=== PATIENT | female | born 1940 | race Caucasian/White ===

== ENCOUNTER 2017-08-19 17:36 | Emergency (ER) | payer MEDICARE, MEDICAID, SELFPAY ==
[2017-08-19 17:54] VITALS: BP 145/79; PULSE 89; RESP 18; TEMP 36.8; O2SAT 98; BMI 22.0
--- NOTE | 2017-08-19 18:08 | HMH.EDGENADL ---
ED Disposition Clinical Impression: RLL pneumonia, UTI (urinary tract infection) Disposition: Home, Self-Care Condition on Discharge: Fair Additional Instructions: 1- start abx 2- albuterol mdi q 4-6 hours. 3- continue mucinex 4- chest percussion. 5- follow up with Dr Dickinson in AM. 6- observe for fever and return for any new sx. Prescriptions: Albuterol Sulfate [Albuterol HFA Inhaler] 1 - 2 puffs IH Q4-6H PRN #1 inh PRN Reason: Shortness Of Breath Or Wheezing Azithromycin [Zithromax 250mg tab] 250 mg PO DIRECTED #6 tab cefUROXime axetil [Ceftin 250mg Tablet] 250 mg PO BID #20 tab Referrals: Triston Campos MD [Primary Care Provider] - - Critical Care Critical Care Time: No Attestation: On , the high probability of a clinically significant, sudden or life threatening deterioration of the following system(s) required my full and direct attention, intervention and personal management. The time I documented below is in addition to time spent performing reported procedures but includes the following listed in this critical care notation. Medical Decision Making Vital Signs: 08/19/17 17:54 Temperature 98.3 F Temperature Source Oral Pulse Rate [Right Brachial] 89 Respiratory Rate 18 Blood Pressure [Right Arm] 145/79 Blood Pressure Mean [Right Arm] 101 Blood Pressure Source [Right Arm] Automatic Cuff Blood Pressure Position [Right Arm] Sitting 02 Sat by Pulse Oximetry 98 Oxygen Delivery Method Room Air - Lab Data Lab results reviewed: Yes: I reviewed the patient's lab results. Lab Results 08/19/17 18:01: Urine Color Yellow, Urine Appearance Sl cloudy, Urine pH 6.0, Ur Specific [place] 1.025, Urine Protein Negative, Urine Glucose (UA) Negative, Urine Ketones Negative, Urine Blood 1+, Urine Nitrate Negative, Urine Bilirubin Negative, Urine Urobilinogen 0.2, Ur Leukocyte Esterase 1+ A, Urine RBC Occasional, Urine WBC 5-10, Ur Squamous Epith Cells 10-20, Urine Bacteria 1+ 08/19/17 18:05: WBC 9.5, RBC 4.30, Hgb 13.6, Hct 40.6, MCV 94.5, MCH 31.6 H, MCHC 33.5, RDW 12.1, Plt Count 180, MPV 8.7, Neut % (Auto) 76.1, Lymph % (Auto) 17.7, [place] % (Auto) 5.1, Eos % (Auto) 0.8, Baso % (Auto) 0.2, Neut # (Auto) 7.2, Lymph # (Auto) 1.7, [place] # (Auto) 0.5, Eos # (Auto) 0.1, Baso # (Auto) 0.0 08/19/17 18:05: Sodium 141, Potassium 4.3, Chloride 105, Carbon Dioxide 30, Anion Gap 10.3, BUN 20 H, Creatinine 0.95, Estimated Creat Clear 48, Estimated GFR 57 L, Est GFR ( Amer) 69, Glucose 98, Calcium 9.3, Total Bilirubin 0.4, AST 9 L, ALT 24, Alkaline Phosphatase 69, Total Protein 7.2, Albumin 3.1 L, Globulin 4.1 H, Albumin/Globulin Ratio 0.8 L Result diagrams: 08/19/17 18:05 08/19/17 18:05 Orders (Tests/Meds): ED MEDICATIONS Discontinued Medications Generic Name Dose Route Start Last Admin Trade Name Freq PRN Reason Stop Dose Admin Albuterol/Ipratropium 3 ml 08/19/17 18:13 Duoneb 3ml Neb IH 08/19/17 18:14 ONCE ONE Sodium Chloride 1,000 mls @ 999 mls/hr 08/19/17 18:15 Sod Chlor 0.9% 1000ml Bag IV 08/19/17 19:15 .Q1H1M JACQUI Ceftriaxone Sodium 1 gm/ 50 mls @ 100 mls/hr 08/19/17 18:11 Sodium Chloride IV 08/19/17 18:40 ONCE ONE ORDERS Category Date Time Status XR chest 2V Stat Exams 08/19/17 18:11 Taken Lactic Acid Stat Lab 08/19/17 16:45 Received Blood Culture Stat Micro 08/19/17 16:45 Received Sputum Culture & Gram Stain Stat Micro 08/19/17 18:11 Ordered Urine Culture Stat Micro 08/19/17 18:01 Received - Radiology Data #1 Image(s): Chest Image Reviewed: Yes I reviewed the patient's radiology image Preliminary Findings: Abnormal Right lower lobe infiltrate - Jacob Inquiry Pt receiving controlled substance: No Jacob was queried for this patient: No Medical Decision Making Narrative: I discussed with the patient and her family the need for admission to receive breathing treatments chest percussion and star
--- NOTE | 2017-08-19 18:11 | XR_ITS ---
XR chest 2V HISTORY: ITS.REASON: cough ORDERING PHYSICIAN: Wellington Price MD PATIENT AGE: 76 years COMPARISON: None available FINDINGS: There is borderline cardiomegaly without failure. Patchy density is present in the right lower lobe suspicious for developing pneumonia. The remaining lungs are clear. No obvious effusion. Wedge compression changes involve L1 vertebral body unchanged from older lumbar spine film of 10/16/2010. Kyphosis is present at the region with lordosis in the lower thoracic spine. IMPRESSION: Patchy pneumonia in the right lower lobe Chronic wedge compression changes of L1
[2017-08-19 18:22] LABS: Microscopic, Urine URINE MICROSCOPIC (MICROSCOPIC)
[2017-08-19 18:24] LABS: Basophils % 0.2 % (0.1-2.0); Eosinophils # 0.1 K/mm3 (0.0-0.4); Eosinophils % 0.8 % (0.1-12.0); Hematocrit 40.6 % (37.0-47.0); Hemoglobin 13.6 g/dL (12.2-16.2); Lymphocytes # 1.7 K/mm3 (0.7-4.5); Lymphocytes % 17.7 K/mm3 (10-50); Mean Corpuscular HGB Conc 33.5 g/dL (31.8-35.4); Mean Corpuscular Hemoglobin 31.6 pg (27.0-31.2); Mean Corpuscular Volume 94.5 fl (81-99); Mean Platelet Volume 8.7 fl (7.4-10.4); Monocytes # 0.5 K/mm3 (0.1-1.0); Monocytes % 5.1 % (1.7-9.3); Neutrophils # 7.2 K/mm3 (1.8-7.8); Neutrophils % 76.1 % (37.0-80.0); Platelet Count 180 K/mm3 (142-424); Red Cell Distribution Width 12.1 % (11.5-17.5); White Blood Count 9.5 K/mm3 (4.8-10.8)
[2017-08-19 18:30] LABS: Appearance,Urine SL CLOUDY (Clear); Bilirubin,Urine Negative (Negative); Blood, Urine 1+ (Negative); Color,Urine YELLOW (Yellow); Glucose,Urine (UA) Negative (Negative); Ketones,Urine Negative (Negative); Leukocyte Esterase,Urine 1+ (Negative); Nitrate,Urine Negative (Negative); Protein,Urine Negative (Negative); Specific Gravity, Urine 1.025 (1.005-1.030); Urobilinogen,Urine 0.2 EU/dl (0.2)
[2017-08-19 18:33] LABS: Alanine Aminotransferase 24 U/L (12-78); Albumin Level 3.1 gm/dL (3.4-5.0); Albumin/Globulin Ratio 0.8 (1.1-1.8); Alkaline Phosphatase 69 U/L (46-116); Anion Gap 10.3 mEq/L (5-15); Aspartate Amino Transferase 9 U/L (15-37); Bilirubin,Total 0.4 mg/dL (0.2-1.0); Blood Urea Nitrogen 20 mg/dL (7-18); Calcium 9.3 mg/dL (8.5-10.1); Carbon Dioxide 30 mmol/L (21.0-32.0); Chloride 105 mmol/L (98-107); Creatinine Clearance Estimated 48 mL/min (0-300); Creatinine,Serum 0.95 mg/dL (0.55-1.02); Estimated Glomerular Filt Rate 57 ml/min (>60); GFR (African American) 69 ML/MIN (>60); Globulin 4.1 gm/dl (1.3-3.2); Glucose 98 mg/dL (74-106); Potassium 4.3 mmoL/L (3.5-5.1); Sodium 141 mmol/L (136-145); Total Protein,Serum 7.2 gm/dL (6.4-8.2)
[2017-08-19 18:45] LABS: Bacteria,Urine 1+ /lpf; RBC,Urine Occasional #/hpf (0-3)
[2017-08-19 19:38] VITALS: PULSE 83; PULSE 85
[2017-08-19 19:51] LABS: Lactic Acid 1.1 mmol/L (0.4-2.0)
[2017-08-19 20:33] VITALS: BP 139/77; PULSE 85; RESP 18; TEMP 37.2; O2SAT 98
== END 2017-08-19 20:37 | disposition home or self-care (01) ==
PROVIDERS: Emergency Provider Emergency Medicine; Family Provider Family Medicine; PCP Family Medicine
DX: J18.1 Lobar pneumonia, unspecified organism (principal); N39.0 Urinary tract infection, site not specified
CPT/HCPCS: 71046; 80053; 81001; 83605; 85025; 87040; 87086; 87088; 87186; 96365; 96367; 99283

== ENCOUNTER → 2017-09-20 18:42 | Outpatient (CLI) | payer MEDICARE, MEDICAID, SELFPAY ==
--- NOTE | 2017-09-20 | XR_ITS ---
XR chest 2V HISTORY: ITS.REASON: PNEUMONIA DUE TO INFECTIOUS ORGANISM ORDERING PHYSICIAN: Triston Campos MD PATIENT AGE: 76 years COMPARISON: 08/19/2017 FINDINGS: The cardiomediastinal silhouette and pulmonary vascularity are within normal limits. There is chronic coarsening of the bronchovascular markings with no change in the patchy density in the right lung base which could be related to atelectasis infiltrate or chronic change. Patchy density also noted in the left lung base consistent with atelectasis or infiltrate. Reversal of the thoracic kyphosis once again noted. IMPRESSION: Chronic coarsening of the bronchovascular markings with patchy density in both lower lobes which could be related to combination of atelectasis and/or infiltrate with chronic change
== END ==
PROVIDERS: PCP Family Medicine; Visit Provider Family Medicine
DX: J18.9 Pneumonia, unspecified organism (principal)
CPT/HCPCS: 71046

== ENCOUNTER → 2018-01-13 12:05 | Outpatient (CLI) | payer MEDICARE, MEDICAID, SELFPAY ==
--- NOTE | 2018-01-13 12:14 | XR_ITS ---
XR ribs LT 2V HISTORY: Posttraumatic pain ITS.REASON: CHEST WALL PAIN ORDERING PHYSICIAN: Triston Campos MD PATIENT AGE: 77 years Comparison: None FINDINGS: Multiple views of the Left ribs were obtained. No fracture or dislocation. No lytic or blastic change. IMPRESSION: Negative RIBS. If pain persists, consider follow-up exam in 7-[address] with 3-D reformats.
--- NOTE | 2018-01-13 12:14 | XR_ITS ---
XR chest 2V HISTORY: ITS.REASON: CHEST WALL PAIN ORDERING PHYSICIAN: Triston Campos MD PATIENT AGE: 77 years COMPARISON: 09/20/2017 FINDINGS: The cardiomediastinal silhouette and pulmonary vascularity are within normal limits. Chronic changes are present in the lung bases. No lobar consolidation or collapse. Old wedge compression changes involve the L1 vertebral body change. No acute bony anomalies evident. IMPRESSION: No change with no acute finding.
== END ==
PROVIDERS: PCP Family Medicine; Visit Provider Family Medicine
DX: R07.89 Other chest pain (principal)
CPT/HCPCS: 71046; 71100

== ENCOUNTER → 2019-03-02 14:56 | Outpatient (CLI) | payer MEDICARE, MEDICAID, SELFPAY ==
--- NOTE | 2019-03-02 15:05 | CA_ITS ---
APPROVED REPORT Health Care / Medical Job Titles: SESAR Laterality: Bilateral Study Quality: Good Indications: RT BRUIT Risk Factors Smoking Doppler Spectral Velocity Analysis ECA (R) 130.00/11.30 cm/s ECA (L) 110.00/9.79 cm/s dICA (R) 113.00/23.70 cm/s dICA (L) 66.10/19.40 cm/s [place] (R) 106.00/24.70 cm/s [place] (L) 61.50/18.20 cm/s pICA (R) 92.80/18.80 cm/s pICA (L) 65.00/14.80 cm/s dCCA (R) 83.30/18.90 cm/s dCCA (L) 55.00/10.50 cm/s pCCA (R) 91.70/20.80 cm/s pCCA (L) 75.40/13.60 cm/s Vert (R) 85.90/ cm/s Vert (L) 58.10/13.70 cm/s ICA/CCA 1.35 ICA/CCA 1.18 Findings Duplex evaluation demonstrates stenosis of the right proximal internal carotid artery in the range of 20-49% with PSV <140 cm/sec, EDV <100 cm/sec, and IC/CC Ratio <4.0.Duplex evaluation demonstrates stenosis of the left proximal internal carotid artery in the range of 20-49% with PSV <140 cm/sec, EDV <100 cm/sec, and IC/CC Ratio <4.0. Retrograde flow seen right vertebral artery and antegrade flow seen left verterbral artery. Bilateral solid thyroid nodules seen. Conclusion Duplex evaluation demonstrates stenosis of the right proximal internal carotid artery in the range of 20-49% Stenosis of the left proximal internal carotid artery in the range of 20-49% Retrograde flow seen right vertebral artery which may be seen with subclavian stenosis and may be better evaluated with CTA. Antegrade flow seen left verterbral artery. Bilateral solid thyroid nodules seen. Consider dedicated thyroid ultrasound Electronically signed by : Timothy Oliver MD 03/03/2019 14:55:50
== END ==
PROVIDERS: PCP Family Medicine; Referring Provider Family Medicine; Visit Provider Family Medicine
DX: R09.89 Other specified symptoms and signs involving the circulatory and respiratory systems (principal)
CPT/HCPCS: 93880

== ENCOUNTER → 2019-03-09 18:42 | Outpatient (CLI) | payer MEDICARE, MEDICAID, SELFPAY ==
--- NOTE | 2019-03-09 18:51 | XR_ITS ---
PROCEDURE: XR LUMBAR SPINE MIN 4V CLINICAL INDICATION: RIGHT HIP PAIN COMPARISON: No exams were available for comparison FINDINGS: There is reversal of normal lordotic curvature with apex of the reversal of curvature at the L1 level. There is an old compression fracture of L1 with approximately 40 percent loss of height anteriorly and prominent anterior osteophytic spurring at the L1-2 level. There also is multilevel anterior and lateral osteophytic spurring at all levels of the lumbar spine along with multilevel disc space narrowing as well. There is no definite pars defect seen. There are mild hypertrophic facet changes at the L4-5 and L5-S1 levels. The SI joints are normal. IMPRESSION: Prominent multilevel degenerate changes as described with non recent compression fracture of L1 Dictated by: Dr. Dawson Mir MD 03/10/2019 08:[address] Dawson Mir MD in [place] 03/10/2019 08:45
--- NOTE | 2019-03-09 18:51 | XR_ITS ---
PROCEDURE: XR HIP RT 2-3V W/PELVIS CLINICAL INDICATION: RIGHT HIP PAIN COMPARISON: [id number] HIP LT 2-3V W/PELVIS IF PERFOR from 10/12/2016 FINDINGS: No fracture or dislocation is evident. There is moderate asymmetrical joint space narrowing of the right hip. There is mild asymmetrical joint space narrowing left hip. The SI joints and symphysis pubis appear normal. The soft tissues about both hips are normal. Prominent degenerate changes are seen lower lumbar spine described previously. IMPRESSION: Moderate osteoarthritic change right hip Dictated by: Dr. Dawson Mir MD 03/10/2019 08:[address] Dawson Mir MD in [place] 03/10/2019 08:58
== END ==
PROVIDERS: PCP Family Medicine; Visit Provider Family Medicine
DX: M25.551 Pain in right hip (principal); M54.5 Low back pain
CPT/HCPCS: 72110; 73502

== ENCOUNTER → 2020-05-31 12:53 | Outpatient (CLI) | payer MEDICARE, MEDICAID, SELFPAY ==
--- NOTE | 2020-05-31 13:00 | XR_ITS ---
PROCEDURE: XR CERVICAL SPINE 5V CLINICAL INDICATION: LT SHOULDER PAIN COMPARISON: No exams were available for comparison FINDINGS: C1 through C7 appear normal alignment. There is mild sclerotic appearance C3 possibly due to old mild compression fracture. There is osteophytic spurring anteriorly at the C3-4 and C4-5 and C5-6 levels. There is mild posterior osteophytic spurring mid cervical spine as well. There is disc space narrowing at the C3-4, C5-6 and C6-7 levels. Oblique films show prominent neural foraminal narrowing on the left side is see 5 6 and C6-7 and on the right side at the C4-5, C5-6 and C6-7 levels all likely due to a combination of posterior osteophytic spurring and spurring of the uncinate joints. The prevertebral soft tissues are normal and the odontoid is normal. IMPRESSION: Multilevel degenerate changes with bilateral neural foraminal narrowing as described Dictated by: Dr. Dawson Mir MD 05/31/2020 14:21 Dr. Dawson Mir MD in [place] 05/31/2020 14:21
--- NOTE | 2020-05-31 13:00 | XR_ITS ---
PROCEDURE: XR SHOULDER LT MIN 2V CLINICAL INDICATION: LT SHOULDER PAIN COMPARISON: No exams were available for comparison FINDINGS: The clavicle is intact, the AC joint is grossly normal though there is some spurring distal clavicle inferiorly. There is no subacromial stenosis. The humeral head and glenoid intact. There focal ossification or calcification just superior to the humeral head likely within the supraspinatus tendon. 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 Dawson Mir MD 05/31/2020 14:23 Dr. Dawson Mir MD in [place] 05/31/2020 14:23
== END ==
PROVIDERS: PCP Family Medicine; Visit Provider Family Medicine
DX: M25.512 Pain in left shoulder (principal)
CPT/HCPCS: 72050; 73030

== ENCOUNTER 2020-12-12 14:00 | Outpatient (RCR) | payer MEDICARE, MEDICAID, SELFPAY ==
--- NOTE | 2020-11-12 16:21 | HMH.PTOPEV ---
PT Outpatient Evaluation Rehab PT Outpatient Evaluation Start: 11/12/20 15:15 Freq: Status: Active Protocol: Document 11/12/20 16:04 WILLIAM (Rec: 11/12/20 16:21 [email or web address] [id number]) Electronically Signed By Tunde Olmos PT 11/12/20 16:04 Outpatient Therapy Subjective History Subjective History This is the initial Physical Therapy evaluation for Maura Carrero. Pt is an 80 y/o female referred to PT for c/o decreased balance and weakness . Pt reports issues began ~ 10+ years ago. Pt reports she was really bad ~ 5 years ago and had cervical surgery for severe spinal stenosis. Pt reports this improved her balance for a bit but has recently began to decline again. Pt now reports to PT for improvement in balance and strength. 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 Yes Prior Functional Limitations Prior Functional [place] Level I/Mod I w/ ADL's Hx of Falls Hx Falls Yes Number in last 6 months 1 Gait/Posture Asssessment General Gait Observation Wide Based Gait,Ataxic Gait, Shuffling Step Assistive Devices Straight Cane Level of Transfer Assist Assistance x1 Nystagmus Nystagmus Presence None Timed Up and Go Test 1. Is the Timed Up and Go test result > yes or = to 12 seconds? [place] Feet Together/Eyes open/Stable Surface fail Feet Together/Eyes Closed/Stable Surface fail Feet Together/Eyes open/Unstable Surface fail Feet Together/Eyes Closed/Unstable fail Surface Outpatient Therapy Assessment Impairments Problems/Impairmments Impaired Gait Pattern,Impaired Walking,Impaired Standing, Impaired Shower/Bathing, Impaired Household Care,
== END 2020-12-12 14:05 | disposition home or self-care (01) ==
LOC: PT 14:00
PROVIDERS: PCP Family Medicine; Visit Provider Family Medicine
DX: R27.0 Ataxia, unspecified (principal)
CPT/HCPCS: 97110; 97112; 97163; 97530

== ENCOUNTER 2021-01-02 16:49 | Inpatient (IN) | payer MEDICARE, MEDICAID, SELFPAY ==
[2021-01-02] VITALS (9 sets, daily range): BP systolic 135–222; BP diastolic 63–110; PULSE 89–121; RESP 16–20; TEMP 36.4–36.9; O2SAT 15–100; BMI 27.4; BMI 26.4
--- NOTE | 2021-01-02 17:14 | XR_ITS ---
PROCEDURE INFORMATION: Exam: XR Chest Exam date and time: 01/02/2021 5:14 PM Age: 80 years old Clinical indication: Other: AMS TECHNIQUE: Imaging protocol: XR of the chest. Views: 1 view. COMPARISON: CR CXR2V XR chest 2V 01/13/2018 12:19 PM FINDINGS: Lungs: No definite focal pulmonary infiltrate. Pleural spaces: No right pleural effusion is apparent. The left costophrenic sulcus is obscured and there may be a left pleural effusion. Heart/Mediastinum: See Vasculature finding. Vasculature: Mild cardiomegaly with tortuosity of thoracic aorta. Atherosclerosis. Diaphragm: Eventration of the right hemidiaphragm is again noted. Bones/joints: Skeletal degeneration. IMPRESSION: No consolidation is seen in the upper lobes. The left lower lobe is obscured and there could be subsegmental atelectasis, pneumonia and/or effusion among other etiologies.
--- NOTE | 2021-01-02 17:14 | CT_ITS ---
PROCEDURE INFORMATION: Exam: CT Head Without Contrast Exam date and time: 01/02/2021 5:14 PM Age: 80 years old Clinical indication: Injury or trauma; Blunt trauma (contusions or hematomas); Altered mental status/memory loss; Patient HX: Falling frequently, confused; Additional info: Head trauma mod-severe TECHNIQUE: Imaging protocol: Computed tomography of the head without contrast. 3D rendering (Not supervised by radiologist): MIP and/or 3D reconstructed images were created by the technologist. Radiation optimization: All CT scans at this facility use at least one of these dose optimization techniques: automated exposure control; mA and/or kV adjustment per patient size (includes targeted exams where dose is matched to clinical indication); or iterative reconstruction. COMPARISON: BRW/O MRI-BRAIN W/O 07/15/2015 9:45 AM FINDINGS: Limitations: Patient motion which obscures detail. At least 3 attempts were made at scanning the patient. Brain: No definite acute intracranial hemorrhage. The brain cannot be evaluated for possible acute infarction due to motion. Cerebral ventricles: The ventricles appear mildly enlarged, but not out of proportion to the degree of parenchymal volume loss. Paranasal sinuses: No definite sinusitis. Mastoid air cells: Mastoid air cells and middle ear cavities appear clear. Bones/joints: Facial bone fracture cannot be excluded. There does not appear to be a calvarial fracture. Soft tissues: Unremarkable. IMPRESSION: Limited examination although at least 3 attempts were made to scan the patient. No obvious acute intracranial hemorrhage.
[2021-01-02 17:29] LABS: Basophils # 0.1 K/mm3 (0-0.2); Basophils % 0.5 % (0.1-2.0); Eosinophils # 0.1 K/mm3 (0.0-0.4); Eosinophils % 0.5 % (0.1-12.0); Hematocrit 44.9 % (37.0-47.0); Hemoglobin 15.5 g/dL (12.2-16.2); Lymphocytes # 1.2 K/mm3 (0.7-4.5); Lymphocytes % 11.1 % (10-50); Mean Corpuscular HGB Conc 34.6 g/dL (31.8-35.4); Mean Corpuscular Hemoglobin 32.3 pg (27.0-31.2); Mean Corpuscular Volume 93.3 fl (81-99); Mean Platelet Volume 8.7 fl (7.4-10.4); Monocytes # 0.5 K/mm3 (0.1-1.0); Monocytes % 4.5 % (1.7-9.3); Neutrophils # 8.6 K/mm3 (1.8-7.8); Neutrophils % 83.4 % (37.0-80.0); Platelet Count 238 K/mm3 (142-424); Red Blood Count 4.81 M/mm3 (4.20-5.40); White Blood Count 10.3 K/mm3 (4.8-10.8)
[2021-01-02 17:37] LABS: Alanine Aminotransferase 36 U/L (12-78); Albumin Level 4.6 g/dl (3.5-5.0); Albumin/Globulin Ratio 1.4 (1.1-1.8); Alkaline Phosphatase 96 U/L (38-126); Anion Gap 14.8 mEq/L (5-15); Aspartate Amino Transferase 37 U/L (14-36); Bilirubin,Total 0.8 mg/dl (0.2-1.3); Blood Urea Nitrogen 11 mg/dl (7-17); Calcium 9.4 mg/dl (8.4-10.2); Carbon Dioxide 27 mmol/L (22.0-30.0); Chloride 105 mmol/L (98-107); Creatinine Clearance Estimated 51 mL/min (50-200); Estimated Glomerular Filt Rate 60 ml/min (>60); GFR (African American) 73 ML/MIN (>60); Globulin 3.4 g/dL (1.3-3.2); Glucose 118 mg/dl (74-100); Potassium 3.8 mmoL/L (3.5-5.1); Sodium 143 mmol/L (136-145)
[2021-01-02 17:48] LABS: Troponin I 0.09 ng/ml (0.00-0.034)
[2021-01-02 18:18] LABS: Microscopic, Urine URINE MICROSCOPIC (MICROSCOPIC)
[2021-01-02 18:21] LABS: Appearance,Urine CLEAR (Clear); Bilirubin,Urine Negative (Negative); Blood, Urine TRACE-I (Negative); Color,Urine YELLOW (Yellow); Glucose,Urine (UA) Negative (Negative); Ketones,Urine 1+ (Negative); Leukocyte Esterase,Urine Negative (Negative); Nitrate,Urine Negative (Negative); PH,Urine 8.5 (5.0-8.5); Protein,Urine TRACE (Negative); Urobilinogen,Urine 0.2 EU/dl (0.2)
[2021-01-02 18:33] LABS: Bacteria,Urine Trace /lpf; RBC,Urine Occasional #/hpf (0-3); Squamous Epithelial Cell,Urine Occasional #/hpf (0-5); WBC,Urine Occasional #/hpf (0-3)
[2021-01-02 18:55] LABS: Coronavirus 19, PCR Not Detected (NotDetected); Influenza A, PCR Not Detected (NotDetected); Influenza B, PCR Not Detected (NotDetected)
--- NOTE | 2021-01-02 19:14 | HMH.EDGENADL ---
ED Disposition Clinical Impression: Delirium due to another medical condition Urinary tract infection Qualifiers: Urinary tract infection type: acute cystitis Hematuria presence: with hematuria Qualified Code(s): N30.01 - Acute cystitis with hematuria Disposition: Still a Patient Condition on Discharge: Fair Referrals: Triston Campos MD [Primary Care Provider] - - Critical Care Critical Care Time: No Attestation: On 01/02/21, the high probability of a clinically significant, sudden or life threatening deterioration of the following system(s) required my full and direct attention, intervention and personal management. The time I documented below is in addition to time spent performing reported procedures but includes the following listed in this critical care notation. Medical Decision Making - Medical Records Medical records reviewed: Yes: I reviewed the patient's medical records. - Jacob Inquiry Pt receiving controlled substance: No Vital Signs: 01/02/21 16:51 Temperature 97.6 F Temperature Source Oral Pulse Rate [Radial] 108 H Respiratory Rate 16 Blood Pressure [Right Arm] 164/78 H Blood Pressure Mean [Right Arm] 106 02 Sat by Pulse Oximetry 95 Oxygen Delivery Method Room Air - Lab Data Lab Results 01/02/21 17:13: WBC 10.3, RBC 4.81, Hgb 15.5, Hct 44.9, MCV 93.3, MCH 32.3 H, MCHC 34.6, RDW 13.0, Plt Count 238, MPV 8.7, Neut % (Auto) 83.4 H, Lymph % (Auto) 11.1, [place] % (Auto) 4.5, Eos % (Auto) 0.5, Baso % (Auto) 0.5, Neut # (Auto) 8.6 H, Lymph # (Auto) 1.2, [place] # (Auto) 0.5, Eos # (Auto) 0.1, Baso # (Auto) 0.1 01/02/21 17:13: Sodium 143, Potassium 3.8, Chloride 105, Carbon Dioxide 27, Anion Gap 14.8, BUN 11, Creatinine 0.90, Estimated Creat Clear 51, Estimated GFR 60, Est GFR ( Amer) 73, Glucose 118 H, Calcium 9.4, Total Bilirubin 0.8, AST 37 H, ALT 36, Alkaline Phosphatase 96, Troponin I 0.09 H, Total Protein 8.0, Albumin 4.6, Globulin 3.4 H, Albumin/Globulin Ratio 1.4 01/02/21 18:15: Urine Color Yellow, Urine Appearance Clear, Urine pH 8.5, Ur Specific [place] 1.020, Urine Protein Trace, Urine Glucose (UA) Negative, Urine Ketones 1+, Urine Blood Trace-i, Urine Nitrate Negative, Urine Bilirubin Negative, Urine Urobilinogen 0.2, Ur Leukocyte Esterase Negative, Urine RBC Occasional, Urine WBC Occasional, Ur Squamous Epith Cells Occasional, Urine Bacteria Trace 01/02/21 18:55: SARS-CoV-2 (PCR) Not detected, Influenza A Untype (PCR) Not detected, Influenza Type B (PCR) Not detected Result diagrams: 01/02/21 17:13 01/02/21 17:13 Orders (Tests/Meds): ORDERS Category Date Time Status Troponin I Q3H Lab 01/02/21 20:15 Ordered Troponin I Q3H Lab 01/02/21 23:15 Ordered UDS [Drug Screen,Urine] Stat Lab 01/02/21 19:10 Ordered Medical Decision Narrative: 80-year-old female who had a fall today and appears to be suffering from acute delirium. Differential will include intracranial injury, pneumonia, urinary tract infection, and others. Chest x-ray demonstrates subsegmental atelectasis with no clear consolidation. Patient also has a cath specimen which is positive for bacteria and will be covered with ceftriaxone. Patient's troponin is 0.09 which is intermediate and will require a delta troponin. CT of the head demonstrates no acute abnormalities and is somewhat limited due to motion. Patient was discussed with Dr. Luo admitting for [place]. General Adult HPI - General Chief complaint: Fall Stated complaint: AO [id number]@1300 fell Time Seen by Provider: 01/02/21 17:15 Mode of Arrival: Wheelchair Limitations: No Limitations Description of Symptoms (Recalled from ER Triage Doc. by RN): Daughter found pt lying in floor at 1300, states she has had increased confusion, worries it is possibly r/t taking ativan daily. - History of Present Illness HPI narrative: 80 year-old female with a history of multiple recent falls who is normally functional able to walk around and not overly confu
--- NOTE | 2021-01-02 19:28 | ECG_ITS ---
APPROVED REPORT Exam: Resting ECG HR:96 bpm ECG Measurements Heart Rate 96 AXES [place] 182 P 58 QRSd 84 QRS -2 QT 378 T 94 QTc 477 Conclusion Normal sinus rhythm Abnormal QRS-T angle, consider primary T wave abnormality Prolonged QT Abnormal ECG Electronically signed by : Chan Márquez, 01/04/2021 07:31:23
[2021-01-02 20:00] LABS: Barbiturates Screen,Urine Negative ng/ml (<200)
[2021-01-02 20:01] LABS: Amphetamine/Metha Screen,Urine Negative ng/ml (<1000); Benzodiazepines Screen,Urine Negative ng/ml (<200)
[2021-01-02 20:02] LABS: Cocaine Screen,Urine Negative ng/ml (<300)
[2021-01-02 20:03] LABS: Cannabinoid Screen,Urine Negative ng/ml (<50); Methadone Screen,Urine Negative ng/ml (<300)
[2021-01-02 20:04] LABS: Opiate Screen,Urine Negative ng/ml (<300); Phencyclidine Screen,Urine Negative ng/ml (<25)
--- NOTE | 2021-01-02 20:48 | PC.NURSE ---
patient up to floor via stretcher.
[2021-01-02 21:13] LABS: Troponin I 0.23 ng/ml (0.00-0.034)
--- NOTE | 2021-01-02 22:35 | CT_ITS ---
PROCEDURE INFORMATION: Exam: CT Head Without Contrast Exam date and time: 01/02/2021 10:35 PM Age: 80 years old Clinical indication: Speech disturbance; Patient HX: Seizures; Additional info: Seizure TECHNIQUE: Imaging protocol: Computed tomography of the head without contrast. 3D rendering (Not supervised by radiologist): MIP and/or 3D reconstructed images were created by the technologist. Radiation optimization: All CT scans at this facility use at least one of these dose optimization techniques: automated exposure control; mA and/or kV adjustment per patient size (includes targeted exams where dose is matched to clinical indication); or iterative reconstruction. COMPARISON: CT HEAD/BRAIN WO CON 01/02/2021 5:29 PM FINDINGS: Brain: No acute intracranial hemorrhage, mass effect or midline shift. No large acute cortical infarct. Periventricular and subcortical white matter hypodensities are nonspecific but likely related to chronic small vessel ischemic changes. Cerebral ventricles: No ventriculomegaly. Paranasal sinuses: Visualized sinuses are unremarkable. No fluid levels. Mastoid air cells: Visualized mastoid air cells are well aerated. Orbital cavity: Postoperative changes of the globes noted. Bones/joints: Unremarkable. No acute fracture. Soft tissues: Unremarkable. IMPRESSION: No acute intracranial findings.
[2021-01-02 22:57] LABS: POC Glucose,Bedside 110 (70-110)
[2021-01-02 23:00] LABS: Basophils # 0.1 K/mm3 (0-0.2); Basophils % 0.5 % (0.1-2.0); Eosinophils # 0.1 K/mm3 (0.0-0.4); Eosinophils % 0.8 % (0.1-12.0); Hematocrit 45.8 % (37.0-47.0); Hemoglobin 15.5 g/dL (12.2-16.2); Lymphocytes # 1.8 K/mm3 (0.7-4.5); Lymphocytes % 18.2 % (10-50); Mean Corpuscular HGB Conc 33.8 g/dL (31.8-35.4); Mean Corpuscular Hemoglobin 32.5 pg (27.0-31.2); Mean Corpuscular Volume 96.1 fl (81-99); Mean Platelet Volume 8.9 fl (7.4-10.4); Monocytes # 0.5 K/mm3 (0.1-1.0); Monocytes % 5.6 % (1.7-9.3); Neutrophils # 7.3 K/mm3 (1.8-7.8); Neutrophils % 74.9 % (37.0-80.0); Platelet Count 242 K/mm3 (142-424); Red Blood Count 4.77 M/mm3 (4.20-5.40); Red Cell Distribution Width 12.7 % (11.5-17.5); White Blood Count 9.7 K/mm3 (4.8-10.8)
[2021-01-02 23:02] LABS: Chloride 105 mmol/L (98-107); Sodium 143 mmol/L (136-145)
[2021-01-02 23:03] LABS: Potassium 3.6 mmoL/L (3.5-5.1)
[2021-01-02 23:05] LABS: Blood Urea Nitrogen 9 mg/dl (7-17); Creatine Kinase 199 U/L (30-135); Creatinine Clearance Estimated 49 mL/min (50-200); Estimated Glomerular Filt Rate 60 ml/min (>60); GFR (African American) 73 ML/MIN (>60)
[2021-01-02 23:06] LABS: Anion Gap 22.6 mEq/L (5-15); Calcium 9.1 mg/dl (8.4-10.2); Carbon Dioxide 19 mmol/L (22.0-30.0); Glucose 187 mg/dl (74-100)
[2021-01-03] VITALS (9 sets, daily range): BP systolic 134–167; BP diastolic 67–96; PULSE 80–92; RESP 17–19; TEMP 36.4–37.1; O2SAT 93–99; BMI 26.4
[2021-01-03 00:08] LABS: Troponin I 0.25 ng/ml (0.00-0.034)
[2021-01-03 00:40] LABS: Lactic Acid 2.3 mmol/L (0.7-2.1)
--- NOTE | 2021-01-03 01:40 | HMH.RR ---
Acute Rapid Response Note - Subjective Date Responded: 01/02/21 Time Responded: 22:10 Provider Note: I was called to rapid response for a patient with altered mental status. Patient not speaking on my arrival. Nursing staff concerned for seizure-like activity. She was laying in bed, eyes roving side to side. Protecting her airway. Pursed breathing. No purposeful movements. 80 year old female admitted to the hospital for generalized altered mental status, falls, confusion. Emergency department work-up was concerning for urinary tract infection and pneumonia. Patient receiving antibiotics. She has a seizure history. Takes Keppra. Also has been taking lorazepam 1 mg twice daily. Daughter is unsure if she is taking all medications exactly as prescribed. Has become more and more confused over the last few weeks. More frequent falls. - Objective Findings: Vital Signs - Last 4 Hours Temperature 98.3 F 01/03/21 00:00 Temperature Source Oral 01/03/21 00:00 Pulse Rate 92 H 01/03/21 00:00 Respiratory Rate 18 01/03/21 00:00 Blood Pressure 134/67 01/03/21 00:00 Blood Pressure Mean 89 01/03/21 00:00 Blood Pressure Source Automatic Cuff 01/03/21 00:00 Blood Pressure Position Supine 01/03/21 00:00 02 Sat by Pulse Oximetry 99 01/03/21 00:00 Oxygen Delivery Method 01/03/21 00:00 Oxygen Flow Rate (LPM) 15 01/03/21 00:00 Lab Results for Past 12 Hours 01/02/21 23:40: Lactate 2.3 H 01/02/21 22:50: Sodium 143, Potassium 3.6, Chloride 105, Carbon Dioxide 19 L D, Anion Gap 22.6 H, BUN 9, Creatinine 0.90, Estimated Creat Clear 49, Estimated GFR 60, Est GFR ( Amer) 73, Glucose 187 H D, Calcium 9.1, Total Creatine Kinase 199 H 01/02/21 22:50: WBC 9.7, RBC 4.77, Hgb 15.5, Hct 45.8, MCV 96.1, MCH 32.5 H, MCHC 33.8, RDW 12.7, Plt Count 242, MPV 8.9, Neut % (Auto) 74.9, Lymph % (Auto) 18.2, [place] % (Auto) 5.6, Eos % (Auto) 0.8, Baso % (Auto) 0.5, Neut # (Auto) 7.3, Lymph # (Auto) 1.8, [place] # (Auto) 0.5, Eos # (Auto) 0.1, Baso # (Auto) 0.1 01/02/21 22:50: Troponin I 0.25 H 01/02/21 22:06: POC Glucose 110 01/02/21 20:30: Troponin I 0.23 H 01/02/21 18:55: SARS-CoV-2 (PCR) Not detected, Influenza A Untype (PCR) Not detected, Influenza Type B (PCR) Not detected 01/02/21 18:15: Urine Opiates Screen Negative, Urine Methadone Screen Negative, Ur Barbituates Screen Negative, Ur Phencyclidine Scrn Negative, Ur Amphetamines Screen Negative, U Benzodiazepines Scrn Negative, Urine Cocaine Screen Negative, U Marijuana (THC) Screen Negative 01/02/21 18:15: Urine Color Yellow, Urine Appearance Clear, Urine pH 8.5, Ur Specific [place] 1.020, Urine Protein Trace, Urine Glucose (UA) Negative, Urine Ketones 1+, Urine Blood Trace-i, Urine Nitrate Negative, Urine Bilirubin Negative, Urine Urobilinogen 0.2, Ur Leukocyte Esterase Negative, Urine RBC Occasional, Urine WBC Occasional, Ur Squamous Epith Cells Occasional, Urine Bacteria Trace 01/02/21 17:13: Sodium 143, Potassium 3.8, Chloride 105, Carbon Dioxide 27, Anion Gap 14.8, BUN 11, Creatinine 0.90, Estimated Creat Clear 51, Estimated GFR 60, Est GFR ( Amer) 73, Glucose 118 H, Calcium 9.4, Total Bilirubin 0.8, AST 37 H, ALT 36, Alkaline Phosphatase 96, Troponin I 0.09 H, Total Protein 8.0, Albumin 4.6, Globulin 3.4 H, Albumin/Globulin Ratio 1.4 01/02/21 17:13: WBC 10.3, RBC 4.81, Hgb 15.5, Hct 44.9, MCV 93.3, MCH 32.3 H, MCHC 34.6, RDW 13.0, Plt Count 238, MPV 8.7, Neut % (Auto) 83.4 H, Lymph % (Auto) 11.1, [place] % (Auto) 4.5, Eos % (Auto) 0.5, Baso % (Auto) 0.5, Neut # (Auto) 8.6 H, Lymph # (Auto) 1.2, [place] # (Auto) 0.5, Eos # (Auto) 0.1, Baso # (Auto) 0.1 My Orders Category Date Time Status CT head/brain wo con Stat Cat Scan 01/02/21 22:35 Completed BMP [Basic Metabolic Panel] Stat Lab 01/02/21 22:50 Completed CBC w/Auto Diff [Complete Blood Count Auto Diff] Stat Lab 01/02/21 22:50 Completed CK [Creatine Kinase] Stat Lab 01/02/21 22:50 Completed Lactic Acid Stat Lab 01/02/21 23:4
--- NOTE | 2021-01-03 02:54 | CT_ITS ---
PROCEDURE INFORMATION: Exam: CT Angiography Head With Contrast, Arteriography Exam date and time: 01/03/2021 2:54 AM Age: 80 years old Clinical indication: Speech disturbance and weakness; Patient HX: Weakness, speech slurring; Additional info: Speech difficulty TECHNIQUE: Imaging protocol: Computed tomography angiography of the head with contrast. Exam focused on the arteries. 3D rendering (Not supervised by radiologist): MIP and/or 3D reconstructed images were created by the technologist. Radiation optimization: All CT scans at this facility use at least one of these dose optimization techniques: automated exposure control; mA and/or kV adjustment per patient size (includes targeted exams where dose is matched to clinical indication); or iterative reconstruction. Contrast material: ISOVUE 370; Contrast volume: 100 ml; Contrast route: INTRAVENOUS (IV); COMPARISON: CT HEAD/BRAIN WO CON 01/02/2021 11:18 PM FINDINGS: ANTERIOR CIRCULATION: Right internal carotid artery: There are mural calcifications and plaque along the course of the intracranial internal carotid artery. There is no resulting stenosis of the intracranial segments. Right middle cerebral artery: Unremarkable. No occlusion or significant stenosis. No aneurysm. Right anterior cerebral artery: Unremarkable. No occlusion or significant stenosis. No aneurysm. Left internal carotid artery: There are mural calcifications and plaque along the course of the intracranial internal carotid artery. There is no resulting stenosis of the intracranial segments. Left middle cerebral artery: Unremarkable. No occlusion or significant stenosis. No aneurysm. Left anterior cerebral artery: Unremarkable. No occlusion or significant stenosis. No aneurysm. POSTERIOR CIRCULATION: Right vertebral artery: Unremarkable. No occlusion or significant stenosis. No aneurysm. Left vertebral artery: Unremarkable. No occlusion or significant stenosis. No aneurysm. Basilar artery: Unremarkable. No occlusion or significant stenosis. No aneurysm. Right posterior cerebral artery: There is an hypoplastic P1 segment. The P2 segment is supplied by a patent P-comm. No occlusion or significant stenosis. No aneurysm. Left posterior cerebral artery: There is an hypoplastic P1 segment. The P2 segment is supplied by a patent P-comm. No occlusion or significant stenosis. No aneurysm. Brain: No definite mass, mass effect, or midline shift. Cerebral ventricles: No ventriculomegaly. Bones/joints: Unremarkable. No acute fracture. Soft tissues: Unremarkable. IMPRESSION: There are atherosclerotic changes of the bilateral intracranial internal carotid arteries but no resulting significant stenosis. No evidence of intracranial large vessel stenosis or occlusion of the remaining intracranial arterial vasculature. No evidence of aneurysm or AVM.
--- NOTE | 2021-01-03 02:54 | CT_ITS ---
PROCEDURE INFORMATION: Exam: CT Angiography Neck With Contrast Exam date and time: 01/03/2021 2:54 AM Age: 80 years old Clinical indication: Weakness; Additional info: Speech difficulty TECHNIQUE: Imaging protocol: Computed tomography angiography of the neck with contrast. 3D rendering (Not supervised by radiologist): MIP and/or 3D reconstructed images were created by the technologist. Radiation optimization: All CT scans at this facility use at least one of these dose optimization techniques: automated exposure control; mA and/or kV adjustment per patient size (includes targeted exams where dose is matched to clinical indication); or iterative reconstruction. Contrast material: ISOVUE 370; Contrast volume: 100 ml; Contrast route: INTRAVENOUS (IV); COMPARISON: US CA CAROTID DUPLEX BI 03/02/2019 3:28 PM FINDINGS: Right common carotid artery: Unremarkable. No significant stenosis. No dissection or occlusion. Right internal carotid artery: There is calcified mural plaque at the carotid bifurcation, but no significant stenosis. The remaining extracranial segment is patent with no significant stenosis. No dissection or occlusion. Right external carotid artery: No occlusion or stenosis of the origin. Left common carotid artery: Unremarkable. No significant stenosis. No dissection or occlusion. Left internal carotid artery: There is calcified mural plaque at the carotid bifurcation, but no significant stenosis. The remaining extracranial segment is patent with no significant stenosis. No dissection or occlusion. Left external carotid artery: No occlusion or stenosis of the origin. Right vertebral artery: No stenosis. No dissection or occlusion. Left vertebral artery: No stenosis. No dissection or occlusion. Thyroid: As seen the prior MR cervical spine 07/15/2015 9:45 a.m. , there is a 2.5 cm nodule or cyst in the right thyroid lobe with thin rim calcification. Soft tissues: Normal. No significant soft tissue swelling. Bones/joints: No acute fracture. IMPRESSION: [id number] calcific atherosclerotic changes at the bilateral carotid bifurcations, but no significant stenosis or occlusion. Otherwise no additional evidence of cervical great vessel stenosis or occlusion. COMMENTS: Consistent with the [employer]'s Incidental Findings Committee white paper (J Am Calvin Radiol 2015): In patients aged 35 years and older with an incidental thyroid nodule equal to or greater than 1.[address], MRI or extrathyroidal US, further evaluation with dedicated thyroid US is recommended for patients with normal life expectancy and without comorbidities. For smaller nodules without suspicious features, no further evaluation or follow up is recommended. REFERENCES: NASCET CRITERIA. The degree of internal carotid artery stenosis is based on NASCET criteria. Normal is no stenosis. Mild is less than 50% stenosis. Moderate is 50-69% stenosis. Severe is 70% to 99% stenosis. Total occlusion is no detectable patent lumen.
[2021-01-03 03:47] LABS: Reflex Lactic Add Lactic Reflex
[2021-01-03 04:52] LABS: Lactic Acid Follow Up (RFLX 1) 0.9 mmol/L (0.7-2.1)
[2021-01-03 06:09] LABS: POC Glucose,Bedside 112 (70-110)
[2021-01-03 06:32] LABS: Basophils # 0.1 K/mm3 (0-0.2); Basophils % 0.5 % (0.1-2.0); Eosinophils # 0.1 K/mm3 (0.0-0.4); Eosinophils % 0.9 % (0.1-12.0); Hematocrit 40.9 % (37.0-47.0); Lymphocytes % 20.2 % (10-50); Mean Corpuscular Hemoglobin 32.2 pg (27.0-31.2); Mean Corpuscular Volume 94.8 fl (81-99); Mean Platelet Volume 8.5 fl (7.4-10.4); Monocytes # 0.7 K/mm3 (0.1-1.0); Monocytes % 6.7 % (1.7-9.3); Neutrophils # 7.2 K/mm3 (1.8-7.8); Neutrophils % 71.7 % (37.0-80.0); Platelet Count 248 K/mm3 (142-424); Red Blood Count 4.32 M/mm3 (4.20-5.40); Red Cell Distribution Width 12.8 % (11.5-17.5); White Blood Count 10.1 K/mm3 (4.8-10.8)
[2021-01-03 07:01] LABS: Anion Gap 11.7 mEq/L (5-15); Blood Urea Nitrogen 13 mg/dl (7-17); Calcium 8.5 mg/dl (8.4-10.2); Carbon Dioxide 25 mmol/L (22.0-30.0); Chloride 106 mmol/L (98-107); Creatinine Clearance Estimated 49 mL/min (50-200); Estimated Glomerular Filt Rate 60 ml/min (>60); GFR (African American) 73 ML/MIN (>60); Glucose 110 mg/dl (74-100); Potassium 3.7 mmoL/L (3.5-5.1); Sodium 139 mmol/L (136-145)
[2021-01-03 07:13] LABS: Hemoglobin 13.9 g/dL (12.2-16.2)
--- NOTE | 2021-01-03 07:26 | HMH.PHAVTE ---
[facility] VTE Monitoring - Patient Demographics Admission date: 01/02/21 Report Date: 01/03/21 Time: 07:26 Allergies/Adverse Reactions: Patient Allergies CODEINE Allergy (Intermediate, Uncoded 06/22/17 15:17) I-ITCHING Height: 1.65 m Weight: 71.923 kg Patient Problems: Current Active Problems UTI (urinary tract infection) (Acute) Delirium due to another medical condition (Acute) Seizure (Acute) - VTE Risk Labs: VTE Related Lab Results Hgb 13.9 g/dL (12.2-16.2) D 01/03/21 06:09 Hct 40.9 % (37.0-47.0) 01/03/21 06:09 Plt Count 248 K/mm3 (142-424) 01/03/21 06:09 BUN 13 mg/dl (7-17) D 01/03/21 06:09 Creatinine 0.90 mg/dl (0.52-1.04) 01/03/21 06:09 Estimated Creat Clear 49 mL/min (50-200) 01/03/21 06:09 Clinical Trial Participant: No - Prophylaxis VTE Prophylaxis Ordered?: Yes Types of VTE Prophylaxis: IPCS Knee High
--- NOTE | 2021-01-03 07:35 | HMH.PHAINT ---
home medication list verified using list from [facility]
--- NOTE | 2021-01-03 08:45 | HMH.HP ---
*Admission Date: 01/02/21 <Leena Bhagat 01/03/21 08:58> *Chief complaint: AMS <Leena Bhagat 01/03/21 08:58> *History of present illness: Ms. Carrero is an 80-year-old female with a history of hypertension, chronic back pain, seizure disorder, anxiety depression, and GERD who has had multiple falls in the last few weeks. She was seen in the office of [facility] on 12/30/2020 and had a urinalysis with urine culture. It was felt she may have a urinary tract infection. Her daughter states she began having a lot of confusion and when they went to her home they found her in the floor having fallen yesterday. They're unsure how long she laid in the floor. She was very confused and didn't even recognize her daughter. She was transported to the emergency room for evaluation. Her CBC was unremarkable. Her troponins were elevated and are trending upward. Her lactic acid was elevated. Her urine showed a possible UTI. She was admitted and started on IV antibiotics. Her daughter states when she got to the floor last night, she had a seizure around 8 PM. She has not had a seizure since 2012. She was given Ativan 1 mg and continued to have seizure-like activity, therefore she was given an additional 2 mg. She was also given 1 g of Keppra IV. Her daughter states since this time she has been asleep and does not respond at all. <Leena Bhagat 01/03/21 08:58> [facility] History I have reviewed the patient's past medical history: Yes <Leena Bhagat 01/03/21 08:58> Medical History: Reports:: Anxiety, Gastroesophageal Reflux Disease(GERD), Hypertension, Seizures Denies:: Diabetes Mellitus Type 1, Diabetes Mellitus Type 2 <Leena Bhagat 01/03/21 08:58> *Have you ever received a pneumonia vaccine?: Yes <Leena Bhagat 01/03/21 08:58> *Have you received a flu vaccine this season?: Yes <Leena Bhagat 01/03/21 08:58> Other Medical History: Reports: Other (Chronic back pain) <Leena Bhagat 01/03/21 08:58> Laterality Cases: Bilateral: Cataract <Leena Bhagat 01/03/21 08:58> Other Surgeries: Yes: Other (Back surgery due to spinal stenosis) <Leena Bhagat 01/03/21 08:58> - *Social History Last grade of school completed: 7th or 8th <Leena Bhagat 01/03/21 08:58> Smoking Status: Former smoker <Leena Bhagat 01/03/21 08:58> Tobacco Type: cigarettes <Leena Bhagat 01/03/21 08:58> Alcohol Intake: never <Leena Bhagat 01/03/21 08:58> *Occupational Status:: retired <Leena Bhagat 01/03/21 08:58> Housing: apartment <Leena Bhagat 01/03/21 08:58> Household Members: children <Leena Bhagat 01/03/21 08:58> *Travel in the last 8 weeks: None <Leena Bhagat 01/03/21 08:58> - Psychiatric History Pschychiatric History:: Reports:: Anxiety <Leena Bhagat 01/03/21 08:58> Family Hx:: Cancer, Heart Attack <Leena Bhagat 01/03/21 08:58> Review of Systems - Review of Systems Review of systems:: unable to obtain <Leena Bhagat 01/03/21 08:58> Meds Home Medications Medication Instructions Recorded Confirmed Type Aspirin [Aspirin 81mg chewable 81 mg PO DAILY 01/02/21 01/02/21 History tab] Celecoxib 100 mg PO DAILY 01/02/21 01/02/21 History Duloxetine HCl 60 mg PO DAILY 01/02/21 01/02/21 History Esomeprazole Magnesium 40 mg PO DAILY 01/02/21 01/02/21 History Gabapentin [Gabapentin 100mg Cap] 600 mg PO BID 01/02/21 01/02/21 History LORazepam [Lorazepam 1mg Tablet] 1 mg PO BIDP PRN 01/02/21 01/03/21 History Linaclotide [Linzess] 145 mcg PO DAILY 01/02/21 01/02/21 History Loratadine [Allergy] 10 mg PO DAILY 01/02/21 01/02/21 History Meclizine HCl 25 mg PO BIDP PRN 01/02/21 01/03/21 History Mirabegron [Myrbetriq] 50 mg PO DAILY 01/02/21 01/02/21 History Montelukast Sodium 10 mg PO DAILY 01/02/21 01/02/21 History levETIRAcetam [Levetiracetam] 500 mg PO DIRECTED 01/02/21 01/03/21 History Alendronate Sodium [Fosamax 70mg 70 mg PO WEEKLY 01/03/21 01/03/21 History Tablet] Docusate Sodium 250 mg PO BIDP PRN
[2021-01-03 09:17] LABS: Troponin I 0.37 ng/ml (0.00-0.034)
--- NOTE | 2021-01-03 16:25 | PC.NURSE ---
Pt has been pleasantly confused this shift. Olivia cath remains patent and is draining clear, dark yellow urine per gravity. Lung sounds CTA. Daughters have taken turns and have remained at bedside. Seizure pads remain in place, no signs of any seizure-like activity thus far this shift. No other acute changes or concerns. Will continue to monitor.
[2021-01-03 17:03] LABS: POC Glucose,Bedside 101 (70-110)
[2021-01-04] VITALS: BP 110/67; PULSE 65; PULSE 80; RESP 18; TEMP 36.6; O2SAT 96
[2021-01-04 04:00] VITALS: BP 150/77; PULSE 70; PULSE 71; RESP 18; TEMP 36.6; O2SAT 96
[2021-01-04 05:00] VITALS: BMI 27.5
[2021-01-04 05:52] LABS: POC Glucose,Bedside 118 (70-110)
[2021-01-04 06:00] VITALS: BP 150/77; PULSE 71; RESP 18; TEMP 36.7; O2SAT 96
[2021-01-04 07:37] LABS: Basophils # 0.1 K/mm3 (0-0.2); Basophils % 1.3 % (0.1-2.0); Eosinophils # 0.4 K/mm3 (0.0-0.4); Eosinophils % 5.2 % (0.1-12.0); Hematocrit 40.1 % (37.0-47.0); Hemoglobin 13.2 g/dL (12.2-16.2); Lymphocytes # 2.5 K/mm3 (0.7-4.5); Lymphocytes % 33.4 % (10-50); Mean Corpuscular Volume 97.1 fl (81-99); Mean Platelet Volume 8.8 fl (7.4-10.4); Monocytes # 0.6 K/mm3 (0.1-1.0); Monocytes % 8.6 % (1.7-9.3); Neutrophils # 3.8 K/mm3 (1.8-7.8); Neutrophils % 51.4 % (37.0-80.0); Platelet Count 199 K/mm3 (142-424); Red Blood Count 4.13 M/mm3 (4.20-5.40); Red Cell Distribution Width 13.1 % (11.5-17.5); White Blood Count 7.4 K/mm3 (4.8-10.8)
[2021-01-04 07:44] VITALS: BP 155/79; PULSE 72; RESP 20; TEMP 36.7; O2SAT 95
[2021-01-04 07:53] LABS: Alanine Aminotransferase 25 U/L (12-78); Albumin Level 3.7 g/dl (3.5-5.0); Albumin/Globulin Ratio 1.3 (1.1-1.8); Alkaline Phosphatase 70 U/L (38-126); Anion Gap 10.3 mEq/L (5-15); Aspartate Amino Transferase 35 U/L (14-36); Bilirubin,Total 0.7 mg/dl (0.2-1.3); Blood Urea Nitrogen 17 mg/dl (7-17); Calcium 8.9 mg/dl (8.4-10.2); Carbon Dioxide 26 mmol/L (22.0-30.0); Chloride 109 mmol/L (98-107); Creatine Kinase 377 U/L (30-135); Creatinine Clearance Estimated 51 mL/min (50-200); Estimated Glomerular Filt Rate 60 ml/min (>60); GFR (African American) 73 ML/MIN (>60); Globulin 2.9 g/dL (1.3-3.2); Glucose 114 mg/dl (74-100); Potassium 4.3 mmoL/L (3.5-5.1); Sodium 141 mmol/L (136-145); Total Protein,Serum 6.6 g/dl (6.3-8.2)
[2021-01-04 08:00] VITALS: PULSE 70; O2SAT 95
[2021-01-04 08:05] LABS: CKMB Relative Index 0.9 U/L (0-4.0); Creatine Kinase MB 3.5 ng/ml (0.0-2.03); Troponin I 0.09 ng/ml (0.00-0.034)
[2021-01-04 08:24] LABS: Thyroid Stimulating Hormone 4.82 uIU/mL (0.465-4.68)
--- NOTE | 2021-01-04 09:02 | HMH.ACPN2 ---
Internal Medicine - PN: Subj *Date: 01/04/21 *Time: 09:02 Interval history: She looks very good this morning. She is quite alert. Her daughter is satisfied with her progress. We discussed her past history of seizures. We discussed the evidence of urinary tract infection. I checked her TSH this morning. There is no history of thyroid disease but her TSH is slightly elevated. I will treat with levothyroxine. The family would like for her to be discharged today. Exam Vital signs and Labs for Last 24 Hours: Temp Pulse Resp BP Pulse Ox 98.0 F 72 20 155/79 H 95 01/04/21 07:44 01/04/21 07:44 01/04/21 07:44 01/04/21 07:44 01/04/21 07:44 Laboratory Results - last 24 hr 01/03/21 06:09: Troponin I 0.37 H 01/03/21 16:55: POC Glucose 101 01/04/21 05:37: POC Glucose 118 H 01/04/21 07:27: WBC 7.4 D, RBC 4.13 L, Hgb 13.2, Hct 40.1, MCV 97.1, MCH 32.0 H, MCHC 33.0, RDW 13.1, Plt Count 199, MPV 8.8, Neut % (Auto) 51.4, Lymph % (Auto) 33.4, [place] % (Auto) 8.6, Eos % (Auto) 5.2, Baso % (Auto) 1.3, Neut # (Auto) 3.8, Lymph # (Auto) 2.5, [place] # (Auto) 0.6, Eos # (Auto) 0.4, Baso # (Auto) 0.1 01/04/21 07:27: Sodium 141, Potassium 4.3, Chloride 109 H, Carbon Dioxide 26, Anion Gap 10.3, BUN 17 D, Creatinine 0.90, Estimated Creat Clear 51, Estimated GFR 60, Est GFR ( Amer) 73, Glucose 114 H, Calcium 8.9, Total Bilirubin 0.7, AST 35, ALT 25 D, Alkaline Phosphatase 70, Total Creatine Kinase 377 H D, CK-MB (CK-2) 3.5 H, CK-MB (CK-2) Rel Index 0.9, Troponin I 0.09 H, Total Protein 6.6, Albumin 3.7, Globulin 2.9, Albumin/Globulin Ratio 1.3, TSH 4.82 H I & O for Last 24 hours: Intake & Output 01/01/21 01/02/21 01/03/21 01/04/21 11:59 11:59 11:59 11:59 Intake Total 50 / 50 1200 / 1200 Output Total 375 / 375 650 / 650 Balance -325 / -325 550 / 550 Weight 158 lb 11.725 oz 165 lb - Constitutional no acute distress - *Routine HEENT Exam Head: Present: normocephalic Eye: Present: PERRL ENT: Present: mucous membranes moist - *Routine Respiratory Exam Present: rales (A few bibasilar fibrotic rales are present. Otherwise good air movement.) - *Routine Cardiovascular Exam Present: RRR, S4 - *Routine Abdominal Exam Present: soft, obese. Absent: tenderness - *Routine Extremities Exam Absent: edema - *Routine Neurological Exam Present: alert Assessment and Plan (1) Seizure Status: Acute Category: Medical Code(s): R56.9 - Unspecified convulsions (2) Altered mental status Status: Acute Category: Medical Code(s): R41.82 - Altered mental status, unspecified (3) Elevated troponin Status: Acute Category: Medical Code(s): R77.8 - Other specified abnormalities of plasma proteins (4) UTI (urinary tract infection) Status: Acute Qualifiers: Urinary tract infection type: acute cystitis Hematuria presence: with hematuria Qualified Code(s): N30.01 - Acute cystitis with hematuria Category: Medical Code(s): N39.0 - Urinary tract infection, site not specified (5) Hypertension Status: Chronic Category: Medical Code(s): I10 - Essential (primary) hypertension (6) Hypothyroidism (acquired) Status: Acute Category: Medical Code(s): E03.9 - Hypothyroidism, unspecified - Assessment and plan all Dx Assessment and Plan for all problems:: Will start levothyroxine 25 mcg daily. I will follow her up this afternoon and possibly discharge her today.
[2021-01-04 12:00] VITALS: PULSE 80
--- NOTE | 2021-01-08 16:18 | HMH.DCSUM ---
General - General Admission date:: 01/02/21 Discharge date: 01/04/21 HPI HPI: Ms. Carrero is an 80-year-old female with a history of hypertension, chronic back pain, seizure disorder, anxiety depression, and GERD who has had multiple falls in the last few weeks. She was seen in the office of [facility] on 12/30/2020 and had a urinalysis with urine culture. It was felt she may have a urinary tract infection. Her daughter states she began having a lot of confusion and when they went to her home they found her in the floor having fallen yesterday. They're unsure how long she laid in the floor. She was very confused and didn't even recognize her daughter. She was transported to the emergency room for evaluation. Her CBC was unremarkable. Her troponins were elevated and are trending upward. Her lactic acid was elevated. Her urine showed a possible UTI. She was admitted and started on IV antibiotics. Her daughter states when she got to the floor last night, she had a seizure around 8 PM. She has not had a seizure since 2012. She was given Ativan 1 mg and continued to have seizure-like activity, therefore she was given an additional 2 mg. She was also given 1 g of Keppra IV. Her daughter states since this time she has been asleep and does not respond at all. Hospital Course Hospital Course: The patient's troponin was trending up, therefore this was rechecked as was her Keppra level. Her troponin did decrease. She was continued on IV antibiotics and her urine culture was pending. By 05/07/2021, she was much more awake and alert. Her TSH was slightly elevated, therefore she was started on levothyroxine. Her family wanted her to be discharged home. She was stable to be discharged on antibiotics for her UTI. She will follow up with Dr. Campos in the office. Of note, her urine showed no growth at 48 hours. Objective Vital signs: Temp Pulse Resp BP Pulse Ox 98.0 F 80 20 155/79 H 95 01/04/21 07:44 01/04/21 12:00 01/04/21 07:44 01/04/21 07:44 01/04/21 08:00 Narrative: - Constitutional Comments: Not responding this morning, snoring loudly - *Routine HEENT Exam Head: Present: normocephalic Eye: Present: EOMI, PERRL ENT: Present: mucous membranes dry - *Routine Neck Exam Present: supple. Absent: lymphadenopathy - *Routine Respiratory Exam Present: CTA bilaterally - *Routine Cardiovascular Exam Present: RRR - *Routine Abdominal Exam Present: soft, normoactive bowel sounds. Absent: tenderness - *Routine Rectal Exam Rectal:: deferred - *Routine Genitalia Exam Genitalia:: deferred - *Routine Extremities Exam Present: edema. Absent: cyanosis, clubbing - *Routine Skin Exam Present: warm. Absent: rash - *Routine Neurological Exam Present: altered mental status DS: Diagnosis - Discharge Diagnosis (1) Seizure Status: Acute (2) Altered mental status Status: Acute (3) Elevated troponin Status: Acute (4) UTI (urinary tract infection) Status: Acute (5) Hypertension Status: Chronic (6) Hypothyroidism (acquired) Status: Acute Discharge Plan - Patient Discharge Instructions ACTIVITY: Limited activity DIET: advance to your usual diet Patient Instructions: Urinary Tract Infection, Delirium, DI for Seizure (Not Epilepsy/Seizure Disorder) - Follow up Plan Follow up with: Triston Campos MD [Primary Care Provider] - (Call office for appt this week.) Disposition: Home, Self-Care Condition at discharge:: Improved Home Medications: Home Medications Medication Instructions Recorded Confirmed Type Aspirin [Aspirin 81mg chewable 81 mg PO DAILY 01/02/21 01/02/21 History tab] Celecoxib 100 mg PO DAILY 01/02/21 01/02/21 History Duloxetine HCl 60 mg PO DAILY 01/02/21 01/02/21 History Esomeprazole Magnesium 40 mg PO DAILY 01/02/21 01/02/21 History Gabapentin [Gabapentin 100mg Cap] 600 mg PO BID 01/02/21 07
[2021-01-09 10:25] LABS: Levetiracetam (Keppra) 54.8 ug/mL (10.0-40.0)
== END 2021-01-04 04:10 | disposition home or self-care (01) | DRG 690 ==
LOC: ER 19:23 → 2ND 20:39
PROVIDERS: Emergency Medicine; Family Medicine; Physician Assistant; Admitting Provider Family Medicine; Emergency Provider Student in an Organized Health Care Education/Training Program; PCP Family Medicine; Visit Provider Family Medicine
DX: N30.01 Acute cystitis with hematuria (principal); G40.909 Epilepsy, unspecified, not intractable, without status epilepticus; I10 Essential (primary) hypertension; M54.9 Dorsalgia, unspecified; F41.9 Anxiety disorder, unspecified; F32.9 Major depressive disorder, single episode, unspecified; K21.9 Gastro-esophageal reflux disease without esophagitis; W19.XXXA Unspecified fall, initial encounter; R77.8 Other specified abnormalities of plasma proteins; Z88.5 Allergy status to narcotic agent
CPT/HCPCS: 36415; 70450; 70496; 70498; 71045; 80048; 80053; 80177; 80305; 81001; 82550; 82553; 82962; 83605; 84443; 84484; 85025; 87086; 93005; 96365; 99284; 99291; J1953; Q9967; U0003

== ENCOUNTER → 2021-01-16 11:44 | Outpatient (CLI) | payer MEDICARE, MEDICAID, SELFPAY ==
[2021-01-16 12:36] LABS: Alanine Aminotransferase 21 U/L (12-78); Albumin Level 4.2 g/dl (3.5-5.0); Albumin/Globulin Ratio 1.4 (1.1-1.8); Alkaline Phosphatase 121 U/L (38-126); Anion Gap 11.8 mEq/L (5-15); Aspartate Amino Transferase 25 U/L (14-36); Bilirubin,Total 0.4 mg/dl (0.2-1.3); Blood Urea Nitrogen 19 mg/dl (7-17); Calcium 9.7 mg/dl (8.4-10.2); Carbon Dioxide 31 mmol/L (22.0-30.0); Chloride 105 mmol/L (98-107); Estimated Glomerular Filt Rate 53 ml/min (>60); GFR (African American) 64 ML/MIN (>60); Globulin 2.9 g/dL (1.3-3.2); Glucose 89 mg/dl (74-100); Potassium 4.8 mmoL/L (3.5-5.1); Sodium 143 mmol/L (136-145); Total Protein,Serum 7.1 g/dl (6.3-8.2)
[2021-01-16 13:34] LABS: Vitamin B12 843 pg/mL (239-931)
== END ==
PROVIDERS: Visit Provider Specialist
DX: E53.8 Deficiency of other specified B group vitamins (principal); R29.2 Abnormal reflex; R56.9 Unspecified convulsions; R79.89 Other specified abnormal findings of blood chemistry
CPT/HCPCS: 36415; 80053; 80177; 82607

== ENCOUNTER → 2021-01-20 09:48 | Outpatient (CLI) | payer MEDICARE, MEDICAID, SELFPAY | PROVIDERS: PCP Family Medicine; Visit Provider Specialist | DX: R56.9 Unspecified convulsions (principal); G93.40 Encephalopathy, unspecified; Z72.820 Sleep deprivation | CPT/HCPCS: 95816; 95819 ==

== ENCOUNTER → 2021-01-21 09:47 | Outpatient (CLI) | payer MEDICARE, MEDICAID, SELFPAY ==
--- NOTE | 2021-01-21 09:47 | MR_ITS ---
PROCEDURE: MR HEAD/BRAIN WO CON CLINICAL INDICATION: seizure COMPARISON: No exams were available for comparison TECHNIQUE: Multiplanar, multisequence MRI brain performed without contrast. FINDINGS: No restricted diffusion is present to suggest an acute infarct. Focal diffusion hyperintensity is noted in the left parietal white matter, without corresponding restricted diffusion on the ADC map. This most likely represents T2 shine through. Old infarct should be considered. There is no space-occupying or enhancing mass lesion and no abnormal fluid collection.There is no evidence of intra or extra-axial hemorrhage. Ventricles: The Ventricles are within noraml limits for size, configuration, and symmetry. Volume: Brain parenchymal volume is appropriate for age. Few scattered periventricular and subcortical white matter T2 and FLAIR hyperintensities are noted, may represent minor microvascular changes. The flow related signal loss in the major intracranial vessels are preserved. Coronal FLAIR and inversion recovery images demonstrate no evidence of abnormal signal intensity in the medial temporal bones. No is asymmetric volume loss is noted. Osseous: Osseous structures are unremarkable. Mild hyperostosis frontalis interna Sinuses: Paranasal sinuses are unremarkable. Bilateral lens replacements are noted Mastoids: Unremarkable. IMPRESSION: 1. No evidence of acute intracranial process. 2. Minor chronic microvascular ischemic disease. 3. Unremarkable medial temporal lobes. Dictated by: Philomena Recinos 01/21/2021 11:56 Philomena Recinos in OV 01/21/2021 11:56
== END ==
PROVIDERS: PCP Family Medicine; Visit Provider Specialist
DX: G93.40 Encephalopathy, unspecified (principal); R56.9 Unspecified convulsions
CPT/HCPCS: 70551

== ENCOUNTER → 2021-02-03 11:01 | Outpatient (CLI) | payer MEDICARE, MEDICAID, SELFPAY ==
--- NOTE | 2021-02-03 11:02 | MR_ITS ---
PROCEDURE: MR CERVICAL SPINE WO CON CLINICAL INDICATION: Gait disturbances, ataxia, frequent falls Prior hx neck surgery x6yrs ago. Falling frequently. Intermittent lt arm tingling. Prior x-ray 05/31/20. Prior MR 07/15/15. COMPARISON: MR PEDIATRIC PATHOLOGIST/O MRI-C-SPINE W/O from 07/15/2015 CR XR CERVICAL SPINE 5V from 05/31/[address] ANGIO NECK from 01/03/2021 TECHNIQUE: Standard multiplanar multiecho sequences are performed without contrast. 3-D MIP and myelographic images are also rendered and reviewed FINDINGS: There is normal alignment. The craniocervical junction has an unremarkable appearance. There is straightening of the cervical lordosis.. There is mild diffuse prominence of the posterior longitudinal ligament in the upper cervical spine. C2-C3: There is degenerative disc disease with facet and uncovertebral hypertrophy with canal stenosis and bilateral lateral recess and foraminal narrowing which is greater on the left. Minimal endplate ridging noted. Findings are overall not significantly changed. C3-C4: Degenerative disc disease with prominent posterior longitudinal ligament with facet and uncovertebral hypertrophy along with endplate hypertrophic change with severe bilateral foraminal narrowing which is not significantly changed. There has been prior laminectomies at C3-C4 and C5 within prove mint in the canal stenosis at these levels. C4-C5: Degenerative disc disease with prominent posterior longitudinal ligament and posterior ridging of the vertebra with severe bilateral foraminal narrowing left greater than right with disc osteophyte complexes at the uncovertebral region the.. Interval laminectomy at this site with improvement in the canal stenosis. C5-C6: Degenerative disc disease with bulging disc and endplate hypertrophic change along with facet and uncovertebral hypertrophy with severe bilateral foraminal narrowing and bilateral lateral recess narrowing left greater than right. Resolution of canal stenosis secondary to interval laminectomy. C6-C7: Degenerative disc disease with bulging disc and endplate ridging and uncovertebral hypertrophy with severe bilateral foraminal narrowing right greater than left. The canal measures 8 mm at this level. C7-T1: Degenerative disc disease. Small left paracentral disc protrusion has developed since the previous exam causing left lateral recess and foraminal narrowing. Increased T2 signal involves the spinal cord at the C4 and C5 level centrally and may be due to underlying gliotic changes from the prior severe canal stenosis which has since then been resolved secondary to posterior laminectomies. IMPRESSION: Abnormal MRI of the cervical spine with multilevel degenerative disc disease with bulging disc and posterior endplate osteophytes/ridging as well as prominence of the posterior longitudinal ligament. There is also facet and uncovertebral hypertrophy with resultant severe lateral recess and foraminal narrowing. Canal stenosis has improved at the C3-C4 and C5 region secondary to the interval laminectomies. There is persistent canal stenosis at C6-C7. Small left paracentral disc protrusion at C7-T1. Increased T2 signal within the central aspect of the cord at C4 and C5 which may be related underlying gliotic changes. Please see above for detailed description at each level. Dictated by: Timothy Oliver MD 02/04/2021 09:54 Timothy Oliver MD in [place] 02/04/2021 09:54
== END ==
PROVIDERS: PCP Family Medicine; Visit Provider Specialist
DX: M54.2 Cervicalgia; R27.0 Ataxia, unspecified
CPT/HCPCS: 72141; 76376

== ENCOUNTER → 2021-03-05 13:38 | Outpatient (CLI) | payer MEDICARE, MEDICAID, SELFPAY ==
--- NOTE | 2021-03-05 13:42 | MR_ITS ---
PROCEDURE: MR LUMBAR SPINE WO CON CLINICAL INDICATION: LUMBAGO WITH SCIATICA COMPARISON: CR XR LUMBAR SPINE MIN 4V from 03/09/2019 MR MR CERVICAL SPINE WO CON from 02/03/2021 TECHNIQUE: Standard multiplanar multiecho sequences are performed without contrast. 3-D MIP and myelographic images are also rendered and reviewed FINDINGS: The spinal cord ends at the L2 level. Endplate osteophytes are present from L1-S1 anteriorly and laterally. There is multilevel degenerative disc disease with bulging disc and canal stenosis as outlined below. T10-T11: Facet and ligamentum hypertrophy with bilateral lateral recess narrowing and canal stenosis T11-T12: Degenerative disc disease with mild bulging disc with facet and ligamentum hypertrophy and canal stenosis T12-L1: Degenerative disc disease with bulging disc along with facet and ligamentum hypertrophy with canal stenosis. There is wedging of the anterior aspect of L1 with loss of height anteriorly of approximately 45 percent which appears chronic. L1-L2: Degenerative disc disease with bulging disc with facet and ligamentum hypertrophy and canal stenosis with mild impingement upon the anterior aspect of the cord L2-L3: Degenerative disc disease with bulging disc along facet and ligamentum hypertrophy with canal stenosis bilateral lateral recess narrowing and bilateral foraminal narrowing. The bulging disc is slightly eccentric toward the right with greater foraminal narrowing on the right compared to the left. L3-L4: Degenerative disc disease with bulging disc with endplate osteophytes and facet and ligamentum hypertrophy with severe right-sided foraminal narrowing and mild left foraminal narrowing. L4-5: Degenerative disc disease with facet and ligamentum hypertrophy with bilateral lateral recess narrowing greater on the left and with bilateral foraminal narrowing which is severe. Posterior endplate osteophyte is present which somewhat hooks inferiorly L5-S1: Degenerative disc disease with bulging disc with endplate osteophytes and facet and ligamentum hypertrophy with severe bilateral foraminal narrowing right greater than left No extruded herniated disc. No acute fracture. IMPRESSION: Multilevel lumbar spondylosis with bulging discs and endplate osteophytes along with facet and ligamentum hypertrophy resulting in canal stenosis as well as lateral recess and foraminal narrowing. Please see above for detailed description at each level. No extruded herniated disc or acute fracture. There is an old compression fracture of L1 Dictated by: Timothy Oliver MD 03/06/2021 09:29 Timothy Oliver MD in [place] 03/06/2021 09:29
== END ==
PROVIDERS: PCP Family Medicine; Visit Provider Family Medicine
DX: M54.42 Lumbago with sciatica, left side (principal); M54.41 Lumbago with sciatica, right side; M48.061 Spinal stenosis, lumbar region without neurogenic claudication
CPT/HCPCS: 72148; 76376

== ENCOUNTER → 2021-03-21 12:09 | Outpatient (POV) | payer MEDICARE, MEDICAID, SELFPAY ==
[2021-03-21 12:17] VITALS: BP 175/80; PULSE 100; RESP 20; TEMP 36.4; O2SAT 94; BMI 28.3
--- NOTE | 2021-03-21 12:58 | HMH.PMCON ---
Assessment and Plan (1) Degenerative joint disease (DJD) of lumbar spine Status: Chronic Category: Medical Code(s): M47.816 - Spondylosis without myelopathy or radiculopathy, lumbar region (2) Lumbosacral radiculopathy due to degenerative joint disease of spine Status: Chronic Category: Medical Code(s): M47.27 - Other spondylosis with radiculopathy, lumbosacral region (3) Spinal stenosis, lumbar region with neurogenic claudication Status: Chronic Category: Medical Code(s): M48.062 - Spinal stenosis, lumbar region with neurogenic claudication - Assessment and plan all Dx Assessment and Plan for all problems:: We will seek approval and plan on lumbar epidural steroid injection under fluoroscopy. We will also do an epidurogram to assess levels of stenosis and candidacy for mill invasive lumbar decompression. HPI - Data of Consult Patient: new to practice Consult date: 03/21/21 Requesting Physician: Franklyn Gonzalez MD Primary Care Provider: Triston Campos MD - Consult Narrative Reason for consult: Low back pain and leg pain History of present illness: Ms. Carrero is a 80 year old female who presents to us with increasing low back pain and leg pain. She has worse pain while standing and walking. MRI does show degenerative disc disease with bulging disc at L2-L3, L3-4 and L4-L5 she also has significant ligamentum flavum hypertrophy at L3-L4 and L4-L5 and L5-S1. She is currently on oxycodone 10 mg twice a day given to her by Dr. Campos. I do believe she would benefit from a lumbar epidural steroid injection. We will seek approval and plan on lumbar epidural steroid injection with epidurogram to see if this gives her relief and also assess levels of stenosis and candidacy for minimally invasive lumbar decompression. CC: Franklyn Gonzalez MD [facility] History I have reviewed the patient's past medical history: Yes Medical History: Reports:: Anxiety, Gastroesophageal Reflux Disease(GERD), Hypertension, Osteoporosis, Seizures Denies:: Cancer, Diabetes Mellitus Type 1, Diabetes Mellitus Type 2, MRSA *Have you ever received a pneumonia vaccine?: Yes *Have you received a flu vaccine this season?: Yes Other Medical History: Reports: Arthritis, Cataracts, Hypothyroidism, Osteoporosis, Thyroid Disease, Other Laterality Cases: Bilateral: Cataract Other Surgeries: Yes: Other (cervical spine) Amputation: No Fractures: No - *Social History Smoking Status: Former smoker Tobacco Type: cigarettes Alcohol Intake: never Substance Use Type: denies use *Occupational Status:: retired Housing: house Household Members: other *Travel in the last 8 weeks: None - Psychiatric History Pschychiatric History:: Reports:: Anxiety Family Hx:: Cancer, Heart Attack Review of Systems - Review of Systems Review of systems:: pertinent systems reviewed and negative unless documented below - *Musculoskeletal Reports back pain, Reports limited joint movement, Reports muscle weakness, Reports radiating pain into limb, Reports stiffness Meds Home Medications Medication Instructions Recorded Confirmed Type Celecoxib 100 mg PO DAILY 01/02/21 03/21/21 History Duloxetine HCl 60 mg PO DAILY 01/02/21 03/21/21 History Esomeprazole Magnesium 40 mg PO DAILY 01/02/21 03/21/21 History Linaclotide [Linzess] 145 mcg PO DAILY 01/02/21 03/21/21 History Meclizine HCl 25 mg PO BIDP PRN 01/02/21 03/21/21 History Mirabegron [Myrbetriq] 50 mg PO DAILY 01/02/21 03/21/21 History Montelukast Sodium 10 mg PO DAILY 01/02/21 03/21/21 History Alendronate Sodium [Fosamax 70mg 70 mg PO WEEKLY 01/03/21 03/21/21 History Tablet] Cholecalciferol (Vitamin D3) 5,000 unit PO DAILY 01/03/21 03/21/21 History [Vitamin D3] Cyanocobalamin (Vitamin B-12) 500 mcg SL DAILY 01/03/21 02/11/21 History [B-12] Docusate Sodium 250 mg PO BIDP PRN 01/03/21 03/21/21 History Fluticasone Propionate 1 spray NS DAILY 01/03/21 03/21/21 History Furosemide [Furosemide 20mg Tab*] 20 mg PO
== END ==
PROVIDERS: PCP Family Medicine; Visit Provider Anesthesiology
DX: M47.816 Spondylosis without myelopathy or radiculopathy, lumbar region (principal); M48.062 Spinal stenosis, lumbar region with neurogenic claudication; M47.27 Other spondylosis with radiculopathy, lumbosacral region
CPT/HCPCS: 99202; G0463

== ENCOUNTER 2021-03-28 10:42 | Day surgery (SDC) | payer MEDICARE, MEDICAID, SELFPAY ==
[2021-03-28 10:47] VITALS: BP 196/88; PULSE 104; RESP 18; TEMP 37.3; O2SAT 95; BMI 28.3
--- NOTE | 2021-03-28 11:04 | HMH.PMPROC ---
- Procedure Date: 03/28/21 Time: 11:04 Anesthesiologist:: Franklyn Gonzalez MD Complications:: None Pre-procedure Diagnosis:: Degenerative disc disease of lumbar spine with lumbar spinal stenosis and neurogenic claudication symptoms Post-procedure Diagnosis:: Same Indications for Procedure:: Patient is a pleasant 80-year-old white female who we are treating for low back pain with lumbar spinal stenosis and neurogenic claudication symptoms. We will do a lumbar epidural steroid injection with epidurogram today to assess levels of stenosis and candidacy for minimally invasive lumbar decompression. Procedure Details:: Informed consent was obtained and the risk and benefits of the procedure was explained to the patient. The patient was taken to the procedure room. The patient was placed prone on the procedure table. The patient was prepped and draped in sterile fashion. C-arm fluoroscopy was used to view the lumbar spine. Skin and subcutaneous tissues were anesthetized using lidocaine. I placed an 18-gauge epidural needle and advanced into the L4-L5 interspace using fluoroscopic guidance and [id number] to air. After confirmation of needle placement in the epidural space with dye I injected 2 mL of lidocaine 1.5% with Depo-Medrol 80 mg. Patient tolerated the procedure well with no complications. Plan and Disposition:: Based on epidurogram she does have stenosis at L3-L4 and L4-L5. She does have significant scoliosis. Based on her pain patterns she may be a better candidate for intrathecal therapy. We will discuss this with her at her next follow-up.
[2021-03-28 11:09] VITALS: BP 200/95; PULSE 106; RESP 18; O2SAT 97
[2021-03-28 11:12] VITALS: PULSE 101; RESP 18; O2SAT 97
[2021-03-28 11:24] VITALS: BP 191/90; PULSE 104; RESP 20; O2SAT 94
== END 2021-03-28 11:25 | disposition home or self-care (01) ==
LOC: SC.PAINP 10:45
PROVIDERS: PCP Family Medicine; Visit Provider Anesthesiology
DX: M48.062 Spinal stenosis, lumbar region with neurogenic claudication (principal); M51.36 Other intervertebral disc degeneration, lumbar region; I10 Essential (primary) hypertension; K21.9 Gastro-esophageal reflux disease without esophagitis; M19.90 Unspecified osteoarthritis, unspecified site; M81.0 Age-related osteoporosis without current pathological fracture; F41.9 Anxiety disorder, unspecified; E03.9 Hypothyroidism, unspecified; R56.9 Unspecified convulsions; Z87.891 Personal history of nicotine dependence; Z86.69 Personal history of other diseases of the nervous system and sense organs; Z88.6 Allergy status to analgesic agent
CPT/HCPCS: 62323; J1040; Q9966

== ENCOUNTER → 2021-04-17 11:14 | Outpatient (POV) | payer MEDICARE, MEDICAID, SELFPAY ==
[2021-04-17 11:33] VITALS: BP 178/75; PULSE 94; RESP 18; O2SAT 95; BMI 28.3
--- NOTE | 2021-04-17 11:35 | HMH.PAINSOAP ---
[facility] Pain Management SOAP Note Subjective:: Patient is an 80-year-old white female who presents today for follow-up after #1 lumbar epidural steroid injection L4-L5 with epidurogram. Patient reports that she got excellent relief with the injection to her lower extremity pain. She says she is continuing to have low back pain, however. This is her first injection. She does rate her pain an 8 out of 10 today. The pain has began to return in her low back. She is continuing with significant relief to her bilateral lower extremities, however. Per epidurogram, Dr. Gonzalez did feel the patient would be a better candidate for intrathecal therapy. She does have stenosis at L3-L4 L4-L5 area, but also has significant scoliosis The patient feels that she would like to proceed with a repeat injection before proceeding with implanted devices. She did get excellent relief up to 80% with her initial injection. She is using a cane for ambulation today. She is accompanied by her daughter today. Review of Systems General: No recent weight changes, no fever, no sleep disturbances Respiratory: No cough, no shortness of air, no recurring pulmonary infections Cardiovascular/peripheral vascular: No chest pain, no palpitations, no edema, no shortness of breath Gastrointestinal: No new onset incontinence, normal bowel movements reported Genitourinary: No new onset incontinence Musculoskeletal: Low back pain with intermittent pain into bilateral lower extremities and feet Psychiatric: [Normal mood/affect] Neurological: Intermittent weakness in lower extremities uses cane for ambulation Objective:: Physical exam General: Alert and oriented x3, no acute distress, pleasant and cooperative Lungs: Respirations even and unlabored, symmetrical chest expansion Eyes: PERRL Musculoskeletal: Flexion and extension of lumbar [spine] somewhat guarded secondary to pain, [antalgic gait noted] Neurological: Speech clear, no gross sensory deficit Assessment:: Degenerative disc disease lumbar spine with lumbar radiculopathy symptoms, spinal stenosis Plan:: Dr. Gonzalez does feel the patient would be an appropriate intrathecal therapy candidate. Patient has had 1 epidural steroid injection and would like to proceed with a repeat injection before deciding upon intrathecal therapy. She was given educational information today and briefly discussed the device. We will schedule the patient for lumbar epidural steroid injection at L4-L5, #2 injection. She is not on any anticoagulation therapy. She got up to 80% relief with her initial injection to her bilateral lower extremities. We'll follow-up with her after the injection for reevaluation symptoms. Possible side effects of corticosteroids have been discussed with the patient. Risks and benefits of the procedure have been explained to the patient. Patient would like to proceed with the procedure. Patient has been instructed to contact the clinic with any concerns before the next appointment. Dr. Gonzalez has reviewed this note and agrees with this plan of care. This note was dictated using voice recognition software and make contain errors or omissions. [facility] History I have reviewed the patient's past medical history: Yes Medical History: Reports:: Anxiety, Gastroesophageal Reflux Disease(GERD), Hypertension, Osteoporosis, Seizures Denies:: Cancer, Diabetes Mellitus Type 1, Diabetes Mellitus Type 2, MRSA *Have you ever received a pneumonia vaccine?: Yes *Have you received a flu vaccine this season?: Yes Other Medical History: Reports: Arthritis, Cataracts, Hypothyroidism, Osteoporosis, Thyroid Disease, Other. Denies: Blood Transfusion Reaction Other Surgeries: Yes: Other (cervical spine) Amputation: No Fractures: No - *Social History Smoking Status: Former smoker Tobacco Type: cigarettes Alcohol Intake: never Substance Use Type: denies use *Occupational Status:: unemployed Housing: house Household Members: other *
== END ==
PROVIDERS: Visit Provider Clinical Nurse Specialist Family Health
DX: M51.16 Intervertebral disc disorders with radiculopathy, lumbar region (principal); M48.00 Spinal stenosis, site unspecified
CPT/HCPCS: 99212; G0463

== ENCOUNTER 2021-04-25 13:02 | Day surgery (SDC) | payer MEDICARE, MEDICAID, SELFPAY ==
[2021-04-25 13:39] VITALS: PULSE 99; RESP 18; TEMP 36.3; O2SAT 97; BMI 28.3
--- NOTE | 2021-04-25 14:36 | P.PCN_ITS ---
- Procedure Date: 04/25/21 Time: 14:36 Anesthesiologist:: Franklyn Gonzalez MD Complications:: None Pre-procedure Diagnosis:: Degenerative disc disease of lumbar spine with lumbar radiculopathy symptoms Post-procedure Diagnosis:: Same Indications for Procedure:: This patient is a pleasant 80-year-old white female who we are treating for low back pain with lumbar radiculopathy symptoms. She did very well after last lumbar epidural steroid injection. She still has some low back pain. Will do repeat lumbar epidural steroid injection under fluoroscopy today to see if this helps with her pain symptoms. Procedure Details:: Informed consent was obtained and the risk and benefits of the procedure was explained to the patient. The patient was taken to the procedure room. The patient was placed prone on the procedure table. The patient was prepped and draped in sterile fashion. C-arm fluoroscopy was used to view the lumbar spine. Skin and subcutaneous tissues were anesthetized using lidocaine. I placed an 18-gauge epidural needle and advanced into the L4-L5 interspace using fluoroscopic guidance and [id number] to air. After confirmation of n eedle placement in the epidural space with dye I injected 2 mL of lidocaine 1.5% with Depo-Medrol 80 mg. Patient tolerated the procedure well with no complications. Plan and Disposition:: We will follow-up with her in 2 weeks. Will reevaluate her symptoms at that time.
[2021-04-25 14:42] VITALS: BP 145/80; PULSE 76; RESP 20; O2SAT 94
[2021-04-25 14:45] VITALS: BP 145/89; PULSE 85; RESP 20; O2SAT 94
[2021-04-25 15:58] VITALS: BP 179/85; PULSE 101; RESP 18; TEMP 36.3; O2SAT 98
== END 2021-04-25 15:00 | disposition home or self-care (01) ==
LOC: SC.PAINP 13:03
PROVIDERS: PCP Family Medicine; Visit Provider Anesthesiology
DX: M51.16 Intervertebral disc disorders with radiculopathy, lumbar region (principal); I10 Essential (primary) hypertension; E03.9 Hypothyroidism, unspecified; Z88.6 Allergy status to analgesic agent
CPT/HCPCS: 62323; J1040; Q9966

== ENCOUNTER → 2021-05-15 11:20 | Outpatient (POV) | payer MEDICARE, MEDICAID, SELFPAY ==
[2021-05-15 11:35] VITALS: BP 219/80; PULSE 90; RESP 18; O2SAT 95; BMI 28.3
--- NOTE | 2021-05-15 11:37 | HMH.PAINSOAP ---
[facility] Pain Management SOAP Note Subjective:: Patient is an 80-year-old white female who presents today for follow-up after lumbar epidural steroid injection at L4-L5 area. The patient says that she got significant relief of her low back pain and bilateral lower extremity pain following the injection. She got up to 70 to 80% relief. Patient is having pain at this time to her low right low back area, right buttock, and right hip. Patient does report a history of bursitis and sacroiliitis and has had right bursa and right SI injections in the past and reports to have gotten between 80 to 90% relief with these injections. Patient's pain is worse when lying on her right side as well as with ambulation. She does use a cane for ambulation on the right side. She rates her pain a 6 out of 10 today to the area. She does continue with home stretching. She also uses anti-inflammatory cream as needed to the area as well. Review of Systems General: No recent weight changes, no fever, no sleep disturbances Respiratory: No cough, no shortness of air, no recurring pulmonary infections Cardiovascular/peripheral vascular: No chest pain, no palpitations, no edema, no shortness of breath Gastrointestinal: No new onset incontinence, normal bowel movements reported Genitourinary: No new onset incontinence Musculoskeletal: Right low back pain, right buttock pain, right groin pain Psychiatric: [Normal mood/affect] Neurological: [Denies weakness in extremities], [denies balance issues] Objective:: Physical exam General: Alert and oriented x3, no acute distress, pleasant and cooperative Lungs: Respirations even and unlabored, symmetrical chest expansion Eyes: PERRL Musculoskeletal: Flexion and extension of lumbar [spine] somewhat guarded secondary to pain, [antalgic gait noted], right compression test, right Candelaria's test, right distraction test, right Ryder's test tenderness to palpation to right trochanteric bursa Neurological: Speech clear, no gross sensory deficit Assessment:: Sacroiliitis right, trochanteric bursitis right Plan:: Patient got significant relief with her lumbar epidural steroid injection to her bilateral lower extremities and low back. She is having tenderness to her right SI joint as well as her right hip. The patient says that she has had right bursa and right SI injections in the past and has gotten significant relief with the injections. We will schedule her for right SI joint injection right trochanteric bursa injection. Patient will continue with her anti-inflammatory cream to apply topically to the area in between injective therapy. We will plan to see the patient back in the clinic after her injection for reevaluation of symptoms. The patient is not diabetic. Possible side effects of corticosteroids have been discussed with the patient. Risks and benefits of the procedure have been explained to the patient. Patient would like to proceed with the procedure. Patient has been instructed to contact the clinic with any concerns before the next appointment. Dr. Gonzalez has reviewed this note and agrees with this plan of care. This note was dictated using voice recognition software and make contain errors or omissions. [facility] History I have reviewed the patient's past medical history: Yes Medical History: Reports:: Anxiety, Coronary Artery Disease, Gastroesophageal Reflux Disease(GERD), Hyperlipidemia, Hypertension, Osteoporosis, Seizures Denies:: Cancer, Diabetes Mellitus Type 1, Diabetes Mellitus Type 2, MRSA *Have you ever received a pneumonia vaccine?: Yes *Have you received a flu vaccine this season?: Yes Other Medical History: Reports: Arthritis, Cataracts, Hypothyroidism, Osteoporosis, Thyroid Disease, Other. Denies: Blood Transfusion Reaction Other Surgeries: Yes: Other (cervical spine) Amputation: No Fractures: No - *Social History Smoking Status: Former smoker Tobacco Type: cigarettes Alcohol Intake: nev
== END ==
PROVIDERS: Visit Provider Clinical Nurse Specialist Family Health
DX: M46.1 Sacroiliitis, not elsewhere classified (principal); M51.16 Intervertebral disc disorders with radiculopathy, lumbar region; M70.61 Trochanteric bursitis, right hip
CPT/HCPCS: 99212; G0463

== ENCOUNTER 2021-06-13 15:31 | Day surgery (SDC) | payer MEDICARE, MEDICAID, SELFPAY ==
[2021-06-13 15:42] VITALS: BP 200/83; PULSE 81; RESP 20; TEMP 36.3; O2SAT 94; BMI 28.3
[2021-06-13 15:54] VITALS: BP 189/72; PULSE 84; RESP 18; O2SAT 96
[2021-06-13 15:55] VITALS: PULSE 84; RESP 18; O2SAT 95
--- NOTE | 2021-06-13 15:57 | P.PCN_ITS ---
- Procedure Date: 06/13/21 Time: 15:57 Anesthesiologist:: Franklyn Gonzalez MD Complications:: None Pre-procedure Diagnosis:: Sacroiliitis Post-procedure Diagnosis:: Same Indications for Procedure:: Patient is a pleasant 80-year-old white female who we are treating for right- sided hip pain. She is done well with previous lumbar epidural steroid injection with 70 to 80% relief in her pain symptoms. She is also done well with right SI joint injections in the past. She has increasing pain over the right hip. She is tender over the right SI joint. She is positive Ryder's test on the right side. She is positive Melina test on the right side. She has positive SI joint compression test on the right side. We will plan a right SI joint injection under fluoroscopy today to help with her pain symptoms. Procedure Details:: Right SI joint injection under fluoroscopy Informed consent was obtained and the risks and benefits of the procedure was going to the patient. Patient was taken to the procedure room. Patient was placed prone on the procedure table. The right hip was prepped using ChloraPrep. The skin and subcutaneous tissues were anesthetized using lidocaine. I placed a 22-gauge spinal needle into the inferior aspect of the right SI joint. Needle placement was confirmed with dye. After this we injected 5 mL bupivacaine 0.25% and Depo-Medrol 40 mg into the right SI joint. The patient tolerated the procedure well with no complication. Plan and Disposition:: We will follow-up with her in 2 weeks. Will reevaluate symptoms at that time.
[2021-06-16 16:10] VITALS: BP 205/72; PULSE 90; RESP 20; O2SAT 95
== END 2021-06-16 16:10 | disposition home or self-care (01) ==
LOC: SC.PAINP 15:32
PROVIDERS: PCP Family Medicine; Visit Provider Anesthesiology
DX: M46.1 Sacroiliitis, not elsewhere classified (principal); E07.9 Disorder of thyroid, unspecified; I25.10 Atherosclerotic heart disease of native coronary artery without angina pectoris; I10 Essential (primary) hypertension; K21.9 Gastro-esophageal reflux disease without esophagitis; F41.9 Anxiety disorder, unspecified; R56.9 Unspecified convulsions; Z86.69 Personal history of other diseases of the nervous system and sense organs; Z87.19 Personal history of other diseases of the digestive system; E78.5 Hyperlipidemia, unspecified
CPT/HCPCS: 27096; G0260; J1040; Q9966

== ENCOUNTER → 2021-06-30 14:59 | Outpatient (CLI) | payer MEDICARE, MEDICAID, SELFPAY ==
--- NOTE | 2021-06-30 14:59 | CT_ITS ---
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 All CT scans at the facility use one or more dose reduction, viz: automated exposure control, ma/kV adjustment per patient size (including targeted exams where dose is matched to indication, i.e. head), or iterative reconstruction technique. FINDINGS: No midline shift, mass effect, intracranial hemorrhage, hydrocephalus, or extra-axial fluid collection is evident. There is generalized atrophy with hypoattenuation of the periventricular white matter consistent with microangiopathic changes. The calvarium has an unremarkable appearance. No mastoid effusion. No sinus air-fluid level. IMPRESSION: No acute intracranial finding Dictated by: Timothy Oliver MD 06/30/2021 16:17 Timothy Oliver MD in [facility] 06/30/2021 16:17
[2021-06-30 15:24] LABS: Microscopic, Urine URINE MICROSCOPIC (MICROSCOPIC)
[2021-06-30 15:58] LABS: Basophils # 0.1 K/mm3 (0-0.2); Basophils % 1.2 % (0.1-2.0); Eosinophils # 0.4 K/mm3 (0.0-0.4); Eosinophils % 4.8 % (0.1-12.0); Hematocrit 46.1 % (37.0-47.0); Hemoglobin 14.6 g/dL (12.2-16.2); Lymphocytes # 1.8 K/mm3 (0.7-4.5); Lymphocytes % 21.3 % (10-50); Mean Corpuscular HGB Conc 31.6 g/dL (31.8-35.4); Mean Corpuscular Hemoglobin 33.4 pg (27.0-31.2); Mean Corpuscular Volume 105.7 fl (81-99); Mean Platelet Volume 9.1 fl (7.4-10.4); Monocytes # 0.5 K/mm3 (0.1-1.0); Monocytes % 5.3 % (1.7-9.3); Neutrophils # 5.7 K/mm3 (1.8-7.8); Neutrophils % 67.4 % (37.0-80.0); Platelet Count 237 K/mm3 (142-424); Red Blood Count 4.36 M/mm3 (4.20-5.40); Red Cell Distribution Width 12.7 % (11.5-17.5); White Blood Count 8.5 K/mm3 (4.8-10.8)
[2021-06-30 16:05] LABS: Appearance,Urine CLEAR (Clear); Bilirubin,Urine Negative (Negative); Blood, Urine Negative (Negative); Color,Urine YELLOW (Yellow); Glucose,Urine (UA) Negative (Negative); Ketones,Urine Negative (Negative); Leukocyte Esterase,Urine Negative (Negative); Nitrate,Urine Negative (Negative); PH,Urine 5.5 (5.0-8.5); Protein,Urine Negative (Negative); Specific Gravity, Urine >= 1.030 (1.005-1.030); Urobilinogen,Urine 0.2 EU/dl (0.2)
[2021-06-30 16:41] LABS: Alanine Aminotransferase 14 U/L (12-78); Albumin/Globulin Ratio 1.4 (1.1-1.8); Alkaline Phosphatase 90 U/L (38-126); Anion Gap 11.4 mEq/L (5-15); Aspartate Amino Transferase 17 U/L (14-36); Bilirubin,Total 0.4 mg/dl (0.2-1.3); Blood Urea Nitrogen 23 mg/dl (7-17); Calcium 9.7 mg/dl (8.4-10.2); Carbon Dioxide 29 mmol/L (22.0-30.0); Chloride 104 mmol/L (98-107); Estimated Glomerular Filt Rate 69 ml/min (>60); GFR (African American) 83 ML/MIN (>60); Globulin 2.8 g/dL (1.3-3.2); Glucose 94 mg/dl (74-100); Potassium 4.4 mmoL/L (3.5-5.1); Sodium 140 mmol/L (136-145); Total Protein,Serum 6.8 g/dl (6.3-8.2)
[2021-06-30 17:16] LABS: Thyroid Stimulating Hormone 1.38 uIU/mL (0.465-4.68)
[2021-06-30 17:38] LABS: Vitamin B12 > 1000 pg/mL (239-931)
[2021-06-30 18:20] LABS: Folate 9.57 ng/mL
[2021-08-22 10:45] LABS: Levetiracetam (Keppra) 38.1
== END ==
PROVIDERS: PCP Family Medicine; Visit Provider Nurse Practitioner Family
DX: G93.40 Encephalopathy, unspecified (principal); R41.3 Other amnesia; R56.9 Unspecified convulsions
CPT/HCPCS: 70450

== ENCOUNTER → 2021-06-30 15:23 | Outpatient (CLI) | payer MEDICARE, MEDICAID, SELFPAY | PROVIDERS: Visit Provider Nurse Practitioner Family | DX: R41.3 Other amnesia (principal); G93.40 Encephalopathy, unspecified; R56.9 Unspecified convulsions; Z51.81 Encounter for therapeutic drug level monitoring | CPT/HCPCS: 36415; 70450; 80053; 80177; 81001; 82607; 82746; 84443; 85025; 87086 ==

== ENCOUNTER → 2021-07-03 13:37 | Outpatient (POV) | payer MEDICARE, MEDICAID, SELFPAY ==
[2021-07-03 13:58] VITALS: BP 137/79; PULSE 85; RESP 18; O2SAT 96; BMI 28.3
--- NOTE | 2021-07-08 08:33 | HMH.PAINSOAP ---
[facility] Pain Management SOAP Note Subjective:: Patient is an 80-year-old white female who presents today for follow-up. She is following up from a right SI joint injection. She does report that she got significant relief following the injection but does say her pain has returned to bilateral SI joints. She is having pain in her low low back area bilaterally with radiation into bilateral buttock and hips. Today, she rates her pain a 6 out of 10. She would like to proceed with repeat injections to bilateral SI joints. She is in a wheelchair today. She is having difficulty with ambulation and mobility due to pain in her low back and bilateral buttock. She has tried and failed conservative therapies of home stretching and anti-inflammatories. Review of Systems General: No recent weight changes, no fever, no sleep disturbances Respiratory: No cough, no shortness of air, no recurring pulmonary infections Cardiovascular/peripheral vascular: No chest pain, no palpitations, no edema, no shortness of breath Gastrointestinal: No new onset incontinence, normal bowel movements reported Genitourinary: No new onset incontinence Musculoskeletal: Bilateral low back pain with radiation into bilateral buttock and hips Psychiatric: [Normal mood/affect] Neurological: [Denies weakness in extremities], [denies balance issues] Objective:: Physical exam General: Alert and oriented x3, no acute distress, pleasant and cooperative Lungs: Respirations even and unlabored, symmetrical chest expansion Eyes: PERRL Musculoskeletal: Flexion and extension of lumbar [spine] somewhat guarded secondary to pain, [antalgic gait noted] positive Candelaria's test, positive distraction test, positive compression test, positive Ryder's test Neurological: Speech clear, no gross sensory deficit Assessment:: Sacroiliitis bilateral, low back pain Plan:: We will schedule the patient for bilateral SI joint injections. She does have a positive Ryder's, compression, distraction test today. We will follow-up with her after the injections for further evaluation. She did get significant relief?up to 80% relief with her right SI joint injection. The pain has returned. It is now on the left side as well. Possible side effects of corticosteroids have been discussed with the patient. Risks and benefits of the procedure have been explained to the patient. Patient would like to proceed with the procedure. Patient has been instructed to contact the clinic with any concerns before the next appointment. Dr. Gonzalez has reviewed this note and agrees with this plan of care. This note was dictated using voice recognition software and make contain errors or omissions. [facility] History I have reviewed the patient's past medical history: Yes Medical History: Reports:: Anxiety, Coronary Artery Disease, Gastroesophageal Reflux Disease(GERD), Hyperlipidemia, Hypertension, Osteoporosis, Seizures Denies:: Cancer, Diabetes Mellitus Type 1, Diabetes Mellitus Type 2, MRSA *Have you ever received a pneumonia vaccine?: Yes *Have you received a flu vaccine this season?: Yes Other Medical History: Reports: Arthritis, Cataracts, Hypothyroidism, Osteoporosis, Thyroid Disease, Other. Denies: Blood Transfusion Reaction Other Surgeries: Yes: Other Amputation: No Fractures: No - *Social History Smoking Status: Former smoker Tobacco Type: cigarettes Alcohol Intake: never Substance Use Type: denies use *Occupational Status:: retired Housing: house Household Members: family *Travel in the last 8 weeks: None - Psychiatric History Pschychiatric History:: Reports:: Anxiety Family Hx:: Cancer, Heart Attack
== END ==
PROVIDERS: Visit Provider Clinical Nurse Specialist Family Health
DX: M46.1 Sacroiliitis, not elsewhere classified (principal); M54.50 Low back pain, unspecified
CPT/HCPCS: 99212; G0463

== ENCOUNTER 2021-07-18 10:03 | Day surgery (SDC) | payer MEDICARE, MEDICAID, SELFPAY ==
[2021-07-18 10:12] VITALS: BP 150/77; PULSE 92; RESP 18; TEMP 36.3; O2SAT 94; BMI 28.3
[2021-07-18 11:31] VITALS: BP 172/80; PULSE 88; RESP 18; O2SAT 95
[2021-07-18 11:33] VITALS: BP 149/90; PULSE 83; RESP 18; O2SAT 99
--- NOTE | 2021-07-18 11:47 | HMH.PMPROC ---
- Procedure Date: 07/18/21 Time: 11:47 Anesthesiologist:: Kimmy Nowak MD Complications:: None Pre-procedure Diagnosis:: Bilateral sacroiliitis, chronic low back pain, bilateral hip pain Post-procedure Diagnosis:: Same Indications for Procedure:: This patient is a very pleasant 80-year-old white female who presents today with chronic low back pain and hip pain related to the above diagnosis. She has tried and failed conservative treatment including oral pain medications and home stretching program for greater than 6 weeks. Plan for today is for the patient to undergo bilateral SI joint injections under fluoroscopy. Procedure Details:: B/L SI joint injection under fluoroscopy Informed consent was obtained and the risks and benefits of the procedure was explained to the patient. The patient was taken to the procedure room and placed prone on the procedure table. The patient was prepped using ChloraPrep. The skin and subcutaneous tissues overlying the SI joints were anesthetized using lidocaine. I placed a 22-gauge needle first in the left SI joint and second in the right SI joint. Needle placement was confirmed with dye. After this we injected 5 mL bupivacaine 0.25% and Depo-Medrol 40 mg into each SI joint. Patient tolerated the procedure well with no complication. Plan and Disposition:: We will follow-up with this patient in 2 weeks. Will reevaluate pain symptoms at that time.
[2021-07-18 11:49] VITALS: BP 149/80; PULSE 86; RESP 20; O2SAT 94
== END 2021-07-18 11:50 | disposition home or self-care (01) ==
LOC: SC.PAINP 10:05
PROVIDERS: PCP Family Medicine; Visit Provider Anesthesiology Pain Medicine
DX: M46.1 Sacroiliitis, not elsewhere classified (principal); M54.50 Low back pain, unspecified; G89.29 Other chronic pain; R13.10 Dysphagia, unspecified; I25.10 Atherosclerotic heart disease of native coronary artery without angina pectoris; E78.5 Hyperlipidemia, unspecified; I10 Essential (primary) hypertension; K21.9 Gastro-esophageal reflux disease without esophagitis; E03.9 Hypothyroidism, unspecified; Z87.891 Personal history of nicotine dependence; Z88.6 Allergy status to analgesic agent
CPT/HCPCS: 27096; G0260; J1040; Q9966

== ENCOUNTER → 2021-08-12 11:20 | Outpatient (POV) | payer MEDICARE, MEDICAID, SELFPAY ==
[2021-08-12 11:54] VITALS: BP 173/90; PULSE 98; RESP 18; O2SAT 95; BMI 28.3
--- NOTE | 2021-08-12 12:00 | HMH.PAINSOAP ---
[facility] Pain Management SOAP Note Subjective:: Patient is an 80-year-old white female who presents today for follow-up. She recently had bilateral SI joint injections on 07/18/2021. She reports that she got significant relief up to 70 to 80% for a few weeks. The patient's pain has returned. She would like to proceed with repeat injections. The pain is made worse with standing and walking and does radiate into the right hip. Review of Systems General: No recent weight changes, no fever, no sleep disturbances Respiratory: No cough, no shortness of air, no recurring pulmonary infections Cardiovascular/peripheral vascular: No chest pain, no palpitations, no edema, no shortness of breath Gastrointestinal: No new onset incontinence, normal bowel movements reported Genitourinary: No new onset incontinence Musculoskeletal: Low back pain with radiation into hips and groin Psychiatric: [Normal mood/affect] Neurological: [Denies weakness in extremities], [denies balance issues] Objective:: Physical exam General: Alert and oriented x3, no acute distress, pleasant and cooperative Lungs: Respirations even and unlabored, symmetrical chest expansion Eyes: PERRL Musculoskeletal: Flexion and extension of lumbar [spine] somewhat guarded secondary to pain, [antalgic gait noted], positive Candelaria's test, positive distraction test, positive compression test, positive Rdyer's test Neurological: Speech clear, no gross sensory deficit Assessment:: Sacroiliitis bilateral Plan:: We will schedule the patient for bilateral SI joint injections. She got up to 70 to 80% relief with previous injections. She says she got a few weeks of relief. We will plan for the injections and see her back in the clinic after her injection therapy for further evaluation. She may be a candidate for an oral lock procedure if she gets relief in pain returns after the injections. I did not have any educational information to provide the patient today in the clinic. She may benefit from educational information at next visit. Possible side effects of corticosteroids have been discussed with the patient. Risks and benefits of the procedure have been explained to the patient. Patient would like to proceed with the procedure. Patient has been instructed to contact the clinic with any concerns before the next appointment. Dr. Gonzalez has reviewed this note and agrees with this plan of care. This note was dictated using voice recognition software and make contain errors or omissions. [facility] History I have reviewed the patient's past medical history: Yes Medical History: Reports:: Anxiety, Coronary Artery Disease, Gastroesophageal Reflux Disease(GERD), Heart Murmur, Hyperlipidemia, Hypertension, Osteoporosis, Seizures Denies:: Cancer, Diabetes Mellitus Type 1, Diabetes Mellitus Type 2, MRSA *Have you ever received a pneumonia vaccine?: Yes *Have you received a flu vaccine this season?: Yes Other Medical History: Reports: Arthritis, Cataracts, Hypothyroidism, Osteoporosis, Thyroid Disease, Other. Denies: Blood Transfusion Reaction Other Surgeries: Yes: Other Amputation: No Fractures: No - *Social History Smoking Status: Former smoker Tobacco Type: cigarettes Alcohol Intake: never Substance Use Type: denies use *Occupational Status:: unemployed Housing: house Household Members: family *Travel in the last 8 weeks: None - Psychiatric History Pschychiatric History:: Reports:: Anxiety Family Hx:: Other
== END ==
PROVIDERS: Visit Provider Clinical Nurse Specialist Family Health
DX: M46.1 Sacroiliitis, not elsewhere classified (principal)
CPT/HCPCS: 99212; G0463

== ENCOUNTER 2021-09-12 11:30 | Day surgery (SDC) | payer MEDICARE, MEDICAID, SELFPAY ==
[2021-09-12 11:48] VITALS: BP 147/90; BP 164/82; BP 170/85; PULSE 86; PULSE 90; PULSE 91; RESP 18; RESP 20; TEMP 36.4; O2SAT 96; O2SAT 97; O2SAT 98; BMI 28.3
[2021-09-12 12:15] VITALS: BP 189/79; PULSE 89; RESP 20; O2SAT 96
--- NOTE | 2021-09-12 12:31 | HMH.PMPROC ---
- Procedure Date: 09/12/21 Time: 12:31 Anesthesiologist:: Franklyn Gonzalez MD Complications:: None Pre-procedure Diagnosis:: Sacroiliitis Post-procedure Diagnosis:: Same Indications for Procedure:: Patient is a pleasant 80-year-old white female who we are treating for bilateral hip pain. She is tender over both SI joints. She has a positive Ryder's test bilaterally. She is positive Melina test bilaterally. She is positive SI joint compression test bilaterally. She has a positive distraction test bilaterally. We will plan on bilateral SI joint injections under fluoroscopy today to see if this helps with her pain symptoms. Procedure Details:: B/L SI joint injection under fluoroscopy Informed consent was obtained and the risks and benefits of the procedure was explained to the patient. The patient was taken to the procedure room and placed prone on the procedure table. The patient was prepped using ChloraPrep. The skin and subcutaneous tissues overlying the SI joints were anesthetized using lidocaine. I placed a 22-gauge needle first in the left SI joint and second in the right SI joint. Needle placement was confirmed with dye. After this we injected 5 mL bupivacaine 0.25% and Depo-Medrol 40 mg into each SI joint. Patient tolerated the procedure well with no complication. Plan and Disposition:: We will follow-up with her in 2 weeks. Will reevaluate symptoms at that time.
== END 2021-09-12 12:15 | disposition home or self-care (01) ==
LOC: SC.PAINP 11:31
PROVIDERS: PCP Family Medicine; Visit Provider Anesthesiology
DX: M46.1 Sacroiliitis, not elsewhere classified (principal); E78.5 Hyperlipidemia, unspecified; I10 Essential (primary) hypertension; K21.9 Gastro-esophageal reflux disease without esophagitis; E03.9 Hypothyroidism, unspecified; R56.9 Unspecified convulsions; Z86.69 Personal history of other diseases of the nervous system and sense organs; Z88.6 Allergy status to analgesic agent; Z79.899 Other long term (current) drug therapy
CPT/HCPCS: 27096; G0260; J1030; Q9966

== ENCOUNTER → 2021-10-27 10:28 | Outpatient (CLI) | payer MEDICARE, MEDICAID, SELFPAY | PROVIDERS: PCP Family Medicine; Visit Provider Family Medicine | DX: R82.81 Pyuria (principal); B96.20 Unspecified Escherichia coli [E. coli] as the cause of diseases classified elsewhere | CPT/HCPCS: 87086; 87088; 87186 ==

== ENCOUNTER → 2021-10-30 13:50 | Outpatient (POV) | payer MEDICARE, MEDICAID, SELFPAY ==
[2021-10-30 14:10] VITALS: BP 189/82; PULSE 90; RESP 19; TEMP 36.8; O2SAT 94; BMI 28.3
--- NOTE | 2021-10-30 16:32 | P.CONS_ITS ---
[facility] Pain Management SOAP Note Subjective:: Patient is a pleasant 81-year-old female who presents today for follow-up after a bilateral SI injection on September 12, 2021. Patient is currently being treated for sacroiliitis. After the procedure, patient had significant relief of about 80 to 90% that lasted for 3 to 4 weeks. Patient says that she was able to increase her activity in those 3 to 4 weeks. She says that her pain started coming back around a week ago. No recent falls or traumas. Rates pain today as 7 out of 10. Patient wants to know if we can do a repeat SI injection. Review of Systems: General: No recent weight changes, no fever, no sleep disturbances Respiratory: No cough, no shortness of air, no recurring pulmonary infections Cardiovascular/peripheral vascular: No chest pain, no palpitations, no edema, no shortness of breath Gastrointestinal: No new onset incontinence, normal bowel movements reported Genitourinary: No new onset incontinence Musculoskeletal: Bilateral hip pain Psychiatric: [Normal mood/affect] Neurological: [Denies weakness in extremities], [denies balance issues] Objective:: Physical Exam: General: Alert and oriented x3, no acute distress, pleasant and cooperative, [on room air] Lungs: Respirations even and unlabored, symmetrical chest expansion Eyes: PERRL Musculoskeletal: Bilateral SIR positive for DORA, Candelaria's, Cadiz's, Gaenslen's, compression, and distraction. Patient is tender to palpation on both greater trochanteric bursa. Neurological: Speech clear, no gross sensory deficit Assessment:: Sacroiliitis, greater trochanteric bursitis Plan:: Patient is significant relief after her bilateral SI injection. This lasted for about 3 to 4 weeks. Today, she feels like her pain is starting to come back. She cannot tolerate any full activity such as sitting, standing, and walking. She is having some pain and numbness around her bilateral lateral hips.Bilateral SIR positive for DORA, Candelaria's, Cadiz's, Gaenslen's, compression, and distraction. Patient is tender to palpation on both greater trochanteric bursa. We will schedule the patient for a bilateral greater trochanteric bursae injection. Risks and benefits of the procedure have been explained to the patient. Patient would like to proceed with the procedure. After the bursa injections, we will consider doing a repeat bilateral SI injections. Patient has been instructed to contact the clinic with any concerns before the next appointment. Dr. Gonzalez has reviewed this note and agrees with this plan of care. This note was dictated using voice recognition software and make contain errors or omissions. [facility] History Medical History: Reports:: Anxiety, Coronary Artery Disease, Gastroesophageal Reflux Disease(GERD), Heart Murmur, Hyperlipidemia, Hypertension, Osteoporosis, Seizures Denies:: Cancer, Diabetes Mellitus Type 1, Diabetes Mellitus Type 2, MRSA *Have you ever received a pneumonia vaccine?: Yes *Have you received a flu vaccine this season?: Yes Other Medical History: Reports: Arthritis, Cataracts, Hypothyroidism, Osteoporosis, Thyroid Disease, Other. Denies: Blood Transfusion Reaction Other Surgeries: Yes: Other Amputation: No Fractures: No - *Social History Smoking Status: Never smoker Tobacco Type: cigarettes Alcohol Intake: never Substance Use Type: denies use *Occupational Status:: retired Housing: house Household Members: family *Travel in the last 8 weeks: None - Psychiatric History Pschychiatric History:: Reports:: Anxiety Family Hx:: No significant family history
== END ==
PROVIDERS: Visit Provider Student in an Organized Health Care Education/Training Program
DX: M46.1 Sacroiliitis, not elsewhere classified (principal); M70.60 Trochanteric bursitis, unspecified hip
CPT/HCPCS: 99212; G0463

== ENCOUNTER 2021-11-14 11:05 | Day surgery (SDC) | payer MEDICARE, MEDICAID, SELFPAY ==
[2021-11-14 11:22] VITALS: BP 132/81; PULSE 67; RESP 18; TEMP 36.4; O2SAT 95; BMI 28.3
--- NOTE | 2021-11-14 11:33 | HMH.PMPROC ---
- Procedure Date: 11/14/21 Time: 11:33 Anesthesiologist:: Jim Ventura CRNA Complications:: None Pre-procedure Diagnosis:: Bilateral trochanteric bursitis Post-procedure Diagnosis:: Same Indications for Procedure:: Very pleasant 81-year-old female that presents to our clinic today for bilateral trochanteric bursa injections. She has been here recently and had successful bilateral SI joint injections with relief. She is continue to have lateral hip pain laterally. Procedure Details:: Mild bilateral trochanteric bursa injection Plan and Disposition:: Patient was discharged without incident.
[2021-11-14 11:38] VITALS: BP 145/71; PULSE 92; RESP 18; O2SAT 94
[2021-11-14 11:39] VITALS: BP 145/71; PULSE 92; RESP 18; O2SAT 94
[2021-11-14 11:49] VITALS: BP 143/83; PULSE 85; RESP 18; O2SAT 94
== END 2021-11-14 11:50 | disposition home or self-care (01) ==
LOC: SC.PAINP 11:06
PROVIDERS: PCP Family Medicine; Visit Provider Nurse Anesthetist, Certified Registered
DX: M70.61 Trochanteric bursitis, right hip (principal); M70.62 Trochanteric bursitis, left hip; M46.1 Sacroiliitis, not elsewhere classified; F41.9 Anxiety disorder, unspecified; I25.10 Atherosclerotic heart disease of native coronary artery without angina pectoris; I10 Essential (primary) hypertension; K21.9 Gastro-esophageal reflux disease without esophagitis; E78.5 Hyperlipidemia, unspecified; M81.0 Age-related osteoporosis without current pathological fracture; M19.90 Unspecified osteoarthritis, unspecified site; Z88.6 Allergy status to analgesic agent
CPT/HCPCS: 20610; J1040

== ENCOUNTER → 2021-12-12 12:45 | Outpatient (POV) | payer MEDICARE, MEDICAID, SELFPAY ==
--- NOTE | 2021-12-12 13:32 | HMH.PAINSOAP ---
[facility] Pain Management SOAP Note Subjective:: This patient is a very pleasant 81-year-old female that returns our clinic today after receiving bilateral trochanteric bursa injections. Patient states relief from the bilateral trochanteric bursa injections. However, she said it is starting to flareup again to some degree. However, she is much better than she was prior to the injections. Her main complaint today is bilateral posterior knee pain. Patient's been told in the past she has osteoarthritis in the knees. She has never had a intra-articular cortisone shot in either knee. I talked at length with the patient and her daughter regarding intra-articular knee injections. They wish to proceed. Patient describes her knee pain is constant, dull, aching. Walking for any length of time is difficult. She rates her bilateral knee pain 7/10. Her daughter states she does not complain much about her hips at this time. Objective:: Patient is awake alert oriented x3. In no acute distress. She does have some dementia issues. Motor strength upper and lower extremities normal. There is no gross sensory deficit. Gait is antalgic requiring a wheelchair for any distance. However patient states she is up and walking around in her own home. Assessment:: Degenerative disc disease lumbar spine. Bilateral knee osteoarthritis. Bilateral trochanteric bursitis. Lumbar radiculopathy symptoms. Plan:: We will move forward with bilateral intra-articular knee injections. Also, discussed briefly regarding the need for potential lumbar epidural steroid injection in the near future. She has had this injection before in the past with significant improvements terms of bilateral leg radiculopathy symptoms. [facility] History Medical History: Reports:: Anxiety, Coronary Artery Disease, Gastroesophageal Reflux Disease(GERD), Heart Murmur, Hyperlipidemia, Hypertension, Osteoporosis, Seizures Denies:: Cancer, Diabetes Mellitus Type 1, Diabetes Mellitus Type 2, MRSA *Have you ever received a pneumonia vaccine?: Yes *Have you received a flu vaccine this season?: Yes Other Medical History: Reports: Arthritis, Cataracts, Hypothyroidism, Osteoporosis, Thyroid Disease, Other. Denies: Blood Transfusion Reaction Other Surgeries: Yes: Other Amputation: No Fractures: No - *Social History Smoking Status: Never smoker Tobacco Type: cigarettes Alcohol Intake: never Substance Use Type: denies use *Occupational Status:: retired Housing: house Household Members: family *Travel in the last 8 weeks: Inside the [facility] - Psychiatric History Pschychiatric History:: Reports:: Anxiety Family Hx:: No significant family history
[2021-12-12 14:06] VITALS: BP 171/79; PULSE 79; RESP 18; TEMP 36.6; O2SAT 92; BMI 28.3
== END ==
PROVIDERS: PCP Family Medicine; Visit Provider Nurse Anesthetist, Certified Registered
DX: M25.562 Pain in left knee (principal); M25.561 Pain in right knee; M70.62 Trochanteric bursitis, left hip; M70.61 Trochanteric bursitis, right hip; M17.0 Bilateral primary osteoarthritis of knee
CPT/HCPCS: 99212; G0463

== ENCOUNTER 2021-12-19 09:56 | Day surgery (SDC) | payer MEDICARE, MEDICAID, SELFPAY ==
[2021-12-19 10:06] VITALS: BP 157/70; PULSE 81; RESP 20; TEMP 36.5; O2SAT 90; BMI 28.3
[2021-12-19 10:31] VITALS: BP 164/71; PULSE 46; RESP 17; O2SAT 97
[2021-12-19 10:33] VITALS: BP 146/89; PULSE 89; RESP 20
--- NOTE | 2021-12-19 10:41 | HMH.PMPROC ---
- Procedure Date: 12/19/21 Time: 10:42 Anesthesiologist:: Jim Ventura CRNA Complications:: None Pre-procedure Diagnosis:: Degenerative osteoarthritis bilateral knees. Post-procedure Diagnosis:: Same Indications for Procedure:: Very pleasant 81-year-old female that returns our clinic today for bilateral intra-articular knee injections. . However, she does have chronic osteoarthritis symptoms bilateral knees. She reports pain in the knees is significant when walking any distance. She describes the pain as sharp stabbing both medial and laterally. Procedure Details:: Procedure Details: Bilateral intra-articular knee injection Informed consent was obtained risk and benefits of the procedure were explained to the patient. Patient was taken the procedure room both knees were prepped using ChloraPrep. A 25-gauge needle was used to inject 10 mL bupivacaine 0.25% and Depo-Medrol 40 mg into each knee. We did a total of 80 mg Depo-Medrol for both knees. The patient tolerated the procedure well with no complications. Plan and Disposition:: We will follow-up with her in 2 weeks. Will reevaluate symptoms at that time. Plan and Disposition:: Patient was discharged without incident.
== END 2021-12-19 10:32 | disposition home or self-care (01) ==
LOC: SC.PAINP 09:57
PROVIDERS: PCP Family Medicine; Visit Provider Nurse Anesthetist, Certified Registered
DX: M17.0 Bilateral primary osteoarthritis of knee (principal); M81.0 Age-related osteoporosis without current pathological fracture
CPT/HCPCS: 20610; J1040

== ENCOUNTER → 2022-01-13 14:02 | Outpatient (POV) | payer MEDICARE, MEDICAID, SELFPAY ==
[2022-01-13 14:20] VITALS: BP 150/69; PULSE 85; RESP 18; TEMP 36.4; O2SAT 95; BMI 28.3
--- NOTE | 2022-01-13 14:31 | P.CONS_ITS ---
[facility] Pain Management SOAP Note Subjective:: Patient is a very pleasant 81-year-old female that returns to clinic today for follow-up from bilateral intra-articular knee injections. We are currently treating the patient for degenerative disc disease of lumbar spine with lumbar radiculopathy symptoms, bilateral knee osteoarthritis, bilateral trochanteric bursitis. She states that she has had significant relief from her knee injections. She states upwards of 80% relief. Patient says she has been able to increase her ADLs following the injection. Today she rates her pain an 8 out of 10. She states her pain is in her right hip. She describes this as an aching sensation that is worse with activity. She denies any trauma or injury to the area. Patient states she has tried oral medications, heating pad and topicals to this area with minimal relief. She would like to schedule injections possibly for this area. She does take gabapentin 300 mg 4 times a day and oxycodone 10 mg twice a day, both of these medications are prescribed by her primary care doctor. She states these medications do help manage her pain. Her Jacob is [phone] with a morphine equivalent of 30. It has been reviewed and is appropriate. Objective:: Patient is awake alert and oriented x3. She is in no acute distress. She does have some dementia issues. Motor strength upper and lower extremities normal. There is no gross sensory deficit. Gait is antalgic requiring a wheelchair for any distance. Patient states she is up and walking around in her own home. She has point tenderness on her right hip and right piriformis area. Assessment:: Degenerative disc disease of lumbar spine with lumbar radiculopathy symptoms, bilateral knee osteoarthritis, bilateral trochanteric bursitis Plan:: Patient has had 80% relief from bilateral intra-articular knee injections. At this time these do not need to be repeated. Patient is complaining of right hip pain. She was positive for point tenderness along her right hip as well as her piriformis area. I have discussed both of these possible injections to the patient. Risk and benefits were explained. Patient would like to proceed forward with the piriformis injection on her right side at this time. Patient is not currently taking any blood thinners. We will schedule her today for the right piriformis injection. Patient has been advised to contact the office with any questions or concerns before her next appointment. Dr. Gonzalez has reviewed and agrees with this plan of care. [facility] History I have reviewed the patient's past medical history: Yes Medical History: Reports:: Anxiety, Coronary Artery Disease, Gastroesophageal Reflux Disease(GERD), Heart Murmur, Hyperlipidemia, Hypertension, Osteoporosis, Seizures Denies:: Cancer, Diabetes Mellitus Type 1, Diabetes Mellitus Type 2, MRSA *Have you ever received a pneumonia vaccine?: Yes *Have you received a flu vaccine this season?: Yes Other Medical History: Reports: Arthritis, Cataracts, Hypothyroidism, Osteoporosis, Thyroid Disease, Other. Denies: Blood Transfusion Reaction Other Surgeries: Yes: Other Amputation: No Fractures: No - *Social History Smoking Status: Never smoker Tobacco Type: cigarettes Alcohol Intake: never Substance Use Type: denies use *Occupational Status:: other Housing: house Household Members: family *Travel in the last 8 weeks: Inside the [place] - Psychiatric History Pschychiatric History:: Reports:: Anxiety Family Hx:: No significant family history
== END ==
PROVIDERS: PCP Family Medicine; Visit Provider Nurse Anesthetist, Certified Registered
DX: M51.16 Intervertebral disc disorders with radiculopathy, lumbar region (principal); M70.61 Trochanteric bursitis, right hip; M70.62 Trochanteric bursitis, left hip; M17.0 Bilateral primary osteoarthritis of knee
CPT/HCPCS: 99212; G0463

== ENCOUNTER 2022-01-23 13:25 | Day surgery (SDC) | payer MEDICARE, MEDICAID, SELFPAY ==
[2022-01-23 13:36] VITALS: BP 156/90; PULSE 85; RESP 18; TEMP 36.6; O2SAT 96; BMI 28.3
--- NOTE | 2022-01-23 13:43 | HMH.PMPROC ---
- Procedure Date: 01/23/22 Time: 13:43 Anesthesiologist:: Jim Ventura CRNA Complications:: None Pre-procedure Diagnosis:: Right piriformis inflammation. Post-procedure Diagnosis:: Same Indications for Procedure:: This patient is a pleasant 81-year-old female that comes to our clinic today for right piriformis injection. Patient complains of right buttock pain. Rates the pain 8/10. Procedure Details:: Details of the procedure were explained to the patient. The patient taken the procedure room placed in the prone position. The area over the right buttock was cleaned using chlorhexidine as a cleansing solution. Under fluoroscopy guidance a 3-1/2 inch 22-gauge spinal needle was used to access the right piriformis muscle. This was located without difficulty just caudad to the distal tip of the right SI joint. A solution containing 3 cc of 1% lidocaine +3 cc of 0.25% Marcaine and 40 mg of Depo-Medrol was injected. This was after negative aspiration. Patient tolerated the procedure without difficulty. There are no complications. Plan and Disposition:: Patient was discharged without incident
[2022-01-23 13:46] VITALS: BP 189/77; PULSE 96; RESP 20
[2022-01-23 13:53] VITALS: BP 147/69; PULSE 86; RESP 18; O2SAT 94
== END 2022-01-23 13:54 | disposition home or self-care (01) ==
LOC: SC.PAINP 13:26
PROVIDERS: PCP Family Medicine; Visit Provider Nurse Anesthetist, Certified Registered
DX: G57.01 Lesion of sciatic nerve, right lower limb (principal); M19.90 Unspecified osteoarthritis, unspecified site; M81.0 Age-related osteoporosis without current pathological fracture
CPT/HCPCS: 20552; 77002; J1040

== ENCOUNTER → 2022-02-17 10:11 | Outpatient (POV) | payer MEDICARE, MEDICAID, SELFPAY ==
[2022-02-17 10:19] VITALS: BP 121/62; PULSE 82; RESP 20; O2SAT 94; BMI 28.3
--- NOTE | 2022-02-17 12:37 | HMH.PAINSOAP ---
[facility] Pain Management SOAP Note Subjective:: Patient is a pleasant 81-year-old female who returns to clinic for follow-up of a right piriformis injection on 01/23/2022. We are currently treating the patient for degenerative disc disease of lumbar spine with lumbar radiculopathy symptoms, bilateral knee osteoarthritis, bilateral trochanteric bursitis. Patient states that she has had significant improvement since having the right piriformis injection. She states that she has had about 50 to 60% improvement and states she feels that it is still continuing to help. Today she rates her pain a 5 out of 10. She states her pain is all in her low back on the right side that radiates into her right hip and groin and goes down her right leg. She states this is a aching throbbing sensation that is worse with increased activity. We have done injective therapy in the past that provided significant relief. Patient has tried oral medications, heating pad and topicals to this area with minimal relief. She is managed with gabapentin 300 mg 4 times a day and oxycodone 10 mg twice a day both of these are written by Dr. Campos. Patient denies any side effects from these medications. Patient states these are adequately managing her pain. Her Jacob is [id number]. Is been reviewed and appropriate. Review of Systems: General: No recent weight changes, no fever, no sleep disturbances Respiratory: No cough, no shortness of air, no recurring pulmonary infections Cardiovascular/peripheral vascular: No chest pain, no palpitations, no edema, no shortness of breath Gastrointestinal: No new onset incontinence, normal bowel movements reported Genitourinary: No new onset incontinence Musculoskeletal: Low back pain, right hip pain, right groin pain, right leg pain Psychiatric: [Normal mood/affect] Neurological: [Denies weakness in extremities], [denies balance issues] Objective:: Physical Exam: General: Alert and oriented x3, no acute distress, pleasant and cooperative Lungs: Respirations even and unlabored, symmetrical chest expansion Eyes: PERRL Musculoskeletal: Flexion and extension of lumbar [spine] somewhat guarded secondary to pain, [antalgic gait noted]. Extreme point tenderness along right SI and right hip. Positive right Candelaria's, Ryder, Gaenslen's, compression and distraction exam Neurological: Speech clear, no gross sensory deficit Assessment:: Degenerative disc disease of lumbar spine with lumbar radiculopathy symptoms, bilateral knee osteoarthritis, bilateral trochanteric bursitis, right sacroiliitis Plan:: Patient is still having significant pain along her right lumbar spine and radiates to her right hip and into her right groin. Patient had extreme point tenderness along her right SI and right hip and a positive right Ryder's, Candelaria's, Gaenslen's, compression and distraction test on today's exam. I have discussed with the patient regarding having a repeat right greater trochanteric bursa injection and right SI injection. Risk and benefits were discussed with the patient. She would like to proceed forward with this injection. I have also discussed with the patient regarding a compounding cream. I will order this at today's visit. We will schedule the patient for a right greater trochanteric bursa injection and right SI injection at today's visit. Patient has been instructed to contact the clinic with any concerns before the next appointment. Dr. Gonzalez has reviewed this note and agrees with this plan of care. This note was dictated using voice recognition software and make contain errors or omissions. [facility] History I have reviewed the patient's past medical history: Yes Medical History: Reports:: Anxiety, Coronary Artery Disease, Gastroesophageal Reflux Disease(GERD), Heart Murmur, Hyperlipidemia, Hypertension, Osteoporosis, Seizures Denies:: Cancer, Diabetes Mellitus Type 1, Diabetes Mellitus Type 2, MRSA *Have you ever received a pneumonia vaccine?: Yes *Bey
== END ==
PROVIDERS: PCP Family Medicine; Visit Provider Nurse Practitioner Family
DX: M51.16 Intervertebral disc disorders with radiculopathy, lumbar region (principal); M70.61 Trochanteric bursitis, right hip; M70.62 Trochanteric bursitis, left hip; M46.1 Sacroiliitis, not elsewhere classified
CPT/HCPCS: 99212; G0463

== ENCOUNTER 2022-02-24 11:58 | Day surgery (SDC) | payer MEDICARE, MEDICAID, SELFPAY ==
[2022-02-24 12:06] VITALS: BP 153/62; PULSE 80; RESP 18; TEMP 36.4; O2SAT 96; BMI 28.3
[2022-02-24 12:30] VITALS: BP 152/78; PULSE 76; RESP 18; O2SAT 97
--- NOTE | 2022-02-24 12:34 | P.PCN_ITS ---
- Procedure Date: 02/24/22 Time: 12:34 Anesthesiologist:: Franklyn Gonzalez MD Complications:: None Pre-procedure Diagnosis:: Sacroiliitis and trochanteric bursitis Post-procedure Diagnosis:: Same Indications for Procedure:: This patient is a pleasant 81-year-old white female who we are treating for right-sided hip pain. She is tender over the right SI joint. She does have a positive Ryder's test on the right side. She has positive [place]'s test on the right side. She is positive SI joint compression test on the right side. We will plan on a right SI joint injection under fluoroscopy today. She is also tender over the right trochanteric bursa. Plan on a right trochanteric bursa injection under fluoroscopy today. Procedure Details:: Right SI joint injection under fluoroscopy Informed consent was obtained and the risks and benefits of the procedure was going to the patient. Patient was taken to the procedure room. Patient was placed prone on the procedure table. The right hip was prepped using ChloraPrep. The skin and subcutaneous tissues were anesthetized using lidocaine. I placed a 22-gauge spinal needle into the inferior aspect of the r ight SI joint. Needle placement was confirmed with dye. After this we injected 5 mL bupivacaine 0.25% and Depo-Medrol 40 mg into the right SI joint. The patient tolerated the procedure well with no complication. Trochanteric bursa injection under fluoroscopy informed consent was obtained and the risk and benefits of the procedure was explained to the patient. The patient was taken to the procedure room. The right hip was prepped using ChloraPrep. The skin and subcutaneous tissues were anesthetized using lidocaine. I placed a 22-gauge spinal needle and advanced under fluoroscopic guidance until it contacted the right greater trochanter. Needle placement was confirmed with dye. After this I injected bupivacaine 0.25% 5 mL and Depo-Medrol 40 mg into the right trochanteric bursa. Patient tolerated the procedure well with no complications. Plan and Disposition:: We will follow-up with her in 2 weeks. Will reevaluate symptoms at that time.
== END 2022-02-24 12:32 | disposition home or self-care (01) ==
LOC: SC.PAINP 11:59
PROVIDERS: PCP Family Medicine; Visit Provider Anesthesiology
DX: M46.1 Sacroiliitis, not elsewhere classified (principal); M70.61 Trochanteric bursitis, right hip
CPT/HCPCS: 20610; 27096; 77002; G0260; J1040

== ENCOUNTER → 2022-03-16 11:31 | Outpatient (POV) | payer MEDICARE, MEDICAID, SELFPAY ==
[2022-03-16 11:48] VITALS: BP 181/85; PULSE 81; RESP 18; TEMP 36.1; O2SAT 94; BMI 28.6
--- NOTE | 2022-03-16 11:50 | EXP.PAIN.SOA ---
[facility] Pain Management SOAP Note Subjective:: Patient is a pleasant 81-year-old female who presents today for follow-up from right SI and right trochanteric bursa injection on 02/24/2022. We are currently treating the patient for degenerative disc disease of lumbar spine with lumbar radiculopathy symptoms, bilateral knee osteoarthritis, bilateral trochanteric bursitis, bilateral sacroiliitis. Today the patient states that she had significant improvement along her right SI and right hip following this injection. She still feels like it is helping her symptoms. Patient has had at least 50% improvement in her symptoms. Today the patient rates her pain a 5 out of 10 and states it is primarily in her low back on the right side and upper right thigh. Patient denies any new trauma or injury to the site. She describes this as a steady ache that is worse with increased activity. Patient has used a heating pad to provide some relief as well as rubbing her thigh provide significant improvement. Patient has been previously prescribed compounding cream however the patient did not proceed forward with this order at our last visit. Today the daughter states they will call and fill this medication. Patient is currently managed with oxycodone 10 mg twice a day and gabapentin 300 mg 4 times a day by Dr. Campos. Patient denies any side effects from this medication. She states this medication is adequately managing her pain. Her Jacob is [id number]. Its been reviewed and appropriate. Review of Systems: General: No recent weight changes, no fever, no sleep disturbances Respiratory: No cough, no shortness of air, no recurring pulmonary infections Cardiovascular/peripheral vascular: No chest pain, no palpitations, no edema, no shortness of breath Gastrointestinal: No new onset incontinence, normal bowel movements reported Genitourinary: No new onset incontinence Musculoskeletal: Low back pain, right anterior thigh pain Psychiatric: [Normal mood/affect] Neurological: [Denies weakness in extremities], [denies balance issues] Objective:: Physical Exam: General: Alert and oriented x3, no acute distress, pleasant and cooperative Lungs: Respirations even and unlabored, symmetrical chest expansion Eyes: PERRL Musculoskeletal: Flexion and extension of lumbar [spine] somewhat guarded secondary to pain, [antalgic gait noted] Neurological: Speech clear, no gross sensory deficit Assessment:: Degenerative disc disease of lumbar spine with lumbar radiculopathy symptoms, bilateral knee are osteoarthritis, bilateral trochanteric bursitis, bilateral sacroiliitis Plan:: Patient is experiencing worsening pain along her low back on the right side along with anterior right thigh pain. I have discussed with the patient regarding a transforaminal epidural steroid injection. Risk and benefits were discussed with the patient. She would like to proceed forward with this injection. Patient is not currently on any blood thinners. Patient is planning on filling her compounding cream in order. We will schedule the patient for a right transforaminal epidural steroid injection of L4-L5 and L5-S1 at today's visit. Patient has been instructed to contact the clinic with any concerns before the next appointment. Dr. Gonzalez has reviewed this note and agrees with this plan of care. This note was dictated using voice recognition software and make contain errors or omissions. PFSH PFS Social History Smoking Status: Never smoker alcohol intake: never substance use type: denies use current occupational status: disabled Travel in the last 8 weeks: None household members: family housing: house current occupational exposures/hazards: No caffeine: Yes
== END ==
PROVIDERS: Visit Provider Nurse Practitioner Family
DX: M51.16 Intervertebral disc disorders with radiculopathy, lumbar region (principal); M46.1 Sacroiliitis, not elsewhere classified; M70.61 Trochanteric bursitis, right hip; M70.62 Trochanteric bursitis, left hip; M17.0 Bilateral primary osteoarthritis of knee
CPT/HCPCS: 99212; G0463

== ENCOUNTER → 2022-03-27 10:56 | Day surgery (SDC) | payer MEDICARE, MEDICAID, SELFPAY ==
[2022-03-27 11:07] VITALS: BP 175/75; PULSE 89; RESP 20; TEMP 36.4; O2SAT 96; BMI 28.3
[2022-03-27 11:17] VITALS: BP 180/97; RESP 90; O2SAT 98
[2022-03-27 11:21] VITALS: BP 170/90; PULSE 90; RESP 18; O2SAT 98
--- NOTE | 2022-03-27 11:39 | P.PCN_ITS ---
Procedure Date: 03/27/22 Time: 11:39 Anesthesiologist:: Franklyn Gonzalez MD Complications:: None Pre-procedure Diagnosis:: Degenerative disc disease of the lumbar spine with lumbar radiculopathy symptoms down the right leg Post-procedure Diagnosis:: Same Indications for Procedure:: This patient is a pleasant 81-year-old white female who we are treating for low back pain and right leg radicular symptoms. She has increasing pain down her right leg. She also has right-sided sacroiliitis. She did very well from a right SI joint injection. Most of her pain is radicular in nature down the right leg. We will do a right L4-L5 and L5-S1 transforaminal epidural steroid injections to see if this will help with her right leg radicular symptoms. Procedure Details:: Informed consent was obtained the risk and benefits of the procedure were explai eulogio to the patient. The patient was taken to the procedure room. Back was prepped using ChloraPrep. The skin and subtenons tissues were anesthetized using lidocaine. I placed 22-gauge spinal needles into the intervertebral foramen of L4-5 and L5-S1. Needle placement was confirmed in AP and lateral views. We then injected 3 mL bupivacaine 0.25% and Depo-Medrol 20 mg into each transforaminal epidural space of L4-5 and L5-S1. The patient tolerated procedure well with no complications. Plan and Disposition:: We will follow-up with this patient in 2 weeks. Will reevaluate her symptoms at that time. If she does not get significant relief from these injections she may be a candidate for a interlaminar epidural steroid injection.
[2022-03-27 11:44] VITALS: BP 180/80; PULSE 88; RESP 20; O2SAT 98
== END | disposition home or self-care (01) ==
PROVIDERS: PCP Family Medicine; Visit Provider Anesthesiology
DX: M51.16 Intervertebral disc disorders with radiculopathy, lumbar region (principal); M46.1 Sacroiliitis, not elsewhere classified
CPT/HCPCS: 64483; 64484; J1040; Q9966

== ENCOUNTER → 2022-04-20 13:29 | Outpatient (POV) | payer MEDICARE, MEDICAID, SELFPAY ==
[2022-04-20 13:50] VITALS: BP 128/76; PULSE 77; RESP 18; TEMP 36.9; O2SAT 98; BMI 28.6
--- NOTE | 2022-04-20 14:00 | EXP.PAIN.SOA ---
[facility] Pain Management SOAP Note Subjective:: Patient is a pleasant 81-year-old female who presents today for follow-up of transforaminal epidural steroid injection of L4-L5 and L5-S1 on 03/27/2022. We are currently treating the patient for degenerative disc disease of lumbar spine with lumbar radiculopathy symptoms, greater trochanteric bursitis, sacroiliitis, osteoarthritis bilateral knees. Patient states that she has had at least 60 to 70% improvement following this injection and feels like it is still helping. Today she rates her pain a 5 out of 10. She states the pain is primarily in her low back on the right side that radiates into her right hip and down her upper right thigh to the knee. Patient denies any new trauma or injury. She denies any change to location or type of pain she experiences. We have done injective therapy in the past that is provided significant improvement of her symptoms. Patient is currently managed with gabapentin 300 mg 4 times a day, oxycodone 10 mg twice a day and Briviact 75 mg twice a day by Dr. Triston Campos. Patient denies any side effects from these medications. She states these medications do adequately help manage her pain. Patient is also prescribed a compounding cream that she states provides significant improvement on her right leg/thigh pain. Her Jacob is [id number]. It has been reviewed and appropriate. Review of Systems: General: No recent weight changes, no fever, no sleep disturbances Respiratory: No cough, no shortness of air, no recurring pulmonary infections Cardiovascular/peripheral vascular: No chest pain, no palpitations, no edema, no shortness of breath Gastrointestinal: No new onset incontinence, normal bowel movements reported Genitourinary: No new onset incontinence Musculoskeletal: Low back pain, right hip pain, right leg pain Psychiatric: [Normal mood/affect] Neurological: [Denies weakness in extremities], [denies balance issues] Objective:: Physical Exam: General: Alert and oriented x3, no acute distress, pleasant and cooperative Lungs: Respirations even and unlabored, symmetrical chest expansion Eyes: PERRL Musculoskeletal: Flexion and extension of lumbar [spine] somewhat guarded secondary to pain, [antalgic gait noted]. Extreme point tenderness along right SI and positive right Ryder's, Candelaria's, Gaenslen's, compression and distraction exam Neurological: Speech clear, no gross sensory deficit Assessment:: Degenerative disc disease of lumbar spine with lumbar radiculopathy symptoms, greater trochanteric bursitis, sacroiliitis, osteoarthritis bilateral knees Plan:: Patient continues to have significant pain on her right side that radiates into her right hip and down her right leg to her knee. Patient did have limited range of motion of her lumbar spine during today's visit and positive right Ryder's, Candelaria's, Gaenslen's, compression and distraction exam. Patient also had extreme point tenderness along her right SI. I have discussed with the patient regarding having a repeat right SI injection. Risk and benefits were discussed with the patient. She would like to proceed forward with this plan of care. We will schedule the patient for right SI injection at today's visit. Patient has been instructed to contact the clinic with any concerns before the next appointment. Dr. Gonzalez has reviewed this note and agrees with this plan of care. This note was dictated using voice recognition software and make contain errors or omissions. [facility] Medical History History of seizure Family History Other No significant family history Social History Smoking Status: Never smoker alcohol intake: never substance use type: denies use current occupational status: retired Travel in the last 8 weeks: None household members: family housing: hous
== END ==
PROVIDERS: PCP Family Medicine; Visit Provider Nurse Practitioner Family
DX: M51.16 Intervertebral disc disorders with radiculopathy, lumbar region (principal); M46.1 Sacroiliitis, not elsewhere classified; M70.60 Trochanteric bursitis, unspecified hip; M17.0 Bilateral primary osteoarthritis of knee
CPT/HCPCS: 99212; G0463

== ENCOUNTER → 2022-04-27 16:45 | Outpatient (CLI) | payer MEDICARE, MEDICAID, SELFPAY ==
--- NOTE | 2022-04-27 | XR_ITS ---
PROCEDURE INFORMATION: Exam: XR Chest Exam date and time: 04/27/2022 5:10 PM Age: 81 years old Clinical indication: Cough; Additional info: Covid screening, cough, hoarse TECHNIQUE: Imaging protocol: Radiologic exam of the chest. Views: 1 view. AP portable upright exam 5:11 p.m. COMPARISON: CR XR CHEST PORTABLE 01/02/2021 5:38 PM FINDINGS: Lungs: Lung volumes appear within upper limits normal. Chronic lower pulmonary interstitial prominence compared with 01/02/2021. No focal consolidation or air bronchograms. There is haziness at both costophrenic angles which could be due to a prominent pericardial fat pad and pleural reflection rather than airspace disease in the right middle lobe or left lingula. Note that ground-glass disease of COVID-19 pneumonia can be radiographically occult, and is more accurately evaluated with CT if clinically indicated. Pulmonary vessels do not appear congested. Pleural spaces: Unremarkable. No significant pleural effusion. No pneumothorax. Heart/Mediastinum: Chronic enlarged cardiac silhouette. Vasculature: Calcified plaques in the aortic arch. Bones/joints: Costal cartilage calcifications. Bones appear mildly demineralized. Chronic arthritic changes at the left shoulder. Spinal degenerative changes. Other findings: Overlying clothing artifacts. IMPRESSION: 1. Haziness of lower right and left heart borders is probably due to a prominent pericardial fat pad and pleural reflection, though airspace disease in the medial right middle lobe and in the left lingula would be additional considerations. There is better aeration of the both lungs today when compared with the prior chest x-ray. 2. No focal consolidation. 3. Cardiomegaly. No pulmonary vascular congestion. 4. Additional nonemergency and chronic findings as above.
[2022-04-27 18:08] LABS: Microscopic, Urine URINE MICROSCOPIC (MICROSCOPIC)
[2022-04-27 18:15] LABS: Appearance,Urine SL CLOUDY (Clear); Bilirubin,Urine Negative (Negative); Blood, Urine Negative (Negative); Color,Urine RED (Yellow); Glucose,Urine (UA) TRACE (Negative); Ketones,Urine TRACE (Negative); Leukocyte Esterase,Urine 2+ (Negative); Nitrate,Urine POSITIVE (Negative); Protein,Urine 2+ (Negative); Specific Gravity, Urine 1.025 (1.005-1.030)
[2022-04-27 18:17] LABS: Basophils # 0.1 K/mm3 (0-0.2); Basophils % 0.4 % (0.1-2.0); Eosinophils # 0.2 K/mm3 (0.0-0.4); Eosinophils % 1.4 % (0.1-12.0); Hemoglobin 13.2 g/dL (12.2-16.2); Lymphocytes % 9.2 % (10-50); Mean Corpuscular HGB Conc 32.2 g/dL (31.8-35.4); Mean Corpuscular Volume 102.3 fl (81-99); Mean Platelet Volume 8.9 fl (7.4-10.4); Monocytes # 0.7 K/mm3 (0.1-1.0); Monocytes % 6.6 % (1.7-9.3); Neutrophils # 9.1 K/mm3 (1.8-7.8); Neutrophils % 82.5 % (37.0-80.0); Platelet Count 223 K/mm3 (142-424); Red Cell Distribution Width 13.8 % (11.5-17.5)
[2022-04-27 19:04] LABS: Bacteria,Urine 1+ /lpf; Calcium Oxalate Crystals,Urine 1+ /lpf
== END ==
PROVIDERS: PCP Family Medicine; Visit Provider Family Medicine
DX: Z20.822 Contact with and (suspected) exposure to COVID-19 (principal); R30.0 Dysuria; B96.5 Pseudomonas (aeruginosa) (mallei) (pseudomallei) as the cause of diseases classified elsewhere; B96.29 Other Escherichia coli [E. coli] as the cause of diseases classified elsewhere
CPT/HCPCS: 36415; 71045; 81001; 85025; 87086; 87088; 87186; C9803; U0003; U0005

== ENCOUNTER 2022-04-30 12:45 | Outpatient (CLI) | payer MEDICARE, MEDICAID, SELFPAY ==
[2022-04-30 12:54] VITALS: BMI 28.3
[2022-04-30 13:00] VITALS: BP 155/68; PULSE 88; RESP 19; O2SAT 94
[2022-04-30 13:09] LABS: Basophils # 0.1 K/mm3 (0-0.2); Basophils % 0.9 % (0.1-2.0); Eosinophils # 0.4 K/mm3 (0.0-0.4); Eosinophils % 4.9 % (0.1-12.0); Hemoglobin 13.6 g/dL (12.2-16.2); Lymphocytes # 1.3 K/mm3 (0.7-4.5); Lymphocytes % 16.3 % (10-50); Mean Corpuscular HGB Conc 32.4 g/dL (31.8-35.4); Mean Corpuscular Hemoglobin 33.3 pg (27.0-31.2); Mean Corpuscular Volume 102.7 fl (81-99); Mean Platelet Volume 8.2 fl (7.4-10.4); Monocytes # 0.5 K/mm3 (0.1-1.0); Monocytes % 6.7 % (1.7-9.3); Neutrophils # 5.5 K/mm3 (1.8-7.8); Neutrophils % 71.2 % (37.0-80.0); Platelet Count 304 K/mm3 (142-424); Red Blood Count 4.09 M/mm3 (4.20-5.40); Red Cell Distribution Width 13.6 % (11.5-17.5); White Blood Count 7.7 K/mm3 (4.8-10.8)
[2022-04-30 13:16] LABS: Chloride 105 mmol/L (98-107); Potassium 3.7 mmoL/L (3.5-5.1); Sodium 141 mmol/L (136-145)
[2022-04-30 13:19] LABS: Alanine Aminotransferase 19 U/L (12-78); Albumin Level 3.5 g/dl (3.5-5.0); Albumin/Globulin Ratio 1.1 (1.1-1.8); Alkaline Phosphatase 93 U/L (38-126); Anion Gap 9.7 mEq/L (5-15); Aspartate Amino Transferase 23 U/L (14-36); Bilirubin,Total 0.4 mg/dl (0.2-1.3); Blood Urea Nitrogen 18 mg/dl (7-17); Carbon Dioxide 30 mmol/L (22.0-30.0); Creatinine Clearance Estimated 52 mL/min (50-200); Estimated Glomerular Filt Rate 60 ml/min (>60); GFR (African American) 72 ML/MIN (>60); Globulin 3.2 g/dL (1.3-3.2); Total Protein,Serum 6.7 g/dl (6.3-8.2)
[2022-04-30 13:20] LABS: Calcium 8.9 mg/dl (8.4-10.2); Glucose 114 mg/dl (74-100)
[2022-04-30 14:22] VITALS: BP 158/76; PULSE 87; RESP 18
== END 2022-04-30 14:22 | disposition home or self-care (01) ==
LOC: INF 12:46
PROVIDERS: PCP Family Medicine; Visit Provider Family Medicine
DX: N39.0 Urinary tract infection, site not specified (principal); R53.1 Weakness; E86.0 Dehydration
CPT/HCPCS: 80053; 85025; 96360; 96367; J1956

== ENCOUNTER 2022-05-12 13:05 | Day surgery (SDC) | payer MEDICARE, MEDICAID, SELFPAY ==
[2022-05-12 13:25] VITALS: BP 153/70; PULSE 93; RESP 18; TEMP 36.6; O2SAT 93; BMI 28.3
[2022-05-12 13:31] VITALS: BP 151/89; PULSE 87; RESP 18; O2SAT 97
[2022-05-12 13:33] VITALS: BP 151/89; PULSE 87; RESP 18; O2SAT 97
[2022-05-12 13:40] VITALS: BP 154/77; PULSE 89; RESP 18; O2SAT 93
--- NOTE | 2022-05-12 13:47 | P.PCN_ITS ---
Procedure Date: 05/12/22 Time: 14:00 Anesthesiologist:: Jim Ventura CRNA Complications:: None Pre-procedure Diagnosis:: Left sacroiliitis. Post-procedure Diagnosis:: Same. Indications for Procedure:: This patient is a pleasant 81-year-old female that comes to our clinic today for left sacroiliac joint injection. Patient suffered a fall recently and has been having increased pain over the left posterior hip. She has extreme point tenderness over the left SI joint. Patient was originally scheduled for right sacroiliac joint injection. However, today patient reports no pain on the right. All of her pain is on the left lumbar spine as well as left posterior hip area. She rates her pain /10 Procedure Details:: Procedure: Left sacroiliac injection under fluoroscopy Informed consent was obtained and the risk and benefits of the procedure were explained to the patient.~ The patient was taken to the procedure room and noninvasive monitors were placed including noninvasive blood pressure cuff and pulse oximeter.~ The patient was placed prone on the procedure table.~ The~ left hip was cleansed using Betadine as a cleansing solution.~ C-arm fluorosocpy was used to view the left SI joint.~ The skin and subcutaneous tissues were anesthetized using Lidocaine 1.5% and a 25-gauge needle.~ After this, a 22-gauge spinal needle was inserted under fluoroscopic guidance into the inferior aspect of the left SI joint.~ Omnipaque dye was injected and a good spread was seen throughout the joint.~ After this, approximately 5 mL of bupivacaine 0.25% and Depo-Medrol 40 mg was incrementally injected into the sacroiliac joint.~ The pat ient tolerated the procedure well with no complications.~ The patient was observed in the Pain Clinic for a period of 30-45 minutes, then discharged home neurologically intact.~ Plan and Disposition:: Patient was discharged without incident
== END 2022-05-12 13:40 | disposition home or self-care (01) ==
LOC: SC.PAINP 13:05
PROVIDERS: PCP Family Medicine; Visit Provider Nurse Anesthetist, Certified Registered
DX: M46.1 Sacroiliitis, not elsewhere classified (principal)
CPT/HCPCS: 27096; G0260; J1030

== ENCOUNTER → 2022-06-03 15:36 | Outpatient (POV) | payer MEDICARE, MEDICAID, SELFPAY ==
[2022-06-03 15:51] VITALS: BP 140/87; PULSE 88; RESP 18; O2SAT 96; BMI 28.3
--- NOTE | 2022-06-03 16:02 | EXP.PAIN.SOA ---
[facility] Pain Management SOAP Note Subjective:: Patient is a pleasant 81-year-old female who presents today for follow-up of left SI injection on 05/12/2022. We are currently treating the patient for degenerative disc disease of lumbar spine with lumbar radiculopathy symptoms, right greater trochanteric bursitis, sacroiliitis, osteoarthritis bilateral knees. Today she states that she has had at least 60% improvement in her symptoms along her left SI and feels like it has continued to help. she rates her pain a 8 out of 10 and states it is in her low back and radiating down both her lower extremities that radiates all the way down to her ankles. Patient states she frequently has tingling and numbness that she does use her compounding cream on to provide significant improvement however short-term. Patient denies any new trauma or injury. Patient denies any change location or type of pain she experiences. Patient has had multiple injections that have provided significant improvement including epidurals. Patient is currently managed with gabapentin 300 mg 4 times a day and Percocet 10 mg twice a day from Dr. Campos's office. Patient denies any side effects from this medication. She states this medication does help manage some of her pain symptoms. Her Jacob is [id number]. It has been reviewed and appropriate. Review of Systems: General: No recent weight changes, no fever, no sleep disturbances Respiratory: No cough, no shortness of air, no recurring pulmonary infections Cardiovascular/peripheral vascular: No chest pain, no palpitations, no edema, no shortness of breath Gastrointestinal: No new onset incontinence, normal bowel movements reported Genitourinary: No new onset incontinence Musculoskeletal: Low back pain, leg pain Psychiatric: [Normal mood/affect] Neurological: [Denies weakness in extremities], [denies balance issues] Objective:: Physical Exam: General: Alert and oriented x3, no acute distress, pleasant and cooperative Lungs: Respirations even and unlabored, symmetrical chest expansion Eyes: PERRL Musculoskeletal: Flexion and extension of lumbar [spine] somewhat guarded secondary to pain, [antalgic gait noted] Neurological: Speech clear, no gross sensory deficit Assessment:: Degenerative disc disease of lumbar spine with lumbar radiculopathy symptoms, right greater trochanteric bursitis, sacroiliitis, osteoarthritis bilateral knees Plan:: She didPatient is experiencing significant pain in her low back that radiates down her bilateral lower extremities to her ankles. Have limited range of motion of her lumbar spine during today's visit. I have discussed with the patient that she may benefit from a lumbar epidural steroid injection. Risk and benefits were discussed with the patient. She would like to proceed forward with this plan of care. She is not currently on any blood thinners. I will prescribe the patient a muscle relaxer, tizanidine 4 mg 3 times daily as needed and provide a 30-day supply of this medication. Following this next injection we may look into getting updated lumbar imaging as her last MRI was done in 2020. We will schedule the patient for a lumbar epidural steroid injection L5-S1. Patient has been instructed to contact the clinic with any concerns before the next appointment. Dr. Gonzalez has reviewed this note and agrees with this plan of care. This note was dictated using voice recognition software and make contain errors or omissions. [facility] Disclaimer: The information contained in this section may have been updated after the patient was seen, as this information can be updated by other users. Medical History History of seizure Family History Other No significant family history Social History Smoking Status: Never smoker alcohol intake:
== END | disposition home or self-care (01) ==
PROVIDERS: PCP Family Medicine; Visit Provider Nurse Practitioner Family
DX: M51.16 Intervertebral disc disorders with radiculopathy, lumbar region (principal); M46.1 Sacroiliitis, not elsewhere classified; M70.61 Trochanteric bursitis, right hip; M17.0 Bilateral primary osteoarthritis of knee
CPT/HCPCS: 99212; G0463

== ENCOUNTER 2022-06-09 13:36 | Day surgery (SDC) | payer MEDICARE, MEDICAID, SELFPAY ==
[2022-06-09 13:42] VITALS: BP 159/79; PULSE 83; RESP 18; TEMP 36.6; O2SAT 94; BMI 27.4
[2022-06-09 13:50] VITALS: BP 190/69; PULSE 85; RESP 18; O2SAT 98
[2022-06-09 13:53] VITALS: BP 159/79; PULSE 83; RESP 18; O2SAT 95
--- NOTE | 2022-06-09 14:04 | EXP.PAIN.PRO ---
Procedure Date: 06/09/22 Time: 13:30 Anesthesiologist:: Jim Ventura CRNA Complications:: None Pre-procedure Diagnosis:: Degenerative disc disease lumbar spine multilevels. Lumbar radiculopathy. Multilevel lumbar disc bulge Post-procedure Diagnosis:: Same. Indications for Procedure:: Patient is a very pleasant 81-year-old female that comes our clinic today for lumbar epidural steroid injection L5-S1 level. Patient reports low back pain as well as bilateral hip and leg radicular symptoms. She rates her low back pain 7/10. Procedure Details:: Procedure: Lumbar epidural steroid injection under fluoroscopy Informed consent was obtained and the risks and benefits of the procedure were explained to the patient. The patient was taken to the procedure room and noninvasive monitors placed, including noninvasive blood pressure cuff and pulse oximeter. The back was viewed using C-arm Fluoroscopy and prepped using Chloraprep as a cleansing solution and the L4-L5 interspace was palpated. Skin and subcutaneous tissues were anesthetized using lidocaine 1.5% and a 25-gauge needle. After this, an 18-gauge Touhy epidural needle was placed into the L4-L5 interspace and advanced using fluoroscopic guidance and loss of resistance to air until the epidural space was encountered. After confirmation of needle placement in the epidural space, with dye, a solution containing normal saline, 3 mL and Depo-Medrol 80 mg were incrementally injected into the lumbar epidural space. The patient tolerated the procedure well with no complications. The patient was observed in the Pain Clinic and then discharged home neurologically intact. Plan and Disposition:: Patient was discharged without incident.
== END 2022-06-09 13:53 | disposition home or self-care (01) ==
LOC: SC.PAINP 13:37
PROVIDERS: PCP Family Medicine; Visit Provider Nurse Anesthetist, Certified Registered
DX: M51.16 Intervertebral disc disorders with radiculopathy, lumbar region (principal)
CPT/HCPCS: 62323; J1040

== ENCOUNTER → 2022-06-30 13:47 | Outpatient (POV) | payer MEDICARE, MEDICAID, SELFPAY ==
[2022-06-30 14:49] VITALS: BP 199/86; PULSE 86; RESP 18; O2SAT 97; BMI 28.3
--- NOTE | 2022-06-30 15:25 | EXP.PAIN.SOA ---
[facility] Pain Management SOAP Note Subjective:: Patient is a pleasant 81-year-old female who presents today for follow-up of lumbar epidural steroid injection at L4-L5 on 06/09/2022. We are currently treating the patient for degenerative disc disease of lumbar spine with lumbar radiculopathy symptoms, right greater trochanteric bursitis, sacroiliitis, osteoarthritis bilateral knees. Today she states she had approximately 50 to 60% improvement following this injection lasting around 3 weeks. Today she rates her pain a 8 out of 10. Patient denies any new trauma or injury. Patient denies any change location or type of pain she experiences. Patient does state that she continues to have pain in her back up around the bottom of her bra strap that radiates down to her buttocks as well as right SI pain that goes into her right leg. Patient is currently managed with oxycodone 10 mg twice a day, lorazepam 1 mg twice a day and gabapentin 300 mg 4 times a day from an outside provider. Patient denies any side effects from these medications. She states these medications do help with her pain symptoms. She is also being given compounding cream that provides additional improvement. Her Jacob is [id number]. Its been reviewed and appropriate. Review of Systems: General: No recent weight changes, no fever, no sleep disturbances Respiratory: No cough, no shortness of air, no recurring pulmonary infections Cardiovascular/peripheral vascular: No chest pain, no palpitations, no edema, no shortness of breath Gastrointestinal: No new onset incontinence, normal bowel movements reported Genitourinary: No new onset incontinence Musculoskeletal: Low back pain, right leg pain Psychiatric: [Normal mood/affect] Neurological: [Denies weakness in extremities], [denies balance issues] Objective:: Physical Exam: General: Alert and oriented x3, no acute distress, pleasant and cooperative Lungs: Respirations even and unlabored, symmetrical chest expansion Eyes: PERRL Musculoskeletal: Flexion and extension of lumbar [spine] somewhat guarded secondary to pain, [antalgic gait noted] Neurological: Speech clear, no gross sensory deficit [address] [facility] [address] [place] [address] Magnetic Resonance Report Signed Patient: Maura Carrero MR#: [id number] : 1940 Acct:[id number] Age/Sex: 80 / F ADM Date: 03/05/21 Loc: RAD Attending Dr: Triston Campos MD Ordering Physician: Triston Campos MD Date of Service: 03/05/21 Procedure(s): MR lumbar spine wo con Accession Number(s): [id number] cc: Timothy Oliver MD; Triston Campos MD~ PROCEDURE:? MR LUMBAR SPINE WO CON CLINICAL INDICATION:? LUMBAGO WITH SCIATICA COMPARISON:? CR XR LUMBAR SPINE MIN 4V from 03/09/2019 MR MR CERVICAL SPINE WO CON from 02/03/2021 TECHNIQUE:? Standard multiplanar multiecho sequences are performed without contrast. 3-D MIP and myelographic images are also rendered and reviewed FINDINGS: The spinal cord ends at the L2 level. Endplate osteophytes are present from L1-S1 anteriorly and laterally. There is multilevel degenerative disc disease with bulging disc and canal stenosis as outlined below. T10-T11: Facet and ligamentum hypertrophy with bilateral lateral recess narrowing and canal stenosis T11-T12: Degenerative disc disease with mild bulging disc with facet and ligamentum hypertrophy and canal stenosis T12-L1: Degenerative disc disease with bulging disc along with facet and ligamentum hypertrophy with canal stenosis. There is wedging of the anterior aspect of L1 with loss of height anteriorly of approximately 45 percent which appears chronic. L1-L2: Degenerative disc disease with bulging disc with facet and ligamentum hypertrophy and canal stenosis with mild impingement upon the anterior aspect of the cord L2-L3: Degenerative disc disease with bulging disc along facet and li
== END ==
PROVIDERS: PCP Family Medicine; Visit Provider Nurse Practitioner Family
DX: M51.16 Intervertebral disc disorders with radiculopathy, lumbar region (principal); M70.61 Trochanteric bursitis, right hip; M46.1 Sacroiliitis, not elsewhere classified; M17.0 Bilateral primary osteoarthritis of knee
CPT/HCPCS: 99212; G0463

== ENCOUNTER 2022-07-03 12:18 | Day surgery (SDC) | payer MEDICARE, MEDICAID, SELFPAY ==
[2022-07-03 12:19] VITALS: BP 191/86; PULSE 88; RESP 18; TEMP 36.6; O2SAT 95; BMI 28.3
--- NOTE | 2022-07-03 12:36 | EXP.PAIN.PRO ---
Procedure Date: 07/03/22 Time: 13:00 Anesthesiologist:: Jim Ventura CRNA Complications:: None Pre-procedure Diagnosis:: Degenerative disc disease lumbar spine multilevel severe lumbar radiculopathy. Right sacroiliitis Post-procedure Diagnosis:: Same. Indications for Procedure:: Pleasant 81-year-old female comes our clinic today who is unable to access the fluoroscopy table. Epidural was given with the patient in the sitting position. L1-2. She did very well. She complains of right lumbar back pain right posterior hip pain. Right leg radicular symptoms. Patient will return in a couple of weeks for right sacroiliac joint injection if needed. She had discussed this at her last office visit with the nurse practitioner. Procedure Details:: Procedure: Lumbar epidural steroid injection under fluoroscopy Informed consent was obtained and the risks and benefits of the procedure were explained to the patient. The patient was taken to the procedure room and noninvasive monitors placed, including noninvasive blood pressure cuff and pulse oximeter. The back was viewed using C-arm Fluoroscopy and prepped using Chloraprep as a cleansing solution and the L1-2 interspace was palpated. Skin and subcutaneous tissues were anesthetized using lidocaine 1.5% and a 25-gauge needle. After this, an 18-gauge Touhy epidural needle was placed into the L1-2 interspace and advanced using fluoroscopic guidance and loss of resistance to air until the epidural space was encountered. After confirmation of needle placement in the epidural space, with dye, a solution containing normal saline, 3 mL and Depo-Medrol 80 mg were incrementally injected into the lumbar epidural space. The patient tolerated the procedure well with no complications. The patient was observed in the Pain Clinic and then discharged home neurologically intact. Plan and Disposition:: Patient was discharged without incident
[2022-07-03 12:40] VITALS: BP 191/77; PULSE 84; RESP 18; O2SAT 95
== END 2022-07-03 12:40 | disposition home or self-care (01) ==
PROVIDERS: PCP Family Medicine; Visit Provider Nurse Anesthetist, Certified Registered
DX: M51.16 Intervertebral disc disorders with radiculopathy, lumbar region (principal); M46.1 Sacroiliitis, not elsewhere classified
CPT/HCPCS: 62323; J1040

== ENCOUNTER 2022-07-14 12:16 | Day surgery (SDC) | payer MEDICARE, MEDICAID, SELFPAY ==
[2022-07-14 12:30] VITALS: BP 147/99; PULSE 88; RESP 18; TEMP 36.1; O2SAT 93; BMI 28.3
--- NOTE | 2022-07-14 12:36 | EXP.PAIN.PRO ---
Procedure Date: 07/14/22 Time: 12:30 Anesthesiologist:: Jim Ventura CRNA Complications:: None Pre-procedure Diagnosis:: Right sacroiliitis. Post-procedure Diagnosis:: Same. Indications for Procedure:: Very pleasant 81-year-old female that comes our clinic today for right sacroiliac joint injection. Patient ambulates to some degree at home only. She presents our clinic today in a wheelchair. She rates her pain 7/10. She is status post lumbar epidural steroid injection and reports significant improvement terms of her bilateral radicular symptoms. Procedure Details:: Procedure: Right sacroliliac joint injection under fluoroscopy Informed consent was obtained and the risk and benefits of the procedure were explained to the patient.~ The patient was taken to the procedure room and noninvasive monitors were placed including noninvasive blood pressure cuff and pulse oximeter.~ The patient was placed prone on the procedure table.~ The~ right hip was cleansed using Betadine as a cleansing solution.~ C-arm fluorosocpy was used to view the right SI joint.~ The skin and subcutaneous tissues were anesthetized using Lidocaine 1.5% and a 25-gauge needle.~ After this, a 22-gauge spinal needle was inserted under fluoroscopic guidance into the inferior aspect of the right SI joint.~ Omnipaque dye was injected and a good spread was seen throughout the joint.~ After this, approximately 5 mL of bupivacaine 0.25% and Depo-Medrol 40 mg was incrementally injected into the sacroiliac joint.~ The patient tolerated the procedure well with no complications.~ The patient was observed in the Pain Clinic, then discharged home neurologically intact.~ Plan and Disposition:: Patient was discharged without incident
[2022-07-14 12:40] VITALS: BP 177/81; PULSE 83; RESP 18; O2SAT 93
== END 2022-07-14 12:40 | disposition home or self-care (01) ==
PROVIDERS: PCP Family Medicine; Visit Provider Nurse Anesthetist, Certified Registered
DX: M46.1 Sacroiliitis, not elsewhere classified (principal)
CPT/HCPCS: 27096; G0260; J1040

== ENCOUNTER → 2022-07-27 12:59 | Outpatient (POV) | payer MEDICARE, MEDICAID, SELFPAY ==
[2022-07-27 13:35] VITALS: BP 171/82; PULSE 85; RESP 18; O2SAT 98; BMI 28.3
--- NOTE | 2022-07-27 13:48 | EXP.PAIN.SOA ---
[facility] Pain Management SOAP Note Subjective:: Patient is a pleasant 81-year-old female who presents today for follow-up of right SI injection on 07/14/2022. We are currently treating the patient for degenerative disc disease of lumbar spine with lumbar radiculopathy symptoms, sacroiliitis, greater trochanteric bursitis, osteoarthritis bilateral knees. Today the patient states she has had at least 80% improvement along her right SI. Patient does rate her pain an 8 out of 10 and states this pain is more so in her mid back. Patient describes it as a aching, throbbing sensation that is worse with increased activity. Patient states it does seem more prominent when she is getting up from a sitting position. Patient denies any new trauma or injury. Patient denies any change to location or type of pain she experiences. Patient is currently managed with lorazepam 1 mg twice a day, oxycodone 10 mg twice a day and gabapentin 300 mg 4 times a day from her primary care doctor. Patient denies any side effects from this medication. She states this medication does help manage some of her pain symptoms. Her Jacob is [id number]. Its been reviewed and appropriate. Review of Systems: General: No recent weight changes, no fever, no sleep disturbances Respiratory: No cough, no shortness of air, no recurring pulmonary infections Cardiovascular/peripheral vascular: No chest pain, no palpitations, no edema, no shortness of breath Gastrointestinal: No new onset incontinence, normal bowel movements reported Genitourinary: No new onset incontinence Musculoskeletal: Mid back pain Psychiatric: [Normal mood/affect] Neurological: [Denies weakness in extremities], [denies balance issues] Objective:: Physical Exam: General: Alert and oriented x3, no acute distress, pleasant and cooperative Lungs: Respirations even and unlabored, symmetrical chest expansion Eyes: PERRL Musculoskeletal: Flexion and extension of thoracic, lumbar [spine] somewhat guarded secondary to pain, [antalgic gait noted] Neurological: Speech clear, no gross sensory deficit T12-L1: Degenerative disc disease with bulging disc along with facet and ligamentum hypertrophy with canal stenosis. There is wedging of the anterior aspect of L1 with loss of height anteriorly of approximately 45 percent which appears chronic. Assessment:: Degenerative disc disease of lumbar spine with lumbar radiculopathy symptoms, greater trochanteric bursitis, sacroiliitis, osteoarthritis bilateral knees, hip pain Plan:: Patient is experiencing significant pain in her mid back. Patient did have limited range of motion of her thoracic and lumbar spine during today's visit. Her previous imaging did show that she had a wedging of her anterior L1 with a loss of height of approximately 45%. This did appear to be a chronic finding. I have discussed with the patient that she may benefit from a diagnostic thoracic epidural at T12-L1. Risk and benefits were discussed with the patient. She would like to proceed forward with this plan of care. We will schedule her for a diagnostic T THELMA T12-L1. Patient has been instructed to contact the clinic with any concerns before the next appointment. Dr. Gonzalez has reviewed this note and agrees with this plan of care. This note was dictated using voice recognition software and make contain errors or omissions. [facility] Disclaimer: The information contained in this section may have been updated after the patient was seen, as this information can be updated by other users. Medical History History of seizure Family History Other No significant family history Social History Smoking Status: Never smoker alcohol intake: never substance use type: denies use current occupational status: retired Travel in the last 8 weeks:
== END ==
PROVIDERS: PCP Family Medicine; Visit Provider Nurse Practitioner Family
DX: M51.16 Intervertebral disc disorders with radiculopathy, lumbar region (principal); M46.1 Sacroiliitis, not elsewhere classified; M70.60 Trochanteric bursitis, unspecified hip; M25.559 Pain in unspecified hip; M17.10 Unilateral primary osteoarthritis, unspecified knee
CPT/HCPCS: 99212; G0463

== ENCOUNTER 2022-08-04 12:04 | Day surgery (SDC) | payer MEDICARE, MEDICAID, SELFPAY ==
[2022-08-04 12:20] VITALS: BP 154/75; PULSE 92; RESP 18; TEMP 36.3; O2SAT 95; BMI 25.7
[2022-08-04 12:30] VITALS: BP 145/84; PULSE 92; RESP 18; O2SAT 95
--- NOTE | 2022-08-04 12:45 | P.PCN_ITS ---
Procedure Date: 08/04/22 Time: 12:30 Anesthesiologist:: Jim Ventura CRNA Complications:: None Pre-procedure Diagnosis:: Degenerative disc disease thoracic spine. Thoracic radiculopathy Post-procedure Diagnosis:: Same. Indications for Procedure:: Patient is a pleasant 81-year-old female that comes our clinic today for a T12- L1 thoracic epidural steroid injection. Patient unable to position herself on the fluoroscopy table. The injection will be done without fluoroscopy guidance. Patient complains of thoracic back pain with bilateral thoracic radicular symptoms at times. Procedure Details:: Procedure:Thoracic epidural steroid injection under fluoroscopy Informed consent was obtained and the risks and benefits of the procedure were explained to the patient. The patient was taken to the procedure room and noninvasive monitors placed, including noninvasive blood pressure cuff and pulse oximeter. The back was viewed using C-Arm fluoroscopy and prepped using Betadine as a cleansing solution and the T12-L1 interspace was palpated. Skin and subcutaneous tissues were anesthetized using lidocaine 1.5% and a 25-gauge needle. After this, an 18-gauge Touhy epidural needle was placed into the T12-L1 interspace and advanced using fluoroscopic guidance and loss of resistance to air until the epidural space was encountered. After confirmation of needle placement in the epidural space, with dye, a solution containing lidocaine 1.5%, 4 mL and Depo-Medrol 80 mg were incrementally injected into the thoracic epidural space. The patient tolerated the procedure well with no complications. The patient was observed in the Pain Clinic and then discharged home neurologically intact. Plan and Disposition:: Patient was discharged without incident.
== END 2022-08-04 12:30 | disposition home or self-care (01) ==
LOC: SC.PAINP 12:04
PROVIDERS: PCP Family Medicine; Visit Provider Nurse Anesthetist, Certified Registered
DX: M51.14 Intervertebral disc disorders with radiculopathy, thoracic region (principal)
CPT/HCPCS: 62321; J1040

== ENCOUNTER 2022-08-20 02:44 | Observation (INO) | payer MEDICARE, MEDICAID, SELFPAY ==
[2022-08-20] VITALS (13 sets, daily range): BP systolic 140–189; BP diastolic 65–97; PULSE 77–98; RESP 16–20; TEMP 36.6–37.3; O2SAT 90–95; BMI 36.6; BMI 34.2
--- NOTE | 2022-08-20 02:45 | CT_ITS ---
PROCEDURE INFORMATION: Exam: CT Head Without Contrast Exam date and time: 08/20/2022 3:09 AM Age: 81 years old Clinical indication: Other: Seizure activity TECHNIQUE: Imaging protocol: Computed tomography of the head without contrast. Radiation optimization: All CT scans at this facility use at least one of these dose optimization techniques: automated exposure control; mA and/or kV adjustment per patient size (includes targeted exams where dose is matched to clinical indication); or iterative reconstruction. Other protocol: This patient has received 0 known CTs and 0 known cardiac nuclear medicine studies in the 12 months prior to the current study. COMPARISON: CT HEAD/BRAIN WO CON 06/30/2021 3:11 PM FINDINGS: Brain: No acute infarct, hemorrhage, or obvious mass lesion. Age appropriate diffuse cerebral volume loss. Mild chronic white matter changes, likely to be chronic small vessel ischemic changes. Cerebral ventricles: No ventriculomegaly. Paranasal sinuses: Visualized sinuses are unremarkable. No fluid levels. Mastoid air cells: Visualized mastoid air cells are well aerated. Bones/joints: Unremarkable. No acute fracture. Soft tissues: Unremarkable. IMPRESSION: No acute intracranial abnormality.
--- NOTE | 2022-08-20 02:45 | XR_ITS ---
PROCEDURE INFORMATION: Exam: XR Chest Exam date and time: 08/20/2022 3:11 AM Age: 81 years old Clinical indication: Shortness of breath; Additional info: R/O pna TECHNIQUE: Imaging protocol: Radiologic exam of the chest. Views: 1 view. COMPARISON: CR XR CHEST PORTABLE 04/27/2022 5:10 PM FINDINGS: Limitations: Evaluation limited by patient body habitus. Lungs: Low lung volumes with mild diffuse interstitial prominence, nonspecific. No consolidation or overt pulmonary edema. Pleural spaces: Unremarkable. No pleural effusion. No pneumothorax. Heart/Mediastinum: Stable cardiomegaly. Bones/joints: No acute osseous abnormality. IMPRESSION: Low lung volumes with mild diffuse interstitial prominence, nonspecific.
[2022-08-20 02:53] LABS: Basophils # 0.1 K/mm3 (0-0.2); Basophils % 0.7 % (0.1-2.0); Eosinophils # 0.2 K/mm3 (0.0-0.4); Eosinophils % 1.9 % (0.1-12.0); Hematocrit 41.2 % (37.0-47.0); Hemoglobin 13.7 g/dL (12.2-16.2); Lymphocytes # 1.8 K/mm3 (0.7-4.5); Lymphocytes % 18.3 % (10-50); Mean Corpuscular HGB Conc 33.1 g/dL (31.8-35.4); Mean Corpuscular Hemoglobin 32.9 pg (27.0-31.2); Mean Corpuscular Volume 99.3 fl (81-99); Monocytes # 0.5 K/mm3 (0.1-1.0); Monocytes % 4.7 % (1.7-9.3); Neutrophils # 7.2 K/mm3 (1.8-7.8); Neutrophils % 74.4 % (37.0-80.0); Platelet Count 223 K/mm3 (142-424); Red Blood Count 4.15 M/mm3 (4.20-5.40); White Blood Count 9.7 K/mm3 (4.8-10.8)
[2022-08-20 03:00] LABS: Coronavirus 19, PCR Not Detected (NotDetected); Influenza A, PCR Not Detected (NotDetected); Influenza B, PCR Not Detected (NotDetected)
[2022-08-20 03:04] LABS: Alanine Aminotransferase 17 U/L (12-78); Albumin Level 3.9 g/dl (3.5-5.0); Albumin/Globulin Ratio 1.3 (1.1-1.8); Alkaline Phosphatase 76 U/L (38-126); Aspartate Amino Transferase 24 U/L (14-36); Bilirubin,Total 0.7 mg/dl (0.2-1.3); Blood Urea Nitrogen 15 mg/dl (7-17); Calcium 8.9 mg/dl (8.4-10.2); Carbon Dioxide 31 mmol/L (22.0-30.0); Chloride 102 mmol/L (98-107); Creatinine Clearance Estimated 61 mL/min (50-200); Estimated Glomerular Filt Rate 60 ml/min (>60); GFR (African American) 72 ML/MIN (>60); Glucose 155 mg/dl (74-100); Sodium 138 mmol/L (136-145); Total Protein,Serum 6.9 g/dl (6.3-8.2)
--- NOTE | 2022-08-20 03:04 | PC.NURSE ---
pt going to CT
[2022-08-20 03:14] LABS: Lactic Acid 2.1 mmol/L (0.7-2.1)
--- NOTE | 2022-08-20 03:15 | PC.NURSE ---
Pt back from CT
--- NOTE | 2022-08-20 03:18 | HMH.EDSEIZ ---
Discharge Plan Disposition Patient Disposition: Admitted as Observation Chief Complaint: Seizure Prescriptions Prescriptions: No Action lorazepam 0.5 mg tablet 0.5 mg PO TID Label Comments: TAKE ONE TABLET BY MOUTH THREE TIMES DAILY NEEDED MAY CAUSE DROWSINESS irbesartan 150 mg tablet 150 mg PO DAILY gabapentin 300 mg capsule 600 mg PO BID Label Comments: TAKE TWO CAPSULES BY MOUTH TWICE DAILY MAY CAUSE DROWSINESS levothyroxine 25 mcg tablet 25 mcg PO DAILY loratadine 10 mg tablet 10 mg PO DAILY Label Comments: TAKE ONE TABLET BY MOUTH EVERY DAY mirabegron 50 MG tablet extended release 24 hr 50 mg PO DAILY celecoxib 100 MG capsule 100 mg PO DAILY meclizine 25 MG tablet 25 mg PO BIDP PRN (Reason: Vertigo) esomeprazole magnesium 40 MG capsule,delayed release(DR/EC) 40 mg PO DAILY montelukast 10 MG tablet 10 mg PO DAILY duloxetine 60 MG capsule,delayed release(DR/EC) 60 mg PO DAILY linaclotide 145 MCG capsule 145 mcg PO DAILY alendronate 70 MG tablet 70 mg PO WEEKLY docusate sodium 250 MG capsule 250 mg PO BIDP PRN (Reason: Constipation) fluticasone propionate 16 GM spray,suspension 1 spray NS DAILY Rx Instructions: 1 spray each nostril oxycodone 10 MG tablet 10 mg PO BID MDD chronic pain cholecalciferol (vitamin D3) 125 MCG capsule 5,000 unit PO DAILY cyanocobalamin (vitamin B-12) 500 MCG tablet,disintegrating 500 mcg SL DAILY furosemide 20 mg tablet 20 mg PO DAILY PRN (Reason: diuretic) tizanidine 4 mg tablet 4 mg PO Q8H PRN (Reason: muscle spasticity) Qty: 90 0RF brivaracetam 50 mg tablet 75 mg PO DAILY Discharge ED Provider: Su (ED)Nick Seizures HPI General Chief Complaint: Seizure Stated Complaint: Seizure Time Seen by Provider: 08/20/22 03:19 Mode of Arrival: EMS Source of Information: EMS Limitations: Altered Mental Status Description of Symptoms (Recalled from ER Triage Doc. by RN): Pt brought in via EMS for seizure like activity. EMS says family reports up to 10 mins long. When EMS arrived, pt was no longer seizing but they do report she was postictal. Pt did have episode of incontinence. Pt was able to answer questions appropriatly by arrival. History of Present Illness HPI Narrative: pt with long hx of sz with last sz about 1 yr ago with sz tonight and also in the ed - has been compliant with meds MD complaint: seizure Onset (ago): hour(s) Description of Episode: tonic-clonic movement, bladder incontinence and post-event confusion Witnessed: yes - by bystander Trauma: No Seizure History: known seizure disorder Place: home Possible Precipitating Event: none Associated symptoms: denies other symptoms Treatments prior to arrival: none Related Data Home Medications Medication Instructions Recorded Confirmed celecoxib 100 mg capsule 100 mg PO DAILY Arthritis 01/02/21 08/20/22 duloxetine 60 mg capsule,delayed 60 mg PO DAILY Depression 01/02/21 08/20/22 release esomeprazole magnesium 40 mg 40 mg PO DAILY acid reflux 01/02/21 08/20/22 capsule,delayed release linaclotide 145 mcg capsule 145 mcg PO DAILY irritable bowel 01/02/21 08/20/22 syndrome meclizine 25 mg tablet 25 mg PO BIDP PRN Vertigo 01/02/21 08/20/22 mirabegron 50 mg tablet,extended 50 mg PO DAILY overactive bladder 01/02/21 08/20/22 release 24 hr alendronate 70 mg tablet 70 mg PO WEEKLY Osteoporosis 01/03/21 08/20/22 cholecalciferol (vitamin D3) 125 5,000 unit PO DAILY Supplement 01/03/21 08/20/22 mcg (5,000 unit) capsule cyanocobalamin (vitamin B-12) 500 500 mcg SL DAILY Supplement 01/03/21 08/20/22 mcg disintegrating tablet,sublingual docusate sodium 250 mg capsule 250 mg PO BIDP PRN Constipation 01/03/21 08/20/22 oxycodone 10 mg tablet 10 mg PO BID Pain 01/03/21 08/20/22 gabapentin 300 mg capsule 600 mg PO BID nerve pain 01/16/21 08/20/22 l
--- NOTE | 2022-08-20 03:23 | PC.NURSE ---
Pt's daughter adds that pt has been recently treated for a UTI and that the past few days the pt has been talking out of her head . updated on this information at this time.
[2022-08-20 03:30] LABS: Microscopic, Urine URINE MICROSCOPIC (MICROSCOPIC)
[2022-08-20 03:35] LABS: Appearance,Urine CLEAR (Clear); Bilirubin,Urine Negative (Negative); Blood, Urine Negative (Negative); Color,Urine YELLOW (Yellow); Glucose,Urine (UA) Negative (Negative); Ketones,Urine Negative (Negative); Leukocyte Esterase,Urine Negative (Negative); Nitrate,Urine Negative (Negative); PH,Urine 7.5 (5.0-8.5); Protein,Urine Negative (Negative); Specific Gravity, Urine 1.015 (1.005-1.030); Urobilinogen,Urine 0.2 EU/dl (0.2)
[2022-08-20 03:39] LABS: Bacteria,Urine Trace /lpf; RBC,Urine Occasional #/hpf (0-3)
--- NOTE | 2022-08-20 04:50 | PC.NURSE ---
Dr. Lyles paged at this time
--- NOTE | 2022-08-20 04:58 | PC.NURSE ---
WILLY WALLACE speaking with Dr. Lyles at this time
[2022-08-20 07:01] LABS: Reflex Lactic Add Lactic Reflex
[2022-08-20 07:37] LABS: Lactic Acid Follow Up (RFLX 1) 1.9 mmol/L (0.7-2.1)
--- NOTE | 2022-08-20 07:57 | HMH.PHAINT1 ---
Pharmacy Intervention Comments: Medication reconciliation completed utilizing external fill history and patient interview
--- NOTE | 2022-08-20 08:36 | PC.NURSE ---
0836 Dr. Campos at bedside.
--- NOTE | 2022-08-20 08:37 | EXP.HP ---
History of Present Illness *Admission Date: 08/20/22 *Reason for visit:: seizure *History of present illness: Ms. Carrero is an 81-year-old female with a history of seizure disorder. Her family states over the past few weeks she has been fighting a urinary tract infection and has been on 2 different antibiotics. They state she has been talking out of her head and shuffling around the house very confused. Her daughter states she felt bad this whole week and just complained of fatigue. She had decreased urination and her legs have been swelling. She states last night she had an accident with her bowels and her daughter had just gotten her cleaned up when she appeared to become very clammy and sweaty. She laid down and stated she was tired and her daughter saw her on the monitor began to seize. The seizure lasted 4 to 5 minutes and she became postictal. Her daughter states EMS arrived and transported her to the hospital. She seemed to return to normal function while in the ER. Her daughter states the ER physician was getting ready to send her home when she had another seizure and had to receive Ativan. She was admitted at that point due to recurrent seizure. Prior to this, it has been almost a year since she has had one. Her daughter states that she has slept most of the night. The patient denies any pain this morning. [facility] Disclaimer: The information contained in this section may have been updated after the patient was seen, as this information can be updated by other users. Medical History (Updated 08/20/22 @ 09:12 by Triston Campos MD) Anxiety Chronic low back pain Former smoker Frequent UTI Heart murmur HTN (hypertension) Hypothyroid Seizures Spinal stenosis Spinal stenosis in cervical region Surgical History (Updated 08/20/22 @ 08:42 by SUSIE Abel) No pertinent past surgical history Family History Family history of cancer Family history of heart attack Social History Smoking Status: Former smoker alcohol intake: never substance use type: denies use current occupational status: retired Travel in the last 8 weeks: None caregiver/support person: Yes (daughter) household members: family housing: house lives independently: No marital status: education level: middle school current occupational exposures/hazards: No caffeine: Yes special lion needs: No agree to transfusion: No Review of Systems Constitutional Constitutional: Reports fatigue, Denies headache(s) and Denies weakness Eyes Eyes: Denies blurry vision and Denies diplopia ENT Ears, Nose, Mouth, and Throat: Denies headache(s), Denies nasal congestion, Denies sore throat and Denies vertigo *Cardiovascular Cardiovascular: Denies chest pain, Denies dyspnea and Denies leg edema *Respiratory Respiratory: Denies cough and Denies dyspnea *Gastrointestinal Gastrointestinal: Denies abdominal pain, Denies loose stools, Denies nausea and Denies vomiting *Genitourinary Genitourinary: Denies dysuria *Musculoskeletal Musculoskeletal: Denies arthralgias and Denies myalgias *Neurologic Neurologic: Denies headache(s), Denies vertigo and Denies weakness Endocrine Endocrine: Reports fatigue Meds Home Medications and Allergies Home Medications Medication Instructions Recorded Confirmed Type celecoxib 100 mg capsule 100 mg PO DAILY Arthritis 01/02/21 08/20/22 History duloxetine 60 mg capsule,delayed 60 mg PO DAILY Depression 01/02/21 08/20/22 History release esomeprazole magnesium 40 mg 40 mg PO DAILY acid reflux 01/02/21 08/20/22 History capsule,delayed release meclizine 25 mg tablet 25 mg PO BIDP PRN Motion Sickness 01/02/21 08/20/22 History mirabegron 50 mg tablet,extended 50 mg PO DAILY overactive bladder 01/02/21 08/20/22 History release 24 hr alendronate 70 mg tablet 70 mg PO WEEKLY Osteoporosis
--- NOTE | 2022-08-20 09:08 | XR_ITS ---
FINAL REPORT CLINICAL HISTORY: delirium COMPARISON: 08/20/2022 FINDINGS: A single PA view of the chest was obtained. The cardiac and mediastinal silhouettes are within normal limits. There is been interval improvement in the lung volumes. Interstitial opacities have improved. There is bibasilar airspace disease, may represent atelectasis versus pneumonia. Small effusion is not excluded. There is no effusion or pneumothorax. No acute osseous abnormality is identified. IMPRESSION: Bibasilar atelectasis versus pneumonia. Small effusion not excluded. Reviewed, Interpreted and Dictated by Natalie Dia MD Transcribed by Priscila Saenz Authenticated and [facility]
[2022-08-21 04:00] VITALS: BP 170/114; PULSE 74; RESP 19; TEMP 36.9; O2SAT 94; BMI 34.6
--- NOTE | 2022-08-21 04:53 | PC.NURSE ---
NO C/O PAIN OR DISCOMFORT. SIDE RAILS PADDED. NO SEIZURE ACTIVITY THIS SHIFT. DAUGHTER AT BEDSIDE. VOIDING WITHOUT DIFFICULTY. BSC WITH ASSIST X 2.
[2022-08-21 04:58] VITALS: BP 160/88
[2022-08-21 06:32] LABS: Chloride 111 mmol/L (98-107); Sodium 144 mmol/L (136-145)
[2022-08-21 06:33] LABS: Potassium 3.4 mmoL/L (3.5-5.1)
[2022-08-21 06:35] LABS: Anion Gap 8.4 mEq/L (5-15); Blood Urea Nitrogen 7 mg/dl (7-17); Carbon Dioxide 28 mmol/L (22.0-30.0); Creatinine Clearance Estimated 57 mL/min (50-200); Estimated Glomerular Filt Rate 69 ml/min (>60); GFR (African American) 83 ML/MIN (>60)
[2022-08-21 06:36] LABS: Calcium 8.4 mg/dl (8.4-10.2); Glucose 114 mg/dl (74-100)
[2022-08-21 06:45] LABS: Basophils # 0.1 K/mm3 (0-0.2); Basophils % 0.8 % (0.1-2.0); Eosinophils # 0.2 K/mm3 (0.0-0.4); Eosinophils % 2.5 % (0.1-12.0); Hematocrit 43.7 % (37.0-47.0); Hemoglobin 13.8 g/dL (12.2-16.2); Lymphocytes # 2.5 K/mm3 (0.7-4.5); Lymphocytes % 29.7 % (10-50); Mean Corpuscular HGB Conc 31.6 g/dL (31.8-35.4); Mean Corpuscular Hemoglobin 32.3 pg (27.0-31.2); Mean Corpuscular Volume 102.3 fl (81-99); Mean Platelet Volume 8.7 fl (7.4-10.4); Monocytes # 0.6 K/mm3 (0.1-1.0); Platelet Count 267 K/mm3 (142-424); Red Blood Count 4.27 M/mm3 (4.20-5.40); Red Cell Distribution Width 13.2 % (11.5-17.5); White Blood Count 8.3 K/mm3 (4.8-10.8)
[2022-08-21 08:00] VITALS: BP 158/92; PULSE 77; RESP 20; TEMP 37.6; O2SAT 94
--- NOTE | 2022-08-21 08:04 | EXP.ACUTE.PN ---
Subjective *Date: 08/21/22 *Time: 08:39 Interval history: Patient is feeling a little better this morning. She is much more awake and alert. Her daughter states she was awake all night after sleeping all day yesterday. She denies any pain. She didn't eat much this am. Her daughter states she didn't want the pudding. Medical Exam Vital signs and Labs for Last 24 Hours: Vital Signs Temp Pulse Resp BP Pulse Ox 08/21/22 04:58 160/88 H 08/20/22 16:55 160/88 H 08/21/22 04:00 98.4 F 74 19 170/114 H 94 L 08/20/22 20:00 93 L 08/20/22 20:00 150/92 H 08/20/22 16:55 98.4 F 77 19 93 L 08/20/22 15:06 98.8 F 84 18 140/80 92 L Intake and Output 08/20/22 08/21/22 08/21/22 19:59 03:59 11:59 Intake Total 1163 / 2162 999 / 2162 Output Total 825 / 1925 1100 / 1925 Balance 338 / 237 -1100 / 237 999 / 237 Intake: Intake, Oral Amount 240 / 240 Intake, Total IV Amount 923 / 1922 999 / 1922 0.9 % Sodium Chloride 1,000 ml 923 / 1622 699 / 1622 @ 100 mls/hr IV .Q10H JACQUI Rx#: [id number] Azithromycin 500 mg In 0.9 % 250 / 250 Sodium Chloride 250 ml @ 250 mls/hr IV Q24H JACQUI Rx#:[id number] Ceftriaxone 1 gm 1 gm In 0.9 % 50 / 50 Sodium Chloride 50 ml @ 100 mls /hr IV Q24H JACQUI Rx#:[id number] Output: Output, Urine Amount 825 / 1925 1100 / 1925 Other: Number of Unmeasured Voids 1 1 1 Number of Bowel Movements 1 2 Weight 188 lb Patient Weight 08/21/22 11:59 Weight 188 lb Laboratory Results - last 24 hr 08/21/22 06:06: WBC 8.3, RBC 4.27, Hgb 13.8, Hct 43.7, MCV 102.3 H, MCH 32.3 H, MCHC 31.6 L, RDW 13.2, Plt Count 267, MPV 8.7, Neut % (Auto) 60.0, Lymph % (Auto) 29.7, Bee % (Auto) 7.0, Eos % (Auto) 2.5, Baso % (Auto) 0.8, Neut # (Auto) 5.0, Lymph # (Auto) 2.5, Bee # (Auto) 0.6, Eos # (Auto) 0.2, Baso # (Auto) 0.1 08/21/22 06:06: Sodium 144, Potassium 3.4 L, Chloride 111 H, Carbon Dioxide 28, Anion Gap 8.4, BUN 7 D, Creatinine 0.80, Estimated Creat Clear 57, Estimated GFR 69, Est GFR ( Amer) 83, Glucose 114 H, Calcium 8.4 I & O for Labs for Last 24 Hours: Intake & Output 08/18/22 08/19/22 08/20/22 08/21/22 11:59 11:59 11:59 11:59 Intake Total 0 / 0 2162 / 2162 Output Total 800 / 800 1925 / 1925 Balance -800 / -800 237 / 237 Weight 186 lb 4 oz 188 lb Constitutional: Present no acute distress Respiratory: Present decreased breath sounds Cardiac: Present Reg Rate and Rhythm GI: Present soft; Absent distention, tenderness or guarding Extremities: Present edema (1+ bilateral LE) Neuro: Present alert and awake Assessment and Plan *Assessment and plan (1) Seizure: Status: Acute Category: Medical Code(s): R56.9 - Unspecified convulsions (2) Community acquired pneumonia: Status: Acute Category: Medical Code(s): J18.9 - Pneumonia, unspecified organism (3) Hypokalemia: Status: Acute Category: Medical Code(s): E87.6 - Hypokalemia (4) Hypertension: Status: Chronic Category: Medical Code(s): I10 - Essential (primary) hypertension (5) Degenerative joint disease (DJD) of lumbar spine: Status: Chronic Category: Medical Code(s): M47.816 - Spondylosis without myelopathy or radiculopathy, lumbar region (6) Hypothyroidism (acquired): Status: Chronic Category: Medical Code(s): E03.9 - Hypothyroidism, unspecified (7) Anxiety: Status: Chronic Category: Medical Code(s): F41.9 - Anxiety disorder, unspecified (8) Delirium due to another medical condition: Status: Acute Category: Medical Code(s): F05 - Delirium due to known physiological condition Plan Patient has not had any further seizures. Her potassium is low. Will start on supplementation today. CXR showed pneumonia so she was started on antibiotics yesterday. Will discuss further care with
[2022-08-21 11:21] VITALS: PULSE 77; RESP 18
[2022-08-21 13:42] VITALS: BMI 34.4
--- NOTE | 2022-08-21 15:03 | HMH.PHAINT1 ---
Pharmacy Intervention Comments: DISCHARGE MEDICATION COUNSELING PROVIDED. DISCUSSED STARTING THE FOLLOWING: -AZITHROMYCIN (ANTIBIOTIC, DAILY, TAKE WITH FOOD, N/V/D POSSIBLE) -CEFDINIR (ANTIBIOTIC, TWICE DAILY, TAKE WITH FOOD, N/V/D POSSIBLE) -CHANGE ON BRIVIACT FROM DAILY TO TWICE DAILY. PATIENT VERBALIZED NO QUESTIONS AT THIS TIME.
--- NOTE | 2022-08-23 22:15 | EXP.DC.SUM ---
General Admission date:: 08/20/22 Discharge date: 08/21/22 HPI HPI HPI: Ms. Carrero is an 81-year-old female with a history of seizure disorder. Her family states over the past few weeks she has been fighting a urinary tract infection and has been on 2 different antibiotics. They state she has been talking out of her head and shuffling around the house very confused. Her daughter states she felt bad this whole week and just complained of fatigue. She had decreased urination and her legs have been swelling. She states last night she had an accident with her bowels and her daughter had just gotten her cleaned up when she appeared to become very clammy and sweaty. She laid down and stated she was tired and her daughter saw her on the monitor began to seize. The seizure lasted 4 to 5 minutes and she became postictal. Her daughter states EMS arrived and transported her to the hospital. She seemed to return to normal function while in the ER. Her daughter states the ER physician was getting ready to send her home when she had another seizure and had to receive Ativan. She was admitted at that point due to recurrent seizure. Prior to this, it has been almost a year since she has had one. Her daughter states that she has slept most of the night. The patient denies any pain this morning. Hospital Course Hospital Course Hospital Course: The patient's initial chest x-ray showed mild diffuse interstitial prominence. Her head CT showed nothing acute. She had no further seizures after arriving to the floor and had been mainly sleeping after the Ativan. Her labs were fairly unremarkable. Her UTI appeared to have resolved. A Briviact level was ordered. She had a repeat chest x-ray which showed a basilar consolidation. She was started on antibiotics for community-acquired pneumonia. By 08/21/2022, she was feeling better and was much more awake and alert. Her potassium was low and she was started on supplementation. She was saline locked and her diet was advanced. Some of her home medications were resumed. By the afternoon of 08/21/2022, she was feeling better and was anxious to go home. She will be continued on oral antibiotics and follow-up in the office in 1 week. Exam Data for Last 24 hours Vital signs and Labs for Last 24 Hours: Temp Pulse Resp BP Pulse Ox 99.6 F 77 18 158/92 H 94 L 08/21/22 08:00 08/21/22 11:21 08/21/22 11:21 08/21/22 08:00 08/21/22 08:00 I & O for Last 24 hours: Intake & Output 08/21/22 08/22/22 08/23/22 08/24/22 11:59 11:59 11:59 11:59 Intake Total 2402 / 2402 240 / 240 Output Total 1925 / 1925 200 / 200 Balance 477 / 477 40 / 40 Weight 188 lb 187 lb 6.287 oz Narrative: Constitutional Constitutional: no acute distress *Routine HEENT Exam Head: Present normocephalic and atraumatic Eye: Present EOMI and PERRL ENT: Present mucous membranes moist *Routine Neck Exam Neck: Present supple and full ROM *Routine Respiratory Exam Respiratory: Present CTA bilaterally *Routine Cardiovascular Exam Cardiovascular: Present RRR *Routine Abdominal Exam Abdominal: Present soft and normoactive bowel sounds; Absent tenderness *Routine Rectal Exam Rectal:: deferred *Routine Genitalia Exam Genitalia:: deferred *Routine Extremities Exam Extremities: Absent cyanosis, clubbing or edema *Routine Skin Exam Skin: Present intact; Absent erythema *Routine Neurological Exam Neurological: Present alert and oriented X3 Results Data Completed and Pending Labs on day of discharge: Preliminary micro results at discharge 08/20/22 03:25 Blood Culture - Preliminary Blood NO GROWTH AFTER 48 HOURS 08/20/22 03:25 Blood Culture - Preliminary Blood NO GROWTH AFTER 48 HOURS DS: Diagnosis Discharge Diagnosis (1) Seizure: Status: Acute (2) Community acquired pneumonia: Status: Acute (3) Hypokalemia: Status: Acute (4) Hypertension: Status: Chronic (5) Degene
--- NOTE | 2022-08-24 14:50 | CARE MANAGER ---
Contacted patient's daughter related to hospital discharge. She states mother is feeling much better. They were able to get her antibiotics and are aware of follow up appointment. Deny any questions or concerns. SABRA Raphael
== END 2022-08-21 15:17 | disposition home or self-care (01) ==
LOC: ER 03:32 → 2ND 05:29
PROVIDERS: Admitting Provider Internal Medicine Adolescent Medicine; Emergency Provider Emergency Medicine; PCP Family Medicine; Visit Provider Family Medicine
DX: G40.909 Epilepsy, unspecified, not intractable, without status epilepticus (principal); J18.9 Pneumonia, unspecified organism; I10 Essential (primary) hypertension; M47.816 Spondylosis without myelopathy or radiculopathy, lumbar region; E03.9 Hypothyroidism, unspecified; F41.9 Anxiety disorder, unspecified; E87.6 Hypokalemia; Z79.899 Other long term (current) drug therapy
CPT/HCPCS: G0378; 36415; 51702; 70450; 71045; 80048; 80053; 81001; 83605; 85025; 87040; 99285; C9803; J0456; J0696; U0003; U0005

== ENCOUNTER → 2022-09-01 11:28 | Outpatient (POV) | payer MEDICARE, MEDICAID, SELFPAY ==
--- NOTE | 2022-09-01 12:26 | EXP.PAIN.SOA ---
[facility] Pain Management SOAP Note Subjective:: Patient is a pleasant 81-year-old female who presents today for follow-up of thoracic epidural at T12-L1 on 08/04/2022. We are currently treating the patient for degenerative disc disease of the lumbar spine with lumbar radiculopathy symptoms, greater trochanteric bursitis, sacroiliitis, osteoarthritis bilateral knees. Today she states that she has had at least 60 to 70% improvement following her thoracic epidural and feels like it worked for approximately 3 weeks. Patient does rate her pain a 8 out of 10. She states that she is experiencing worsening pain along her right hip that does radiate into her groin and down her right leg to her knee. She does state that last week she was hospitalized for seizures and that she did lay around quite a bit which aggravated her pain symptoms. Patient states that she does have a history of epilepsy and did not have any new findings at last week's visit. Patient denies any change to location or type of pain she experiences. Patient does describe this as an aching, throbbing sensation with some tingling in her thigh. Patient states it is worse with increased activity or movement. Patient cannot tolerate prolonged sitting, standing, walking due to the pain. She does state it makes activities of daily living such as even moving from the bed to her wheelchair difficult. She is currently managed with oxycodone 10 mg twice a day and lorazepam 1 mg twice a day from her primary care doctor. Patient denies any side effects from these medications. She states they do help manage some of her pain symptoms. Her Jacob is [id number]. Its been reviewed and appropriate. Review of Systems: General: No recent weight changes, no fever, no sleep disturbances Respiratory: No cough, no shortness of air, no recurring pulmonary infections Cardiovascular/peripheral vascular: No chest pain, no palpitations, no edema, no shortness of breath Gastrointestinal: No new onset incontinence, normal bowel movements reported Genitourinary: No new onset incontinence Musculoskeletal: Low back pain, right hip pain, right leg pain Psychiatric: [Normal mood/affect] Neurological: [Denies weakness in extremities], [denies balance issues] Objective:: Physical Exam: General: Alert and oriented x3, no acute distress, pleasant and cooperative Lungs: Respirations even and unlabored, symmetrical chest expansion Eyes: PERRL Musculoskeletal: Flexion and extension of lumbar [spine] somewhat guarded secondary to pain, [antalgic gait noted] extreme point tenderness along right SI and right greater trochanteric bursa Neurological: Speech clear, no gross sensory deficit Assessment:: Degenerative disc disease of lumbar spine with lumbar radiculopathy symptoms, greater trochanteric bursitis, sacroiliitis, osteoarthritis bilateral knees Plan:: Patient is experiencing significant pain in her low back along the right side with radiating symptoms into her right hip, groin and right thigh. Patient did have limited range of motion of her lumbar spine and extreme point tenderness along her right SI and right greater trochanteric bursa with positive right Ryder's, Candelaria's, Gaenslen's, compression and distraction exam. I have discussed with the patient that she may benefit from a right SI and right bursa injection. Risk and benefits were discussed with the patient and she would like to proceed forward with this plan of care. Patient has had SI and bursa injections in the past that provided significant relief up upwards of 80% or more. We will schedule the patient for right SI and right bursa injection. Patient has been instructed to contact the clinic with any concerns before the next appointment. Dr. Gonzalez has reviewed this note and agrees with this plan of care. This note was dictated using voice recognition software and make contain errors or omissions. [facility] Disclaimer: The information contained in this section may have been u
[2022-09-01 12:53] VITALS: BP 148/76; PULSE 86; RESP 18; O2SAT 98; BMI 28.6
== END ==
PROVIDERS: PCP Family Medicine; Visit Provider Nurse Practitioner Family
DX: M51.16 Intervertebral disc disorders with radiculopathy, lumbar region (principal); M46.1 Sacroiliitis, not elsewhere classified; M70.60 Trochanteric bursitis, unspecified hip; M17.0 Bilateral primary osteoarthritis of knee
CPT/HCPCS: 99212; G0463

== ENCOUNTER 2022-09-08 13:55 | Day surgery (SDC) | payer MEDICARE, MEDICAID, SELFPAY ==
[2022-09-08 14:14] VITALS: BP 142/73; PULSE 93; RESP 18; TEMP 36.6; O2SAT 93; BMI 29.9
--- NOTE | 2022-09-08 14:35 | P.PCN_ITS ---
Procedure Date: 09/08/22 Time: 14:36 Anesthesiologist:: Jim Ventura CRNA Complications:: None Pre-procedure Diagnosis:: Right sacroiliitis. Right trochanteric bursitis. Post-procedure Diagnosis:: Same. Indications for Procedure:: Patient is a very pleasant 81-year-old female that presents to our clinic today for right sacroiliac joint injection as well as right trochanteric bursa injection. Patient has extreme point tenderness over each area. She rates her pain 8/10 Procedure Details:: Procedure: Right sacroliliac joint injection under fluoroscopy Informed consent was obtained and the risk and benefits of the procedure were explained to the patient.~ The patient was taken to the procedure room and noninvasive monitors were placed including noninvasive blood pressure cuff and pulse oximeter.~ The patient was placed prone on the procedure table.~ The~ right hip was cleansed using Betadine as a cleansing solution.~ C-arm fluorosocpy was used to view the right SI joint.~ The skin and subcutaneous tissues were anesthetized using Lidocaine 1.5% and a 25-gauge needle.~ After this, a 22-gauge spinal needle was inserted under fluoroscopic guidance into the inferior aspect of the right SI joint.~ Omnipaque dye was injected and a good spread was seen throughout the joint.~ After this, approximately 5 mL of bupivacaine 0.25% and Depo-Medrol 40 mg was incrementally injected into the sacroiliac joint.~ The patient tolerated the procedure well with no complications.~ The patient was observed in the Pain Clinic, then discharged home neurologically intact.~ Procedure: Right trochanteric bursa injection under fluoroscopy We then moved to the right trochanteric bursa.~ C-arm fluoroscopy was used to view the left greater trochanter.~ The skin and subcutaneous tissues overlying the right greater trochanter were anesthetized using lidocaine, 1.5% and a 25- gauge needle.~ After this, a 22-gauge spinal needle was inserted and advanced until it contacted the right greater trochanter.~ Dye was injected and good spread was seen throughout the right trochanteric bursa. After this, approximately 5 mL of bupivacaine, 0.25% and Depo-Medrol, 40 mg was incrementally injected into the right right trochanteric bursa.~ The patient tolerated the procedure well with no complications. Plan and Disposition:: Patient was discharged without incident.
[2022-09-08 14:37] VITALS: BP 153/78; PULSE 91; RESP 18; O2SAT 93
== END 2022-09-08 14:37 | disposition home or self-care (01) ==
PROVIDERS: PCP Family Medicine; Visit Provider Nurse Anesthetist, Certified Registered
DX: M46.1 Sacroiliitis, not elsewhere classified (principal); M70.61 Trochanteric bursitis, right hip
CPT/HCPCS: 20610; 27096; 77002; G0260; J1040

== ENCOUNTER → 2022-09-18 12:29 | Outpatient (CLI) | payer MEDICARE, MEDICAID, SELFPAY ==
--- NOTE | 2022-09-18 12:38 | XR_ITS ---
FINAL REPORT CLINICAL HISTORY: H/O RECENT PNEUMONIA COMPARISON: 08/20/2022 FINDINGS: Two views of the chest were obtained. The heart size and pulmonary vascularity are within normal limits. The mediastinum is normal. There has been interval improvement in aeration of the left lung base. There is persistent right lung base atelectasis or pneumonia. There is no pneumothorax. The bony thorax is intact. IMPRESSION: Interval improvement aeration left lung base. Persistent right lung base atelectasis or pneumonia. Reviewed, Interpreted and Dictated by Juwan Lorenzo III, MD Transcribed by Ilana Yo Authenticated and [facility]
== END ==
PROVIDERS: PCP Family Medicine; Visit Provider Family Medicine
DX: Z87.01 Personal history of pneumonia (recurrent) (principal)
CPT/HCPCS: 71046

== ENCOUNTER → 2022-09-30 12:45 | Outpatient (POV) | payer MEDICARE, MEDICAID, SELFPAY ==
[2022-09-30 13:20] VITALS: BP 149/68; PULSE 92; RESP 18; O2SAT 98; BMI 34.7
--- NOTE | 2022-09-30 13:27 | EXP.PAIN.SOA ---
[facility] Pain Management SOAP Note Subjective:: Patient is a pleasant 81-year-old female who presents today for follow-up of right SI and right bursa injection on 09/08/2022. We are currently treating the patient for degenerative disc disease of the lumbar spine with lumbar radiculopathy symptoms, greater trochanteric bursitis, sacroiliitis, osteoarthritis bilateral knees. Today she rates her pain a 7 out of 10. Patient denies any new trauma or injury. Patient denies any change location or type of pain she experiences. Patient states that she did have at least 50% improvement following this injections. She states her hip is much better. Today she is complaining more about her mid back pain. Patient states this is an aching, throbbing sensation that is worse with increased activity. Previously we have done thoracic epidural steroid injections at T12-L1 where there appears to be a chronic wedging. Patient has had at least 70% improvement from these injections lasting approximately 1 month. She is interested in repeating this injection today. Patient does state that her pain interferes with her ability to perform activities of daily living such as getting ready in the mornings or simple ambulation. She does present today in a wheelchair for additional help with ambulation. She is currently managed with oxycodone 10 mg twice a day and lorazepam 1 mg twice a day from her primary care doctor. Patient denies any side effects from this medication. Her Jacob is [phone]. Its been reviewed and appropriate. Review of Systems: General: No recent weight changes, no fever, no sleep disturbances Respiratory: No cough, no shortness of air, no recurring pulmonary infections Cardiovascular/peripheral vascular: No chest pain, no palpitations, no edema, no shortness of breath Gastrointestinal: No new onset incontinence, normal bowel movements reported Genitourinary: No new onset incontinence Musculoskeletal: Mid back/low back pain Psychiatric: [Normal mood/affect] Neurological: [Denies weakness in extremities], [denies balance issues] Objective:: Physical Exam: General: Alert and oriented x3, no acute distress, pleasant and cooperative Lungs: Respirations even and unlabored, symmetrical chest expansion Eyes: PERRL Musculoskeletal: Flexion and extension of thoracic/lumbar [spine] somewhat guarded secondary to pain, [antalgic gait noted] Neurological: Speech clear, no gross sensory deficit T12-L1: Degenerative disc disease with bulging disc along with facet and ligamentum hypertrophy with canal stenosis. There is wedging of the anterior aspect of L1 with loss of height anteriorly of approximately 45 percent which appears chronic. Assessment:: Degenerative disc disease of lumbar spine with lumbar radiculopathy symptoms, greater trochanteric bursitis, sacroiliitis, osteoarthritis bilateral knees Plan:: Patient is experiencing significant pain at her mid to lower back. She did have limited range of motion of her thoracic and lumbar spine during today's visit. I have discussed with the patient that she may benefit from repeat thoracic epidural steroid injection at T12-L1. Patient's previous MRI did show multilevel degenerative disc disease with bulging disc, facet hypertrophy, ligamentum hypertrophy and canal stenosis as well as wedging of the anterior aspects of L1 with a height loss of approximately 45% at this location. Risk and benefits were discussed with the patient and she would like to proceed forward with this plan of care. Patient is not on any blood thinners. We will schedule her for a T THELMA T12-L1. Patient has been instructed to contact the clinic with any concerns before the next appointment. Dr. Gonzalez has reviewed this note and agrees with this plan of care. This note was dictated using voice recognition software and make contain errors or omissions. [facility] Disclaimer: The information contained in this section may have been updated after the patient was s
== END ==
PROVIDERS: PCP Family Medicine; Visit Provider Nurse Practitioner Family
DX: M51.16 Intervertebral disc disorders with radiculopathy, lumbar region (principal); M17.0 Bilateral primary osteoarthritis of knee; M46.1 Sacroiliitis, not elsewhere classified; M70.60 Trochanteric bursitis, unspecified hip
CPT/HCPCS: 99212; G0463

== ENCOUNTER 2022-10-06 12:42 | Day surgery (SDC) | payer MEDICARE, MEDICAID, SELFPAY ==
[2022-10-06 13:03] VITALS: BP 156/65; PULSE 88; RESP 18; TEMP 36.8; O2SAT 93; BMI 29.1
--- NOTE | 2022-10-06 13:21 | P.PCN_ITS ---
Procedure Date: 10/06/22 Time: 13:15 Anesthesiologist:: Jim Ventura CRNA Complications:: None Pre-procedure Diagnosis:: Thoracolumbar degenerative disc disease. Thoracolumbar radiculopathy. Post-procedure Diagnosis:: Same Indications for Procedure:: Patient is a pleasant 81-year-old female comes our clinic today for T12-L1 epidural steroid injection. Patient had the same injection several months ago with moderate to significant improvement terms of her overall thoracolumbar pain and thoracic radiculopathy. She rates her pain today 7/10. Procedure Details:: Procedure:Thoracic epidural steroid injection under fluoroscopy Informed consent was obtained and the risks and benefits of the procedure were explained to the patient. The patient was taken to the procedure room and noninvasive monitors placed, including noninvasive blood pressure cuff and pulse oximeter. The back was viewed using C-Arm fluoroscopy and prepped using Betadine as a cleansing solution and the T12-L1 interspace was palpated. Skin and subcutaneous tissues were anesthetized using lidocaine 1.5% and a 25-gauge needle. After this, an 18-gauge Touhy epidural needle was placed into the T12-L1 interspace and advanced using fluoroscopic guidance and loss of resistance to air until the epidural space was encountered. After confirmation of needle placement in the epidural space, with dye, a solution containing lidocaine 1.5%, 4 mL and Depo-Medrol 80 mg were incrementally injected into the thoracic epidural space. The patient tolerated the procedure well with no complications. The patient was observed in the Pain Clinic and then discharged home neurologi mendel intact. Plan and Disposition:: Patient was discharged without incident.
[2022-10-06 13:22] VITALS: BP 141/76; PULSE 87; RESP 18; TEMP 36.8; O2SAT 98
== END 2022-10-06 13:22 | disposition home or self-care (01) ==
PROVIDERS: PCP Family Medicine; Visit Provider Nurse Anesthetist, Certified Registered
DX: M51.15 Intervertebral disc disorders with radiculopathy, thoracolumbar region (principal)
CPT/HCPCS: 62321; J1040

== ENCOUNTER → 2022-10-23 12:57 | Outpatient (POV) | payer MEDICARE, MEDICAID, SELFPAY ==
--- NOTE | 2022-10-23 13:24 | EXP.PAIN.SOA ---
[facility] Pain Management SOAP Note Subjective:: This patient is a very pleasant 82-year-old female that comes to our clinic today for follow-up visit after receiving a T12-L1 epidural steroid injection. Patient reports significant improvement terms of her overall thoracolumbar back pain. Patient's main complaint today is her right posterior hip pain she describes as constant, sharp, stabbing. Patient is sitting on her left buttock at the time of her evaluation due to the pain on the right. Upon examination she has extreme point tenderness over the right sacroiliac joint. Patient has positive Gaenslen's test. Positive Ryder's test. Positive right sacroiliac joint compression test. I discussed right sacroiliac joint injection with her and her daughter extensively. They wish to proceed. Patient rates her pain 7/10 today. Objective:: Patient is awake alert.. In no acute distress. Flexion-extension lumbar spine guarded secondary to pain. Deep tendon reflexes upper and lower extremities normal. Motor strength upper and lower extremities normal. There is no gross sensory deficit. Gait is not evaluated today due to patient being in a wheelchair. Assessment:: Degenerative disc disease lumbar spine multilevels. Lumbar radiculopathy. Right sacroiliitis. Plan:: We will plan right sacroiliac joint injection. I discussed in detail with the patient and her daughter regarding the injection. Answered her questions. They wish to proceed. [facility] Disclaimer: The information contained in this section may have been updated after the patient was seen, as this information can be updated by other users. Medical History Anxiety Chronic low back pain Former smoker Frequent UTI Heart murmur HTN (hypertension) Hypothyroid Seizures Spinal stenosis Spinal stenosis in cervical region Surgical History No pertinent past surgical history Family History Family history of cancer Family history of heart attack Social History Smoking Status: Former smoker alcohol intake: never substance use type: denies use current occupational status: retired Travel in the last 8 weeks: None caregiver/support person: Yes (daughter) household members: family housing: house lives independently: No marital status: education level: middle school current occupational exposures/hazards: No caffeine: Yes special lion needs: No agree to transfusion: No
[2022-10-23 13:52] VITALS: BP 154/85; PULSE 92; RESP 18; O2SAT 97; BMI 28.0
== END ==
PROVIDERS: PCP Family Medicine; Visit Provider Nurse Anesthetist, Certified Registered
DX: M51.16 Intervertebral disc disorders with radiculopathy, lumbar region (principal); M46.1 Sacroiliitis, not elsewhere classified
CPT/HCPCS: 99212; G0463

== ENCOUNTER 2022-10-27 13:02 | Day surgery (SDC) | payer MEDICARE, MEDICAID, SELFPAY ==
[2022-10-27 13:19] VITALS: BP 120/70; PULSE 78; RESP 18; TEMP 36.2; O2SAT 90; BMI 28.3
[2022-10-27 13:38] VITALS: BP 131/75; PULSE 80; RESP 18; O2SAT 93
--- NOTE | 2022-10-27 14:42 | P.PCN_ITS ---
Procedure Date: 10/27/22 Time: 14:00 Anesthesiologist:: Jim Ventura CRNA Complications:: None Pre-procedure Diagnosis:: Right sacroiliitis Post-procedure Diagnosis:: Same Indications for Procedure:: Very pleasant 82-year-old female comes our clinic today for right sacroiliac joint injection. She has extreme point tenderness over the right sacroiliac joint. She rates her pain 9/10. Patient has difficulty sitting on the right side. She has difficulty ambulating due to pain in the right posterior hip area. Procedure Details:: Procedure: Right sacroliliac joint injection under fluoroscopy Informed consent was obtained and the risk and benefits of the procedure were explained to the patient.~ The patient was taken to the procedure room and noninvasive monitors were placed including noninvasive blood pressure cuff and pulse oximeter.~ The patient was placed prone on the procedure table.~ The~ right hip was cleansed using Betadine as a cleansing solution.~ C-arm fluorosocpy was used to view the right SI joint.~ The skin and subcutaneous tissues were anesthetized using Lidocaine 1.5% and a 25-gauge needle.~ After this, a 22-gauge spinal needle was inserted under fluoroscopic guidance into the inferior aspect of the right SI joint.~ Omnipaque dye was injected and a good spread was seen throughout the joint.~ After this, approximately 5 mL of bupivacaine 0.25% and Depo-Medrol 40 mg was incrementally injected into the sacr oiliac joint.~ The patient tolerated the procedure well with no complications.~ The patient was observed in the Pain Clinic, then discharged home neurologically intact.~ Plan and Disposition:: Patient was discharged without incident.
== END 2022-10-27 13:38 | disposition home or self-care (01) ==
LOC: SC.PAINP 13:02
PROVIDERS: PCP Family Medicine; Visit Provider Nurse Anesthetist, Certified Registered
DX: M46.1 Sacroiliitis, not elsewhere classified (principal)
CPT/HCPCS: 27096; G0260

== ENCOUNTER → 2022-11-19 13:03 | Outpatient (POV) | payer MEDICARE, MEDICAID, SELFPAY ==
--- NOTE | 2022-11-19 13:34 | EXP.PAIN.SOA ---
[facility] Pain Management SOAP Note Subjective:: Is a pleasant 82-year-old female who presents today for follow-up. We are currently treating the patient for degenerative disc disease of thoracic and lumbar spine with thoracic and lumbar radiculopathy symptoms, sacroiliitis, hip pain, greater trochanteric bursitis and osteoarthritis bilateral knees. Today she rates her pain a 7 out of 10. Patient states her pain is all more in her low back with radiating symptoms into her lower extremities. Patient denies any new trauma or injury. Patient denies any change location or type of pain she experiences. Patient has had multiple injections that did provide significant relief. Patient had her last lumbar epidural steroid injection done in June and it did provide at least 60% improvement lasting approximately a month or more. Patient is interested in repeating this injection. She does state that her back pain is an aching, throbbing sensation that is worse with increased activity. It does interfere with her ability to perform activities of daily living including cooking and cleaning and ambulation. Patient has tried [id number] medications such as Tylenol and ibuprofen along with heat and ice and topicals with no improvement. Patient has had physical therapy and continues to do exercise and stretching daily as tolerated by her aggravated pain symptoms. Patient is currently prescribed oxycodone 10 mg twice a day and lorazepam 1 mg twice a day from her primary care doctor. Patient denies any side effects from these medications. Her Jacob is [phone]. Its been reviewed and appropriate. Review of Systems: General: No recent weight changes, no fever, no sleep disturbances Respiratory: No cough, no shortness of air, no recurring pulmonary infections Cardiovascular/peripheral vascular: No chest pain, no palpitations, no edema, no shortness of breath Gastrointestinal: No new onset incontinence, normal bowel movements reported Genitourinary: No new onset incontinence Musculoskeletal: Low back pain, bilateral leg pain Psychiatric: [Normal mood/affect] Neurological: [Denies weakness in extremities], [denies balance issues] Objective:: Physical Exam: General: Alert and oriented x3, no acute distress, pleasant and cooperative Lungs: Respirations even and unlabored, symmetrical chest expansion Eyes: PERRL Musculoskeletal: Flexion and extension of lumbar [spine] somewhat guarded secondary to pain, [antalgic gait noted] Neurological: Speech clear, no gross sensory deficit Assessment:: Degenerative disc disease of thoracic and lumbar spine with thoracic and lumbar radiculopathy symptoms, sacroiliitis, hip pain, greater trochanteric bursitis, osteoarthritis bilateral knees Plan:: Patient is experiencing significant pain in her low back with radiating symptoms into her lower extremities. Patient did have limited range of motion of her lumbar spine during today's visit. I have discussed with her regarding repeating her lumbar epidural steroid injection. Risk and benefits were discussed with the patient and she would like to proceed forward with this plan of care. Patient previously had a lumbar epidural steroid injection in June that provided 60% improvement. Patient has tried and failed conservative therapy such as oral medications, heat and ice, topicals, at home exercising and stretching daily along with physical therapy. We will schedule her for an LESI L4-L5. Patient has been instructed to contact the clinic with any concerns before the next appointment. Dr. Gonzalez has reviewed this note and agrees with this plan of care. This note was dictated using voice recognition software and make contain errors or omissions. [facility] Disclaimer: The information contained in this section may have been updated after the patient was seen, as this information can be updated by other users. Medical History Anxiety C
[2022-11-19 14:03] VITALS: BP 193/85; PULSE 94; RESP 18; O2SAT 98; BMI 27.4
== END ==
PROVIDERS: PCP Family Medicine; Visit Provider Nurse Practitioner Family
DX: M51.16 Intervertebral disc disorders with radiculopathy, lumbar region (principal); M51.14 Intervertebral disc disorders with radiculopathy, thoracic region; M46.1 Sacroiliitis, not elsewhere classified; M70.60 Trochanteric bursitis, unspecified hip; M25.559 Pain in unspecified hip; M17.0 Bilateral primary osteoarthritis of knee
CPT/HCPCS: 99212; G0463

== ENCOUNTER 2022-12-01 13:02 | Day surgery (SDC) | payer MEDICARE, MEDICAID, SELFPAY ==
[2022-12-01 13:12] VITALS: BP 132/74; PULSE 89; RESP 18; TEMP 36.5; O2SAT 92; BMI 29.1
--- NOTE | 2022-12-01 13:36 | P.PCN_ITS ---
Procedure Date: 12/01/22 Time: 13:30 Anesthesiologist:: Jim Ventura CRNA Complications:: None Pre-procedure Diagnosis:: Degenerative disc disease lumbar spine multilevels. Lumbar radiculopathy. Post-procedure Diagnosis:: Same. Indications for Procedure:: Patient is a pleasant 82-year-old female comes our clinic today for lumbar epidural steroid injection at the L4-5 level. Patient has had this injection in the past with significant improvement terms of her overall low back pain as well as bilateral hip and leg radicular symptoms. She rates her pain today 7/10. Procedure Details:: Procedure: Lumbar epidural steroid injection under fluoroscopy Informed consent was obtained and the risks and benefits of the procedure were explained to the patient. The patient was taken to the procedure room and noninvasive monitors placed, including noninvasive blood pressure cuff and pulse oximeter. The back was viewed using C-arm Fluoroscopy and prepped using Chloraprep as a cleansing solution and the L4-L5 interspace was palpated. Skin a nd subcutaneous tissues were anesthetized using lidocaine 1.5% and a 25-gauge needle. After this, an 18-gauge Touhy epidural needle was placed into the L4-L5 interspace and advanced using fluoroscopic guidance and loss of resistance to air until the epidural space was encountered. After confirmation of needle placement in the epidural space, with dye, a solution containing normal saline, 3 mL and Depo-Medrol 80 mg were incrementally injected into the lumbar epidural space. The patient tolerated the procedure well with no complications. The patient was observed in the Pain Clinic and then discharged home neurologically intact. Plan and Disposition:: Patient was discharged without incident.
[2022-12-01 13:45] VITALS: BP 131/57; PULSE 87; RESP 18; O2SAT 92
== END 2022-12-01 13:45 | disposition home or self-care (01) ==
PROVIDERS: PCP Family Medicine; Visit Provider Nurse Anesthetist, Certified Registered
DX: M51.16 Intervertebral disc disorders with radiculopathy, lumbar region (principal)
CPT/HCPCS: 62323; J1040

== ENCOUNTER → 2022-12-16 13:30 | Outpatient (POV) | payer MEDICARE, MEDICAID, SELFPAY ==
--- NOTE | 2022-12-16 14:06 | EXP.PAIN.SOA ---
[facility] Pain Management SOAP Note Subjective:: Patient is a pleasant 82-year-old female who presents today for follow-up of lumbar epidural steroid injection L4-L5 on 12/01/2022. We are currently treating the patient for degenerative disc disease of thoracic and lumbar spine with thoracic and lumbar radiculopathy symptoms, sacroiliitis, hip pain, greater trochanteric bursitis and osteoarthritis bilateral knees.? Today she states she had significant improvement following the injection of at least 50% however she rates her pain a 9 out of 10.? She states that yesterday when she was in the bathroom getting up from the commode she got a little lightheaded and grabbed her walker however she continued to fall between the toilet and the tub. Patient states she does have allover tenderness and soreness related to that injury. Patient states she did not have anything broken however had some bruising to her left arm. She does use a wheelchair for ambulation and lives with her daughter. Her daughter does state that she has been helping her get up and down out of the wheelchair since the fall. Patient did have low blood pressure during today's visit. Her daughter states that she is on 2 fluid pills daily along with her blood pressure medication and that it typically does run higher. Patient has tried hyek-eoj-bkbahah medications such as Tylenol and ibuprofen along with heat and ice and topicals with no improvement.? She is currently prescribed oxycodone 10 mg twice a day and lorazepam 1 mg twice a day from her primary care doctor.? Patient denies any side effects from these medications.? Her Jacob is [id number].? Its been reviewed and appropriate. Review of Systems: General: No recent weight changes, no fever, no sleep disturbances Respiratory: No cough, no shortness of air, no recurring pulmonary infections Cardiovascular/peripheral vascular: No chest pain, no palpitations,? no edema, no shortness of breath Gastrointestinal: No new onset incontinence, normal bowel movements reported Genitourinary: No new onset incontinence Musculoskeletal: Generalized pain, low back pain, left arm pain, right thigh/knee pain Psychiatric: [Normal mood/affect] Neurological: [Denies weakness in extremities], [denies balance issues] Objective:: Physical Exam: General: Alert and oriented x3, no acute distress, pleasant and cooperative Lungs: Respirations even and unlabored, symmetrical chest expansion Eyes: PERRL Musculoskeletal: Flexion and extension of lumbar [spine] somewhat guarded secondary to pain, [antalgic gait noted] Neurological: Speech clear, no gross sensory deficit Assessment:: Degenerative disc disease of thoracic and lumbar spine with thoracic and lumbar radiculopathy symptoms, sacroiliitis, hip pain, greater trochanteric bursitis, osteoarthritis bilateral knees Plan:: Patient is experiencing significant pain throughout her joints and low back related to a fall that occurred yesterday. Patient's blood pressure during our visit was 84/49. I have counseled the patient and her daughter to monitor this at home and take at least 3 sets of vitals daily and journal dose to see if her blood pressure consistently stays low. I have counseled the patient and her daughter that with the combination of fluid pills and blood pressure medication that she is at more risk for orthostatic hypotension and that if she ends up consistently staying lower with her blood pressure that she may have to alter some of her medications. I have also counseled her daughter that if her symptoms worsen that she is to go to the ER for evaluation. Patient will return to clinic in 2 weeks for reevaluation of symptoms and plan of care. Patient has been instructed to contact the clinic with any concerns before the next appointment. Dr. Gonzalez has reviewed this note and agrees with this plan of care. This note was dictated using voice recognition software and make contain errors or omissions. [facility] Disclaimer: The
[2022-12-16 15:26] VITALS: BP 84/49; PULSE 84; RESP 18; TEMP 36.9; O2SAT 94; BMI 27.4
== END ==
PROVIDERS: PCP Family Medicine; Visit Provider Nurse Practitioner Family
DX: M51.16 Intervertebral disc disorders with radiculopathy, lumbar region (principal); M51.14 Intervertebral disc disorders with radiculopathy, thoracic region; M46.1 Sacroiliitis, not elsewhere classified; M17.0 Bilateral primary osteoarthritis of knee; M70.60 Trochanteric bursitis, unspecified hip; M25.559 Pain in unspecified hip
CPT/HCPCS: 99212; G0463

== ENCOUNTER → 2022-12-30 13:27 | Outpatient (POV) | payer MEDICARE, MEDICAID, SELFPAY ==
--- NOTE | 2022-12-30 14:25 | EXP.PAIN.SOA ---
[facility] Pain Management SOAP Note Subjective:: Patient is a pleasant 82-year-old female who presents today for follow-up. We are currently treating the patient for degenerative disc disease of thoracic and lumbar spine with thoracic and lumbar radiculopathy symptoms, sacroiliitis, right hip pain, greater trochanteric bursitis, osteoarthritis bilateral knees. Today she rates her pain an 8 out of 10. Patient states her pain is all in her right hip with radiating symptoms into her groin with occasional numbness. Patient denies any new trauma or injury. At her last visit she was under the weather and was experiencing low blood pressure. Her daughter does state today that the blood pressure has gotten better and she is back at her baseline. Patient does states she is feeling much better today. Patient previously had fallen in the bathroom and was sore all over. Patient is currently prescribed oxycodone 10 mg twice a day and lorazepam 1 mg twice a day from her primary care doctor. Her Jacob is [phone]. Its been reviewed and appropriate. Review of Systems: General: No recent weight changes, no fever, no sleep disturbances Respiratory: No cough, no shortness of air, no recurring pulmonary infections Cardiovascular/peripheral vascular: No chest pain, no palpitations, no edema, no shortness of breath Gastrointestinal: No new onset incontinence, normal bowel movements reported Genitourinary: No new onset incontinence Musculoskeletal: Right hip pain Psychiatric: [Normal mood/affect] Neurological: [Denies weakness in extremities], [denies balance issues] Objective:: Physical Exam: General: Alert and oriented x3, no acute distress, pleasant and cooperative Lungs: Respirations even and unlabored, symmetrical chest expansion Eyes: PERRL Musculoskeletal: Flexion and extension of right hip somewhat guarded secondary to pain, [antalgic gait noted] Neurological: Speech clear, no gross sensory deficit Assessment:: Degenerative disc disease of thoracic and lumbar spine with thoracic and lumbar radiculopathy symptoms, sacroiliitis, right hip pain, greater trochanteric bursitis, osteoarthritis bilateral knees Plan:: Patient is experiencing significant pain in her right hip with limited range of motion. I have discussed with the patient that she may benefit from a right intra-articular hip injection. Patient has previously had these injections and had significant improvement. Risk and benefits were discussed with the patient and she would like to proceed forward with this plan of care. In the future we will also look at possibly if she would benefit from right transforaminal epidural steroid injection. Patient will be scheduled for a right hip intra-articular injection Patient has been instructed to contact the clinic with any concerns before the next appointment. Dr. Gonzalez has reviewed this note and agrees with this plan of care. This note was dictated using voice recognition software and make contain errors or omissions. [facility] Disclaimer: The information contained in this section may have been updated after the patient was seen, as this information can be updated by other users. Medical History Anxiety Chronic low back pain Former smoker Frequent UTI Heart murmur HTN (hypertension) Hypothyroid Seizures Spinal stenosis Spinal stenosis in cervical region Surgical History No pertinent past surgical history Family History Family history of cancer Family history of heart attack Social History Smoking Status: Former smoker alcohol intake: never substance use type: denies use current occupational status: retired Travel in the last 8 weeks: None caregiver/support person: Yes (daughter) household members: family hous
[2022-12-30 15:49] VITALS: BP 171/74; PULSE 91; RESP 19; O2SAT 98; BMI 27.1
== END ==
PROVIDERS: PCP Family Medicine; Visit Provider Nurse Practitioner Family
DX: M51.14 Intervertebral disc disorders with radiculopathy, thoracic region (principal); M51.16 Intervertebral disc disorders with radiculopathy, lumbar region; M46.1 Sacroiliitis, not elsewhere classified; M25.551 Pain in right hip; M70.60 Trochanteric bursitis, unspecified hip; M17.0 Bilateral primary osteoarthritis of knee
CPT/HCPCS: 99212; G0463

== ENCOUNTER 2023-01-19 12:53 | Day surgery (SDC) | payer MEDICARE, MEDICAID, SELFPAY ==
[2023-01-19 13:25] VITALS: BP 141/59; PULSE 83; RESP 18; TEMP 36.2; O2SAT 94; BMI 28.3
[2023-01-19 13:38] VITALS: BP 151/61; PULSE 83; RESP 18; O2SAT 94
--- NOTE | 2023-01-19 13:39 | P.PCN_ITS ---
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 Post-procedure Diagnosis:: Same. Indications for Procedure:: Patient is a pleasant 82-year-old female comes our clinic today for right intra- articular hip injection. Patient reports right hip pain with ambulation and/or standing for any length of time. She rates her pain 9/10. Procedure Details:: Details of the procedure were explained to the patient. The patient was taken to procedure room placed in the supine position. The area over the right hip was cleaned using chlorhexidine as a cleansing solution. Using fluoroscopy guidance a 3 and half inch 22-gauge spinal needle was used to access the right hip joint without difficulty. After negative aspiration 3 cc of 1% lidocaine +3 cc of 0.25% Marcaine and 40 mg of Depo-Medrol was injected. Needle was withdrawn. Band-Aid applied. Patient tolerated procedure without difficulty. There are no complications. Plan and Disposition:: Patient was discharged without incident.
== END 2023-01-19 13:38 | disposition home or self-care (01) ==
PROVIDERS: PCP Family Medicine; Visit Provider Nurse Anesthetist, Certified Registered
DX: M16.11 Unilateral primary osteoarthritis, right hip (principal); M25.551 Pain in right hip; G89.29 Other chronic pain
CPT/HCPCS: 20610; 77002

== ENCOUNTER → 2023-01-21 12:59 | Outpatient (CLI) | payer MEDICARE, MEDICAID, SELFPAY ==
--- NOTE | 2023-01-21 13:07 | XR_ITS ---
FINAL REPORT CLINICAL HISTORY: Lt ankle pain post fall FINDINGS: AP, oblique, and lateral views of the left ankle were obtained. There is no prior exam for comparison. There is no fracture or dislocation. The ankle mortise is intact. There is mild diffuse soft tissue edema. Osteopenia is seen. IMPRESSION: Soft tissue edema without fracture. Reviewed, Interpreted and Dictated by Natalie Dia MD Transcribed by Jose Maria Rogers Authenticated and [facility]
--- NOTE | 2023-01-21 13:07 | XR_ITS ---
FINAL REPORT CLINICAL HISTORY: SOA FINDINGS: PA and lateral views of the chest are obtained. A prior from 09/18/2022 was used for comparison. The cardiac and mediastinal silhouettes are within normal limits. The lungs are clear. There is no pleural effusion or pneumothorax. There is a compression fracture at the thoracolumbar junction which has possibly worsened since the prior exam. IMPRESSION: No acute cardiac or pulmonary disease. Possible increase in loss of height of a compression fracture at the thoracolumbar junction. An MRI is recommended. Reviewed, Interpreted and Dictated by Natalie Dia MD Transcribed by Jose Maria Rogers Authenticated and . [facility]
== END ==
PROVIDERS: PCP Family Medicine; Visit Provider Family Medicine
DX: R06.02 Shortness of breath (principal); M25.572 Pain in left ankle and joints of left foot
CPT/HCPCS: 71046; 73610

== ENCOUNTER → 2023-02-01 14:31 | Outpatient (POV) | payer MEDICARE, MEDICAID, SELFPAY ==
[2023-02-01 15:22] VITALS: BP 141/72; PULSE 90; RESP 18; O2SAT 97; BMI 27.1
--- NOTE | 2023-02-01 15:35 | EXP.PAIN.SOA ---
[facility] Pain Management SOAP Note Subjective:: Patient is a pleasant 82-year-old female who presents today for follow-up. 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 Today she rates her pain a 8 out of 10. Patient states she is having increasing pain in her mid back and describes it as a aching, throbbing sensation that is worse with increased activity. Patient had previously fallen back around December in the bathroom and stated that she did not think that she had any residual fractures or issues however she has recently had a chest x-ray that did show a compression fracture possible in the thoracic spine. Patient does state the pain interferes with her ability to do activities of daily living or even simple ambulation. She does state that the pain is constant and she does present today in office with a back brace on and in wheelchair to help with ambulation. She does state the back brace does help somewhat however it is very restrictive and causes additional pain. She is currently managed with lorazepam 1 mg twice a day, oxycodone 10 mg twice a day and Briviact 75 mg twice a day from her primary care doctor. Patient denies any side effects from this medication. Patient is managed with tizanidine 4 mg 3 times daily from our office as needed. Her daughter does state that they do not need any refills on this medication at this time. She does state that she has a history of osteoporosis and does take alendronate 70 mg weekly. Patient denies any recent DEXA scan. Her Jacob is [id number]. Its been reviewed and appropriate. Review of Systems: General: No recent weight changes, no fever, no sleep disturbances Respiratory: No cough, no shortness of air, no recurring pulmonary infections Cardiovascular/peripheral vascular: No chest pain, no palpitations, no edema, no shortness of breath Gastrointestinal: No new onset incontinence, normal bowel movements reported Genitourinary: No new onset incontinence Musculoskeletal: Mid back pain Psychiatric: [Normal mood/affect] Neurological: [Denies weakness in extremities], [denies balance issues] Objective:: Physical Exam: General: Alert and oriented x3, no acute distress, pleasant and cooperative Lungs: Respirations even and unlabored, symmetrical chest expansion Eyes: PERRL Musculoskeletal: Flexion and extension of thoracic [spine] somewhat guarded secondary to pain, [antalgic gait noted] Neurological: Speech clear, no gross sensory deficit Assessment:: Degenerative disc disease of thoracic and lumbar spine with thoracic and lumbar radiculopathy symptoms, low back pain, mid back pain, sacroiliitis, right hip pain, greater trochanteric bursitis, osteoarthritis bilateral knees, thoracic compression fracture Plan:: Patient is experiencing worsening pain in her mid back with limited range of motion. I will order MRI imaging to determine if the compression fracture is acute or chronic as well as order a DEXA scan to determine progressing osteoporosis. I will send in a 5-day dose of prednisone 20 mg twice daily. I have also discussed with the patient due to the prolonged positioning of MRI that I will send in a one-time dose of diazepam 4 mg to be taken 1 hour prior to imaging. I have counseled the patient regarding the procedure of kyphoplasty however we will discuss it further after her imaging. Patient will return to clinic following her MRI imaging of her thoracic spine without contrast for plan of care. Patient has been instructed to contact the clinic with any concerns before the next appointment. Dr. Gonzalez has reviewed this note and agrees with this plan of care. This note was dictated using voice recognition software and make contain errors or omissions. [facility] Disclaimer: The information cont
== END | disposition home or self-care (01) ==
PROVIDERS: Visit Provider Nurse Practitioner Family
DX: M51.14 Intervertebral disc disorders with radiculopathy, thoracic region (principal); M51.16 Intervertebral disc disorders with radiculopathy, lumbar region; M46.1 Sacroiliitis, not elsewhere classified; M25.551 Pain in right hip; M70.60 Trochanteric bursitis, unspecified hip; M17.0 Bilateral primary osteoarthritis of knee; S22.000S Wedge compression fracture of unspecified thoracic vertebra, sequela
CPT/HCPCS: 99212; G0463

== ENCOUNTER → 2023-02-11 09:19 | Outpatient (CLI) | payer MEDICARE, MEDICAID, SELFPAY ==
--- NOTE | 2023-02-11 09:23 | XR_ITS ---
FINAL REPORT TECHNIQUE: Bone mineral density was calculated of the lumbar spine and hip. CLINICAL HISTORY: COMP FX FINDINGS: Using L1-4, the bone mineral density of the spine is 1.30 g/cm2, corresponding to T-score of 2.3. Using the left hip, the bone mineral density of the femoral neck is 0.67 g/cm2, corresponding to a T-score of -2.2. Using the right hip, the bone mineral density of the femoral neck is 0.67 g/cm2, corresponding to a T-score of -2.2. NOTE: T-score: Standard deviation compared with peak bone mass of young adult mean. *Following the recommendations of the International Society of Bone densitometry, classification of hip BMD is based on the lower of two T-scores; total hip or femoral neck. IMPRESSION: Diminished bone mineral density of the right and left hip consistent with osteopenia. Although bone mineral density of the lumbar spine is normal, this is likely falsely elevated secondary to hypertrophic changes. Reviewed, Interpreted and Dictated by Juwan Lorenzo III, MD Transcribed by Lilly Hewitt Authenticated and [facility]
--- NOTE | 2023-02-11 09:49 | MR_ITS ---
FINAL REPORT CLINICAL HISTORY: COMPRESSION fx, abnormal chest x-ray. no injury or trauma. COMPARISON: None FINDINGS: Multiplanar MR imaging of the thoracic spine was performed without contrast. On the sagittal T2-weighted images, disc degeneration is seen at multiple levels. There is a moderate L1 compression fracture noted without acute marrow edema. There are multilevel mild degenerative endplate changes present as well as multilevel disc bulges and osteophytes. The vertebral alignment is normal. The thoracic spinal cord has an unremarkable appearance without evidence of mass, edema or syrinx. On the axial images, mild disc bulges and small osteophytes are seen at multiple levels. No focal soft disc protrusion is identified. There is mild canal narrowing at the T12-L1 and L1-2 levels, with AP canal diameters measuring 8 mm. No paraspinous soft tissue abnormality is identified. IMPRESSION: Multilevel mild degenerative disc disease and spondylosis. Mild canal stenosis is present at the T12-L1 and L1-2 levels. Reviewed, Interpreted and Dictated by Juwan Lorenzo III, MD Transcribed by Hoda Pillai Authenticated and [facility]
== END ==
PROVIDERS: PCP Family Medicine; Visit Provider Nurse Practitioner Family
DX: M48.55XA Collapsed vertebra, not elsewhere classified, thoracolumbar region, initial encounter for fracture; Z78.0 Asymptomatic menopausal state; M85.89 Other specified disorders of bone density and structure, multiple sites
CPT/HCPCS: 72146; 77080

== ENCOUNTER → 2023-02-22 13:38 | Outpatient (POV) | payer MEDICARE, MEDICAID, SELFPAY ==
--- NOTE | 2023-02-22 14:20 | EXP.PAIN.SOA ---
[facility] Pain Management SOAP Note Subjective:: Patient is a pleasant 82-year-old female who presents today for follow-up of imaging of her thoracic spine along with a DEXA scan. We are currently treating the patient for degenerative disc disease of thoracic and lumbar spine with thoracic and lumbar radiculopathy symptoms, low back pain, mid back pain, sacroiliitis, right hip pain, greater trochanteric bursitis, osteoarthritis bilateral knees, acute compression fracture of L1. Today she rates her pain a 7 out of 10. Patient states she still has a lot of pain around her mid to low back that is made worse with increased activity or bending/twisting. Patient states that she has not been able to even stand up due to the worsening pain symptoms. She does present today with back brace on. Patient does state the pain interferes with her ability perform activities of daily living such as cooking or cleaning. She is currently managed with lorazepam 1 mg twice a day, oxycodone 10 mg twice a day and Briviact 75 mg twice a day from her primary care doctor. She denies any side effects from this medication. She is prescribed tizanidine 4 mg 3 times a day from our office. Patient does states she needs a refill of this today. Patient does have osteoporosis and takes Alendronate 70 mg weekly. Her Jacob has been reviewed and is appropriate. Review of Systems: General: No recent weight changes, no fever, no sleep disturbances Respiratory: No cough, no shortness of air, no recurring pulmonary infections Cardiovascular/peripheral vascular: No chest pain, no palpitations, no edema, no shortness of breath Gastrointestinal: No new onset incontinence, normal bowel movements reported Genitourinary: No new onset incontinence Musculoskeletal: Mid/low back pain Psychiatric: [Normal mood/affect] Neurological: [Denies weakness in extremities], [denies balance issues] Objective:: Physical Exam: General: Alert and oriented x3, no acute distress, pleasant and cooperative Lungs: Respirations even and unlabored, symmetrical chest expansion Eyes: PERRL Musculoskeletal: Flexion and extension of thoracic, lumbar [spine] somewhat guarded secondary to pain, [antalgic gait noted] Neurological: Speech clear, no gross sensory deficit FINAL REPORT CLINICAL HISTORY: COMPRESSION fx, abnormal chest x-ray. no injury or trauma. COMPARISON: None FINDINGS: Multiplanar MR imaging of the thoracic spine was performed without contrast. On the sagittal T2-weighted images, disc degeneration is seen at multiple levels. There is a moderate L1 compression fracture noted without acute marrow edema. There are multilevel mild degenerative endplate changes present as well as multilevel disc bulges and osteophytes. The vertebral alignment is normal. The thoracic spinal cord has an unremarkable appearance without evidence of mass, edema or syrinx. On the axial images, mild disc bulges and small osteophytes are seen at multiple levels. No focal soft disc protrusion is identified. There is mild canal narrowing at the T12-L1 and L1-2 levels, with AP canal diameters measuring 8 mm. No paraspinous soft tissue abnormality is identified. IMPRESSION: Multilevel mild degenerative disc disease and spondylosis. Mild canal stenosis is present at the T12-L1 and L1-2 levels. Reviewed, Interpreted and Dictated by Juwan Lorenzo III, MD Transcribed by Hoda Pillai Authenticated and . [facility] FINDINGS: Using L1-4, the bone mineral density of the spine is 1.30 g/cm2, corresponding to T-score of 2.3. Using the left hip, the bone mineral density of the femoral neck is 0.67 g/cm2, corresponding to a T-score of -2.2. Using the right hip, the bone mineral density of the femoral neck is 0.67 g/cm2, corresponding to a T-score of -2.2. NOTE: T-score: Standard deviation compared with peak bone mass of young adult mean.
[2023-02-22 15:17] VITALS: BP 183/72; PULSE 88; RESP 18; O2SAT 93; BMI 27.1
== END | disposition home or self-care (01) ==
PROVIDERS: PCP Family Medicine; Visit Provider Nurse Practitioner Family
DX: M51.14 Intervertebral disc disorders with radiculopathy, thoracic region (principal); M51.16 Intervertebral disc disorders with radiculopathy, lumbar region; M46.1 Sacroiliitis, not elsewhere classified; M25.551 Pain in right hip; M70.60 Trochanteric bursitis, unspecified hip; M17.0 Bilateral primary osteoarthritis of knee; S32.010A Wedge compression fracture of first lumbar vertebra, initial encounter for closed fracture
CPT/HCPCS: 99212; G0463

== ENCOUNTER → 2023-03-02 17:00 | Day surgery (SDC) | payer MEDICARE, MEDICAID, SELFPAY ==
[2023-03-02 13:30] VITALS: BP 148/84; PULSE 91; RESP 20; TEMP 36.8; O2SAT 99; BMI 28.3
--- NOTE | 2023-03-03 07:56 | PC.NURSE ---
0720-procedure was cancelled per provider order
--- NOTE | 2023-03-09 13:49 | EXP.PAIN.SOA ---
[facility] Pain Management SOAP Note Subjective:: Patient is a pleasant 82-year-old female that comes to our clinic for thoracolumbar epidural steroid injection T12-L1. Patient has acute on chronic L1 vertebral fracture. I discussed in detail with the patient regarding the vertebral fracture and potential for kyphoplasty. I do not recommend injection today. I will talk with Dr. Gonzalez by phone today regarding the vertebral fracture at the L1 level. Patient is having pain she describes as constant, dull, aching. This pain began in the last couple of weeks. She had a fall in the bathroom. Objective:: Patient is awake alert Millis x3. In no acute distress. Flexion-extension lumbar spine very guarded secondary to pain. Deep tendon reflexes upper and lower extremities normal. Motor strength upper and lower extremities normal. There is no gross sensory deficit. Gait is antalgic and not assessed today secondary to patient being in wheelchair. Patient is ambulatory, however she is having too much pain to walk from the parking lot to the clinic. Assessment:: Degenerative disc lumbar spine multilevels. Lumbar radiculopathy. Acute on chronic L1 vertebral fracture. Plan:: I spoke with Dr. Gonzalez regarding the patient. He will see her this 03/05/2023 for evaluation. [facility] Disclaimer: The information contained in this section may have been updated after the patient was seen, as this information can be updated by other users. Medical History Anxiety Chronic low back pain Former smoker Frequent UTI Heart murmur HTN (hypertension) Hypothyroid Seizures Spinal stenosis Spinal stenosis in cervical region Surgical History No pertinent past surgical history Family History Family history of cancer Family history of heart attack Social History (Updated 03/03/23 @ 07:53 by Essie Todd RN) Smoking Status: Former smoker alcohol intake: never substance use type: denies use current occupational status: other Travel in the last 8 weeks: None caregiver/support person: Yes (daughter) household members: family housing: house lives independently: No marital status: education level: middle school current occupational exposures/hazards: No caffeine: Yes special lion needs: No agree to transfusion: No
== END | disposition home or self-care (01) ==
LOC: SC.PAINP 17:01
PROVIDERS: PCP Family Medicine; Visit Provider Nurse Anesthetist, Certified Registered
DX: M51.16 Intervertebral disc disorders with radiculopathy, lumbar region (principal); S32.019A Unspecified fracture of first lumbar vertebra, initial encounter for closed fracture
CPT/HCPCS: 99212; G0463

== ENCOUNTER → 2023-03-05 10:37 | Outpatient (POV) | payer MEDICARE, MEDICAID, SELFPAY ==
[2023-03-05 10:30] VITALS: BP 158/79; PULSE 82; RESP 20; TEMP 36.7; O2SAT 96; BMI 26.6
--- NOTE | 2023-03-05 10:58 | A.OFFVIS_ITS ---
[facility] Pain Management SOAP Note Subjective:: The patient is a pleasant 82-year-old white female who has had a recent fall last month and a compression fracture of the L1 vertebral body. After looking at her imaging she does have a chronic L1 compression fracture and possibly an acute on chronic change however there is no marrow edema. I do not believe this is amenable to a kyphoplasty. She does have severe degenerative changes and increasing low back pain. I have talked to the patient about other options including intrathecal therapy. Given the history of compression fractures with degenerative changes and severe low back pain I do believe she would be a good candidate for intrathecal therapy. She is on oxycodone 10 mg twice a day as needed. She only takes that when she is in acute pain. This does help. She has failed all previous conservative treatments including injections, oral medications, physical therapy and she is not a candidate for surgery. We will seek approval for intrathecal pump trial. Objective:: Alert and oriented x3 no acute distress. Patient is sitting in a wheelchair. Motor strength of lower extremities is 4 out of 5. There is no gross sensory deficit. Patient is tender over lower lumbar spine. Assessment:: Degenerative disc disease of lumbar spine with L1 compression fracture acute on chronic. Compression fracture is not amenable to kyphoplasty. Plan:: I do believe the patient is a good candidate for intrathecal therapy. We will order psychological evaluation and plan on intrathecal pump trial. She will need to be off of her oxycodone for 48 hours prior to the pump trial. Currently she only takes her oxycodone as needed. [facility] Disclaimer: The information contained in this section may have been updated after the patient was seen, as this information can be updated by other users. Medical History Anxiety Chronic low back pain Former smoker Frequent UTI Heart murmur HTN (hypertension) Hypothyroid Seizures Spinal stenosis Spinal stenosis in cervical region Surgical History No pertinent past surgical history Family History Family history of cancer Family history of heart attack Social History (Updated 03/03/23 @ 07:53 by Essie Todd RN) Smoking Status: Former smoker alcohol intake: never substance use type: denies use current occupational status: retired Travel in the last 8 weeks: None caregiver/support person: Yes (daughter) household members: family housing: house lives independently: No marital status: education level: middle school current occupational exposures/hazards: No caffeine: Yes special lion needs: No agree to transfusion: No
== END ==
PROVIDERS: PCP Family Medicine; Visit Provider Anesthesiology
DX: M51.36 Other intervertebral disc degeneration, lumbar region (principal); M48.56XS Collapsed vertebra, not elsewhere classified, lumbar region, sequela of fracture
CPT/HCPCS: 99212; G0463

== ENCOUNTER → 2023-03-18 23:44 | Outpatient (CLI) | payer MEDICARE, MEDICAID, SELFPAY | PROVIDERS: PCP Family Medicine; Visit Provider Student in an Organized Health Care Education/Training Program | DX: N39.0 Urinary tract infection, site not specified (principal); B96.29 Other Escherichia coli [E. coli] as the cause of diseases classified elsewhere | CPT/HCPCS: 87086; 87088; 87186 ==

== ENCOUNTER 2023-03-31 07:03 | Emergency (ER) | payer MEDICARE, MEDICAID, SELFPAY ==
[2023-03-31] VITALS (14 sets, daily range): BP systolic 174–228; BP diastolic 75–102; PULSE 71–97; RESP 20–23; TEMP 36.8; O2SAT 91–98; BMI 35.5
--- NOTE | 2023-03-31 07:09 | ECG_ITS ---
APPROVED REPORT Exam: Resting ECG HR:94 bpm ECG Measurements Heart Rate 94 AXES MI 208 P 76 QRSd 97 QRS 1 QT 337 T 94 QTc 389 Conclusion SINUS RHYTHM SEPTAL MYOCARDIAL INFARCTION , PROBABLY OLD [40+ ms Q WAVE IN V1/V2] ABNORMAL ECG UNCONFIRMED REPORT Electronically signed by : Chan Márquez MD 04/01/2023 17:20:30
--- NOTE | 2023-03-31 07:12 | PC.NURSE ---
Dr. Loya at BS for pt eval
--- NOTE | 2023-03-31 07:17 | PC.NURSE ---
Pt daughter at BS
--- NOTE | 2023-03-31 07:21 | CT_ITS ---
FINAL REPORT TECHNIQUE: Thin section axial images were obtained through the cervical spine without contrast. Multiplanar reconstruction images were obtained from the axial data. Exam was performed using dose reduction techniques. CLINICAL HISTORY: fall, head trauma COMPARISON: None FINDINGS: There is no acute fracture or acute malalignment of the cervical spine. There is no evidence of unilateral or bilateral facet lock. Vertebral body height is preserved. No acute paraspinal abnormality is identified. There has been resection of the posterior elements at the C3-C5 levels. Multilevel degenerative disc disease is present. IMPRESSION: No acute osseous abnormality of the cervical spine. Reviewed, Interpreted and Dictated by Natalie Dia MD Transcribed by Hoda Pillai Authenticated and [facility]
--- NOTE | 2023-03-31 07:21 | CT_ITS ---
FINAL REPORT TECHNIQUE: Thin section axial images were obtained from skull base to vertex without contrast. Coronal reconstruction images were obtained from the axial data. Exam was performed using dose reduction technique. CLINICAL HISTORY: fall, head trauma COMPARISON: 08/20/2022 FINDINGS: There is age-appropriate atrophy. There is no mass effect or midline shift. There is no intracranial hemorrhage. There is no hydrocephalus. Periventricular low density is likely related to changes of chronic small vessel ischemia. The basilar cisterns are preserved. The posterior fossa is without acute abnormality. The soft tissues are without acute abnormality. No acute osseous abnormality is identified. IMPRESSION: No acute intracranial abnormality. Atrophy and changes suggesting chronic small vessel ischemia. Reviewed, Interpreted and Dictated by Natalie Dia MD Transcribed by Hoda Pillai Authenticated and [facility]
--- NOTE | 2023-03-31 07:23 | XR_ITS ---
FINAL REPORT CLINICAL HISTORY: ams, seizure COMPARISON: 01/21/2023 FINDINGS: A portable view of the chest was obtained. Cardiomegaly is again identified. The lung volumes are small, and there are bibasilar opacities and bilateral effusions, worrisome for pneumonia.. No pneumothorax is present. IMPRESSION: Cardiomegaly and bibasilar opacities and small effusions, worrisome for pneumonia. Reviewed, Interpreted and Dictated by Natalie Dia MD Transcribed by Hoda Pillai Authenticated and [facility]
--- NOTE | 2023-03-31 07:27 | HMH.EDGENADL ---
Discharge Plan Disposition Patient Disposition: Home, Self-Care Prescriptions Prescriptions: New cefdinir 300 mg capsule 300 mg PO BID 7 Days Qty: 14 0RF No Action irbesartan 150 mg tablet 150 mg PO DAILY gabapentin 300 mg capsule 600 mg PO BID Patient Comments: TAKE TWO CAPSULES BY MOUTH TWICE DAILY MAY CAUSE DROWSINESS levothyroxine 25 mcg tablet 25 mcg PO DAILY mirabegron 50 MG tablet extended release 24 hr 50 mg PO DAILY celecoxib 100 MG capsule 100 mg PO DAILY meclizine 25 MG tablet 25 mg PO BIDP PRN (Reason: Motion Sickness) esomeprazole magnesium 40 MG capsule,delayed release(DR/EC) 40 mg PO DAILY duloxetine 60 MG capsule,delayed release(DR/EC) 60 mg PO DAILY alendronate 70 MG tablet 70 mg PO WEEKLY docusate sodium 250 MG capsule 250 mg PO BIDP PRN (Reason: Constipation) oxycodone 10 MG tablet 10 mg PO BID cholecalciferol (vitamin D3) 125 MCG capsule 5,000 unit PO DAILY cyanocobalamin (vitamin B-12) 500 MCG tablet,disintegrating 500 mcg sublingual DAILY furosemide 20 mg tablet 20 mg PO DAILY donepezil 5 mg tablet 5 mg PO HS Patient Comments: TAKE ONE TABLET BY MOUTH EVERY DAY AT BEDTIME lorazepam 1 mg tablet 1 mg PO BID Patient Comments: TAKE ONE TABLET BY MOUTH TWICE DAILY MAY CAUSE DROWSINESS memantine 5 mg tablet 5 mg PO BID Patient Comments: TAKE ONE TABLET BY MOUTH TWICE DAILY Linzess 290 mcg capsule 290 mcg PO DAILY Patient Comments: TAKE ONE CAPSULE BY MOUTH EVERY DAY brivaracetam 75 mg Tablet 75 mg PO BID Qty: 60 0RF diazepam 2 mg tablet 4 mg PO ONCE Qty: 2 0RF Rx Instructions: Take 1hr prior to MRI imaging for pain/anxiety tizanidine 4 mg tablet 4 mg PO Q8H PRN (Reason: muscle spasticity) Qty: 90 0RF polyethylene glycol 3350 [Miralax] 17 gram Powder In Packet 17 g PO DAILY loratadine 10 mg Tablet 10 mg PO DAILY PRN (Reason: Allergy Symptoms) multivit with min-folic acid [One-A-Day Women's 50 Plus] 0.4 mg Tablet 1 tab PO DAILY Benefiber Plus Calcium 3 gram-300 mg/8.8 gram Powder 3 g PO DAILY Referrals Follow up/Referrals: Stapleton,Triston, MD [Primary Care Provider] - See instructions Activity Restrictions/Add. Instructions Additional Instructions/Restrictions: Call your family doctor to establish care for this visit to the emergency department and schedule follow-up within 48 hours to ensure improvement. If you have any worsening of your condition or any other concerning signs or symptoms, return to the emergency department or your primary care doctor for further evaluation. Take antibiotic for 7 days as prescribed. Follow-up with your neurologist in order to discuss Keppra versus staying on current medication regimen. Clinical Impressions Clinical Impression: Breakthrough seizure Instructions Patient Instructions: DI for Seizure Disorder -- Adult, DI for Seizure (Not Epilepsy/Seizure Disorder), DI for Seizure Disorder -- Child Discharge ED Provider: Dylon Loya General Adult HPI General Chief complaint: Seizure Stated complaint: Seizure Time Seen by Provider: 03/31/23 07:06 Mode of Arrival: EMS Source of Information: Patient, Relative and EMS Limitations: Altered Mental Status History of Present Illness HPI narrative: 82-year-old female with history of seizure disorder, dementia, hypertension, hyperlipidemia presenting with seizure and fall. Per family, patient made labs found woke them up. They worked on monitor and patient appeared to have seizure-like activity at bedside. Patient then rolled off the bed and continued to be confused, so EMS was called. Per family, patient recently taken off of Keppra and put on Briviact for seizures, this is a second seizure like activity since that happened. On arrival, patient oriented only to person, and has no complaints of pain in
[2023-03-31 07:31] LABS: Basophils % 0.4 % (0.1-2.0); Eosinophils # 0.2 K/mm3 (0.0-0.4); Eosinophils % 2.7 % (0.1-12.0); Hematocrit 46.3 % (37.0-47.0); Hemoglobin 14.3 g/dL (12.2-16.2); Lymphocytes # 1.8 K/mm3 (0.7-4.5); Lymphocytes % 24.1 % (10-50); Mean Corpuscular HGB Conc 30.8 g/dL (31.8-35.4); Mean Corpuscular Hemoglobin 31.7 pg (27.0-31.2); Mean Platelet Volume 8.3 fl (7.4-10.4); Monocytes # 0.3 K/mm3 (0.1-1.0); Neutrophils # 5.2 K/mm3 (1.8-7.8); Neutrophils % 68.7 % (37.0-80.0); Platelet Count 214 K/mm3 (142-424); Red Cell Distribution Width 12.9 % (11.5-17.5); White Blood Count 7.6 K/mm3 (4.8-10.8)
[2023-03-31 07:37] LABS: Alanine Aminotransferase 35 U/L (12-78); Albumin Level 4.1 g/dl (3.5-5.0); Albumin/Globulin Ratio 1.1 (1.1-1.8); Alkaline Phosphatase 95 U/L (38-126); Anion Gap 14.7 mEq/L (5-15); Aspartate Amino Transferase 41 U/L (14-36); Bilirubin,Total 0.4 mg/dl (0.2-1.3); Blood Urea Nitrogen 16 mg/dl (7-17); Calcium 9.2 mg/dl (8.4-10.2); Carbon Dioxide 27 mmol/L (22.0-30.0); Chloride 105 mmol/L (98-107); Creatine Kinase 166 U/L (30-135); Creatinine Clearance Estimated 62 mL/min (50-200); Estimated Glomerular Filt Rate 60 ml/min (>60); GFR (African American) 72 ML/MIN (>60); Globulin 3.7 g/dL (1.3-3.2); Glucose 177 mg/dl (74-100); Potassium 3.7 mmoL/L (3.5-5.1); Sodium 143 mmol/L (136-145); Total Protein,Serum 7.8 g/dl (6.3-8.2)
[2023-03-31 07:42] LABS: Activated Partial Thrombo Time 26.7 seconds (22.8-30.6)
--- NOTE | 2023-03-31 07:43 | PC.NURSE ---
Pt gone to RAD via stretcher
[2023-03-31 07:55] LABS: T4 (Thyroxine) 12.2 ug/dl (5.53-11.0)
--- NOTE | 2023-03-31 07:59 | PC.NURSE ---
Pt returned from RAD
[2023-03-31 08:02] LABS: Troponin I 0.01 ng/ml (0.00-0.034)
[2023-03-31 08:08] LABS: Thyroid Stimulating Hormone 6.35 uIU/mL (0.465-4.68)
--- NOTE | 2023-03-31 08:29 | PC.NURSE ---
Pt assisted to bedside toilet with 2 person assist
[2023-03-31 08:35] LABS: Microscopic, Urine URINE MICROSCOPIC (MICROSCOPIC)
[2023-03-31 08:39] LABS: Appearance,Urine CLEAR (Clear); Bilirubin,Urine Negative (Negative); Blood, Urine Negative (Negative); Color,Urine YELLOW (Yellow); Glucose,Urine (UA) Negative (Negative); Ketones,Urine Negative (Negative); Leukocyte Esterase,Urine 1+ (Negative); Nitrate,Urine POSITIVE (Negative); Protein,Urine Negative (Negative); Urobilinogen,Urine 0.2 EU/dl (0.2)
[2023-03-31 08:42] LABS: Ammonia < 9 umol/L (9-30)
[2023-03-31 08:46] LABS: Lactic Acid 2.3 mmol/L (0.7-2.1)
[2023-03-31 08:57] LABS: NT Pro Brain Natriuretic Pep. 546 pg/mL (0-450)
[2023-03-31 09:03] LABS: Bacteria,Urine 3+ /lpf
--- NOTE | 2023-03-31 09:24 | PC.NURSE ---
rounded on pt received ice water, no other needs at this time,call light at bs
--- NOTE | 2023-03-31 10:08 | PC.NURSE ---
Madhuri and myself helped pt up to bedside commode, call light placed beside pt to call out when finished
--- NOTE | 2023-03-31 10:38 | PC.NURSE ---
pt now in bed resting no needs at this time,daughter at bs
[2023-03-31 11:09] LABS: Troponin I 0.02 ng/ml (0.00-0.034)
--- NOTE | 2023-03-31 11:37 | PC.NURSE ---
checked on pt still using bed side commode daughter at bs will call out when finished
[2023-03-31 12:32] LABS: Reflex Lactic Add Lactic Reflex
--- NOTE | 2023-04-06 13:36 | PC.NURSE ---
Reviewed pt positive urine culture with current MD on shift Dr. Loya. MD reported the pt is currently on the correct antibiotic and no further action is needed at this time.
== END 2023-03-31 13:06 | disposition home or self-care (01) ==
PROVIDERS: Emergency Provider Emergency Medicine; PCP Family Medicine
DX: G40.919 Epilepsy, unspecified, intractable, without status epilepticus (principal); F03.90 Unspecified dementia, unspecified severity, without behavioral disturbance, psychotic disturbance, mood disturbance, and anxiety; I10 Essential (primary) hypertension; E78.5 Hyperlipidemia, unspecified; F41.9 Anxiety disorder, unspecified; R01.1 Cardiac murmur, unspecified; E03.9 Hypothyroidism, unspecified; Z87.891 Personal history of nicotine dependence
CPT/HCPCS: 36415; 70450; 71045; 72125; 80053; 81001; 82140; 82550; 83605; 83880; 84436; 84443; 84484; 85025; 85730; 87086; 87088; 87186; 93005; 96361; 96365; 96375; 99285; J0696; J1953

== ENCOUNTER 2023-09-27 15:06 | Outpatient (CLI) | payer MEDICARE, MEDICAID, SELFPAY ==
--- NOTE | 2023-09-27 15:14 | XR_ITS ---
FINAL REPORT CLINICAL HISTORY: RT SIDED CHEST WALL PAIN COMPARISON: 03/31/2023 FINDINGS: 2 views of the chest were obtained . There is mild, stable cardiomegaly. Worsening bibasilar opacities may represent atelectasis versus pneumonia. There is no significant pleural effusion. There is no pneumothorax. IMPRESSION: Worsening bibasilar opacities which may represent atelectasis or pneumonia. Reviewed, Interpreted and Dictated by Natalie Dia MD Transcribed by Lilly Hewitt Authenticated and [facility]
--- NOTE | 2023-09-27 15:14 | XR_ITS ---
FINAL REPORT CLINICAL HISTORY: RT SIDED CHEST WALL PAIN FINDINGS: RIGHT RIBS 4 views of the right ribs were obtained. There is an age-indeterminate posterior right ninth rib fracture. There is also an acute appearing left lateral seventh rib fracture. There is no pneumothorax. No other bony abnormality is identified. IMPRESSION: Age-indeterminate right posterior ninth rib fracture and acute appearing left lateral seventh rib fracture. No pneumothorax. Reviewed, Interpreted and Dictated by Natalie Dia MD Transcribed by Lilly Hewitt Authenticated and [facility]
== END 2023-09-27 23:59 ==
PROVIDERS: PCP Family Medicine; Visit Provider Family Medicine
DX: R07.89 Other chest pain (principal)
CPT/HCPCS: 71046; 71100

== ENCOUNTER 2023-11-10 13:03 | Outpatient (POV) | payer MEDICARE, MEDICAID, SELFPAY ==
[2023-11-10 13:15] VITALS: BP 190/84; PULSE 77; RESP 16; O2SAT 94; BMI 28.3
--- NOTE | 2023-11-10 13:24 | A.OFFVIS_ITS ---
[facility] Pain Management SOAP Note Subjective:: Patient is a pleasant 83-year-old female who presents today for follow-up. Today she rates her pain an 8 out of 10. Patient states she has been experiencing worsening pain in her low back and legs. Patient describes it as an aching, throbbing sensation that is worse with increased activity or ambulation. Patient states the pain does interfere with her ability to perform activities of daily living such as cooking or cleaning. Patient states that she does have to stop and sit down due to the worsening pain. She states she cannot stand for long periods of time. Patient has had previous lumbar epidurals that did provide significant improvement. She is interested in repeating this in jection. She is prescribed lorazepam and oxycodone from her primary care provider. Her Jacob has been reviewed and is appropriate. Review of Systems: General: No recent weight changes, no fever, no sleep disturbances Respiratory: No cough, no shortness of air, no recurring pulmonary infections Cardiovascular/peripheral vascular: No chest pain, no palpitations, no edema, no shortness of breath Gastrointestinal: No new onset incontinence, normal bowel movements reported Genitourinary: No new onset incontinence Musculoskeletal: Low back pain, bilateral leg pain Psychiatric: [Normal mood/affect] Neurological: [Denies weakness in extremities], [denies balance issues] Objective:: Physical Exam: General: Alert and oriented x3, no acute distress, pleasant and cooperative Lungs: Respirations even and unlabored, symmetrical chest expansion Eyes: PERRL Musculoskeletal: Flexion and extension of lumbar [spine] somewhat guarded secondary to pain, [antalgic gait noted] Neurological: Speech clear, no gross sensory deficit Assessment:: 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 Patient has previously had her last lumbar epidural back in November 2022 that did provide 50% improvement or more lasting several months. I have discussed with patient that she may benefit from repeat lumbar epidural steroid injection. Risk and benefits were discussed with the patient and she would like to proceed forward with this plan of care. Patient has tried and failed conservative therapy. Patient will be scheduled for an L THELMA L4-L5 under fluoroscopy. Patient has been instructed to contact the clinic with any concerns before the next appointment. Dr. Gonzalez has reviewed this note and agrees with this plan of care. This note was dictated using voice recognition software and make contain errors or omissions. [facility] Disclaimer: The information contained in this section may have been updated after the patient was seen, as this information can be updated by other users. Medical History Anxiety Chronic low back pain Former smoker Frequent UTI Heart murmur HTN (hypertension) Hypothyroid Seizures Spinal stenosis Spinal stenosis in cervical region Surgical History No pertinent past surgical history Family History (Reviewed 03/18/23 @ :00 by Haily Benítez MA) Other Family history of cancer Family history of heart attack Social History Smoking Status: Former smoker tobacco type: cigarettes alcohol intake: never substance use type: denies use current occupational status: other Travel in the last 8 weeks: None caregiver/support person: Yes (daughter) household members: family housing: house lives independently: No marital status: education level: middle school current occupational exposures/hazards: No caffeine: Yes special lion needs: No agree to transfusion: No
== END 2023-11-10 23:59 | disposition home or self-care (01) ==
LOC: SC.PAIN 13:04
PROVIDERS: PCP Family Medicine; Visit Provider Nurse Practitioner Family
DX: M51.14 Intervertebral disc disorders with radiculopathy, thoracic region (principal); M51.16 Intervertebral disc disorders with radiculopathy, lumbar region; M46.1 Sacroiliitis, not elsewhere classified; M25.551 Pain in right hip; M70.60 Trochanteric bursitis, unspecified hip; M17.0 Bilateral primary osteoarthritis of knee; M84.48XS Pathological fracture, other site, sequela
CPT/HCPCS: 99212; G0463

== ENCOUNTER 2023-11-30 13:26 | Day surgery (SDC) | payer MEDICARE, MEDICAID, SELFPAY ==
[2023-11-30 13:48] VITALS: BP 162/77; PULSE 71; RESP 18; TEMP 36.6; O2SAT 98; BMI 27.4
[2023-11-30 13:55] VITALS: BP 175/89; PULSE 75; RESP 18; TEMP 36.6; O2SAT 98
--- NOTE | 2023-11-30 13:57 | EXP.PAIN.PRO ---
Procedure Date: 11/30/23 Time: 14:00 Anesthesiologist:: Jim Ventura CRNA Complications:: None Pre-procedure Diagnosis:: Degenerative disc lumbar spine multilevels. Lumbar radiculopathy. Post-procedure Diagnosis:: Same. Indications for Procedure:: Patient is a very pleasant 83-year-old female comes our clinic today for lumbar epidural steroid injection at the L4-5 level. Patient describes low back pain as constant, dull, aching. Patient also reports bilateral hip and leg radicular symptoms. She rates her pain 7/10. Procedure Details:: Procedure: Lumbar epidural steroid injection under fluoroscopy Informed consent was obtained and the risks and benefits of the procedure were explained to the patient. The patient was taken to the procedure room and noninvasive monitors placed, including noninvasive blood pressure cuff and pulse oximeter. The back was viewed using C-arm Fluoroscopy and prepped using Chloraprep as a cleansing solution and the L4-L5 interspace was palpated. Skin and subcutaneous tissues were anesthetized using lidocaine 1.5% and a 25-gauge needle. After this, an 18-gauge Touhy epidural needle was placed into the L4-L5 interspace and advanced using fluoroscopic guidance and loss of resistance to air until the epidural space was encountered. After confirmation of needle placement in the epidural space, with dye, a solution containing normal saline, 3 mL and Depo-Medrol 80 mg were incrementally injected into the lumbar epidural space. The patient tolerated the procedure well with no complications. The patient was observed in the Pain Clinic and then discharged home neurologically intact. Plan and Disposition:: Patient was discharged without incident.
[2023-11-30] MEDS: methylPREDNISolone ACETATE 80MG/ML VIAL 80 MG (14:04)
== END 2023-11-30 13:58 | disposition home or self-care (01) ==
PROVIDERS: PCP Family Medicine; Visit Provider Nurse Anesthetist, Certified Registered
DX: M51.16 Intervertebral disc disorders with radiculopathy, lumbar region (principal)
CPT/HCPCS: 62323; J1010

== ENCOUNTER 2023-12-01 16:20 | Outpatient (CLI) | payer MEDICARE, MEDICAID, SELFPAY ==
--- NOTE | 2023-12-01 16:27 | XR_ITS ---
PROCEDURE INFORMATION: Exam: XR Right Shoulder Exam date and time: 12/01/2023 4:53 PM Age: 83 years old Clinical indication: Pain; Shoulder; Right; Additional info: Acute pain right shoulder TECHNIQUE: Imaging protocol: Radiologic exam of the right shoulder. Views: 2 or more views. COMPARISON: CR XR CHEST 2V 09/27/2023 3:20 PM FINDINGS: Bones/joints: There is an atypical alignment of the acromion and clavicle suggesting some element of underlying acromioclavicular pathology, consider CT or MRI for further evaluation as warranted. There is some calcium deposition over the rotator cuff insertions which is suspicious for calcific tendinopathy . Lungs: Limited visualization of the hemithorax demonstrates no acute pathology. Soft tissues: Normal. IMPRESSION: 1. There is an atypical alignment of the acromion and clavicle suggesting some element of underlying acromioclavicular pathology, consider CT or MRI for further evaluation as warranted. 2. 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
== END 2023-12-01 23:59 | disposition home or self-care (01) ==
LOC: RAD 16:22
PROVIDERS: PCP Family Medicine; Visit Provider Family Medicine
DX: M25.511 Pain in right shoulder (principal)
CPT/HCPCS: 73030

== ENCOUNTER 2023-12-20 13:13 | Outpatient (POV) | payer MEDICARE, MEDICAID, SELFPAY ==
[2023-12-20 13:29] VITALS: BP 140/69; PULSE 74; RESP 18; O2SAT 100; BMI 282457.7
--- NOTE | 2023-12-20 13:36 | A.OFFVIS_ITS ---
[facility] Pain Management SOAP Note Subjective:: Patient is a pleasant 83-year-old female who presents today for follow-up lumbar epidural steroid injection L4-L5 on 11/30/2023. Patient does state that she had at least 50% improvement following this injection. She states that all of her right-sided leg symptoms have resolved. Patient does state that she has been experiencing more pain in and around her low back along the left hip. Patient states that she did even have a knot there the last couple of days that is very tender to touch. Patient states the pain goes into her hip and buttocks area and describes it as a constant aching, throbbing sensation. Patient states that it does cause significant disability and does limit her ability to perform ADLs such as cooking and cleaning. Patient is interested if we can do any form of injection to help provide additional relief for this pain. Patient states that she did even put on lidocaine patch on the area due to the worsening pain. Patient has tried and failed conservative treatment such as oral medication, heat and ice, topicals, at home stretching exercise between injections. Her Jacob has been reviewed and is appropriate. Review of Systems: General: No recent weight changes, no fever, no sleep disturbances Respiratory: No cough, no shortness of air, no recurring pulmonary infections Cardiovascular/peripheral vascular: No chest pain, no palpitations, no edema, no shortness of breath Gastrointestinal: No new onset incontinence, normal bowel movements reported Genitourinary: No new onset incontinence Musculoskeletal: Low back pain, left hip pain Psychiatric: [Normal mood/affect] Neurological: [Denies weakness in extremities], [denies balance issues] Objective:: Physical Exam: General: Alert and oriented x3, no acute distress, pleasant and cooperative Lungs: Respirations even and unlabored, symmetrical chest expansion Eyes: PERRL Musculoskeletal: Flexion and extension of lumbar [spine] somewhat guarded secondary to pain, [antalgic gait noted] point tenderness along left SI with positive left Ryder's, Candelaria's, Gaenslen's, compression and distraction exam Neurological: Speech clear, no gross sensory deficit Assessment:: Degenerative disc disease of the thoracic and lumbar spine with thoracic and lumbar radiculopathy symptoms, low back pain, mid back pain, sacroiliitis, right hip pain, greater trochanteric bursitis, osteoarthritis bilateral knees, t horacic compression fracture Plan:: Patient is experiencing worsening pain throughout her low back along the left side and into her left hip. Patient did have extreme point tenderness along her left SI with a positive left Ryder's, Candelaria's, Gaenslen's, compression and distraction exam. I have discussed with the patient that she may benefit from a left SI injection. Risk and benefits were discussed with the patient and she would like to proceed forward with this plan of care. Patient has tried and failed conservative therapy including continued at home exercising and stretching between injections. Patient will be submitted for a left SI injection under fluoroscopy. Patient has had previous SI injections that did provide significant relief of more than 80% lasting approximately 3 months. Her last SI injection was in October. Patient has been instructed to contact the clinic with any concerns before the next appointment. Dr. Gonzalez has reviewed this note and agrees with this plan of care. This note was dictated using voice recognition software and make contain errors or omissions. [facility] Disclaimer: The information contained in this section may have been updated after the patient was seen, as this information can be updated by other users. Medical History Anxiety Chronic low back pain Former smoker Frequent UTI Heart murmur HTN (hypertension) Hypothyroid Seizures Spinal stenosis Spinal stenosis in cervical region Surgical History No pertinent past surgical history Family History Other Family history of cancer Family history of heart attack Social History Smoking Status: Former smoker tobacco type: cigarettes alcohol intake: never substance use type: denies use current occupational status: other Travel in the last 8 weeks: None caregiver/support person: Yes (daughter) household members: family housing: house lives independently: No marital status: education level: middle school current occupational exposures/hazards: No caffeine: Yes special lion needs: No agree to transfusion: No
== END 2023-12-20 23:59 | disposition home or self-care (01) ==
LOC: SC.PAIN 13:13
PROVIDERS: PCP Family Medicine; Visit Provider Nurse Practitioner Family
DX: M46.1 Sacroiliitis, not elsewhere classified (principal); M51.14 Intervertebral disc disorders with radiculopathy, thoracic region; M51.16 Intervertebral disc disorders with radiculopathy, lumbar region; M25.551 Pain in right hip; M70.60 Trochanteric bursitis, unspecified hip; M17.0 Bilateral primary osteoarthritis of knee
CPT/HCPCS: 99212; G0463

== ENCOUNTER 2024-01-04 12:53 | Day surgery (SDC) | payer MEDICARE, MEDICAID, SELFPAY ==
[2024-01-04 13:01] VITALS: BP 147/75; PULSE 77; RESP 18; TEMP 36.5; O2SAT 95; BMI 28.3
[2024-01-04] MEDS: methylPREDNISolone ACETATE 80MG/ML VIAL 80 MG (13:25)
[2024-01-04] MEDS: BUPIVACAINE 0.25% 10ML INJ 25 MG IJ (13:25)
[2024-01-04] MEDS: LIDOCAINE 1% 5ML PF VIAL 5 ML (13:25)
--- NOTE | 2024-01-04 13:27 | EXP.PAIN.PRO ---
Procedure Date: 01/04/24 Time: 13:10 Anesthesiologist:: Jim Ventura CRNA Complications:: None Pre-procedure Diagnosis:: Left sacroiliitis Post-procedure Diagnosis:: Same Indications for Procedure:: Patient is a very pleasant 83-year-old female comes to clinic today for left sacroiliac joint injection of cortisone. Patient describes left low lumbar back pain as well as left posterior hip pain is constant, dull, aching. She rates her pain 7/10. Patient reports difficulty transitioning from sitting to standing. She rates her pain 9/10. Procedure Details:: Procedure: Left sacroiliac injection under fluoroscopy Informed consent was obtained and the risk and benefits of the procedure were explained to the patient.~ The patient was taken to the procedure room and noninvasive monitors were placed including noninvasive blood pressure cuff and pulse oximeter.~ The patient was placed prone on the procedure table.~ The~ left hip was cleansed using Betadine as a cleansing solution.~ C-arm fluorosocpy was used to view the left SI joint.~ The skin and subcutaneous tissues were anesthetized using Lidocaine 1.5% and a 25-gauge needle.~ After this, a 22-gauge spinal needle was inserted under fluoroscopic guidance into the inferior aspect of the left SI joint.~ Omnipaque dye was injected and a good spread was seen throughout the joint.~ After this, approximately 5 mL of bupivacaine 0.25% and Depo-Medrol 40 mg was incrementally injected into the sacroiliac joint.~ The patient tolerated the procedure well with no complications.~ The patient was observed in the Pain Clinic for a period of 30-45 minutes, then discharged home neurologically intact.~ Plan and Disposition:: Patient was discharged without incident.
[2024-01-04 13:36] VITALS: BP 196/74; PULSE 76; RESP 18; O2SAT 96
== END 2024-01-04 13:38 | disposition home or self-care (01) ==
PROVIDERS: PCP Family Medicine; Visit Provider Nurse Anesthetist, Certified Registered
DX: M46.1 Sacroiliitis, not elsewhere classified (principal)
CPT/HCPCS: 27096; G0260; J1010

== ENCOUNTER 2024-01-11 11:27 | Inpatient (IN) | payer MEDICARE, MEDICAID, SELFPAY ==
[2024-01-11] VITALS (10 sets, daily range): BP systolic 69–182; BP diastolic 40–129; PULSE 46–77; RESP 16–18; TEMP 36.7–36.8; O2SAT 88–97; BMI 28.3; BMI 29.2
--- NOTE | 2024-01-11 11:37 | ECG_ITS ---
APPROVED REPORT Exam: Resting ECG HR:75 bpm ECG Measurements Heart Rate 75 AXES QRSd 93 QRS -23 QT 404 T 102 QTc 433 Conclusion Sinus rhythm Left axis deviation Incomplete right bundle branch block T wave inversions lateral leads without reciprocal change Electronically signed by : DELLA KIDD, 01/11/2024 16:03:40
--- NOTE | 2024-01-11 11:42 | XR_ITS ---
FINAL REPORT CLINICAL HISTORY: shortness of air weakness COMPARISON: 09/27/2023 FINDINGS: SINGLE-VIEW CHEST There is cardiomegaly with pulmonary vascular congestion. The mediastinum is normal. There are bibasilar opacities, may represent atelectasis or pneumonia. There is no pneumothorax. IMPRESSION: Bibasilar atelectasis or pneumonia. Reviewed, Interpreted and Dictated by Juwan Lorenzo III, MD Transcribed by Priscila Saenz Authenticated and [facility]
--- NOTE | 2024-01-11 11:44 | PC.NURSE ---
Dr. Loya at bedside
--- NOTE | 2024-01-11 11:45 | PC.NURSE ---
Notified respiratory of VBG order and that the blood is in the lab.
[2024-01-11 11:50] LABS: Basophils # 0.1 K/mm3 (0-0.2); Basophils % 0.6 % (0.1-2.0); Eosinophils # 0.3 K/mm3 (0.0-0.4); Eosinophils % 3.2 % (0.1-12.0); Hematocrit 37.7 % (37.0-47.0); Lymphocytes # 2.3 K/mm3 (0.7-4.5); Lymphocytes % 21.9 % (10-50); Mean Corpuscular HGB Conc 34.6 g/dL (31.8-35.4); Mean Corpuscular Hemoglobin 34.8 pg (27.0-31.2); Mean Corpuscular Volume 100.5 fl (81-99); Mean Platelet Volume 9.4 fl (7.4-10.4); Monocytes # 0.6 K/mm3 (0.1-1.0); Monocytes % 5.7 % (1.7-9.3); Neutrophils # 7.2 K/mm3 (1.8-7.8); Neutrophils % 68.6 % (37.0-80.0); Platelet Count 218 K/mm3 (142-424); Red Blood Count 3.75 M/mm3 (4.20-5.40); Red Cell Distribution Width 13.5 % (11.5-17.5); White Blood Count 10.5 K/mm3 (4.8-10.8)
--- NOTE | 2024-01-11 11:52 | CT_ITS ---
FINAL REPORT TECHNIQUE: Thin section axial CT with IV contrast supplemented with multiplanar reconstruction under CT angiogram protocol. This study was performed with techniques to keep radiation doses as low as reasonably achievable (ALARA). Individualized dose reduction techniques using automated exposure control or adjustment of mA and/or kV according to the patient''s size were employed. NASCET criteria was utilized during interpretation. CLINICAL HISTORY: new left sided weakness and drift COMPARISON: 01/03/2021 FINDINGS: Aortic arch: Arch shows no significant narrowing. Great vessel origins are widely patent. Right carotid: There is calcified plaque at the right carotid bulb with mild stenosis of the proximal right internal carotid artery. Left carotid: There is calcified plaque at the left carotid bulb without significant stenosis. Vertebral: Left vertebral artery is dominant. No significant stenosis is present. There is a 13 mm peripherally calcified right thyroid nodule which is nonspecific. Consider follow-up ultrasound in 6 months. Diffuse degenerative changes are noted in the cervical spine. IMPRESSION: No evidence of occlusion or significant stenosis. Reviewed, Interpreted and Dictated by Juwan Lorenzo III, MD Transcribed by Ilana Yo Authenticated and [facility]
--- NOTE | 2024-01-11 11:52 | CT_ITS ---
FINAL REPORT TECHNIQUE: Thin section axial CT with IV contrast supplemented with multiplanar reconstruction under CT angiogram protocol. 3-D reconstructions were performed. This study was performed with techniques to keep radiation doses as low as reasonably achievable (ALARA). Individualized dose reduction techniques using automated exposure control or adjustment of mA and/or kV according to the patient''s size were employed. CLINICAL HISTORY: new left sided weakness and drift COMPARISON: 01/03/2021 FINDINGS: No aneurysm is seen. Major intracranial vessels are patent without significant stenosis. IMPRESSION: No evidence of occlusion or significant stenosis. Reviewed, Interpreted and Dictated by Juwan Lorenzo III, MD Transcribed by Ilana Yo Authenticated and [facility]
--- NOTE | 2024-01-11 11:52 | CT_ITS ---
FINAL REPORT CLINICAL HISTORY: new left sided weakness and drift COMPARISON: 03/31/2023 FINDINGS: Axial images of the head were obtained without contrast. Coronal reformatted images were also obtained. This study was performed with techniques to keep radiation doses as low as reasonably achievable (ALARA). Individualized dose reduction techniques using automated exposure control or adjustment of mA and/or kV according to the patient''s size were employed. There is generalized age-appropriate atrophy. Periventricular low-attenuation areas are seen consistent with mild chronic ischemic changes. There is no evidence of intracranial hemorrhage or mass. There is no evidence of acute infarct. There is no evidence of shift of the midline structures. No skull abnormality is seen on the bone window images. IMPRESSION: Atrophy and mild periventricular chronic ischemic changes. No acute intracranial abnormality identified. Reviewed, Interpreted and Dictated by Juwan Lorenzo III, MD Transcribed by Ilana Yo Authenticated and [facility]
[2024-01-11 11:53] LABS: Lactate Venous 1.6 mmol/L (0.4-2.0); VBG Base Excess -7.3 mmol/L (-2.4-2.3); VBG HCO3 19.5 mmol/L (23-30); VBG Oxygen Saturation 85.8 % (50-70); VBG PCO2 42.8 mmol/L (35-51); VBG PH 7.28 mmol/L (7.31-7.41); VBG PO2 54.4 mmol/L (28-40); VBG Total CO2 20.8 mmol/L (23-27)
[2024-01-11] MEDS: LACTATED RINGERS 1000ML 1,000 ML 999 ML IV (12:00)
--- NOTE | 2024-01-11 12:01 | HMH.EDGENADL ---
Discharge Plan Disposition Patient Disposition: Admitted Prescriptions Prescriptions: No Action irbesartan 150 mg tablet 150 mg PO DAILY gabapentin 300 mg capsule 600 mg PO BID Patient Comments: TAKE TWO CAPSULES BY MOUTH TWICE DAILY MAY CAUSE DROWSINESS levothyroxine 25 mcg tablet 25 mcg PO DAILY mirabegron 50 MG tablet extended release 24 hr 50 mg PO DAILY celecoxib 100 MG capsule 100 mg PO DAILY meclizine 25 MG tablet 25 mg PO BIDP PRN (Reason: Motion Sickness) esomeprazole magnesium 40 MG capsule,delayed release(DR/EC) 40 mg PO DAILY duloxetine 60 MG capsule,delayed release(DR/EC) 60 mg PO DAILY alendronate 70 MG tablet 70 mg PO WEEKLY docusate sodium 250 MG capsule 250 mg PO BIDP PRN (Reason: Constipation) oxycodone 10 MG tablet 10 mg PO BID cholecalciferol (vitamin D3) 125 MCG capsule 5,000 unit PO DAILY cyanocobalamin (vitamin B-12) 500 MCG tablet,disintegrating 500 mcg sublingual DAILY furosemide 20 mg tablet 20 mg PO DAILY donepezil 5 mg tablet 5 mg PO HS Patient Comments: TAKE ONE TABLET BY MOUTH EVERY DAY AT BEDTIME lorazepam 1 mg tablet 1 mg PO BID Patient Comments: TAKE ONE TABLET BY MOUTH TWICE DAILY MAY CAUSE DROWSINESS memantine 5 mg tablet 5 mg PO BID Patient Comments: TAKE ONE TABLET BY MOUTH TWICE DAILY Linzess 290 mcg capsule 290 mcg PO DAILY Patient Comments: TAKE ONE CAPSULE BY MOUTH EVERY DAY brivaracetam 75 mg Tablet 75 mg PO BID Qty: 60 0RF diazepam 2 mg tablet 4 mg PO ONCE Qty: 2 0RF Rx Instructions: Take 1hr prior to MRI imaging for pain/anxiety tizanidine 4 mg tablet 4 mg PO Q8H PRN (Reason: muscle spasticity) Qty: 90 0RF polyethylene glycol 3350 [Miralax] 17 gram Powder In Packet 17 g PO DAILY loratadine 10 mg Tablet 10 mg PO DAILY PRN (Reason: Allergy Symptoms) multivit with min-folic acid [One-A-Day Women's 50 Plus] 0.4 mg Tablet 1 tab PO DAILY Benefiber Plus Calcium 3 gram-300 mg/8.8 gram Powder 3 g PO DAILY cefdinir 300 mg capsule 300 mg PO BID 7 Days Qty: 14 0RF Referrals Follow up/Referrals: Triston Campos MD [Primary Care Provider] - See instructions Clinical Impressions Clinical Impression: Acute renal failure, Weakness Discharge ED Provider: Dylon Loya General Adult [facility] General Chief complaint: Weakness Stated complaint: weakness, difficulty walking Time Seen by Provider: 01/11/24 11:29 Mode of Arrival: Wheelchair Source of Information: Relative Limitations: No Limitations Description of Symptoms (Recalled from ER Triage Doc. by RN): Patients daughter reports pt is more weak than normal, typically able to get around the house with a walker but not able to since yesterday morning, more drowsy than normal and complaining of pain in her legs. Patient does take pain medication for chronic back pain and has hx of dementia. History of Present Illness HPI narrative: Please note that above description of symptoms, in this electronic medical record under categorization of recalled from ER triage doctor by RN are reflective of an initial nursing assessment, however, is not reflective of my full history and physical exam that was personally taken and clarified. Consequentially, this preceding description of symptoms, which may include the patient's categorized chief complaint in the EMR, do not reflect my personal clinical impression, and the ultimate description of history of present illness and patient stated complaints should be deferred to this section of the note. Unless stated otherwise or congruent with this section of the note, additional signs, symptoms, or incongruence should be interpreted as inaccurate with my clinical impression. Related Data Home Medications Medication Instructions Recorded Confirmed celecoxib 100 mg capsule 100 mg PO DAILY Arthritis 01/02/21 01/04/24 duloxetine 60 mg capsule,delayed 60 mg PO DAILY Depression 01/02/21 01/04/24 release esomeprazole magnesium 40 mg 40 mg PO DAILY acid reflux 01/02/21 01/04/24 capsule,delayed release meclizine 25 mg tablet 25 mg PO BIDP PRN Motion Sickness 01/02/21 01/04/24 mirabegron 50 mg tablet,extended 50 mg PO DAILY overactive bladder 01/02/21 01/04/24 release 24 hr alendronate 70 mg tablet 70 mg PO WEEKLY Osteoporosis 01/03/21 01/04/24 cholecalciferol (vitamin D3) 125 5,000 unit PO DAILY Supplement 01/03/21 01/04/24 mcg (5,000 unit) capsule cyanocobalamin (vitamin B-12) 500 500 mcg sublingual DAILY Supplement 01/03/21 01/04/24 mcg disintegrating tablet,sublingual docusate sodium 250 mg capsule 250 mg PO BIDP PRN Constipation 01/03/21 01/04/24 oxycodone 10 mg tablet 10 mg PO BID chronic pain 01/03/21 01/04/24 gabapentin 300 mg capsule 600 mg PO BID nerve pain 01/16/21 01/04/24 levothyroxine 25 mcg tablet 25 mcg PO DAILY thyroid 01/16/21 01/04/24 furosemide 20 mg tablet 20 mg PO DAILY Fluid 06/17/21 01/04/24 irbesartan 150 mg tablet 150 mg PO DAILY High blood pressure 07/07/21 01/04/24 donepezil 5 mg tablet 5 mg PO HS memory 08/20/22 01/04/24 linaclotide 290 mcg capsule 290 mcg PO 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 lorazepam 1 mg tablet 1 mg PO BID Anxiety 08/20/22 01/04/24 memantine 5 mg tablet 5 mg PO BID memory 08/20/22 01/04/24 loratadine 10 mg tablet 10 mg PO DAILY PRN Allergy Symptoms 03/31/23 01/04/24 multivitamin with minerals-folic 1 tab PO DAILY Supplement 03/31/23 01/04/24 acid 0.4 mg tablet (One-A-Day Women's 50 Plus) polyethylene glycol 3350 17 gram 17 g PO DAILY Constipation 03/31/23 01/04/24 oral powder packet (Miralax) wheat dextrin 3 gram-calcium 3 g PO DAILY Supplement 03/31/23 01/04/24 gluc,lactate 300 mg/8.8 gram oral powder Previous Rx's Medication Instructions Recorded brivaracetam 75 mg tablet 75 mg PO BID seizure #60 tabs 08/21/22 diazepam 2 mg tablet 4 mg (2 x 2 mg) PO ONCE prior to 02/01/23 mri for pain/anxiety #2 tabs tizanidine 4 mg tablet 4 mg PO Q8H PRN muscle spasticity 02/22/23 #90 tabs cefdinir 300 mg capsule 300 mg PO BID 7 days #14 caps 03/31/23 Allergies Allergy/AdvReac Type Severity Reaction Status Date / Time codeine Allergy Intermediate Rash Verified 01/04/24 13:02 [facility] Disclaimer: The information contained in this section may have been updated after the patient was seen, as this information can be updated by other users. Medical History Anxiety Chronic low back pain Former smoker Frequent UTI Heart murmur HTN (hypertension) Hypothyroid Seizures Spinal stenosis Spinal stenosis in cervical region Surgical History No pertinent past surgical history Family History Other Family history of cancer Family history of heart attack Social History Smoking Status: Never smoker alcohol intake: never substance use type: denies use current occupational status: retired Travel in the last 8 weeks: None caregiver/support person: Yes (daughter) household members: family housing: house lives independently: No marital status: education level: middle school current occupational exposures/hazards: No caffeine: Yes special lion needs: No agree to transfusion: No ROS Obtained: Yes All systems reviewed & no additional complaints except as documented Physical Exam General General appearance: in no apparent distress and other (Sleepy, arousable to voice.) Head Head exam: atraumatic and normocephalic Eye Eye exam: Present normal appearance, PERRL and EOMI ENT ENT exam: Present mucous membranes dry Neck Neck exam: Present normal inspection, full ROM and trachea midline Respiratory Respiratory exam: Present normal lung sounds bilaterally; Absent respiratory distress, wheezes, stridor, accessory muscle use or prolonged expiratory phase Cardiovascular Cardiovascular exam: Present regular rate, normal rhythm and other (Pulses equal symmetric in upper and lower extremities) Abdominal Exam Abdominal exam: Present soft; Absent distention, tenderness or pulsatile mass Extremities Exam Extremities exam: Absent edema Neurological Exam Neurological exam: Present oriented X3 (Oriented to person) and motor sensory deficit (Weakness left upper extremity with associated drift.); Absent CN II-XII intact (Nasolabial fold flattening on the left) or normal gait (Deferred given weakness) Skin Skin exam: Present warm and dry; Absent diaphoresis or erythema Medical Decision Making Medical Records Medical records reviewed: Yes I reviewed the patient's medical records. Jacob Inquiry Pt receiving controlled substance: No Jacob was queried for this patient: No Vital Signs: 01/11/24 11:36 01/11/24 12:00 01/11/24 12:30 Temperature 98.0 F Temperature Source Oral Pulse Rate 77 57 L Pulse Rate [Right Brachial] 69 Respiratory Rate 18 16 16 Blood Pressure 97/48 L 69/40 L Blood Pressure [Right Arm] 105/45 L Blood Pressure Mean 76 49 Blood Pressure Mean [Right Arm] 65 02 Sat by Pulse Oximetry 88 L 90 L 97 Oxygen Delivery Method Room Air 01/11/24 14:01 Temperature Temperature Source Pulse Rate 75 Pulse Rate [Right Brachial] Respiratory Rate 16 Blood Pressure 182/129 H Blood Pressure [Right Arm] Blood Pressure Mean 146 Blood Pressure Mean [Right Arm] 02 Sat by Pulse Oximetry 97 Oxygen Delivery Method Lab Data Lab Results 01/11/24 11:40: WBC 10.5, RBC 3.75 L, Hgb 13.0, Hct 37.7, MCV 100.5 H, MCH 34.8 H, MCHC 34.6, RDW 13.5, Plt Count 218, MPV 9.4, Neut % (Auto) 68.6, Lymph % (Auto) 21.9, [place] % (Auto) 5.7, Eos % (Auto) 3.2, Baso % (Auto) 0.6, Neut # (Auto) 7.2, Lymph # (Auto) 2.3, [place] # (Auto) 0.6, Eos # (Auto) 0.3, Baso # (Auto) 0.1, PT 11.3, INR 1.01, APTT 28.3, Sodium 136, Potassium 3.7, Chloride 103, Carbon Dioxide 23, Anion Gap 13.7, BUN 73 H, Creatinine 4.40 H, Estimated Creat Clear 11, Estimated GFR 10 L*, Est GFR ( Amer) 12 L*, Glucose 103 H, Calcium 8.9, Total Bilirubin 0.8, AST 62 H, ALT 26, Alkaline Phosphatase 77, Troponin I 0.05 H, NT-Pro-B Natriuret Pep 1410 H, Total Protein 6.9, Albumin 3.7, Globulin 3.2, Albumin/Globulin Ratio 1.2 01/11/24 11:42: VBG pH 7.28 L, VBG pCO2 42.8, VBG pO2 54.4 H, VBG HCO3 19.5 L, VBG Total CO2 20.8 L, VBG O2 Saturation 85.8 H, VBG Base Excess -7.3 L, VBG Lactic Acid 1.6 01/11/24 13:40: Urine Color Yellow, Urine Appearance Clear, Urine pH 5.5, Ur Specific Oriental >= 1.030, Urine Protein Negative, Urine Glucose (UA) Negative, Urine Ketones Negative, Urine Blood Negative, Urine Nitrate Negative, Urine Bilirubin Negative, Urine Urobilinogen 0.2, Ur Leukocyte Esterase Trace, Urine RBC None, Urine WBC 3-5, Ur Squamous Epith Cells 3-5, Calcium Oxalate Crystal Trace, Urine Bacteria Trace, Hyaline Casts Occasional 01/11/24 11:40 01/11/24 11:40 Orders (Tests/Meds): ED MEDICATIONS Discontinued Medications Generic Name Dose Route Start Last Admin Trade Name Freq PRN Reason Stop Dose Admin Lactated Ringer's 1,000 mls @ 999 mls/hr 01/11/24 11:52 01/11/24 12:00 Lactated Ringer's 1000 Ml Bag IV 01/11/24 12:52 999 mls/hr .Q1H1M ONE Administration Iopamidol 100 ml 01/11/24 13:15 01/11/24 13:19 Iopamidol-370 (76%);100ml Bottle IV 01/11/24 13:16 100 ml ONCE ONE Administration Sodium Chloride 10 ml 01/11/24 13:15 01/11/24 13:19 Sodium Chloride 0.9% 10ml Syr (Rad Only) IV 01/11/24 13:16 10 ml ONCE ONE Administration Sodium Chloride 50 ml 01/11/24 13:15 01/11/24 13:18 0.9 % Sodium Chloride 50 Ml Vial IV 01/11/24 13:16 50 ml ONCE ONE Administration ORDERS Category Date Time Status CT angio head Stat Cat Scan 01/11/24 11:[address] angio neck Stat Cat Scan 01/11/24 11:[address] head/brain wo con Stat Cat Scan 01/11/24 11:52 Taken XR chest portable Stat Exams 01/11/24 11:42 Completed CBC w/Auto Diff [Complete Blood Count Auto Diff] Stat Lab 01/11/24 11:40 Completed Comprehensive Metabolic Panel Stat Lab 01/11/24 11:40 Completed INR [Prothrombin Time INR] Stat Lab 01/11/24 11:40 Completed NT Pro Brain Natriuretic Pep. Stat Lab 01/11/24 11:40 Completed PTT [Activated Partial Thrombo Time] Stat Lab 01/11/24 11:40 Completed Troponin I Q3H Lab 01/11/24 14:15 Received Troponin I Q3H Lab 01/11/24 17:45 Ordered Troponin I Stat Lab 01/11/24 11:40 Completed Urinalysis and Microscopic Stat Lab 01/11/24 13:40 Completed Venous Blood Gas Stat RT 01/11/24 11:42 Completed HEART Score History (anamnesis): Slightly suspicious ECG: Non-specific disturbance Age: >65 years Risk factors: 1-2 risk factors Troponin: </= normal limit HEART Score: 4 Medical Decision Narrative: 83-year-old female history of dementia, hypertension, hyperlipidemia, frequent UTI presenting with weakness. Family providing history. Patient daughter states that patient has been generally weak, unable to ambulate even to bedside commode to use the bathroom. This has been going on since yesterday, 01/09. Patient typically falling toward the left. No more confusion than usual, but she is generally weak and more tired. Patient's daughter states that patient's blood pressure has been all over the place and inconsistent. Patient has any complaints at this time. Patient's daughter adamantly denies falls, as does patient. History was obtained via conversation with patient and daughter. On arrival, patient hemodynamically stable, alert, oriented to person, appropriate, GCS 14, moving all extremities spontaneously, pupils equal and reactive to light. Full physical exam performed and significant for tired appearing woman in no acute distress. GCS 14. Cardiopulmonary exam within normal notes. Abdomen soft, nontender, nondistended. Patient's neurologic exam concerning for left upper extremity drift, bilateral lower extremity weakness, right greater than left. She also has difficulty with understanding finger-nose left upper extremity concerning for potential neglect. Differential includes sepsis, urinary tract infection, pneumonia, metabolic, Cardiologic, ACS, PA, among others. Independent interpretation of EKG shows sinus rhythm 75 beats a minute and intervals within normal limits. [place] normal. QRS narrow at 93, QTc 433. T wave inversions in 1 and aVL, unknown if these are new. Patient was given 1 L fluids for symptomatic management and correction of underlying abnormalities. Workup independently interpreted and significant for acute renal failure with RUFINA creatinine 4.4 and BUN 73. LFTs nonactionable, BNP elevated at 1400, troponin 0.05. Chest x-ray without acute cardiopulmonary airspace disease. CT head without acute intracranial hemorrhage, CTA head and neck without acute CVA. See radiology read for full review of final results. Heart score 4. Patient's PCP was contacted and case was discussed at length, patient be admitted for acute renal failure. Fluids given. Because patient high risk for clinical decompensation, deemed appropriate for inpatient admission. Results were relayed to patient daughter who voiced understanding and patient was agreeable to inpatient admission and management. Patient was admitted to the hospital for further definitive management. Field Producer disclaimer Much of this encounter note is an electronic campus security director spoken language to printed text. Electronic campus security director of the spoken language may permit errors. Although I have reviewed the note, some errors may still exist. Critical Care Critical Care Time Critical Care Time: Yes (renal) Attestation: On 01/11/24, the high probability of a clinically significant, sudden or life threatening deterioration of the following system(s) required my full and direct attention, intervention and personal management. The time I documented below is in addition to time spent performing reported procedures but includes the following listed in this critical care notation. Total Time Total Critical Care Time: 35
[2024-01-11 12:06] LABS: Activated Partial Thrombo Time 28.3 seconds (22.8-30.6)
[2024-01-11 12:09] LABS: Chloride 103 mmol/L (98-107); Potassium 3.7 mmoL/L (3.5-5.1); Sodium 136 mmol/L (136-145)
[2024-01-11 12:11] LABS: Alanine Aminotransferase 26 U/L (12-78); Aspartate Amino Transferase 62 U/L (14-36); Blood Urea Nitrogen 73 mg/dl (7-17); Creatinine Clearance Estimated 11 mL/min (50-200); Estimated Glomerular Filt Rate 10 ml/min (>60); GFR (African American) 12 ML/MIN (>60)
[2024-01-11 12:12] LABS: Albumin Level 3.7 g/dl (3.5-5.0); Albumin/Globulin Ratio 1.2 (1.1-1.8); Alkaline Phosphatase 77 U/L (38-126); Anion Gap 13.7 mEq/L (5-15); Bilirubin,Total 0.8 mg/dl (0.2-1.3); Calcium 8.9 mg/dl (8.4-10.2); Carbon Dioxide 23 mmol/L (22.0-30.0); Globulin 3.2 g/dL (1.3-3.2); Glucose 103 mg/dl (74-100); Total Protein,Serum 6.9 g/dl (6.3-8.2)
[2024-01-11 12:16] LABS: INR 1.01 (0.9-1.1); Prothrombin Time 11.3 seconds (10.1-12.5)
[2024-01-11 12:23] LABS: NT Pro Brain Natriuretic Pep. 1410 pg/mL (0-450)
[2024-01-11 12:26] LABS: Troponin I 0.05 ng/ml (0.00-0.034)
[2024-01-11] MEDS: 0.9 % SODIUM CHLORIDE 50 ML VIAL IV (13:18)
[2024-01-11] MEDS: IOPAMIDOL-370 (76%);100ML BOTTLE 100 ML IV (13:19)
[2024-01-11] MEDS: SODIUM CHLORIDE 0.9% 10ML SYR (RAD ONLY) 10 ML IV (13:19)
[2024-01-11 13:48] LABS: Microscopic, Urine URINE MICROSCOPIC (MICROSCOPIC)
[2024-01-11 13:58] LABS: Appearance,Urine CLEAR (Clear); Bilirubin,Urine Negative (Negative); Blood, Urine Negative (Negative); Color,Urine YELLOW (Yellow); Glucose,Urine (UA) Negative (Negative); Ketones,Urine Negative (Negative); Leukocyte Esterase,Urine TRACE (Negative); Nitrate,Urine Negative (Negative); PH,Urine 5.5 (5.0-8.5); Protein,Urine Negative (Negative); Specific Gravity, Urine >= 1.030 (1.005-1.030); Urobilinogen,Urine 0.2 EU/dl (0.2)
[2024-01-11 14:13] LABS: Bacteria,Urine Trace /lpf; Calcium Oxalate Crystals,Urine Trace /lpf; Hyaline Casts,Urine Occasional #/lpf (0)
--- NOTE | 2024-01-11 14:14 | PC.NURSE ---
House notified for admission by Dr. Casanova for Dr. Campos
[2024-01-11 14:41] LABS: Troponin I 0.05 ng/ml (0.00-0.034)
[2024-01-11] MEDS: FUROSEMIDE 40MG/4ML VIAL 40 MG IV (14:53)
--- NOTE | 2024-01-11 14:54 | EXP.HP ---
History of Present Illness *Admission Date: 01/11/24 *Reason for visit:: renal failure; HTN *History of present illness: Medical Decision Narrative: 83-year-old female history of dementia, hypertension, hyperlipidemia, frequent UTI presenting with weakness. Family providing history. Patient daughter states that patient has been generally weak, unable to ambulate even to bedside commode to use the bathroom. This has been going on since yesterday, 01/09. Patient typically falling toward the left. No more confusion than usual, but she is generally weak and more tired. Patient's daughter states that patient's blood pressure has been all over the place and inconsistent. Patient has any complaints at this time. Patient's daughter adamantly denies falls, as does patient. History was obtained via conversation with patient and daughter. On arrival, patient hemodynamically stable, alert, oriented to person, appropriate, GCS 14, moving all extremities spontaneously, pupils equal and reactive to light. Full physical exam performed and significant for tired appearing woman in no acute distress. GCS 14. Cardiopulmonary exam within normal notes. Abdomen soft, nontender, nondistended. Patient's neurologic exam concerning for left upper extremity drift, bilateral lower extremity weakness, right greater than left. She also has difficulty with understanding finger-nose left upper extremity concerning for potential neglect. Differential includes sepsis, urinary tract infection, pneumonia, metabolic, Cardiologic, ACS, [place], among others. Independent interpretation of EKG shows sinus rhythm 75 beats a minute and intervals within normal limits. [place] normal. QRS narrow at 93, QTc 433. T wave inversions in 1 and aVL, unknown if these are new. Patient was given 1 L fluids for symptomatic management and correction of underlying abnormalities. Workup independently interpreted and significant for acute renal failure with RUFINA creatinine 4.4 and BUN 73. LFTs nonactionable, BNP elevated at 1400, troponin 0.05. Chest x-ray without acute cardiopulmonary airspace disease. CT head without acute intracranial hemorrhage, CTA head and neck without acute CVA. See radiology read for full review of final results. Heart score 4. Patient's PCP was contacted and case was discussed at length, patient be admitted for acute renal failure. Fluids given. Because patient high risk for clinical decompensation, deemed appropriate for inpatient admission. Results were relayed to patient daughter who voiced understanding and patient was agreeable to inpatient admission and management. Patient was admitted to the hospital for further definitive management. The above as per ER documentation CT of the head revealed atrophy and mild periventricular chronic ischemic changes and nothing acute. CT a of the head revealed no evidence of occlusion or significant stenosis. CTA of the neck showed no evidence of occlusion or significant stenosis. Chest x-ray revealed bibasilar atelectasis or pneumonia; CBC reveals a white blood cell count of 10,500 with a normal differential and with a hemoglobin of 13 and hematocrit of 37.7.. Blood chemistries reveal BUN of troponin I 0.05 and 0.05 73 and creatinine of 4.4. Troponin I is 0.05 and 0 0.05; BNP is elevated at 1410 Blood pressure in the emergency room varied from a low of 69/40 up to 182/129 after receiving a liter of IV fluids. She also received 40 Lasix IV. Additional history after patient admission. Daughter says she has not been doing well for the last 3 to 4 days. She has not been eating or drinking very well. Yesterday she was able to walk and has been unable to walk today. She has had a decrease in her urinary output as well. There have been no upper respiratory symptoms and no fever. [facility] Disclaimer: The information contained in this section may have been updated after the patient was seen, as this information can be updated by other users. Medical History Anxiety Chronic low back pain Former smoker Frequent UTI Heart murmur HTN (hypertension) Hypothyroid Seizures Spinal stenosis Spinal stenosis in cervical region Surgical History No pertinent past surgical history Family History Other Family history of cancer Family history of heart attack Social History Smoking Status: Never smoker alcohol intake: never substance use type: denies use current occupational status: retired Travel in the last 8 weeks: None caregiver/support person: Yes (daughter) household members: family housing: house lives independently: No marital status: education level: middle school current occupational exposures/hazards: No caffeine: Yes special lion needs: No agree to transfusion: No Review of Systems Constitutional Constitutional: Denies frequent falls, Denies headache(s), Reports poor appetite, Reports lethargy and Reports weakness Eyes Eyes: Denies change in vision ENT Ears, Nose, Mouth, and Throat: Denies dizziness, Denies otalgia, Denies headache(s), Denies nasal congestion, Reports post nasal drip and Denies sore throat *Cardiovascular Cardiovascular: Denies chest pain, Denies dyspnea and Denies leg edema *Respiratory Respiratory: Denies chest congestion, Denies cough and Denies dyspnea *Gastrointestinal Gastrointestinal: Denies abdominal pain, Denies change in stool character, Denies diarrhea, Denies dyspepsia, Denies heartburn, Denies nausea and Denies vomiting *Genitourinary Genitourinary: Denies difficulty voiding *Musculoskeletal Musculoskeletal: Reports abnormal gait, Reports arthralgias (Back and neck), Reports back pain (Chronic) and Reports muscle weakness (Unable to walk today) *Neurologic Neurologic: Reports abnormal gait, Denies abnormal speech, Denies behavioral changes, Denies dizziness, Denies frequent falls, Denies headache(s), Denies seizure-like activity and Reports weakness Psychiatric Psychiatric: Denies behavioral changes Meds Home Medications and Allergies Home Medications Medication Instructions Recorded Confirmed Type celecoxib 100 mg capsule 100 mg PO DAILY Arthritis 01/02/21 01/11/24 History duloxetine 60 mg capsule,delayed 60 mg PO DAILY Depression 01/02/21 01/11/24 History release esomeprazole magnesium 40 mg 40 mg PO DAILY 01/02/21 01/11/24 History capsule,delayed release meclizine 25 mg tablet 25 mg PO BIDP PRN Motion Sickness 01/02/21 01/11/24 History mirabegron 50 mg tablet,extended 50 mg PO DAILY overactive bladder 01/02/21 01/11/24 History release 24 hr alendronate 70 mg tablet 70 mg PO WEEKLY Osteoporosis 01/03/21 01/11/24 History cholecalciferol (vitamin D3) 125 5,000 unit PO DAILY Supplement 01/03/21 01/11/24 History mcg (5,000 unit) capsule cyanocobalamin (vitamin B-12) 500 500 mcg sublingual DAILY Supplement 01/03/21 01/11/24 History mcg disintegrating tablet,sublingual docusate sodium 250 mg capsule 250 mg PO BIDP PRN Constipation 01/03/21 01/11/24 History oxycodone 10 mg tablet 10 mg PO BID 01/03/21 01/11/24 History gabapentin 300 mg capsule 600 mg PO BID 01/16/21 01/11/24 History levothyroxine 25 mcg tablet 25 mcg PO DAILY 01/16/21 01/11/24 History donepezil 5 mg tablet 5 mg PO HS 08/20/22 01/11/24 History lorazepam 1 mg tablet 1 mg PO BID Anxiety 08/20/22 01/11/24 History memantine 5 mg tablet 5 mg PO BID 08/20/22 01/11/24 History brivaracetam 75 mg tablet 75 mg PO BID seizure #60 tabs 08/21/22 01/11/24 Rx tizanidine 4 mg tablet 4 mg PO Q8H PRN muscle spasticity 02/22/23 01/11/24 Rx #90 tabs loratadine 10 mg tablet 10 mg PO DAILY PRN Allergy Symptoms 03/31/23 01/11/24 History multivitamin with minerals-folic 1 tab PO DAILY Supplement 03/31/23 01/11/24 History acid 0.4 mg tablet (One-A-Day Women's 50 Plus) wheat dextrin 3 gram-calcium 3 g PO DAILY Supplement 03/31/23 01/11/24 History gluc,lactate 300 mg/8.8 gram oral powder irbesartan 300 1 tab PO DAILY 01/11/24 01/11/24 History mg-hydrochlorothiazide 12.5 mg tablet plecanatide 3 mg tablet (Trulance) 3 mg PO DAILY 01/11/24 01/11/24 History New Prescriptions to Start Prescriptions: Allergies Allergy/AdvReac Type Severity Reaction Status Date / Time codeine Allergy Intermediate Rash Verified 01/04/24 13:02 Exam Data for Last 24 hours Vital signs and Labs for Last 24 Hours: Temp Pulse Resp BP Pulse Ox O2 Del Method 98.0 F 75 16 182/129 H 97 Room Air 01/11/24 11:36 01/11/24 14:01 01/11/24 14:01 01/11/24 14:01 01/11/24 14:01 01/11/24 11:36 Laboratory Results - last 24 hr 01/11/24 11:40: WBC 10.5, RBC 3.75 L, Hgb 13.0, Hct 37.7, MCV 100.5 H, MCH 34.8 H, MCHC 34.6, RDW 13.5, Plt Count 218, MPV 9.4, Neut % (Auto) 68.6, Lymph % (Auto) 21.9, [place] % (Auto) 5.7, Eos % (Auto) 3.2, Baso % (Auto) 0.6, Neut # (Auto) 7.2, Lymph # (Auto) 2.3, [place] # (Auto) 0.6, Eos # (Auto) 0.3, Baso # (Auto) 0.1, PT 11.3, INR 1.01, APTT 28.3, Sodium 136, Potassium 3.7, Chloride 103, Carbon Dioxide 23, Anion Gap 13.7, BUN 73 H, Creatinine 4.40 H, Estimated Creat Clear 11, Estimated GFR 10 L*, Est GFR ( Amer) 12 L*, Glucose 103 H, Calcium 8.9, Total Bilirubin 0.8, AST 62 H, ALT 26, Alkaline Phosphatase 77, Troponin I 0.05 H, NT-Pro-B Natriuret Pep 1410 H, Total Protein 6.9, Albumin 3.7, Globulin 3.2, Albumin/Globulin Ratio 1.2 01/11/24 11:42: VBG pH 7.28 L, VBG pCO2 42.8, VBG pO2 54.4 H, VBG HCO3 19.5 L, VBG Total CO2 20.8 L, VBG O2 Saturation 85.8 H, VBG Base Excess -7.3 L, VBG Lactic Acid 1.6 01/11/24 13:40: Urine Color Yellow, Urine Appearance Clear, Urine pH 5.5, Ur Specific [place] >= 1.030, Urine Protein Negative, Urine Glucose (UA) Negative, Urine Ketones Negative, Urine Blood Negative, Urine Nitrate Negative, Urine Bilirubin Negative, Urine Urobilinogen 0.2, Ur Leukocyte Esterase Trace, Urine RBC None, Urine WBC 3-5, Ur Squamous Epith Cells 3-5, Calcium Oxalate Crystal Trace, Urine Bacteria Trace, Hyaline Casts Occasional 01/11/24 14:15: Troponin I 0.05 H I & O for Last 24 hours: Intake & Output 01/09/24 01/10/24 01/11/24 01/12/24 11:59 11:59 11:59 11:59 Weight 170 lb Constitutional Constitutional: no acute distress *Routine HEENT Exam Head: Present normocephalic and atraumatic Eye: Present EOMI and PERRL; Absent conjunctival icterus, scleral injection or conjunctivae pink ENT: Present mucous membranes moist and oropharynx clear *Routine Neck Exam Neck: Present full ROM; Absent carotid bruit, lymphadenopathy or thyromegaly *Routine Respiratory Exam Respiratory: Present CTA bilaterally (With good bilateral breath sounds) *Routine Cardiovascular Exam Cardiovascular: Present RRR; Absent ectopic *Routine Abdominal Exam Abdominal: Present soft, normoactive bowel sounds and obese; Absent tenderness *Routine Rectal Exam Rectal:: deferred *Routine Genitalia Exam Genitalia:: deferred *Routine Extremities Exam Extremities: Present edema (Trace bilateral leg edema) *Routine Neurological Exam Neurological: Present alert, oriented X3, moving all extremities and normal speech; Absent nystagmus or facial asymmetry Comments: Hard of hearing Assessment and Plan *Assessment and plan (1) Weakness: Status: Acute Category: Medical Code(s): R53.1 - Weakness (2) Acute renal failure: Status: Acute Category: Medical Code(s): N17.9 - Acute kidney failure, unspecified (3) Degenerative joint disease (DJD) of lumbar spine: Status: Chronic Category: Medical Code(s): M47.816 - Spondylosis without myelopathy or radiculopathy, lumbar region (4) Lumbosacral radiculopathy due to degenerative joint disease of spine: Status: Chronic Category: Medical Code(s): M47.27 - Other spondylosis with radiculopathy, lumbosacral region (5) Spinal stenosis, lumbar region with neurogenic claudication: Status: Chronic Category: Medical Code(s): M48.062 - Spinal stenosis, lumbar region with neurogenic claudication (6) Anxiety: Status: Chronic Category: Medical Code(s): F41.9 - Anxiety disorder, unspecified (7) Hypertension: Status: Chronic Category: Medical Code(s): I10 - Essential (primary) hypertension (8) Hypothyroidism (acquired): Status: Chronic Category: Medical Code(s): E03.9 - Hypothyroidism, unspecified Plan Blood pressure monitoring: PT consult for tomorrow. Monitor of labs. Will also do a COVID test.
--- NOTE | 2024-01-11 14:58 | PC.NURSE ---
2nd floor staff at bedside to collect pt.
[2024-01-11 16:43] LABS: Thyroid Stimulating Hormone 0.91 uIU/mL (0.465-4.68)
--- NOTE | 2024-01-11 18:05 | PC.NURSE ---
A&O TO NAME AND BIRTHDAY. PT IS ON 3LNC AT THIS TIME, TOLERATING WELL. FAMILY REMAINS AT BEDSIDE AND STATES ONE OF THEM WILL BE STAYING WITH HER. BED ALARM ON AND FAMILY EDUCATED TO LET US KNOW IF THEY LEAVE. PT HAS A GOOD APPETITE. HAS HAD NO NEEDS OR C/O NOTED SINCE ARRIVAL TO FLOOR. VSS.
[2024-01-11 18:21] LABS: Troponin I 0.04 ng/ml (0.00-0.034)
--- NOTE | 2024-01-11 18:44 | PC.NURSE ---
PT ON RA AT THIS TIME, 91% O2 SAT.
[2024-01-11] MEDS: GABAPENTIN 300MG CAPSULE 300 MG PO (20:41)
[2024-01-11] MEDS: MEMANTINE 10MG TABLET 10 MG PO (20:41)
[2024-01-11] MEDS: DONEPEZIL 5MG TAB 10 MG PO (20:45)
[2024-01-11] MEDS: OXYCODONE 5MG IMMEDIATE RELEASE TABLET 5 MG PO (23:23)
[2024-01-12] VITALS (8 sets, daily range): BP systolic 93–135; BP diastolic 53–68; PULSE 67–80; RESP 14–18; TEMP 36.6–37.1; O2SAT 92–97; BMI 29.7
--- NOTE | 2024-01-12 05:44 | PC.NURSE ---
pt confused, alert to name and aware she is in hospital, nsr on monitor, adequate uop
[2024-01-12 06:13] LABS: MANUAL DIFFERENTIAL MANUAL DIFFERENTIAL (MANUAL DIFF)
[2024-01-12 06:24] LABS: Basophils # 0.1 K/mm3 (0-0.2); Basophils % 0.6 % (0.1-2.0); Eosinophils # 0.3 K/mm3 (0.0-0.4); Eosinophils % 3.7 % (0.1-12.0); Hematocrit 30.6 % (37.0-47.0); Hemoglobin 12.1 g/dL (12.2-16.2); Lymphocytes # 1.9 K/mm3 (0.7-4.5); Lymphocytes % 22.7 % (10-50); Mean Corpuscular HGB Conc 39.5 g/dL (31.8-35.4); Mean Corpuscular Hemoglobin 39.6 pg (27.0-31.2); Mean Corpuscular Volume 100.2 fl (81-99); Mean Platelet Volume 9.5 fl (7.4-10.4); Monocytes # 0.6 K/mm3 (0.1-1.0); Monocytes % 7.6 % (1.7-9.3); Neutrophils # 5.5 K/mm3 (1.8-7.8); Neutrophils % 65.4 % (37.0-80.0); Platelet Count 159 K/mm3 (142-424); Red Blood Count 3.06 M/mm3 (4.20-5.40); Red Cell Distribution Width 13.6 % (11.5-17.5); White Blood Count 8.4 K/mm3 (4.8-10.8)
[2024-01-12] MEDS: LEVOTHYROXINE 25MCG (0.025MG) TAB 25 MCG PO (06:34)
[2024-01-12 06:47] LABS: Anion Gap 11.6 mEq/L (5-15); Blood Urea Nitrogen 65 mg/dl (7-17); Calcium 8.8 mg/dl (8.4-10.2); Carbon Dioxide 26 mmol/L (22.0-30.0); Chloride 103 mmol/L (98-107); Creatinine Clearance Estimated 17 mL/min (50-200); Estimated Glomerular Filt Rate 14 ml/min (>60); GFR (African American) 17 ML/MIN (>60); Glucose 119 mg/dl (74-100); Potassium 3.6 mmoL/L (3.5-5.1); Sodium 137 mmol/L (136-145)
[2024-01-12 07:34] LABS: Eosinophils % 5 % (0-3); Lymphocytes % 21 % (10-50); Monocytes % 6 % (2-9); Neutrophils % 68 % (42-76); Total Cells Counted 100
[2024-01-12 07:35] LABS: Macrocytosis 1+; Platelet Estimate Normal
--- NOTE | 2024-01-12 07:44 | HMH.PTEV ---
Physical Therapy Evaluation Rehab PT IP Evaluation Start: 01/11/24 15:45 Freq: ONCE Status: Active Protocol: Document 01/12/24 07:38 ABELINO (Rec: 01/12/24 07:44 ABELINO [email or web address]) Subjective/History History History Per H&P: 83-year-old female history of dementia, hypertension, hyperlipidemia, frequent UTI presenting with weakness. Family providing history. Patient daughter states that patient has been generally weak, unable to ambulate even to bedside commode to use the bathroom. This has been going on since yesterday, 01/09. Patient typically falling toward the left. No more confusion than usual, but she is generally weak and more tired. Patient's daughter states that patient's blood pressure has been all over the place and inconsistent. Patient has any complaints at this time. Patient's daughter adamantly denies falls, as does patient. History was obtained via conversation with patient and daughter. On arrival, patient hemodynamically stable, alert, oriented to person, appropriate, GCS 14, moving all extremities spontaneously, pupils equal and reactive to light. Full physical exam performed and significant for tired appearing woman in no acute distress. GCS 14. Cardiopulmonary exam within normal notes. Abdomen soft, nontender, nondistended. Patient's neurologic exam concerning for left upper extremity drift, bilateral lower extremity weakness, right greater than left. She also has difficulty with understanding finger-nose left upper extremity concerning for potential neglect. Differential includes sepsis, urinary tract infection, pneumonia, metabolic, Cardiologic, ACS, CT, among others. Subjective Subjective PLOF per pt's daughter's report: Lives with her daughter and son-in-law in single-story home with no SUE. Used a rollator for ambulation. Required Min A for some functional mobility and bed mobility. Has been having worsening weakness and difficulty walking. New diagnosis of cancer in past 12 No months? Rehab PT IP Eval Objective Appearance Patient Behavior Appropriate,Cooperative Patient Orientation Person Difficulty following instructions none Speech Pattern Clear Ambulation Patient Able to Ambulate No Balance Ability to Arise Able, uses arms to help Sitting Balance Steady, safe Standing Balance Unsteady Transfers Bed Transfer Ability Minimal x 2 (25% assist) Sit to Stand Bed Transfer Ability Moderate x 2 (50% assist) Rehab PT IP prob,goals,plan Problems Date of Evaluation: 01/12/24 PT IP Problems Bed Mobility,Transfers,Gait, Balance,Self care,Safety Rehab Potential Rehab Potential Good Equipment Needs Assistive Devices Rolling / Wheeled Walker Plan PT Intervention Plan Bed Mobility,Transfers,Gait, Balance,Safety,Therapeutic Exercise Other Intervention Plan 1-2 times PT Plan Frequency Daily Duration LOS Discharge Goals Bed Transfer Ability Minimal x 1 (25% assist) Sit to Stand Chair Transfer Ability Moderate x 1 (50% assist) Ambulation Assistive Device Rolling Walker Ambulation Distance (feet) 5 Discharge Plan PT Discharge Plan Initial physical therapy evaluation performed. Patient presents below baseline at this time in functional mobility, transfers, and strength. Pt not safe to return home at this time d/t current level of functional mobility. PT recommending short-term rehabilitation stay upon d/c from [facility]. Pt may be able to return home with assistance provided by family if functional mobility improves while at [facility]. Pt would benefit from skilled PT while at [facility] to prevent further functional decline and maximize safety with mobility . Eval Complexity Eval Charge Codes 44012 - Moderate Complexity PHYSICIAN CERTIFICATION: I certify the specified therapy services for Maura Carrero are required, authorized, and reviewed every 30 days.
--- NOTE | 2024-01-12 08:14 | EXP.ACUTE.PN ---
Subjective *Date: 01/12/24 *Time: 08:47 Interval history: Patient is feeling much better this am. She denies any pain. She is up and eating [employer]. She states she did not sleep well. Medical Exam Vital signs and Labs for Last 24 Hours: Vital Signs Temp Pulse Pulse Resp BP BP Pulse Ox 01/12/24 06:56 01/12/24 05:00 01/12/24 04:00 70 01/12/24 03:00 01/12/24 01:00 01/12/24 00:00 80 01/12/24 00:00 98.1 F 76 16 114/53 L 92 L 01/11/24 23:00 01/11/24 21:00 01/11/24 20:00 70 01/11/24 20:00 01/11/24 18:43 01/11/24 17:00 01/11/24 15:39 98.3 F 69 18 100/52 L 91 L 01/11/24 15:15 01/11/24 15:02 59 L 18 100/52 L 92 L 01/11/24 14:58 98.0 F 69 18 101/52 L 01/11/24 14:45 46 L 18 101/52 L 92 L 01/11/24 14:31 70 18 81/48 L 90 L 01/11/24 14:01 75 16 182/129 H 97 01/11/24 12:30 57 L 16 69/40 L 97 01/11/24 12:00 77 16 97/48 L 90 L 01/11/24 11:36 98.0 F 69 18 105/45 L 88 L O2 Del Method O2 Flow Rate 01/12/24 06:56 Room Air 01/12/24 05:00 Room Air 01/12/24 04:00 01/12/24 03:00 Room Air 01/12/24 01:00 Room Air 01/12/24 00:00 01/12/24 00:00 Room Air 01/11/24 23:00 Room Air 01/11/24 21:00 Room Air 01/11/24 20:00 01/11/24 20:00 Room Air 01/11/24 18:43 Room Air 01/11/24 17:00 Nasal Cannula 3 01/11/24 15:39 Nasal Cannula 3 01/11/24 15:15 Nasal Cannula 3 01/11/24 15:02 01/11/24 14:58 Nasal Cannula 2 01/11/24 14:45 01/11/24 14:31 01/11/24 14:01 01/11/24 12:30 01/11/24 12:00 01/11/24 11:36 Room Air Intake and Output 01/11/24 01/12/24 01/12/24 19:59 03:59 11:59 Intake Total 480 / 480 Output Total 650 / 2750 2100 / 2750 Balance -170 / -2270 -2100 / -2270 Intake: Intake, Oral Amount 480 / 480 Output: Output, Urine Amount 650 / 2750 2100 / 2750 Other: Number of Unmeasured Voids 0 Weight 176 lb 2 oz 178 lb 4 oz Patient Weight 01/12/24 11:59 Weight 178 lb 4 oz Laboratory Results - last 24 hr 01/11/24 11:40: WBC 10.5, RBC 3.75 L, Hgb 13.0, Hct 37.7, MCV 100.5 H, MCH 34.8 H, MCHC 34.6, RDW 13.5, Plt Count 218, MPV 9.4, Neut % (Auto) 68.6, Lymph % (Auto) 21.9, [place] % (Auto) 5.7, Eos % (Auto) 3.2, Baso % (Auto) 0.6, Neut # (Auto) 7.2, Lymph # (Auto) 2.3, [place] # (Auto) 0.6, Eos # (Auto) 0.3, Baso # (Auto) 0.1, PT 11.3, INR 1.01, APTT 28.3, Sodium 136, Potassium 3.7, Chloride 103, Carbon Dioxide 23, Anion Gap 13.7, BUN 73 H, Creatinine 4.40 H, Estimated Creat Clear 11, Estimated GFR 10 L*, Est GFR ( Amer) 12 L*, Glucose 103 H, Calcium 8.9, Total Bilirubin 0.8, AST 62 H, ALT 26, Alkaline Phosphatase 77, Troponin I 0.05 H, NT-Pro-B Natriuret Pep 1410 H, Total Protein 6.9, Albumin 3.7, Globulin 3.2, Albumin/Globulin Ratio 1.2 01/11/24 11:42: VBG pH 7.28 L, VBG pCO2 42.8, VBG pO2 54.4 H, VBG HCO3 19.5 L, VBG Total CO2 20.8 L, VBG O2 Saturation 85.8 H, VBG Base Excess -7.3 L, VBG Lactic Acid 1.6 01/11/24 13:40: Urine Color Yellow, Urine Appearance Clear, Urine pH 5.5, Ur Specific [place] >= 1.030, Urine Protein Negative, Urine Glucose (UA) Negative, Urine Ketones Negative, Urine Blood Negative, Urine Nitrate Negative, Urine Bilirubin Negative, Urine Urobilinogen 0.2, Ur Leukocyte Esterase Trace, Urine RBC None, Urine WBC 3-5, Ur Squamous Epith Cells 3-5, Calcium Oxalate Crystal Trace, Urine Bacteria Trace, Hyaline Casts Occasional 01/11/24 14:15: Troponin I 0.05 H, TSH 0.91 01/11/24 17:45: Troponin I 0.04 H 01/12/24 05:44: WBC 8.4, RBC 3.06 L, Hgb 12.1 L, Hct 30.6 L, MCV 100.2 H, MCH 39.6 H, MCHC 39.5 H, RDW 13.6, Plt Count 159 D, MPV 9.5, Neut % (Auto) 65.4, Lymph % (Auto) 22.7, [place] % (Auto) 7.6, Eos % (Auto) 3.7, Baso % (Auto) 0.6, Neut # (Auto) 5.5, Lymph # (Auto) 1.9, [place] # (Auto) 0.6, Eos # (Auto) 0.3, Baso # (Auto) 0.1, Total Counted 100, Neutrophils % (Manual) 68, Lymphocytes % (Manual) 21, Monocytes % (Manual) 6, Eosinophils % (Manual) 5 H, Platelet Estimate Normal, Macrocytosis 1+, Sodium 137, Potassium 3.6, Chloride 103, Carbon Dioxide 26, Anion Gap 11.6, BUN 65 H, Creatinine 3.10 H D, Estimated Creat Clear 17, Estimated GFR 14 L*, Est GFR ( Amer) 17 L* D, Glucose 119 H, Calcium 8.8 I & O for Labs for Last 24 Hours: Intake & Output 01/09/24 01/10/24 01/11/24 01/12/24 11:59 11:59 11:59 11:59 Intake Total 480 / 480 Output Total 2750 / 2750 Balance -2270 / -2270 Weight 170 lb 178 lb 4 oz Constitutional: Present no acute distress Respiratory: Present CTA bilaterally Cardiac: Present Reg Rate and Rhythm GI: Present soft; Absent distention or tenderness Extremities: Absent edema Skin: Present intact Neuro: Present alert, awake and oriented x 3 Assessment and Plan *Assessment and plan (1) Acute renal failure: Status: Acute Category: Medical Code(s): N17.9 - Acute kidney failure, unspecified (2) Weakness: Status: Acute Category: Medical Code(s): R53.1 - Weakness (3) Degenerative joint disease (DJD) of lumbar spine: Status: Chronic Category: Medical Code(s): M47.816 - Spondylosis without myelopathy or radiculopathy, lumbar region (4) Lumbosacral radiculopathy due to degenerative joint disease of spine: Status: Chronic Category: Medical Code(s): M47.27 - Other spondylosis with radiculopathy, lumbosacral region (5) Spinal stenosis, lumbar region with neurogenic claudication: Status: Chronic Category: Medical Code(s): M48.062 - Spinal stenosis, lumbar region with neurogenic claudication (6) Anxiety: Status: Chronic Category: Medical Code(s): F41.9 - Anxiety disorder, unspecified (7) Hypertension: Status: Chronic Category: Medical Code(s): I10 - Essential (primary) hypertension (8) Hypothyroidism (acquired): Status: Chronic Category: Medical Code(s): E03.9 - Hypothyroidism, unspecified Plan Awaiting covid results. Patient is improving. Renal function has improved slightly. Will likely need fluids. Troponin trended down likely due to renal failure. Will discuss further care with Dr. Campos. Dr. Campos entry - Saw patient, agree with above note.
--- NOTE | 2024-01-12 09:34 | HMH.PHAINT1 ---
Pharmacy Intervention Comments: MEDICATION RECONCILIATION COMPLETED ON PATIENT USING EXTERNAL FILL HISTORY FROM PHARMACY. -CONNIE BARRIOS, SAIMAD
[2024-01-12] MEDS: IRBESARTAN 300MG TABLET 300 MG PO (09:44)
[2024-01-12] MEDS: MEMANTINE 10MG TABLET 10 MG PO ×2 (09:44→21:34)
[2024-01-12] MEDS: GABAPENTIN 300MG CAPSULE 300 MG PO ×3 (09:45→21:34)
[2024-01-12] MEDS: 0.9% NaCl w/20mEq KCL 1,000 ML 100 ML IV ×2 (09:56→18:36)
[2024-01-12] MEDS: BISACODYL 5MG TABLET 10 MG PO (16:37)
--- NOTE | 2024-01-12 18:59 | PC.NURSE ---
pt is alert to self, VSS. family has been at bedside during my shift. Pt has not had a bowel movement, MD contacted and new orders received for bowel elimination aid. Heel boot placed on right foot to relieve area of redness. call light in reach
[2024-01-12] MEDS: BRIVIACT 75 MG 1 EACH PO (21:34)
[2024-01-12] MEDS: DONEPEZIL 10MG TAB 10 MG PO (21:34)
[2024-01-13] VITALS: PULSE 74
[2024-01-13 04:00] VITALS: BP 136/70; PULSE 69; PULSE 73; RESP 18; TEMP 36.6; O2SAT 93; BMI 30.1
--- NOTE | 2024-01-13 05:03 | PC.NURSE ---
Patient alert and oriented to name and upon assessment. Tolerating room air well. Daughter has remained at bedside throughout the night. No bowel movement tonight. Patient has not expressed any needs or concerns. Call light within reach.
[2024-01-13 06:23] LABS: Basophils # 0.1 K/mm3 (0-0.2); Basophils % 0.6 % (0.1-2.0); Eosinophils # 0.4 K/mm3 (0.0-0.4); Eosinophils % 5.1 % (0.1-12.0); Hematocrit 35.3 % (37.0-47.0); Hemoglobin 11.8 g/dL (12.2-16.2); Lymphocytes # 1.9 K/mm3 (0.7-4.5); Lymphocytes % 27.4 % (10-50); Mean Corpuscular HGB Conc 33.3 g/dL (31.8-35.4); Mean Corpuscular Hemoglobin 34.3 pg (27.0-31.2); Mean Platelet Volume 9.5 fl (7.4-10.4); Monocytes # 0.6 K/mm3 (0.1-1.0); Monocytes % 7.7 % (1.7-9.3); Neutrophils # 4.2 K/mm3 (1.8-7.8); Neutrophils % 59.2 % (37.0-80.0); Platelet Count 168 K/mm3 (142-424); Red Blood Count 3.43 M/mm3 (4.20-5.40); Red Cell Distribution Width 13.5 % (11.5-17.5); White Blood Count 7.1 K/mm3 (4.8-10.8)
[2024-01-13] MEDS: LEVOTHYROXINE 25MCG (0.025MG) TAB 25 MCG PO (06:23)
[2024-01-13 06:34] LABS: Anion Gap 5.8 mEq/L (5-15); Blood Urea Nitrogen 46 mg/dl (7-17); Calcium 8.8 mg/dl (8.4-10.2); Carbon Dioxide 27 mmol/L (22.0-30.0); Chloride 112 mmol/L (98-107); Creatinine Clearance Estimated 33 mL/min (50-200); Estimated Glomerular Filt Rate 31 ml/min (>60); GFR (African American) 37 ML/MIN (>60); Glucose 146 mg/dl (74-100); Potassium 3.8 mmoL/L (3.5-5.1); Sodium 141 mmol/L (136-145)
[2024-01-13 08:00] VITALS: BP 149/76; PULSE 70; PULSE 72; RESP 15; TEMP 36.5; O2SAT 95
--- NOTE | 2024-01-13 08:28 | EXP.ACUTE.PN ---
Subjective *Date: 01/13/24 *Time: 08:57 Interval history: Patient is not feeling well this am. She states she slept well last night and was fine until she had to move into the chair and now she is very nauseated. She denies any pain. Medical Exam Vital signs and Labs for Last 24 Hours: Vital Signs Temp Pulse Pulse Resp BP Pulse Ox O2 Del Method 01/13/24 06:49 Room Air 01/13/24 05:00 Room Air 01/13/24 04:00 73 01/13/24 04:00 98 F 69 18 136/70 93 L Room Air 01/13/24 03:00 Room Air 01/13/24 01:00 Room Air 01/13/24 00:00 74 01/12/24 23:57 98.5 F 68 18 121/66 97 Room Air 01/12/24 23:00 Room Air 01/12/24 21:00 Room Air 01/12/24 20:00 70 01/12/24 20:00 97 Room Air 01/12/24 20:00 98.7 F 68 18 93/63 L 97 Room Air 01/12/24 18:40 Room Air 01/12/24 17:00 Room Air 01/12/24 16:00 70 01/12/24 15:54 98.2 F 67 14 106/64 L 97 Nasal Cannula 01/12/24 15:00 Room Air 01/12/24 13:00 Room Air 01/12/24 12:00 70 01/12/24 12:00 98.6 F 71 18 135/68 93 L Nasal Cannula 01/12/24 11:00 Room Air 01/12/24 09:00 Room Air O2 Flow Rate 01/13/24 06:49 01/13/24 05:00 01/13/24 04:00 01/13/24 04:00 01/13/24 03:00 01/13/24 01:00 01/13/24 00:00 01/12/24 23:57 01/12/24 23:00 01/12/24 21:00 01/12/24 20:00 01/12/24 20:00 01/12/24 20:00 01/12/24 18:40 01/12/24 17:00 01/12/24 16:00 01/12/24 15:54 1 01/12/24 15:00 01/12/24 13:00 01/12/24 12:00 01/12/24 12:00 1 01/12/24 11:00 01/12/24 09:00 Intake and Output 01/12/24 01/13/24 01/13/24 19:59 03:59 11:59 Intake Total 480 / 2074 1594 / 2074 Output Total 750 / 1400 650 / 1400 Balance -270 / 674 -650 / 674 1594 / 674 Intake: Intake, Oral Amount 480 / 480 Intake, Total IV Amount 1594 / 1594 0.9% NaCl w/20mEq KCL 1,000 ml 1594 / 1594 @ 100 mls/hr IV .Q10H [facility] Rx#: [id number] Output: Output, Urine Amount 750 / 1400 650 / 1400 Other: Weight 178 lb 3.9 oz 180 lb 12.8 oz Patient Weight 01/13/24 11:59 Weight 180 lb 12.8 oz Laboratory Results - last 24 hr 01/13/24 05:40: WBC 7.1, RBC 3.43 L, Hgb 11.8 L, Hct 35.3 L, MCV 103.0 H, MCH 34.3 H, MCHC 33.3, RDW 13.5, Plt Count 168, MPV 9.5, Neut % (Auto) 59.2, Lymph % (Auto) 27.4, [place] % (Auto) 7.7, Eos % (Auto) 5.1, Baso % (Auto) 0.6, Neut # (Auto) 4.2, Lymph # (Auto) 1.9, [place] # (Auto) 0.6, Eos # (Auto) 0.4, Baso # (Auto) 0.1, Sodium 141, Potassium 3.8, Chloride 112 H, Carbon Dioxide 27, Anion Gap 5.8, BUN 46 H D, Creatinine 1.60 H D, Estimated Creat Clear 33, Estimated GFR 31 L, Est GFR ( Amer) 37 L D, Glucose 146 H D, Calcium 8.8 I & O for Labs for Last 24 Hours: Intake & Output 01/10/24 01/11/24 01/12/24 01/13/24 11:59 11:59 11:59 11:59 Intake Total 690 / 690 20734 Output Total 2750 / 3500 1400 / 1400 Balance -2060 / -2810 674 / 674 Weight 170 lb 178 lb 4 oz 180 lb 12.8 oz Microbiology Reports for the Last 24 Hours: Microbiology 01/11/24 15:50 Nasopharyngeal Coronavirus COVID-19 PCR - Final Constitutional: Present no acute distress Respiratory: Present CTA bilaterally Cardiac: Present Reg Rate and Rhythm GI: Present soft; Absent distention or tenderness Extremities: Absent edema Skin: Present intact Neuro: Present alert, awake and oriented x 3 Assessment and Plan *Assessment and plan (1) Acute renal failure: Status: Acute Category: Medical Code(s): N17.9 - Acute kidney failure, unspecified (2) Weakness: Status: Acute Category: Medical Code(s): R53.1 - Weakness (3) Degenerative joint disease (DJD) of lumbar spine: Status: Chronic Category: Medical Code(s): M47.816 - Spondylosis without myelopathy or radiculopathy, lumbar region (4) Lumbosacral radiculopathy due to degenerative joint disease of spine: Status: Chronic Category: Medical Code(s): M47.27 - Other spondylosis with radiculopathy, lumbosacral region (5) Spinal stenosis, lumbar region with neurogenic claudication: Status: Chronic Category: Medical Code(s): M48.062 - Spinal stenosis, lumbar region with neurogenic claudication (6) Anxiety: Status: Chronic Category: Medical Code(s): F41.9 - Anxiety disorder, unspecified (7) Hypertension: Status: Chronic Category: Medical Code(s): I10 - Essential (primary) hypertension (8) Hypothyroidism (acquired): Status: Chronic Category: Medical Code(s): E03.9 - Hypothyroidism, unspecified (9) Nausea: Status: Acute Category: Medical Code(s): R11.0 - Nausea Plan Awaiting covid results. Renal function is better today but she is nauseated. Will give a dose of zofran and discuss further care with Dr. Campos. Dr. Campos entry - Saw patient, agree with above note. Covid nasal PCR is negative. Renal function has improved, will give another liter of 1/2 NS with potassium today. Care management to discuss home health use after discharge.
[2024-01-13] MEDS: ONDANSETRON 4MG/2ML VIAL 4 MG IV (08:33)
[2024-01-13] MEDS: MEMANTINE 10MG TABLET 10 MG PO ×2 (09:40→20:02)
[2024-01-13] MEDS: GABAPENTIN 300MG CAPSULE 300 MG PO ×3 (09:40→20:03)
[2024-01-13] MEDS: BRIVIACT 75 MG 1 EACH PO ×2 (09:40→20:03)
[2024-01-13] MEDS: IRBESARTAN 300MG TABLET 300 MG PO (09:40)
[2024-01-13] MEDS: 0.45% NaCl w/20mEq KCL 1,000 ML 75 ML IV (10:31)
[2024-01-13] MEDS: PROMETHAZINE HCL 12.5MG TABLET 12.5 MG PO (10:32)
--- NOTE | 2024-01-13 10:52 | SW/DCPLANNER ---
Addendum entered by Latoya Hanks RN 01/14/24 09:29: Patient discharging home today. Referral faxed to [facility] . Original Note: I spoke w/ patient and her daughter regarding plans once medically stable for discharge. PT evaluated patient and recommended SNF level of care. Patient/daughter prefer returning home w/ home health services. Patient/daughter do not have a preference for home health agency. Once patient is medically stable for discharge I will set up home health services. Discharge date is unknown at this time.
[2024-01-13 12:00] VITALS: BP 109/50; PULSE 68; PULSE 70; RESP 12; TEMP 36.8; O2SAT 92
--- NOTE | 2024-01-13 14:50 | PC.NURSE ---
Patient was nauseous this morning. Patient got relief from nausea after taking phenergan. patient confused but redirectable, daughter states this is patient's baseline mental status. Patient's daughter trying to encourage patient to increase food consumption. Patient has had 50% of meal intake. RN educated family that while it is good for patient to eat more we do not want to push her to the point of nausea.
[2024-01-13 16:00] VITALS: BP 167/86; PULSE 70; PULSE 77; RESP 12; TEMP 36.6; O2SAT 93
[2024-01-13 20:00] VITALS: BP 155/72; PULSE 83; PULSE 85; RESP 16; TEMP 37.3; O2SAT 92
[2024-01-13] MEDS: DONEPEZIL 10MG TAB 10 MG PO (20:03)
[2024-01-14] VITALS: BP 132/59; PULSE 81; RESP 16; TEMP 37.6; O2SAT 91
[2024-01-14 00:23] VITALS: PULSE 80
[2024-01-14] MEDS: ACETAMINOPHEN 325MG TAB 650 MG PO (03:49)
[2024-01-14 04:00] VITALS: BP 118/67; PULSE 71; PULSE 76; RESP 18; TEMP 36.8; O2SAT 91; BMI 30.1
--- NOTE | 2024-01-14 05:28 | PC.NURSE ---
Patient alert and oriented to name and upon assessment. She does know she is in the hospital, but unable to answer what hospital. Tolerating room air well. Family has remained at bedside throughout the night. No bowel movement tonight. Patient has ran a low grade fever of 99.2 and 99.6 this shift. Around approximately 0300 patient started complaining of left shoulder pain and stated she was more comfortable sitting in the chair than the bed. Patient moved to chair and obtained orders for Tylenol, administered per SEP. Patient has been awake most of the night watching TV. VSS Call light within reach.
[2024-01-14] MEDS: LEVOTHYROXINE 25MCG (0.025MG) TAB 25 MCG PO (05:59)
[2024-01-14 06:28] LABS: Anion Gap 8.3 mEq/L (5-15); Blood Urea Nitrogen 31 mg/dl (7-17); Carbon Dioxide 28 mmol/L (22.0-30.0); Chloride 109 mmol/L (98-107); Creatinine Clearance Estimated 38 mL/min (50-200); Estimated Glomerular Filt Rate 36 ml/min (>60); GFR (African American) 43 ML/MIN (>60); Glucose 134 mg/dl (74-100); Potassium 4.3 mmoL/L (3.5-5.1); Sodium 141 mmol/L (136-145)
[2024-01-14] MEDS: ONDANSETRON 4MG/2ML VIAL 4 MG IV (07:30)
[2024-01-14 08:00] VITALS: BP 133/85; PULSE 60; PULSE 65; RESP 18; TEMP 36.9; O2SAT 93
--- NOTE | 2024-01-14 08:03 | EXP.ACUTE.PN ---
Subjective *Date: 01/14/24 *Time: 08:56 Interval history: Patient states she was doing fine and slept well until she got up this am and moved to the chair. It made her sick and she vomited. She is feeling a little better now and is going to try to eat once her daughter gets here. Medical Exam Vital signs and Labs for Last 24 Hours: Vital Signs Temp Pulse Pulse Resp BP Pulse Ox O2 Del Method 01/14/24 07:40 Room Air 01/14/24 06:49 Room Air 01/14/24 04:45 Room Air 01/14/24 04:00 76 01/14/24 04:00 98.3 F 71 18 118/67 91 L Room Air 01/14/24 03:30 Room Air 01/14/24 01:00 Room Air 01/14/24 00:23 80 01/14/24 00:00 99.6 F 81 16 132/59 L 91 L Room Air 01/13/24 23:00 Room Air 01/13/24 21:00 Room Air 01/13/24 20:00 83 01/13/24 20:00 92 L Room Air 01/13/24 20:00 99.2 F 85 16 155/72 H 92 L Room Air 01/13/24 16:00 97.9 F 77 12 167/86 H 93 L Room Air 01/13/24 16:00 70 01/13/24 12:00 70 01/13/24 12:00 98.2 F 68 12 109/50 L 92 L Room Air 01/13/24 09:00 Room Air Intake and Output 01/13/24 01/14/24 01/14/24 19:59 03:59 11:59 Intake Total 405 / 1405 1000 / 1405 Output Total 500 / 500 Balance 405 / 905 1000 / 905 -500 / 905 Intake: Intake, Oral Amount 405 / 405 Intake, Total IV Amount 1000 / 1000 0.45% NaCl w/20mEq KCL 1,000 ml 1000 / 1000 @ 75 mls/hr IV .[id number] [facility] Rx #:[id number] Output: Output, Urine Amount 500 / 500 Other: Number of Unmeasured Voids 0 Weight 180 lb 12.817 oz Patient Weight 01/14/24 11:59 Weight 180 lb 12.817 oz Laboratory Results - last 24 hr 01/14/24 05:39: Sodium 141, Potassium 4.3, Chloride 109 H, Carbon Dioxide 28, Anion Gap 8.3, BUN 31 H D, Creatinine 1.40 H, Estimated Creat Clear 38, Estimated GFR 36 L, Est GFR ( Amer) 43 L, Glucose 134 H, Calcium 10.0 I & O for Labs for Last 24 Hours: Intake & Output 01/11/24 01/12/24 01/13/24 01/14/24 11:59 11:59 11:59 11:59 Intake Total 690 / 690 2174 / 2174 1405 / 1405 Output Total 2750 / 3500 1850 / 1850 500 / 500 Balance -2060 / -2810 324 / 324 905 / 905 Weight 170 lb 178 lb 4 oz 180 lb 12.8 oz 180 lb 12.817 oz Constitutional: Present no acute distress Respiratory: Present CTA bilaterally Cardiac: Present Reg Rate and Rhythm GI: Present soft; Absent distention or tenderness Extremities: Absent edema Skin: Present intact Neuro: Present alert, awake and oriented x 3 Assessment and Plan *Assessment and plan (1) Acute renal failure: Status: Acute Category: Medical Code(s): N17.9 - Acute kidney failure, unspecified (2) Weakness: Status: Acute Category: Medical Code(s): R53.1 - Weakness (3) Degenerative joint disease (DJD) of lumbar spine: Status: Chronic Category: Medical Code(s): M47.816 - Spondylosis without myelopathy or radiculopathy, lumbar region (4) Lumbosacral radiculopathy due to degenerative joint disease of spine: Status: Chronic Category: Medical Code(s): M47.27 - Other spondylosis with radiculopathy, lumbosacral region (5) Spinal stenosis, lumbar region with neurogenic claudication: Status: Chronic Category: Medical Code(s): M48.062 - Spinal stenosis, lumbar region with neurogenic claudication (6) Anxiety: Status: Chronic Category: Medical Code(s): F41.9 - Anxiety disorder, unspecified (7) Hypertension: Status: Chronic Category: Medical Code(s): I10 - Essential (primary) hypertension (8) Hypothyroidism (acquired): Status: Chronic Category: Medical Code(s): E03.9 - Hypothyroidism, unspecified (9) Nausea: Status: Acute Category: Medical Code(s): R11.0 - Nausea Plan Renal function continues to improve. Patient is still getting nauseated with movement. Will discuss further care with Dr. Campos. Patient was agreeable to have home health upon discharge. Dr. Campos entry - Saw patient, agree with above note. OK for discharge home today with home health care, f/u in office next week.
[2024-01-14] MEDS: IRBESARTAN 300MG TABLET 300 MG PO (09:52)
[2024-01-14] MEDS: GABAPENTIN 300MG CAPSULE 300 MG PO (09:52)
[2024-01-14] MEDS: MEMANTINE 10MG TABLET 10 MG PO (09:52)
[2024-01-14] MEDS: BRIVIACT 75 MG 1 EACH PO (09:54)
--- NOTE | 2024-01-14 16:34 | P.DS_ITS ---
General Admission date:: 01/11/24 Discharge date: 01/14/24 HPI HPI HPI: Medical Decision Narrative: 83-year-old female history of dementia, hypertension, hyperlipidemia, frequent UTI presenting with weakness. Family providing history. Patient daughter states that patient has been generally weak, unable to ambulate even to bedside commode to use the bathroom. This has been going on since yesterday, 01/09. Pa tient typically falling toward the left. No more confusion than usual, but she is generally weak and more tired. Patient's daughter states that patient's blood pressure has been all over the place and inconsistent. Patient has any complaints at this time. Patient's daughter adamantly denies falls, as does patient. History was obtained via conversation with patient and daughter. On arrival, patient hemodynamically stable, alert, oriented to person, appropriate, GCS 14, moving all extremities spontaneously, pupils equal and reactive to light. Full physical exam performed and significant for tired appearing woman in no acute distress. GCS 14. Cardiopulmonary exam within normal notes. Abdomen soft, nontender, nondistended. Patient's neurologic exam concerning for left upper extremity drift, bilateral lower extremity weakness, right greater than left. She also has difficulty with understanding finger-nose left upper extremity concerning for potential neglect. Differential includes sepsis, urinary tract infection, pneumonia, metabolic, Cardiologic, ACS, NH, among others. Independent interpretation of EKG shows sinus rhythm 75 beats a minute and intervals within normal limits. [place] normal. QRS narrow at 93, QTc 433. T wave inversions in 1 and aVL, unknown if these are new. Patient was given 1 L fluids for symptomatic management and correction of underlying abnormalities. Workup independently interpreted and significant for acute renal failure with RUFINA creatinine 4.4 and BUN 73. LFTs nonactionable, BNP elevated at 1400, troponin 0.05. Chest x-ray without acute cardiopulmonary airspace disease. CT head without acute intracranial hemorrhage, CTA head and neck without acute CVA. See radiology read for full review of final results. Heart score 4. Patient's PCP was contacted and case was discussed at length, patient be admitted for acute renal failure. Fluids given. Because patient high risk for clinical decompensation, deemed appropriate for inpatient admission. Results were relayed to patient daughter who voiced understanding and patient was agreeable to inpatient admission and management. Patient was admitted to the hospital for further definitive management. The above as per ER documentation CT of the head revealed atrophy and mild periventricular chronic ischemic changes and nothing acute. CT a of the head revealed no evidence of occlusion or significant stenosis. CTA of the neck showed no evidence of occlusion or significant stenosis. Chest x-ray revealed bibasilar atelectasis or pneumonia; CBC reveals a white blood cell count of 10,500 with a normal differential and with a hemoglobin of 13 and hematocrit of 37.7.. Blood chemistries reveal BUN of troponin I 0.05 and 0.05 73 and creatinine of 4.4. Troponin I is 0.05 and 0 0.05; BNP is elevated at 1410 Blood pressure in the emergency room varied from a low of 69/40 up to 182/129 after receiving a liter of IV fluids. She also received 40 Lasix IV. Additional history after patient admission. Daughter says she has not been doing well for the last 3 to 4 days. She has not been eating or drinking very well. Yesterday she was able to walk and has been unable to walk today. She has had a decrease in her urinary output as well. There have been no upper respiratory symptoms and no fever. Hospital Course Hospital Course Hospital Course: The patient's blood pressure was monitored and PT was consulted. A COVID test was also ordered and was negative. She did begin feeling much better and was able to eat [employer] as well as [employer]. She was started on IV fluids and her renal function began improving. Her troponin trended down and was likely due to renal failure. By 01/13/2024, she had been evaluated by PT and had been moved to the chair. This made her very nauseated and she had to be started on antiemetics. She was given more fluids along with potassium. By 01/14/2024, she was fine until she was moved to the chair and this made her nauseated and caused her to vomit. She did feel better after this happened and was able to eat. She did not want placement but was agreeable to home health upon discharge. She was stable to be discharged home and will follow-up with Dr. Campos. Exam Data for Last 24 hours Vital signs and Labs for Last 24 Hours: Temp Pulse Resp BP Pulse Ox O2 Del Method O2 Flow Rate 98.4 F 65 18 133/85 93 L Room Air 1 01/14/24 08:00 01/14/24 08:00 01/14/24 08:00 01/14/24 08:00 01/14/24 08:00 01/14/24 09:15 01/12/24 15:54 Laboratory Results - last 24 hr 01/14/24 05:39: Sodium 141, Potassium 4.3, Chloride 109 H, Carbon Dioxide 28, Anion Gap 8.3, BUN 31 H D, Creatinine 1.40 H, Estimated Creat Clear 38, Estimated GFR 36 L, Est GFR ( Amer) 43 L, Glucose 134 H, Calcium 10.0 I & O for Last 24 hours: Intake & Output 01/12/24 01/13/24 01/14/24 01/15/24 11:59 11:59 11:59 11:59 Intake Total 690 / 690 2174 / 2174 1605 / 1605 Output Total 2750 / 3500 1850 / 1850 500 / 500 Balance -2060 / -2810 324 / 324 1105 / 1105 Weight 178 lb 4 oz 180 lb 12.8 oz 180 lb 12.817 oz Narrative: Constitutional Constitutional: no acute distress *Routine HEENT Exam Head: Present normocephalic and atraumatic Eye: Present EOMI and PERRL; Absent conjunctival icterus, scleral injection or conjunctivae pink ENT: Present mucous membranes moist and oropharynx clear *Routine Neck Exam Neck: Present full ROM; Absent carotid bruit, lymphadenopathy or thyromegaly *Routine Respiratory Exam Respiratory: Present CTA bilaterally (With good bilateral breath sounds) *Routine Cardiovascular Exam Cardiovascular: Present RRR; Absent ectopic *Routine Abdominal Exam Abdominal: Present soft, normoactive bowel sounds and obese; Absent tenderness *Routine Rectal Exam Rectal:: deferred *Routine Genitalia Exam Genitalia:: deferred *Routine Extremities Exam Extremities: Present edema (Trace bilateral leg edema) *Routine Neurological Exam Neurological: Present alert, oriented X3, moving all extremities and normal speech; Absent nystagmus or facial asymmetry Comments: Hard of hearing Results Data Completed and Pending Labs on day of discharge: Labs from last 24 hours 01/14/24 05:39 Sodium 141 Potassium 4.3 Chloride 109 H Carbon Dioxide 28 Anion Gap 8.3 BUN 31 H D Creatinine 1.40 H Estimated Creat Clear 38 Estimated GFR 36 L Est GFR ( Amer) 43 L Glucose 134 H Calcium 10.0 DS: Diagnosis Discharge Diagnosis (1) Acute renal failure: Status: Acute Code(s): N17.9 - Acute kidney failure, unspecified (2) Weakness: Status: Acute Code(s): R53.1 - Weakness (3) Degenerative joint disease (DJD) of lumbar spine: Status: Chronic Code(s): M47.816 - Spondylosis without myelopathy or radiculopathy, lumbar region (4) Lumbosacral radiculopathy due to degenerative joint disease of spine: Status: Chronic Code(s): M47.27 - Other spondylosis with radiculopathy, lumbosacral region (5) Spinal stenosis, lumbar region with neurogenic claudication: Status: Chronic Code(s): M48.062 - Spinal stenosis, lumbar region with neurogenic claudication (6) Anxiety: Status: Chronic Code(s): F41.9 - Anxiety disorder, unspecified (7) Hypertension: Status: Chronic Code(s): I10 - Essential (primary) hypertension (8) Hypothyroidism (acquired): Status: Chronic Code(s): E03.9 - Hypothyroidism, unspecified (9) Nausea: Status: Acute Code(s): R11.0 - Nausea Meds Home Medications and Allergies Home Medications Medication Instructions Recorded Confirmed Type celecoxib 100 mg capsule 100 mg PO DAILY 01/02/21 01/11/24 History duloxetine 60 mg capsule,delayed 60 mg PO DAILY 01/02/21 01/11/24 History release esomeprazole magnesium 40 mg 40 mg PO DAILY 01/02/21 01/11/24 History capsule,delayed release meclizine 25 mg tablet 25 mg PO BIDP PRN Motion Sickness 01/02/21 01/11/24 Histo ry mirabegron 50 mg tablet,extended 50 mg PO DAILY 01/02/21 01/11/24 History release 24 hr alendronate 70 mg tablet 70 mg PO MO 01/03/21 01/12/24 History cholecalciferol (vitamin D3) 125 125 mcg PO DAILY 01/03/21 01/12/24 History mcg (5,000 unit) capsule cyanocobalamin (vitamin B-12) 500 500 mcg sublingual DAILY 01/03/21 01/11/24 History mcg disintegrating tablet,sublingual docusate sodium 250 mg capsule 250 mg PO BIDP PRN Constipation 01/03/21 01/11/24 History oxycodone 10 mg tablet 10 mg PO BID 01/03/21 01/11/24 History gabapentin 300 mg capsule 600 mg PO BID 01/16/21 01/11/24 History levothyroxine 25 mcg tablet 25 mcg PO DAILY 01/16/21 01/11/24 History donepezil 5 mg tablet 5 mg PO HS 08/20/22 01/11/24 History lorazepam 1 mg tablet 1 mg PO BID Anxiety 08/20/22 01/11/24 History memantine 5 mg tablet 5 mg PO BID 08/20/22 01/11/24 History brivaracetam 75 mg tablet 75 mg PO BID seizure #60 tabs 08/21/22 01/11/24 Rx loratadine 10 mg tablet 10 mg PO DAILYP PRN Allergy 03/31/23 01/12/24 History Symptoms multivitamin with minerals-folic 1 tab PO DAILY Supplement 03/31/23 01/11/24 History acid 0.4 mg tablet (One-A-Day Women's 50 Plus) irbesartan 300 1 tab PO DAILY 01/11/24 01/11/24 History mg-hydrochlorothiazide 12.5 mg tablet plecanatide 3 mg tablet (Trulance) 3 mg PO DAILY 01/11/24 01/12/24 History ondansetron 4 mg disintegrating 4 mg PO Q8H PRN nausea and 01/14/24 Rx tablet vomiting #20 tabs New Prescriptions to Start Prescriptions: ondansetron Triston Campos Allergies Allergy/AdvReac Type Severity Reaction Status Date / Time codeine Allergy Intermediate Rash Verified 01/04/24 13:02 Discharge Plan Disposition Patient Disposition: Home Health Service Condition: Fair Discharge Order Discharge Orders: Discharge Order (Routine); Ordered 01/14/24 Ordered By: Triston Campos Follow up Plan Follow up with: Triston Campos MD [Primary Care Provider] - 01/21/24 11:30 am Prescriptions/Medication Reconciliation: New ondansetron 4 mg tablet,disintegrating 4 mg PO Q8H PRN (Reason: nausea and vomiting) Qty: 20 0RF Continued gabapentin 300 mg capsule 600 mg PO BID Patient Comments: TAKE TWO CAPSULES BY MOUTH TWICE DAILY MAY CAUSE DROWSINESS levothyroxine 25 mcg tablet 25 mcg PO DAILY mirabegron 50 MG tablet extended release 24 hr 50 mg PO DAILY celecoxib 100 MG capsule 100 mg PO DAILY meclizine 25 MG tablet 25 mg PO BIDP PRN (Reason: Motion Sickness) esomeprazole magnesium 40 MG capsule,delayed release(DR/EC) 40 mg PO DAILY duloxetine 60 MG capsule,delayed release(DR/EC) 60 mg PO DAILY alendronate 70 MG tablet 70 mg PO MO docusate sodium 250 MG capsule 250 mg PO BIDP PRN (Reason: Constipation) oxycodone 10 MG tablet 10 mg PO BID cholecalciferol (vitamin D3) 125 MCG capsule 125 mcg PO DAILY cyanocobalamin (vitamin B-12) 500 MCG tablet,disintegrating 500 mcg sublingual DAILY donepezil 5 mg tablet 5 mg PO HS Patient Comments: TAKE ONE TABLET BY MOUTH EVERY DAY AT BEDTIME lorazepam 1 mg tablet 1 mg PO BID Patient Comments: TAKE ONE TABLET BY MOUTH TWICE DAILY MAY CAUSE DROWSINESS memantine 5 mg tablet 5 mg PO BID Patient Comments: TAKE ONE TABLET BY MOUTH TWICE DAILY brivaracetam 75 mg Tablet 75 mg PO BID Qty: 60 0RF irbesartan-hydrochlorothiazide 300-12.5 mg tablet 1 tab PO DAILY Patient Comments: TAKE ONE TABLET BY MOUTH EVERY DAY Trulance 3 mg tablet 3 mg PO DAILY Patient Comments: TAKE ONE TABLET BY MOUTH EVERY DAY loratadine 10 mg Tablet 10 mg PO DAILYP PRN (Reason: Allergy Symptoms) multivit with min-folic acid [One-A-Day Women's 50 Plus] 0.4 mg Tablet 1 tab PO DAILY Problem Reconciliation Problems Reviewed?: Yes Patient Discharge Instructions ACTIVITY: Continue current activity DIET: continue same diet Patient Instructions: DI for Muscle Weakness, DI for Altered Mental Status, DI for Acute Kidney Injury Providers Primary Care Provider: Triston Campos Admit Provider: Triston Campos Attending Provider: Triston Campos
--- NOTE | 2024-01-17 14:56 | CARE MANAGER ---
Contacted patient's daughter related to hospital discharge. She states her mom went home with her sister, but they had to take her to the hospital around [facility]. a day after discharge as patient was not acting right and not responding appropriately. She has been admitted there since then. She does have a UTI. They deny questions currently.
== END 2024-01-14 10:55 | disposition home health service (06) | DRG 684 ==
LOC: ER 14:22 → 2ND 14:27
PROVIDERS: Nurse Practitioner Family; Admitting Provider Family Medicine; Emergency Provider Emergency Medicine; PCP Family Medicine; Visit Provider Family Medicine
DX: N17.9 Acute kidney failure, unspecified (principal); F41.9 Anxiety disorder, unspecified; Z87.891 Personal history of nicotine dependence; E03.9 Hypothyroidism, unspecified; I10 Essential (primary) hypertension; F03.90 Unspecified dementia, unspecified severity, without behavioral disturbance, psychotic disturbance, mood disturbance, and anxiety; M48.062 Spinal stenosis, lumbar region with neurogenic claudication
CPT/HCPCS: 36415; 70450; 70496; 70498; 71045; 80048; 80053; 81001; 82803; 83880; 84443; 84484; 85007; 85014; 85018; 85025; 85048; 85049; 85610; 85730; 87635; 93005; 97162; 97530; 99291; J1940; J2405; J7120; Q9967

== ENCOUNTER 2024-01-26 13:17 | Outpatient (POV) | payer MEDICARE, MEDICAID, SELFPAY ==
--- NOTE | 2024-01-26 13:44 | EXP.PAIN.SOA ---
[facility] Disclaimer: The information contained in this section may have been updated after the patient was seen, as this information can be updated by other users. Medical History Anxiety Chronic low back pain Former smoker Frequent UTI Heart murmur HTN (hypertension) Hypothyroid Seizures Spinal stenosis Spinal stenosis in cervical region Surgical History No pertinent past surgical history Family History Other Family history of cancer Family history of heart attack Social History Smoking Status: Never smoker alcohol intake: never substance use type: denies use current occupational status: retired Travel in the last 8 weeks: None caregiver/support person: Yes (daughter) household members: family housing: house lives independently: No marital status: education level: middle school current occupational exposures/hazards: No caffeine: Yes special lion needs: No agree to transfusion: No PM Subjective & Objective Subjective Subjective:: Patient is a pleasant 83-year-old female who presents today for follow-up of left SI injection on 01/04/2024. Patient states that she feels like she had at least 75 to 80% relief following this injection however she has started to have more pain and tenderness up a little bit here on her left side. Patient denies any new falls or injuries. She does state that she was recently hospitalized for altered kidney function and that she is feeling much better from this hospitalization. Patient does feel like some of her pain forms almost a knot in her back along the left side and feels like it is in the muscle and hard to get to. She is interested in any help we may be able to provide as this pain is causing interference with her performing activities of daily living such as cooking and cleaning. She states the pain is constant and describes it as an aching, throbbing sensation that is worse with increased activity or ambulation. Patient is prescribed tizanidine 4 mg 3 times a day from our office and states that she does need refills. Her Jacob has been reviewed and is appropriate. Review of Systems: General: No recent weight changes, no fever, no sleep disturbances Respiratory: No cough, no shortness of air, no recurring pulmonary infections Cardiovascular/peripheral vascular: No chest pain, no palpitations, no edema, no shortness of breath Gastrointestinal: No new onset incontinence, normal bowel movements reported Genitourinary: No new onset incontinence Musculoskeletal: Low back pain left-sided Psychiatric: [Normal mood/affect] Neurological: [Denies weakness in extremities], [denies balance issues] Pain at rest (0-10 scale): 8 Objective Objective:: Physical Exam: General: Alert and oriented x3, no acute distress, pleasant and cooperative Lungs: Respirations even and unlabored, symmetrical chest expansion Eyes: PERRL Musculoskeletal: Flexion and extension of lumbar [spine] somewhat guarded secondary to pain, [antalgic gait noted] point tenderness along left lumbar paraspinous muscles Neurological: Speech clear, no gross sensory deficit Has patient had previous pain injection?: Yes Percent improvement in pain since last injection: 80% Conservative treatment options previously tried: Home exercise plan Length of treatment: Longer than 6 weeks and Prescription medications Length of treatment: Longer than 6 weeks Meds Home Medications and Allergies Home Medications ?Medication ?Instructions ?Recorded ?Confirmed ?Type celecoxib 100 mg capsule 100 mg PO DAILY 01/02/21 01/11/24 History duloxetine 60 mg capsule,delayed 60 mg PO DAILY 01/02/21 01/11/24 History release esomeprazole magnesium 40 mg 40 mg PO DAILY 01/02/21 01/11/24 History capsule,delayed release meclizine 25 mg tablet 25 mg PO BIDP PRN Motion Sickness 01/02/21 01/11/24 History mirabegron 50 mg tablet,extended 50 mg PO DAILY 01/02/21 01/11/24 History release 24 hr alendronate 70 mg tablet 70 mg PO MO 01/03/21 01/12/24 History cholecalciferol (vitamin D3) 125 125 mcg PO DAILY 01/03/21 01/12/24 History mcg (5,000 unit) capsule cyanocobalamin (vitamin B-12) 500 500 mcg sublingual DAILY 01/03/21 01/11/24 History mcg disintegrating tablet,sublingual docusate sodium 250 mg capsule 250 mg PO BIDP PRN Constipation 01/03/21 01/11/24 History oxycodone 10 mg tablet 10 mg PO BID 01/03/21 01/11/24 History gabapentin 300 mg capsule 600 mg PO BID 01/16/21 01/11/24 History levothyroxine 25 mcg tablet 25 mcg PO DAILY 01/16/21 01/11/24 History donepezil 5 mg tablet 5 mg PO HS 08/20/22 01/11/24 History lorazepam 1 mg tablet 1 mg PO BID Anxiety 08/20/22 01/11/24 History memantine 5 mg tablet 5 mg PO BID 08/20/22 01/11/24 History brivaracetam 75 mg tablet 75 mg PO BID seizure #60 tabs 08/21/22 01/11/24 Rx loratadine 10 mg tablet 10 mg PO DAILYP PRN Allergy 03/31/23 01/12/24 History Symptoms multivitamin with minerals-folic 1 tab PO DAILY Supplement 03/31/23 01/11/24 History acid 0.4 mg tablet (One-A-Day Women's 50 Plus) irbesartan 300 1 tab PO DAILY 01/11/24 01/11/24 History mg-hydrochlorothiazide 12.5 mg tablet plecanatide 3 mg tablet (Trulance) 3 mg PO DAILY 01/11/24 01/12/24 History ondansetron 4 mg disintegrating 4 mg PO Q8H PRN nausea and 01/14/24 Rx tablet vomiting #20 tabs New Prescriptions to Start Prescriptions: Allergies Allergy/AdvReac Type Severity Reaction Status Date / Time codeine Allergy Intermediate Rash Verified 01/04/24 13:02 Assessment and Plan *Assessment and plan (1) Myofascial pain on left side: Status: Acute Category: Medical Code(s): M79.18 - Myalgia, other site Plan Patient is experiencing worsening pain in her low back along her left lumbar paraspinous muscles. Patient did have point tenderness during today's visit. I did discuss with the patient that she may benefit from trigger point injections at this location. Risk and benefits were discussed with the patient and she would like to proceed forward with this plan of care. Patient has tried and failed conservative therapy including continued at home stretching exercise for longer than 6 weeks and in between injections. I will refill the patient's tizanidine and provide a 1 month supply of this medication. Patient will return to clinic for trigger point injections of her left lumbar paraspinous muscles. Patient has been instructed to contact the clinic with any concerns before the next appointment. Dr. Gonzalez has reviewed this note and agrees with this plan of care. This note was dictated using voice recognition software and make contain errors or omissions. All injections are used with Lidocaine or Bupivacaine and Depo Medrol.
[2024-01-26 14:49] VITALS: BP 154/66; PULSE 75; RESP 18; O2SAT 97; BMI 26.0
== END 2024-01-26 23:59 | disposition home or self-care (01) ==
PROVIDERS: Visit Provider Nurse Practitioner Family
DX: M79.18 Myalgia, other site (principal)
CPT/HCPCS: 99212; G0463

== ENCOUNTER 2024-02-08 13:50 | Day surgery (SDC) | payer MEDICARE, MEDICAID, SELFPAY ==
[2024-02-08 14:01] VITALS: BP 149/96; PULSE 90; RESP 16; TEMP 36.4; O2SAT 96; BMI 28.3
[2024-02-08] MEDS: LIDOCAINE 1% 5ML PF VIAL 5 ML (14:08)
[2024-02-08] MEDS: BUPIVACAINE 0.25% 10ML INJ 25 MG IJ (14:08)
--- NOTE | 2024-02-08 14:12 | P.PCN_ITS ---
Procedure Date: 02/08/24 Time: 14:15 Anesthesiologist:: Jim Ventura CRNA Complications:: None Pre-procedure Diagnosis:: Myofascial pain left lower lumbar paraspinous muscle. Post-procedure Diagnosis:: Same. Indications for Procedure:: Patient is a pleasant 83-year-old female who comes our clinic today for left low lumbar paraspinous muscle trigger point injection. Patient describes the pain in the left low lumbar back is constant, dull, aching. Patient having difficulty with extension and flexion due to the pain in the left low lumbar back paraspinous muscle. Procedure Details:: Details of the procedure explained to the patient. The patient taken procedure and placed in the seated position. The air over the left lumbar paraspinous muscle was cleaned using chlorhexidine as a cleansing solution. Using a 25- gauge inch and half needle of the left lumbar paraspinous muscle was injected into 3 separate areas with 4 cc in each area. The solution is combination of 0.25% Marcaine with 1% lidocaine and 40 mg of Depo-Medrol. Patient tolerated procedure without difficulty. There are no complications. Plan and Disposition:: Patient was discharged without incident.
[2024-02-08 14:16] VITALS: BP 179/83; PULSE 89; RESP 18; O2SAT 96
== END 2024-02-08 14:17 | disposition home or self-care (01) ==
PROVIDERS: PCP Family Medicine; Visit Provider Nurse Anesthetist, Certified Registered
DX: M79.18 Myalgia, other site (principal)
CPT/HCPCS: 20552; J1010

== ENCOUNTER 2024-02-17 22:37 | Emergency (ER) | payer MEDICARE, MEDICAID, SELFPAY ==
[2024-02-17 22:39] VITALS: BP 91/57; PULSE 70; RESP 18; TEMP 36.7; O2SAT 93; BMI 28.3
--- NOTE | 2024-02-17 22:55 | CT_ITS ---
PROCEDURE INFORMATION: Exam: CT Abdomen And Pelvis Without Contrast Exam date and time: 02/17/2024 11:23 PM Age: 83 years old Clinical indication: Other: UTI; Additional info: AMS, recent admit UTI, recurrence TECHNIQUE: Imaging protocol: Computed tomography of the abdomen and pelvis without contrast. Radiation optimization: All CT scans at this facility use at least one of these dose optimization techniques: automated exposure control; mA and/or kV adjustment per patient size (includes targeted exams where dose is matched to clinical indication); or iterative reconstruction. COMPARISON: CR XR HIP RT 2-3V W/PELVIS 03/09/2019 6:58 PM FINDINGS: Lungs: Dependent change noted at each lung base. Pleural spaces: No pleural fluid or pneumothorax. Heart: Heart size is upper limit of normal. Liver: Normal configuration. Homogeneous parenchyma. Gallbladder and biliary ducts: There is a large lamellated gallstone in the thin walled gallbladder. No biliary tree dilation. Pancreas: Mild fatty atrophy of the pancreas. No visible pancreatic edema or mass. Spleen: Normal. No splenomegaly. Adrenal glands: Normal configuration. Kidneys and ureters: Intrarenal stones on the left. There is a left distal ureteral stone measuring 3 x 4 mm just proximal to the ureterovesical junction. No significant obstructive change in the left kidney. No ureteral stones on the right. Kidneys are moderately atrophic with lobulated contours. Stomach and bowel: Unremarkable. No obstruction. No mural thickening. Appendix: No findings of acute appendicitis. Intraperitoneal space: No free air. No significant fluid collection. Vasculature: Infrarenal aortic ectasia measures 2.5 cm AP dimension. Lymph nodes: No enlarged lymph nodes. Urinary bladder: Unremarkable as visualized. Reproductive: Atrophic uterus as expected. No adnexal masses. Bones/joints: There is severe diffuse degenerative disc disease in the lumbar spine with mild spinal stenosis at L3-L4 and L4-L5. Mild bilateral sacroiliac osteoarthritis. Bilateral hip osteoarthritis. No fracture or destructive lesion in the scan range. Subjective bony demineralization. Soft tissues: Unremarkable. IMPRESSION: 1. There is a nonobstructing 3 x 4 mm calculus in the left distal ureter. Residual left intrarenal stones are noted. No stones on the right. Both kidneys are moderately atrophic. 2. Subjective bony demineralization could be quantified with DEXA.
--- NOTE | 2024-02-17 22:55 | CT_ITS ---
PROCEDURE INFORMATION: Exam: CT Head Without Contrast Exam date and time: 02/17/2024 11:18 PM Age: 83 years old Clinical indication: Altered mental status/memory loss; Additional info: AMS TECHNIQUE: Imaging protocol: Computed tomography of the head without contrast. Radiation optimization: All CT scans at this facility use at least one of these dose optimization techniques: automated exposure control; mA and/or kV adjustment per patient size (includes targeted exams where dose is matched to clinical indication); or iterative reconstruction. COMPARISON: 1. CT HEAD/BRAIN WO CON 01/11/2024 1:[address] ANGIO HEAD 01/11/2024 1:10 PM FINDINGS: Limitations: Motion artifact. Brain: No acute intracranial hemorrhage, midline shift or mass effect. Diffuse brain parenchymal volume loss. Mild hypodensities within the cerebral white matter most consistent with chronic small-vessel ischemic changes. Cerebral ventricles: No ventriculomegaly. Paranasal sinuses: Minimal scattered left ethmoid air cell mucosal thickening. No fluid levels. Mastoid air cells: Visualized mastoid air cells are well aerated. Bones: Unremarkable. No acute fracture. Soft tissues: Unremarkable. IMPRESSION: Motion limited exam. No acute intracranial findings.
--- NOTE | 2024-02-17 23:00 | CT_ITS ---
PROCEDURE INFORMATION: Exam: CT Chest Without Contrast; Diagnostic Exam date and time: 02/17/2024 11:20 PM Age: 83 years old Clinical indication: Other: AMS TECHNIQUE: Imaging protocol: Diagnostic computed tomography of the chest without contrast. Radiation optimization: All CT scans at this facility use at least one of these dose optimization techniques: automated exposure control; mA and/or kV adjustment per patient size (includes targeted exams where dose is matched to clinical indication); or iterative reconstruction. COMPARISON: CT CHEST WO CON 02/17/2024 11:20 PM FINDINGS: Thyroid: Peripherally calcified 1.3 cm nodule noted in the right thyroid lobe. Lungs: There is dependent change at each lung base. No airspace disease. Pleural spaces: No pneumothorax. No pleural effusion. Heart: Mild cardiomegaly. Coronary arteries: Extensive coronary artery hyperdensity could be calcification and/or stent material. Lymph nodes: Anterior mediastinal soft tissue nodule may be a lymph node measuring 0.9 cm short axis diameter. Vasculature: Enlarged main pulmonary artery trunk measures 4.0 cm in diameter. Bones/joints: No acute fracture or destructive lesion. Soft tissues: Unremarkable. IMPRESSION: 1. No convincing acute airspace disease. There is dependent change at each lung base. 2. Mild cardiomegaly without evidence of heart failure. 3. Peripherally calcified nodule noted in the right thyroid lobe could be further evaluated with nonemergent ultrasound. COMMENTS: Consistent with the [employer]'s Incidental Findings Committee white paper (J Am Calvin Radiol 2015): In patients aged 35 years and older with an incidental thyroid nodule equal to or greater than 1.[address], MRI or extrathyroidal US, further evaluation with dedicated thyroid US is recommended for patients with normal life expectancy and without comorbidities. For smaller nodules without suspicious features, no further evaluation or follow up is recommended.
--- NOTE | 2024-02-17 23:01 | ED_ITS ---
Discharge Plan Disposition Patient Disposition: Xfer Other Prescriptions Prescriptions: No Action gabapentin 300 mg capsule 600 mg PO BID Patient Comments: TAKE TWO CAPSULES BY MOUTH TWICE DAILY MAY CAUSE DROWSINESS levothyroxine 25 mcg tablet 25 mcg PO DAILY mirabegron 50 MG tablet extended release 24 hr 50 mg PO DAILY celecoxib 100 MG capsule 100 mg PO DAILY meclizine 25 MG tablet 25 mg PO BIDP PRN (Reason: Motion Sickness) esomeprazole magnesium 40 MG capsule,delayed release(DR/EC) 40 mg PO DAILY duloxetine 60 MG capsule,delayed release(DR/EC) 60 mg PO DAILY alendronate 70 MG tablet 70 mg PO MO docusate sodium 250 MG capsule 250 mg PO BIDP PRN (Reason: Constipation) oxycodone 10 MG tablet 10 mg PO BID PRN (Reason: Pain) cholecalciferol (vitamin D3) 125 MCG capsule 125 mcg PO DAILY cyanocobalamin (vitamin B-12) 500 MCG tablet,disintegrating 500 mcg sublingual DAILY donepezil 5 mg tablet 5 mg PO HS Patient Comments: TAKE ONE TABLET BY MOUTH EVERY DAY AT BEDTIME lorazepam 1 mg tablet 1 mg PO BID Patient Comments: TAKE ONE TABLET BY MOUTH TWICE DAILY MAY CAUSE DROWSINESS memantine 5 mg tablet 5 mg PO BID Patient Comments: TAKE ONE TABLET BY MOUTH TWICE DAILY brivaracetam 75 mg Tablet 75 mg PO BID Qty: 60 0RF tizanidine [Zanaflex] 4 mg tablet 4 mg PO TID Qty: 90 0RF irbesartan-hydrochlorothiazide 300-12.5 mg tablet 1 tab PO DAILY Patient Comments: TAKE ONE TABLET BY MOUTH EVERY DAY Trulance 3 mg tablet 3 mg PO DAILY Patient Comments: TAKE ONE TABLET BY MOUTH EVERY DAY ondansetron 4 mg tablet,disintegrating 4 mg PO Q8H PRN (Reason: nausea and vomiting) Qty: 20 0RF loratadine 10 mg Tablet 10 mg PO DAILYP PRN (Reason: Allergy Symptoms) multivit with min-folic acid [One-A-Day Women's 50 Plus] 0.4 mg Tablet 1 tab PO DAILY Referrals Follow up/Referrals: Triston Campos MD [Primary Care Provider] - See instructions Clinical Impressions Clinical Impression: Septic shock, Obstruction of left ureteropelvic junction (UPJ) due to stone, Acute renal failure, AMS (altered mental status), Acute uremia, Metabolic acidosis Stand Alone Forms Stand Alone Forms: Transfer Record - ED Instructions Patient Instructions: DI for Urinary Tract Infection (UTI), DI for Urinary Tract Infection in Children Print Language Print Language: Albanian Discharge ED Provider: Ranjan Camp General Adult HPI <Gela Kelby EvangelistaDO - Last Filed: 02/17/24 23:07> General Chief complaint: Urogenital-Female Stated complaint: Frequency,burning with urination Time Seen by Provider: 02/17/24 22:50 History of Present Illness HPI narrative: This patient is an 83-year-old female with a history of dementia, hypertension, hypothyroidism, spinal stenosis with chronic pain presenting to the emergency department for evaluation with concern for possible infection and altered mental status. According to the family, the patient had a UTI about a month ago for which she was admitted to the hospital. They state that she has been doing okay since going home, up until about 3 days ago when she had a rapid decline again. They state that Dr. Campos checked labs in his office and her white blood cell count was very high, so he was concerned for infection. She is not able to provide a urine specimen there. They do state that this is very similar to when she had a recent UTI. They state that she is been very lethargic, had no appetite, and has been very confused, more so than normal. They state that she slept all day long. No other specific concerns or complaints noted at this time. Patient is altered and does not contribute much to history but she denies any concerns or complaints. Related Data Home Medications ?Medication ?Instructions ?Recorded ?Confirmed celecoxib 100 mg capsule 100 mg PO DAILY 01/02/21 02/17/24 duloxetine 60 mg capsule,delayed 60 mg PO DAILY 01/02/21 02/17/24 release esomeprazole magnesium 40 mg 40 mg PO DAILY 01/02/21 02/17/24 capsule,delayed release meclizine 25 mg tablet 25 mg PO BIDP PRN Motion Sickness 01/02/21 02/17/24 mirabegron 50 mg tablet,extended 50 mg PO DAILY 01/02/21 02/08/24 release 24 hr alendronate 70 mg tablet 70 mg PO MO 01/03/21 02/17/24 cholecalciferol (vitamin D3) 125 125 mcg PO DAILY 01/03/21 02/17/24 mcg (5,000 unit) capsule cyanocobalamin (vitamin B-12) 500 500 mcg sublingual DAILY 01/03/21 02/17/24 mcg disintegrating tablet,sublingual docusate sodium 250 mg capsule 250 mg PO BIDP PRN Constipation 01/03/21 02/17/24 oxycodone 10 mg tablet 10 mg PO BID PRN Pain 01/03/21 02/08/24 gabapentin 300 mg capsule 600 mg PO BID 01/16/21 02/17/24 levothyroxine 25 mcg tablet 25 mcg PO DAILY 01/16/21 02/17/24 donepezil 5 mg tablet 5 mg PO HS 08/20/22 02/17/24 lorazepam 1 mg tablet 1 mg PO BID Anxiety 08/20/22 02/17/24 memantine 5 mg tablet 5 mg PO BID 08/20/22 02/17/24 loratadine 10 mg tablet 10 mg PO DAILYP PRN Allergy 03/31/23 02/17/24 Symptoms multivitamin with minerals-folic 1 tab PO DAILY Supplement 03/31/23 02/17/24 acid 0.4 mg tablet (One-A-Day Women's 50 Plus) irbesartan 300 1 tab PO DAILY 01/11/24 02/17/24 mg-hydrochlorothiazide 12.5 mg tablet plecanatide 3 mg tablet (Trulance) 3 mg PO DAILY 01/11/24 02/17/24 Previous Rx's ?Medication ?Instructions ?Recorded brivaracetam 75 mg tablet 75 mg PO BID seizure #60 tabs 08/21/22 ondansetron 4 mg disintegrating 4 mg PO Q8H PRN nausea and 01/14/24 tablet vomiting #20 tabs tizanidine 4 mg tablet (Zanaflex) 4 mg PO TID #90 tabs 01/26/24 Allergies Allergy/AdvReac Type Severity Reaction Status Date / Time codeine Allergy Intermediate Rash Verified 01/04/24 13:02 PENDING SALE TO [facility] <Gela Evangelista DO - Last Filed: 02/17/24 23:07> PENDING SALE TO [facility] Disclaimer: The information contained in this section may have been updated after the patient was seen, as this information can be updated by other users. Medical History Breakthrough seizure Adjustment disorder Community acquired pneumonia Spinal stenosis, lumbar region with neurogenic claudication Lumbosacral radiculopathy due to degenerative joint disease of spine Degenerative joint disease (DJD) of lumbar spine Hypothyroidism (acquired) Hypertension Seizure Chronic low back pain Frequent UTI Heart murmur Anxiety Spinal stenosis Spinal stenosis in cervical region Former smoker Hypothyroid HTN (hypertension) Seizures Surgical History No pertinent past surgical history Family History Other Family history of cancer Family history of heart attack Social History Smoking Status: Former smoker tobacco type: cigarettes alcohol intake: never substance use type: denies use current occupational status: retired Travel in the last 8 weeks: None caregiver/support person: Yes (daughter) household members: family housing: house lives independently: No marital status: education level: middle school current occupational exposures/hazards: No caffeine: Yes special lion needs: No agree to transfusion: No <Gela Evangelista DO - Last Filed: 02/17/24 23:07> ROS Obtained: Yes All systems reviewed & no additional complaints except as documented Physical Exam <Gela Evangelista DO - Last Filed: 02/17/24 23:07> General General appearance: lethargic and obese Head Head exam: atraumatic and normocephalic Eye Eye exam: Present normal appearance, PERRL and EOMI ENT ENT exam: Present normal exam, normal oropharynx, mucous membranes moist and normal external ear exam Neck Neck exam: Present normal inspection, full ROM and trachea midline; Absent tenderness Chest Chest inspection: Present normal inspection and symmetric chest wall rise; Absent tenderness Respiratory Respiratory exam: Present normal lung sounds bilaterally; Absent respiratory distress, wheezes, stridor or accessory muscle use Cardiovascular Cardiovascular exam: Present regular rate and normal rhythm Abdominal Exam Abdominal exam: Present soft; Absent distention, tenderness or guarding Extremities Exam Extremities exam: Present normal inspection, full ROM and normal capillary refill; Absent tenderness or edema Back Exam Back exam: Present normal inspection and full ROM; Absent tenderness Neurological Exam Neurological exam: Present CN II-XII intact; Absent oriented X3 or motor sensory deficit (Generally weak without focal deficits) Psychiatric Psychiatric exam: Present normal affect and normal mood Skin Skin exam: Present warm, dry and pallor Medical Decision Making <Gela Evangelista, DO - Last Filed: 02/17/24 23:07> Medical Records Medical records reviewed: Yes I reviewed the patient's medical records. Jacob Inquiry Pt receiving controlled substance: No Vital Signs: 02/17/24 22:39 02/17/24 23:13 Temperature 98.0 F Temperature Source Oral Pulse Rate 78 Pulse Rate [Right] 70 Respiratory Rate 18 13 Blood Pressure 87/49 L Blood Pressure [Right Arm] 91/57 L Blood Pressure Mean [Right Arm] 68 02 Sat by Pulse Oximetry 93 L 95 Oxygen Delivery Method Nasal Cannula Nasal Cannula Oxygen Flow Rate (LPM) 3 3 Lab Data Lab results reviewed: Yes I reviewed the patient's lab results. Lab Results 02/17/24 22:55: VBG pH 7.22 L, VBG pCO2 47.8, VBG pO2 36.6, VBG HCO3 19.2 L, VBG Total CO2 20.6 L, VBG O2 Saturation 65.7, VBG Base Excess -8.5 L, VBG Lactic Acid 2.7 H 02/17/24 23:10: WBC 19.7 H, RBC 3.91 L, Hgb 13.3, Hct 42.1, MCV 107.7 H, MCH 34.0 H, MCHC 31.5 L, RDW 13.9, Plt Count 235, MPV 10.0, Neut % (Auto) 84.1 H, L ymph % (Auto) 8.7 L, Roosevelt % (Auto) 6.5, Eos % (Auto) 0.2, Baso % (Auto) 0.5, N eut # (Auto) 16.6 H, Lymph # (Auto) 1.7, Roosevelt # (Auto) 1.3 H, Eos # (Auto) 0.0, Baso # (Auto) 0.1, Total Counted 100, Neutrophils % (Manual) 88 H, Lymphocytes % (Manual) 11, Monocytes % (Manual) 1 L, RBC Morphology Normal, PT 11.6, INR 1.04, APTT 31.3 H, Sodium 131 L, Potassium 5.4 H, Chloride 99, Carbon Dioxide 17 L, A nion Gap 20.4 H, BUN 97 H, Creatinine 6.50 H, Estimated Creat Clear 8, Estimated GFR 6 L*, Est GFR ( Amer) 7 L*, Glucose 102 H, Calcium 8.5, Total Bilirubin 0.7, AST 22, ALT 15, Alkaline Phosphatase 78, Troponin I 0.13 H, N T-Pro-B Natriuret Pep 99129 H, Total Protein 7.2, Albumin 3.9, Globulin 3.3 H, Albumin/Globulin Ratio 1.2, Lipase 20 L, TSH 2.43, Thyroxine (T4) 7.9 02/17/24 23:31: Ammonia < 9 L 02/17/24 23:45: Urine Color Yellow, Urine Appearance Clear, Urine pH 5.5, Ur Specific [place] >= 1.030, Urine Protein 2+, Urine Glucose (UA) Negative, Urine Ketones Negative, Urine Blood 2+, Urine Nitrate Negative, Urine Bilirubin Negative, Urine Urobilinogen 0.2, Ur Leukocyte Esterase 2+ A, Urine RBC 5-10, Urine WBC Tntc, Urine Bacteria 2+, SARS-CoV-2 (PCR) Not detected, Influenza A Untype (PCR) Not detected, Influenza Type B (PCR) Not detected 02/17/24 23:10 02/17/24 23:10 Orders (Tests/Meds): ED MEDICATIONS Generic Name Dose Route Start Last Admin Trade Name Freq PRN Reason Stop Dose Admin Piperacillin Sod/Tazobactam 100 mls @ 200 mls/hr 02/18/24 00:12 02/18/24 00:19 Sod 4.5 gm/ Sodium Chloride IV 02/18/24 00:41 200 mls/hr ONCE ONE Administration Norepinephrine/Dextrose 8 mg in 250 mls @ 3.75 mls/hr 02/18/24 00:48 02/18/24 00:59 Norepinephrine 8mg/250ml-D5w Premix IV 03/19/24 00:47 2 mcg/min .Q24H JACQUI 3.75 mls/hr Administration Protocol 2 MCG/MIN Discontinued Medications Generic Name Dose Route Start Last Admin Trade Name Freq PRN Reason Stop Dose Admin Lactated Ringer's 1,710 mls @ 855 mls/hr 02/17/24 23:13 02/17/24 23:27 Lactated Ringer's 1000 Ml Bag 30 ml/kg infuse over 2 hr (1710 ml) 02/18/24 01:12 855 mls/hr IV Administration .Q2H ONE Piperacillin Sod/Tazobactam 100 mls @ 200 mls/hr 02/17/24 23:54 Sod 4.5 gm/ Sodium Chloride IV 02/18/24 00:23 ONCE ONE ORDERS Category Date Time Status CT abdomen pelvis wo con Stat Cat Scan 02/17/24 22:[address] chest wo con Stat Cat Scan 02/17/24 23:[address] head/brain wo con Stat Cat Scan 02/17/24 22:55 Completed Ammonia Stat Lab 02/17/24 23:31 Completed BNP [NT Pro Brain Natriuretic Pep.] Stat Lab 02/17/24 23:10 Completed Complete Blood Count Auto Diff Stat Lab 02/17/24 23:10 Completed Comprehensive Metabolic Panel Stat Lab 02/17/24 23:10 Completed Lipase Stat Lab 02/17/24 23:10 Completed PT INR [Prothrombin Time INR] Stat Lab 02/17/24 23:10 Completed PTT [Activated Partial Thrombo Time] Stat Lab 02/17/24 23:10 Completed Rapid PCR Covid and Flu A/B Stat Lab 02/17/24 23:45 Completed T4 (Thyroxine) Stat Lab 02/17/24 23:10 Completed TSH [Thyroid Stimulating Hormone] Stat Lab 02/17/24 23:10 Completed Trop I [Troponin I] Stat Lab 02/17/24 23:10 Completed Troponin I Q3H Lab 02/18/24 02:00 Ordered Troponin I Q3H Lab 02/18/24 05:00 Ordered UA [Urinalysis and Microscopic] Stat Lab 02/17/24 23:45 Completed Blood Culture Stat Micro 02/17/24 23:10 Received Urine Culture Stat Micro 02/17/24 23:45 Received VBG [Venous Blood Gas] Stat RT 02/17/24 22:55 Completed ECG Data Tracing #1: I reviewed this ECG and interpreted as documented below: Normal sinus rhythm with a ventricular rate of [address] changes concerning for ischemia. Left axis deviation. Normal intervals. ECG initial impression date: 02/17/24 ECG initial impression time: 23:06 Medical Decision Narrative: In summary, this patient is a 83-year-old female presenting to the Emergency Department for evaluation of altered mental status, lethargy, and reportedly high white blood cell count at her primary care provider's office. Differential diagnoses considered include but are not limited to sepsis, urinary tract infection, pneumonia, CVA, intracranial hemorrhage, hypothyroidism, other cause of altered mental status. Ruling out the most morbid conditions drove assessment. It should be noted patient's history includes hypertension, hypothyroidism, dementia which are likely not at goal therapy. This complicates all aspects of care by increasing patient's risk for morbidity. I reviewed patient's past medical records and noted recent admission about a month ago for UTI/RUFINA and similar presentation. On exam, the patient is very lethargic, pale, hypotensive. Difficult to be given O2 saturation. She arouses to voice and denies any specific concerns or complaints, though she is not oriented. She does have history of dementia. Workup included lab workup to evaluate for infectious, metabolic, cardiac causes of altered mental status as well as CT head, CT chest/abdomen/pelvis without contrast in the setting of chronic renal insufficiency. She was given a sepsis bolus of IV fluids. EKG was obtained is reassuring without acutely concerning abnormalities. Patient care signed out to the oncoming provider, Dr. Camp, pending workup and likely admission for AMS. <Ranjan Camp MD - Last Filed: 02/18/24 01:23> Vital Signs: 02/17/24 22:39 02/17/24 23:13 Temperature 98.0 F Temperature Source Oral Pulse Rate 78 Pulse Rate [Right] 70 Respiratory Rate 18 13 Blood Pressure 87/49 L Blood Pressure [Right Arm] 91/57 L Blood Pressure Mean [Right Arm] 68 02 Sat by Pulse Oximetry 93 L 95 Oxygen Delivery Method Nasal Cannula Nasal Cannula Oxygen Flow Rate (LPM) 3 3 Lab Data Lab Results 02/17/24 22:55: VBG pH 7.22 L, VBG pCO2 47.8, VBG pO2 36.6, VBG HCO3 19.2 L, VBG Total CO2 20.6 L, VBG O2 Saturation 65.7, VBG Base Excess -8.5 L, VBG Lactic Acid 2.7 H 02/17/24 23:10: WBC 19.7 H, RBC 3.91 L, Hgb 13.3, Hct 42.1, MCV 107.7 H, MCH 34.0 H, MCHC 31.5 L, RDW 13.9, Plt Count 235, MPV 10.0, Neut % (Auto) 84.1 H, L ymph % (Auto) 8.7 L, [place] % (Auto) 6.5, Eos % (Auto) 0.2, Baso % (Auto) 0.5, N eut # (Auto) 16.6 H, Lymph # (Auto) 1.7, [place] # (Auto) 1.3 H, Eos # (Auto) 0.0, Baso # (Auto) 0.1, Total Counted 100, Neutrophils % (Manual) 88 H, Lymphocytes % (Manual) 11, Monocytes % (Manual) 1 L, RBC Morphology Normal, PT 11.6, INR 1.04, APTT 31.3 H, Sodium 131 L, Potassium 5.4 H, Chloride 99, Carbon Dioxide 17 L, A nion Gap 20.4 H, BUN 97 H, Creatinine 6.50 H, Estimated Creat Clear 8, Estimated GFR 6 L*, Est GFR ( Amer) 7 L*, Glucose 102 H, Calcium 8.5, Total Bilirubin 0.7, AST 22, ALT 15, Alkaline Phosphatase 78, Troponin I 0.13 H, N T-Pro-B Natriuret Pep 50111 H, Total Protein 7.2, Albumin 3.9, Globulin 3.3 H, Albumin/Globulin Ratio 1.2, Lipase 20 L, TSH 2.43, Thyroxine (T4) 7.9 02/17/24 23:31: Ammonia < 9 L 02/17/24 23:45: Urine Color Yellow, Urine Appearance Clear, Urine pH 5.5, Ur Specific [place] >= 1.030, Urine Protein 2+, Urine Glucose (UA) Negative, Urine Ketones Negative, Urine Blood 2+, Urine Nitrate Negative, Urine Bilirubin Negative, Urine Urobilinogen 0.2, Ur Leukocyte Esterase 2+ A, Urine RBC 5-10, Urine WBC Tntc, Urine Bacteria 2+, SARS-CoV-2 (PCR) Not detected, Influenza A Untype (PCR) Not detected, Influenza Type B (PCR) Not detected Orders (Tests/Meds): ED MEDICATIONS Generic Name Dose Route Start Last Admin Trade Name Freq PRN Reason Stop Dose Admin Piperacillin Sod/Tazobactam 100 mls @ 200 mls/hr 02/18/24 00:12 02/18/24 00:19 Sod 4.5 gm/ Sodium Chloride IV 02/18/24 00:41 200 mls/hr ONCE ONE Administration Norepinephrine/Dextrose 8 mg in 250 mls @ 3.75 mls/hr 02/18/24 00:48 02/18/24 00:59 Norepinephrine 8mg/250ml-D5w Premix IV 03/19/24 00:47 2 mcg/min .Q24H JACQUI 3.75 mls/hr Administration Protocol 2 MCG/MIN Discontinued Medications Generic Name Dose Route Start Last Admin Trade Name Edilson PRN Reason Stop Dose Admin Lactated Ringer's 1,710 mls @ 855 mls/hr 02/17/24 23:13 02/17/24 23:27 Lactated Ringer's 1000 Ml Bag 30 ml/kg infuse over 2 hr (1710 ml) 02/18/24 01:12 855 mls/hr IV Administration .Q2H ONE Piperacillin Sod/Tazobactam 100 mls @ 200 mls/hr 02/17/24 23:54 Sod 4.5 gm/ Sodium Chloride IV 02/18/24 00:23 ONCE ONE ORDERS Category Date Time Status CT abdomen pelvis wo con Stat Cat Scan 02/17/24 22:[address] chest wo con Stat Cat Scan 02/17/24 23:[address] head/brain wo con Stat Cat Scan 02/17/24 22:55 Completed Ammonia Stat Lab 02/17/24 23:31 Completed BNP [NT Pro Brain Natriuretic Pep.] Stat Lab 02/17/24 23:10 Completed Complete Blood Count Auto Diff Stat Lab 02/17/24 23:10 Completed Comprehensive Metabolic Panel Stat Lab 02/17/24 23:10 Completed Lipase Stat Lab 02/17/24 23:10 Completed PT INR [Prothrombin Time INR] Stat Lab 02/17/24 23:10 Completed PTT [Activated Partial Thrombo Time] Stat Lab 02/17/24 23:10 Completed Rapid PCR Covid and Flu A/B Stat Lab 02/17/24 23:45 Completed T4 (Thyroxine) Stat Lab 02/17/24 23:10 Completed TSH [Thyroid Stimulating Hormone] Stat Lab 02/17/24 23:10 Completed Trop I [Troponin I] Stat Lab 02/17/24 23:10 Completed Troponin I Q3H Lab 02/18/24 02:00 Ordered Troponin I Q3H Lab 02/18/24 05:00 Ordered UA [Urinalysis and Microscopic] Stat Lab 02/17/24 23:45 Completed Blood Culture Stat Micro 02/17/24 23:10 Received Urine Culture Stat Micro 02/17/24 23:45 Received VBG [Venous Blood Gas] Stat RT 02/17/24 22:55 Completed Medical Decision Narrative: In summary, this patient is a 83-year-old female presenting to the Emergency Department for evaluation of altered mental status, lethargy, and reportedly high white blood cell count at her primary care provider's office. Differential diagnoses considered include but are not limited to sepsis, urinary tract infection, pneumonia, CVA, intracranial hemorrhage, hypothyroidism, other cause of altered mental status. Ruling out the most morbid conditions drove assessment. It should be noted patient's history includes hypertension, hypothyroidism, dementia which are likely not at goal therapy. This complicates all aspects of care by increasing patient's risk for morbidity. I reviewed patient's past medical records and noted recent admission about a month ago for UTI/RUFINA and similar presentation. On exam, the patient is very lethargic, pale, hypotensive. Difficult to be given O2 saturation. She arouses to voice and denies any specific concerns or complaints, though she is not oriented. She does have history of dementia. Workup included lab workup to evaluate for infectious, metabolic, cardiac causes of altered mental status as well as CT head, CT chest/abdomen/pelvis without contrast in the setting of chronic renal insufficiency. She was given a sepsis bolus of IV fluids. EKG was obtained is reassuring without acutely concerning abnormalities. Patient care signed out to the oncoming provider, Dr. Camp, pending workup and likely admission for AMS. Conrado WALLACE: I assumed care of the patient at the time of handoff from the prior provider. On reassessment patient roxann hypotensive despite 1 L IV fluid bolus. Second IV fluid bolus on pressure bag with appropriate response. Blood pressure now 107/78 after second liter. Patient was initiated on 4.5 g of IV Zosyn. Her prior urine results have all been pansensitive. Laboratory results independently interpreted by me and significant for acute renal failure with creatinine 6.5, up from baseline around 1.4 with BUN 97. Patient also has metabolic acidosis with pH 7.22. White count elevated at 20. Potassium 5.4, no hyperkalemic changes on EKG CT imaging independently interpreted by me and significant for no intracranial bleeding. No large consolidation on CT chest. CT abdomen pelvis shows a obstructing left UPJ stone approximately 5 x 6 x 3 mm with mild hydroureter and hydronephrosis. Also shows a dilated gallbladder with a gallstone but no gallbladder wall thickening or pericholecystic fluid. Patient again became hypotensive, Levophed was initiated at 0.05 mcg/kg/min. Taken together, patient presentation is most consistent with septic shock and acute renal failure secondary to obstructing septic stone. Interact discussion was had with the [facility] and Dr. Gtz. Patient will be admitted to the ICU for further management. Critical Care <Gela Evangelista DO - Last Filed: 02/17/24 23:07> Critical Care Time Critical Care Time: No <Ranjan Camp MD - Last Filed: 02/18/24 01:23> Critical Care Time Critical Care Time: Yes Attestation: On 02/17/24, the high probability of a clinically significant, sudden or life threatening deterioration of the following system(s) cardiac, renal required my full and direct attention, intervention and personal management. The time I documented below is in addition to time spent performing reported procedures but includes the following listed in this critical care notation. Total Time Total Critical Care Time: 65
--- NOTE | 2024-02-17 23:05 | ECG_ITS ---
APPROVED REPORT Exam: Resting ECG HR:80 bpm ECG Measurements Heart Rate 80 AXES TX 205 P 48 QRSd 88 QRS -40 QT 374 T 71 QTc 410 Conclusion SINUS RHYTHM LEFT AXIS DEVIATION [QRS AXIS < -30] NONSPECIFIC T-WAVE ABNORMALITY ABNORMAL ECG Electronically signed by : ALLIE MURRAY, 02/19/2024 15:41:33
[2024-02-17 23:13] VITALS: BP 87/49; PULSE 78; RESP 13; O2SAT 95
--- NOTE | 2024-02-17 23:16 | PC.NURSE ---
pt transported to CT at this time.
[2024-02-17] MEDS: LACTATED RINGERS 1000ML 1,710 ML 855 ML IV (23:27)
[2024-02-17 23:32] LABS: VBG Base Excess -8.5 mmol/L (-2.4-2.3); VBG HCO3 19.2 mmol/L (23-30); VBG Oxygen Saturation 65.7 % (50-70); VBG PCO2 47.8 mmol/L (35-51); VBG PH 7.22 mmol/L (7.31-7.41); VBG PO2 36.6 mmol/L (28-40); VBG Total CO2 20.6 mmol/L (23-27)
[2024-02-17 23:33] LABS: Lactate Venous 2.7 mmol/L (0.4-2.0)
[2024-02-17 23:35] LABS: Albumin Level 3.9 g/dl (3.5-5.0); Chloride 99 mmol/L (98-107); Potassium 5.4 mmoL/L (3.5-5.1); Sodium 131 mmol/L (136-145)
[2024-02-17 23:38] LABS: Alanine Aminotransferase 15 U/L (12-78); Albumin/Globulin Ratio 1.2 (1.1-1.8); Alkaline Phosphatase 78 U/L (38-126); Anion Gap 20.4 mEq/L (5-15); Aspartate Amino Transferase 22 U/L (14-36); Bilirubin,Total 0.7 mg/dl (0.2-1.3); Carbon Dioxide 17 mmol/L (22.0-30.0); Creatinine Clearance Estimated 8 mL/min (50-200); Estimated Glomerular Filt Rate 6 ml/min (>60); GFR (African American) 7 ML/MIN (>60); Globulin 3.3 g/dL (1.3-3.2); Lipase 20 U/L (23-300); Total Protein,Serum 7.2 g/dl (6.3-8.2)
[2024-02-17 23:39] LABS: Calcium 8.5 mg/dl (8.4-10.2); Glucose 102 mg/dl (74-100)
[2024-02-17 23:41] LABS: Activated Partial Thrombo Time 31.3 seconds (22.8-30.6); INR 1.04 (0.9-1.1); Prothrombin Time 11.6 seconds (10.1-12.5)
[2024-02-17 23:42] LABS: Blood Urea Nitrogen 97 mg/dl (7-17)
[2024-02-17 23:47] LABS: Microscopic, Urine URINE MICROSCOPIC (MICROSCOPIC)
[2024-02-17 23:48] LABS: Appearance,Urine CLEAR (Clear); Blood, Urine 2+ (Negative); Color,Urine YELLOW (Yellow); Glucose,Urine (UA) Negative (Negative); Ketones,Urine Negative (Negative); Leukocyte Esterase,Urine 2+ (Negative); Nitrate,Urine Negative (Negative); PH,Urine 5.5 (5.0-8.5); Protein,Urine 2+ (Negative); Specific Gravity, Urine >= 1.030 (1.005-1.030); Urobilinogen,Urine 0.2 EU/dl (0.2)
[2024-02-17 23:49] LABS: NT Pro Brain Natriuretic Pep. 10500 pg/mL (0-450)
[2024-02-17 23:50] LABS: Basophils # 0.1 K/mm3 (0-0.2); Basophils % 0.5 % (0.1-2.0); Eosinophils % 0.2 % (0.1-12.0); Hematocrit 42.1 % (37.0-47.0); Hemoglobin 13.3 g/dL (12.2-16.2); Lymphocytes # 1.7 K/mm3 (0.7-4.5); Lymphocytes % 8.7 % (10-50); Mean Corpuscular HGB Conc 31.5 g/dL (31.8-35.4); Mean Corpuscular Volume 107.7 fl (81-99); Monocytes # 1.3 K/mm3 (0.1-1.0); Monocytes % 6.5 % (1.7-9.3); Neutrophils # 16.6 K/mm3 (1.8-7.8); Neutrophils % 84.1 % (37.0-80.0); Platelet Count 235 K/mm3 (142-424); Red Blood Count 3.91 M/mm3 (4.20-5.40); Red Cell Distribution Width 13.9 % (11.5-17.5); White Blood Count 19.7 K/mm3 (4.8-10.8)
[2024-02-17 23:51] LABS: Troponin I 0.13 ng/ml (0.00-0.034)
--- NOTE | 2024-02-17 23:52 | PC.NURSE ---
nasal swab collected and sent to lab
[2024-02-17 23:55] LABS: Coronavirus 19, PCR Not Detected (NotDetected); Influenza A, PCR Not Detected (NotDetected); Influenza B, PCR Not Detected (NotDetected)
[2024-02-17 23:56] LABS: T4 (Thyroxine) 7.9 ug/dl (5.53-11.0)
[2024-02-17 23:58] LABS: Ammonia < 9 umol/L (9-30)
[2024-02-18 00:02] LABS: Bacteria,Urine 2+ /lpf; Bilirubin,Urine Negative (Negative); WBC,Urine TNTC #/hpf (0-3)
[2024-02-18 00:09] LABS: MANUAL DIFFERENTIAL MANUAL DIFFERENTIAL (MANUAL DIFF); Thyroid Stimulating Hormone 2.43 uIU/mL (0.465-4.68)
[2024-02-18] MEDS: PIPERACILLIN/TAZO 4.5 GM in 0.9 % SODIUM CHLORIDE 100 ML IV (00:19)
--- NOTE | 2024-02-18 00:35 | PC.NURSE ---
pc to MD's re transfer ED doctor on phone with Dr. Gtz
--- NOTE | 2024-02-18 00:36 | PC.NURSE ---
ultrasound IV access started by Dr. Camp
[2024-02-18 00:40] LABS: Lymphocytes % 11 % (10-50); Monocytes % 1 % (2-9); Neutrophils % 88 % (42-76); Total Cells Counted 100
[2024-02-18 00:42] LABS: RBC Morphology Normal
[2024-02-18] MEDS: NOREPINEPHRINE BITARTRATE/D5W 8 MG/250 ML PLAST..BAG 3.75 MG IV (00:59)
--- NOTE | 2024-02-18 01:24 | PC.NURSE ---
EMS notified of need to transport to [facility]
[2024-02-18 01:58] VITALS: BP 103/83; PULSE 89; RESP 11; TEMP 36.7; O2SAT 95
--- NOTE | 2024-02-19 10:49 | PC.NURSE ---
prelim urine culture discussed with , pt recieved zosyn in ER before transfer to [facility], waiting on final.
== END 2024-02-18 02:00 | disposition other institution (70) ==
PROVIDERS: Emergency Medicine; Emergency Provider Emergency Medicine; PCP Family Medicine
DX: A41.89 Other specified sepsis (principal); R65.21 Severe sepsis with septic shock; E87.21 Acute metabolic acidosis; E87.5 Hyperkalemia; N13.0 Hydronephrosis with ureteropelvic junction obstruction; N39.0 Urinary tract infection, site not specified; B96.29 Other Escherichia coli [E. coli] as the cause of diseases classified elsewhere; N17.9 Acute kidney failure, unspecified; R41.82 Altered mental status, unspecified; E03.9 Hypothyroidism, unspecified; I10 Essential (primary) hypertension; F03.90 Unspecified dementia, unspecified severity, without behavioral disturbance, psychotic disturbance, mood disturbance, and anxiety; I95.9 Hypotension, unspecified; N13.4 Hydroureter
CPT/HCPCS: 70450; 71250; 74176; 80053; 81001; 82140; 82803; 83690; 83880; 84436; 84443; 84484; 85007; 85025; 85027; 85610; 85730; 87040; 87086; 87088; 87186; 87636; 93005; 96361; 96365; 96366; 99291; J2543; J7120

== ENCOUNTER 2024-03-01 13:28 | Outpatient (POV) | payer MEDICARE, MEDICAID, SELFPAY ==
[2024-03-01 13:45] VITALS: BP 99/57; PULSE 82; RESP 16; BMI 27.4
--- NOTE | 2024-03-01 14:30 | EXP.PAIN.SOA ---
[facility] Disclaimer: The information contained in this section may have been updated after the patient was seen, as this information can be updated by other users. Medical History Breakthrough seizure Adjustment disorder Community acquired pneumonia Spinal stenosis, lumbar region with neurogenic claudication Lumbosacral radiculopathy due to degenerative joint disease of spine Degenerative joint disease (DJD) of lumbar spine Hypothyroidism (acquired) Hypertension Seizure Chronic low back pain Frequent UTI Heart murmur Anxiety Spinal stenosis Spinal stenosis in cervical region Former smoker Hypothyroid HTN (hypertension) Seizures Surgical History No pertinent past surgical history Family History Other Family history of cancer Family history of heart attack Social History Smoking Status: Former smoker tobacco type: cigarettes alcohol intake: never substance use type: denies use current occupational status: retired Travel in the last 8 weeks: None caregiver/support person: Yes (daughter) household members: family housing: house lives independently: No marital status: education level: middle school current occupational exposures/hazards: No caffeine: Yes special lion needs: No agree to transfusion: No PM Subjective & Objective Subjective Subjective:: Patient is a pleasant 83-year-old female who presents today for follow-up of left lumbar paraspinous trigger point injections on 02/08/2024. Patient states she had at least 70% improvement following these injections and felt like they are still working well however she is experiencing worsening pain on her right low back area. Patient does state from her last visit that she did end up having to be hospitalized due to gallbladder stones that were blocking and causing lowered kidney function. Patient states she is feeling a little bit better now following that and that she does have a stent in place and is scheduled to go back on the third to have this removed. Patient has tried and failed conservative therapy including continued at home exercising and stretching. Patient has officially started her physical therapy this week and is hoping this also helps with her overall low back and leg symptoms and weakness. Her Jacob has been reviewed and is appropriate. Review of Systems: General: No recent weight changes, no fever, no sleep disturbances Respiratory: No cough, no shortness of air, no recurring pulmonary infections Cardiovascular/peripheral vascular: No chest pain, no palpitations, no edema, no shortness of breath Gastrointestinal: No new onset incontinence, normal bowel movements reported Genitourinary: No new onset incontinence Musculoskeletal: Low back pain, right-sided Psychiatric: [Normal mood/affect] Neurological: [Denies weakness in extremities], [denies balance issues] Pain at rest (0-10 scale): 8 Objective Objective:: Physical Exam: General: Alert and oriented x3, no acute distress, pleasant and cooperative Lungs: Respirations even and unlabored, symmetrical chest expansion Eyes: PERRL Musculoskeletal: Flexion and extension of lumbar [spine] somewhat guarded secondary to pain, [antalgic gait noted] point tenderness along right lumbar paraspinous muscles Neurological: Speech clear, no gross sensory deficit Has patient had previous pain injection?: Yes Percent improvement in pain since last injection: 70% Conservative treatment options previously tried: Home exercise plan Length of treatment: Longer than 6 weeks Meds Home Medications and Allergies Home Medications ?Medication ?Instructions ?Recorded ?Confirmed ?Type celecoxib 100 mg capsule 100 mg PO DAILY 01/02/21 03/01/24 History duloxetine 60 mg capsule,delayed 60 mg PO DAILY 01/02/21 03/01/24 History release esomeprazole magnesium 40 mg 40 mg PO DAILY 01/02/21 03/01/24 History capsule,delayed release meclizine 25 mg tablet 25 mg PO BIDP PRN Motion Sickness 01/02/21 03/01/24 History mirabegron 50 mg tablet,extended 50 mg PO DAILY 01/02/21 03/01/24 History release 24 hr alendronate 70 mg tablet 70 mg PO MO 01/03/21 03/01/24 History cholecalciferol (vitamin D3) 125 125 mcg PO DAILY 01/03/21 03/01/24 History mcg (5,000 unit) capsule cyanocobalamin (vitamin B-12) 500 500 mcg sublingual DAILY 01/03/21 03/01/24 History mcg disintegrating tablet,sublingual docusate sodium 250 mg capsule 250 mg PO BIDP PRN Constipation 01/03/21 03/01/24 History oxycodone 10 mg tablet 10 mg PO BID PRN Pain 01/03/21 03/01/24 History gabapentin 300 mg capsule 600 mg PO BID 01/16/21 03/01/24 History levothyroxine 25 mcg tablet 25 mcg PO DAILY 01/16/21 03/01/24 History donepezil 5 mg tablet 5 mg PO HS 08/20/22 03/01/24 History lorazepam 1 mg tablet 1 mg PO BID Anxiety 08/20/22 03/01/24 History memantine 5 mg tablet 5 mg PO BID 08/20/22 03/01/24 History brivaracetam 75 mg tablet 75 mg PO BID seizure #60 tabs 08/21/22 03/01/24 Rx loratadine 10 mg tablet 10 mg PO DAILYP PRN Allergy 03/31/23 03/01/24 History Symptoms multivitamin with minerals-folic 1 tab PO DAILY Supplement 03/31/23 03/01/24 History acid 0.4 mg tablet (One-A-Day Women's 50 Plus) irbesartan 300 1 tab PO DAILY 01/11/24 03/01/24 History mg-hydrochlorothiazide 12.5 mg tablet plecanatide 3 mg tablet (Trulance) 3 mg PO DAILY 01/11/24 03/01/24 History ondansetron 4 mg disintegrating 4 mg PO Q8H PRN nausea and 01/14/24 03/01/24 Rx tablet vomiting #20 tabs tizanidine 4 mg tablet (Zanaflex) 4 mg PO TID #90 tabs 01/26/24 03/01/24 Rx New Prescriptions to Start Prescriptions: Allergies Allergy/AdvReac Type Severity Reaction Status Date / Time codeine Allergy Intermediate Rash Verified 01/04/24 13:02 Assessment and Plan *Assessment and plan (1) Myofascial pain on right side: Status: Acute Category: Medical Code(s): M79.18 - Myalgia, other site Plan Patient is experiencing worsening pain on her low back along the right side. Patient had limited range of motion of her lumbar spine along with point tenderness at her right lumbar paraspinous muscles. I did review over risk and benefits with the patient of the repeat trigger point injections and she would like to proceed forward with this plan of care. Patient did have 70% relief along the left side and is still helping. Patient has tried and failed conservative therapy including continued at home stretching exercise as well as ongoing physical therapy currently. We will schedule the patient for trigger point injections of her right lumbar paraspinous muscles. Patient has been instructed to contact the clinic with any concerns before the next appointment. Dr. Gonzalez has reviewed this note and agrees with this plan of care. This note was dictated using voice recognition software and make contain errors or omissions. All injections are used with Lidocaine or Bupivacaine and Depo Medrol.
== END 2024-03-01 23:59 | disposition home or self-care (01) ==
LOC: SC.PAIN 13:29
PROVIDERS: PCP Family Medicine; Visit Provider Nurse Practitioner Family
DX: M79.18 Myalgia, other site (principal); F17.210 Nicotine dependence, cigarettes, uncomplicated; Z79.899 Other long term (current) drug therapy
CPT/HCPCS: 99212; G0463

== ENCOUNTER 2024-03-28 12:34 | Outpatient (CLI) | payer MEDICARE, MEDICAID, SELFPAY ==
[2024-04-04 11:08] LABS: Miscellaneous Test SCANNED IMAGE
== END 2024-03-28 23:59 | disposition home or self-care (01) ==
LOC: LAB 12:35
PROVIDERS: PCP Family Medicine; Visit Provider Family Medicine
DX: Z02.9 Encounter for administrative examinations, unspecified (principal)

== ENCOUNTER 2024-04-03 13:21 | Outpatient (POV) | payer MEDICARE, MEDICAID, SELFPAY ==
--- NOTE | 2024-04-03 13:40 | A.OFFVIS_ITS ---
[facility] Disclaimer: The information contained in this section may have been updated after the patient was seen, as this information can be updated by other users. Medical History Breakthrough seizure Adjustment disorder Community acquired pneumonia Spinal stenosis, lumbar region with neurogenic claudication Lumbosacral radiculopathy due to degenerative joint disease of spine Degenerative joint disease (DJD) of lumbar spine Hypothyroidism (acquired) Hypertension Seizure Chronic low back pain Frequent UTI Heart murmur Anxiety Spinal stenosis Spinal stenosis in cervical region Former smoker Hypothyroid HTN (hypertension) Seizures Surgical History No pertinent past surgical history Family History Other Family history of cancer Family history of heart attack Social History Smoking Status: Former smoker tobacco type: cigarettes alcohol intake: never substance use type: denies use current occupational status: retired Travel in the last 8 weeks: None caregiver/support person: Yes (daughter) household members: family housing: house lives independently: No marital status: education level: middle school current occupational exposures/hazards: No caffeine: Yes special lion needs: No agree to transfusion: No PM Subjective & Objective Subjective Subjective:: Patient is a pleasant 83-year-old female who presents today for follow-up of left lumbar paraspinous trigger point injection on 03/14/2024. Today she rates her pain a 10 out of 10. Patient does state that she got about 50% improvement following these injections however she is now experiencing more pain in the center of her back. She describes it as a constant aching, throbbing sensation with numbness and tingling that does interfere with her ability perform activities of daily living such as cooking and cleaning. Patient does state that she frequently has to stop what she is doing and sit and take breaks due to the pain in her mid back that does radiate with numbness and tingling bilaterally and going towards her ribs and abdomen. Patient has tried and failed conservative therapy including continued at home stretching exercises for longer than 12 weeks. Her Jacob has been reviewed and is appropriate. Review of Systems: General: No recent weight changes, no fever, no sleep disturbances Respiratory: No cough, no shortness of air, no recurring pulmonary infections Cardiovascular/peripheral vascular: No chest pain, no palpitations, no edema, no shortness of breath Gastrointestinal: No new onset incontinence, normal bowel movements reported Genitourinary: No new onset incontinence Musculoskeletal: Mid back pain, bilateral muscle pain, rib pain, low back pain Psychiatric: [Normal mood/affect] Neurological: [Denies weakness in extremities], [denies balance issues] Pain at rest (0-10 scale): 10 Objective Objective:: Physical Exam: General: Alert and oriented x3, no acute distress, pleasant and cooperative Lungs: Respirations even and unlabored, symmetrical chest expansion Eyes: PERRL Musculoskeletal: Flexion and extension of thoracic [spine] somewhat guarded secondary to pain, [antalgic gait noted] Neurological: Speech clear, no gross sensory deficit FINDINGS: Multiplanar MR imaging of the thoracic spine was performed without contrast. On the sagittal T2-weighted images, disc degeneration is seen at multiple levels. There is a moderate L1 compression fracture noted without acute marrow edema. There are multilevel mild degenerative endplate changes present as well as multilevel disc bulges and osteophytes. The vertebral alignment is normal. The thoracic spinal cord has an unremarkable appearance without evidence of mass, edema or syrinx. On the axial images, mild disc bulges and small osteophytes are seen at multiple levels. No focal soft disc protrusion is identified. There is mild canal narrowing at the T12-L1 and L1-2 levels, with AP canal diameters measuring 8 mm. No paraspinous soft tissue abnormality is identified. IMPRESSION: Multilevel mild degenerative disc disease and spondylosis. Mild canal stenosis is present at the T12-L1 and L1-2 levels. Reviewed, Interpreted and Dictated by Juwan Lorenzo III, MD Transcribed by Hoda Pillai Authenticated and ERN Has patient had previous pain injection?: Yes Percent improvement in pain since last injection: More than 50% Conservative treatment options previously tried: Home exercise plan Length of treatment: Longer than 12 weeks Meds Home Medications and Allergies Home Medications ?Medication ?Instructions ?Recorded ?Confirmed ?Type celecoxib 100 mg capsule 100 mg PO DAILY 01/02/21 03/14/24 History duloxetine 60 mg capsule,delayed 60 mg PO DAILY 01/02/21 03/14/24 History release esomeprazole magnesium 40 mg 40 mg PO DAILY 01/02/21 03/14/24 History capsule,delayed release meclizine 25 mg tablet 25 mg PO BIDP PRN Motion Sickness 01/02/21 03/14/24 History mirabegron 50 mg tablet,extended 50 mg PO DAILY 01/02/21 03/14/24 History release 24 hr alendronate 70 mg tablet 70 mg PO MO 01/03/21 03/14/24 History cholecalciferol (vitamin D3) 125 125 mcg PO DAILY 01/03/21 03/14/24 History mcg (5,000 unit) capsule cyanocobalamin (vitamin B-12) 500 500 mcg sublingual DAILY 01/03/21 03/14/24 History mcg disintegrating tablet,sublingual docusate sodium 250 mg capsule 250 mg PO BIDP PRN Constipation 01/03/21 03/14/24 History oxycodone 10 mg tablet 10 mg PO BID PRN Pain 01/03/21 03/14/24 History gabapentin 300 mg capsule 600 mg PO BID 01/16/21 03/14/24 History levothyroxine 25 mcg tablet 25 mcg PO DAILY 01/16/21 03/14/24 History donepezil 5 mg tablet 5 mg PO HS 08/20/22 03/14/24 History lorazepam 1 mg tablet 1 mg PO BID Anxiety 08/20/22 03/14/24 History memantine 5 mg tablet 5 mg PO BID 08/20/22 03/14/24 History brivaracetam 75 mg tablet 75 mg PO BID seizure #60 tabs 08/21/22 03/14/24 Rx loratadine 10 mg tablet 10 mg PO DAILYP PRN Allergy 03/31/23 03/14/24 History Symptoms multivitamin with minerals-folic 1 tab PO DAILY Supplement 03/31/23 03/14/24 History acid 0.4 mg tablet (One-A-Day Women's 50 Plus) irbesartan 300 1 tab PO DAILY 01/11/24 03/14/24 History mg-hydrochlorothiazide 12.5 mg tablet plecanatide 3 mg tablet (Trulance) 3 mg PO DAILY 01/11/24 03/14/24 History ondansetron 4 mg disintegrating 4 mg PO Q8H PRN nausea and 01/14/24 03/14/24 Rx tablet vomiting #20 tabs tizanidine 4 mg tablet (Zanaflex) 4 mg PO TID #90 tabs 01/26/24 03/14/24 Rx New Prescriptions to Start Prescriptions: Allergies Allergy/AdvReac Type Severity Reaction Status Date / Time codeine Allergy Intermediate Rash Verified 03/14/24 10:37 Assessment and Plan *Assessment and plan (1) Degenerative disc disease, thoracic: Status: Acute Category: Medical Code(s): M51.34 - Other intervertebral disc degeneration, thoracic region (2) Thoracic radiculopathy: Status: Acute Category: Medical Code(s): M54.14 - Radiculopathy, thoracic region Plan Patient is experiencing worsening pain throughout her mid back with radiating numbness and tingling into and around her ribs towards her abdomen. Patient does have a chronic compression fracture of L1. I did discuss with the patient that she may benefit from a thoracic epidural steroid injection at the T12-L1 level. Risk and benefits were discussed with the patient and she would like to proceed forward with this plan of care. Patient is not on any blood thinners. Patient has tried and failed conservative therapy including continued at home stretching exercise for longer than 12 weeks. Patient will be scheduled for a T THELMA T12-L1 under fluoroscopy. Patient has been instructed to contact the clinic with any concerns before the next appointment. Dr. Gonzalez has reviewed this note and agrees with this plan of care. This note was dictated using voice recognition software and make contain errors or omissions. All injections are used with Lidocaine or Bupivacaine and Depo Medrol.
[2024-04-03 14:16] VITALS: BP 121/67; PULSE 80; RESP 16; O2SAT 95; BMI 28.3
== END 2024-04-03 23:59 | disposition home or self-care (01) ==
LOC: SC.PAIN 13:22
PROVIDERS: PCP Family Medicine; Visit Provider Nurse Practitioner Family
DX: M51.14 Intervertebral disc disorders with radiculopathy, thoracic region (principal); Z87.891 Personal history of nicotine dependence; Z73.89 Other problems related to life management difficulty; Z79.899 Other long term (current) drug therapy
CPT/HCPCS: 99212; G0463

== ENCOUNTER 2024-04-25 13:06 | Day surgery (SDC) | payer MEDICARE, MEDICAID, SELFPAY ==
[2024-04-25 13:30] VITALS: BP 114/61; PULSE 78; RESP 16; O2SAT 94; BMI 28.3
[2024-04-25] MEDS: methylPREDNISolone ACETATE 80MG/ML VIAL 80 MG (13:37)
--- NOTE | 2024-04-25 13:41 | EXP.PAIN.PRO ---
Procedure Date: 04/25/24 Time: 13:30 Anesthesiologist:: Jim Ventura CRNA Complications:: None Pre-procedure Diagnosis:: Degenerative disc thoracic spine. Degenerative disc lumbar spine. Thoracic radiculopathy. Lumbar radiculopathy. Lumbar spondylosis. Multilevel lumbar facet arthropathy. Post-procedure Diagnosis:: Same. Indications for Procedure:: Patient is a very pleasant 83-year-old female comes our clinic today for T12-L1 epidural steroid injection. Patient describes thoracolumbar pain is constant, dull, aching. She reports radicular symptoms around bilateral sides. She rates pain 7/10. Procedure Details:: Procedure:Thoracic epidural steroid injection under fluoroscopy Informed consent was obtained and the risks and benefits of the procedure were explained to the patient. The patient was taken to the procedure room and noninvasive monitors placed, including noninvasive blood pressure cuff and pulse oximeter. The back was viewed using C-Arm fluoroscopy and prepped using Betadine as a cleansing solution and the T12-L1 interspace was palpated. Skin and subcutaneous tissues were anesthetized using lidocaine 1.5% and a 25-gauge needle. After this, an 18-gauge Touhy epidural needle was placed into the T12-L1 interspace and advanced using fluoroscopic guidance and loss of resistance to air until the epidural space was encountered. After confirmation of needle placement in the epidural space, with dye, a solution containing lidocaine 1.5%, 4 mL and Depo-Medrol 80 mg were incrementally injected into the thoracic epidural space. The patient tolerated the procedure well with no complications. The patient was observed in the Pain Clinic and then discharged home neurologically intact. Plan and Disposition:: Patient was discharged without incident.
[2024-04-25 13:56] VITALS: BP 122/61; PULSE 77; RESP 16; O2SAT 94
== END 2024-04-25 13:56 | disposition home or self-care (01) ==
PROVIDERS: PCP Family Medicine; Visit Provider Nurse Anesthetist, Certified Registered
DX: M51.14 Intervertebral disc disorders with radiculopathy, thoracic region (principal); M51.16 Intervertebral disc disorders with radiculopathy, lumbar region; M47.26 Other spondylosis with radiculopathy, lumbar region
CPT/HCPCS: 62321; J1010

== ENCOUNTER 2024-05-11 10:24 | Outpatient (POV) | payer MEDICARE, MEDICAID, SELFPAY ==
[2024-05-11 10:41] VITALS: BP 148/70; PULSE 74; RESP 14; O2SAT 95; BMI 28.3
--- NOTE | 2024-05-11 10:45 | EXP.PAIN.SOA ---
[facility] Disclaimer: The information contained in this section may have been updated after the patient was seen, as this information can be updated by other users. Medical History Breakthrough seizure Adjustment disorder Community acquired pneumonia Spinal stenosis, lumbar region with neurogenic claudication Lumbosacral radiculopathy due to degenerative joint disease of spine Degenerative joint disease (DJD) of lumbar spine Hypothyroidism (acquired) Hypertension Seizure Chronic low back pain Frequent UTI Heart murmur Anxiety Spinal stenosis Spinal stenosis in cervical region Former smoker Hypothyroid HTN (hypertension) Seizures Surgical History No pertinent past surgical history Family History Other Family history of cancer Family history of heart attack Social History Smoking Status: Former smoker tobacco type: cigarettes alcohol intake: never substance use type: denies use current occupational status: other Travel in the last 8 weeks: None caregiver/support person: Yes (daughter) household members: family housing: house lives independently: No marital status: education level: middle school current occupational exposures/hazards: No caffeine: Yes special lion needs: No agree to transfusion: No PM Subjective & Objective Subjective Subjective:: Patient is a 83-year-old female who presents today for follow-up of her thoracic epidural steroid injection T12-L1 on 04/25/2024. Today she rates her pain an 8 out of 10 however states that pain is related to her right shoulder. She does state that this injection helped about 60 to 70%. Patient states that she feels like it is still helping and her back does feel much better. Patient does state the right shoulder is an aching, throbbing sensation that has been going on for years and progressively worsening. Patient has had updated imaging that does show significant arthritis and bone spurs. Patient denies any prior surgery on this joint. She denies any issues with her left shoulder. Her Jacob has been reviewed and is appropriate. Review of Systems: General: No recent weight changes, no fever, no sleep disturbances Respiratory: No cough, no shortness of air, no recurring pulmonary infections Cardiovascular/peripheral vascular: No chest pain, no palpitations, no edema, no shortness of breath Gastrointestinal: No new onset incontinence, normal bowel movements reported Genitourinary: No new onset incontinence Musculoskeletal: Right shoulder pain/arthritis Psychiatric: [Normal mood/affect] Neurological: [Denies weakness in extremities], [denies balance issues] Pain at rest (0-10 scale): 8 Objective Objective:: Physical Exam: General: Alert and oriented x3, no acute distress, pleasant and cooperative Lungs: Respirations even and unlabored, symmetrical chest expansion Eyes: PERRL Musculoskeletal: Flexion and extension of right shoulder somewhat guarded secondary to pain, [antalgic gait noted] Neurological: Speech clear, no gross sensory deficit FINDINGS: Bones/joints: There is an atypical alignment of the acromion and clavicle suggesting some element of underlying acromioclavicular pathology, consider CT or MRI for further evaluation as warranted. There is some calcium deposition over the rotator cuff insertions which is suspicious for calcific tendinopathy . Lungs: Limited visualization of the hemithorax demonstrates no acute pathology. Soft tissues: Normal. IMPRESSION: 1. There is an atypical alignment of the acromion and clavicle suggesting some element of underlying acromioclavicular pathology, consider CT or MRI for further evaluation as warranted. 2. 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 Has patient had previous pain injection?: Yes Percent improvement in pain since last injection: 60 to 70% Conservative treatment options previously tried: Home exercise plan Length of treatment: Longer than 12 weeks Meds Home Medications and Allergies Home Medications ?Medication ?Instructions ?Recorded ?Confirmed ?Type celecoxib 100 mg capsule 100 mg PO DAILY 01/02/21 05/11/24 History duloxetine 60 mg capsule,delayed 60 mg PO DAILY 01/02/21 05/11/24 History release esomeprazole magnesium 40 mg 40 mg PO DAILY 01/02/21 05/11/24 History capsule,delayed release meclizine 25 mg tablet 25 mg PO BIDP PRN Motion Sickness 01/02/21 05/11/24 History mirabegron 50 mg tablet,extended 50 mg PO DAILY 01/02/21 05/11/24 History release 24 hr alendronate 70 mg tablet 70 mg PO MO 01/03/21 05/11/24 History cholecalciferol (vitamin D3) 125 125 mcg PO DAILY 01/03/21 05/11/24 History mcg (5,000 unit) capsule cyanocobalamin (vitamin B-12) 500 500 mcg sublingual DAILY 01/03/21 05/11/24 History mcg disintegrating tablet,sublingual docusate sodium 250 mg capsule 250 mg PO BIDP PRN Constipation 01/03/21 05/11/24 History oxycodone 10 mg tablet 10 mg PO BID PRN Pain 01/03/21 05/11/24 History gabapentin 300 mg capsule 600 mg PO BID 01/16/21 05/11/24 History levothyroxine 25 mcg tablet 25 mcg PO DAILY 01/16/21 05/11/24 History donepezil 5 mg tablet 5 mg PO HS 08/20/22 05/11/24 History lorazepam 1 mg tablet 1 mg PO BID Anxiety 08/20/22 05/11/24 History memantine 5 mg tablet 5 mg PO BID 08/20/22 05/11/24 History brivaracetam 75 mg tablet 75 mg PO BID seizure #60 tabs 08/21/22 05/11/24 Rx loratadine 10 mg tablet 10 mg PO DAILYP PRN Allergy 03/31/23 05/11/24 History Symptoms multivitamin with minerals-folic 1 tab PO DAILY Supplement 03/31/23 05/11/24 History acid 0.4 mg tablet (One-A-Day Women's 50 Plus) irbesartan 300 1 tab PO DAILY 01/11/24 05/11/24 History mg-hydrochlorothiazide 12.5 mg tablet plecanatide 3 mg tablet (Trulance) 3 mg PO DAILY 01/11/24 05/11/24 History ondansetron 4 mg disintegrating 4 mg PO Q8H PRN nausea and 01/14/24 05/11/24 Rx tablet vomiting #20 tabs tizanidine 4 mg tablet (Zanaflex) 4 mg PO TID #90 tabs 01/26/24 05/11/24 Rx New Prescriptions to Start Prescriptions: Allergies Allergy/AdvReac Type Severity Reaction Status Date / Time codeine Allergy Intermediate Rash Verified 03/14/24 10:37 Assessment and Plan *Assessment and plan (1) Right shoulder pain: Status: Acute Category: Medical Code(s): M25.511 - Pain in right shoulder Plan Patient is experiencing significant pain in her right shoulder with limited range of motion and pain. I did discuss with the patient that I do believe she would benefit from a right shoulder intra-articular injection. Risk and benefits were discussed with the patient and she would like to proceed forward with this plan of care. Patient has tried and failed conservative therapy including continued at home stretching exercise for longer than 12 weeks. Patient will be scheduled for right shoulder intra-articular injection. This will be done without fluoroscopy or ultrasound guidance. Patient has been instructed to contact the clinic with any concerns before the next appointment. Dr. Gonzalez has reviewed this note and agrees with this plan of care. This note was dictated using voice recognition software and make contain errors or omissions. All injections are used with Lidocaine or Bupivacaine and Depo Medrol.
== END 2024-05-11 23:59 | disposition home or self-care (01) ==
LOC: SC.PAIN 10:25
PROVIDERS: PCP Family Medicine; Visit Provider Nurse Practitioner Family
DX: M25.511 Pain in right shoulder (principal); Z87.891 Personal history of nicotine dependence
CPT/HCPCS: 99212; G0463

== ENCOUNTER 2024-06-13 13:02 | Day surgery (SDC) | payer MEDICARE, MEDICAID, SELFPAY ==
[2024-06-13 13:10] VITALS: BP 141/49; PULSE 96; RESP 16; TEMP 36.6; O2SAT 93; BMI 28.4
[2024-06-13] MEDS: LIDOCAINE 1% 5ML PF VIAL 5 ML (13:19)
[2024-06-13] MEDS: methylPREDNISolone ACETATE 80MG/ML VIAL 80 MG (13:19)
[2024-06-13] MEDS: BUPIVACAINE 0.25% 10ML INJ 25 MG IJ (13:19)
[2024-06-13 13:27] VITALS: BP 152/68; PULSE 87; RESP 16; TEMP 36.4; O2SAT 93
--- NOTE | 2024-06-13 13:31 | EXP.PAIN.PRO ---
Procedure Date: 06/13/24 Time: 13:20 Anesthesiologist:: Jim Ventura CRNA Complications:: None Pre-procedure Diagnosis:: DJD right shoulder. Chronic right shoulder pain. Post-procedure Diagnosis:: Same. Indications for Procedure:: Patient is a very pleasant 83-year-old female who comes our clinic today for right intra-articular shoulder injection of cortisone and local anesthetic. She describes right shoulder pain as constant, dull, aching. She has 5/5 strength in the right arm. However, she has limited range of motion secondary to right shoulder pain. She rates her pain 7/10. Procedure Details:: Procedure Details: Right shoulder intra-articular injection Informed consent was obtained risk and benefits of the procedure were explained to the patient. Patient was taken to the procedure room. The right shoulder was prepped using ChloraPrep. A 25-gauge needle was used posteriorly to inject 10 mL bupivacaine 0.25% and Depo-Medrol 40 mg. Patient tolerated procedure well with no complications. Plan and Disposition:: Patient was discharged without incident.
== END 2024-06-13 13:27 | disposition home or self-care (01) ==
LOC: SC.PAINP 13:03
PROVIDERS: PCP Family Medicine; Visit Provider Nurse Anesthetist, Certified Registered
DX: M19.011 Primary osteoarthritis, right shoulder (principal); M25.511 Pain in right shoulder; G89.29 Other chronic pain
CPT/HCPCS: 20610; J1010

== ENCOUNTER 2024-06-26 09:49 | Emergency (ER) | payer MEDICARE, MEDICAID, SELFPAY ==
[2024-06-26] VITALS (18 sets, daily range): BP systolic 78–240; BP diastolic 43–128; PULSE 77–117; RESP 14–22; TEMP 36.8; O2SAT 93–100; BMI 24.3
--- NOTE | 2024-06-26 09:54 | ECG_ITS ---
APPROVED REPORT Exam: Resting ECG HR:91 bpm ECG Measurements Heart Rate 91 AXES QRSd 93 QRS -13 QT 337 T 117 QTc 385 Conclusion Sinus rhythm MINIMAL ST DEPRESSION [0.025+ mV ST DEPRESSION] ABNORMAL QRS-T ANGLE [QRS-T AXIS DIFFERENCE > 60] ABNORMAL ECG No STEMI Electronically signed by : MENDY LEE, 06/26/2024 16:04:33
--- NOTE | 2024-06-26 10:07 | ED_ITS ---
Discharge Plan Disposition Patient Disposition: Home, Self-Care Condition: Good Prescriptions Prescriptions: New diazepam 5 mg/spray (0.1 mL) spray,non-aerosol 5 mg intranasal ONCE PRN (Reason: seizure) Qty: 2 0RF No Action gabapentin 300 mg capsule 600 mg PO BID Patient Comments: TAKE TWO CAPSULES BY MOUTH TWICE DAILY MAY CAUSE DROWSINESS levothyroxine 25 mcg tablet 25 mcg PO DAILY mirabegron 50 MG tablet extended release 24 hr 50 mg PO DAILY celecoxib 100 MG capsule 100 mg PO DAILY meclizine 25 MG tablet 25 mg PO BIDP PRN (Reason: Motion Sickness) esomeprazole magnesium 40 MG capsule,delayed release(DR/EC) 40 mg PO DAILY duloxetine 60 MG capsule,delayed release(DR/EC) 60 mg PO DAILY alendronate 70 MG tablet 70 mg PO MO docusate sodium 250 MG capsule 250 mg PO BIDP PRN (Reason: Constipation) oxycodone 10 MG tablet 10 mg PO BID PRN (Reason: Pain) cholecalciferol (vitamin D3) 125 MCG capsule 125 mcg PO DAILY cyanocobalamin (vitamin B-12) 500 MCG tablet,disintegrating 500 mcg sublingual DAILY donepezil 5 mg tablet 5 mg PO HS Patient Comments: TAKE ONE TABLET BY MOUTH EVERY DAY AT BEDTIME lorazepam 1 mg tablet 1 mg PO BID Patient Comments: TAKE ONE TABLET BY MOUTH TWICE DAILY MAY CAUSE DROWSINESS memantine 5 mg tablet 5 mg PO BID Patient Comments: TAKE ONE TABLET BY MOUTH TWICE DAILY brivaracetam 75 mg Tablet 75 mg PO BID Qty: 60 0RF tizanidine [Zanaflex] 4 mg tablet 4 mg PO TID Qty: 90 0RF irbesartan-hydrochlorothiazide 300-12.5 mg tablet 1 tab PO DAILY Patient Comments: TAKE ONE TABLET BY MOUTH EVERY DAY Trulance 3 mg tablet 3 mg PO DAILY Patient Comments: TAKE ONE TABLET BY MOUTH EVERY DAY ondansetron 4 mg tablet,disintegrating 4 mg PO Q8H PRN (Reason: nausea and vomiting) Qty: 20 0RF loratadine 10 mg Tablet 10 mg PO DAILYP PRN (Reason: Allergy Symptoms) multivit with min-folic acid [One-A-Day Women's 50 Plus] 0.4 mg Tablet 1 tab PO DAILY Referrals Follow up/Referrals: Provider,Referral, MD [Referring] - See instructions Activity Restrictions/Add. Instructions Additional Instructions/Restrictions: Maura was evaluated in the ER and is appropriate for discharge at this time. Give the Brivaracetam (briviact) twice daily. If she has a seizure, give the newly prescribed diazepam nasally. Then call EMS. Call Dr. Campos's office today and make an appointment for her to be seen in the next few days. Return to the ER with new, worsening, or otherwise concerning symptoms. Clinical Impressions Clinical Impression: Breakthrough seizure Instructions Patient Instructions: DI for Seizure Disorder -- Adult Print Language Print Language: Wolof Discharge ED Provider: Clementine Josue General Adult HPI General Chief complaint: Seizure Stated complaint: seizures Time Seen by Provider: 06/26/24 10:05 History of Present Illness HPI narrative: 83-year-old female presents to the ER for concerns of seizure-like activity. Patient does have a history of epilepsy reportedly and is on Keppra according to EMS who obtained history from family. Reportedly patient had gotten up and started to get ready for the day, she went back to bed briefly and daughter watched her have what appeared to be a focal or absence seizure where she stared off and was tense. She relaxed and had a postictal period of at least 10 minutes before she returned to baseline. Related Data Home Medications ?Medication ?Instructions ?Recorded ?Confirmed celecoxib 100 mg capsule 100 mg PO DAILY 01/02/21 06/13/24 duloxetine 60 mg capsule,delayed 60 mg PO DAILY 01/02/21 06/13/24 release esomeprazole magnesium 40 mg 40 mg PO DAILY 01/02/21 06/13/24 capsule,delayed release meclizine 25 mg tablet 25 mg PO BIDP PRN Motion Sickness 01/02/21 06/13/24 mirabegron 50 mg tablet,extended 50 mg PO DAILY 01/02/21 06/13/24 release 24 hr alendronate 70 mg tablet 70 mg PO MO 01/03/21 06/13/24 cholecalciferol (vitamin D3) 125 125 mcg PO DAILY 01/03/21 06/13/24 mcg (5,000 unit) capsule cyanocobalamin (vitamin B-12) 500 500 mcg sublingual DAILY 01/03/21 06/13/24 mcg disintegrating tablet,sublingual docusate sodium 250 mg capsule 250 mg PO BIDP PRN Constipation 01/03/21 06/13/24 oxycodone 10 mg tablet 10 mg PO BID PRN Pain 01/03/21 06/13/24 gabapentin 300 mg capsule 600 mg PO BID 01/16/21 06/13/24 levothyroxine 25 mcg tablet 25 mcg PO DAILY 01/16/21 06/13/24 donepezil 5 mg tablet 5 mg PO HS 08/20/22 06/13/24 lorazepam 1 mg tablet 1 mg PO BID Anxiety 08/20/22 06/13/24 memantine 5 mg tablet 5 mg PO BID 08/20/22 06/13/24 loratadine 10 mg tablet 10 mg PO DAILYP PRN Allergy 03/31/23 06/13/24 Symptoms multivitamin with minerals-folic 1 tab PO DAILY Supplement 03/31/23 06/13/24 acid 0.4 mg tablet (One-A-Day Women's 50 Plus) irbesartan 300 1 tab PO DAILY 01/11/24 06/13/24 mg-hydrochlorothiazide 12.5 mg tablet plecanatide 3 mg tablet (Trulance) 3 mg PO DAILY 01/11/24 06/13/24 Previous Rx's ?Medication ?Instructions ?Recorded brivaracetam 75 mg tablet 75 mg PO BID seizure #60 tabs 08/21/22 ondansetron 4 mg disintegrating 4 mg PO Q8H PRN nausea and 01/14/24 tablet vomiting #20 tabs tizanidine 4 mg tablet (Zanaflex) 4 mg PO TID #90 tabs 01/26/24 diazepam 5 mg/spray (0.1 mL) nasal 5 mg (0.1 mL) intranasal ONCE PRN 06/26/24 spray seizure #2 sprays Allergies Allergy/AdvReac Type Severity Reaction Status Date / Time codeine Allergy Intermediate Rash Verified 03/14/24 10:37 [facility] Disclaimer: The information contained in this section may have been updated after the patient was seen, as this information can be updated by other users. Medical History Breakthrough seizure Adjustment disorder Community acquired pneumonia Spinal stenosis, lumbar region with neurogenic claudication Lumbosacral radiculopathy due to degenerative joint disease of spine Degenerative joint disease (DJD) of lumbar spine Hypothyroidism (acquired) Hypertension Seizure Chronic low back pain Frequent UTI Heart murmur Anxiety Spinal stenosis Spinal stenosis in cervical region Former smoker Hypothyroid HTN (hypertension) Seizures Surgical History No pertinent past surgical history Family History Other Family history of cancer Family history of heart attack Social History Smoking Status: Never smoker alcohol intake: never substance use type: denies use current occupational status: other Travel in the last 8 weeks: None caregiver/support person: Yes (daughter) household members: family housing: house lives independently: No marital status: education level: middle school current occupational exposures/hazards: No caffeine: Yes special lion needs: No agree to transfusion: No Have you lived/traveled outside [place] in past 30 days?: No Contact w/someone who lives/traveled outside US past 30 days?: No Exposure to someone with infectious disease in past 14 days?: No Do you have a fever (greater than 100.4 F or 38 C)?: No Have you tested positive for COVID-19: No Exposed to someone with COVID-19 in past 14 days?: No Do you have a sore throat?: No Do you have a cough?: No Do you have any weakness?: No Do you have any diarrhea?: No Are you experiencing any unusual bleeding?: No Do you have any muscle aches/pain?: No Do you have any abdominal pain?: No Are you experiencing loss of taste or smell?: No Other Medical History Have you received the Flu Vaccine for this season: No Have you received the Pneumonia Vaccine: No ROS Obtained: Yes Systems reviewed as appropriate & no additional complaints except as documented Per HPI Physical Exam General General appearance: alert and in no apparent distress Head Head exam: atraumatic and normocephalic Eye Eye exam: Present PERRL and EOMI ENT ENT exam: Present mucous membranes moist Neck Neck exam: Present normal inspection and full ROM Chest Chest inspection: Present symmetric chest wall rise Respiratory Respiratory exam: Absent respiratory distress or stridor Cardiovascular Cardiovascular exam: Present regular rate and normal rhythm Abdominal Exam Abdominal exam: Present soft; Absent distention or tenderness Extremities Exam Extremities exam: Present full ROM Neurological Exam Neurological exam: Present alert and oriented X3; Absent motor sensory deficit Psychiatric Psychiatric exam: Present normal affect and normal mood Skin Skin exam: Present warm and dry Medical Decision Making Medical Records Medical records reviewed: Yes I reviewed the patient's medical records. Screening: Per USPSTF and CDC recommendations, given the prevalence of disease in our region, it is our hospital?s policy to screen for HIV and viral Hepatitis for all patients aged 18 and over and those with ongoing risk factors. MR Comment: Patient was admitted in January with UTI. She had down trending troponin during that admission. She was discharged with close follow-up with Dr. Beth James Inquiry Pt receiving controlled substance: No Vital Signs: 06/26/24 09:49 06/26/24 09:50 06/26/24 10:01 Temperature 98.3 F Temperature Source Oral Pulse Rate 94 H 87 Pulse Rate [Left Radial] 87 Respiratory Rate 16 15 Blood Pressure 100/80 L 142/71 H Blood Pressure [Right Arm] 100/80 L Blood Pressure Mean Blood Pressure Mean [Right Arm] 86 Blood Pressure Source [Right Arm] Automatic Cuff Blood Pressure Position [Right Arm] Sitting 02 Sat by Pulse Oximetry 94 L 94 L 94 L Oxygen Delivery Method Room Air Room Air Room Air 06/26/24 10:31 06/26/24 11:00 06/26/24 11:30 Temperature Temperature Source Pulse Rate 86 86 83 Pulse Rate [Left Radial] Respiratory Rate 16 16 15 Blood Pressure 118/75 164/80 H 142/79 H Blood Pressure [Right Arm] Blood Pressure Mean Blood Pressure Mean [Right Arm] Blood Pressure Source [Right Arm] Blood Pressure Position [Right Arm] 02 Sat by Pulse Oximetry 93 L 94 L 97 Oxygen Delivery Method Room Air Room Air Room Air 06/26/24 12:00 06/26/24 12:36 06/26/24 12:37 Temperature Temperature Source Pulse Rate 87 117 H 113 H Pulse Rate [Left Radial] Respiratory Rate 14 22 Blood Pressure 159/69 H 240/128 H 210/116 H Blood Pressure [Right Arm] Blood Pressure Mean Blood Pressure Mean [Right Arm] Blood Pressure Source [Right Arm] Blood Pressure Position [Right Arm] 02 Sat by Pulse Oximetry 97 98 100 Oxygen Delivery Method Room Air Room Air Room Air 06/26/24 13:01 06/26/24 13:31 06/26/24 13:53 Temperature Temperature Source Pulse Rate 96 H 84 89 Pulse Rate [Left Radial] Respiratory Rate 21 20 22 Blood Pressure 133/69 84/50 L 104/66 L Blood Pressure [Right Arm] Blood Pressure Mean Blood Pressure Mean [Right Arm] Blood Pressure Source [Right Arm] Blood Pressure Position [Right Arm] 02 Sat by Pulse Oximetry 98 97 98 Oxygen Delivery Method Room Air Room Air Room Air 06/26/24 14:00 06/26/24 14:15 06/26/24 14:30 Temperature Temperature Source Pulse Rate 83 79 79 Pulse Rate [Left Radial] Respiratory Rate 21 19 20 Blood Pressure 78/48 L 91/43 L 81/44 L Blood Pressure [Right Arm] Blood Pressure Mean Blood Pressure Mean [Right Arm] Blood Pressure Source [Right Arm] Blood Pressure Position [Right Arm] 02 Sat by Pulse Oximetry 97 97 97 Oxygen Delivery Method Room Air Room Air Room Air 06/26/24 15:01 06/26/24 15:31 Temperature Temperature Source Pulse Rate 84 77 Pulse Rate [Left Radial] Respiratory Rate 18 19 Blood Pressure 105/51 L 122/74 Blood Pressure [Right Arm] Blood Pressure Mean 60 Blood Pressure Mean [Right Arm] Blood Pressure Source [Right Arm] Blood Pressure Position [Right Arm] 02 Sat by Pulse Oximetry 99 98 Oxygen Delivery Method Room Air Lab Data Lab Results 06/26/24 09:57: WBC 7.6, RBC 3.93 L, Hgb 13.1, Hct 40.2, MCV 102.3 H, MCH 33.3 H , MCHC 32.6, RDW 11.9, Plt Count 194, MPV 12.1 H, Neut % (Auto) 56.0, Lymph % (Auto) 32.2, [place] % (Auto) 7.1, Eos % (Auto) 3.3, Baso % (Auto) 0.5, Neut # (Auto) 4.3, Lymph # (Auto) 2.5, [place] # (Auto) 0.5, Eos # (Auto) 0.3, Baso # (Auto) 0.0, Sodium 138, Potassium 4.5, Chloride 106, Carbon Dioxide 23, Anion Gap 13.5, BUN 26 H, Creatinine 1.40 H, Estimated GFR 36 L, Est GFR ( Amer) 43 L, Glucose 166 H, Calcium 9.4, Total Bilirubin 0.5, AST 34, ALT 29, Alkaline Phosphatase 99, Total Protein 7.1, Albumin 4.0, Globulin 3.1, Albumin/Globulin Ratio 1.3, Plasma/Serum Alcohol < 10 06/26/24 11:50: Urine Color Yellow, Urine Appearance Clear, Urine pH 7.0, Ur Specific [place] 1.015, Urine Protein Negative, Urine Glucose (UA) Negative, Urine Ketones Negative, Urine Blood Negative, Urine Nitrate Negative, Urine Bilirubin Negative, Urine Urobilinogen 0.2, Ur Leukocyte Esterase 1+ A, Urine RBC None, Urine WBC Occasional, Ur Squamous Epith Cells Occasional, Urine Bacteria Trace 06/26/24 09:57 06/26/24 09:57 Orders (Tests/Meds): ED MEDICATIONS Generic Name Dose Route Start Last Admin Trade Name Freq PRN Reason Stop Dose Admin Sodium Chloride 10 ml 06/26/24 14:03 Sodium Chloride 0.9% 10ml Vial IV 07/26/24 14:02 NEEDED PRN to Dilute Lorazepam inj Discontinued Medications Generic Name Dose Route Start Last Admin Trade Name Freq PRN Reason Stop Dose Admin Levetiracetam 1,000 mg/ Sodium 110 mls @ 220 mls/hr 06/26/24 10:05 06/26/24 10:18 Chloride IV 06/26/24 10:06 220 mls/hr ONCE ONE Administration Lorazepam 2 mg 06/26/24 12:40 06/26/24 12:45 Lorazepam 2mg/Ml Vial IV 06/26/24 12:41 2 mg ONCE ONE Administration ORDERS Category Date Time Status CBC w/Auto Diff [Complete Blood Count Auto Diff] Stat Lab 06/26/24 09:57 Completed CMP [Comprehensive Metabolic Panel] Stat Lab 06/26/24 09:57 Completed Ethanol [Ethyl Alcohol] Stat Lab 06/26/24 09:57 Completed Urinalysis and Microscopic Stat Lab 06/26/24 11:50 Completed Urine Culture Stat Micro 06/26/24 11:50 Received Medical Decision Narrative: In summary, this 83-year-old female presents to the emergency department today with seizure. On initial evaluation patient is hemodynamically stable, afebrile, GCS 15 on arrival, she appears to have recovered from her postictal state that was described by EMS, no neurologic deficits, resting comfortably. Differential diagnosis includes but is not limited to breakthrough seizure, electrolyte abnormality, kidney dysfunction, urinary tract infection, considered intoxication my very low suspicion for this. Based on these concerns, I ordered serum labs, urine studies. ECG personally interpreted demonstrates normal sinus rhythm, rate 91, normal axis, normal CA and QTc, no STEMI. Patient received 1 g Keppra initially for treatment. Labs personally reviewed demonstrate no leukocytosis or anemia, normal platelets, CMP with kidney dysfunction dramatically improved from her labs in February, UA negative for findings of infection, occasional squamous cells with leukocyte esterase but no nitrites and only trace bacteria. Will not treat for UTI at this time. EtOH. No imaging was indicated. Patient's labs had resulted and her workup was reassuring. She had maintained her baseline mental status. I believe she is likely appropriate for discharge. I called and discussed with Dr. Campos patient's symptoms, workup, and most recent medication changes. He reviewed his records and recommended increasing her seizure medication back to 75mg BID. As I was on the phone with Dr. Campos, patient had a seizure. She had generalized tonic-clonic activity. Family was at bedside and reported this is exactly what her seizure this morning looked like. She received 2 mg IV Ativan which aborted the seizure. She is currently on nasal cannula and postictal but recovering. Total length of seizure was less than 2 minutes. With his active seizure activity, Dr. Campos recommended observation in the ER to recover from the Ativan with which I agree, he recommended prescription for rescue medication and increasing her antiepileptic to twice daily. Patient was placed into ED observation at 1245 for monitoring of mental status and metabolization of the benzodiazepines which she received for seizure . Patient was frequently reassessed and had improving neurologic status. She returned to her baseline. She continued to be monitored in the ER for 3 hours after her seizure activity. She completely recovered back to baseline. I again called Dr. Campos and he still agrees with the plan for increased outpatient antiepileptic medication and rescue medication. I prescribed nasal diazepam. I instructed family on use of this. I also gave them instructions on home medication administration, follow-up instructions, and strict return precautions for the ER. They indicated understanding and the patient was discharged in stable condition Total time in ED observation: 3 hours Critical Care Critical Care Time Critical Care Time: No
[2024-06-26] MEDS: levETIRAcetam 1,000 MG in 0.9 % SODIUM CHLORIDE 100 ML 220 MG IV (10:18)
[2024-06-26 10:27] LABS: Hematocrit 40.2 % (37.0-47.0); Hemoglobin 13.1 g/dL (12.2-16.2); Mean Corpuscular HGB Conc 32.6 g/dL (31.8-35.4); Mean Corpuscular Hemoglobin 33.3 pg (27.0-31.2); Mean Corpuscular Volume 102.3 fl (81-99); Mean Platelet Volume 12.1 fl (7.4-10.4); Platelet Count 194 K/mm3 (142-424); Red Blood Count 3.93 M/mm3 (4.20-5.40); Red Cell Distribution Width 11.9 % (11.5-17.5); White Blood Count 7.6 K/mm3 (4.8-10.8)
[2024-06-26 10:28] LABS: Basophils % 0.5 % (0.1-2.0); Eosinophils # 0.3 K/mm3 (0.0-0.4); Eosinophils % 3.3 % (0.1-12.0); Lymphocytes # 2.5 K/mm3 (0.7-4.5); Lymphocytes % 32.2 % (10-50); Monocytes # 0.5 K/mm3 (0.1-1.0); Monocytes % 7.1 % (1.7-9.3); Neutrophils # 4.3 K/mm3 (1.8-7.8)
[2024-06-26 11:01] LABS: Chloride 106 mmol/L (98-107)
[2024-06-26 11:02] LABS: Potassium 4.5 mmoL/L (3.5-5.1); Sodium 138 mmol/L (136-145)
[2024-06-26 11:05] LABS: Alanine Aminotransferase 29 U/L (12-78); Albumin/Globulin Ratio 1.3 (1.1-1.8); Alkaline Phosphatase 99 U/L (38-126); Anion Gap 13.5 mEq/L (5-15); Aspartate Amino Transferase 34 U/L (14-36); Bilirubin,Total 0.5 mg/dl (0.2-1.3); Blood Urea Nitrogen 26 mg/dl (7-17); Calcium 9.4 mg/dl (8.4-10.2); Carbon Dioxide 23 mmol/L (22.0-30.0); Estimated Glomerular Filt Rate 36 ml/min (>60); GFR (African American) 43 ML/MIN (>60); Globulin 3.1 g/dL (1.3-3.2); Glucose 166 mg/dl (74-100); Total Protein,Serum 7.1 g/dl (6.3-8.2)
[2024-06-26 11:34] LABS: Ethyl Alcohol < 10 mg/dl (0-10)
[2024-06-26 11:55] LABS: Microscopic, Urine URINE MICROSCOPIC (MICROSCOPIC)
[2024-06-26 11:56] LABS: Appearance,Urine CLEAR (Clear); Bilirubin,Urine Negative (Negative); Blood, Urine Negative (Negative); Color,Urine YELLOW (Yellow); Glucose,Urine (UA) Negative (Negative); Ketones,Urine Negative (Negative); Leukocyte Esterase,Urine 1+ (Negative); Nitrate,Urine Negative (Negative); Protein,Urine Negative (Negative); Specific Gravity, Urine 1.015 (1.005-1.030); Urobilinogen,Urine 0.2 EU/dl (0.2)
[2024-06-26 12:02] LABS: Bacteria,Urine Trace /lpf; Squamous Epithelial Cell,Urine Occasional #/hpf (0-5); WBC,Urine Occasional #/hpf (0-3)
[2024-06-26] MEDS: LORazepam 2MG/ML VIAL 2 MG IV (12:45)
== END 2024-06-26 16:02 | disposition home or self-care (01) ==
PROVIDERS: Emergency Provider Emergency Medicine; PCP Family Medicine
DX: G40.919 Epilepsy, unspecified, intractable, without status epilepticus (principal)
CPT/HCPCS: 80053; 80320; 81001; 85025; 87086; 93005; 96374; 96375; 99284; G0480; J1953; J2060

== ENCOUNTER 2024-07-19 15:05 | Outpatient (POV) | payer MEDICARE, MEDICAID, SELFPAY ==
--- NOTE | 2024-07-19 15:32 | A.OFFVIS_ITS ---
[facility] Disclaimer: The information contained in this section may have been updated after the patient was seen, as this information can be updated by other users. Medical History Breakthrough seizure Adjustment disorder Community acquired pneumonia Spinal stenosis, lumbar region with neurogenic claudication Lumbosacral radiculopathy due to degenerative joint disease of spine Degenerative joint disease (DJD) of lumbar spine Hypothyroidism (acquired) Hypertension Seizure Chronic low back pain Frequent UTI Heart murmur Anxiety Spinal stenosis Spinal stenosis in cervical region Former smoker Hypothyroid HTN (hypertension) Seizures Surgical History No pertinent past surgical history Family History Other Family history of cancer Family history of heart attack Social History Smoking Status: Never smoker alcohol intake: never substance use type: denies use current occupational status: other Travel in the last 8 weeks: None caregiver/support person: Yes (daughter) household members: family housing: house lives independently: No marital status: education level: middle school current occupational exposures/hazards: No caffeine: Yes special lion needs: No agree to transfusion: No PM Subjective & Objective Subjective Subjective:: Patient is a pleasant 83-year-old female who presents today for follow-up and worsening pain. She does rate her pain today a 3 out of 10 along her right shoulder and a 5 out of 10 along her low back along the left side of. Patient does state from her last visit she did end up having going to the ER for breakthrough seizures. Patient states that she is on medication on a regular basis and that Dr. Campos does prescribe medication however he did change the dosage due to some altered kidney function and then she did experience a seizure at home and when she came into the ER. Patient states that it was not anything major and that she is doing just fine from this. She denies any other changes. She does state that her right intra-articular shoulder injection that was done on 06/13/2024 did provide at least 60% improvement and was working extremely well up until the last couple of weeks. She states that right now it is still not as severe as what it was and it is more intermittent and comes and goes. She denies any other changes in this joint. She does state that most of her pain is all along her low back and the muscles on the left side. Patient did previously have injections in this area in the past and states that she would like to see about getting scheduled for these again because they did provide such significant improvements with decreased pain. She describes it as a constant aching, throbbing sensation that does interfere with her ability perform activities of daily living such as cooking and cleaning. Her Jacob has been reviewed and is appropriate.\ Review of Systems: General: No recent weight changes, no fever, no sleep disturbances Respiratory: No cough, no shortness of air, no recurring pulmonary infections Cardiovascular/peripheral vascular: No chest pain, no palpitations, no edema, no shortness of breath Gastrointestinal: No new onset incontinence, normal bowel movements reported Genitourinary: No new onset incontinence Musculoskeletal: Left-sided low back pain Psychiatric: [Normal mood/affect] Neurological: [Denies weakness in extremities], [denies balance issues] Pain at rest (0-10 scale): 5 Objective Objective:: Physical Exam: General: Alert and oriented x3, no acute distress, pleasant and cooperative Lungs: Respirations even and unlabored, symmetrical chest expansion Eyes: PERRL Musculoskeletal: Flexion and extension of lumbar [spine] somewhat guarded secondary to pain, [antalgic gait noted] point tenderness on left lumbar paraspinous muscles Neurological: Speech clear, no gross sensory deficit Has patient had previous pain injection?: Yes Percent improvement in pain since last injection: 60% Conservative treatment options previously tried: Home exercise plan Length of treatment: Longer than 12 weeks Meds Home Medications and Allergies Home Medications ?Medication ?Instructions ?Recorded ?Confirmed ?Type celecoxib 100 mg capsule 100 mg PO DAILY 01/02/21 06/13/24 History duloxetine 60 mg capsule,delayed 60 mg PO DAILY 01/02/21 06/13/24 History release esomeprazole magnesium 40 mg 40 mg PO DAILY 01/02/21 06/13/24 History capsule,delayed release meclizine 25 mg tablet 25 mg PO BIDP PRN Motion Sickness 01/02/21 06/13/24 History mirabegron 50 mg tablet,extended 50 mg PO DAILY 01/02/21 06/13/24 History release 24 hr alendronate 70 mg tablet 70 mg PO MO 01/03/21 06/13/24 History cholecalciferol (vitamin D3) 125 125 mcg PO DAILY 01/03/21 06/13/24 History mcg (5,000 unit) capsule cyanocobalamin (vitamin B-12) 500 500 mcg sublingual DAILY 01/03/21 06/13/24 History mcg disintegrating tablet,sublingual docusate sodium 250 mg capsule 250 mg PO BIDP PRN Constipation 01/03/21 06/13/24 History oxycodone 10 mg tablet 10 mg PO BID PRN Pain 01/03/21 06/13/24 History gabapentin 300 mg capsule 600 mg PO BID 01/16/21 06/13/24 History levothyroxine 25 mcg tablet 25 mcg PO DAILY 01/16/21 06/13/24 History donepezil 5 mg tablet 5 mg PO HS 08/20/22 06/13/24 History lorazepam 1 mg tablet 1 mg PO BID Anxiety 08/20/22 06/13/24 History memantine 5 mg tablet 5 mg PO BID 08/20/22 06/13/24 History brivaracetam 75 mg tablet 75 mg PO BID seizure #60 tabs 08/21/22 06/13/24 Rx loratadine 10 mg tablet 10 mg PO DAILYP PRN Allergy 03/31/23 06/13/24 History Symptoms multivitamin with minerals-folic 1 tab PO DAILY Supplement 03/31/23 06/13/24 History acid 0.4 mg tablet (One-A-Day Women's 50 Plus) irbesartan 300 1 tab PO DAILY 01/11/24 06/13/24 History mg-hydrochlorothiazide 12.5 mg tablet plecanatide 3 mg tablet (Trulance) 3 mg PO DAILY 01/11/24 06/13/24 History ondansetron 4 mg disintegrating 4 mg PO Q8H PRN nausea and 01/14/24 06/13/24 Rx tablet vomiting #20 tabs tizanidine 4 mg tablet (Zanaflex) 4 mg PO TID #90 tabs 01/26/24 06/13/24 Rx diazepam 5 mg/spray (0.1 mL) nasal 5 mg (0.1 mL) intranasal ONCE PRN 06/26/24 Rx spray seizure #2 sprays New Prescriptions to Start Prescriptions: Allergies Allergy/AdvReac Type Severity Reaction Status Date / Time codeine Allergy Intermediate Rash Verified 03/14/24 10:37 Assessment and Plan *Assessment and plan (1) Myofascial pain on left side: Status: Acute Category: Medical Code(s): M79.18 - Myalgia, other site Plan Patient is experiencing worsening pain in her low back along the left side with limited range of motion of her lumbar spine. Patient did have point tenderness along her left lumbar paraspinous muscles. I did discuss with the patient that she may benefit from trigger point injections at this location. Patient has a longstanding history of myofascial pain with previous trigger point injections that did provide more than 50% improvement. Her last trigger point injections were in February and March 2024. Patient has continued conservative treatment with no additional changes. Patient will be scheduled for trigger point injections of her left lumbar paraspinous muscles. These will be done without fluoroscopic or ultrasound guidance. Patient has been instructed to contact the clinic with any concerns before the next appointment. Dr. Gonzalez has reviewed this note and agrees with this plan of care. This note was dictated using voice recognition software and make contain errors or omissions. All injections are used with Lidocaine, Bupivacaine and Depo Medrol. Occasionally urine drug screen is needed to verify patient's compliance with our office pain contract. This is ordered based off specific treatments related to chronic pain with the potential to abuse certain medications.
[2024-07-19 15:41] VITALS: BP 129/98; PULSE 87; RESP 16; O2SAT 95; BMI 28.3
== END 2024-07-19 23:59 | disposition home or self-care (01) ==
LOC: SC.PAIN 15:06
PROVIDERS: PCP Family Medicine; Visit Provider Nurse Practitioner Family
DX: M79.18 Myalgia, other site (principal); Z73.89 Other problems related to life management difficulty; Z79.899 Other long term (current) drug therapy
CPT/HCPCS: 99212; G0463

== ENCOUNTER 2024-07-28 14:54 | Day surgery (SDC) | payer MEDICARE, MEDICAID, SELFPAY ==
[2024-07-28 15:09] VITALS: BP 145/97; PULSE 87; RESP 16; TEMP 36.6; O2SAT 94; BMI 28.3
[2024-07-28] MEDS: methylPREDNISolone ACETATE 80MG/ML VIAL 80 MG (15:45)
[2024-07-28] MEDS: LIDOCAINE 1% 5ML PF VIAL 5 ML (15:45)
[2024-07-28] MEDS: BUPIVACAINE 0.25% 10ML INJ 25 MG IJ (15:45)
[2024-07-28 15:57] VITALS: BP 148/99; PULSE 87; RESP 16; O2SAT 96
--- NOTE | 2024-07-28 15:58 | EXP.PAIN.PRO ---
Procedure Date: 07/28/24 Time: 15:45 Anesthesiologist:: Gela Murray APRN Complications:: None Pre-procedure Diagnosis:: Degenerative disc disease of lumbar spine with lumbar radiculopathy symptoms, myofascial pain Post-procedure Diagnosis:: Same Indications for Procedure:: Patient is a pleasant 83-year-old female who presents today for trigger point injections of her left lumbar paraspinous muscles. She rates her pain today a 9 out of 10. She denies any new injury or trauma. She does state that she is having quite a bit of pain in and around that left side. Her Jacob has been reviewed and is appropriate. Physical Exam: General: Alert and oriented x3, no acute distress, pleasant and cooperative Lungs: Respirations even and unlabored, symmetrical chest expansion Eyes: PERRL Musculoskeletal: Flexion and extension of lumbar [spine] somewhat guarded secondary to pain, [antalgic gait noted] point tenderness left lumbar paraspinous muscles Neurological: Speech clear, no gross sensory deficit Procedure Details:: Patient did have noninvasive blood pressure cuff applied and pulse oximeter. Patient was placed in a sitting position and palpated along her left lumbar paraspinous muscles. The area over the skin was cleansed with isopropyl alcohol and areas of point tenderness were marked. Using a sterile 25-gauge needle approximately 10 mL of 0.25% bupivacaine, 1% lidocaine and 80 mg Depo-Medrol were incrementally injected into her left lumbar paraspinous muscles. Needle was removed and sterile bandages applied. Patient tolerated the procedure well with no complications and was discharged neurologically intact. Plan and Disposition:: Patient tolerated the procedure well with no complications and was discharged neurologically intact. Patient will return to clinic in 2 weeks for reevaluation of symptoms and plan of care. Patient has been instructed to contact the clinic with any concerns before the next appointment. Dr. Gonzalez has reviewed this note and agrees with this plan of care. This note was dictated using voice recognition software and make contain errors or omissions. All injections are used with Lidocaine, Bupivacaine and Depo Medrol. Occasionally urine drug screen is needed to verify patient's compliance with our office pain contract. This is ordered based off specific treatments related to chronic pain with the potential to abuse certain medications.
== END 2024-07-28 15:57 | disposition home or self-care (01) ==
LOC: SC.PAINP 14:57
PROVIDERS: PCP Family Medicine; Visit Provider Nurse Practitioner Family
DX: M79.18 Myalgia, other site (principal); M51.16 Intervertebral disc disorders with radiculopathy, lumbar region
CPT/HCPCS: 20553; J1010

== ENCOUNTER 2024-08-11 14:57 | Outpatient (POV) | payer MEDICARE, MEDICAID, SELFPAY ==
[2024-08-11 15:11] VITALS: BP 151/71; PULSE 70; RESP 16; O2SAT 95; BMI 28.3
--- NOTE | 2024-08-11 15:38 | EXP.PAIN.SOA ---
[facility] Disclaimer: The information contained in this section may have been updated after the patient was seen, as this information can be updated by other users. Medical History Breakthrough seizure Adjustment disorder Community acquired pneumonia Spinal stenosis, lumbar region with neurogenic claudication Lumbosacral radiculopathy due to degenerative joint disease of spine Degenerative joint disease (DJD) of lumbar spine Hypothyroidism (acquired) Hypertension Seizure Chronic low back pain Frequent UTI Heart murmur Anxiety Spinal stenosis Spinal stenosis in cervical region Former smoker Hypothyroid HTN (hypertension) Seizures Surgical History No pertinent past surgical history Family History Other Family history of cancer Family history of heart attack Social History Smoking Status: Never smoker alcohol intake: never substance use type: denies use current occupational status: other Travel in the last 8 weeks: None caregiver/support person: Yes (daughter) household members: family housing: house lives independently: No marital status: education level: middle school current occupational exposures/hazards: No caffeine: Yes special lion needs: No agree to transfusion: No PM Subjective & Objective Subjective Subjective:: Patient does present today for follow-up of her trigger point injections of her left lumbar paraspinous muscles on 07/28/2024. She does state that that did help 75% and is still helping. Today she is stating though her pain is a 7 out of 10 and it does feel lower and more into her low back and hip area. She denies any new trauma or injury or recent falls. Patient states the pain is interfering with her ability perform activities of daily living such as cooking and cleaning. Patient does state the pain is more around her low back, hips, buttocks, groin and occasionally upper thighs. Patient does state that it does feel like a aching sensation with tingling and burning. Patient has continued conservative treatment with no additional improvement. Her Jacob has been reviewed and is appropriate. Review of Systems: General: No recent weight changes, no fever, no sleep disturbances Respiratory: No cough, no shortness of air, no recurring pulmonary infections Cardiovascular/peripheral vascular: No chest pain, no palpitations, no edema, no shortness of breath Gastrointestinal: No new onset incontinence, normal bowel movements reported Genitourinary: No new onset incontinence Musculoskeletal: Low back pain, bilateral hip pain, buttocks pain Psychiatric: [Normal mood/affect] Neurological: [Denies weakness in extremities], [denies balance issues] Pain at rest (0-10 scale): 7 Objective Objective:: Physical Exam: General: Alert and oriented x3, no acute distress, pleasant and cooperative Lungs: Respirations even and unlabored, symmetrical chest expansion Eyes: PERRL Musculoskeletal: Flexion and extension of lumbar [spine] somewhat guarded secondary to pain, [antalgic gait noted] point tenderness along bilateral SIs with positive bilateral Ryder's, Candelaria's, Gaenslen's, compression and distraction exam Neurological: Speech clear, no gross sensory deficit Has patient had previous pain injection?: Yes Percent improvement in pain since last injection: 75% Conservative treatment options previously tried: Home exercise plan Length of treatment: Longer than 12-week Meds Home Medications and Allergies Home Medications ?Medication ?Instructions ?Recorded ?Confirmed ?Type celecoxib 100 mg capsule 100 mg PO DAILY 01/02/21 08/11/24 History duloxetine 60 mg capsule,delayed 60 mg PO DAILY 01/02/21 08/11/24 History release esomeprazole magnesium 40 mg 40 mg PO DAILY 01/02/21 08/11/24 History capsule,delayed release meclizine 25 mg tablet 25 mg PO BIDP PRN Motion Sickness 01/02/21 08/11/24 History mirabegron 50 mg tablet,extended 50 mg PO DAILY 01/02/21 08/11/24 History release 24 hr alendronate 70 mg tablet 70 mg PO MO 01/03/21 08/11/24 History cholecalciferol (vitamin D3) 125 125 mcg PO DAILY 01/03/21 08/11/24 History mcg (5,000 unit) capsule cyanocobalamin (vitamin B-12) 500 500 mcg sublingual DAILY 01/03/21 08/11/24 History mcg disintegrating tablet,sublingual docusate sodium 250 mg capsule 250 mg PO BIDP PRN Constipation 01/03/21 08/11/24 History oxycodone 10 mg tablet 10 mg PO BID PRN Pain 01/03/21 08/11/24 History gabapentin 300 mg capsule 600 mg PO BID 01/16/21 08/11/24 History levothyroxine 25 mcg tablet 25 mcg PO DAILY 01/16/21 08/11/24 History donepezil 5 mg tablet 5 mg PO HS 08/20/22 08/11/24 History lorazepam 1 mg tablet 1 mg PO BID Anxiety 08/20/22 08/11/24 History memantine 5 mg tablet 5 mg PO BID 08/20/22 08/11/24 History brivaracetam 75 mg tablet 75 mg PO BID seizure #60 tabs 08/21/22 08/11/24 Rx loratadine 10 mg tablet 10 mg PO DAILYP PRN Allergy 03/31/23 08/11/24 History Symptoms multivitamin with minerals-folic 1 tab PO DAILY Supplement 03/31/23 08/11/24 History acid 0.4 mg tablet (One-A-Day Women's 50 Plus) irbesartan 300 1 tab PO DAILY 01/11/24 08/11/24 History mg-hydrochlorothiazide 12.5 mg tablet plecanatide 3 mg tablet (Trulance) 3 mg PO DAILY 01/11/24 08/11/24 History ondansetron 4 mg disintegrating 4 mg PO Q8H PRN nausea and 01/14/24 08/11/24 Rx tablet vomiting #20 tabs tizanidine 4 mg tablet (Zanaflex) 4 mg PO TID #90 tabs 01/26/24 08/11/24 Rx diazepam 5 mg/spray (0.1 mL) nasal 5 mg (0.1 mL) intranasal ONCE PRN 06/26/24 08/11/24 Rx spray seizure #2 sprays New Prescriptions to Start Prescriptions: Allergies Allergy/AdvReac Type Severity Reaction Status Date / Time codeine Allergy Intermediate Rash Verified 08/11/24 15:12 Assessment and Plan *Assessment and plan (1) Bilateral sacroiliitis: Status: Acute Category: Medical Code(s): M46.1 - Sacroiliitis, not elsewhere classified Plan Patient is experiencing worsening pain along the low back and bilateral hips. They did have limited range of motion of the lumbar spine along with point tenderness along bilateral SI joints and a positive bilateral Ryder's, Candelaria's, Gaenslen's, compression and distraction exam. I did discuss with the patient that I do believe they would benefit from bilateral SI injections. Risk and benefits were discussed with the patient and they would like to proceed forward with this option. Patient has tried and failed conservative therapy including continued at home stretching exercise for longer than 12 weeks. Patient has had a longstanding history of chronic sacroiliitis for longer than 6 months. Patient's last SI injections were in January that did provide 80% relief and did decrease the severity for at least 3 months. Patient has had improvement up until the last few weeks. Patient will be scheduled for bilateral SI injections under fluoroscopy. Patient has been instructed to contact the clinic with any concerns before the next appointment. Dr. Gonzalez has reviewed this note and agrees with this plan of care. This note was dictated using voice recognition software and make contain errors or omissions. All injections are used with Lidocaine or Bupivacaine and Depo Medrol.
== END 2024-08-11 23:59 | disposition home or self-care (01) ==
LOC: SC.PAIN 14:59
PROVIDERS: PCP Family Medicine; Visit Provider Nurse Practitioner Family
DX: M46.1 Sacroiliitis, not elsewhere classified (principal); Z73.89 Other problems related to life management difficulty; Z79.899 Other long term (current) drug therapy
CPT/HCPCS: 99212; G0463

== ENCOUNTER 2024-09-12 13:13 | Day surgery (SDC) | payer MEDICARE, MEDICAID, SELFPAY ==
[2024-09-12 13:26] VITALS: BP 131/52; PULSE 80; RESP 16; TEMP 36.5; O2SAT 93; BMI 28.3
--- NOTE | 2024-09-12 13:32 | P.PCN_ITS ---
Procedure Date: 09/12/24 Time: 13:30 Anesthesiologist:: Jim Ventura CRNA Complications:: None Pre-procedure Diagnosis:: Bilateral sacroiliitis Post-procedure Diagnosis:: Same Indications for Procedure:: Patient is a very pleasant 83-year-old female comes our clinic today for bilateral sacroiliac joint injection cortisone and local anesthetic. Patient describes low lumbar back pain off the midline bilaterally. Bilateral posterior hip pain. Difficulty transitioning from sitting to standing. She rates her pain 6/10. Procedure Details:: Procedure: Bilateral sacroiliac joint injections under fluoroscopy Informed consent was obtained and the risks and benefits of the procedure were explained to the patient.~ The patient was taken to the procedure room and noninvasive monitors were placed including a noninvasive blood pressure cuff and pulse oximeter.~ The patient was placed prone on the procedure table. Both hips were cleansed using Betadine as a cleansing solution. C-arm fluoroscopy was used to view the right sacroiliac joint.~ The skin and subcutaneous tissues were anesthetized using lidocaine 1.5% and a 25-gauge needle.~ After this, a 22-gauge spinal needle was inserted under fluoroscopic guidance into the inferior aspect of the right sacroiliac joint.~ Omnipaque dye was injected and good spread was seen throughout the joint.~ After this, approximately 5 mL of bupivacaine, 0.25% and Depo-Medrol, 40 mg was incrementally injected into the right sacroiliac joint. We then moved to the left sacroiliac joint.~ The skin and subcutaneous tissues were anesthetized using lidocaine 1.5% and a 25-gauge needle.~ After this, a 22- gauge spinal needle was inserted under fluoroscopic guidance into the inferior aspect of the left sacroiliac joint.~ Omnipaque dye was injected and good spread was seen throughout the joint. After this, approximately 5 mL of bupivacaine, 0.25% and Depo-Medrol, 40 mg was incrementally injected into the left sacroiliac joint.~ The patient tolerated the procedure well with no complications. The patient was observed in the Pain Clinic and then was discharged home neurologically intact. Plan and Disposition:: Patient was discharged without incident.
[2024-09-12 13:48] VITALS: BP 133/76; PULSE 77; RESP 16; O2SAT 93
[2024-09-12] MEDS: LIDOCAINE 1% 5ML PF VIAL 5 ML (15:16)
[2024-09-12] MEDS: BUPIVACAINE 0.25% 10ML INJ 25 MG IJ (15:16)
[2024-09-12] MEDS: methylPREDNISolone ACETATE 80MG/ML VIAL 80 MG (15:16)
[2024-09-12 15:17] VITALS: BP 131/52; PULSE 80; RESP 18; O2SAT 93
[2024-09-12 15:20] VITALS: BP 131/52; PULSE 80; RESP 18; O2SAT 93
== END 2024-09-12 13:48 | disposition home or self-care (01) ==
PROVIDERS: PCP Family Medicine; Visit Provider Nurse Anesthetist, Certified Registered
DX: M46.1 Sacroiliitis, not elsewhere classified (principal)
CPT/HCPCS: 27096; G0260; J1010

== ENCOUNTER 2024-09-27 15:12 | Outpatient (POV) | payer MEDICARE, MEDICAID, SELFPAY ==
[2024-09-27 15:24] VITALS: BP 170/80; PULSE 84; RESP 18; O2SAT 95; BMI 28.3
--- NOTE | 2024-09-27 15:41 | A.OFFVIS_ITS ---
[facility] Disclaimer: The information contained in this section may have been updated after the patient was seen, as this information can be updated by other users. Medical History Breakthrough seizure Adjustment disorder Community acquired pneumonia Spinal stenosis, lumbar region with neurogenic claudication Lumbosacral radiculopathy due to degenerative joint disease of spine Degenerative joint disease (DJD) of lumbar spine Hypothyroidism (acquired) Hypertension Seizure Chronic low back pain Frequent UTI Heart murmur Anxiety Spinal stenosis Spinal stenosis in cervical region Former smoker Hypothyroid HTN (hypertension) Seizures Surgical History No pertinent past surgical history Family History Other Family history of cancer Family history of heart attack Social History Smoking Status: Never smoker alcohol intake: never substance use type: denies use current occupational status: other Travel in the last 8 weeks: None caregiver/support person: Yes (daughter) household members: family housing: house lives independently: No marital status: education level: middle school current occupational exposures/hazards: No caffeine: Yes special lion needs: No agree to transfusion: No Have you lived/traveled outside US in past 30 days?: No Contact w/someone who lives/traveled outside US past 30 days?: No Exposure to someone with infectious disease in past 14 days?: No Do you have a fever (greater than 100.4 F or 38 C)?: No Have you tested positive for COVID-19: No Exposed to someone with COVID-19 in past 14 days?: No Do you have a sore throat?: No Do you have a cough?: No Do you have any weakness?: No Do you have any diarrhea?: No Are you experiencing any unusual bleeding?: No Do you have any muscle aches/pain?: No Do you have any abdominal pain?: No Are you experiencing loss of taste or smell?: No PM Subjective & Objective Subjective Subjective:: Patient is a pleasant 83-year-old female who presents today for follow-up of bilateral SI injections on 09/12/2024. She rates her pain today a 3 out of 10. Patient states that these injections have helped tremendously. She does state that it did help a little bit the initial day that she had these done however it really took the next day before she noticed a huge improvement. Patient states that she does feel like it is still working well and she is able to move around easier. Patient does use a walker to ambulate with. Patient does have a little elevated blood pressure during today's visit. Her Jacob has been reviewed and is appropriate. Review of Systems: General: No recent weight changes, no fever, no sleep disturbances Respiratory: No cough, no shortness of air, no recurring pulmonary infections Cardiovascular/peripheral vascular: No chest pain, no palpitations, no edema, no shortness of breath Gastrointestinal: No new onset incontinence, normal bowel movements reported Genitourinary: No new onset incontinence Musculoskeletal: Low back pain Psychiatric: [Normal mood/affect] Neurological: [Denies weakness in extremities], [denies balance issues] Pain at rest (0-10 scale): 3 Objective Objective:: Physical Exam: General: Alert and oriented x3, no acute distress, pleasant and cooperative Lungs: Respirations even and unlabored, symmetrical chest expansion Eyes: PERRL Musculoskeletal: Flexion and extension of lumbar [spine] somewhat guarded secondary to pain, [antalgic gait noted] Neurological: Speech clear, no gross sensory deficit Has patient had previous pain injection?: Yes Percent improvement in pain since last injection: 80% Conservative treatment options previously tried: Home exercise plan Length of treatment: Longer than 12 weeks Meds Home Medications and Allergies Home Medications ?Medication ?Instructions ?Recorded ?Confirmed ?Type celecoxib 100 mg capsule 100 mg PO DAILY 01/02/21 09/27/24 History duloxetine 60 mg capsule,delayed 60 mg PO DAILY 01/02/21 09/27/24 History release esomeprazole magnesium 40 mg 40 mg PO DAILY 01/02/21 09/27/24 History capsule,delayed release meclizine 25 mg tablet 25 mg PO BIDP PRN Motion Sickness 01/02/21 09/27/24 History mirabegron 50 mg tablet,extended 50 mg PO DAILY 01/02/21 09/27/24 History release 24 hr alendronate 70 mg tablet 70 mg PO MO 01/03/21 09/27/24 History cholecalciferol (vitamin D3) 125 125 mcg PO DAILY 01/03/21 09/27/24 History mcg (5,000 unit) capsule cyanocobalamin (vitamin B-12) 500 500 mcg sublingual DAILY 01/03/21 09/27/24 History mcg disintegrating tablet,sublingual docusate sodium 250 mg capsule 250 mg PO BIDP PRN Constipation 01/03/21 09/27/24 History oxycodone 10 mg tablet 10 mg PO BID PRN Pain 01/03/21 09/27/24 History gabapentin 300 mg capsule 600 mg PO BID 01/16/21 09/27/24 History levothyroxine 25 mcg tablet 25 mcg PO DAILY 01/16/21 09/27/24 History donepezil 5 mg tablet 5 mg PO HS 08/20/22 09/27/24 History lorazepam 1 mg tablet 1 mg PO BID Anxiety 08/20/22 09/27/24 History memantine 5 mg tablet 5 mg PO BID 08/20/22 09/27/24 History brivaracetam 75 mg tablet 75 mg PO BID seizure #60 tabs 08/21/22 09/27/24 Rx loratadine 10 mg tablet 10 mg PO DAILYP PRN Allergy 03/31/23 09/27/24 History Symptoms multivitamin with minerals-folic 1 tab PO DAILY Supplement 03/31/23 09/27/24 History acid 0.4 mg tablet (One-A-Day Women's 50 Plus) irbesartan 300 1 tab PO DAILY 01/11/24 09/27/24 History mg-hydrochlorothiazide 12.5 mg tablet plecanatide 3 mg tablet (Trulance) 3 mg PO DAILY 01/11/24 09/27/24 History ondansetron 4 mg disintegrating 4 mg PO Q8H PRN nausea and 01/14/24 09/27/24 Rx tablet vomiting #20 tabs tizanidine 4 mg tablet (Zanaflex) 4 mg PO TID #90 tabs 01/26/24 09/27/24 Rx diazepam 5 mg/spray (0.1 mL) nasal 5 mg (0.1 mL) intranasal ONCE PRN 06/26/24 09/27/24 Rx spray seizure #2 sprays New Prescriptions to Start Prescriptions: Allergies Allergy/AdvReac Type Severity Reaction Status Date / Time codeine Allergy Intermediate Rash Verified 08/11/24 15:12 Assessment and Plan *Assessment and plan (1) Bilateral sacroiliitis: Status: Acute Category: Medical Code(s): M46.1 - Sacroiliitis, not elsewhere classified Plan Patient has had significant improvement following her bilateral SI injections and does not require any additional injection therapy at this time. Patient will return to clinic in 3 weeks for reevaluation of symptoms and plan of care. Patient has been instructed to contact the clinic with any concerns before the next appointment. Dr. Gonzalez has reviewed this note and agrees with this plan of care. This note was dictated using voice recognition software and make contain errors or omissions. All injections are used with Lidocaine, Bupivacaine and Depo Medrol. Occasionally urine drug screen is needed to verify patient's compliance with our office pain contract. This is ordered based off specific treatments related to chronic pain with the potential to abuse certain medications.
== END 2024-09-27 23:59 | disposition home or self-care (01) ==
LOC: SC.PAIN 15:14
PROVIDERS: PCP Family Medicine; Visit Provider Nurse Practitioner Family
DX: M46.1 Sacroiliitis, not elsewhere classified (principal); Z79.899 Other long term (current) drug therapy
CPT/HCPCS: 99212; G0463

== ENCOUNTER 2024-10-18 14:11 | Outpatient (POV) | payer MEDICARE, MEDICAID, SELFPAY ==
[2024-10-18 14:31] VITALS: BP 140/84; PULSE 85; RESP 16; O2SAT 93; BMI 28.3
--- NOTE | 2024-10-18 15:50 | A.OFFVIS_ITS ---
[facility] Disclaimer: The information contained in this section may have been updated after the patient was seen, as this information can be updated by other users. Medical History Breakthrough seizure Adjustment disorder Community acquired pneumonia Spinal stenosis, lumbar region with neurogenic claudication Lumbosacral radiculopathy due to degenerative joint disease of spine Degenerative joint disease (DJD) of lumbar spine Hypothyroidism (acquired) Hypertension Seizure Chronic low back pain Frequent UTI Heart murmur Anxiety Spinal stenosis Spinal stenosis in cervical region Former smoker Hypothyroid HTN (hypertension) Seizures Surgical History No pertinent past surgical history Family History Other Family history of cancer Family history of heart attack Social History Smoking Status: Never smoker alcohol intake: never substance use type: denies use current occupational status: other Travel in the last 8 weeks: None caregiver/support person: Yes (daughter) household members: family housing: house lives independently: No marital status: education level: middle school current occupational exposures/hazards: No caffeine: Yes special lion needs: No agree to transfusion: No PM Subjective & Objective Subjective Subjective:: Patient is a pleasant 83-year-old female who presents today for worsening pain. She rates it a 6 out of 10. Patient states it is all across her hips and does state that it is both sides. She states that last night it was definitely a 10 out of 10. Patient denies any new falls or injuries. She does state that the pain is worse with prolonged positioning and does interfere with her ability perform activities of daily living such as cooking and cleaning. Patient did previously have bilateral SI injections back at the beginning of September that did provide significant improvements but did take about a day to kick in. Patient is interested in additional injection therapy. Patient does also get prescribed tizanidine 4 mg 3 times a day and compounded cream from our office. She denies any side effects from this medication but is requesting refills. Her Jacob has been reviewed and is appropriate Review of Systems: General: No recent weight changes, no fever, no sleep disturbances Respiratory: No cough, no shortness of air, no recurring pulmonary infections Cardiovascular/peripheral vascular: No chest pain, no palpitations, no edema, no shortness of breath Gastrointestinal: No new onset incontinence, normal bowel movements reported Genitourinary: No new onset incontinence Musculoskeletal: Bilateral hip pain Psychiatric: [Normal mood/affect] Neurological: [Denies weakness in extremities], [denies balance issues] Pain at rest (0-10 scale): 6 Objective Objective:: Physical Exam: General: Alert and oriented x3, no acute distress, pleasant and cooperative Lungs: Respirations even and unlabored, symmetrical chest expansion Eyes: PERRL Musculoskeletal: Flexion and extension of bilateral hips somewhat guarded secondary to pain, [antalgic gait noted] point tenderness along bilateral SI joints as well as bilateral greater trochanteric bursa's Neurological: Speech clear, no gross sensory deficit Has patient had previous pain injection?: No Conservative treatment options previously tried: Home exercise plan Length of treatment: Longer than 12 weeks Meds Home Medications and Allergies Home Medications ?Medication ?Instructions ?Recorded ?Confirmed ?Type celecoxib 100 mg capsule 100 mg PO DAILY 01/02/21 10/18/24 History duloxetine 60 mg capsule,delayed 60 mg PO DAILY 01/02/21 10/18/24 History release esomeprazole magnesium 40 mg 40 mg PO DAILY 01/02/21 10/18/24 History capsule,delayed release meclizine 25 mg tablet 25 mg PO BIDP PRN Motion Sickness 01/02/21 10/18/24 History mirabegron 50 mg tablet,extended 50 mg PO DAILY 01/02/21 10/18/24 History release 24 hr alendronate 70 mg tablet 70 mg PO MO 01/03/21 10/18/24 History cholecalciferol (vitamin D3) 125 125 mcg PO DAILY 01/03/21 10/18/24 History mcg (5,000 unit) capsule cyanocobalamin (vitamin B-12) 500 500 mcg sublingual DAILY 01/03/21 10/18/24 History mcg disintegrating tablet,sublingual docusate sodium 250 mg capsule 250 mg PO BIDP PRN Constipation 01/03/21 10/18/24 History oxycodone 10 mg tablet 10 mg PO BID PRN Pain 01/03/21 10/18/24 History gabapentin 300 mg capsule 600 mg PO BID 01/16/21 10/18/24 History levothyroxine 25 mcg tablet 25 mcg PO DAILY 01/16/21 10/18/24 History donepezil 5 mg tablet 5 mg PO HS 08/20/22 10/18/24 History lorazepam 1 mg tablet 1 mg PO BID Anxiety 08/20/22 10/18/24 History memantine 5 mg tablet 5 mg PO BID 08/20/22 10/18/24 History brivaracetam 75 mg tablet 75 mg PO BID seizure #60 tabs 08/21/22 10/18/24 Rx loratadine 10 mg tablet 10 mg PO DAILYP PRN Allergy 03/31/23 10/18/24 History Symptoms multivitamin with minerals-folic 1 tab PO DAILY Supplement 03/31/23 10/18/24 History acid 0.4 mg tablet (One-A-Day Women's 50 Plus) irbesartan 300 1 tab PO DAILY 01/11/24 10/18/24 History mg-hydrochlorothiazide 12.5 mg tablet plecanatide 3 mg tablet (Trulance) 3 mg PO DAILY 01/11/24 10/18/24 History ondansetron 4 mg disintegrating 4 mg PO Q8H PRN nausea and 01/14/24 10/18/24 Rx tablet vomiting #20 tabs diazepam 5 mg/spray (0.1 mL) nasal 5 mg (0.1 mL) intranasal ONCE PRN 06/26/24 10/18/24 Rx spray seizure #2 sprays suzetrigine 50 mg tablet (Journavx) 50 mg PO DAILY #14 tabs 10/18/24 Rx tizanidine 4 mg tablet (Zanaflex) 4 mg PO TID #90 tabs 10/18/24 Rx New Prescriptions to Start Prescriptions: suzetrigine [Journavx] Gela Murray tizanidine [Zanaflex] Gela Murray Allergies Allergy/AdvReac Type Severity Reaction Status Date / Time codeine Allergy Intermediate Rash Verified 08/11/24 15:12 Assessment and Plan *Assessment and plan (1) Greater trochanteric bursitis of both hips: Status: Acute Category: Medical Code(s): M70.61 - Trochanteric bursitis, right hip; M70.62 - Trochanteric bursitis, left hip (2) Bilateral sacroiliitis: Status: Acute Category: Medical Code(s): M46.1 - Sacroiliitis, not elsewhere classified Plan Patient is experiencing worsening pain in her bilateral hips with point tenderness along her bilateral SI's and bilateral greater trochanteric bursa's. Patient did have the right side bursa more tender than the left during today's visit. I did discuss with the patient that I do believe she would benefit from bilateral greater trochanteric bursa injections. Risk and benefits were discussed with the patient and she would like to proceed forward with this plan of care. I will also refill her tizanidine and increase her compounded cream concentration. Due to the acute pain I did discuss with patient that I will send in a 2-week dose of journavx 50 mg daily to see if that helps in the acute phase of the worsening pain. Patient has had longstanding pain throughout her low back for years. Patient has continued conservative treatment including oral medication, heat and ice, topicals, at home stretching exercise for longer than 12 weeks. Patient will be scheduled for bilateral greater trochanteric bursa injections under fluoroscopy. Patient has been instructed to contact the clinic with any concerns before the next appointment. Dr. Gonzalez has reviewed this note and agrees with this plan of care. This note was dictated using voice recognition software and make contain errors or omissions. All injections are used with Lidocaine, Bupivacaine and Depo Medrol. Occasionally urine drug screen is needed to verify patient's compliance with our office pain contract. This is ordered based off specific treatments related to chronic pain with the potential to abuse certain medications.
== END 2024-10-18 23:59 | disposition home or self-care (01) ==
PROVIDERS: PCP Family Medicine; Visit Provider Nurse Practitioner Family
DX: M70.61 Trochanteric bursitis, right hip (principal); M70.62 Trochanteric bursitis, left hip; M46.1 Sacroiliitis, not elsewhere classified; Z73.89 Other problems related to life management difficulty; Z79.899 Other long term (current) drug therapy
CPT/HCPCS: 99212; G0463

== ENCOUNTER 2024-11-21 14:13 | Day surgery (SDC) | payer MEDICARE, MEDICAID, SELFPAY ==
[2024-11-21 14:26] VITALS: BP 151/67; PULSE 81; RESP 16; TEMP 36.6; O2SAT 98; BMI 28.3
[2024-11-21 14:35] VITALS: BP 151/67; PULSE 81; RESP 18; O2SAT 98
[2024-11-21] MEDS: BUPIVACAINE 0.25% 10ML INJ 25 MG IJ (14:35)
[2024-11-21] MEDS: DEXAMETHASONE 10MG/ML 1ML VIAL 10 MG (14:35)
[2024-11-21 14:37] VITALS: BP 151/67; PULSE 81; RESP 18; O2SAT 98
--- NOTE | 2024-11-21 14:40 | P.PCN_ITS ---
Procedure Date: 11/21/24 Time: 14:45 Anesthesiologist:: Jim Ventura CRNA Complications:: None Pre-procedure Diagnosis:: Bilateral trochanteric bursitis Post-procedure Diagnosis:: Same. Indications for Procedure:: Patient is a very pleasant 84-year-old female who comes our clinic today for bilateral trochanteric bursal injections of cortisone local anesthetic. Patient describes bilateral lateral hip pain that is constant, dull, aching. She is having difficulty lying on either side due to the pain. She has extreme point tenderness over the bilateral trochanteric bursa areas. She rates her pain 8/10. Procedure Details:: Procedure: Bilateral trochanteric bursa joint injections under fluoroscopy Informed consent was obtained and the risks and benefits of the procedure were explained to the patient.~ The patient was taken to the procedure room and noninvasive monitors were placed including a noninvasive blood pressure cuff and pulse oximeter.~ The patient was placed prone on the procedure table. Both hips were cleansed using Betadine as a cleansing solution. C-arm fluoroscopy was used to view the right trochanteric bursa joint.~ The skin and subcutaneous tissues were anesthetized using lidocaine 1.5% and a 25-gauge needle.~ After this, a 22- gauge spinal needle was inserted under fluoroscopic guidance into the inferior aspect of the right trochanteric bursa.~ Omnipaque dye was injected and good spread was seen throughout the joint.~ After this, approximately 5 mL of bupivacaine, 0.25% and Depo-Medrol, 40 mg was incrementally injected into the right sacroiliac joint. We then moved to the left trochanteric bursa joint.~ The skin and subcutaneous tissues were anesthetized using lidocaine 1.5% and a 25-gauge needle.~ After this, a 22-gauge spinal needle was inserted under fluoroscopic guidance into the inferior aspect of the left trochanteric bursa joint.~ Omnipaque dye was injected and good spread was seen throughout the joint. After this, approximately 5 mL of bupivacaine, 0.25% and Depo-Medrol, 40 mg was inc rementally injected into the left sacroiliac joint.~ The patient tolerated the procedure well with no complications. The patient was observed in the Pain Clinic and then was discharged home neurologically intact. Plan and Disposition:: Patient was discharged without incident.
[2024-11-21 14:41] VITALS: BP 159/58; PULSE 82; RESP 16; O2SAT 96
== END 2024-11-21 14:41 | disposition home or self-care (01) ==
PROVIDERS: PCP Family Medicine; Visit Provider Nurse Anesthetist, Certified Registered
DX: M70.61 Trochanteric bursitis, right hip (principal); M70.62 Trochanteric bursitis, left hip
CPT/HCPCS: 20610; 77002; J1100

== ENCOUNTER 2024-12-14 13:49 | Outpatient (POV) | payer MEDICARE, MEDICAID, SELFPAY ==
--- OUTSIDE RECORDS SUMMARY | 2024-10-31 11:45 | XMS_ITS ---
Author Organization [facility] Address [address] [facility] [address] [place] [id number] Care Team Providers Care Boarding Specialist Name Role Phone Triston Campos Primary Care Provider [phone] Results Component Value Reference Range Notes Urinalysis - Inhouse Reviewed date:11/02/2024 09:12:59 AM Interpretation: Performing Lab: Notes/Report: Color/Clarity yellow Leuk trace Nitrite neg Urobili 3.2 Protein neg pH 5.5 Blood neg Sp. Gr. 1.020 Ketone neg Bili neg Gluc neg P-Culture, Urine Reviewed date:11/02/2024 11:46:28 AM Interpretation:No Significant Growth Performing Lab: Notes/Report: Test performed by [employer] [address] [place] [address] , [address], [place] [address] Adrian Gilbert MD, Pin Drafter Operator CLIA: [id number] Specimen Source Urine - Void Culture, Urine See Below Final Report : No Significant Growth REASON FOR VISIT U/A Encounters Encounter Location Date Provider Diagnosis [facility] [address] [facility] [address] [place] [id number] 10/31/2024 Triston Campos Urinary tract infect ion without hematuria, site unspecified N39.0 Assessments Encounter Date Diagnosis (ICD Code) Assessment Notes Treatment Notes Treatment Clinical Notes Section Notes 10/31/2024 Urinary tract infection without hematuria, site unspecified (ICD-10 - N39.0) Plan Of Treatment No Information Progress Notes * Maura CARRERODOB:1940 (84 yo F)Acc No.[id number]:10/31/2024 Patient: Maura SHULTZ Provider: Briana Campos M.D. :1940 A ge:84 Y S ex:Female Date:10/31/2024 Address:[facility] [address], [place], [id number] Subjective: * Chief Complaints: * 1 . U/A. * Medical History: Objective: * Vitals: Assessment: * Assessment: 1. U rinary tract infection without hematuria, site unspecified - N39.0 Plan: * Treatment: Value Reference Range C ulture, Urine See Below - * S pecimen Source Urine - Void - * Chun Laura 11/02/2024 11:46:1 3 AM > Pt's daughter Liv informed ?LAB: Urinalysis - Inhouse (Collection Date & Time - 10/31/2024)* Value Reference Range C olor/Clarity yellow * L euk trace * N itrite neg * U robili 3.2 * P rotein neg * p H 5.5 * B lood neg * S p. Gr. 1.020 * K etone neg * B hilda neg * G joselyn neg * Chelsie Apple 10/31/2024 03:3 6:18 PM > * Procedure Codes: 8 1002 Urinalysis, no micro * Billing Information: * Visit Code: * Procedure Codes: 80418 Urinalysis, no micro. * Electronic signature of Fidelia Campos MD on 12/14/2024 at 02:44 PM EDT Sign off status: Pending * Provider: Briana Campos M.D. Date: 0 10/31/2024 Generated for [facility] ng/Faxing/eTransmitting on: 0 12/14/2024 02:44 PM EDT
--- OUTSIDE RECORDS SUMMARY | 2024-11-10 10:15 | XMS_ITS ---
Author Organization [facility] Address [address] [place] [id number] Care Team Providers Care Newspaper Inserter Name Role Phone Triston Campos Primary Care Provider Allergies Allergen (clinical drug ingredient) Drug/Non Drug Allergy documented on EMR Reaction Allergy Type Onset Date Status codeine Codeine numbness Drug Allergy Active Results Component Value Reference Range Notes Urinalysis - Inhouse Reviewed date:11/11/2024 10:25:47 AM Interpretation: Performing Lab: Notes/Report: Color/Clarity yellow Leuk trace Nitrite neg Urobili 3.2 Protein neg pH 5.5 Blood neg Sp. Gr. 1.020 Ketone neg Bili neg Gluc neg CBC Venipuncture (in house) Reviewed date:11/11/2024 10:26:00 AM Interpretation: Performing Lab: Notes/Report: wbc 7.7 3.5 - 10 lymph 23.3% 15 - 50 mid 5.4% 2 - 15 gran 71.3% 35 - 80 rbc 3.86 3.5 - 5.5 hgb 12.8 11.5 - 16.5 hct 38.1 35 - 55 mcv 98.7 75 - 100 mch 33.2 25 - 35 mchc 33.6 31 - 38 platlet 223 100 - 400 P-Comprehensive Metabolic Pa krystal (CMP) Reviewed date:11/14/2024 10:18:02 AM Interpretation:gluc 153, bun 29, Cr 1.5, gfr 34 Performing Lab: Notes/Report: Test performed by [facility] [place] [address] [place] [address] , [address], [place] [address] Adrian Gilbert MD, Digital Asset Manager CLIA: [id number] Sodium 143 135-145 mmol/L Potassium 4.1 3.5-5.3 mmol/L Chloride 106 97-108 mmol/L CO2 24 22-32 mmol/L Glucose 153 65-99 mg/dL BUN 29 8-23 mg/dL Creatinine 1.50 0.50-1.00 mg/dL Calcium 9.9 8.6-10.4 mg/dL eGFR by Creatinine 34 >59 mL/min/1.73m2 Protein 6.6 6.0-8.3 g/dL Albumin 3.7 3.5-5.3 g/dL Alkaline Phosphatase 90 35-121 IU/L ALT (SGPT) 18 <5-47 IU/L AST (SGOT) 14 <5-40 IU/L Bilirubin, Total 0.3 <0.2-1.2 mg/dL A/G Ratio 1.3 1.1-2.5 P-TSH reflex to FT4 Reviewed date:11/14/2024 10:18:24 AM Interpretation:Normal Performing Lab: Notes/Report: Test performed by [facility] , [address], [place] [address] Adrian Gilbert MD, Digital Asset Manager CLIA: [id number] TSH reflex to FT4 2.68 0.43-5.25 mU/L TEN-UTI panel Reviewed date:11/14/2024 10:18:38 AM Interpretation:E. Coli-sensitive Performing Lab: Notes/Report: E. Coli-sensitive TEN-UTI panel Reviewed date:11/14/2024 10:18:38 AM Interpretation:E. Coli-sensitive Performing Lab: Notes/Report: E. Coli-sensitive REASON FOR VISIT Fatigue, Confusion, Poss UTI Medications Medication SIG (Take, Route, Frequency, Duration) Notes Start Date End Date Status Cefuroxime Axetil 500 MG 1 tablet Orally every 12 hrs for 5 days 11/10/2024 Active Vitamin B 12 500 MCG 1 tab(s) orally onc e a day 03/06/2020 Active Vitamin D3 50 MCG (1999 UT) 1 tab(s) ora lly twice a day Active tiZANidine HCl 2 MG 1 tab(s) orally ever y 8 hours as needed Active Lactase - as directed Active Commode Bedside - as directed Active Walker - as directed Active Phenazopyridine HCl 200 MG 1 tablet afte r meals Orally Three times a day for 2 day(s) Active Wheelchair - as directed Activ e Tamsulosin HCl 0.4 MG 1 capsule Orally O nce a day for 30 day(s) Active Lactulose 10 GM/15ML TAKE 15ML BY MOUTH ONCE DAILY NEEDED for 30 Active Levothyroxine Sodium 25 MCG 1 tab(s) ora lly once a day for 90 days Active Irbesartan-hydroCHLOROthiazi de 300-12.5 MG TAKE ONE TABLET BY MOUTH EVERY DAY for 90 Active Briviact 75 MG 1 tab(s) orally Twic e a day for 90 days 10/18/2024 Active LORazepam 1 MG 1 tab(s) orally 2 ti mes a day for 30 day(s) 08/17/2024 Active Memantine HCl 5 mg TAKE ONE TABLET BY M OUTH TWICE DAILY for 90 Active oxyCODONE HCl 10 MG 1 tab(s) orally 2 ti mes a day for 30 days 09/26/2024 Active DULoxetine HCl 60 mg TAKE ONE CAPSULE BY MOUTH EVERY DAY for 30 Active Trulance 3 mg TAKE ONE TABLET BY M OUTH EVERY DAY for 90 Active Docusate Sodium 250 mg TAKE ONE CAPSULE BY MOUTH TWICE DAILY NEEDED for 30 Active Gabapentin 300 MG 2 capsules orally 2 times daily 07/28/2024 Active Furosemide 20 mg 1 tablet Orally Once a day for 90 days Active Alendronate Sodium 70 mg TAKE ONE TABLET BY MOUTH ONCE A WEEK for 84 Active Myrbetriq 50 mg 1 tablet Orally Once a day for 90 days Active Azelastine HCl 137 MCG/SPRAY 2 puffs (1 spray in each nostril) Nasally Twice a day 06/29/2024 Active Donepezil HCl 5 mg TAKE ONE TABLET BY M OUTH EVERY DAY AT BEDTIME for 90 Active Esomeprazole Magnesium 40 mg TAKE ONE CA PSULE BY MOUTH EVERY DAY for 90 Active MiraLax 17 GM/SCOOP 1 scoop mixed with 8 ounces of fluid Orally Once a day 06/29/2024 Active Celecoxib 100 mg 1 capsule Orally Onc e a day for 90 days Active Diclofenac Sodium 1 % 4 grams Externally four times a day as needed 03/28/2024 Active Meclizine HCl 25 MG 1 tab(s) orally twic e a day as needed for 90 days Active Lumbar Back Brace/Support Pad - as directed 12/11/2022 Active Triamcinolone Acetonide 0.1 % 1 application Externally Twice a day 02/24/2024 Active Albuterol Sulfate HFA 108 (90 Base) MCG/ACT 2 puff(s) inhaled qid and q2h prn for 30 days 04/14/2022 Active Vital Signs Blood pressure systolic 118 mm Hg 11/11/19 25 Blood pressure diastolic 70 mm Hg 025 Heart Rate 92 /min 11/10/2024 Height 62 in 11/10/2024 Weight 189 lbs 11/10/2024 BMI 34.56 kg/m2 11/10/2024 Encounters Encounter Location Date Provider Diagnosis [facility] [address] [facility] [address] [place] [id number] 11/10/2024 Triston Campos Frequent UTI N39.0 ; Fatigue, unspecified type R53.83 and Stage 3b chronic kidney disease N18.32 Assessments Encounter Date Diagnosis (ICD Code) Assessment Notes Treatment Notes Treatment Clinical Notes Section Notes 11/10/2024 Frequent UTI (ICD-10 - N39.0) 11/10/2024 Fatigue, unspecified type (ICD-10 - R53.83) 11/10/2024 Stage 3b chronic kidney disease (ICD-10 - N18.32) Plan Of Treatment Medication Medication Name Sig Start Date Stop Date Notes Cefuroxime Axetil 500 MG 1 tablet Orally every 12 hrs for 5 days 11/10/2024 Next Appt Details Follow Up: via phone to repo rt test results, Reason: Progress Notes * Maura CARRERODOB:1940 (84 yo F)Acc No.[id number]:11/10/2024 Progress Notes Patient: Maura SHULTZ Provider: Briana Campos M.D. :1940 A ge:84 Y S ex:Female Date:11/10/2024 Address:[facility] [address] [place], [id number] Subjective: * Chief Complaints: * 1 . Fatigue, Confusion, Poss UTI. * HPI: H PI: 84 year old female presents with c/o Patient is here today for?Pt's daughter states that pt has not felt good for about a week. Pt is tired all the time and pt's daughter is concerned pt may have a UTI. * ROS: C ARDIOLOGY: no D izziness. n o C hest pain. D ERMATOLOGY: no R tasha. n o H rica. G ASTROENTEROLOGY: no N ausea. n o V omiting. 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 * Surgical History: D enies Past Surgical History. * Hospitalization/Major Diagno stic Procedure: D enies Past Hospitalization. * Family History: F ather: , enlarged heart, colon cancer. M other: . S iblings: heart attack, leukemia. 2 brother(s) , 5 sister(s) . 2 son(s) , 3 daughter(s) . . * Social History: C URRENT TOBACCO USE S moking Status: Patient does NOT smoke. C affeine: no, some coffee. Past smoking status: no, quit years ago. Sexually active: no.. * Medications: T aking Tamsulosin HCl 0.4 MG Capsule 1 capsule Orally Once a day , Taking Phenazopyridine HCl 200 MG Tablet 1 tablet after meals Orally Three times a day , Taking Wheelchair - Miscellaneous as directed , Taking Commode Bedside - Miscellaneous as directed , Taking Walker - Miscellaneous as directed , Taking Lactase - Powder as directed , Taking Vitamin D3 50 MCG (2000 UT) Tablet 1 tab(s) orally twice a day , Taking tiZANidine HCl 2 MG Tablet 1 tab(s) orally every 8 hours as needed , Taking Vitamin B 12 500 MCG Tablet 1 tab(s) orally once a day , Taking Albuterol Sulfate HFA 108 (90 Base) MCG/ACT Aerosol Solution 2 puff(s) inhaled qid and q2h prn , Taking Lumbar Back Brace/Support Pad - Miscellaneous as directed , Taking Triamcinolone Acetonide 0.1 % Cream 1 application Externally Twice a day , Taking Diclofenac Sodium 1 % Gel 4 grams Externally four times a day as needed , Taking Meclizine HCl 25 MG Tablet 1 tab(s) orally twice a day as needed , Taking Azelastine HCl 137 MCG/SPRAY Solution 2 puffs (1 spray in each nostril) Nasally Twice a day , Taking MiraLax 17 GM/SCOOP Powder 1 scoop mixed with 8 ounces of fluid Orally Once a day , Taking Celecoxib 100 mg Capsule 1 capsule Orally Once a day , Taking Donepezil HCl 5 mg Tablet TAKE ONE TABLET BY MOUTH EVERY DAY AT BEDTIME , Taking Esomeprazole Magnesium 40 mg Capsule Delayed Release TAKE ONE CAPSULE BY MOUTH EVERY DAY , Taking Alendronate Sodium 70 mg Tablet TAKE ONE TABLET BY MOUTH ONCE A WEEK , Taking Myrbetriq 50 mg Tablet Extended Release 24 Hour 1 tablet Orally Once a day , Taking Gabapentin 300 MG Capsule 2 capsules orally 2 times daily , Taking Furosemide 20 mg Tablet 1 tablet Orally Once a day , Taking Docusate Sodium 250 mg Capsule TAKE ONE CAPSULE BY MOUTH TWICE DAILY NEEDED , Taking LORazepam 1 MG Tablet 1 tab(s) orally 2 times a day , Taking Trulance 3 mg Tablet TAKE ONE TABLET BY MOUTH EVERY DAY , Taking oxyCODONE HCl 10 MG Tablet 1 tab(s) orally 2 times a day , Taking DULoxetine HCl 60 mg Capsule Delayed Release Particles TAKE ONE CAPSULE BY MOUTH EVERY DAY , Taking Memantine HCl 5 mg Tablet TAKE ONE TABLET BY MOUTH TWICE DAILY , Taking Briviact 75 MG Tablet 1 tab(s) orally Twice a day , Taking Levothyroxine Sodium 25 MCG Tablet 1 tab(s) orally once a day , Taking Irbesartan-hydroCHLOROthiazide 300-12.5 MG Tablet TAKE ONE TABLET BY MOUTH EVERY DAY , Taking Lactulose 10 GM/15ML Solution TAKE 15ML BY MOUTH ONCE DAILY NEEDED , Discontinued Macrobid 100 MG Capsule 1 capsule with food Orally every 12 hrs , Medication List reviewed and reconciled with the patient * Allergies: C odeine: numbness. Objective: * Vitals: W t: 189, Temp: 97.8, BP: 118/70, HR: 92, Nurse: karen, Ht: 62, BMI:34.56. * Examination: G eneral Examination: General Appearance: N AD, sitting in a wheelchair. Heart: R SR. Lungs: c lear to auscultation. Abdomen: b owel sounds present , soft and nontender. Back: no CVA tenderness. Assessment: * Assessment: 1. F requent UTI - N39.0 (Primary) 2 . F atigue, unspecified type - R53.83? 3. S tage 3b chronic kidney disease - N18.32 Plan: * Treatment: Value Reference Range C olor/Clarity yellow * L euk trace * N itrite neg * U robili 3.2 * P rotein neg * p H 5.5 * B lood neg * S p. Gr. 1.020 * K etone neg * B hilda neg * G jsoelyn neg * Chelsie Apple 11/10/2024 03:48 :56 PM > Provider reviewed results while patient in office.Triston Campos 11/11/2024 10:25:42 AM > ?LAB: TEN-UTI panel (Collection Date & Time - 11/10/2024)?E. Coli-sensitive * Isabelle Yu 11/13/2024 04:3 8:45 PM >pt started on cefuroximeWhIsabelle french 11/14/2024 10:18:33 AM > See phone encounter 2.?Fatigue, unspecified type?LAB: P-Comprehensive Metabolic Panel (CMP) (Collection Date & Time - 11/10/2024 01:44 PM)?gluc 153, bun 29, Cr 1.5, gfr 34* Value Reference Range A /G Ratio 1.3 1.1-2.5 - * A lbumin 3.7 3.5-5.3 - g/dL * A lkaline Phosphatase 90 35-121 - IU/L * A LT (SGPT) 18 <5-47 - IU/L * A ST (SGOT) 14 <5-40 - IU/L * B ilirubin, Total 0.3 <0.2-1.2 - mg/dL * B UN 29 H 8-23 - mg/dL * C alcium 9.9 8.6-10.4 - mg/dL * C hloride 106 97-108 - mmol/L * C O2 24 22-32 - mmol/L * C reatinine 1.50 H 0.50-1.00 - mg/dL * G lucose 153 H 65-99 - mg/dL * P otassium 4.1 3.5-5.3 - mmol/L * S odium 143 135-145 - mmol/L * P rotein 6.6 6.0-8.3 - g/dL * e GFR by Creatinine 34 L >59 - mL/min/1.73m2 * Isabelle Yu 11/14/2024 10:1 7:55 AM > See phone encounter ?LAB: P-TSH reflex to FT4 (Collection Date & Time - 11/10/2024 01:44 PM)? Normal* Value Reference Range T SH reflex to FT4 2.68 0.43-5.25 - mU/L * Isabelle Yu 11/14/2024 10:1 8:19 AM > See phone encounter ?LAB: CBC Venipuncture (in house) (Collection Date & Time - 11/10/2024)* Value Reference Range w bc 7.7 3.5 - 10 * l ymph 23.3% 15 - 50 * m id 5.4% 2 - 15 * g ran 71.3% 35 - 80 * r bc 3.86 3.5 - 5.5 * h gb 12.8 11.5 - 16.5 * h ct 38.1 35 - 55 * m cv 98.7 75 - 100 * m ch 33.2 25 - 35 * m chc 33.6 31 - 38 * p latlet 223 100 - 400 * Laura Mccollum 11/10/2024 03:12:1 0 PM >Triston Campos 11/11/2024 10:25:55 AM > 3.?Stage 3b chronic kidney disease?LAB: P-Comprehensive Metabolic Panel (CMP) (Collection Date & Time - 11/10/2024 01:44 PM)?gluc 153, bun 29, Cr 1.5, gfr 34* Value Reference Range A /G Ratio 1.3 1.1-2.5 - * A lbumin 3.7 3.5-5.3 - g/dL * A lkaline Phosphatase 90 35-121 - IU/L * A LT (SGPT) 18 <5-47 - IU/L * A ST (SGOT) 14 <5-40 - IU/L * B ilirubin, Total 0.3 <0.2-1.2 - mg/dL * B UN 29 H 8-23 - mg/dL * C alcium 9.9 8.6-10.4 - mg/dL * C hloride 106 97-108 - mmol/L * C O2 24 22-32 - mmol/L * C reatinine 1.50 H 0.50-1.00 - mg/dL * G lucose 153 H 65-99 - mg/dL * P otassium 4.1 3.5-5.3 - mmol/L * S odium 143 135-145 - mmol/L * P rotein 6.6 6.0-8.3 - g/dL * e GFR by Creatinine 34 L >59 - mL/min/1.73m2 * Isabelle Yu 11/14/2024 10:1 7:55 AM > See phone encounter * Procedure Codes: G 2211 Complex e/[place], [address] Urinalysis, no micro, 35391 CBC WITH AUTO DIFF, 3074F SYST BP LT 130 MM HG, 3078F DIAST BP < 80 MM HG * Follow Up: v ia phone to report test results * Billing Information: * Visit Code: 35945 Office Visit, Est Pt., Level 4. * Procedure Codes: G2211 Complex e/[place]. [address] Urinalysis, no micro. 56244 CBC WITH AUTO DIFF. 3074F SYST BP LT 130 MM HG. 3078F DIAST BP < 80 MM HG. * Electronic signature of Fidelia Campos MD on 12/14/2024 at 02:43 PM EDT Sign off status: Pending * Provider: Briana Campos M.D. Date: 0 11/10/2024 Generated for Ter[place] paredes/[place]/eTreynoldsmitting on: 0 12/14/2024 02:43 PM EDT History and Physical Notes * HPI (History of Present Illness) Category Sub-Category Detail Notes Category Not es HPI Patient is here today for Pt's d raziahter states that pt has not felt good for about a week. Pt is tired all the time and pt's daughter is concerned pt may have a UTI Examination Category Sub-Category Detail Notes Category Not es General Examination Heart: RSR Lungs: clear to auscultatio n Abdomen: bowel sounds present , soft and nontender General Appearance: NAD, sitting in a wh eelchair Back: no CVA tenderness
--- OUTSIDE RECORDS SUMMARY | 2024-11-17 06:00 | XMS_ITS ---
Author Organization [facility] Address [address] [place] [id number] Care Team Providers Care Monotype Machinist Name Role Phone [place] Triston Primary Care Provider Allergies Allergen (clinical drug ingredient) Drug/Non Drug Allergy documented on EMR Reaction Allergy Type Onset Date Status codeine Codeine numbness Drug Allergy Active Results Component Value Reference Range Notes Urinalysis - Inhouse Reviewed date:11/17/2024 12:41:29 PM Interpretation: Performing Lab: Notes/Report: Color/Clarity jose luis/clear Leuk Neg Nitrite Neg Urobili 3.2 Protein Trace pH 5.5 Blood Neg Sp. Gr. 1.015 Ketone Neg Bili Neg Gluc Neg Influenza Screen (in house) Reviewed date:11/17/2024 12:47:12 PM Interpretation:neg Performing Lab: Notes/Report: neg results neg CBC Fingerstick (in house) Reviewed date:11/17/2024 12:49:40 PM Interpretation: Performing Lab: Notes/Report: wbc 12.7 3.5 - 10 lym 9.4 15 - 50 mid 2.9 2 - 15 gran 87.7 35 - 80 rbc 3.86 3.5 - 5.5 hgb 12.8 11.5 - 16.5 hct 38.4 35 - 55 mcv 99.6 75 - 100 mch 33.2 25 - 35 mchc 33.3 31 - 38 plat 199 100 - 400 REASON FOR VISIT Poss UTI Medications Medication SIG (Take, Route, Frequency, Duration) Notes Start Date End Date Status Irbesartan-hydroCHLOROthiazi de 300-12.5 MG TAKE ONE TABLET BY MOUTH EVERY DAY for 90 Active Lactulose 10 GM/15ML TAKE 15ML BY MOUTH ONCE DAILY NEEDED for 30 Active levoFLOXacin 500 MG 1 tablet Orally Once a day for 7 days 11/17/2024 Active hydrOXYzine HCl 25 MG 1 tablet as needed Orally Two times a day 11/15/2024 Active oxyCODONE HCl 10 MG 1 tab(s) orally 2 ti mes a day for 30 days 09/26/2024 Active DULoxetine HCl 60 mg TAKE ONE CAPSULE BY MOUTH EVERY DAY for 30 Active Memantine HCl 5 mg TAKE ONE TABLET BY M OUTH TWICE DAILY for 90 Active Briviact 75 MG 1 tab(s) orally Twic e a day for 90 days 10/18/2024 Active Levothyroxine Sodium 25 MCG 1 tab(s) ora lly once a day for 90 days Active Gabapentin 300 MG 2 capsules orally 2 times daily 07/28/2024 Active Furosemide 20 mg 1 tablet Orally Once a day for 90 days Active Docusate Sodium 250 mg TAKE ONE CAPSULE BY MOUTH TWICE DAILY NEEDED for 30 Active LORazepam 1 MG 1 tab(s) orally 2 ti mes a day for 30 day(s) 08/17/2024 Active Trulance 3 mg TAKE ONE TABLET BY M OUTH EVERY DAY for 90 Active Myrbetriq 50 mg 1 tablet Orally Once a day for 90 days Active Celecoxib 100 mg 1 capsule Orally Onc e a day for 90 days Active Donepezil HCl 5 mg TAKE ONE TABLET BY M OUTH EVERY DAY AT BEDTIME for 90 Active Esomeprazole Magnesium 40 mg TAKE ONE CA PSULE BY MOUTH EVERY DAY for 90 Active Alendronate Sodium 70 mg TAKE ONE TABLET BY MOUTH ONCE A WEEK for 84 Active Triamcinolone Acetonide 0.1 % 1 application Externally Twice a day 02/24/2024 Active Diclofenac Sodium 1 % 4 grams Externally four times a day as needed 03/28/2024 Active Meclizine HCl 25 MG 1 tab(s) orally twic e a day as needed for 90 days Active Azelastine HCl 137 MCG/SPRAY 2 puffs (1 spray in each nostril) Nasally Twice a day 06/29/2024 Active MiraLax 17 GM/SCOOP 1 scoop mixed with 8 ounces of fluid Orally Once a day 06/29/2024 Active Albuterol Sulfate HFA 108 (90 Base) MCG/ACT 2 puff(s) inhaled qid and q2h prn for 30 days 04/14/2022 Active Lumbar Back Brace/Support Pad - as directed 12/11/2022 Active Vitamin D3 50 MCG (1999 UT) 1 tab(s) ora lly twice a day Active tiZANidine HCl 2 MG 1 tab(s) orally ever y 8 hours as needed Active Vitamin B 12 500 MCG 1 tab(s) orally onc e a day 03/06/2020 Active Phenazopyridine HCl 200 MG 1 tablet afte r meals Orally Three times a day for 2 day(s) Active Wheelchair - as directed Activ e Commode Bedside - as directed Active Walker - as directed Active Lactase - as directed Active Tamsulosin HCl 0.4 MG 1 capsule Orally O nce a day for 30 day(s) Active Vital Signs Blood pressure systolic 164 mm Hg 11/18/19 25 Blood pressure diastolic 60 mm Hg 025 Heart Rate 102 /min 11/17/2024 Height 62 in 11/17/2024 Weight 000 lbs 11/17/2024 Encounters Encounter Location Date Provider Diagnosis [facility] [address] [facility] [address] [place], [place] [id number] 11/17/2024 Triston Campos Acute UTI N39.0 and Fever, unspecified R50.9 Assessments Encounter Date Diagnosis (ICD Code) Assessment Notes Treatment Notes Treatment Clinical Notes Section Notes 11/17/2024 Acute UTI (ICD-10 - N39.0) Urine PCR panel reviewed in office today with patient's daughter. Patient seems to have a partially treated infection 11/17/2024 Fever, unspecified (ICD-10 - R50.9) Plan Of Treatment Medication Medication Name Sig Start Date Stop Date Notes levoFLOXacin 500 MG 1 tablet Orally Once a day for 7 days 11/17/2024 Treatment Notes Assessment Notes Acute UTI Urine PCR panel revi ewed in office today with patient's daughter. Patient seems to have a partially treated infection Next Appt Details Follow Up: via phone to repo rt progress, Reason: Progress Notes * Maura CARRERODOB:1940 (84 yo F)Acc No.[id number]:11/17/2024 Progress Notes Patient: Maura SHULTZ Provider: Briana Campos M.D. :1940 A ge:84 Y S ex:Female Date:11/17/2024 Address:[facility] [address] [place], [id number] Subjective: * Chief Complaints: * 1 . Poss UTI. * HPI: U rology: 84 year old female presents with c/o fever. c/o UTI T he pt is here for a follow up on frequent UTI's. Pt's Daughter sytates the patient was up and down a lot last night and just seemed like she was confused. Denies : frequent urination. D enies : burning sensation.?Denies : suprapubic pain. D enies : hematuria. * ROS: D ERMATOLOGY: no R tasha. n o H rica. G ASTROENTEROLOGY: no N ausea. n o V omiting. n o D iarrhea.? U ROLOGY: no D ifficulty urinating. n o B lood in urine. 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 * Family History: F ather: , enlarged [...] 15ML BY MOUTH ONCE DAILY NEEDED , Taking hydrOXYzine HCl 25 MG Tablet 1 tablet as needed Orally Two times a day , Discontinued Cefuroxime Axetil 500 MG Tablet 1 tablet Orally every 12 hrs , Medication List reviewed and reconciled with the patient * Allergies: C odeine: numbness. Objective: * Vitals: W t: 000, Temp: 103.1, BP: 164/60, HR: 102, Nurse: CY, Ht: 62. * Examination: G eneral Examination: General Appearance: N AD, sitting in a wheelchair. Heart: R SR. Lungs: c lear to auscultation. Abdomen: b owel sounds present , soft and nontender. Back: no CVA tenderness. Assessment: * Assessment: 1. A cute UTI - N39.0 (Primary) 2 . F ever, unspecified - R50.9 ? Plan: * Treatment: Value Reference Range C olor/Clarity jose luis/clear * L euk Neg * N itrite Neg * U robili 3.2 * P rotein Trace * p H 5.5 * B lood Neg * S p. Gr. 1.015 * K etone Neg * B hilda Neg * G joselyn Neg * Merry Castellanos 11/17/2024 11 :30:16 AM > Provider reviewed results while patient in office. Notes: Urine PCR panel reviewed in office today with patient's daughter. Patient seems to have a partially treated infection??2.?Fever, unspecified?LAB: Influenza Screen (in house) (Collection Date & Time - 11/17/2024)?neg * Value Reference Range r esults neg * TienayakaChelsie 11/17/2024 11:2 5:19 AM > Provider reviewed results while patient in office. ?LAB: CBC Fingerstick (in house) (Collection Date & Time - 11/17/2024)* Value Reference Range w bc 12.7 3.5 - 10 * l ym 9.4 15 - 50 * m id 2.9 2 - 15 * g ran 87.7 35 - 80 * r bc 3.86 3.5 - 5.5 * h gb 12.8 11.5 - 16.5 * h ct 38.4 35 - 55 * m cv 99.6 75 - 100 * m ch 33.2 25 - 35 * m chc 33.3 31 - 38 * p lat 199 100 - 400 * Chelsie Apple 11/17/2024 11:2 6:10 AM > Provider reviewed results while patient in office. * Procedure Codes: G 2211 Complex e/[place], [address] CAPILLARY BLOOD DRAW, 21882 CBC WITH AUTO DIFF, 57039 Flu Test- Nasal Swab, Modifiers: QW , 25643 Urinalysis, no micro * Follow Up: v ia phone to report progress * Billing Information: * Visit Code: 76294 Office Visit, Est Pt., Level 4. * Procedure Codes: G2211 Complex e/[place]. [address] CAPILLARY BLOOD DRAW. 33118 CBC WITH AUTO DIFF. 68317 Flu Test- Nasal Swab. Modifiers: QW 43874 Urinalysis, no micro. * Electronic signature of Fidelia Campos MD on 12/14/2024 at 02:45 PM EDT Sign off status: Pending * Provider: Briana Campos M.D. Date: 0 11/17/2024 Generated for Terra paredes/[place]/Jimmysmitting on: 0 12/14/2024 02:45 PM EDT History and Physical Notes * HPI (History of Present Illness) Category Sub-Category Detail Notes Category Not es Urology frequent urination burning sensation suprapubic pain hematuria fever UTI The pt is here for a follow up on frequent UTI's. Pt's Daughter sytates the patient was up and down a lot last night and just seemed like she was confused Examination Category Sub-Category Detail Notes Category Not es General Examination Heart: RSR Lungs: clear to auscultatio n Abdomen: bowel sounds present , soft and nontender General Appearance: NAD, sitting in a wh eelchair Back: no CVA tenderness
--- OUTSIDE RECORDS SUMMARY | 2024-12-07 09:06 | XMS_ITS | Encounter Summary ---
Author Organization Healthcare Address [address] [place] [address] Care Team Providers Care Follow Up Specialist Name Role Phone Triston Campos MD Primary Care Provider + [phone] Reason for Referral * Imaging (Routine) - Closed Specialty Diagnoses / Procedures Referred By Khalif gr Referred To Contact Radiology Diagnoses History of kidney stones Procedures CT Renal Stone wo IV Contrast Judie Borrero APRN [address] [address] Phone: tel: fax: Referral ID Status Reason Start Date Expiration Date Visits Re quested Visits Authorized [id number] Closed 06/08/2024 12/08/2025 1 1 Reason for Visit * Imaging (Routine) - Closed Specialty Diagnoses / Procedures Referred By Khalif gr Referred To Contact Radiology Diagnoses History of kidney stones Procedures CT Renal Stone wo IV Contrast Judie Borrero APRN [address] [place] [address] Phone: tel: fax: Referral ID Status Reason Start Date Expiration Date Visits Re quested Visits Authorized [id number] Closed 06/08/2024 12/08/2025 1 1 Encounter Details Date Type Department Care Team (Latest Contact Info) Description 12/07/2024 9:06 AM EDT - 12/07/2024 11:59 PM EDT Hospital Encounter [facility] [address], [address] [place] [address] History of kidney stones Discharge [...] and Family Not on file 02/21/2024 Attends Baptism Services Not on file 02/20 Active Member [...] place to sleep or slept in a group home (including now)? No 02/21/2024 AUDIT-C Answer Date [...] Upcoming Encounters Date Type Department Care Team ([facility] st Contact Info) Description 06/14/2025 8:30 AM EST Appointment [facility] Ultrasound [address], [address] [place] [address] 06/14/2025 10:30 AM EST Office Visit Medical Office Building Urology [address] [facility], [address] [place] [phone] Noprice, Judie M, [employer]IEF CLERK [address] [place] [address] documented as of this encounter [...] Roblero MD on 12/07/2024 12:02 PM us Judei M Noomen [employer]IE[employer] IMG CT PROCEDURES Final Res ult documented in this encounter Visit Diagnoses Diagnosis History of kidney stones documented in this encounter Additional Health Concerns Infection Onset Date Last Indicated Resolved Time MRSA Comment:Added from external infection. Source: [facility]. 09/03/2015 02/18/2024 Assessment Noted Time A fall risk assessment has been complete d for the patient 12/07/2024 10:09 AM EDT A Body Mass Index follow-up plan has been documented for the patient 12/07/2024 10:32 AM EDT documented as of this encounter Care Teams Follow Up Specialist Relationship Specialty Start Date End Date Triston Campos MD [address] [place] [address] PCP - General 11/15/20 documented as of this encounter
--- OUTSIDE RECORDS SUMMARY | 2024-12-07 11:10 | XMS_ITS | Encounter Summary ---
Author Organization [facility] Address [address] [place] [address] Care Team Providers Care Embossing Machine Operator Name Role Phone Triston Campos MD Primary Care Provider + [phone] Reason for Referral * Imaging (Routine) - Authorized Specialty Diagnoses / Procedures Referred By Khalif gr Referred To Contact Radiology Diagnoses History of kidney stones Procedures US Renal Complete Judie Borrero APRN [address] [place] [address] Phone: tel: fax: Referral ID Status Reason Start Date Expiration Date V isits Requested Visits Authorized [id number] Authorized 12/07/2024 06/08/2026 1 1 Reason for [...] Encounter Details Date Type Department Care Team ([facility] Contact Info) Description 12/07/2024 11:10 AM EDT Office Visit Medical Office Building Urology [facility] [address] [facility], [address] [place] [phone] Judie Borrero APRN [address] [place] [phone] History of kidney stones (Primary Dx) Social [...] and Family Not on file 02/21/2024 Attends Zoroastrianism Services Not on file 02/20 Active Member [...] place to sleep or slept in a alf (including now)? No 02/21/2024 AUDIT-C Answer Date [...] Borrero, ALEAH - 12/07/2024 11:10 AM EDT [facility] Urology Clinic Note 12/07/24 CC: [...] Anxiety Chronic kidney disease 02/18/24 admitted to [facility] for septic shock with acute kidney injury due to kidney stone - discharged02/21/24. Dementia (CMS/[facility]) Dental disease dentures GERD (gastroesophageal reflux disease) Hyperlipidemia Hypertension Hypothyroidism Irritable bowel syndrome Seizures ([facility]) epilepsy - last 2022 Spinal stenosis [...] Resource Strain: Low Risk (01/17/2024) Received from [facility] Overall Financial Resource Strain (CARDIA) Difficulty [...] No Physical Activity: Inactive (01/17/2024) Received from [facility] Exercise Vital Sign On average, how many days per week do you engage in moderate to strenuous exercise (like a brisk walk)?: 0 days On average, how many minutes do you engage in exercise at this level?: 0 min Stress: No Stress Concern Present (01/17/2024) Received from [facility] [place] of Occupational Health - Occupational Stress Questionnaire Feeling of Stress : Not at all Social Connections: Unknown (02/21/2024) Social Connection and Isolation Panel Frequency of Communication with Friends and Family: Not on file Frequency of Social Gatherings with Friends and Family: Not on file Attends Zoroastrianism Services: Not on file Active Member of [...] Info) Description 06/14/2025 8:30 AM EST Appointment [facility] Ultrasound [address] [place] [phone] 06/14/2025 10:30 AM EST Office Visit Medical Office Building Urology [address] [facility], [address] [place] [phone] Judie Borrero APRN [address] [place] [phone] Scheduled Orders Name Type Priority Associated Diagnoses Orde r Schedule US Renal Complete Imaging Routine History of kidney stones Expected: 06/08/2025 (Approximate), Expires: 06/08/2026 documented as of this encounter Visit Diagnoses Diagnosis History of kidney stones- Primary documented in this encounter Additional Health Concerns Infection Onset Date Last Indicated Resolved Time MRSA Comment:Added from external infection. Source: [facility]. 09/03/2015 02/18/2024 Assessment Noted Time A fall risk assessment has been complete d for the patient 12/07/2024 10:09 AM EDT A Body Mass Index follow-up plan has been documented for the patient 12/07/2024 10:32 AM EDT documented as of this encounter Care Teams Embossing Machine Operator Relationship Specialty Start Date End Date Triston Campos MD [address] [place] [facility]31 PCP - General 11/15/20 documented as of this encounter
--- NOTE | 2024-12-14 13:58 | EXP.PAIN.SOA ---
[facility] Disclaimer: The information contained in this section may have been updated after the patient was seen, as this information can be updated by other users. Medical History Breakthrough seizure Adjustment disorder Community acquired pneumonia Spinal stenosis, lumbar region with neurogenic claudication Lumbosacral radiculopathy due to degenerative joint disease of spine Degenerative joint disease (DJD) of lumbar spine Hypothyroidism (acquired) Hypertension Seizure Chronic low back pain Frequent UTI Heart murmur Anxiety Spinal stenosis Spinal stenosis in cervical region Former smoker Hypothyroid HTN (hypertension) Seizures Surgical History No pertinent past surgical history Family History Other Family history of cancer Family history of heart attack Social History Smoking Status: Never smoker alcohol intake: never substance use type: denies use current occupational status: other Travel in the last 8 weeks?: None caregiver/support person: Yes (daughter) household members: family housing: house lives independently: No marital status: education level: middle school current occupational exposures/hazards: No caffeine: Yes special lion needs: No agree to transfusion: No PM Subjective & Objective Subjective Subjective:: Patient is a pleasant 84-year-old female who presents today for follow-up of bilateral bursa injections on 11/29/2024. Today she rates her pain a 7 out of 10. Patient denies any new falls or injuries. Patient does state that this did provide approximately 50 percent improvement. Patient does state that she is still having good improvement in her hand ups however her low back is really giving her fits. Patient states the pain is fairly constant and is worse with prolonged sitting or standing. Patient does state that she is having to change positions frequently due to the pain. Patient is interested in additional injection therapy as the ongoing pain is affecting her ability perform activities of daily living such as cooking and cleaning. Patient is prescribed tizanidine 4 mg 3 times a day and compounded cream from our office. She denies any side effects. Her Jacob has been reviewed and is appropriate. Review of Systems: General: No recent weight changes, no fever, no sleep disturbances Respiratory: No cough, no shortness of air, no recurring pulmonary infections Cardiovascular/peripheral vascular: No chest pain, no palpitations, no edema, no shortness of breath Gastrointestinal: No new onset incontinence, normal bowel movements reported Genitourinary: No new onset incontinence Musculoskeletal: Low back pain Psychiatric: [Normal mood/affect] Neurological: [Denies weakness in extremities], [denies balance issues] Pain at rest (0-10 scale): 7 Objective Objective:: Physical Exam: General: Alert and oriented x3, no acute distress, pleasant and cooperative Lungs: Respirations even and unlabored, symmetrical chest expansion Eyes: PERRL Musculoskeletal: Flexion and extension of lumbar [spine] somewhat guarded secondary to pain, [antalgic gait noted] point tenderness along bilateral SIs with positive bilateral Ryder's, Candelaria's, Gaenslen's, compression and distraction exam Neurological: Speech clear, no gross sensory deficit Has patient had previous pain injection?: Yes Percent improvement in pain since last injection: 50% Conservative treatment options previously tried: Home exercise plan Length of treatment: Longer than 12 weeks Meds Home Medications and Allergies Home Medications ?Medication ?Instructions ?Recorded ?Confirmed ?Type celecoxib 100 mg capsule 100 mg PO DAILY 01/02/21 11/21/24 History duloxetine 60 mg capsule,delayed 60 mg PO DAILY 01/02/21 11/21/24 History release esomeprazole magnesium 40 mg 40 mg PO DAILY 01/02/21 11/21/24 History capsule,delayed release meclizine 25 mg tablet 25 mg PO BIDP PRN Motion Sickness 01/02/21 11/21/24 History mirabegron 50 mg tablet,extended 50 mg PO DAILY 01/02/21 11/21/24 History release 24 hr alendronate 70 mg tablet 70 mg PO MO 01/03/21 11/21/24 History cholecalciferol (vitamin D3) 125 125 mcg PO DAILY 01/03/21 11/21/24 History mcg (5,000 unit) capsule cyanocobalamin (vitamin B-12) 500 500 mcg sublingual DAILY 01/03/21 11/21/24 History mcg disintegrating tablet,sublingual docusate sodium 250 mg capsule 250 mg PO BIDP PRN Constipation 01/03/21 11/21/24 History oxycodone 10 mg tablet 10 mg PO BID PRN Pain 01/03/21 11/21/24 History gabapentin 300 mg capsule 600 mg PO BID 01/16/21 11/21/24 History levothyroxine 25 mcg tablet 25 mcg PO DAILY 01/16/21 11/21/24 History donepezil 5 mg tablet 5 mg PO HS 08/20/22 11/21/24 History lorazepam 1 mg tablet 1 mg PO BID Anxiety 08/20/22 11/21/24 History memantine 5 mg tablet 5 mg PO BID 08/20/22 11/21/24 History brivaracetam 75 mg tablet 75 mg PO BID seizure #60 tabs 08/21/22 11/21/24 Rx loratadine 10 mg tablet 10 mg PO DAILYP PRN Allergy 03/31/23 11/21/24 History Symptoms multivitamin with minerals-folic 1 tab PO DAILY Supplement 03/31/23 11/21/24 History acid 0.4 mg tablet (One-A-Day Women's 50 Plus) irbesartan 300 1 tab PO DAILY 01/11/24 11/21/24 History mg-hydrochlorothiazide 12.5 mg tablet plecanatide 3 mg tablet (Trulance) 3 mg PO DAILY 01/11/24 11/21/24 History ondansetron 4 mg disintegrating 4 mg PO Q8H PRN nausea and 01/14/24 11/21/24 Rx tablet vomiting #20 tabs diazepam 5 mg/spray (0.1 mL) nasal 5 mg (0.1 mL) intranasal ONCE PRN 06/26/24 11/21/24 Rx spray seizure #2 sprays suzetrigine 50 mg tablet (Journavx) 50 mg PO DAILY #14 tabs 10/18/24 11/21/24 Rx tizanidine 4 mg tablet (Zanaflex) 4 mg PO TID #90 tabs 10/18/24 11/21/24 Rx New Prescriptions to Start Prescriptions: Allergies Allergy/AdvReac Type Severity Reaction Status Date / Time codeine Allergy Intermediate Rash Verified 08/11/24 15:12 Assessment and Plan *Assessment and plan (1) Bilateral sacroiliitis: Status: Acute Category: Medical Code(s): M46.1 - Sacroiliitis, not elsewhere classified Plan Patient is experiencing worsening pain along the low back and bilateral hips. They did have limited range of motion of the lumbar spine along with point tenderness along bilateral SI joints and a positive bilateral Ryder's, Candelaria's, Gaenslen's, compression and distraction exam. I did discuss with the patient that I do believe they would benefit from bilateral SI injections. Risk and benefits were discussed with the patient and they would like to proceed forward with this option. Patient has tried and failed conservative therapy. Patient has been actively doing conservative treatment including oral medication, heat and ice, topicals, at home exercising and stretching for longer than 12 weeks. Patient is having to adjust their activity based off the increased pain resulting in activity modification. I do believe the patient would benefit from SI injection. Patient has had significant improvements with SI injections in the past. Patient had her last injections at the beginning of September that did provide 80% relief and have worked well up until this point. This will be a therapeutic injection with less than 0.5 mL of solution to be injected. Patient is not a candidate for SI fusion due to her age and comorbidities. Patient will be scheduled for bilateral SI injections under fluoroscopy. Patient has been instructed to contact the clinic with any concerns before the next appointment. Dr. Gonzalez has reviewed this note and agrees with this plan of care. This note was dictated using voice recognition software and make contain errors or omissions. All injections are used with Lidocaine or Bupivacaine and dexamethasone unless diagnostic in which no steroids were injected.
--- OUTSIDE RECORDS SUMMARY | 2024-12-14 14:42 | XMS_ITS | Patient Health Record ---
Author Organization 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 Name Role Phone Beth Triston Primary Care Provider Leena Bhagat Unavailable [phone] Allergies Allergen (clinical drug ingredient) Drug/Non Drug Allergy documented on EMR Reaction Allergy Type Onset Date Status codeine Codeine numbness Drug Allergy Active Results Component Value Reference Range Notes CBC Venipuncture (in house) Reviewed date:02/16/2024 03:47:08 PM Interpretation: Performing Lab: Notes/Report: wbc 24.1 3.5 - 10 lymph 8.8% 15 - 50 mid 2.8% 2 - 15 gran 88.4% 35 - 80 rbc 4.13 3.5 - 5.5 hgb 13.8 11.5 - 16.5 hct 41.7 35 - 55 mcv 100.9 75 - 100 mch 33.5 25 - 35 mchc 33.2 31 - 38 platlet 241 100 - 400 P-Basic Metabolic Panel (BMP ) Reviewed date:02/18/2024 08:56:46 AM Interpretation:bun 68,co2 20, creat 3.66, gluc 138, Na 134, gfr 12 Performing Lab: Notes/Report: Test performed by [facility] [address] [place] [address] , [address], [place] [address] Adrian Gilbert MD, Rn Rehab CLIA: [id number] Sodium 134 135-145 mmol/L Potassium 5.0 3.5-5.3 mmol/L Chloride 99 97-108 mmol/L CO2 20 22-32 mmol/L Glucose 138 65-99 mg/dL BUN 68 8-23 mg/dL Creatinine 3.66 0.50-1.00 mg/dL Calcium 9.9 8.6-10.4 mg/dL eGFR by Creatinine 12 >59 mL/min/1.73m2 P-Comprehensive Metabolic Pa krystal (CMP) Reviewed date:02/25/2024 09:33:16 AM Interpretation:gluc 129, bun 24, Cr 1.18, gfr 45 Performing Lab: Notes/Report: Test performed by [facility] [address] [place] [address] , [address], [place] [address] Adrian Gilbert MD, Rn Rehab CLIA: [id number] Sodium 143 135-145 mmol/L Potassium 4.1 3.5-5.3 mmol/L Chloride 106 97-108 mmol/L CO2 24 22-32 mmol/L Glucose 129 65-99 mg/dL BUN 24 8-23 mg/dL Creatinine 1.18 0.50-1.00 mg/dL Calcium 10.1 8.6-10.4 mg/dL eGFR by Creatinine 45 >59 mL/min/1.73m2 Protein 6.9 6.0-8.3 g/dL Albumin 3.8 3.5-5.3 g/dL Alkaline Phosphatase 82 35-121 IU/L ALT (SGPT) 27 <5-47 IU/L AST (SGOT) 16 <5-40 IU/L Bilirubin, Total 0.3 <0.2-1.2 mg/dL A/G Ratio 1.2 1.1-2.5 CBC Venipuncture (in house) Reviewed date:08/12/2024 01:27:24 PM Interpretation: Normal Performing Lab: Notes/Report: Normal wbc 8.8 3.5 - 10 lymph 26.6% 15 - 50 mid 5.5% 2 - 15 gran 67.9% 35 - 80 rbc 3.89 3.5 - 5.5 hgb 13.1 11.5 - 16.5 hct 38.5 35 - 55 mcv 98.9 75 - 100 mch 33.7 25 - 35 mchc 34.0 31 - 38 platlet 246 100 - 400 P-Vitamin B12 Reviewed date:08/12/2024 01:27:24 PM Interpretation:[id number] Performing Lab: Notes/Report: Test performed by [facility] [address] [place] [address] , [address], [place] [address] Adrian Gilbert MD, Rn Rehab CLIA: [id number] Vitamin B12 2295 767-3064 pg/mL P-Comprehensive Metabolic Pa krystal (CMP) Reviewed date:08/12/2024 01:27:24 PM Interpretation:bun 35, cr 1.35, gfr 38 Performing Lab: Notes/Report: Test performed by [facility] [address] [place] [address] , [address], [place] [address] Adrian Gilbert MD, Rn Rehab CLIA: [id number] Sodium 142 135-145 mmol/L Potassium 5.1 3.5-5.3 mmol/L Chloride 104 97-108 mmol/L CO2 27 22-32 mmol/L Glucose 92 65-99 mg/dL BUN 35 8-23 mg/dL Creatinine 1.35 0.50-1.00 mg/dL Calcium 10.2 8.6-10.4 mg/dL eGFR by Creatinine 38 >59 mL/min/1.73m2 Protein 7.0 6.0-8.3 g/dL Albumin 4.1 3.5-5.3 g/dL Alkaline Phosphatase 93 35-121 IU/L ALT (SGPT) 14 <5-47 IU/L AST (SGOT) 13 <5-40 IU/L Bilirubin, Total 0.3 <0.2-1.2 mg/dL A/G Ratio 1.4 1.1-2.5 P-Culture, Urine Reviewed date:08/14/2024 09:01:10 AM Interpretation:No growth Performing Lab: Notes/Report: Test performed by [facility] [address] [place] [address] , [address], [place] [address] Adrian Gilbert MD, Rn Rehab CLIA: [id number] Specimen Source Urine - CC Culture, Urine See Below Final Report : No growth P-Magnesium Reviewed date:08/12/2024 01:27:24 PM Interpretation: Normal Performing Lab: Notes/Report: Test performed by [facility] [address] [place] [address] , [address], [place] [address] Adrian Gilbert MD, Rn Rehab CLIA: [id number] Magnesium 2.3 1.6-2.4 mg/dL P-Phosphorus Reviewed date:08/12/2024 01:27:24 PM Interpretation: Normal Performing Lab: Notes/Report: Test performed by [facility] [address] [place] [address] , [place] [address] Adrian Gilbert MD, Rn Rehab CLIA: [id number] Phosphorus 3.3 2.5-4.5 mg/dL P-TSH reflex to FT4 Reviewed date:08/12/2024 01:27:24 PM Interpretation: Normal Performing Lab: Notes/Report: Test performed by [facility] [address] , [address], [place] [address] Adrian Gilbert MD, Rn Rehab CLIA: [id number] TSH reflex to FT4 4.20 0.43-5.25 mU/L P-Vitamin D 25-Hydroxy Reviewed date:08/12/2024 01:27:24 PM Interpretation: Normal Performing Lab: Notes/Report: Test performed by [facility] [address] [place] [address] , [address], [place] [address] Adrian Gilbert MD, Rn Rehab CLIA: [id number] Vitamin D 25-Hydroxy 67.3 30.0-100.0 ng/mL Interpretation of Vitamin D 25 OH: < 20 ng/mL - Deficiency 20 - 29 ng/mL - Insufficiency 30 - 100 ng/mL - Sufficiency > 100 ng/mL - Super-therapeutic- toxicity may occur above this level. Clinical correlation required. Urinalysis - Inhouse Reviewed date:09/08/2024 11:03:52 AM Interpretation:tracke leuk Performing Lab: Notes/Report: tracke leuk Color/Clarity dark yellow/cloudy Leuk Trace Nitrite Neg Urobili 3.2 Protein Neg pH 5.5 Blood Neg Sp. Gr. >=1.030 Ketone Trace Bili Neg Gluc Neg TEN-UTI panel Reviewed date:09/08/2024 11:10:00 AM Interpretation:Negative Performing Lab: Notes/Report: Negative Urinalysis - Inhouse Reviewed date:10/26/2024 08:29:47 AM Interpretation: Performing Lab: Notes/Report: Color/Clarity yellow/clear Leuk 1+ Nitrite Pos Urobili 3.2 Protein 1+ pH 5.0 Blood Neg Sp. Gr. 1.020 Ketone Neg Bili Neg H-TSH Reviewed date:01/12/2024 08:18:40 AM Interpretation:0.91 Performing Lab: Notes/Report: TSH 0.91 0.465-4.68 uIU/mL P-Culture, Urine Reviewed date:10/30/2024 09:21:08 AM Interpretation:suggest contamination, recollection recommended Performing Lab: Notes/Report: Test performed by [facility] [address] [place] [address] , [address], [place] [address] Adrian Gilbert MD, Rn Rehab CLIA: [id number] Specimen Source Urine - Void Culture, Urine See Below Final Report : 10,000-15,000 CFU/ml Mixed Gram Positive and Negative Organisms Three or more organisms present likely representing contamination during collection by patient's urogenital, skin, and/or fecal abdi. Organism identification and sensitivity assessment are not recommended. Specimen recollection is recommended. H-BMP Reviewed date:01/12/2024 08:19:05 AM Interpretation: Performing Lab: Notes/Report: NA 137 136-145 mmol/L K 3.6 3.5-5.1 mmoL/L CL 103 98-107 mmol/L CO2 26 22.0-30.0 mmol/L GAP 11.6 5-15 mEq/L BUN 65 7-17 mg/dl CREATT 3.10 0.52-1.04 mg/dl Delta: 4.40 on 01/11/24 CRCLE 17 50-200 mL/min GFRAA 17 >60 ML/MIN Delta: 12 on 01/11/24 EGFR 14 >60 ml/min GLU 119 74-100 mg/dl CA 8.8 8.4-10.2 mg/dl M-Complete Blood Count Man D if Reviewed date:01/12/2024 08:20:02 AM Interpretation: Performing Lab: Notes/Report: WBC 8.4 4.8-10.8 K/mm3 RBC 3.06 4.20-5.40 M/mm3 HGB 12.1 12.2-16.2 g/dL HCT 30.6 37.0-47.0 % MCV 100.2 81-99 fl MCH 39.6 27.0-31.2 pg MCHC 39.5 31.8-35.4 g/dL RDW 13.6 11.5-17.5 % PLT 159 142-424 K/mm3 Delta: 218 on 01/11/24-1140 MPV 9.5 7.4-10.4 fl NE% 65.4 37.0-80.0 % LY% 22.7 10-50 % MO% 7.6 1.7-9.3 % EO% 3.7 0.1-12.0 % BA% 0.6 0.1-2.0 % NE# 5.5 1.8-7.8 K/mm3 LY# 1.9 0.7-4.5 K/mm3 MO# 0.6 0.1-1.0 K/mm3 EO# 0.3 0.0-0.4 K/mm3 BA# 0.1 0-0.2 K/mm3 MDIFF MANUAL DIFFERENTIAL MANUAL DIFF TCC 100 NEUT%M 68 42-76 % LYMPH%M 21 10-50 % MONO%M 6 2-9 % EOS%M 5 0-3 % PLTE Normal MACROC 1+ Urinalysis - Inhouse Reviewed date:11/02/2024 09:12:59 AM Interpretation: Performing Lab: Notes/Report: Color/Clarity yellow Leuk trace Nitrite neg Urobili 3.2 Protein neg pH 5.5 Blood neg Sp. Gr. 1.020 Ketone neg Bili neg Gluc neg H-BMP Reviewed date:01/13/2024 09:38:50 AM Interpretation: Performing Lab: Notes/Report: NA 141 136-145 mmol/L K 3.8 3.5-5.1 mmoL/L CL 112 98-107 mmol/L CO2 27 22.0-30.0 mmol/L GAP 5.8 5-15 mEq/L BUN 46 7-17 mg/dl Delta: 65 on 01/12/24 CREATT 1.60 0.52-1.04 mg/dl Delta: 3.10 on 01/12/24 CRCLE 33 50-200 mL/min GFRAA 37 >60 ML/MIN Delta: 17 on 01/12/24 EGFR 31 >60 ml/min GLU 146 74-100 mg/dl Delta: 119 on 01/12/24 CA 8.8 8.4-10.2 mg/dl P-Culture, Urine Reviewed date:11/02/2024 11:46:28 AM Interpretation:No Significant Growth Performing Lab: Notes/Report: Test performed by [facility] [address] [place] [address] , [address], [place] [address] Adrian Gilbert MD, Rn Rehab CLIA: [id number] Specimen Source Urine - Void Culture, Urine See Below Final Report : No Significant Growth Urinalysis - Inhouse Reviewed date:11/11/2024 10:25:47 AM [...] 34 Performing Lab: Notes/Report: Test performed by [facility] [address] [place] [address] , [address], [place] [address] Adrian Gilbert MD, Rn Rehab CLIA: [id number] Sodium 143 135-145 mmol/L Potassium 4.1 3.5-5.3 [...] Interpretation:Normal Performing Lab: Notes/Report: Test performed by [facility] [address] [place] [address] , [address], [place] [address] Adrian Gilbert MD, Rn Rehab CLIA: [id number] TSH reflex to FT4 2.68 0.43-5.25 mU/L TEN-UTI panel Reviewed date:11/14/2024 10:18:38 AM Interpretation:E. Coli-sensitive Performing Lab: Notes/Report: E. Coli-sensitive TEN-UTI panel Reviewed date:11/14/2024 10:18:38 AM Interpretation:E. Coli-sensitive Performing Lab: Notes/Report: E. Coli-sensitive Influenza Screen (in house) Reviewed date:11/17/2024 12:47:12 [...] - 38 plat 199 100 - 400 P-Basic Metabolic Panel (BMP ) Reviewed date:01/24/2024 09:19:13 AM Interpretation:gluc 100, bun 30, Cr 1.63, gfr 31 Performing Lab: Notes/Report: Test performed by [facility] [address] [place] [address] , [address], [place] [address] Adrian Gilbert MD, Rn Rehab CLIA: [id number] Sodium 143 135-145 mmol/L Potassium 4.3 3.5-5.3 mmol/L Chloride 107 97-108 mmol/L CO2 25 22-32 mmol/L Glucose 100 65-99 mg/dL BUN 30 8-23 mg/dL Creatinine 1.63 0.50-1.00 mg/dL Calcium 9.9 8.6-10.4 mg/dL eGFR by Creatinine 31 >59 mL/min/1.73m2 Urinalysis - Inhouse Reviewed date:03/13/2024 03:07:45 PM Interpretation: Performing Lab: Notes/Report: Color/Clarity orange/clear Leuk Neg Nitrite Pos Urobili 16 Protein Trace pH 5.0 Blood Neg Sp. Gr. 1.015 Ketone Neg Bili Neg Gluc Trace Urinalysis - Inhouse Reviewed date:03/29/2024 09:34:52 AM Interpretation: Performing Lab: Notes/Report: Color/Clarity yellow/clear Leuk trace Nitrite neg Urobili 3.2 Protein trace pH 5.5 Blood neg Sp. Gr. 1.025 Ketone neg Bili neg Gluc neg CBC Venipuncture (in house) Reviewed date:04/03/2024 11:32:47 AM Interpretation:Normal Performing Lab: Notes/Report: Normal wbc 7.0 3.5 - 10 lymph 24.1 15 - 50 mid 5.3 2 - 15 gran 70.6 35 - 80 rbc 3.91 3.5 - 5.5 hgb 13.0 11.5 - 16.5 hct 40.1 35 - 55 mcv 102.6 75 - 100 mch 33.3 25 - 35 mchc 32.4 31 - 38 platlet 217 100 - 400 P-Basic Metabolic Panel (BMP ) Reviewed date:04/03/2024 11:32:47 AM Interpretation:gluc 131, bun 37, Cr 1.31, gfr 40 Performing Lab: Notes/Report: Test performed by [facility] [address] [place] [address] , [address], [place] [address] Adrian Gilbert MD, Rn Rehab CLIA: [id number] Sodium 141 135-145 mmol/L Potassium 4.4 3.5-5.3 mmol/L Chloride 107 97-108 mmol/L CO2 23 22-32 mmol/L Glucose 131 65-99 mg/dL BUN 37 8-23 mg/dL Creatinine 1.31 0.50-1.00 mg/dL Calcium 9.8 8.6-10.4 mg/dL eGFR by Creatinine 40 >59 mL/min/1.73m2 Miscell Ref Lab Test Reviewed date:04/05/2024 11:25:54 AM Interpretation:[place]rivar[place]am 4.43 Performing Lab: Notes/Report: [place] 4.43 Miscell Ref Lab Test Reviewed date:04/05/2024 11:25:54 AM Interpretation:[place] 4.43 Performing Lab: Notes/Report: [place] 4.43 TEN-UTI panel Reviewed date:03/30/2024 09:30:30 AM Interpretation:Abnormal Performing Lab: Notes/Report: Abnormal Urinalysis - Inhouse Reviewed date:05/10/2024 01:10:57 PM Interpretation: Performing Lab: Notes/Report: Color/Clarity yellow/clear Leuk trace Nitrite neg Urobili 3.2 Protein neg pH 5.5 Blood neg Sp. Gr. 1.020 Ketone neg Bili neg Gluc neg P-Basic Metabolic Panel (BMP ) Reviewed date:05/10/2024 01:09:01 PM Interpretation:gluc 111, bun 36, creat 1.42, gfr 36 Performing Lab: Notes/Report: Test performed by [facility] , [address], [place] [address] Adrian Gilbert MD, Rn Rehab CLIA: [id number] Sodium 143 135-145 mmol/L Potassium 4.3 3.5-5.3 mmol/L Chloride 103 97-108 mmol/L CO2 28 22-32 mmol/L Glucose 111 65-99 mg/dL BUN 36 8-23 mg/dL Creatinine 1.42 0.50-1.00 mg/dL Calcium 9.9 8.6-10.4 mg/dL eGFR by Creatinine 36 >59 mL/min/1.73m2 TEN-UTI panel Reviewed date:05/11/2024 02:55:20 PM Interpretation:Abnormal Performing Lab: Notes/Report: Abnormal LC-Brivaracetam level serum Reviewed date:07/06/2024 08:50:12 AM Interpretation:3.86 Performing Lab:[facility], [address] [place] [id number], Phone - [phone], Director - Arielle Notes/Report: [place]riv[place]am 3.86 0.20 - 2.00 ug/mL This test was developed and its performance characteristics determined by [facility]. It has not been cleared or approved by the Food and Drug Administration. Urinalysis - Inhouse Reviewed date:08/11/2024 04:35:51 PM Interpretation: Performing Lab: Notes/Report: Color/Clarity yellow Leuk trace Nitrite neg Urobili 3.2 Protein neg pH 5.5 Blood neg Sp. Gr. 1.020 Ketone neg Bili neg Gluc neg H-COVIDPCR Reviewed date:01/12/2024 04:27:09 PM Interpretation:Negative Performing Lab: Notes/Report: Unknown Is this the 1st COVID test for the patient? Unknown Does the patient have COVID symptoms? Yes Is the patient employed in healthcare? Unknown Is patient an [employer] employee? N Is patient currently hospitalized? Yes Is patient currently in ICU? Unknown Date of Symptom onset Is patient a resident in a congregate care setting? Unknown COVIDBV RESULT NEGATIVE H-CBC Reviewed date:01/13/2024 09:38:50 AM Interpretation: Performing Lab: Notes/Report: WBC 7.1 4.8-10.8 K/mm3 RBC 3.43 4.20-5.40 M/mm3 HGB 11.8 12.2-16.2 g/dL HCT 35.3 37.0-47.0 % MCV 103.0 81-99 fl MCH 34.3 27.0-31.2 pg MCHC 33.3 31.8-35.4 g/dL RDW 13.5 11.5-17.5 % PLT 168 142-424 K/mm3 MPV 9.5 7.4-10.4 fl NE% 59.2 37.0-80.0 % LY% 27.4 10-50 % MO% 7.7 1.7-9.3 % EO% 5.1 0.1-12.0 % BA% 0.6 0.1-2.0 % NE# 4.2 1.8-7.8 K/mm3 LY# 1.9 0.7-4.5 K/mm3 MO# 0.6 0.1-1.0 K/mm3 EO# 0.4 0.0-0.4 K/mm3 BA# 0.1 0-0.2 K/mm3 H-BMP Reviewed date:01/14/2024 08:13:38 AM Interpretation: Performing Lab: Notes/Report: NA 141 136-145 mmol/L K 4.3 3.5-5.1 mmoL/L CL 109 98-107 mmol/L CO2 28 22.0-30.0 mmol/L GAP 8.3 5-15 mEq/L BUN 31 7-17 mg/dl Delta: 46 on 01/13/24-539 CREATT 1.40 0.52-1.04 mg/dl CRCLE 38 50-200 mL/min GFRAA 43 >60 ML/MIN EGFR 36 >60 ml/min GLU 134 74-100 mg/dl CA 10.0 8.4-10.2 mg/dl M-Miscellaneous Test Reviewed date:04/05/2024 11:34:56 AM Interpretation: Performing Lab: Notes/Report: BRIVARACETAM LC#[id number] MISCT SCANNED IMAGE IMAGE SENT TO MEDICAL RECORDS TO BE SCANNED Urinalysis - Inhouse Reviewed date:11/17/2024 12:41:29 PM Interpretation: Performing Lab: Notes/Report: Color/Clarity jose luis/clear Leuk Neg Nitrite Neg Urobili 3.2 Protein Trace pH 5.5 Blood Neg Sp. Gr. 1.015 Ketone Neg Bili Neg Gluc Neg TEN-UTI panel Reviewed date:03/16/2024 10:38:04 AM Interpretation: Performing Lab: Notes/Report: Medications Medication SIG (Take, Route, Frequency, Duration) Notes Start Date End Date Status LORazepam 1 MG 1 tab(s) orally 2 ti mes a day for 30 day(s) 11/20/2024 Active Trulance 3 mg TAKE ONE TABLET BY M OUTH EVERY DAY for 90 Active Walker - as directed Active oxyCODONE HCl 10 MG 1 tab(s) orally 2 ti mes a day for 30 days 09/26/2024 Active Lactase - as directed Active Vitamin D3 50 MCG (1999 UT) 1 tab(s) ora lly twice a day Active Memantine HCl 5 mg TAKE ONE TABLET BY M OUTH TWICE DAILY for 90 Active tiZANidine HCl 2 MG 1 tab(s) orally ever y 8 hours as needed Active Briviact 75 MG 1 tab(s) orally Twic e a day for 90 days 10/18/2024 Active Vitamin B 12 500 MCG 1 tab(s) orally onc e a day 03/06/2020 Active Levothyroxine Sodium 25 MCG 1 tab(s) ora lly once a day for 90 days Active Myrbetriq 50 mg 1 tablet Orally Once a day for 90 days Active DULoxetine HCl 60 mg TAKE ONE CAPSULE BY MOUTH EVERY DAY for 30 Active Gabapentin 300 MG 2 capsules orally 2 times daily 07/28/2024 Active Tamsulosin HCl 0.4 MG 1 capsule Orally O nce a day for 30 day(s) Active Furosemide 20 mg 1 tablet Orally Once a day for 90 days Active Phenazopyridine HCl 200 MG 1 tablet afte r meals Orally Three times a day for 2 day(s) Active Docusate Sodium 250 mg TAKE ONE CAPSULE BY MOUTH TWICE DAILY NEEDED for 30 Active Wheelchair - as directed Activ e Commode Bedside - as directed Active levoFLOXacin 500 MG 1 tablet Orally Once a day for 7 days 11/17/2024 Active hydrOXYzine HCl 25 MG 1 tablet as needed Orally Two times a day 11/15/2024 Active Azelastine HCl 137 MCG/SPRAY 2 puffs (1 spray in each nostril) Nasally Twice a day 06/29/2024 Active MiraLax 17 GM/SCOOP 1 scoop mixed with 8 ounces of fluid Orally Once a day 06/29/2024 Active Celecoxib 100 mg 1 capsule Orally Onc e a day for 90 days Active Meclizine HCl 25 MG 1 tablet as needed Orally every 12 hrs for 90 days Active Donepezil HCl 5 mg TAKE ONE TABLET BY M OUTH EVERY DAY AT BEDTIME for 90 Active Esomeprazole Magnesium 40 mg TAKE ONE CA PSULE BY MOUTH EVERY DAY for 90 Active Alendronate Sodium 70 mg TAKE ONE TABLET BY MOUTH ONCE A WEEK for 84 Active Albuterol Sulfate HFA 108 (90 Base) MCG/ACT 2 puff(s) inhaled qid and q2h prn for 30 days 04/14/2022 Active Irbesartan-hydroCHLOROthiazi de 300-12.5 MG TAKE ONE TABLET BY MOUTH EVERY DAY for 90 Active Lumbar Back Brace/Support Pad - as directed 12/11/2022 Active Lactulose 10 GM/15ML TAKE 15ML BY MOUTH ONCE DAILY NEEDED for 30 Active Triamcinolone Acetonide 0.1 % 1 application Externally Twice a day 02/24/2024 Active Diclofenac Sodium 1 % 4 grams Externally four times a day as needed 03/28/2024 Active Immunizations Vaccine Route Administration Date Status Comme nts COVID 19 Moderna Unknown 08/14/2020 Administered COVID 19 Moderna Unknown 09/11/2020 Administered COVID 19 Moderna Unknown 05/09/2021 Administered Fluzone High Dose (65yr and older) IM Intramuscular 03/18/2015 Administered Given by Josie alejandra Fluzone High Dose (65yr and older) IM Intramuscular 04/27/2016 Administered Fluzone High Dose (65yr and older) IM Intramuscular 04/19/2017 Administered Fluzone High Dose (65yr and older) IM Intramuscular 03/17/2018 Administered Fluzone High Dose (65yr and older) IM Intramuscular 04/12/2023 Administered Fluzone High Dose (65yr and older) IM Intramuscular 03/28/2024 Administered Fluzone Quad (6months&older) IM Intramuscular 08/31/2019 Administered PNEUMOVAX 23 VACCINE Unknown 06/11/2007 Administered PNEUMOVAX 23 VACCINE IM Intramuscular 05/16/2020 Administered Prevnar (PCV13) IM Intramuscular 04/27/2016 Administered Prevnar (PCV20) IM Intramuscular 04/12/2023 Administered xFlu shot- 6months-36 months of qeb-SQWX-VAPI-triva lent Unknown 03/22/2012 Administered xFluzone (6mos and older)-trivalent Unknown 06/11/2007 Administered xFluzone (6mos and older)-trivalent Unknown 05/21/2008 Administered xFluzone High Dose-private (65yr&older) IM Intramuscular 04/10/2014 Administered Problems Problem Type SNOMED Code ICD Code Onset Dates Problem Status W/U Status Risk Notes Problem 38363042 Essential (prima ry) hypertension (I10) Active confirmed Problem 49340434 Essential hypert ension (I10) Active confirmed Problem 639379809 Hypertriglycerid emia (E78.1) Active confirmed Problem 07911322 Anxiety (F41.9) Active confirmed Problem 31220363 Dysuria (R30.0) Active confirmed Problem 900296655 Depression with anxiety (F41.8) Active confirmed Problem 75077158 Memory loss (R41.3) Active confirmed Problem 463380052 Seizure disorder (G40.909) Active confirmed Problem 227625949694095 Lumbago with sci atica, right side (M54.41) Active confirmed Problem 97610012 Other fatigue (R53.83) Active confirme d Problem 198114722 Lumbago with sci atica, left side (M54.42) Active confirmed Problem 20809313 Urge incontinenc e (N39.41) Active confirmed Problem 606216676 Frequency of micturition (R35.0) Active confirmed Problem 301673741 Other malaise (R53.81) Active confirm ed Problem 38257993 Other chronic pa in (G89.29) Active confirmed Problem 376074104 Lumbosacral radiculopathy due to degenerative joint disease of spine (M47.27) Active confirmed Problem 250105348 Acquired hypothyroidism (E03.9) Active confirmed Problem 685748954 Bilateral low ba ck pain without sciatica (M54.5) Active confirmed Problem 52281539 Spinal stenosis, lumbar (724.02) Active confirmed Problem 64954653 Kidney stone (N20.0) Active confirmed Problem 690740784 Gastroesophageal reflux disease, esophagitis presence not specified (K21.9) Active confirmed Problem 34443817 Osteoporosis (M81.0) Active confirmed Problem 30733531 Ataxia (R27.0) Active confirmed Problem 893020471 Altered mental s tatus, unspecified altered mental status type (R41.82) Active confirmed Problem 333310234 Frequent falls (R29.6) Active confirm ed Problem 499837663 BMI 34.0-34.9,ad ult (Z68.34) Active confirmed Problem 29543024 Dementia without behavioral disturbance (F03.90) Active confirmed Problem 16334364 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) Active confirmed Problem 132931504 Osteoarthritis o f lumbar spine, unspecified spinal osteoarthritis complication status (M47.816) Active confirmed Problem 698259777 Hearing loss of left ear, unspecified hearing loss type (H91.92) Active confirmed Problem 256181935 Seasonal allergi c rhinitis, unspecified trigger (J30.2) Active confirmed Problem 28478012 Allergic rhiniti s, unspecified seasonality, unspecified trigger (J30.9) Active confirmed Problem 736078061 Stage 3b chronic kidney disease (N18.32) Active confirmed Problem 223492558 Low back pain, unspecified (M54.50) Active confirmed Problem 046651067 Stage 3a chronic kidney disease (CKD) (N18.31) Active confirmed Problem 398205123 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) Active confirmed Vital Signs Heart Rate 102 /min 11/17/2024 Blood pressure diastolic 60 mm Hg 11/17/2024 Height 62 in 11/17/2024 Blood pressure systolic 164 mm Hg 11/17/2024 Weight 000 lbs 11/17/2024 BMI 34.56 kg/m2 11/10/2024 Encounters Encounter Location Date Provider Diagnosis [facility] [address] [facility] [address] [place], [place] [id number] 01/21/2024 Triston Durham RUFINA (acute kidney in jury) N17.9 and Acute UTI N39.0 [facility] [address] [facility] [address] [place], [place] [id number] 02/16/2024 Triston Durham Acute UTI N39.0 and Renal insufficiency N28.9 [facility] [address] [facility] [address] [place] [id number] 02/24/2024 Triston Durham Kidney stone N20.0 ; Acute UTI N39.0 ; RUFINA (acute kidney injury) N17.9 and Irritant contact dermatitis, unspecified trigger L24.9 [facility] [address] [facility] [address] [place], [place] [id number] 03/10/2024 Triston Durham Acute UTI N39.0 [facility] [address] [facility] [address] [place] [id number] 03/28/2024 Triston Durham Urinary frequency R3 5.0 ; Stage 3a chronic kidney disease (CKD) N18.31 ; Seizure disorder G40.909 and Pain in right shoulder M25.511 [facility] [address] [facility] [address] [place], [place] [id number] 05/09/2024 Triston Durham Pyuria R82.[address] age 3b chronic kidney disease N18.32 [facility] [address] [facility] [address] [place] [id number] 06/29/2024 Triston Durham Seizure disorder G40 .909 ; Seasonal allergic rhinitis, unspecified trigger J30.2 and Chronic idiopathic constipation K59.04 [facility] [address] [place], [place] [id number] 08/11/2024 Triston Durham Fatigue, unspecified type R53.83 ; Anorexia R63.0 ; Stage 3b chronic kidney disease N18.32 ; Open wound of right forearm, initial encounter S51.801A ; Pyuria R82.81 ; Acute abdominal pain R10.9 ; Urinary tract infection without hematuria, site unspecified N39.0 and Urinary frequency R35.0 [facility] [address] [address] [place], [place] [id number] 09/06/2024 Triston Durham Frequent UTI N39.0 [facility] [address] [facility] [address] [place], [place] [id number] 10/25/2024 Triston Durham Acute UTI N39.0 ; Se izure disorder G40.909 ; Acquired hypothyroidism E03.9 ; Anxiety F41.9 ; Essential (primary) hypertension I10 ; Low back pain, unspecified M54.50 ; Dementia without behavioral disturbance F03.90 and BMI 34.0-34.9,adult Z68.34 [facility] [address] [facility] [address] [place], [place] [id number] 10/31/2024 Triston Durham Urinary tract infect ion without hematuria, site unspecified N39.0 [facility] [address] [facility] [address] [place], [place] [id number] 11/10/2024 Triston Durham Frequent UTI N39.0 ; Fatigue, unspecified type R53.83 and Stage 3b chronic kidney disease N18.32 [facility] [address] [place], [place] [id number] 11/17/2024 Triston Durham Acute UTI N39.0 and Fever, unspecified R50.9 [facility] [address] [place], [place] [id number] 01/03/2024 Triston Durham Low back pain, unspecified M54.50 [facility] [address] [facility] [address] [place] [id number] 01/24/2024 Triston Durham [facility] [address] [place] [id number] 02/01/2024 Triston Durham [facility] [address] [place] [id number] 02/02/2024 Triston Durham Depression with anxi ety F41.8 and Low back pain, unspecified M54.50 [facility] [address] [place] [id number] 02/18/2024 Triston Durham [facility] [address] [place] [id number] 02/21/2024 Triston Durham [facility] [address] [place] [id number] 02/25/2024 Triston Durham [facility] [address] [place] [id number] 03/07/2024 Triston Durham [facility] [address] [place] [id number] 03/16/2024 Triston Durham [facility] [address] [place] [id number] 03/30/2024 Leena Crowdy [facility] [address] [place] [id number] 04/03/2024 Triston Durham [facility] [address] [place] [id number] 05/08/2024 Triston Durham Depression with anxi ety F41.8 [facility] [address] [place] [id number] 05/10/2024 Triston Durham [facility] [address] [place] [id number] 06/15/2024 Triston Durham [facility] [address] [place] [id number] 07/06/2024 Triston Durham [facility] [address] [place] [id number] 07/18/2024 Triston Durham Low back pain, unspecified M54.50 [facility] [address] [place] [id number] 07/27/2024 Triston Durham [facility] [address] [place] [id number] 08/12/2024 Triston Durham [facility] [address] [place] [id number] 08/17/2024 Triston Durham Depression with anxi ety F41.8 and Low back pain, unspecified M54.50 [facility] [address] [place] [id number] 09/26/2024 Triston Durham Low back pain, unspecified M54.50 [facility] [address] [place] [id number] 10/18/2024 Triston Durham Seizure disorder G40 .909 [facility] [address] [place] [id number] 10/30/2024 Triston Durham [facility] [address] [place] [id number] 11/14/2024 Triston Durham [facility] [address] [place] [id number] 11/15/2024 Triston Durham [facility] [address] [place] [id number] 11/20/2024 Triston Durham Depression with anxi ety F41.8 [facility] [address] [place] [id number] 11/22/2024 Triston Durham Assessments Encounter Date Diagnosis (ICD Code) Assessment Notes Treatment Notes Treatment Clinical Notes Section Notes 01/03/2024 Low back pain, unspecified (ICD-10 - M54.50) 01/21/2024 Acute UTI (ICD-10 - N39.0) 01/21/2024 RUFINA (acute kidney injury) (ICD-10 - N17.9) 02/02/2024 Depression with anxiety (ICD-10 - F41.8) 02/16/2024 Renal insufficiency (ICD-10 - N28.9) 02/16/2024 Acute UTI (ICD-10 - N39.0) Patient unable to provide a urine sample today in office. Will start treatment for presumed UTI due to symptoms and elevated WBC count and can collect urine sample at a later time 02/24/2024 Kidney stone (ICD-10 - N20.0) Patient to follow up with urology at [facility] for further treatment of her kidney stone 02/24/2024 Acute UTI (ICD-10 - N39.0) 03/10/2024 Acute UTI (ICD-10 - N39.0) 03/28/2024 Urinary frequency (ICD-10 - R35.0) 03/28/2024 Stage 3a chronic kidney disease (CKD) (ICD-10 - N18.31) 05/08/2024 Depression with anxiety (ICD-10 - F41.8) 05/09/2024 Pyuria (ICD-10 - R82.81) 05/09/2024 Stage 3b chronic kidney disease (ICD-10 - N18.32) 06/29/2024 Seizure disorder (ICD-10 - G40.909) 06/29/2024 Seasonal allergic rhinitis, unspecified trigger (ICD-10 - J30.2) 07/18/2024 Low back pain, unspecified (ICD-10 - M54.50) 08/11/2024 Anorexia (ICD-10 - R63.0) 08/11/2024 Fatigue, unspecified type (ICD-10 - R53.83) 09/06/2024 Frequent UTI (ICD-10 - N39.0) 09/26/2024 Low back pain, unspecified (ICD-10 - M54.50) 10/18/2024 Seizure disorder (ICD-10 - G40.909) 08/17/2024 Depression with anxiety (ICD-10 - F41.8) 10/25/2024 Seizure disorder (ICD-10 - G40.909) 10/25/2024 Acute UTI (ICD-10 - N39.0) 10/31/2024 Urinary tract infection without hematuria, site unspecified (ICD-10 - N39.0) 11/10/2024 Frequent UTI (ICD-10 - N39.0) 11/10/2024 Fatigue, unspecified type (ICD-10 - R53.83) 11/17/2024 Fever, unspecified (ICD-10 - R50.9) 11/17/2024 Acute UTI (ICD-10 - N39.0) Urine PCR panel reviewed in office today with patient's daughter. Patient seems to have a partially treated infection 11/20/2024 Depression with anxiety (ICD-10 - F41.8) 11/10/2024 Stage 3b chronic kidney disease (ICD-10 - N18.32) 10/25/2024 Acquired hypothyroidism (ICD-10 - E03.9) 08/17/2024 Low back pain, unspecified (ICD-10 - M54.50) 08/11/2024 Stage 3b chronic kidney disease (ICD-10 - N18.32) 06/29/2024 Chronic idiopathic constipation (ICD-10 - K59.04) 03/28/2024 Seizure disorder (ICD-10 - G40.909) 02/24/2024 RUFINA (acute kidney injury) (ICD-10 - N17.9) 02/02/2024 Low back pain, unspecified (ICD-10 - M54.50) 02/24/2024 Irritant contact dermatitis, unspecified trigger (ICD-10 - L24.9) 03/28/2024 Pain in right shoulder (ICD-10 - M25.511) 08/11/2024 Open wound of right forearm, initial encounter (ICD-10 - S51.801A) 10/25/2024 Anxiety (ICD-10 - F41.9) 08/11/2024 Pyuria (ICD-10 - R82.81) 10/25/2024 Essential (primary) hypertension (ICD-10 - I10) 08/11/2024 Acute abdominal pain (ICD-10 - R10.9) 10/25/2024 Low back pain, unspecified (ICD-10 - M54.50) 10/25/2024 Dementia without behavioral disturbance (ICD-10 - F03.90) 08/11/2024 Urinary tract infection without hematuria, site unspecified (ICD-10 - N39.0) 08/11/2024 Urinary frequency (ICD-10 - R35.0) 10/25/2024 BMI 34.0-34.9,adult (ICD-10 - Z68.34) 02/24/2024 Other Labs and radiology reports from last week reviewed in office today Plan Of Treatment No Information Insurance Providers Payer Name Payer Address Payer Phone Subscriber Number Group Number Insured Name Patient Relationship to Insured Coverage Start Date Coverage End Date MEDICARE PART B [address] [address] [place] [address] [id number] Maura Carrero Self - patient is the insured MED[employer] [address] [place] [id number] Maura Carrero Self - patient is the insured Medications Administered Medication Instructions Date of Administration Dosage Notes Depo- Medrol 40 mg/ml 01/29/2014 1 mL Medical (General) History Medical History History ICD Code Hypertension Chronic Back Pain 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
--- OUTSIDE RECORDS SUMMARY | 2024-12-14 14:44 | XMS_ITS | Clinical Summary ---
Author Organization [facility] Address [address] [place] [address] Care Team Providers Care Environmental Protection Specialist Name Role Phone Triston Campos MD Primary Care Provider + [phone] Allergies Active Allergy Reactions Criticality Noted Date Comments Codeine Other - please docum ent in the comment field Low 02/18/2024 Family states it takes a long time for it to get out of system and causes drowsiness. Medications alendronate (Fosamax) 70 MG tablet Take 1 tablet (70 mg) by mouth every 7 (seven) days. Take in the morning with a full glass of water, on an empty stomach, and do not take anything else by mouth or lie down for the next 30 min. Active brivaracetam (Briviact) 75 MG tablet tablet Take 1 tablet (75 mg) by mouth 2 (two) times a day. Active docusate sodium (Colace) 250 MG capsule Take 1 capsule (250 mg) by mouth 1 (one) time each day if needed for constipation. Active donepezil (Aricept) 5 MG tablet Take 1 tablet (5 mg) by mouth every night. Active esomeprazole (NexIUM) [address] capsule Take 1 capsule (40 mg) by mouth 1 (one) time each day before breakfast. Do not open capsule. Active furosemide (Lasix) 20 MG tablet Take 1 tablet (20 mg) by mouth 1 (one) time each day if needed. Active gabapentin (Neurontin) 300 MG capsule Take 2 capsules (600 mg) by mouth 2 (two) times a day. Active irbesartan-hydr oCHLOROthiazide (Avalide) 300-12.5 MG tablet Take 1 tablet by mouth 1 (one) time each day. Active lactulose (Chronulac) 10 GM/15ML solution Take 30 mL (20 g) by mouth 1 (one) time each day if needed. Active levothyroxine (Synthroid, Levoxyl) 25 MCG tablet Take 1 tablet (25 mcg) by mouth 1 (one) time each day before breakfast. Active LORazepam (Ativan) 1 MG tablet Take 1 tablet (1 mg) by mouth 2 (two) times a day. Active meclizine (Antivert) 25 MG tablet Take 1 tablet (25 mg) by mouth 2 (two) times a day. Active mirabegron ER (Myrbetriq) 50 MG tablet Take 1 tablet (50 mg) by mouth 1 (one) time each day. Active oxyCODONE (Roxicodone) 10 MG immediate release tablet 1 tablet (10 mg) 2 (two) times a day if needed for severe pain. Active Plecanatide 3 MG tablet Take 1 mg by mouth 1 (one) time each day. Active tiZANidine (Zanaflex) 4 MG capsule Take 1 capsule (4 mg) by mouth 3 (three) times a day if needed. Active cyanocobalamin 1000 MCG tablet Take 1 tablet (1,000 mcg) by mouth 1 (one) time each day. Active cholecalciferol (D3-5) 5,000 Units tablet Take 1 tablet (5,000 Units) by mouth 1 (one) time each day. Active memantine (Namenda) 5 MG tablet Take 1 tablet (5 mg) by mouth 2 (two) times a day. Active diphenhydrAMINE (Benadryl) 12.5 MG chewable tablet Chew 1 tablet (12.5 mg) every 6 (six) hours if needed for allergies. Active phenazopyridine (Pyridium) 200 MG tablet Take 1 tablet (200 mg) by mouth 3 (three) times a day if needed for pain, discomfort or irritation. 10 tablet 4 Active celecoxib (CeleBREX) 100 MG capsule Take 1 capsule by mouth daily. 5 Active DULoxetine (Cymbalta) [address] capsule Take 1 capsule by mouth daily. Active irbesartan (Avapro) 150 MG tablet Take 1 tablet by mouth 1 time each day. Active Active Problems Problem Noted Date Diagnosed Date Sepsis 02/18/2024 Septic shock 02/18/2024 Encounters Date Type Department Care Team Description 12/12/2024 Results Follow-Up [facility] Urology [address] [place] [phone] Judie Borrero APRN 12/07/2024 11:10 AM EDT Office Visit Medical Office Building Urology [address] [facility], [address] [place] [address] Juide Borrero, DELICATESSEN DEPARTMENT MANAGER History of kidney stones (Primary Dx) 12/07/2024 9:06 AM EDT - 12/07/2024 11:59 PM EDT Hospital Encounter [facility] [address] [place] [address] History of kidney stones Discharge Disposition: Home or Self Care 12/07/2024 Travel from Last 3 Months Family History Medical History Relation Name Comments Anesthesia problems Neg Hx Malig Hyperthermia Neg Hx Social History Tobacco Use Types Packs/Day Years [...] and Family Not on file 02/21/2024 Attends Orthodoxy Services Not on file 02/20 Active Member [...] place to sleep or slept in a detention (including now)? No 02/21/2024 AUDIT-C Answer Date [...] on file Sexual Orientation Not on file Last Filed Vital Signs Vital Sign Reading Time Taken Comments Blood Pressure 166/81 12/07/2024 10:03 AM EDT Pulse 85 12/07/2024 10:03 AM EDT Temperature 36.4 C (97.5 F) 03/07/2024 3:30 PM EDT Respiratory Rate 19 03/07/2024 3:30 PM EDT Oxygen Saturation 94% 12/07/2024 10:03 AM EDT Inhaled Oxygen Concentration - - Weight 77.1 kg (170 lb) 12/07/2024 10:03 AM EDT Height 165.1 cm (5' 5 ) 12/07/2024 10:03 AM EDT Body Mass Index 28.29 12/07/2024 10:03 AM EDT Plan of Treatment Upcoming Encounters Date Type Department Care Team (Late st Contact Info) Description 06/14/2025 8:30 AM EST Appointment [facility] Ultrasound [address] [place] [address] 06/14/2025 10:30 AM EST Office Visit Medical Office Building Urology [address] [facility], [address] [place] [address] Noomen, Judie M, DELICATESSEN DEPARTMENT MANAGER [address] [place] [address] Health Maintenance Due Date Last Done Comments [facility]-Bone Density Scan 1940 [facility]-Medicare Annual Wellness (AWV) 1940 [facility]-/Child/Adol SDOH Screenings 1940 [facility]- SDOH Screenings 1956 [facility]-Adult SDOH Screenings 1956 [facility]-DTaP,Tdap,and Td Vaccines (1 - Tdap) 1957 [facility]-Zoster Vaccines (1 of 2) 1988 [facility]-RSV Vaccine: 60+ Years or (1 - 1-dose 75+ series) 2013 [id number]-99 Vaccine ( - season) 2024 05/09/2021, 09/11/2020, 08/14/2020 [facility]-Influenza Vaccine (Season Ended) 2025 08/31/2019, 03/17/2018, 04/19/2017, Additional history exists [facility]-Depression Screening 12/07/2025 12/07/2024 [facility]-Pneumococcal Vaccine: 50+ Years Completed 04/12/2023, 05/16/2020, 04/27/2016, Additional history exists [facility]-Obesity Intervention Completed 025, 06/08/2024, 02/18/2024 HPV Vaccines Aged Out No longer eligi ble based on patient's age to complete this topic [facility]-HIB Vaccines Aged Out No longer e ligible based on patient's age to complete this topic [facility]-Hepatitis A Vaccines Aged Out No longer eligible based on patient's age to complete this topic [facility]-IPV Vaccines Aged Out No longer e ligible based on patient's age to complete this topic [facility]-Rotavirus Vaccines Aged Out No lo nger eligible based on patient's age to complete this topic Medical Devices Implanted Type Area Cable Tv Installer Device Identifier Shelf Expiration Date Model / Serial / Lot Stent Ureteral Double Pigtail Pos 6fr 22cm - [id number] - [id number] Implanted:Qty: 1 on 02/18/2024 by Maru Persaud MD at [facility] [id number] 05/19/2025 [id number] / [id number] / Stent Ureteral Double Pigtail Pos 5fr 22cm - [id number] Implanted:Qty: 1 on 03/07/2024 by Maru Persaud MD at [facility] [id number] 09/01/2026 [id number] / / [id number] Procedures Procedure Name Priority Date/Time Associated Diagnosis Comments CT RENAL STONE WO IV CONTRAST Routine 12/07/2024 9:33 AM EDT History of kidney stones from Last 3 Months Results * CT Renal Stone wo IV [...] MD on 12/07/2024 12:02 PM us Judie Calderón Adair DELICATESSEN DEPARTMENT MANAGER IMG CT PROCEDURES Final Res ult from Last 3 Months Additional Health Concerns Infection Onset Date 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 Source: [facility]. 09/03/2015 02/18/2024 Insurance [place]ID[place] MEDICARE Advance Directives Documents on File Type Date Recorded Patient Ward Helper Expl anation Advance Directives and Living Will 03/07/2024 * Full Code (Latest Code Status on File) Date Activated Date Inactivated Comments 02/18/2024 7:05 PM 02/21/2024 6:15 PM Discussed wi th Daughter, Lila Go, about code status. She states that she is power of business integration manager over her mother's medical decision making. 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 Therefore, daughter states her wishes would be to be designated as Full Code. Question Answer Comments Patient has decision-making capacity? No Healthcare Surrogate: Adult child of the patient Name of Healthcare Surrogate: Lila Go Care Teams Environmental Protection Specialist Relationship Specialty Start Date End Date Triston Campos MD [address] [place] [address] PCP - General 11/15/20
--- OUTSIDE RECORDS SUMMARY | 2024-12-14 14:45 | XMS_ITS | Encounter Summary ---
Author Organization Healthcare Address [address] [place] [address] Care Team Providers Care Nuclear Radiation Engineer Name Role Phone Triston Campos MD Primary Care Provider + [phone] Encounter Details Date Type Department Care Team (Latest Contact Info) Description 12/07/2024 Travel Social History Tobacco Use Types Packs/Day Years [...] and Family Not on file 02/21/2024 Attends Sabianist Services Not on file 02/20 Active Member [...] place to sleep or slept in a senior living (including now)? No 02/21/2024 AUDIT-C Answer Date [...] Stacy Joy documented as of this encounter Plan of Treatment Upcoming Encounters Date Type Department Care Team (Late st Contact Info) Description 06/14/2025 8:30 AM EST Appointment [facility] Ultrasound [address] [place] [phone] 06/14/2025 10:30 AM EST Office Visit Medical Office Building Urology [address] [facility], [address] [place] [address] Judie Borrero M, CORPORATE AUDITOR [address] [place] [phone] documented as of this encounter Visit Diagnoses Not on filedocumented in this encounter Additional Health Concerns Infection Onset Date Last Indicated Resolved Time MRSA Comment:Added from external infection. Source: [facility]. 09/03/2015 02/18/2024 Assessment Noted Time A fall risk assessment has been complete d for the patient 12/07/2024 10:09 AM EDT A Body Mass Index follow-up plan has been documented for the patient 12/07/2024 10:32 AM EDT documented as of this encounter Care Teams Nuclear Radiation Engineer Relationship Specialty Start Date End Date Triston Campos MD [address] [address] PCP - General 11/15/20 documented as of this encounter
--- OUTSIDE RECORDS SUMMARY | 2024-12-14 14:45 | XMS_ITS | Encounter Summary ---
Author Organization Healthcare Address [address] [place] [address] Care Team Providers Care Film Cleaner Name Role Phone Triston Campos MD Primary Care Provider + [phone] Encounter Details Date Type Department Care Team (Late st Contact Info) Description 12/12/2024 Results Follow-Up [facility] Urology [address] [place] [address] NoJudie thrasher M, BOTTOM LINER [address] [place] [address] Social History Tobacco Use Types Packs/Day Years [...] and Family Not on file 02/21/2024 Attends Confucianism Services Not on file 02/20 Active Member [...] on file documented as of this encounter Plan of Treatment Upcoming Encounters Date Type Department Care Team (Late st Contact Info) Description 06/14/2025 8:30 AM EST Appointment [facility] Ultrasound [address] [place] [phone] 06/14/2025 10:30 AM EST Office Visit Medical Office Building Urology [address] [facility], [address] [place] [address] Noomen, Judie M, BOTTOM LINER [address] [place] [address] documented as of this encounter Visit Diagnoses Not on filedocumented in this encounter Additional Health Concerns Infection Onset Date Last Indicated Resolved Time MRSA Comment:Added from external infection. Source: [facility]. 09/03/2015 02/18/2024 Assessment Noted Time A fall risk assessment has been complete d for the patient 12/07/2024 10:09 AM EDT A Body Mass Index follow-up plan has been documented for the patient 12/07/2024 10:32 AM EDT documented as of this encounter Care Teams Film Cleaner Relationship Specialty Start Date End Date Triston Campos MD [address] [address] PCP - General 11/15/20 documented as of this encounter
[2024-12-14 14:59] VITALS: BP 129/70; PULSE 94; RESP 18; O2SAT 93; BMI 28.3
== END 2024-12-14 23:59 | disposition home or self-care (01) ==
LOC: SC.PAIN 13:51
PROVIDERS: PCP Family Medicine; Visit Provider Nurse Practitioner Family
DX: M46.1 Sacroiliitis, not elsewhere classified (principal); Z79.899 Other long term (current) drug therapy
CPT/HCPCS: 99212; G0463

== ENCOUNTER 2025-01-09 15:07 | Day surgery (SDC) | payer MEDICARE, MEDICAID, SELFPAY ==
[2025-01-09 15:13] VITALS: BP 118/64; PULSE 81; RESP 18; O2SAT 96; BMI 28.3
--- NOTE | 2025-01-09 15:33 | P.PCN_ITS ---
Procedure Date: 01/09/25 Time: 15:30 Anesthesiologist:: Jim Ventura CRNA Complications:: None Pre-procedure Diagnosis:: Bilateral sacroiliitis Post-procedure Diagnosis:: Same Indications for Procedure:: Patient is a very pleasant 84-year-old female who comes our clinic today for bilateral sacroiliac joint injection cortisone local anesthetic. Patient describes low lumbar back pain off the midline bilaterally. Bilateral posterior hip pain. Difficulty transitioning from sitting to standing. Difficulty with ambulation due to bilateral posterior hip pain. She rates her pain 7/10. Procedure Details:: Procedure: Bilateral sacroiliac joint injections under fluoroscopy Informed consent was obtained and the risks and benefits of the procedure were explained to the patient.~ The patient was taken to the procedure room and noninvasive monitors were placed including a noninvasive blood pressure cuff and pulse oximeter.~ The patient was placed prone on the procedure table. Both hips were cleansed using Betadine as a cleansing solution. C-arm fluoroscopy was used to view the right sacroiliac joint.~ The skin and subcutaneous tissues were anesthetized using lidocaine 1.5% and a 25-gauge needle.~ After this, a 22-gauge spinal needle was inserted under fluoroscopic guidance into the inferior aspect of the right sacroiliac joint.~ Omnipaque dye was injected and good spread was seen throughout the joint.~ After this, approximately 5 mL of bupivacaine, 0.25% and dexamethasone 5 mg was incrementally injected into the right sacroiliac joint. We then moved to the left sacroiliac joint.~ The skin and subcutaneous tissues were anesthetized using lidocaine 1.5% and a 25-gauge needle.~ After this, a 22- gauge spinal needle was inserted under fluoroscopic guidance into the inferior aspect of the left sacroiliac joint.~ Omnipaque dye was injected and good spread was seen throughout the joint. After this, approximately 5 mL of bupivacaine, 0.25% and dexamethasone 5 mg was incrementally injected into the left sacroiliac joint.~ The patient tolerated the procedure well with no complications. The patient was observed in the Pain Clinic and then was discharged home neurologically intact. Plan and Disposition:: Patient was discharged without incident.
[2025-01-09] MEDS: DEXAMETHASONE 10MG/ML 1ML VIAL 10 MG (15:37)
[2025-01-09] MEDS: LIDOCAINE 1% 5ML PF VIAL 5 ML (15:37)
[2025-01-09 15:38] VITALS: BP 118/64; PULSE 81; RESP 18; O2SAT 96
[2025-01-09] MEDS: BUPIVACAINE 0.25% 10ML INJ 25 MG IJ (15:38)
[2025-01-09 15:40] VITALS: BP 118/64; BP 126/73; PULSE 80; PULSE 81; RESP 18; O2SAT 96; O2SAT 97
== END 2025-01-09 15:40 | disposition home or self-care (01) ==
PROVIDERS: PCP Family Medicine; Visit Provider Nurse Anesthetist, Certified Registered
DX: M46.1 Sacroiliitis, not elsewhere classified (principal); F43.22 Adjustment disorder with anxiety; M47.816 Spondylosis without myelopathy or radiculopathy, lumbar region; Z87.891 Personal history of nicotine dependence; I10 Essential (primary) hypertension; E03.9 Hypothyroidism, unspecified; Z88.5 Allergy status to narcotic agent; Z79.890 Hormone replacement therapy; Z79.899 Other long term (current) drug therapy
CPT/HCPCS: 27096; J0665; J1100; J2003

== ENCOUNTER 2025-01-24 10:52 | Outpatient (POV) | payer MEDICARE, MEDICAID, SELFPAY ==
--- OUTSIDE RECORDS SUMMARY | 2024-11-17 06:00 | XMS_ITS ---
Author Organization [facility] Address [address] [place] [id number] Care Team Providers Care Supervisor Microbiology Technologists Name Role Phone [place] Triston Primary Care Provider Allergies Allergen (clinical [...] MG TAKE ONE TABLET BY MOUTH EVERY DAY; Duration: 90 Active Lactulose 10 GM/15ML TAKE 15ML BY MOUTH ONCE DAILY NEEDED; Duration: 30 Active levoFLOXacin 500 MG 1 tablet Orally Once a day; Duration: 7 days 11/17/2024 Active hydrOXYzine HCl 25 MG 1 tablet as needed Orally Two times a day 11/15/2024 Active oxyCODONE HCl 10 MG 1 tab(s) orally 2 ti mes a day; Duration: 30 days 09/26/2024 Active DULoxetine HCl 60 mg TAKE ONE CAPSULE BY MOUTH EVERY DAY; Duration: 30 Active Memantine HCl 5 mg TAKE ONE TABLET BY M OUTH TWICE DAILY; Duration: 90 Active Briviact 75 MG 1 tab(s) orally Twic e a day; Duration: 90 days 10/18/2024 Active Levothyroxine Sodium 25 MCG 1 tab(s) ora lly once a day; Duration: 90 days Active Gabapentin 300 MG 2 capsules orally 2 times daily 07/28/2024 Active Furosemide 20 mg 1 tablet Orally Once a day; Duration: 90 days Active Docusate Sodium 250 mg TAKE ONE CAPSULE BY MOUTH TWICE DAILY NEEDED; Duration: 30 Active LORazepam 1 MG 1 tab(s) orally 2 ti mes a day; Duration: 30 day(s) 08/17/2024 Active Trulance 3 mg TAKE ONE TABLET BY M OUTH EVERY DAY; Duration: 90 Active Myrbetriq 50 mg 1 tablet Orally Once a day; Duration: 90 days Active Celecoxib 100 mg 1 capsule Orally Onc e a day; Duration: 90 days Active Donepezil HCl 5 mg TAKE ONE TABLET BY M OUTH EVERY DAY AT BEDTIME; Duration: 90 Active Esomeprazole Magnesium 40 mg TAKE ONE CA PSULE BY MOUTH EVERY DAY; Duration: 90 Active Alendronate Sodium 70 mg TAKE ONE TABLET BY MOUTH ONCE A WEEK; Duration: 84 Active Triamcinolone Acetonide 0.1 % 1 application Externally Twice a day 02/24/2024 Active Diclofenac Sodium 1 % 4 grams Externally four times a day as needed 03/28/2024 Active Meclizine HCl 25 MG 1 tab(s) orally twic e a day as needed; Duration: 90 days Active Azelastine HCl 137 MCG/SPRAY 2 puffs (1 spray in each nostril) Nasally Twice a day 06/29/2024 Active MiraLax 17 GM/SCOOP 1 scoop mixed with 8 ounces of fluid Orally Once a day 06/29/2024 Active Albuterol Sulfate HFA 108 (90 Base) MCG/ACT 2 puff(s) inhaled qid and q2h prn; Duration: 30 days 04/14/2022 Active Lumbar Back Brace/Support Pad - as directed 12/11/2022 Active Vitamin D3 50 MCG (2000 UT) 1 tab(s) ora lly twice a day Active tiZANidine HCl 2 MG 1 tab(s) orally ever y 8 hours as needed Active Vitamin B 12 500 MCG 1 tab(s) orally onc e a day 03/06/2020 Active Phenazopyridine HCl 200 MG 1 tablet afte r meals Orally Three times a day; Duration: 2 day(s) Active Wheelchair - as directed Activ e Commode Bedside - as directed Active Walker - as directed Active Lactase - as directed Active Tamsulosin HCl 0.4 MG 1 capsule Orally O nce a day; Duration: 30 day(s) Active Vital Signs Weight 000 lbs 11/17/2024 Blood pressure systolic 164 mm Hg 11/18/19 25 Blood pressure diastolic 60 mm Hg 025 Heart Rate 102 /min 11/17/2024 Height 62 in 11/17/2024 Encounters Encounter Location Date Provider Diagnosis [facility] [address] [phone] 11/17/2024 Triston Campos Acute UTI N39.0 and [...] 500 MG 1 tablet Orally Once a day; Duration: 7 days 11/17/2024 Treatment Notes Assessment Notes Acute UTI Urine PCR panel revi ewed in office today with patient's daughter. Patient seems to have a partially treated infection Next Appt Details Follow Up: via phone to repo rt progress, Reason: Progress Notes * Maura CARRERODOB:1940 (84 yo F)Acc No.[id number]:11/17/2024 Progress Notes Patient: Maura SHULTZ Provider: Briana Campos M.D. :1940 A ge:84 Y S ex:Female Date:11/17/2024 Address:[facility] [place], [id number] Subjective: * Chief Complaints: * 1 . [...] Appearance: N AD, sitting in a wheelchair. H eart: R SR. L ungs: c lear to auscultation. A bdomen: b owel sounds present , soft and nontender. B ack: no CVA tenderness. Assessment: * Assessment: 1. [...] Value Reference Range r esults neg * Chelsie Apple 11/17/2024 11:2 5:19 AM > Provider reviewed [...] G 2211 Complex e/[place], [address] CAPILLARY BLOOD DRAW, 43354 CBC WITH AUTO DIFF, 78015 Flu Test- Nasal Swab, Modifiers: QW , 7[address] Urinalysis, no micro * Follow Up: v ia phone to report progress * Images: Billing Information: * Visit Code: 21355 Office Visit, Est Pt., Level 4. * Procedure Codes: G2211 Complex e/[place]. [address] CAPILLARY BLOOD DRAW. 72157 CBC WITH AUTO DIFF. 28010 Flu Test- Nasal Swab. Modifiers: QW 02289 Urinalysis, no micro. * Electronic signature of Fidelia Campos MD on 01/24/2025 at 10:57 AM EDT Sign off status: Pending * Provider: Briana Campos M.D. Date: 0 11/17/2024 Generated for Terra paredes/Hernán/Simranitting on: 0 01/24/2025 10:57 AM EDT History and Physical Notes * HPI [...]
--- OUTSIDE RECORDS SUMMARY | 2024-12-07 09:06 | XMS_ITS | Encounter Summary ---
Author Organization Healthcare Address [address] [place] [address] Care Team Providers Care Brake Engineer Name Role Phone Triston Campos MD Primary Care Provider + [phone] Reason for Referral * Imaging (Routine) - Closed Specialty Diagnoses / Procedures Referred By Khalif gr Referred To Contact Radiology Diagnoses History of kidney stones Procedures CT Renal Stone wo IV Contrast Judie Borrero APRN [address] [address] Phone: tel: fax: Referral ID Status Reason Start Date Expiration Date Visits Re quested Visits Authorized [id number] Closed 06/08/2024 12/08/2025 1 1 Reason for Visit * Imaging (Routine) - Closed Specialty Diagnoses / Procedures Referred By Khalif gr Referred To Contact Radiology Diagnoses History of kidney stones Procedures CT Renal Stone wo IV Contrast Judie Borrero APRN [address] [place] [address] Phone: tel: fax: Referral ID Status Reason Start Date Expiration Date Visits Re quested Visits Authorized [id number] Closed 06/08/2024 12/08/2025 1 1 Encounter Details Date Type Department Care Team (Latest Contact Info) Description 12/07/2024 9:06 AM EDT - 12/07/2024 11:59 PM EDT Hospital Encounter [facility] [address] [place] [address] History of kidney stones Discharge Disposition: Home or Self Care Social History Tobacco Use Types Packs/Day Years Used Date Smoking Tobacco: Former Cigarettes Smokeless Tobacco: Never Comments:Smoked for about 25 yrs. 3 ppd at times. Quit 38 yrs ago. Alcohol Use Standard Drinks/Week Comments Not Currently 0 (1 standard drink = 0.6 oz pur e alcohol) Humiliation, Afraid, Rape, a nd Kick questionnaire Answer Date Recorded Within the last year, have y ou been afraid of your partner or ex-partner? Patient unable to answer 02/21/2024 Within the last year, have y ou been humiliated or emotionally abused in other ways by your partner or ex-partner? Patient unable to answer 02/21/2024 Within the last year, have y ou been kicked, hit, slapped, or otherwise physically hurt by your partner or ex-partner? Patient unable to answer 02/21/2024 Within the last year, have y ou been raped or forced to have any kind of sexual activity by your partner or ex-partner? Patient unable to answer 02/21/2024 Social Connection and Isolation Panel Answer Date Recorded Frequency of Communication with Friends and Fami ly Not on file 02/21/2024 Frequency of Social Gatherings with Friends and Family Not on file 02/21/2024 Attends Jain Services Not on file 02/20 Active Member of Clubs or Organizations Not on f ile 02/21/2024 Attends Club or Organization Meetings Not on velia e 02/21/2024 Are you , , di vorced, , never , or living with a partner? 02/21/2024 PHQ-2 Answer Date Recorded Patient Health Questionnaire-2 Score 0 12/07/2024 Hunger Vital Sign Answer Date Recorded Within the past 12 months, y ou worried that your food would run out before you got the money to buy more. Never true 02/21/20 24 Within the past 12 months, t he food you bought just didn't last and you didn't have money to get more. Never true 02/21/2024 PRAPARE - Transportation Answer Date Re corded In the past 12 months, has l ack of transportation kept you from medical appointments or from getting medications? No 02/02 In the past 12 months, has l ack of transportation kept you from meetings, work, or from getting things needed for daily living? No 02/21/2024 Housing Stability Vital Sign Answer [place] e Recorded In the last 12 months, was t here a time when you were not able to pay the mortgage or rent on time? No 02/21/2024 In the last 12 months, how many places have you lived? 1 02/21/2024 In the last 12 months, was t here a time when you did not have a steady place to sleep or slept in a residential (including now)? No 02/21/2024 AUDIT-C Answer Date Recorded Q1: How often do you have a drink containing alc ohol? Never 12/07/2024 Average Number of Drinks Not on file 025 Q3: How often do you have si x or more drinks on one occasion? Never 12/07/2024 Comments No Sex and Gender Information Value Date Recorded Sex Assigned at Not on file Legal Sex Female 8:11 PM EDT Gender Identity Not on file Sexual Orientation Not on file documented as of this encounter Functional Status * Over the past 2 weeks, how often have you been bothered by any of the following problems? Question Answer Date of Assessment Author Little interest or pleasure in doing things Not at all 12/07/2024 10:09 AM WILLT Stacy Joy Feeling down, depressed, or hopeless Not at all 12/07/2024 10:09 AM EDT Stacy Joy Patient Health Questionnaire -2 Score 0 12/07/2024 10:09 AM EDT Stacy Joy documented as of this encounter Medications at Time of Discharge alendronate (Fosamax) 70 MG tablet Take 1 tablet (70 mg) by mouth every 7 (seven) days. Take in the morning with a full glass of water, on an empty stomach, and do not take anything else by mouth or lie down for the next 30 min. brivaracetam (Briviact) 75 MG tablet tablet Take 1 tablet (75 mg) by mouth 2 (two) times a day. celecoxib (CeleBREX) 100 MG capsule Take 1 capsule by mouth daily. 10/23/2024 cholecalciferol (D3-5) 5,000 Units tablet Take 1 tablet (5,000 Units) by mouth 1 (one) time each day. cyanocobalamin 1000 MCG tablet Take 1 tablet (1,000 mcg) by mouth 1 (one) time each day. diphenhydrAMINE (Benadryl) 12.5 MG chewable tablet Chew 1 tablet (12.5 mg) every 6 (six) hours if needed for allergies. docusate sodium (Colace) 250 MG capsule Take 1 capsule (250 mg) by mouth 1 (one) time each day if needed for constipation. donepezil (Aricept) 5 MG tablet Take 1 tablet (5 mg) by mouth every night. DULoxetine (Cymbalta) [address] capsule Take 1 capsule by mouth daily. esomeprazole (NexIUM) [address] capsule Take 1 capsule (40 mg) by mouth 1 (one) time each day before breakfast. Do not open capsule. furosemide (Lasix) 20 MG tablet Take 1 tablet (20 mg) by mouth 1 (one) time each day if needed. gabapentin (Neurontin) 300 MG capsule Take 2 capsules (600 mg) by mouth 2 (two) times a day. irbesartan (Avapro) 150 MG tablet Take 1 tablet by mouth 1 time each day. irbesartan-hydro CHLOROthiazide (Avalide) 300-12.5 MG tablet Take 1 tablet by mouth 1 (one) time each day. lactulose (Chronulac) 10 GM/15ML solution Take 30 mL (20 g) by mouth 1 (one) time each day if needed. levothyroxine (Synthroid, Levoxyl) 25 MCG tablet Take 1 tablet (25 mcg) by mouth 1 (one) time each day before breakfast. LORazepam (Ativan) 1 MG tablet Take 1 tablet (1 mg) by mouth 2 (two) times a day. meclizine (Antivert) 25 MG tablet Take 1 tablet (25 mg) by mouth 2 (two) times a day. memantine (Namenda) 5 MG tablet Take 1 tablet (5 mg) by mouth 2 (two) times a day. mirabegron ER (Myrbetriq) 50 MG tablet Take 1 tablet (50 mg) by mouth 1 (one) time each day. oxyCODONE (Roxicodone) 10 MG immediate release tablet 1 tablet (10 mg) 2 (two) times a day if needed for severe pain. phenazopyridine (Pyridium) 200 MG tablet Take 1 tablet (200 mg) by mouth 3 (three) times a day if needed for pain, discomfort or irritation. 10 tablet 03/07/2024 Plecanatide 3 MG tablet Take 1 mg by mouth 1 (one) time each day. tiZANidine (Zanaflex) 4 MG capsule Take 1 capsule (4 mg) by mouth 3 (three) times a day if needed. documented as of this encounter Plan of Treatment Upcoming Encounters Date Type Department Care Team ([facility] st Contact Info) Description 06/14/2025 8:30 AM EST Appointment [facility] Ultrasound [address] [place] [address] 06/14/2025 10:30 AM EST Office Visit Medical Office Building Urology [address], [address] [place] [id number] Noprice, Judie M, [employer]BLER [address] [place] [address] documented as of this encounter Procedures Procedure Name Priority Date/Time Associated Diagnosis Comments CT RENAL STONE WO IV CONTRAST Routine 12/07/2024 9:33 AM EDT History of kidney stones documented in this encounter Results * CT Renal Stone wo IV Contrast (12/07/2024 9:33 AM EDT) Anatomical Region Laterality Modality Abdomen, Pelvis Computed Tomogra phy Impressions 12/07/2024 12:02 PM EDT Nonobstructing left renal calculi measuring up to 4 mm. CRITICAL RESULT: No. COMMUNICATION: Per this written report. Drafted by Florian Roblero MD on 12/07/2024 11:50 AM Final report signed by Florian Roblero MD on 12/07/2024 12:02 PM Narrative 12/07/2024 12:02 PM EDT CLINICAL INDICATION: Stone burden eval, post treatment TECHNIQUE: Multiple axial CT images were obtained from lung bases through pubic symphysis without the administration of IV contrast. Reformatted images in the coronal and sagittal planes were generated from the axial data set to facilitate diagnostic accuracy. Total DLP (Dose-Length Product): 908.93 mGy.cm. Please note: The reported value represents the total of one or more individual components during the CT acquisition on this date and at this time, and as such, the same value may appear in more than one CT report depending on the interpreting/reporting physicians. COMPARISON: 02/18/[address] FINDINGS: Analysis of the abdominopelvic viscera is limited by the absence of intravenous contrast material. Kidneys, Ureters, and Urinary Bladder: Relatively small right kidney. No ureteral calculus. No hydronephrosis. 3 clustered nonobstructing left renal calculi measuring up to 4 mm. Decompressed urinary bladder. No bladder calculus. No significant perinephric fat stranding. Lobulated renal contours with 8 mm exophytic right kidney interpolar region mass with indeterminate attenuation characteristics, unchanged size in the interval. Other Abdominopelvic Organs: Normal hepatic attenuation. Unchanged hepatic morphology with some volume redistribution suggesting chronic parenchymal disease. Approximately 2.3 cm calcified gallstone. No pericholecystic inflammation. No bile or pancreatic duct dilatation. No peripancreatic inflammation. Normal size spleen. No adrenal nodules. GI Tract/Mesentery/Peritoneum: Third duodenal segment diverticulum without associated inflammation. No bowel dilatation or transition point to suggest high-grade bowel obstruction. No suspicious bowel wall thickening or mesenteric findings. Lymph Nodes/Vasculature: Atherosclerotic abdominal aorta with focal dilatation in its infrarenal segment measuring up to 2.6 cm (102, 4). Atherosclerotic calcifications in the mesenteric, renal, and bilateral iliac arteries. No suspicious lymph nodes. Free Fluid: None. Musculoskeletal and Body Wall: Severe multilevel discovertebral and facet degenerative changes in the imaged spine. Moderate vertebral body compression deformity is unchanged. Diffuse osseous demineralization. Degenerative changes in the hips. Mechanical/degenerative changes at the pubic symphysis. Old rib fractures. Lower Chest: No suspicious lung base parenchymal findings. Coronary artery calcifications. Procedure Note Florian Roblero MD - 12/07/2024 CLINICAL INDICATION: Stone burden eval, post treatment TECHNIQUE: Multiple axial CT images were obtained from lung bases through pubicsymphysis without the administration of IV contrast. Reformatted images inthe coronal and sagittal planes were generated from the axial data set tofacilitate diagnostic accuracy. Total DLP (Dose-Length Product): 908.93 mGy.cm. Please note: The reportedvalue represents the total of one or more individual components during theCT acquisition on this date and at this time, and as such, the same valuemay appear in more than one CT report depending on theinterpreting/reporting physicians. COMPARISON: 02/18/[address] FINDINGS: Analysis of the abdominopelvic viscera is limited by the absence ofintravenous contrast material. Kidneys, Ureters, and Urinary Bladder: Relatively small right kidney. Noureteral calculus. No hydronephrosis. 3 clustered nonobstructing leftrenal calculi measuring up to 4 mm. Decompressed urinary bladder. Nobladder calculus. No significant perinephric fat stranding. Lobulatedrenal contours with 8 mm exophytic right kidney interpolar region masswith indeterminate attenuation characteristics, unchanged size in theinterval. Other Abdominopelvic Organs: Normal hepatic attenuation. Unchanged hepaticmorphology with some volume redistribution suggesting chronic parenchymaldisease. Approximately 2.3 cm calcified gallstone. No pericholecysticinflammation. No bile or pancreatic duct dilatation. No peripancreaticinflammation. Normal size spleen. No adrenal nodules. GI Tract/Mesentery/Peritoneum: Third duodenal segment diverticulum withoutassociated inflammation. No bowel dilatation or transition point tosuggest high-grade bowel obstruction. No suspicious bowel wall thickeningor mesenteric findings. Lymph Nodes/Vasculature: Atherosclerotic abdominal aorta with focaldilatation in its infrarenal segment measuring up to 2.6 cm (102, 4).Atherosclerotic calcifications in the mesenteric, renal, and bilateraliliac arteries. No suspicious lymph nodes. Free Fluid: None. Musculoskeletal and Body Wall: Severe multilevel discovertebral and facetdegenerative changes in the imaged spine. Moderate vertebral bodycompression deformity is unchanged. Diffuse osseous demineralization.Degenerative changes in the hips. Mechanical/degenerative changes at thepubic symphysis. Old rib fractures. Lower Chest: No suspicious lung base parenchymal findings. Coronary arterycalcifications. IMPRESSION: Nonobstructing left renal calculi measuring up to 4 mm. CRITICAL RESULT: No. COMMUNICATION: Per this written report. Drafted by Florian Roblero MD on 12/07/2024 11:50 AM Final report signed by Florian Roblero MD on 12/07/2024 12:02 PM us Judie [address] G[employer] M[employer] IMG CT PROCEDURES Final Res ult documented in this encounter Visit Diagnoses Diagnosis History of kidney stones documented in this encounter Additional Health Concerns Infection Onset Date Last Indicated Resolved Time MRSA Comment:Added from external infection. Source: [facility]. 09/03/2015 02/18/2024 Assessment Noted Time A fall risk assessment has been complete d for the patient 12/07/2024 10:09 AM EDT A Body Mass Index follow-up plan has been documented for the patient 12/07/2024 10:32 AM EDT documented as of this encounter Care Teams Brake Engineer Relationship Specialty Start Date End Date Triston Campos MD [address] [place] [address] PCP - General 11/15/20 documented as of this encounter
--- OUTSIDE RECORDS SUMMARY | 2024-12-07 11:10 | XMS_ITS | Encounter Summary ---
Author Organization [facility] Address [address] [place] [address] Care Team Providers Care Principal Web Developer Name Role Phone Triston Campos MD Primary Care Provider + [phone] Reason for Referral * Imaging (Routine) - Authorized Specialty Diagnoses / Procedures Referred By Khalif gr Referred To Contact Radiology Diagnoses History of kidney stones Procedures US Renal Complete Judie Borrero APRN [address] [place] [address] Phone: tel: fax: Referral ID Status Reason Start Date Expiration Date V isits Requested Visits Authorized [id number] Authorized 12/07/2024 06/08/2026 1 1 Reason for [...] Encounter Details Date Type Department Care Team ([facility] Contact Info) Description 12/07/2024 11:10 AM EDT Office Visit Medical Office Building Urology [facility] [address] [facility], [address] [place] [phone] Judie Borrero APRN [address] [place] [phone] History of kidney stones (Primary Dx) Social [...] and Family Not on file 02/21/2024 Attends Buddhist Services Not on file 02/20 Active Member [...] place to sleep or slept in a halfway (including now)? No 02/21/2024 AUDIT-C Answer Date [...] Borrero, ALEAH - 12/07/2024 11:10 AM EDT [facility] Urology Clinic Note 12/07/24 CC: History of [...] Anxiety Chronic kidney disease 02/18/24 admitted to [facility] for septic shock with acute kidney injury due to kidney stone - discharged02/21/24. Dementia (CMS/[facility]) Dental disease dentures GERD (gastroesophageal reflux disease) Hyperlipidemia Hypertension Hypothyroidism Irritable bowel syndrome Seizures ([facility]) epilepsy - last 2022 Spinal stenosis neck [...] Resource Strain: Low Risk (01/17/2024) Received from [facility] Overall Financial Resource Strain (CARDIA) Difficulty of [...] No Physical Activity: Inactive (01/17/2024) Received from [facility] Exercise Vital Sign On average, how many days per week do you engage in moderate to strenuous exercise (like a brisk walk)?: 0 days On average, how many minutes do you engage in exercise at this level?: 0 min Stress: No Stress Concern Present (01/17/2024) Received from [facility] [place] of Occupational Health - Occupational Stress Questionnaire Feeling of Stress : Not at all Social Connections: Unknown (02/21/2024) Social Connection and Isolation Panel Frequency of Communication with Friends and Family: Not on file Frequency of Social Gatherings with Friends and Family: Not on file Attends Buddhist Services: Not on file Active Member of [...] Info) Description 06/14/2025 8:30 AM EST Appointment [facility] Ultrasound [address] [place] [phone] 06/14/2025 10:30 AM EST Office Visit Medical Office Building Urology [address] [facility], [address] [place] [address] Judie Borrero APRN [address] [place] [phone] Scheduled Orders Name Type Priority Associated Diagnoses Orde r Schedule US Renal Complete Imaging Routine History of kidney stones Expected: 06/08/2025 (Approximate), Expires: 06/08/2026 documented as of this encounter Visit Diagnoses Diagnosis History of kidney stones- Primary documented in this encounter Additional Health Concerns Infection Onset Date Last Indicated Resolved Time MRSA Comment:Added from external infection. Source: [facility]. 09/03/2015 02/18/2024 Assessment Noted Time A fall risk assessment has been complete d for the patient 12/07/2024 10:09 AM EDT A Body Mass Index follow-up plan has been documented for the patient 12/07/2024 10:32 AM EDT documented as of this encounter Care Teams Principal Web Developer Relationship Specialty Start Date End Date Triston Campos MD [address] [place] [facility]31 PCP - General 11/15/20 documented as of this encounter
--- OUTSIDE RECORDS SUMMARY | 2025-01-09 09:40 | XMS_ITS ---
Author Organization [facility] Address [address] [facility] [address] [place] [id number] Care Team Providers Care Digital Communications Manager Name Role Phone Triston Campos Primary Care Provider Results Component Value Reference Range Notes Urinalysis - Inhouse Reviewed date:01/09/2025 07:35:00 PM Interpretation: Performing Lab: Notes/Report: Color/Clarity yellow/clear Leuk Neg Nitrite Neg Urobili 3.2 Protein Neg pH 5.5 Blood Neg Sp. Gr. 1.020 Ketone Neg Bili Neg Gluc Neg P-Culture, Urine Reviewed date:01/16/2025 01:36:03 PM Interpretation:suggest contamination, Specimen recollection is recommended Performing Lab: Notes/Report: Test performed by [facility] [address] [place] [address] , [address], [place] [address] Adrian Gilbert MD, Process Checker CLIA: [id number] Specimen Source Urine - Void Culture, Urine See Below Final Report : 10,000-15,000 CFU/ml Mixed Gram Positive and Negative Organisms Three or more organisms present likely representing contamination during collection by patient's urogenital, skin, and/or fecal abdi. Organism identification and sensitivity assessment are not recommended. Specimen recollection is recommended. REASON FOR VISIT urine sample Encounters Encounter Location Date Provider Diagnosis [facility] [address] [facility] [address] [place] [id number] 01/09/2025 Triston Campos Chronic UTI N 39.0 Assessments Encounter Date Diagnosis (ICD Code) Assessment Notes Treatment Notes Treatment Clinical Notes Section Notes 01/09/2025 Chronic UTI (ICD-10 - N39.0) Plan Of Treatment No Information Progress Notes * Maura CARRERODOB:1940 (84 yo F)Acc No.[id number]:01/09/2025 Progress notes Patient: Maura SHULTZ Provider: Briana Campos M.D. :1940 A ge:84 Y S ex:Female Date:01/09/2025 Address:[facility] [address] [place], [id number] Subjective: * Chief Complaints: * 1 . Urine sample. * Medical History: Objective: * Vitals: Assessment: * Assessment: 1. C hronic UTI - N39.0 (Primary) Plan: * Treatment: Value Reference Range C ulture, Urine See Below - * S pecimen Source Urine - Void - * Merry Castellanos 01/16/2025 01 :35:28 PM EDT >Pt's daughter notified and states she will try to get another specimen dropped off to recheck ?LAB: Urinalysis - Inhouse (Collection Date & Time - 01/09/2025)* Value Reference Range C olor/Clarity yellow/clear * L euk Neg * N itrite Neg * U robili 3.2 * P rotein Neg * p H 5.5 * B lood Neg * S p. Gr. 1.020 * K etone Neg * B hilda Neg * G joselyn Neg * Merry Castellanos 01/09/2025 02: 01:09 PM EDT >Triston Campos 01/09/2025 07:34:46 PM EDT > culture ordered. * Procedure Codes: 8 1002 Urinalysis, no micro * Images: Billing Information: * Visit Code: * Procedure Codes: 90257 Urinalysis, no micro. * Electronic signature of Fidelia Campos MD on 01/24/2025 at 10:57 AM EDT Sign off status: Pending * Provider: Briana Campos M.D. Date: 0 01/09/2025 Generated for [employer] paredes/Hern[place]/Simranitting on: 0 01/24/2025 10:57 AM EDT
--- OUTSIDE RECORDS SUMMARY | 2025-01-17 04:15 | XMS_ITS ---
Author Organization [facility] Address [address] [facility] [address] [place] [id number] Care Team Providers Care Net Developer With Wcf Name Role Phone Beth Triston Primary Care [...] Provider Diagnosis [facility] [address] [facility] [address] [place] [id number] 01/17/2025 Triston Campos Chronic UTI N 39.0 Assessments Encounter Date Diagnosis (ICD Code) Assessment Notes Treatment Notes Treatment Clinical Notes Section Notes 01/17/2025 Chronic UTI (ICD-10 - N39.0) Plan Of Treatment No Information Progress Notes * Maura CARRERODOB:1940 (84 yo F)Acc No.[id number]:01/17/2025 Patient: Maura SHULTZ Provider: Briana Campos M.D. :1940 A ge:84 Y S ex:Female Date:01/17/2025 Address:[facility] [address], [place], [id number] Subjective: * Chief Complaints: * 1 . [...] Information: * Visit Code: * Procedure Codes: 90869 Urinalysis, no micro. * Electronic signature of Fidelia Campos MD on 01/24/2025 at 10:57 AM EDT Sign off status: Pending * Provider: Briana Campos M.D. Date: 0 01/17/2025 Generated for Terra paredes/Hernán/Luis on: 0 01/24/2025 10:57 AM EDT
--- OUTSIDE RECORDS SUMMARY | 2025-01-24 10:57 | XMS_ITS | Clinical Summary ---
[facility] Address [address] [place] [address] Care Team Providers Care Engraver Automatic Name Role Phone Provider, No Known Primary Care Provider [phone] Medications methocarbamol (ROBAXIN) 750 MG tablet TAKE ONE TABLET BY MOUTH THREE TIMES DAILY 60 tablet 04/20/2016 Active Social History Tobacco Use Types Packs/Day Years Used Date Smoking Tobacco: Never Assessed Abuse Screen Answer Date Recorded Unsafe at Home or Work/School Not on file Feels Threatened by Someone? Not on file 05/2023 Does Anyone Keep You from Co ntacting Others or Doint Things Outside the Home? Not on file 04/14/2023 Physical Sign of Abuse Present Not on file 1 Housing Stability Answer Date Recorded Current Living Arrangements Not on file 04/04 Potentially Unsafe Housing Conditions Not on velia e 04/14/2023 Family and Community Support Answer [place] e Recorded Help with Day-to-Day Activities Not on file 04/14/2023 Lonely or Isolated Not on file 04/14/2023 Employment Answer Date Recorded Do you want help finding or keeping work or a andre b? Not on file 04/14/2023 Disabilities Answer Date Recorded Concentrating, Remembering, or Making Decisions Difficulty Not on file 04/14/2023 Doing Errands Independently Difficulty Not on fi le 04/14/2023 Education Answer Date Recorded Help with school or training? Not on file Preferred Language Not on file 04/14/2023 Comments Unknown Sex and Gender Information Value Date Recorded Sex Assigned at Not on file Legal Sex Female 11:45 AM EDT Gender Identity Not on file Sexual Orientation Not on file Plan of Treatment Health Maintenance Due Date Last Done Comments ANNUAL PHYSICAL 1940 DXA SCAN 1940 TDAP/TD VACCINES (1 - Tdap) 1957 Pneumococcal Vaccine 50+ (1 of 1 - PCV) 1988 ZOSTER VACCINE (1 of 2) 1988 RSV Vaccine - Adults (1 - 1-dose 75+ series) 4 COVID-19 Vaccine (1 - 2023- season) 2024 INFLUENZA VACCINE 04/04/2025 Additional Health Concerns Infection Onset Date Last Indicated MRSA Comment:nares screen 09/03/2015 09/03/2015 Care Teams Engraver Automatic Relationship Specialty Start Date End Date Provider, [place] [address] PCP - General 11/14/15
--- OUTSIDE RECORDS SUMMARY | 2025-01-24 10:57 | XMS_ITS | Clinical Summary ---
Author Organization [facility] Address [address] [place] [address] Care Team Providers Care Test Technician Name Role Phone Triston Campos MD Primary Care Provider + [phone] Allergies Active Allergy Reactions Criticality Noted Date [...] Department Care Team Description 12/12/2024 Results Follow-Up [facility] Urology [address], [address] [place] [phone] Judie Borrero APRN 12/07/2024 11:10 AM EDT Office Visit Medical Office Building Urology [address] [facility] [address], [address] [place] [address] Judie Borrero, COMMUNICATIONS SUPERINTENDENT History of kidney stones (Primary Dx) 12/07/2024 9:06 AM EDT - 12/07/2024 11:59 PM EDT Hospital Encounter [facility] [address] [place] [address] History of kidney stones Discharge [...] and Family Not on file 02/21/2024 Attends Confucianist Services Not on file 02/20 Active Member [...] place to sleep or slept in a custodial (including now)? No 02/21/2024 AUDIT-C Answer Date [...] Info) Description 06/14/2025 8:30 AM EST Appointment [facility] Ultrasound [address] [place] [address] 06/14/2025 10:30 AM EST Office Visit Medical Office Building Urology [address] [facility] [address] [facility] [address], [address] [place] [address] Noomen, Judie M, COMMUNICATIONS SUPERINTENDENT [address] [place] [address] Health Maintenance Due Date Last Done Comments [facility]-Bone Density Scan 1940 [facility]-Medicare Annual Wellness (AWV) 1940 [facility]-/Child/Adol SDOH Screenings 1940 [facility]- SDOH Screenings 1956 [facility]-Adult SDOH Screenings 1956 [facility]-DTaP,Tdap,and Td Vaccines (1 - Tdap) 1957 [facility]-Zoster Vaccines (1 of 2) 1988 [facility]-RSV Vaccine: 60+ Years or (1 - 1-dose 75+ series) 2013 [id number] Vaccine ( - season) 2024 05/09/2021, 09/11/2020, 08/14/2020 [facility]-Influenza Vaccine (#1) 03/05/202508/31, 03/17/2018, 04/19/2017, Additional history exists [facility]-Depression Screening [...] this topic Medical Devices Implanted Type Area Senior Microstrategy Developer Device Identifier Shelf Expiration Date Model / Serial / Lot Stent Ureteral Double Pigtail Pos 6fr 22cm - [id number] - [id number] Implanted:Qty: 1 on 02/18/2024 by Maru Persaud MD at [facility] [id number] 05/19/2025 [id number] / [id number] / Stent Ureteral Double Pigtail Pos 5fr 22cm - [id number] Implanted:Qty: 1 on 03/07/2024 by Maru Persaud MD at [facility] [id number] 09/01/2026 [id number] / / [id number] Procedures Procedure Name Priority Date/Time Associated Diagnosis [...] 12/07/2024 12:02 PM us Judie Calderón [employer] COMMUNICATIONS SUPERINTENDENT IMG CT PROCEDURES Final Res ult from Last 3 Months Additional Health Concerns Infection Onset Date 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 Source: [facility]. 09/03/2015 02/18/2024 Insurance [place]ICARE Advance Directives Documents on File Type Date Recorded Patient Anti Tank Missileman Expl anation Advance Directives and Living Will 03/07/2024 * Full Code (Latest Code Status on File) Date Activated Date Inactivated Comments 02/18/2024 7:05 PM 02/21/2024 6:15 PM Discussed wi th Daughter, Lila Go, about code status. She states that she is power of claim attorney over her mother's medical decision making. 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 Therefore, daughter states her wishes would be to be designated as Full Code. Question Answer Comments Patient has decision-making capacity? No Healthcare Surrogate: Adult child of the patient Name of Healthcare Surrogate: Lila Go Care Teams Test Technician Relationship Specialty Start Date End Date Triston Campos MD [address] [place] [address] PCP - General 11/15/20
--- OUTSIDE RECORDS SUMMARY | 2025-01-24 10:57 | XMS_ITS | Encounter Summary ---
Author Organization [facility] Address [address] [place] [address] Care Team Providers Care Faculty Physician Name Role Phone Triston Campos MD Primary Care Provider + [phone] Encounter Details Date Type Department Care Team [...] place to sleep or slept in a long term (including now)? No 02/21/2024 AUDIT-C Answer Date [...] Info) Description 06/14/2025 8:30 AM EST Appointment [facility] Ultrasound [address] [place] [address] 06/14/2025 10:30 AM EST Office Visit Medical Office Building Urology [address] [facility] [address], [address] [place] [address] Judie Borrero M, INCINERATOR PLANT LABORER [address] [place] [address] documented as of this encounter Visit Diagnoses Not on filedocumented in this encounter Additional Health Concerns Infection Onset Date Last Indicated Resolved Time MRSA Comment:Added from external infection. Source: [facility]. 09/03/2015 02/18/2024 Assessment Noted Time A fall risk assessment has been complete d for the patient 12/07/2024 10:09 AM EDT A Body Mass Index follow-up plan has been documented for the patient 12/07/2024 10:32 AM EDT documented as of this encounter Care Teams Faculty Physician Relationship Specialty Start Date End Date Triston Campos MD [address] [address] PCP - General 11/15/20 documented as of this encounter
--- OUTSIDE RECORDS SUMMARY | 2025-01-24 10:57 | XMS_ITS | Encounter Summary ---
Author Organization [facility] Address [address] [place] [address] Care Team Providers Care Personal Lines Appraiser Name Role Phone Triston Campos MD Primary Care Provider + [phone] Encounter Details Date Type Department Care Team (Late st Contact Info) Description 12/12/2024 Results Follow-Up [facility] Urology [address] [place] [address] NoJudie thrasher M, CALL CENTER OPERATIONS MANAGER [address] [place] [address] Social History Tobacco Use Types [...] and Family Not on file 02/21/2024 Attends [employer] Services Not on file 02/20 Active Member [...] place to sleep or slept in a penitentiary (including now)? No 02/21/2024 AUDIT-C Answer Date [...] Info) Description 06/14/2025 8:30 AM EST Appointment [facility] Ultrasound [address] [place] [address] 06/14/2025 10:30 AM EST Office Visit Medical Office Building Urology [address] [facility] [address], [address] [place] [address] Noomen, Judie M, CALL CENTER OPERATIONS MANAGER [address] [place] [address] documented as of this encounter Visit Diagnoses Not on filedocumented in this encounter Additional Health Concerns Infection Onset Date Last Indicated Resolved Time MRSA Comment:Added from external infection. Source: [facility]. 09/03/2015 02/18/2024 Assessment Noted Time A fall risk assessment has been complete d for the patient 12/07/2024 10:09 AM EDT A Body Mass Index follow-up plan has been documented for the patient 12/07/2024 10:32 AM EDT documented as of this encounter Care Teams Personal Lines Appraiser Relationship Specialty Start Date End Date Triston Campos MD [address] [address] PCP - General 11/15/20 documented as of this encounter
--- OUTSIDE RECORDS SUMMARY | 2025-01-24 10:57 | XMS_ITS | Patient Health Record ---
Author Organization [facility] Address [address] [place] [id number] Care Team Providers Care Robot Operator Name Role Phone Beth [place] Primary Care Provider Leena Bhagat Unavailable [phone] Allergies Allergen (clinical drug ingredient) Drug/Non Drug Allergy documented on EMR Reaction Allergy Type Onset Date Status codeine Codeine numbness Drug Allergy Active Results Component Value Reference Range Notes CBC Venipuncture (in house) Reviewed date:08/12/2024 01:27:24 [...] Interpretation:1402 Performing Lab: Notes/Report: Test performed by [employer] [address] [place] [address] , [address], [place] [address] Adrian Gilbert MD, Acid Tank Liner CLIA: [id number] Vitamin B12 [phone] pg/mL P-Comprehensive Metabolic Pa krystal (CMP) Reviewed date:08/12/2024 01:27:24 PM Interpretation:bun 35, cr 1.35, gfr 38 Performing Lab: Notes/Report: Test performed by [employer] [address] , [address], [place] [address] Adrian Gilbert MD, Acid Tank Liner CLIA: [id number] Sodium 142 135-145 mmol/L Potassium 5.1 3.5-5.3 [...] growth Performing Lab: Notes/Report: Test performed by [employer] [address] , [address], [place] [id number] Adrian Gilbert MD, Acid Tank Liner CLIA: [id number] Specimen Source Urine - CC Culture, Urine See Below Final Report : No growth P-Magnesium Reviewed date:08/12/2024 01:27:24 PM Interpretation: Normal Performing Lab: Notes/Report: Test performed by [employer] [address] , [address], [place] [address] Adrian Gilbert MD, Acid Tank Liner CLIA: [id number] Magnesium 2.3 1.6-2.4 mg/dL P-Phosphorus Reviewed date:08/12/2024 01:27:24 PM Interpretation: Normal Performing Lab: Notes/Report: Test performed by [employer] [address] , [address], [place] [address] Adrian Gilbert MD, Acid Tank Liner CLIA: [id number] Phosphorus 3.3 2.5-4.5 mg/dL P-TSH reflex to FT4 Reviewed date:08/12/2024 01:27:24 PM Interpretation: Normal Performing Lab: Notes/Report: Test performed by [employer] [address] , [address], [place] [address] Adrian Gilbert MD, Acid Tank Liner CLIA: [id number] TSH reflex to FT4 4.20 0.43-5.25 mU/L P-Vitamin D 25-Hydroxy Reviewed date:08/12/2024 01:27:24 PM Interpretation: Normal Performing Lab: Notes/Report: Test performed by [employer] [address] , [place] [address] Adrian Gilbert MD, Acid Tank Liner CLIA: [id number] Vitamin D 25-Hydroxy 67.3 30.0-100.0 ng/mL Interpretation of Vitamin D 25 OH: < 20 ng/mL - Deficiency 20 - 29 ng/mL - Insufficiency 30 - 100 ng/mL - Sufficiency > 100 ng/mL - Super-therapeutic- toxicity may occur above this level. Clinical correlation required. CBC Venipuncture (in house) Reviewed date:02/16/2024 03:47:08 [...] 12 Performing Lab: Notes/Report: Test performed by [facility] [address] [place] [address] , [place] [address] Adrian Gilbert MD, Acid Tank Liner CLIA: [id number] Sodium 134 135-145 mmol/L Potassium 5.0 3.5-5.3 mmol/L Chloride 99 97-108 mmol/L CO2 20 22-32 mmol/L Glucose 138 65-99 mg/dL BUN 68 8-23 mg/dL Creatinine 3.66 0.50-1.00 mg/dL Calcium 9.9 8.6-10.4 mg/dL eGFR by Creatinine 12 >59 mL/min/1.73m2 Urinalysis - Inhouse Reviewed date:03/13/2024 03:07:45 PM Interpretation: Performing Lab: Notes/Report: Color/Clarity orange/clear Leuk Neg Nitrite Pos Urobili 16 Protein Trace pH 5.0 Blood Neg Sp. Gr. 1.015 Ketone Neg Bili Neg Gluc Trace TEN-UTI panel Reviewed date:03/16/2024 10:38:04 AM Interpretation: Performing Lab: Notes/Report: Urinalysis - Inhouse Reviewed date:05/10/2024 01:10:57 PM Interpretation: Performing Lab: Notes/Report: Color/Clarity yellow/clear Leuk trace Nitrite neg Urobili 3.2 Protein neg pH 5.5 Blood neg Sp. Gr. 1.020 Ketone neg Bili neg Gluc neg P-Basic Metabolic Panel (BMP ) Reviewed date:05/10/2024 01:09:01 PM Interpretation:gluc 111, bun 36, creat 1.42, gfr 36 Performing Lab: Notes/Report: Test performed by [employer], [address] , [address], [place] [address] Adrian Gilbert MD, Acid Tank Liner CLIA: [id number] Sodium 143 135-145 mmol/L Potassium 4.3 3.5-5.3 mmol/L Chloride 103 97-108 mmol/L CO2 28 22-32 mmol/L Glucose 111 65-99 mg/dL BUN 36 8-23 mg/dL Creatinine 1.42 0.50-1.00 mg/dL Calcium 9.9 8.6-10.4 mg/dL eGFR by Creatinine 36 >59 mL/min/1.73m2 TEN-UTI panel Reviewed date:05/11/2024 02:55:20 PM Interpretation:Abnormal Performing Lab: Notes/Report: Abnormal Urinalysis - Inhouse Reviewed date:08/11/2024 04:35:51 PM Interpretation: Performing Lab: Notes/Report: Color/Clarity yellow Leuk trace Nitrite neg Urobili 3.2 Protein neg pH 5.5 Blood neg Sp. Gr. 1.020 Ketone neg Bili neg Gluc neg Urinalysis - Inhouse Reviewed date:01/09/2025 07:35:00 PM Interpretation: Performing Lab: Notes/Report: Color/Clarity yellow/clear Leuk Neg Nitrite Neg Urobili 3.2 Protein Neg pH 5.5 Blood Neg Sp. Gr. 1.020 Ketone Neg Bili Neg Gluc Neg P-Culture, Urine Reviewed date:01/16/2025 01:36:03 PM Interpretation:suggest contamination, Specimen recollection is recommended Performing Lab: Notes/Report: Test performed by [facility] [address] [place] [address] , [address], [place] [address] Adrian Gilbert MD, Acid Tank Liner CLIA: [id number] Specimen Source Urine - Void Culture, Urine See Below Final Report : 10,000-15,000 CFU/ml Mixed Gram Positive and Negative Organisms Three or more organisms present likely representing contamination during collection by patient's urogenital, skin, and/or fecal abdi. Organism identification and sensitivity assessment are not recommended. Specimen recollection is recommended. LC-Brivaracetam level serum Reviewed date:07/06/2024 08:50:12 AM Interpretation:3.86 Performing Lab:[employer] [facility], [address] [place] [phone], Phone - [phone], Director - Arielle Notes/Report: Brivaracetam 3.86 0.20 - 2.00 ug/mL This test was developed and its performance characteristics determined by [facility]. It has not been cleared or approved by the Food and Drug Administration. TEN-UTI panel Reviewed date:03/30/2024 09:30:30 AM Interpretation:Abnormal Performing Lab: Notes/Report: Abnormal Miscell Ref Lab Test Reviewed date:04/05/2024 11:25:54 AM Interpretation:Brivaracetam 4.43 Performing Lab: Notes/Report: Brivaracetam 4.43 Miscell Ref Lab Test Reviewed date:04/05/2024 11:25:54 AM Interpretation:Brivaracetam 4.43 Performing Lab: Notes/Report: Brivaracetam 4.43 P-Basic Metabolic Panel (BMP ) Reviewed date:04/03/2024 11:32:47 AM Interpretation:gluc 131, bun 37, Cr 1.31, gfr 40 Performing Lab: Notes/Report: Test performed by [facility] , [address], [place] [address] Adrian Gilbert MD, Acid Tank Liner CLIA: [id number] Sodium 141 135-145 mmol/L Potassium 4.4 3.5-5.3 mmol/L Chloride 107 97-108 mmol/L CO2 23 22-32 mmol/L Glucose 131 65-99 mg/dL BUN 37 8-23 mg/dL Creatinine 1.31 0.50-1.00 mg/dL Calcium 9.8 8.6-10.4 mg/dL eGFR by Creatinine 40 >59 mL/min/1.73m2 CBC Venipuncture (in house) Reviewed date:04/03/2024 11:32:47 [...] - 38 platlet 217 100 - 400 Urinalysis - Inhouse Reviewed date:03/29/2024 09:34:52 AM Interpretation: Performing Lab: Notes/Report: Color/Clarity yellow/clear Leuk trace Nitrite neg Urobili 3.2 Protein trace pH 5.5 Blood neg Sp. Gr. 1.025 Ketone neg Bili neg Gluc neg P-Comprehensive Metabolic Pa krystal ([facility]) Reviewed date:02/25/2024 09:33:16 AM Interpretation:gluc 129, bun 24, Cr 1.18, gfr 45 Performing Lab: Notes/Report: Test performed by [facility] , [place] [address] Adrian Gilbert MD, Acid Tank Liner CLIA: [id number] Sodium 143 135-145 mmol/L Potassium 4.1 3.5-5.3 [...] 0.3 <0.2-1.2 mg/dL A/G Ratio 1.2 1.1-2.5 TEN-UTI panel Reviewed date:01/19/2025 08:37:21 AM Interpretation:Negative Performing Lab: Notes/Report: Negative Urinalysis - Inhouse Reviewed date:10/26/2024 08:29:47 AM Interpretation: Performing Lab: Notes/Report: Color/Clarity yellow/clear Leuk 1+ Nitrite Pos Urobili 3.2 Protein 1+ pH 5.0 Blood Neg Sp. Gr. 1.020 Ketone Neg Bili Neg P-Culture, Urine Reviewed date:10/30/2024 09:21:08 AM Interpretation:suggest contamination, recollection recommended Performing Lab: Notes/Report: Test performed by [facility] [address] [place], [place] [address] [place] , [address], [place] [address] Adrian Gilbert MD, Acid Tank Liner CLIA: [id number] Specimen Source Urine - Void Culture, Urine See Below Final Report : 10,000-15,000 CFU/ml Mixed Gram Positive and Negative Organisms Three or more organisms present likely representing contamination during collection by patient's urogenital, skin, and/or fecal abdi. Organism identification and sensitivity assessment are not recommended. Specimen recollection is recommended. Urinalysis - Inhouse Reviewed date:11/02/2024 09:12:59 AM Interpretation: Performing Lab: Notes/Report: Color/Clarity yellow Leuk trace Nitrite neg Urobili 3.2 Protein neg pH 5.5 Blood neg Sp. Gr. 1.020 Ketone neg Bili neg Gluc neg P-Culture, Urine Reviewed date:11/02/2024 11:46:28 AM Interpretation:No Significant Growth Performing Lab: Notes/Report: Test performed by [facility] [address] [place], [place] [address] [place] , [address], [place] [address] Adrian Gilbert MD, Acid Tank Liner CLIA: [id number] Specimen Source Urine - Void Culture, Urine See Below Final Report : No Significant Growth Urinalysis - Inhouse Reviewed date:01/17/2025 06:16:40 PM Interpretation: Performing Lab: Notes/Report: Color/Clarity Yellow/Clear Leuk Trace Nitrite Neg Urobili 3.2 Protein Neg pH 5.5 Blood Neg Sp. Gr. 1.020 Ketone Neg Bili Neg Gluc Neg Urinalysis - Inhouse Reviewed date:11/11/2024 10:25:47 AM Interpretation: Performing Lab: Notes/Report: Color/Clarity yellow Leuk trace Nitrite neg Urobili 3.2 Protein neg pH 5.5 Blood neg Sp. Gr. 1.020 Ketone neg Bili neg Gluc neg TEN-UTI panel Reviewed date:09/08/2024 11:10:00 AM Interpretation:Negative Performing Lab: Notes/Report: Negative Urinalysis - Inhouse Reviewed date:09/08/2024 11:03:52 AM Interpretation:tracke leuk Performing Lab: Notes/Report: tracke leuk Color/Clarity dark yellow/cloudy Leuk Trace Nitrite Neg Urobili 3.2 Protein Neg pH 5.5 Blood Neg Sp. Gr. >=1.030 Ketone Trace Bili Neg Gluc Neg CBC Venipuncture (in house) Reviewed date:11/11/2024 10:26:00 [...] 34 Performing Lab: Notes/Report: Test performed by [employer] [address] [place] [address] , [address], [place] [address] Adrian Gilbert MD, Acid Tank Liner CLIA: [id number] Sodium 143 135-145 mmol/L Potassium 4.1 3.5-5.3 [...] Interpretation:Normal Performing Lab: Notes/Report: Test performed by [employer] [address] , [place] [address] Adrian Gilbert MD, Acid Tank Liner CLIA: [id number] TSH reflex to FT4 2.68 0.43-5.25 mU/L TEN-UTI panel Reviewed date:11/14/2024 10:18:38 AM Interpretation:E. Coli-sensitive Performing Lab: Notes/Report: E. Coli-sensitive TEN-UTI panel Reviewed date:11/14/2024 10:18:38 AM Interpretation:E. Coli-sensitive Performing Lab: Notes/Report: E. Coli-sensitive Urinalysis - Inhouse Reviewed date:11/17/2024 12:41:29 PM [...] - 38 plat 199 100 - 400 M-Miscellaneous Test Reviewed date:04/05/2024 11:34:56 AM Interpretation: Performing Lab: Notes/Report: JOSÉ MIGUELKRISTINEMARCO ANTONIO #[id number] MISCT SCANNED IMAGE IMAGE SENT TO MEDICAL RECORDS TO BE SCANNED Medications Medication SIG (Take, Route, Frequency, Duration) [...] Trulance 3 mg TAKE ONE TABLET BY OUTH EVERY DAY; Duration: 90 Active Alendronate Sodium 70 mg 1 tablet by izabel th once weekly; Duration: 84 days Active Memantine HCl 5 mg 1 tablet orally twic e a day; Duration: 90 days Active oxyCODONE HCl 10 MG 1 tab(s) orally 2 ti mes a day; Duration: 30 days 01/23/2025 Active DULoxetine HCl 60 mg 1 capsule orally on ce a day; Duration: 30 days Active Levothyroxine Sodium 25 MCG 1 tab(s) ora lly once a day; Duration: 90 days Active Vitamin B 12 500 MCG 1 tab(s) orally onc e a day 03/06/2020 Active Myrbetriq 50 mg 1 tablet Orally Once a day; Duration: 90 days Active Albuterol Sulfate HFA 108 (90 Base) MCG/ACT 2 puff(s) inhaled qid and q2h prn; Duration: 30 days 04/14/2022 Active Furosemide 20 mg 1 tablet Orally Once a day; Duration: 90 days Active Lumbar Back Brace/Support Pad - as directed 12/11/2022 Active Celecoxib 100 mg 1 capsule Orally Onc e a day; Duration: 90 days Active Triamcinolone Acetonide 0.1 % 1 application Externally Twice a day 02/24/2024 Active Donepezil HCl 5 mg TAKE ONE TABLET BY M OUTH EVERY DAY AT BEDTIME; Duration: 90 Active Diclofenac Sodium 1 % 4 grams Externally four times a day as needed 03/28/2024 Active Esomeprazole Magnesium 40 mg TAKE ONE CA PSULE BY MOUTH EVERY DAY; Duration: 90 Active Azelastine HCl 137 MCG/SPRAY 2 puffs (1 spray in each nostril) Nasally Twice a day 06/29/2024 Active MiraLax 17 GM/SCOOP 1 scoop mixed with 8 ounces of fluid Orally Once a day 06/29/2024 Active Gabapentin 300 MG 2 capsules orally 2 times daily 07/28/2024 Active Docusate Sodium 250 mg TAKE ONE CAPSULE BY MOUTH TWICE DAILY NEEDED; Duration: 30 Active Commode Bedside - as directed Active [...] MOUTH ONCE DAILY NEEDED; Duration: 30 Active Tamsulosin HCl 0.4 MG 1 capsule Orally O nce a day; Duration: 30 day(s) Active Phenazopyridine HCl 200 MG 1 tablet afte r meals Orally Three times a day; Duration: 2 day(s) Active Wheelchair - as directed Activ e Immunizations Vaccine Route Administration Date Status Comme nts xFluzone High Dose-private (65yr&older) IM Intramuscular 04/10/2014 Administered xFluzone (6mos and older)-trivalent Unknown 06/11/2007 Administered xFluzone (6mos and older)-trivalent Unknown 05/21/2008 Administered xFlu shot- 6months-36 months of dix-XRVD-AFHI-triva lent Unknown 03/22/2012 Administered Prevnar (PCV20) IM Intramuscular 04/12/2023 Administered Prevnar (PCV13) IM Intramuscular 04/27/2016 Administered PNEUMOVAX 23 VACCINE Unknown 06/11/2007 Administered PNEUMOVAX 23 VACCINE IM Intramuscular 05/16/2020 Administered Fluzone Quad (6months&older) IM Intramuscular 08/31/2019 Administered Fluzone High Dose (65yr and older) [...] (65yr and older) IM Intramuscular 03/28/2024 Administered COVID 19 Moderna Unknown 08/14/2020 Administered COVID 19 Moderna Unknown 09/11/2020 Administered COVID 19 Moderna Unknown 05/09/2021 Administered Problems Problem Type SNOMED Code ICD Code Onset Dates Problem Status W/U Status Risk Notes Problem Essential hypertension (32161632) Essential (primary) hypertension (I10) Active confirmed Problem Essential hypertension (10666791) Essential hypertension (I10) Active confirmed Problem Hypertriglyceridemia (597627709) Hypertriglyceridemia (E78.1) Active confirmed Problem Anxiety (01084432) Anxiety (F41.9) Active confi rmed Problem Dysuria (07786137) Dysuria (R30.0) Active confi rmed Problem Mixed anxiety and depressive disorder (077599645) Depression with anxiety (F41.8) Active confirmed Problem Memory loss (34753157) Memory loss (R41.3) Active confirmed Problem Seizure disorder (736623184) Seizure disorder (G40.909) Active confirmed Problem Sciatica (71114578) Lumbago with sciatica, right side (M54.41) Active confirmed Problem Fatigue (71461572) Other fatigue (R53.83) Active confirmed Problem Sciatica (02000043) Lumbago with sciatica, left side (M54.42) Active confirmed Problem Urge incontinence of urine (74271197) Urge incontinence (N39.41) Active confirmed Problem Frequency of micturition (794727569) Frequency of micturition (R35.0) Active confirmed Problem Malaise (973317005) Other malais e (R53.81) Active confirmed Problem Chronic pain (36589135) Other chronic pain (G89.29) Active confirmed Problem Lumbosacral spondylosis without myelopathy (40810731) Lumbosacral radiculopathy due to degenerative joint disease of spine (M47.27) Active confirmed Problem Acquired hypothyroidism (012972954) Acquired hypothyroidism (E03.9) Active confirmed Problem Low back pain (041084151) Bilateral low back pain without sciatica (M54.5) Active confirmed Problem Lumbar spinal stenosis (24284464) Spinal stenosis, lumbar (724.02) Active confirmed Problem Kidney stone (92807973) Kidney stone (N20.0) Active confirmed Problem Gastroesophageal reflux disease (544442703) Gastroesophageal reflux disease, esophagitis presence not specified (K21.9) Active confirmed Problem Osteoporosis (80142588) Osteoporosis (M81.0) Active confirmed Problem Ataxia (14254786) Ataxia (R27.0) Active confirm ed Problem Altered mental statu s (057400909) Altered mental status, unspecified altered mental status type (R41.82) Active confirmed Problem Recurrent falls (397248839) Frequent falls (R29.6) Active confirmed Problem Body mass index 30.0 0 to 34.99 (352940205665541) BMI 34.0-34.9,adult (Z68.34) Active confirmed Problem Dementia (78481791) Dementia wit hout behavioral disturbance (F03.90) Active confirmed Problem Chronic idiopathic constipation (67681698) Chronic idiopathic constipation (K59.04) Active confirmed Problem Lumbosacral spondylosis without myelopathy (82701815) Osteoarthritis of lumbar spine, unspecified spinal osteoarthritis complication status (M47.816) Active confirmed Problem Hearing loss (88429062) Hearing loss of left ear, unspecified hearing loss type (H91.92) Active confirmed Problem Seasonal allergic rhinitis (199407572) Seasonal allergic rhinitis, unspecified trigger (J30.2) Active confirmed Problem Allergic rhinitis (46026811) Allergic rhinitis, unspecified seasonality, unspecified trigger (J30.9) Active confirmed Problem Chronic kidney disease stage 3B (disorder) (045349148) Stage 3b chronic kidney disease (N18.32) Active confirmed Problem Low back pain (007109316) Low back pain, unspecified (M54.50) Active confirmed Problem Chronic kidney disease stage 3A (disorder) (420832243) Stage 3a chronic kidney disease (CKD) (N18.31) Active confirmed Problem Localized, primary osteoarthritis of the shoulder region (057216867) 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) Active confirmed Vital Signs Heart Rate 102 /min 11/17/2024 Blood pressure diastolic 60 mm Hg 11/17/2024 Height 62 in 11/17/2024 Blood pressure systolic 164 mm Hg 11/17/2024 Weight 000 lbs 11/17/2024 BMI 34.56 kg/m2 11/10/2024 Encounters Encounter Location Date Provider Diagnosis [facility] [address] [facility] [address] [place] [id number] 02/16/2024 [place] Acute UTI N39.0 and Renal insufficiency N28.9 [facility] [address] [facility] [address] [place], [place] [id number] 02/24/2024 [place] Kidney stone N20.0 ; Acute UTI N39.0 ; RUFINA (acute kidney injury) N17.9 and Irritant contact dermatitis, unspecified trigger L24.9 [facility] [address] [facility] [address] [place], [place] [id number] 03/10/2024 [place] Acute UTI N39.0 [facility] [address] [place], [place] [id number] 03/28/2024 [place] Urinary frequency R3 5.0 ; Stage 3a chronic kidney disease (CKD) N18.31 ; Seizure disorder G40.909 and Pain in right shoulder M25.511 [facility] [address] [facility] [address] [place], [place] [id number] 05/09/2024 [place] Pyuria R82.[address] age 3b chronic kidney disease N18.32 [facility] [address] [place], [place] [id number] 06/29/2024 [place] Seizure disorder G40 .909 ; Seasonal allergic rhinitis, unspecified trigger J30.2 and Chronic idiopathic constipation K59.04 [facility] [address] [place], [place] [id number] 08/11/2024 [place] Fatigue, unspecified type R53.83 ; Anorexia R63.0 ; Stage 3b chronic kidney disease N18.32 ; Open wound of right forearm, initial encounter S51.801A ; Pyuria R82.81 ; Acute abdominal pain R10.9 ; Urinary tract infection without hematuria, site unspecified N39.0 and Urinary frequency R35.0 [facility] [address] [place], [place] [id number] 09/06/2024 [place] Frequent UTI N39.0 [facility] [address] [place] [id number] 10/25/2024 [place] Acute UTI N39.0 ; Se izure disorder G40.909 ; Acquired hypothyroidism E03.9 ; Anxiety F41.9 ; Essential (primary) hypertension I10 ; Low back pain, unspecified M54.50 ; Dementia without behavioral disturbance F03.90 and BMI 34.0-34.9,adult Z68.34 [facility] [address] [facility] [address] [place] [id number] 10/31/2024 [place] Urinary tract infect ion without hematuria, site unspecified N39.0 [facility] [address] [facility] [address] [place] [id number] 11/10/2024 [place] Frequent UTI N39.0 ; Fatigue, unspecified type R53.83 and Stage 3b chronic kidney disease N18.32 [facility] [address] [place], [place] [id number] 11/17/2024 [place] Acute UTI N39.0 and Fever, unspecified R50.9 [facility] [address] [place] [id number] 01/09/2025 [place] Chronic UTI N39.0 [facility] [address] [place] [id number] 01/17/2025 [place] Chronic UTI N39.0 [facility] [address] [place] [id number] 02/01/2024 [place] [facility] [address] [place] [id number] 02/02/2024 [place] Depression with anxi ety F41.8 and Low back pain, unspecified M54.50 [facility] [address] [place] [id number] 02/18/2024 [place] [facility] [address] [place] [id number] 02/21/2024 [place] [facility] [address] [place] [id number] 02/25/2024 [place] [facility] [address] [place] [id number] 03/07/2024 [place] [facility] [address] [place] [id number] 03/16/2024 [place] [facility] [address] [place] [id number] 03/30/2024 Leena Crowdy [facility] [address] [place] [id number] 04/03/2024 [place] [facility] [address] [place] [id number] 05/08/2024 [place] Depression with anxi ety F41.8 [facility] [address] [place] [id number] 05/10/2024 [place] [facility] [address] [place] [id number] 06/15/2024 [place] [facility] [address] [place] [id number] 07/06/2024 [place] [facility] [address] [place] [id number] 07/18/2024 [place] Low back pain, unspecified M54.50 [facility] [address] [place] [id number] 07/27/2024 [place] [facility] [address] [place] [id number] 08/12/2024 [place] [facility] [address] [place] [id number] 08/17/2024 [place] Depression with anxi ety F41.8 and Low back pain, unspecified M54.50 [facility] [address] [place] [id number] 09/26/2024 [place] Low back pain, unspecified M54.50 [facility] [address] [place] [id number] 10/18/2024 [place] Seizure disorder G40 .909 [facility] [address] [place] [id number] 10/30/2024 [place] [facility] [address] [place] [id number] 11/14/2024 [place] [facility] [address] [address] [place], [place] [id number] 11/15/2024 [place] [facility] [address] [place], [place] [id number] 11/20/2024 [place] Depression with anxi ety F41.8 [facility] [address] [place], [place] [id number] 11/22/2024 [place] [facility] [address] [place], [place] [id number] 01/23/2025 [place]iston [place] Low back pain, unspecified M54.50 Assessments Encounter Date Diagnosis (ICD Code) Assessment Notes Treatment Notes Treatment Clinical Notes Section Notes 02/02/2024 Depression with anxiety (ICD-10 - F41.8) [...] Patient to follow up with urology at [facility] for further treatment of her kidney stone 02/24/2024 Acute UTI (ICD-10 - N39.0) 03/10/2024 Acute UTI (ICD-10 - N39.0) 03/28/2024 Stage 3a chronic kidney disease (CKD) (ICD-10 - N18.31) 05/08/2024 Depression with anxiety (ICD-10 - F41.8) 05/09/2024 Pyuria (ICD-10 - R82.81) 05/09/2024 Stage 3b chronic kidney disease (ICD-10 - N18.32) 06/29/2024 Seizure disorder (ICD-10 - G40.909) 03/28/2024 Urinary frequency (ICD-10 - R35.0) 06/29/2024 Seasonal allergic rhinitis, unspecified trigger (ICD-10 - J30.2) 07/18/2024 Low back pain, unspecified (ICD-10 - M54.50) 08/11/2024 Anorexia (ICD-10 - R63.0) 08/11/2024 Fatigue, unspecified type (ICD-10 - R53.83) 08/17/2024 Depression with anxiety (ICD-10 - F41.8) 09/06/2024 Frequent UTI (ICD-10 - N39.0) 09/26/2024 Low back pain, unspecified (ICD-10 - M54.50) 10/18/2024 Seizure disorder (ICD-10 - G40.909) 10/25/2024 Seizure disorder (ICD-10 - G40.909) 10/25/2024 [...] 11/20/2024 Depression with anxiety (ICD-10 - F41.8) 01/09/2025 Chronic UTI (ICD-10 - N39.0) 01/17/2025 Chronic UTI (ICD-10 - N39.0) 01/23/2025 Low back pain, unspecified (ICD-10 - M54.50) 11/10/2024 Stage 3b chronic kidney disease (ICD-10 - N18.32) 10/25/2024 Acquired hypothyroidism (ICD-10 - E03.9) 08/17/2024 Low back pain, unspecified (ICD-10 - M54.50) 08/11/2024 Stage 3b chronic kidney disease (ICD-10 - N18.32) 03/28/2024 Seizure disorder (ICD-10 - G40.909) 06/29/2024 Chronic idiopathic constipation (ICD-10 - K59.04) 02/24/2024 RUFINA (acute kidney injury) (ICD-10 - N17.9) 02/02/2024 Low back pain, unspecified (ICD-10 - M54.50) 03/28/2024 Pain in right shoulder (ICD-10 - M25.511) 02/24/2024 Irritant contact dermatitis, unspecified trigger (ICD-10 - L24.9) 08/11/2024 Open wound of right forearm, initial encounter (ICD-10 - S51.801A) 10/25/2024 Anxiety (ICD-10 - F41.9) 08/11/2024 Pyuria (ICD-10 - R82.81) 10/25/2024 Essential (primary) hypertension (ICD-10 - I10) 08/11/2024 Acute abdominal pain (ICD-10 - R10.9) 10/25/2024 Low back pain, unspecified (ICD-10 - M54.50) 08/11/2024 Urinary tract infection without hematuria, site unspecified (ICD-10 - N39.0) 10/25/2024 Dementia without behavioral disturbance (ICD-10 - F03.90) 08/11/2024 Urinary frequency (ICD-10 - R35.0) 10/25/2024 BMI 34.0-34.9,adult (ICD-10 - Z68.34) 02/24/2024 Other Labs and radiology reports from last week reviewed in office today Plan Of Treatment No Information Insurance Providers Payer Name Payer Address Payer Phone Subscriber Number Group Number Insured Name Patient Relationship to Insured Coverage Start Date Coverage End Date MEDICARE PART B [address] [address] Julio Césardeakaylyn alejandraBATOOL [id number] [id number] Maura Carrero Self - patient is the insured MEDICA[employer] [address] [place] [id number] Maura Carrero Self - patient is the [...] Surgical History Surgery Date(Month/Year) Hospitalization History Reason Date(Month/Year)"
--- NOTE | 2025-01-24 11:23 | EXP.PAIN.SOA ---
[facility] Disclaimer: The information contained in this section may have been updated after the patient was seen, as this information can be updated by other users. Medical History Breakthrough seizure Adjustment disorder Community acquired pneumonia Spinal stenosis, lumbar region with neurogenic claudication Lumbosacral radiculopathy due to degenerative joint disease of spine Degenerative joint disease (DJD) of lumbar spine Hypothyroidism (acquired) Hypertension Seizure Chronic low back pain Frequent UTI Heart murmur Anxiety Spinal stenosis Spinal stenosis in cervical region Former smoker Hypothyroid HTN (hypertension) Seizures Surgical History No pertinent past surgical history Family History Other Family history of cancer Family history of heart attack Social History Smoking Status: Never smoker alcohol intake: never substance use type: denies use current occupational status: other Travel in the last 8 weeks?: None caregiver/support person: Yes (daughter) household members: family housing: house lives independently: No marital status: education level: middle school current occupational exposures/hazards: No caffeine: Yes special lion needs: No agree to transfusion: No PM Subjective & Objective Subjective Subjective:: IssuePatient is a pleasant 84-year-old female who presents today for follow-up of bilateral SI injections on 01/09/2025. Today she rates that pain a 3 out of 10 and states that she has had at least 75 to 80% improvement and it made a big difference. Patient is complaining however of worsening right knee pain. Patient states this has been a chronic pain that she saw's for initially years ago and that it has from time to time. Patient states it just seems like more and more it wants to get way out and she is having pain even behind her knee. Patient does state the pain is interfering with her ability perform activities of daily living such as cooking and cleaning. Patient would like to see about options to improve this joint pain. Her Jacob has been reviewed and is appropriate. Patient is prescribed compounded cream and tizanidine from our office but does not need refills. Review of Systems: General: No recent weight changes, no fever, no sleep disturbances Respiratory: No cough, no shortness of air, no recurring pulmonary infections Cardiovascular/peripheral vascular: No chest pain, no palpitations, no edema, no shortness of breath Gastrointestinal: No new onset incontinence, normal bowel movements reported Genitourinary: No new onset incontinence Musculoskeletal: Right knee pain Psychiatric: [Normal mood/affect] Neurological: [Denies weakness in extremities], [denies balance issues] Pain at rest (0-10 scale): 5 Objective Objective:: Physical Exam: General: Alert and oriented x3, no acute distress, pleasant and cooperative Lungs: Respirations even and unlabored, symmetrical chest expansion Eyes: PERRL Musculoskeletal: Flexion and extension of right knee somewhat guarded secondary to pain, [antalgic gait noted] Neurological: Speech clear, no gross sensory deficit Has patient had previous pain injection?: Yes Percent improvement in pain since last injection: 80% Conservative treatment options previously tried: Home exercise plan Length of treatment: Longer than 12 weeks Meds Home Medications and Allergies Home Medications ?Medication ?Instructions ?Recorded ?Confirmed ?Type celecoxib 100 mg capsule 100 mg PO DAILY 01/02/21 01/09/25 History duloxetine 60 mg capsule,delayed 60 mg PO DAILY 01/02/21 01/09/25 History release esomeprazole magnesium 40 mg 40 mg PO DAILY 01/02/21 01/09/25 History capsule,delayed release meclizine 25 mg tablet 25 mg PO BIDP PRN Motion Sickness 01/02/21 01/09/25 History mirabegron 50 mg tablet,extended 50 mg PO DAILY 01/02/21 01/09/25 History release 24 hr alendronate 70 mg tablet 70 mg PO MO 01/03/21 01/09/25 History cholecalciferol (vitamin D3) 125 125 mcg PO DAILY 01/03/21 01/09/25 History mcg (5,000 unit) capsule cyanocobalamin (vitamin B-12) 500 500 mcg sublingual DAILY 01/03/21 01/09/25 History mcg disintegrating tablet,sublingual docusate sodium 250 mg capsule 250 mg PO BIDP PRN Constipation 01/03/21 01/09/25 History oxycodone 10 mg tablet 10 mg PO BID PRN Pain 01/03/21 01/09/25 History gabapentin 300 mg capsule 600 mg PO BID 01/16/21 01/09/25 History levothyroxine 25 mcg tablet 25 mcg PO DAILY 01/16/21 01/09/25 History donepezil 5 mg tablet 5 mg PO HS 08/20/22 01/09/25 History lorazepam 1 mg tablet 1 mg PO BID Anxiety 08/20/22 01/09/25 History memantine 5 mg tablet 5 mg PO BID 08/20/22 01/09/25 History brivaracetam 75 mg tablet 75 mg PO BID seizure #60 tabs 08/21/22 01/09/25 Rx loratadine 10 mg tablet 10 mg PO DAILYP PRN Allergy 03/31/23 01/09/25 History Symptoms multivitamin with minerals-folic 1 tab PO DAILY Supplement 03/31/23 01/09/25 History acid 0.4 mg tablet (One-A-Day Women's 50 Plus) irbesartan 300 1 tab PO DAILY 01/11/24 01/09/25 History mg-hydrochlorothiazide 12.5 mg tablet plecanatide 3 mg tablet (Trulance) 3 mg PO DAILY 01/11/24 01/09/25 History ondansetron 4 mg disintegrating 4 mg PO Q8H PRN nausea and 01/14/24 01/09/25 Rx tablet vomiting #20 tabs diazepam 5 mg/spray (0.1 mL) nasal 5 mg (0.1 mL) intranasal ONCE PRN 06/26/24 01/09/25 Rx spray seizure #2 sprays suzetrigine 50 mg tablet (Journavx) 50 mg PO DAILY #14 tabs 10/18/24 01/09/25 Rx tizanidine 4 mg tablet (Zanaflex) 4 mg PO TID #90 tabs 10/18/24 01/09/25 Rx New Prescriptions to Start Prescriptions: Allergies Allergy/AdvReac Type Severity Reaction Status Date / Time codeine Allergy Intermediate Rash Verified 08/11/24 15:12 Assessment and Plan *Assessment and plan (1) Chronic pain of right knee: Status: Acute Category: Medical Code(s): M25.561 - Pain in right knee; G89.29 - Other chronic pain Plan Patient is experiencing worsening pain in her right knee with very limited range of motion. I did discuss with her that I will put in an x-ray order today of the right knee with the possibility of ordering advanced imaging at a later date. Patient was also counseled that I do believe she would benefit from a intra-articular right knee injection. Risk and benefits were discussed with the patient and she would like to proceed forward with this plan of care. Patient has tried and failed conservative therapy including oral medication, heat and ice, topicals, at home stretching exercise for longer than 12 weeks. This has been a chronic pain source for years. Patient will be scheduled for a right intra-articular knee injection without fluoroscopic or ultrasound guidance. Patient has been instructed to contact the clinic with any concerns before the next appointment. Dr. Gonzalez has reviewed this note and agrees with this plan of care. This note was dictated using voice recognition software and make contain errors or omissions. All injections are used with Lidocaine, Bupivacaine and dexamethasone. Occasionally urine drug screen is needed to verify patient's compliance with our office pain contract. This is ordered based off specific treatments related to chronic pain with the potential to abuse certain medications.
--- NOTE | 2025-01-24 11:26 | XR_ITS ---
FINAL REPORT CLINICAL HISTORY: Chronic right knee pain FINDINGS: RIGHT KNEE Three views were obtained. There is no fracture or dislocation. There are moderate degenerative changes. The bones are osteopenic. Chondrocalcinosis is identified. 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 No soft tissue abnormality is identified. IMPRESSION: Degenerative changes without acute bony abnormality. Reviewed, Interpreted and Dictated by Carolina Reid MD Transcribed by Priscila Saenz Authenticated and [facility]
[2025-01-24 13:41] VITALS: BP 132/67; PULSE 82; RESP 14; O2SAT 92; BMI 28.3
== END 2025-01-24 23:59 | disposition home or self-care (01) ==
PROVIDERS: PCP Family Medicine; Visit Provider Nurse Practitioner Family
DX: M25.561 Pain in right knee (principal); G89.29 Other chronic pain
CPT/HCPCS: 73562; 99212; G0463

== ENCOUNTER 2025-02-08 12:55 | Outpatient (CLI) | payer MEDICARE, MEDICAID, SELFPAY ==
--- OUTSIDE RECORDS SUMMARY | 2024-12-07 11:10 | XMS_ITS | Encounter Summary ---
Author Organization [facility] Address [address] [place] [address] Care Team Providers Care Mammography Technologist Name Role Phone Triston Campos MD Primary Care Provider + [phone] Reason for Referral * Imaging (Routine) - Authorized Specialty Diagnoses / Procedures Referred By Khalif gr Referred To Contact Radiology Diagnoses History of kidney stones Procedures US Renal Complete Judie Borrero APRN [address] [place] [address] Phone: tel: fax: Referral ID Status Reason Start Date Expiration Date V isits Requested Visits Authorized [id number] Authorized 12/07/2024 06/08/2026 1 1 Reason for Visit * Reason Comments Follow-up The patient was note d to have an elevated blood pressure reading of (166/81). This was rechecked after 5 minutes and still found to be elevated with a reading of (.../...). The provider was notified and the patient was advised to follow-up with their primary care provider for further advice. Encounter Details Date Type Department Care Team ([facility] Contact Info) Description 12/07/2024 11:10 AM EDT Office Visit Medical Office Building Urology [facility] [address] [facility], [address] [place] [phone] Judie Borrero APRN [address] [place] [phone] History of kidney stones (Primary Dx) Social History Tobacco Use Types Packs/Day Years Used Date Smoking Tobacco: Former Cigarettes Smokeless Tobacco: Never Tobacco Cessation:Counseling Given: Not Answered Comments:Smoked for about 25 yrs. 3 ppd [...] and Family Not on file 02/21/2024 Attends Adventism Services Not on file 02/20 Active Member [...] place to sleep or slept in a jail (including now)? No 02/21/2024 AUDIT-C Answer Date [...] on file documented as of this encounter Last Filed Vital Signs Vital Sign Reading Time Taken Comments Blood Pressure 166/81 12/07/2024 10:03 AM EDT Pulse 85 12/07/2024 10:03 AM EDT Temperature - - Respiratory Rate - - Oxygen Saturation 94% 12/07/2024 10:03 AM EDT Inhaled Oxygen Concentration - - Weight 77.1 kg (170 lb) 12/07/2024 10:03 AM EDT Height 165.1 cm (5' 5 ) 12/07/2024 10:03 AM EDT Body Mass Index 28.29 12/07/2024 10:03 AM EDT documented in this encounter Functional Status * Over the past 2 weeks, how often have you been bothered by any of the following problems? Question Answer Date of Assessment Author Little interest or pleasure in doing things Not at all 12/07/2024 10:09 AM EDT Stacy Joy Feeling down, depressed, or hopeless Not at all 12/07/2024 10:09 AM EDT Stacy Joy Patient Health Questionnaire -2 Score 0 12/07/2024 10:09 AM EDT Stacy Joy documented as of this encounter Miscellaneous Notes * Progress Notes - Judie Borrero, ALEAH - 12/07/2024 11:10 AM EDT [facility] Urology Clinic Note 12/07/24 CC: History of Kidney Stones HPI: Maura Carrero is a 84 y.o. F with PMH significant for HTN, hypothyroidism, dementia, and septic shock 02/17 for an infected left ureteral stone. She is now s/p left URS laser lithotripsy for a 5 mm distal left ureteral stone 03/07 for her first stone. She presents today for 6 months follow up after CT stone. Daughter presents today who is her primary caregiver. Daughter denies patient having any UTI or stone symptoms today. Does have a h/o of recurrent UTI's (3-4 a year). Denies passing any stones since surgery. She denies any flank pain, GH, dysuria, or frequency today. Currently drinking boost, seltzer strawberry drink, 2-3 bottles of water daily, and two 8 oz cans of pepsi. PMHx: Past Medical History: Diagnosis Date Activity intolerance uses walker around house - uses wheelchair when out Anxiety Chronic kidney disease 02/18/[address] [facility] for septic shock with acute kidney injury due to kidney stone - discharged02/21/24. Dementia (CMS/[facility]) Dental disease dentures GERD (gastroesophageal reflux disease) Hyperlipidemia Hypertension Hypothyroidism Irritable bowel syndrome Seizures ([facility]) epilepsy - last 2022 Spinal stenosis neck and back - uses walker PSHx: Past Surgical History: Procedure Laterality Date KIDNEY STONE SURGERY NECK SURGERY for spinal stenosis URETEROSCOPY Left 03/07/2024 FHx: Family History Problem Relation Name Age of Onset Anesthesia problems Neg Hx Malig Hyperthermia Neg Hx SHx: Social History Socioeconomic History Marital status: Single Spouse name: Not on file Number of children: Not on file Years of education: Not on file Highest education level: Not on file Occupational History Not on file Tobacco Use Smoking status: Former Current packs/day: 0.50 Types: Cigarettes Smokeless tobacco: Never Tobacco comments: Smoked for about 25 yrs. 3 ppd at times. Quit 38 yrs ago. Vaping Use Vaping status: Never Used Substance and Sexual Activity Alcohol use: Not Currently Drug use: Never Sexual activity: Not on file Other Topics Concern Not on file Social History Narrative Not on file Social Drivers of Health Financial Resource Strain: Low Risk (01/17/2024) [facility] Overall Financial Resource Strain (CARDIA) Difficulty of Paying Living Expenses: Not hard at all Food Insecurity: No Food Insecurity (02/21/2024) Hunger Vital Sign Worried About Running Out of Food in the Last Year: Never true Ran Out of Food in the Last Year: Never true Transportation Needs: No Transportation Needs (02/21/2024) PRAPARE - Transportation Lack of Transportation (Medical): No Lack of Transportation (Non-Medical): No Physical Activity: Inactive (01/17/2024) Received from [facility] Exercise Vital Sign On average, how many days per week do you engage in moderate to strenuous exercise (like a brisk walk)?: 0 days On average, how many minutes do you engage in exercise at this level?: 0 min Stress: No Stress Concern Present (01/17/2024) Re[facility] from [facility] [place] of Occupational Health - Occupational Stress Questionnaire Feeling of Stress : Not at all Social Connections: Unknown (02/21/2024) Social Connection and Isolation Panel Frequency of Communication with Friends and Family: Not on file Frequency of Social Gatherings with Friends and Family: Not on file Attends Adventism Services: Not on file Active Member of Clubs or Organizations: Not on file Attends Club or Organization Meetings: Not on file Marital Status: Intimate Partner Violence: Patient Unable To Answer (02/21/2024) Humiliation, Afraid, Rape, and Kick questionnaire Fear of Current or Ex-Partner: Patient unable to answer Emotionally Abused: Patient unable to answer Physically Abused: Patient unable to answer Sexually Abused: Patient unable to answer Housing Stability: Low Risk (02/21/2024) Housing Stability Vital Sign Unable to Pay for Housing in the Last Year: No Number of Places Lived in the Last Year: 1 Unstable Housing in the Last Year: No OBHx: OB History No obstetric history on file. Physical Exam: Vitals: 12/07/24 1003 BP: (!) 166/81 Pulse: 85 SpO2: 94% General: Pleasant, alert, in no acute distress, well appearing. Patient is speaking in full sentences. ENT: No proptosis or eye lid lag. Normal hearing. Pulmonary: no increased work of breathing, wheezing, or signs of respiratory distress. Musculoskeletal: normal station. No CVAT according to patient. Able to move all extremities withoutweakness. Neuro: Facial muscles look symmetrical. Psychiatric: Mood and affect appeared normal. Labs: Lab Results Component Value Date BILIRUBINUR Negative 02/18/2024 KETONESU Negative 02/18/2024 Creatinine, Plasma (mg/dL) Date/Time Value 02/21/2024 0033 1.24 (H) eGFRcr (mL/min/1.73m*2) Date/Time Value 02/21/2024 0033 42.7 Total Calcium, Plasma (mg/dL) Date/Time Value 02/21/2024 0033 7.1 (L) 03/2024: Stone analysis: 90% calcium oxalate dihydrate, and 10% calcium phosphate. Imaging: Personally reviewed imaging below: 02/18/24 CT stone - 2 punctuate non obstructive calculi in the lower pole of the left kidney. 5 mm stone in the distal left ureter with mild upstream dilation. Mild dilation of the left renal pelvis.10 mm exophytic lesion arising from the interpolar region of right kidney could be a hemorrhagic cyst. 06/06/24 Renal US - Bilateral kidneys with parenchymal thinning and increased echogenicity consistent with medical renal disease.No hydronephrosis. No calculi detected. 12/07/24 CT Stone- 2 non obstructive calculi in the lower pole of the left kidney largest 3 mm. No hydronephrosis bilaterally. 8 mm exophytic right kidney interpolar region mass with indeterminate attenuation characteristics, unchanged size in the interval. Assessment: Maura Carrero is a 84 y.o. F with PMH significant for HTN, hypothyroidism, dementia, and kidney stones who presents for follow up after CT stone. Patient denies patient having any UTI or stone symptoms today. Recommended she continue general stone prevention strategies including increased hydration (goal urinary output of at least 2.5 L daily), citric acid supplementation in the form of 3 tablespoons of lemon juice added to water daily, and decreased sodium intake (<2400mg daily). Plan: - 6 months renal US -Continue increased hydration with 2.5 L daily of fluids primarily water and may have some sprite. Limit pepsi products. Addendum: Dr. Campos patients PCP sent staff message regarding findings on CT stone. Lymph Nodes/Vasculature: Atherosclerotic abdominal aorta with focal dilatation in its infrarenal segment measuring up to 2.6 cm (102, 4). Atherosclerotic calcifications in the mesenteric, renal, and bilateral iliac arteries. No suspicious lymph nodes. 20 minutes were spent today on review of patient's medical history, obtaining history, exam, reviewof any relevant results, and discussion of pathophysiology with appropriate plan with counseling given to patient. ALEAH Ramirez documented in this encounter Plan of Treatment Upcoming Encounters Date Type Department Care Team (Late st Contact Info) Description 06/14/2025 8:30 AM EST Appointment [facility] Ultrasound [address] [place] [phone] 06/14/2025 10:30 AM EST Office Visit Medical Office Building Urology [address] [facility], [address] [place] [address] Judie Borrero APRN [address] [place] [phone] Scheduled Orders Name Type Priority Associated Diagnoses Orde r Schedule US Renal Complete Imaging Routine History of kidney stones Expected: 06/08/2025 (Approximate), Expires: 06/08/2026 documented as of this encounter Visit Diagnoses Diagnosis History of kidney stones- Primary documented in this encounter Additional Health Concerns Infection Onset Date Last Indicated Resolved Time MRSA Comment:Added from external infection. Source: [facility] [employer] [facility]. 09/03/2015 02/18/2024 Assessment Noted Time A fall risk assessment has been complete d for the patient 12/07/2024 10:09 AM EDT A Body Mass Index follow-up plan has been documented for the patient 12/07/2024 10:32 AM EDT documented as of this encounter Care Teams Mammography Technologist Relationship Specialty Start Date End Date Triston Campos MD [address] [place] [facility]31 PCP - General 11/15/20 documented as of this encounter
--- OUTSIDE RECORDS SUMMARY | 2025-01-09 09:40 | XMS_ITS ---
Author Organization [facility] Address [address] [facility] [address] [place] [id number] Care Team Providers Care Certified Meeting Professional Name Role Phone Triston Campos Primary Care Provider [phone] Results Component Value Reference Range Notes Urinalysis - Inhouse Reviewed date:01/09/2025 07:35:00 PM Interpretation: Performing Lab: Notes/Report: Color/Clarity yellow/clear Leuk Neg Nitrite Neg Urobili 3.2 Protein Neg pH 5.5 Blood Neg Sp. Gr. 1.020 Ketone Neg Bili Neg Gluc Neg P-Culture, Urine Reviewed date:01/16/2025 01:36:03 PM Interpretation:suggest contamination, Specimen recollection is recommended Performing Lab: Notes/Report: Test performed by [facility], [employer] [address] [place] [address] , [address], [place] [address] Adrian Gilbert MD, Software Licensing Specialist CLIA: [id number] Specimen Source Urine - Void Culture, Urine [...] Provider Diagnosis [facility] [address] [facility] [address] [place] [phone] 01/09/2025 Triston Campos Chronic UTI N 39.0 Assessments Encounter Date Diagnosis (ICD Code) Assessment Notes Treatment Notes Treatment Clinical Notes Section Notes 01/09/2025 Chronic UTI (ICD-10 - N39.0) Plan Of Treatment No Information Progress Notes * Maura CARRERODOB:1940 (84 yo F)Acc No.[id number]:01/09/2025 Progress notes Patient: Maura SHULTZ Provider: Briana Campos M.D. :1940 A ge:84 Y S ex:Female Date:01/09/2025 Address:[facility] [address], [place], [id number] Subjective: * Chief Complaints: * 1 . [...] Information: * Visit Code: * Procedure Codes: 07746 Urinalysis, no micro. * Electronic signature of Fidelia Campos MD on 02/08/2025 at 12:59 PM EDT Sign off status: Pending * Provider: Briana Campos M.D. Date: 0 01/09/2025 Generated for [facility]aredes/Hern[facility]/Luis on: 0 02/08/2025 12:59 PM EDT
--- OUTSIDE RECORDS SUMMARY | 2025-01-17 04:15 | XMS_ITS ---
Author Organization [facility] Address [address] [facility] [address] [place] [id number] Care Team Providers Care Brine Supervisor Name Role Phone Beth Triston Primary Care [...] Provider Diagnosis [facility] [address] [facility] [address] [place] [id number] 01/17/2025 Triston Campos Chronic UTI N 39.0 Assessments Encounter Date Diagnosis (ICD Code) Assessment Notes Treatment Notes Treatment Clinical Notes Section Notes 01/17/2025 Chronic UTI (ICD-10 - N39.0) Plan Of Treatment No Information Progress Notes * Maura CARRERODOB:1940 (84 yo F)Acc No.[id number]:01/17/2025 Patient: Maura SHULTZ Provider: Briana Campos M.D. :1940 A ge:84 Y S ex:Female Date:01/17/2025 Address:[facility] [address], [place], [id number] Subjective: * Chief Complaints: * 1 . [...] Information: * Visit Code: * Procedure Codes: 14386 Urinalysis, no micro. * Electronic signature of Fidelia Campos MD on 02/08/2025 at 12:59 PM EDT Sign off status: Pending * Provider: Briana Campos M.D. Date: 0 01/17/2025 Generated for [facility] paredes/Hernán/Luis on: 0 02/08/2025 12:59 PM EDT
--- OUTSIDE RECORDS SUMMARY | 2025-02-02 11:00 | XMS_ITS ---
Author Organization [facility] Address [address] [facility] [address] [place] [id number] Care Team Providers Care Textile Supervisor Name Role Phone Triston Campos Primary Care Provider [phone] Allergies Allergen (clinical drug ingredient) Drug/Non Drug [...] growth Performing Lab: Notes/Report: Test performed by [employer] , [address], [place] [address] Adrian Gilbert MD, Battery Repairer CLIA: [id number] Specimen Source Urine - Void Culture, Urine [...] day; Duration: 30 day(s) Active Vital Signs Blood pressure systolic 124 mm Hg 02/03/20 25 Blood pressure diastolic 68 mm Hg 025 Height 62 in 02/02/2025 Weight 179 lbs 02/02/2025 BMI 32.74 kg/m2 02/02/2025 Encounters Encounter Location Date Provider Diagnosis [facility] [address] [facility] [address] [place], [place] [id number] 02/02/2025 Triston [place] Nausea R11.0 and Pyuria R82.81 Assessments Encounter [...] Notes * Maura CARRERODOB:1940 (84 yo F)Acc No.[id number]:02/02/2025 Progress Notes Patient: Maura SHULTZ Provider: Briana Campos M.D. :1940 A ge:84 Y S ex:Female Date:02/02/2025 Address:[facility] [address] [place], [id number] Subjective: * Chief Complaints: * 1 . [...] Codes: G 2211 Complex e/m visit add on * Follow Up: v ia phone to report progress * Images: Billing Information: * Visit Code: 13356 Office Visit, Est Pt., Level 3. * Procedure Codes: G2211 Complex e/m visit add on. * Electronic signature of Fidelia Campos MD on 02/08/2025 at 12:59 PM EDT Sign off status: Pending * Provider: Briana Campos M.D. Date: 0 02/02/2025 Generated for [facility]/eTransmitting on: 0 02/08/2025 12:59 PM EDT History and Physical Notes * [...]
--- NOTE | 2025-02-08 12:59 | MR_ITS ---
FINAL REPORT CLINICAL HISTORY: RT KNEE PAIN. knee instability. COMPARISON: None FINDINGS: Multi planar MR imaging was performed of the right knee. The anterior and posterior cruciate ligaments are intact. The quadriceps and patellar tendons are intact. There is linear abnormal signal in the posterior horn of the lateral meniscus consistent with a tear. The medial and lateral collateral ligaments appear intact. The medial and lateral retinacula appear intact. There is no evidence of bone marrow edema. There is grade 1 chondromalacia along the undersurface of the lateral articular facet of the patella. There is a 4 cm popliteal cyst. IMPRESSION: Full-thickness tear posterior horn lateral meniscus. 4 cm popliteal cyst. 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 Reviewed, Interpreted and Dictated by Jorge Olvera MD Transcribed by Ilana Yo Authenticated and [facility]
--- OUTSIDE RECORDS SUMMARY | 2025-02-08 12:59 | XMS_ITS | Clinical Summary ---
Author Organization [facility] Address [address] [place] [address] Care Team Providers Care Geospatial Information Technologist Name Role Phone Triston Campos MD Primary Care Provider + [phone] Allergies Active Allergy Reactions Criticality Noted Date [...] Department Care Team Description 12/12/2024 Results Follow-Up [facility] Urology [address] [place] [id number] Judie Borrero APRN 12/07/2024 11:10 AM EDT Office Visit Medical Office Building Urology [address], [address] [place] [address] Judie Borrero, [employer]ER History of kidney stones (Primary Dx) 12/07/2024 9:06 AM EDT - 12/07/2024 11:59 PM EDT Hospital Encounter [facility] [address] [place] [address] History of kidney stones Discharge [...] and Family Not on file 02/21/2024 Attends [employer] Not on file 02/20 Active Member [...] place to sleep or slept in a retirement (including now)? No 02/21/2024 AUDIT-C Answer Date [...] Info) Description 06/14/2025 8:30 AM EST Appointment [facility] Ultrasound [address] [place] [address] 06/14/2025 10:30 AM EST Office Visit Medical Office Building Urology [address], [address] [place] [address] Noomen, Judie M, [employer] [address] [place] [address] Health Maintenance Due Date Last Done Comments [facility]-Bone Density Scan 1940 [facility]-Medicare Annual Wellness (AWV) 1940 [facility]-/Child/Adol SDOH Screenings 1940 [facility]- SDOH Screenings 1956 [facility]-Adult SDOH Screenings 1956 [facility]-DTaP,Tdap,and Td Vaccines (1 - Tdap) 1957 [facility]-Zoster Vaccines (1 of 2) 1988 [facility]-RSV Vaccine: 60+ Years or (1 - 1-dose 75+ series) 2013 [id number] Vaccine ( - season) 2024 05/09/2021, 09/11/2020, [...] this topic Medical Devices Implanted Type Area Client Technical Professional Device Identifier Shelf Expiration Date Model / Serial / Lot Stent Ureteral Double Pigtail Pos 6fr 22cm - [id number] - [id number] Implanted:Qty: 1 on 02/18/2024 by Maru Persaud MD at [facility] [id number] 05/19/2025 [id number] / [id number] / Stent Ureteral Double Pigtail Pos 5fr 22cm - [id number] Implanted:Qty: 1 on 03/07/2024 by Maru Persaud MD at [facility] [id number] 09/01/2026 [id number] / / [id number] Procedures Procedure Name Priority Date/Time Associated Diagnosis [...] 12/07/2024 12:02 PM us Judie Calderón Adair [employer] IMG CT PROCEDURES Final Res ult from Last 3 Months Additional Health Concerns Infection Onset Date 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 Source: [facility]. 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 She states that she is power of alum plant supervisor over her mother's medical decision making. 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 Therefore, daughter states her wishes would be to be designated as Full Code. Question Answer Comments Patient has decision-making capacity? No Healthcare Surrogate: Adult child of the patient Name of Healthcare Surrogate: Lila Go Care Teams Geospatial Information Technologist Relationship Specialty Start Date End Date Triston Campos MD [address] [place] [address] PCP - General 11/15/20
--- OUTSIDE RECORDS SUMMARY | 2025-02-08 12:59 | XMS_ITS | Patient Health Record ---
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 Gr. 1.020 Ketone neg Bili neg Gluc neg M-Miscellaneous Test Reviewed date:04/05/2024 11:34:56 AM Interpretation: Performing Lab: Notes/Report: [facility] #[id number] MISCT SCANNED IMAGE IMAGE SENT TO MEDICAL RECORDS TO BE SCANNED Urinalysis - Inhouse Reviewed date:01/09/2025 07:35:00 PM Interpretation: Performing Lab: Notes/Report: Color/Clarity yellow/clear Leuk Neg Nitrite Neg Urobili 3.2 Protein Neg pH 5.5 Blood Neg Sp. Gr. 1.020 Ketone Neg Bili Neg Gluc Neg P-Culture, Urine Reviewed date:01/16/2025 01:36:03 PM Interpretation:suggest contamination, Specimen recollection is recommended Performing Lab: Notes/Report: Test performed by [facility] [address] [place] [address] Dr[address], [place] [id number] Adrian Gilbert MD, [place] CLIA: [id number] Specimen Source Urine - Void Culture, Urine See Below Final Report : 10,000-15,000 CFU/ml Mixed Gram Positive and Negative Organisms Three or more organisms present likely representing contamination during collection by patient's urogenital, skin, and/or fecal abdi. Organism identification and sensitivity assessment are not recommended. Specimen recollection is recommended. P-Basic Metabolic Panel (BMP ) Reviewed date:02/18/2024 08:56:46 AM Interpretation:bun 68,co2 20, creat 3.66, gluc 138, Na 134, gfr 12 Performing Lab: Notes/Report: Test performed by [facility] , [facility], [place] [id number] Adrian Gilbert MD, [place] CLIA: [id number] Sodium 134 135-145 mmol/L Potassium 5.0 3.5-5.3 mmol/L Chloride 99 97-108 mmol/L CO2 20 22-32 mmol/L Glucose 138 65-99 mg/dL BUN 68 8-23 mg/dL Creatinine 3.66 0.50-1.00 mg/dL Calcium 9.9 8.6-10.4 mg/dL eGFR by Creatinine 12 >59 mL/min/1.73m2 Urinalysis - Inhouse Reviewed date:05/10/2024 01:10:57 PM Interpretation: Performing Lab: Notes/Report: Color/Clarity yellow/clear Leuk trace Nitrite neg Urobili 3.2 Protein neg pH 5.5 Blood neg Sp. Gr. 1.020 Ketone neg Bili neg Gluc neg P-Basic Metabolic Panel (BMP ) Reviewed date:05/10/2024 01:09:01 PM Interpretation:gluc 111, bun 36, creat 1.42, gfr 36 Performing Lab: Notes/Report: Test performed by [facility] , [facility], [place] [address] Adrian Gilbert MD, [place] CLIA: [id number] Sodium 143 135-145 mmol/L Potassium 4.3 3.5-5.3 mmol/L Chloride 103 97-108 mmol/L CO2 28 22-32 mmol/L Glucose 111 65-99 mg/dL BUN 36 8-23 mg/dL Creatinine 1.42 0.50-1.00 mg/dL Calcium 9.9 8.6-10.4 mg/dL eGFR by Creatinine 36 >59 mL/min/1.73m2 TEN-UTI panel Reviewed date:05/11/2024 02:55:20 PM Interpretation:Abnormal Performing Lab: Notes/Report: Abnormal CBC Venipuncture (in house) Reviewed date:11/11/2024 10:26:00 [...] 34 Performing Lab: Notes/Report: Test performed by [facility] , [address], [place] [address] Adrian Gilbert MD, [place] CLIA: [id number] Sodium 143 135-145 mmol/L Potassium 4.1 3.5-5.3 [...] Interpretation:Normal Performing Lab: Notes/Report: Test performed by [facility] [address] [place] [address] , [address], [place] [address] Adrian Gilbert MD, [place] CLIA: [id number] TSH reflex to FT4 2.68 0.43-5.25 mU/L [...] - 38 plat 199 100 - 400 TEN-UTI panel Reviewed date:01/19/2025 08:37:21 AM Interpretation:Negative Performing Lab: Notes/Report: Negative CBC Venipuncture (in house) Reviewed date:02/16/2024 03:47:08 [...] - 38 platlet 241 100 - 400 P-Culture, Urine Reviewed date:02/05/2025 05:53:45 PM Interpretation:No growth Performing Lab: Notes/Report: Test performed by [facility] [address] [place] [address] , [address], [place] [id number] Adrian Gilbert MD, [place] CLIA: [id number] Specimen Source Urine - Void Culture, Urine See Below Final Report : No growth CBC Fingerstick (in house) Reviewed date:02/02/2025 09:37:04 [...] - 38 plat 251 100 - 400 Urinalysis - Inhouse Reviewed date:02/02/2025 09:37:15 PM Interpretation: Performing Lab: Notes/Report: Color/Clarity Yellow/Clear Leuk Trace Nitrite Neg Urobili 3.2 Protein Neg pH 5.5 Blood Neg Sp. Gr. 1.020 Ketone Neg Bili Neg Gluc Neg TEN-UTI panel Reviewed date:03/16/2024 10:38:04 AM Interpretation: Performing Lab: Notes/Report: P-Comprehensive Metabolic Pa krystal (CMP) Reviewed date:02/25/2024 09:33:16 AM Interpretation:gluc 129, bun 24, Cr 1.18, gfr 45 Performing Lab: Notes/Report: Test performed by [facility] [address] [place] [address] , [address], [place] [address] Adrian Gilbert MD, [place] CLIA: [id number] Sodium 143 135-145 mmol/L Potassium 4.1 3.5-5.3 [...] 0.3 <0.2-1.2 mg/dL A/G Ratio 1.2 1.1-2.5 Urinalysis - Inhouse Reviewed date:03/13/2024 03:07:45 PM [...] 40 Performing Lab: Notes/Report: Test performed by [facility] [address] [place] [address] , [address], [place] [address] Adrian Gilbert MD, [place] CLIA: [id number] Sodium 141 135-145 mmol/L Potassium 4.4 3.5-5.3 [...] 09:30:30 AM Interpretation:Abnormal Performing Lab: Notes/Report: Abnormal LC-Brivaracetam level serum Reviewed date:07/06/2024 08:50:12 AM Interpretation:3.86 Performing Lab:[facility] [employer] [facility], [address] [place] [id number], Phone - [phone], Director - [facility] Notes/Report: Brivaracetam 3.86 0.20 - 2.00 ug/mL [...] Gluc neg CBC Venipuncture (in house) Reviewed date:08/12/2024 01:27:24 [...] Interpretation:1402 Performing Lab: Notes/Report: Test performed by [facility] , [address], [place] [address] Adrian Gilbert MD, C[place]er CLIA: [id number] Vitamin B12 2605 201-3094 pg/mL P-Comprehensive Metabolic Pa krystal (CMP) Reviewed date:08/12/2024 01:27:24 PM Interpretation:bun 35, cr 1.35, gfr 38 Performing Lab: Notes/Report: Test performed by [facility] [address] , [address], [place] [address] Adrian Gilbert MD, [place] CLIA: [id number] Sodium 142 135-145 mmol/L Potassium 5.1 3.5-5.3 [...] growth Performing Lab: Notes/Report: Test performed by [facility] [address] , [address], [place] [address] Adrian Gilbert MD, [place] CLIA: [id number] Specimen Source Urine - CC Culture, Urine See Below Final Report : No growth P-Magnesium Reviewed date:08/12/2024 01:27:24 PM Interpretation: Normal Performing Lab: Notes/Report: Test performed by [facility] [address] , [address], [place] [address] Adrian Gilbert MD, [place] CLIA: [id number] Magnesium 2.3 1.6-2.4 mg/dL P-Phosphorus Reviewed date:08/12/2024 01:27:24 PM Interpretation: Normal Performing Lab: Notes/Report: Test performed by [facility] [address] [place] [address] , [place] [address] Adrian Gilbert MD, [place] CLIA: [id number] Phosphorus 3.3 2.5-4.5 mg/dL P-TSH reflex to FT4 Reviewed date:08/12/2024 01:27:24 PM Interpretation: Normal Performing Lab: Notes/Report: Test performed by [facility] [address] [place] [address] , [facility] [place] [address] Adrian Gilbert MD, [place] CLIA: [id number] TSH reflex to FT4 4.20 0.43-5.25 mU/L P-Vitamin D 25-Hydroxy Reviewed date:08/12/2024 01:27:24 PM Interpretation: Normal Performing Lab: Notes/Report: Test performed by [facility] [address] [place] [address] , [place] [address] Adrian Gilbert MD, [place] CLIA: [id number] Vitamin D 25-Hydroxy 67.3 30.0-100.0 ng/mL Interpretation [...] recommended Performing Lab: Notes/Report: Test performed by [facility] [address] [place] [address] , [place] [address] Adrian Gilbert MD, [place] CLIA: [id number] Specimen Source Urine - Void Culture, Urine [...] Growth Performing Lab: Notes/Report: Test performed by [facility] [address] [place] [address] , [address], [place] [id number] Adrian Gilbert MD, [place] CLIA: [id number] Specimen Source Urine - Void Culture, Urine See Below Final Report : No Significant Growth Urinalysis - Inhouse Reviewed date:01/17/2025 06:16:40 PM Interpretation: Performing Lab: Notes/Report: Color/Clarity Yellow/Clear Leuk Trace Nitrite Neg Urobili 3.2 Protein Neg pH 5.5 Blood Neg Sp. Gr. 1.020 Ketone Neg Bili Neg Gluc Neg Medications Medication SIG (Take, Route, Frequency, Duration) Notes Start Date End Date Status hydrOXYzine HCl 25 MG 1 tablet as needed Orally Two times a day 11/15/2024 Active Irbesartan-hydroCHLOROthiazi de 300-12.5 MG TAKE ONE TABLET BY MOUTH EVERY DAY; Duration: 90 Active Lactulose 10 GM/15ML TAKE 15ML BY MOUTH ONCE DAILY NEEDED; Duration: 30 Active Briviact 75 MG 1 tab(s) orally Twic e a day; Duration: 90 days 10/18/2024 Active Gabapentin 300 MG 2 capsules orally 2 times daily 07/28/2024 Active Docusate Sodium 250 mg TAKE ONE CAPSULE BY MOUTH TWICE DAILY NEEDED; Duration: 30 Active Azelastine HCl 137 MCG/SPRAY 2 puffs (1 spray in each nostril) Nasally Twice a day 06/29/2024 Active Ondansetron HCl 4 MG 1 tablet Orally 3 times a day As needed 02/02/2025 Active MiraLax 17 GM/SCOOP 1 scoop mixed with 8 ounces of fluid Orally Once a day 06/29/2024 Active Triamcinolone Acetonide 0.1 % 1 application Externally Twice a day 02/24/2024 Active oxyCODONE HCl 10 MG 1 tab(s) orally 2 ti mes a day; Duration: 30 days 01/23/2025 Active Diclofenac Sodium 1 % 4 grams Externally four times a day as needed 03/28/2024 Active Memantine HCl 5 mg 1 tablet orally twic e a day; Duration: 90 days Active Albuterol Sulfate HFA 108 (90 Base) MCG/ACT 2 puff(s) inhaled qid and q2h prn; Duration: 30 days 04/14/2022 Active Donepezil HCl 5 mg TAKE ONE TABLET BY M OUTH EVERY DAY AT BEDTIME; Duration: 90 Active Lumbar Back Brace/Support Pad - as directed 12/11/2022 Active Esomeprazole Magnesium 40 mg TAKE ONE CA PSULE BY MOUTH EVERY DAY; Duration: 90 Active Furosemide 20 mg 1 tablet Orally Once a day; Duration: 90 days Active Vitamin B 12 500 MCG 1 tab(s) orally onc e a day 03/06/2020 Active Celecoxib 100 mg 1 capsule Orally Onc e a day; Duration: 90 days Active Myrbetriq 50 mg 1 tablet Orally Once a day; Duration: 90 days Active Vitamin D3 50 MCG (2000 UT) 1 tab(s) ora lly twice a day Active tiZANidine HCl 2 MG 1 tab(s) orally ever y 8 hours as needed Active Walker - as directed Active DULoxetine HCl 60 mg 1 capsule orally on ce a day; Duration: 30 days Active Lactase - as directed Active Levothyroxine Sodium 25 MCG 1 tab(s) ora lly once a day; Duration: 90 days Active Wheelchair - as directed Activ e Trulance 3 mg TAKE ONE TABLET BY M OUTH EVERY DAY; Duration: 90 Active Commode Bedside - as directed Active Alendronate Sodium 70 mg 1 tablet by izabel th once weekly; Duration: 84 days Active Tamsulosin HCl 0.4 MG 1 capsule Orally O nce a day; Duration: 30 day(s) Active LORazepam 1 MG 1 tab(s) orally 2 ti mes a day; Duration: 30 day(s) 11/20/2024 Active Phenazopyridine HCl 200 MG 1 tablet afte r meals Orally Three times a day; Duration: 2 day(s) Active Meclizine HCl 25 MG 1 tablet as needed Orally every 12 hrs; Duration: 90 days Active Immunizations Vaccine Route Administration Date Status [...] 04/12/2023 Administered xFlu shot- 6months-36 months of fyd-BNSN-IHSS-triva lent Unknown 03/22/2012 Administered xFluzone (6mos and older)-trivalent Unknown 06/11/2007 Administered xFluzone (6mos and older)-trivalent Unknown 05/21/2008 Administered xFluzone High Dose-private (65yr&older) IM Intramuscular 04/10/2014 Administered Problems Problem Type SNOMED Code ICD Code Onset Dates Problem Status W/U Status Risk Notes Problem Essential hypertension (03551853) Essential (primary) hypertension (I10) Active confirmed Problem Essential hypertension (63574037) Essential hypertension (I10) Active confirmed Problem Hypertriglyceridemia (004284765) Hypertriglyceridemia (E78.1) Active confirmed Problem Anxiety (74390030) Anxiety (F41.9) Active confi rmed Problem Dysuria (88376292) Dysuria (R30.0) Active confi rmed Problem Mixed anxiety and depressive disorder (625006285) Depression with anxiety (F41.8) Active confirmed Problem Memory loss (42245357) Memory loss (R41.3) Active confirmed Problem Seizure disorder (085786917) Seizure disorder (G40.909) Active confirmed Problem Sciatica (71639904) Lumbago with sciatica, right side (M54.41) Active confirmed Problem Fatigue (98632511) Other fatigue (R53.83) Active confirmed Problem Sciatica (17866480) Lumbago with sciatica, left side (M54.42) Active confirmed Problem Urge incontinence of urine (96178730) Urge incontinence (N39.41) Active confirmed Problem Frequency of micturition (056476257) Frequency of micturition (R35.0) Active confirmed Problem Malaise (388846211) Other malais e (R53.81) Active confirmed Problem Chronic pain (67880378) Other chronic pain (G89.29) Active confirmed Problem Lumbosacral spondylosis without myelopathy (04939357) Lumbosacral radiculopathy due to degenerative joint disease of spine (M47.27) Active confirmed Problem Acquired hypothyroidism (888300874) Acquired hypothyroidism (E03.9) Active confirmed Problem Low back pain (586458313) Bilateral low back pain without sciatica (M54.5) Active confirmed Problem Lumbar spinal stenosis (31301500) Spinal stenosis, lumbar (724.02) Active confirmed Problem Kidney stone (42696889) Kidney stone (N20.0) Active confirmed Problem Gastroesophageal reflux disease (523183937) Gastroesophageal reflux disease, esophagitis presence not specified (K21.9) Active confirmed Problem Osteoporosis (82336134) Osteoporosis (M81.0) Active confirmed Problem Ataxia (16597179) Ataxia (R27.0) Active confirm ed Problem Altered mental statu s (301610708) Altered mental status, unspecified altered mental status type (R41.82) Active confirmed Problem Recurrent falls (096111536) Frequent falls (R29.6) Active confirmed Problem Body mass index 30.0 0 to 34.99 (170023122279258) BMI 34.0-34.9,adult (Z68.34) Active confirmed Problem Dementia (67028240) Dementia wit hout behavioral disturbance (F03.90) Active confirmed Problem Chronic idiopathic constipation (04294838) Chronic idiopathic constipation (K59.04) Active confirmed Problem Lumbosacral spondylosis without myelopathy (60967601) Osteoarthritis of lumbar spine, unspecified spinal osteoarthritis complication status (M47.816) Active confirmed Problem Hearing loss (56836443) Hearing loss of left ear, unspecified hearing loss type (H91.92) Active confirmed Problem Seasonal allergic rhinitis (802702862) Seasonal allergic rhinitis, unspecified trigger (J30.2) Active confirmed Problem Allergic rhinitis (20306722) Allergic rhinitis, unspecified seasonality, unspecified trigger (J30.9) Active confirmed Problem Chronic kidney disease stage 3B (disorder) (456427744) Stage 3b chronic kidney disease (N18.32) Active confirmed Problem Low back pain (731119627) Low back pain, unspecified (M54.50) Active confirmed Problem Chronic kidney disease stage 3A (disorder) (515338809) Stage 3a chronic kidney disease (CKD) (N18.31) Active confirmed Problem Localized, primary osteoarthritis of the shoulder region (745706870) 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) Active confirmed Vital Signs Heart Rate 102 /min 11/17/2024 Blood pressure diastolic 68 mm Hg 02/02/2025 Height 62 in 02/02/2025 Blood pressure systolic 124 mm Hg 02/02/2025 Weight 179 lbs 02/02/2025 BMI 32.74 kg/m2 02/02/2025 Encounters Encounter Location Date Provider Diagnosis [facility] [address] [place], [place] [id number] 02/16/2024 Triston Campos Acute UTI N39.0 and Renal insufficiency N28.9 [facility] [address] [facility] [address] [place], [place] [id number] 02/24/2024 Triston Colden Kidney stone N20.0 ; Acute UTI N39.0 ; RUFINA (acute kidney injury) N17.9 and Irritant contact dermatitis, unspecified trigger L24.9 [facility] [address] [place], [place] [id number] 03/10/2024 Triston Colden Acute UTI N39.0 [facility] [address] [place], [place] [id number] 03/28/2024 Triston Colden Urinary frequency R3 5.0 ; Stage 3a chronic kidney disease (CKD) N18.31 ; Seizure disorder G40.909 and Pain in right shoulder M25.511 [facility] [address] [place], [place] [id number] 05/09/2024 Triston Colden Pyuria R82.[address] age 3b chronic kidney disease N18.32 [facility] [address] [place], [place] [id number] 06/29/2024 Triston Colden Seizure disorder G40 .909 ; Seasonal allergic rhinitis, unspecified trigger J30.2 and Chronic idiopathic constipation K59.04 [facility] [address] [place], [place] [id number] 08/11/2024 Triston Colden Fatigue, unspecified type R53.83 ; Anorexia R63.0 ; Stage 3b chronic kidney disease N18.32 ; Open wound of right forearm, initial encounter S51.801A ; Pyuria R82.81 ; Acute abdominal pain R10.9 ; Urinary tract infection without hematuria, site unspecified N39.0 and Urinary frequency R35.0 [facility] [address] [facility] [address] [place] [id number] 09/06/2024 Triston Colden Frequent UTI N39.0 [facility] [address] [facility] [address] [place], [place] [id number] 10/25/2024 Triston Colden Acute UTI N39.0 ; Se izure disorder G40.909 ; Acquired hypothyroidism E03.9 ; Anxiety F41.9 ; Essential (primary) hypertension I10 ; Low back pain, unspecified M54.50 ; Dementia without behavioral disturbance F03.90 and BMI 34.0-34.9,adult Z68.34 [facility] [address] [place], [place] [id number] 10/31/2024 Triston Colden Urinary tract infect ion without hematuria, site unspecified N39.0 [facility] [address] [place], [place] [id number] 11/10/2024 Triston Colden Frequent UTI N39.0 ; Fatigue, unspecified type R53.83 and Stage 3b chronic kidney disease N18.32 [facility] [address] [place], [place] [id number] 11/17/2024 Triston Colden Acute UTI N39.0 and Fever, unspecified R50.9 [facility] [address] [place], [place] [id number] 01/09/2025 Triston Colden Chronic UTI N39.0 [facility] [address] [place] [id number] 01/17/2025 Triston Colden Chronic UTI N39.0 [facility] [address] [place] [id number] 02/02/2025 Triston Colden Nausea R11.0 and Pyu yash R82.81 [facility] [address] [place], [place] [id number] 02/18/2024 Triston Colden [facility] [address] [place] [id number] 02/21/2024 Triston Colden [facility] [address] [place] [id number] 02/25/2024 Triston Colden [facility] [address] [place] [id number] 03/07/2024 Triston Colden [facility] [address] [place] [id number] 03/16/2024 Triston Colden [facility] [address] [place], [place] [id number] 03/30/2024 Leena Crowdy [facility] [address] [place] [id number] 04/03/2024 Triston Colden [facility] [address] [place], [place] [id number] 05/08/2024 Triston Colden Depression with anxi ety F41.8 [facility] [address] [place], [place] [id number] 05/10/2024 Triston Colden [facility] [address] [place], [place] [id number] 06/15/2024 Triston Colden [facility] [address] [place] [id number] 07/06/2024 Triston Colden [facility] [address] [place] [id number] 07/18/2024 Triston Colden Low back pain, unspecified M54.50 [facility] [address] [place] [id number] 07/27/2024 Triston Colden [facility] [address] [place], [place] [id number] 08/12/2024 Triston Colden [facility] [address] [place], [place] [id number] 08/17/2024 Triston Colden Depression with anxi ety F41.8 and Low back pain, unspecified M54.50 [facility] [address] [place], [place] [id number] 09/26/2024 Triston Colden Low back pain, unspecified M54.50 [facility] [address] [place] [id number] 10/18/2024 Triston Colden Seizure disorder G40 .909 [facility] [address] [place], [place] [id number] 10/30/2024 Triston Colden [facility] [address] [place], [place] [id number] 11/14/2024 Triston Colden [facility] [address] [place], [place] [id number] 11/15/2024 Triston Colden [facility] [address] [place], [place] [id number] 11/20/2024 Triston Colden Depression with anxi ety F41.8 [facility] [address] [place], [place] [id number] 11/22/2024 Triston Colden [facility] [address] [place], [place] [id number] 01/23/2025 Triston Colden Low back pain, unspecified M54.50 Assessments Encounter Date Diagnosis (ICD Code) Assessment Notes Treatment Notes Treatment Clinical Notes Section Notes 02/16/2024 Renal insufficiency (ICD-10 - N28.9) 02/16/2024 Acute UTI (ICD-10 - N39.0) Patient unable to provide a urine sample today in office. Will start treatment for presumed UTI due to symptoms and elevated WBC count and can collect urine sample at a later time 02/24/2024 Kidney stone (ICD-10 - N20.0) Patient to follow up with urology at [place] for further treatment of her kidney stone [...] G40.909) 10/25/2024 Acute UTI (ICD-10 - N39.0) 11/17/2024 Fever, unspecified (ICD-10 - R50.9) 11/17/2024 Acute UTI (ICD-10 - N39.0) Urine PCR panel reviewed in office today with patient's daughter. Patient seems to have a partially treated infection 11/20/2024 Depression with anxiety (ICD-10 - F41.8) 01/09/2025 Chronic UTI (ICD-10 - N39.0) 01/17/2025 Chronic UTI (ICD-10 - N39.0) 01/23/2025 Low back pain, unspecified (ICD-10 - M54.50) 02/02/2025 Nausea (ICD-10 - R11.0) 02/02/2025 Pyuria (ICD-10 - R82.81) 10/31/2024 Urinary tract infection without hematuria, site [...] RUFINA (acute kidney injury) (ICD-10 - N17.9) 02/24/2024 Irritant contact dermatitis, unspecified trigger (ICD-10 [...] Date MEDICARE PART B [address] [address] [place] [address] [id number] Maura Carrero Self - patient is the insured MEDICAID [email or web address] [address] [place] [id number] Maura Carrero Self - patient is the [...]
--- OUTSIDE RECORDS SUMMARY | 2025-02-08 12:59 | XMS_ITS | Encounter Summary ---
Author Organization Healthcare Address [address] [place] [address] Care Team Providers Care Water [employer]er Systems Superintendent Name Role Phone Triston Campos MD Primary Care Provider + [phone] Encounter Details Date Type Department Care Team (Late st Contact Info) Description 12/12/2024 Results Follow-Up [facility] Urology [address] [place] [address] NoJudie thrasher M, BELL CLE[employer] [address] [place] [address] Social History Tobacco Use Types [...] and Family Not on file 02/21/2024 Attends [employer] Not on file 02/20 Active Member [...] place to sleep or slept in a [facility] (including now)? No 02/21/2024 AUDIT-C Answer Date [...] Info) Description 06/14/2025 8:30 AM EST Appointment [facility] Ultrasound [address] [place] [id number] 06/14/2025 10:30 AM EST Office Visit Medical Office Building Urology [address] [facility] [address], [address] [place] [address] Noomen, Judie M, BE[employer] CLE[employer]ER [address] [place] [address] documented as of this encounter Visit Diagnoses Not on filedocumented in this encounter Additional Health Concerns Infection Onset Date Last Indicated Resolved Time MRSA Comment:Added from external infection. Source: [facility]. 09/03/2015 02/18/2024 Assessment Noted Time A fall risk assessment has been complete d for the patient 12/07/2024 10:09 AM EDT A Body Mass Index follow-up plan has been documented for the patient 12/07/2024 10:32 AM EDT documented as of this encounter Care Teams [employer] Superintendent Relationship Specialty Start Date End Date Triston Campos MD [address] [address] PCP - General 11/15/20 documented as of this encounter
--- OUTSIDE RECORDS SUMMARY | 2025-02-08 12:59 | XMS_ITS | Clinical Summary ---
[facility] Address [address] [place] [address] Care Team Providers Care Drug Abuse Counselor Name Role Phone Provider, No Known Primary Care Provider [phone] Medications methocarbamol (ROBAXIN) 750 MG tablet TAKE [...] MRSA Comment:nares screen 09/03/2015 09/03/2015 Care Teams Drug Abuse Counselor Relationship Specialty Start Date End Date Provider, [place] [address] PCP - General 11/14/15
== END 2025-02-08 23:59 | disposition home or self-care (01) ==
LOC: RAD 12:56
PROVIDERS: PCP Family Medicine; Visit Provider Nurse Practitioner Family
DX: M23.251 Derangement of posterior horn of lateral meniscus due to old tear or injury, right knee (principal); M22.41 Chondromalacia patellae, right knee; M71.21 Synovial cyst of popliteal space [Baker], right knee
CPT/HCPCS: 73721

== ENCOUNTER 2025-02-27 13:35 | Outpatient (POV) | payer MEDICARE, MEDICAID, SELFPAY ==
--- OUTSIDE RECORDS SUMMARY | 2025-01-17 04:15 | XMS_ITS ---
Author Organization [facility] Address [address] [facility] [address] [place] [id number] Care Team Providers Care Vehicle Operator Technician Name Role Phone Beth Triston Primary Care Provider Results Component Value Reference Range Notes Urinalysis - Inhouse Reviewed date:01/17/2025 06:16:40 PM Interpretation: Performing Lab: Notes/Report: Color/Clarity Yellow/Clear Leuk Trace Nitrite Neg Urobili 3.2 Protein Neg pH 5.5 Blood Neg Sp. Gr. 1.020 Ketone Neg Bili Neg Gluc Neg REASON FOR VISIT urine sample Medications Medication SIG (Take, Route, Frequency, Duration) Notes Start Date End Date Status hydrOXYzine HCl 25 MG 1 tablet as needed Orally Two times a day 11/15/2024 Active levoFLOXacin 500 MG 1 tablet Orally Once a day; Duration: 7 days 11/17/2024 Active LORazepam 1 MG 1 tab(s) orally 2 ti mes a day; Duration: 30 day(s) 11/20/2024 Active Meclizine HCl 25 MG 1 tablet as needed Orally every 12 hrs; Duration: 90 days Active Trulance 3 mg TAKE ONE TABLET BY M OUTH EVERY DAY; Duration: 90 Active Memantine HCl 5 mg TAKE ONE TABLET BY M OUTH TWICE DAILY; Duration: 90 Active Briviact 75 MG 1 tab(s) orally Twic e a day; Duration: 90 days 10/18/2024 Active Irbesartan-hydroCHLOROthiazi de 300-12.5 MG TAKE ONE TABLET BY MOUTH EVERY DAY; Duration: 90 Active Lactulose 10 GM/15ML TAKE 15ML BY MOUTH ONCE DAILY NEEDED; Duration: 30 Active oxyCODONE HCl 10 MG 1 tab(s) orally 2 ti mes a day; Duration: 30 days 09/26/2024 Active Diclofenac Sodium 1 % 4 grams Externally four times a day as needed 03/28/2024 Active Azelastine HCl 137 MCG/SPRAY 2 puffs (1 spray in each nostril) Nasally Twice a day 06/29/2024 Active MiraLax 17 GM/SCOOP 1 scoop mixed with 8 ounces of fluid Orally Once a day 06/29/2024 Active Gabapentin 300 MG 2 capsules orally 2 times daily 07/28/2024 Active Docusate Sodium 250 mg TAKE ONE CAPSULE BY MOUTH TWICE DAILY NEEDED; Duration: 30 Active tiZANidine HCl 2 MG 1 tab(s) orally ever y 8 hours as needed Active Vitamin B 12 500 MCG 1 tab(s) orally onc e a day 03/06/2020 Active Albuterol Sulfate HFA 108 (90 Base) MCG/ACT 2 puff(s) inhaled qid and q2h prn; Duration: 30 days 04/14/2022 Active Lumbar Back Brace/Support Pad - as directed 12/11/2022 Active Triamcinolone Acetonide 0.1 % 1 application Externally Twice a day 02/24/2024 Active Commode Bedside - as directed Active Walker - as directed Active Lactase - as directed Active Vitamin D3 50 MCG (2000 UT) 1 tab(s) ora lly twice a day Active Wheelchair - as directed Activ e Celecoxib 100 mg 1 capsule Orally Onc e a day; Duration: 90 days Active Donepezil HCl 5 mg TAKE ONE TABLET BY M OUTH EVERY DAY AT BEDTIME; Duration: 90 Active Esomeprazole Magnesium 40 mg TAKE ONE CA PSULE BY MOUTH EVERY DAY; Duration: 90 Active Tamsulosin HCl 0.4 MG 1 capsule Orally O nce a day; Duration: 30 day(s) Active Phenazopyridine HCl 200 MG 1 tablet afte r meals Orally Three times a day; Duration: 2 day(s) Active DULoxetine HCl 60 mg 1 capsule orally on ce a day; Duration: 30 days Active Levothyroxine Sodium 25 MCG 1 tab(s) ora lly once a day; Duration: 90 days Active Myrbetriq 50 mg 1 tablet Orally Once a day; Duration: 90 days Active Furosemide 20 mg 1 tablet Orally Once a day; Duration: 90 days Active Alendronate Sodium 70 mg 1 tablet by izabel once weekly; Duration: 84 days Active Encounters Encounter Location Date Provider Diagnosis [facility] [address] [facility] [address] [place] [phone] 01/17/2025 Triston Campos Chronic UTI N 39.0 Assessments Encounter Date Diagnosis (ICD Code) Assessment Notes Treatment Notes Treatment Clinical Notes Section Notes 01/17/2025 Chronic UTI (ICD-10 - N39.0) Plan Of Treatment No Information Progress Notes * Maura CARRERODOB:1940 (84 yo F)Acc No.[id number]:01/17/2025 Patient: Maura SHULTZ Provider: Briana Campos M.D. :1940 A ge:84 Y S ex:Female Date:01/17/2025 Address:[facility] [address] [place], [id number] Subjective: * Chief Complaints: * 1 . Urine sample. * Medical History: * Medications: T aking Tamsulosin HCl 0.4 [...] times a day as needed , Taking Azelastine HCl 137 MCG/SPRAY Solution 2 puffs (1 spray in each nostril) Nasally Twice a day , Taking MiraLax 17 GM/SCOOP Powder 1 scoop mixed with 8 ounces of fluid Orally Once a day , Taking Gabapentin 300 MG Capsule 2 capsules orally 2 times daily , Taking Docusate Sodium 250 mg Capsule TAKE ONE CAPSULE BY MOUTH TWICE DAILY NEEDED , Taking oxyCODONE HCl 10 MG Tablet 1 tab(s) orally 2 times a day , Taking Memantine HCl 5 mg Tablet TAKE ONE TABLET BY MOUTH TWICE DAILY , Taking Briviact 75 MG Tablet 1 tab(s) orally Twice a day , Taking Irbesartan-hydroCHLOROthiazide 300-12.5 MG Tablet TAKE ONE TABLET BY MOUTH EVERY DAY , Taking Lactulose 10 GM/15ML Solution TAKE 15ML BY MOUTH ONCE DAILY NEEDED , Taking hydrOXYzine HCl 25 MG Tablet 1 tablet as needed Orally Two times a day , Taking levoFLOXacin 500 MG Tablet 1 tablet Orally Once a day , Taking LORazepam 1 MG Tablet 1 tab(s) orally 2 times a day , Taking Meclizine HCl 25 MG Tablet 1 tablet as needed Orally every 12 hrs , Taking Trulance 3 mg Tablet TAKE ONE TABLET BY MOUTH EVERY DAY , Taking Alendronate Sodium 70 mg Tablet 1 tablet by mouth once weekly , Taking DULoxetine HCl 60 mg Capsule Delayed Release Particles 1 capsule orally once a day , Taking Levothyroxine Sodium 25 MCG Tablet 1 tab(s) orally once a day , Taking Myrbetriq 50 mg Tablet Extended Release 24 Hour 1 tablet Orally Once a day , Taking Furosemide 20 mg Tablet 1 tablet Orally Once a day , Taking Celecoxib 100 mg Capsule 1 capsule Orally Once a day , Taking Donepezil HCl 5 mg Tablet TAKE ONE TABLET BY MOUTH EVERY DAY AT BEDTIME , Taking Esomeprazole Magnesium 40 mg Capsule Delayed Release TAKE ONE CAPSULE BY MOUTH EVERY DAY , Medication List reviewed and reconciled with the patient Objective: * Vitals: Assessment: * Assessment: 1. C hronic UTI - N39.0 (Primary) Plan: * Treatment: Value Reference Range C olor/Clarity Yellow/Clear * L euk Trace * N itrite Neg * U robili 3.2 * P rotein Neg * p H 5.5 * B lood Neg * S p. Gr. 1.020 * K etone Neg * B hilda Neg * G joselyn Neg * Laura Mccollum 01/17/2025 08:43: 47 AM EDT >Triston Campos 01/17/2025 06:16:18 PM EDT > Urine PCR panel ordered. * Procedure Codes: 8 1002 Urinalysis, no micro * Images: Billing Information: * Visit Code: * Procedure Codes: 66211 Urinalysis, no micro. * Electronic signature of Fidelia Campos MD on 02/28/2025 at 12:50 PM EDT Sign off status: Pending * Provider: Briana Campos M.D. Date: 0 01/17/2025 Generated for [facility] paredes/Hernán/Luis on: 0 02/28/2025 12:50 PM EDT
--- OUTSIDE RECORDS SUMMARY | 2025-02-02 11:00 | XMS_ITS ---
Author Organization [facility] Address [address] [facility] [address] [place] [id number] Care Team Providers Care Sand Plant Attendant Name Role Phone Triston Campos Primary Care Provider [phone] Allergies Allergen (clinical drug ingredient) Drug/Non Drug Allergy documented on EMR Reaction Allergy Type Onset Date Status codeine Codeine numbness Drug Allergy Active Results Component Value Reference Range Notes Urinalysis - Inhouse Reviewed date:02/02/2025 09:37:15 PM Interpretation: Performing Lab: Notes/Report: Color/Clarity Yellow/Clear Leuk Trace Nitrite Neg Urobili 3.2 Protein Neg pH 5.5 Blood Neg Sp. Gr. 1.020 Ketone Neg Bili Neg Gluc Neg CBC Fingerstick (in house) Reviewed date:02/02/2025 09:37:04 PM Interpretation: Performing Lab: Notes/Report: wbc 8.8 3.5 - 10 lym 25.2% 15 - 50 mid 6.0% 2 - 15 gran 68.8% 35 - 80 rbc 4.12 3.5 - 5.5 hgb 13.4 11.5 - 16.5 hct 39.7 35 - 55 mcv 96.3 75 - 100 mch 32.6 25 - 35 mchc 33.8 31 - 38 plat 251 100 - 400 P-Culture, Urine Reviewed date:02/05/2025 05:53:45 PM Interpretation:No growth Performing Lab: Notes/Report: Test performed by [facility] , [address], [place] [address] Adrian Gilbert MD, [employer] Board Certified Orthotist CLIA: [id number] Specimen Source Urine - Void Culture, Urine See Below Final Report : No growth REASON FOR VISIT stomach aches, not feeling well Medications Medication SIG (Take, Route, Frequency, Duration) Notes Start Date End Date Status Ondansetron HCl 4 MG 1 tablet Orally 3 times a day As needed 02/02/2025 Active oxyCODONE HCl 10 MG 1 tab(s) orally 2 ti mes a day; Duration: 30 days 01/23/2025 Active Memantine HCl 5 mg 1 tablet orally twic e a day; Duration: 90 days Active Donepezil HCl 5 mg TAKE ONE TABLET BY M OUTH EVERY DAY AT BEDTIME; Duration: 90 Active Esomeprazole Magnesium 40 mg TAKE ONE CA PSULE BY MOUTH EVERY DAY; Duration: 90 Active DULoxetine HCl 60 mg 1 capsule orally on ce a day; Duration: 30 days Active Levothyroxine Sodium 25 MCG 1 tab(s) ora lly once a day; Duration: 90 days Active Furosemide 20 mg 1 tablet Orally Once a day; Duration: 90 days Active Celecoxib 100 mg 1 capsule Orally Onc e a day; Duration: 90 days Active Myrbetriq 50 mg 1 tablet Orally Once a day; Duration: 90 days Active Trulance 3 mg TAKE ONE TABLET BY M OUTH EVERY DAY; Duration: 90 Active Alendronate Sodium 70 mg 1 tablet by once weekly; Duration: 84 days Active LORazepam 1 MG 1 tab(s) orally 2 ti mes a day; Duration: 30 day(s) 11/20/2024 Active Meclizine HCl 25 MG 1 tablet as needed Orally every 12 hrs; Duration: 90 days Active Briviact 75 MG 1 tab(s) orally Twic e a day; Duration: 90 days 10/18/2024 Active Docusate Sodium 250 mg TAKE ONE CAPSULE BY MOUTH TWICE DAILY NEEDED; Duration: 30 Active hydrOXYzine HCl 25 MG 1 tablet as needed Orally Two times a day 11/15/2024 Active Irbesartan-hydroCHLOROthiazi de 300-12.5 MG TAKE ONE TABLET BY MOUTH EVERY DAY; Duration: 90 Active Lactulose 10 GM/15ML TAKE 15ML BY MOUTH ONCE DAILY NEEDED; Duration: 30 Active Gabapentin 300 MG 2 capsules orally 2 times daily 07/28/2024 Active Azelastine HCl 137 MCG/SPRAY 2 puffs (1 spray in each nostril) Nasally Twice a day 06/29/2024 Active MiraLax 17 GM/SCOOP 1 scoop mixed with 8 ounces of fluid Orally Once a day 06/29/2024 Active Triamcinolone Acetonide 0.1 % 1 application Externally Twice a day 02/24/2024 Active Diclofenac Sodium 1 % 4 grams Externally four times a day as needed 03/28/2024 Active Vitamin D3 50 MCG (2000 UT) 1 tab(s) ora lly twice a day Active tiZANidine HCl 2 MG 1 tab(s) orally ever y 8 hours as needed Active Albuterol Sulfate HFA 108 (90 Base) MCG/ACT 2 puff(s) inhaled qid and q2h prn; Duration: 30 days 04/14/2022 Active Lumbar Back Brace/Support Pad - as directed 12/11/2022 Active Vitamin B 12 500 MCG 1 tab(s) orally onc e a day 03/06/2020 Active Walker - as directed Active Lactase - as directed Active Wheelchair - as directed Activ e Commode Bedside - as directed Active Phenazopyridine HCl 200 MG 1 tablet afte r meals Orally Three times a day; Duration: 2 day(s) Active Tamsulosin HCl 0.4 MG 1 capsule Orally O nce a day; Duration: 30 day(s) Active Vital Signs Weight 179 lbs 02/02/2025 Blood pressure systolic 124 mm Hg 02/03/20 25 Blood pressure diastolic 68 mm Hg 025 Height 62 in 02/02/2025 BMI 32.74 kg/m2 02/02/2025 Encounters Encounter Location Date Provider Diagnosis [facility] [address] [facility] [address] [place], [place] [id number] 02/02/2025 Triston [place] Nausea R11.0 and Pyuria R82.81 Assessments Encounter Date Diagnosis (ICD Code) Assessment Notes Treatment Notes Treatment Clinical Notes Section Notes 02/02/2025 Nausea (ICD-10 - R11.0) 02/02/2025 Pyuria (ICD-10 - R82.81) Plan Of Treatment Medication Medication Name Sig Start Date Stop Date Notes Ondansetron HCl 4 MG 1 tablet Orally 3 times a day 025 Next Appt Details Follow Up: via phone to repo rt progress, Reason: Progress Notes * Maura CARRERODOB:1940 (84 yo F)Acc No.[id number]:02/02/2025 Progress Notes Patient: Maura SHULTZ Provider: Briana Campos M.D. :1940 A ge:84 Y S ex:Female Date:02/02/2025 Address:[facility] [address] [place], [id number] Subjective: * Chief Complaints: * 1 . Stomach aches, not feeling well. * HPI: G astroenterology: 84 year old female presents with c/o Abdominal Pain P t complains of stomach pain for 2 days. Pt's daughter states that pt has been nauseated but no vomiting. Pt's daughter states the pt does not feel good at all . * ROS: C ARDIOLOGY: no D izziness. n o C hest pain. D ERMATOLOGY: no R tasha. n o H rica. U ROLOGY: no D ifficulty urinating. n [...] . * Social History: C URRENT TOBACCO USE: No . C affeine: no, some coffee. Past smoking [...] BY MOUTH TWICE DAILY NEEDED , Taking Briviact 75 MG Tablet 1 tab(s) orally Twice a day , Taking Irbesartan-hydroCHLOROthiazide 300-12.5 MG Tablet TAKE ONE TABLET BY MOUTH EVERY DAY , Taking Lactulose 10 GM/15ML Solution TAKE 15ML BY MOUTH ONCE DAILY NEEDED , Taking hydrOXYzine HCl 25 MG Tablet 1 tablet as needed Orally Two times a day , Taking LORazepam 1 MG [...] CAPSULE BY MOUTH EVERY DAY , Taking oxyCODONE HCl 10 MG Tablet 1 tab(s) orally 2 times a day , Taking Memantine HCl 5 mg Tablet 1 tablet orally twice a day , Discontinued levoFLOXacin 500 MG Tablet 1 tablet Orally Once a day , Medication List reviewed and reconciled with the patient * Allergies: C odeine: numbness. Objective: * Vitals: W t: 179, Temp: 98.3, BP: 124/68, Nurse: karen, Ht: 62, BMI:32.74. * Examination: G eneral Examination: General Appearance: N AD, sitting in a wheel chair, conversant. H eart: R SR. A bdomen: b owel sounds present, soft and nontender, no guarding or rigidity. Assessment: * Assessment: 1. N ausea - R11.0 (Primary) 2 . P tiny - R82.81 Plan: * Treatment: Value Reference Range w bc 8.8 3.5 - 10 * l ym 25.2% 15 - 50 * m id 6.0% 2 - 15 * g ran 68.8% 35 - 80 * r bc 4.12 3.5 - 5.5 * h gb 13.4 11.5 - 16.5 * h ct 39.7 35 - 55 * m cv 96.3 75 - 100 * m ch 32.6 25 - 35 * m chc 33.8 31 - 38 * p lat 251 100 - 400 * Laura Mccollum 02/02/2025 03:14:4 6 PM EDT > Provider reviewed results while patient in office.Triston Campos 02/02/2025 09:36:56 PM EDT > 2.?Pyuria?LAB: P-Culture, Urine (Collection Date & Time - 02/02/2025 02:27 PM)?No growth* Value Reference Range C ulture, Urine See Below - * S pecimen Source Urine - Void - * Laura Mccollum 02/05/2025 05:53:1 9 PM EDT > Pt's daughter informed ?LAB: Urinalysis - Inhouse (Collection Date & Time - 02/02/2025)* Value Reference Range C olor/Clarity Yellow/Clear * L euk Trace * N itrite Neg * U robili 3.2 * P rotein Neg * p H 5.5 * B lood Neg * S p. Gr. 1.020 * K etone Neg * B hilda Neg * G joselyn Neg * Laura Mccollum 02/02/2025 03:13:4 9 PM EDT > Provider reviewed results while patient in office.Triston Campos 02/02/2025 09:37:10 PM EDT > * Procedure Codes: G 2211 Complex e/[place], [address] CBC WITH AUTO DIFF, 77549 CAPILLARY BLOOD DRAW, 10463 Urinalysis, no micro, 1036F TOBACCO NON-USER, G8752 MOST RECENT SYSTOLIC BP < 140MM HG, G8754 MOST RECENT DIASTOLIC BP < 90MM HG, G8783 BP SCR PRFRM RCMDD DEFIND SCR INTVL * Follow Up: v ia phone to report progress * Images: Billing Information: * Visit Code: 58412 Office Visit, Est Pt., Level 3. * Procedure Codes: G2211 Complex e/[place]. [address] CBC WITH AUTO DIFF. 44717 CAPILLARY BLOOD DRAW. 00422 Urinalysis, no micro. 1036F TOBACCO NON-USER. G8752 MOST RECENT SYSTOLIC BP < 140MM HG. G8754 MOST RECENT DIASTOLIC BP < 90MM HG. G8783 BP SCR PRFRM RCMDD DEFIND SCR INTVL. * Electronic signature of Fidelia Campos MD on 02/28/2025 at 12:50 PM EDT Sign off status: Pending * Provider: Briana Campos M.D. Date: 02/02/2025 Generated for [facility]/eTransmitting on: 0 02/28/2025 12:50 PM EDT History and Physical Notes * HPI (History of Present Illness) Category Sub-Category Detail Notes Category Not es Gastroenterology Abdominal Pain Pt complains of stomach pain for 2 days. Pt's daughter states that pt has been nauseated but no vomiting. Pt's daughter states the pt does not feel good at all Examination Category Sub-Category Detail Notes Category Not es General Examination Heart: RSR Abdomen: bowel sounds present , soft and nontender, no guarding or rigidity General Appearance: NAD, sitting in a wh eel chair, conversant
--- OUTSIDE RECORDS SUMMARY | 2025-02-16 07:30 | XMS_ITS ---
Author [facility] Address [address] [facility] [address] [place] [phone] Care Team Providers Care Access Services Representative Name Role Phone Triston Campos Primary Care [address] [place], [place] [id number] 02/16/2025 Triston Campos Dyspepsia R10.13 Assessments Encounter [...] Notes * Maura CARRERODOB:1940 (84 yo F)Acc No.[id number]:02/16/2025 Progress Notes Patient: Maura SHULTZ Provider: Briana Campos M.D. :1940 A ge:84 Y S ex:Female Date:02/16/2025 Address:[facility] [address] [place], [id number] Subjective: * Chief Complaints: * 1 . [...] * Images: Billing Information: * Visit Code: 84162 Office Visit, Est Pt., Level 3. * Procedure Codes: G2211 Complex e/m visit add on. * Electronic signature of Fidelia Campos MD on 02/28/2025 at 12:51 PM EDT Sign off status: Pending * Provider: Briana Campos M.D. Date: 0 02/16/2025 Generated for [facility]/[place]/Kimberransmitting on: 0 02/28/2025 12:51 PM EDT History and Physical Notes * [...]
[2025-02-27 14:02] VITALS: BP 162/76; PULSE 75; RESP 18; O2SAT 97; BMI 28.3
--- NOTE | 2025-02-27 14:17 | EXP.PAIN.PRO ---
Procedure Date: 02/27/25 Time: 14:00 Anesthesiologist:: Virgil Ventura CRNA Complications:: None Pre-procedure Diagnosis:: DJD right knee. Chronic right knee pain. Left sacroiliitis. Lumbar back pain. Post-procedure Diagnosis:: Same. Indications for Procedure:: Patient is a pleasant 84-year-old female who comes our clinic today for right intra-articular knee injection. Patient reports no pain in the right knee. However, her main complaint is low lumbar back pain off the midline to the left. Patient has positive Ryder's, Gaenslen's, left sacroiliac joint compression test. She has extreme point tenderness over the left sacroiliac joint. Patient reports responding well to left sacroiliac joint injections in the past. She is having difficulty transitioning from sitting to standing. Difficulty with ambulation due to the left low lumbar back pain. She rates her pain 8/10. Procedure Details:: No procedure today. We will set up left sacroiliac joint injection of cortisone local anesthetic FE. Plan and Disposition:: Patient will be scheduled for left sacroiliac joint injection pending approval.
--- OUTSIDE RECORDS SUMMARY | 2025-02-28 12:50 | XMS_ITS | Patient Health Record ---
Author Organization [facility] Address [address] [place] [id number] Care Team Providers Care Implementation Project Coordinator Name Role Phone Triston Campos Primary Care Provider Leena Bhagat [phone] Allergies Allergen (clinical drug ingredient) Drug/Non Drug Allergy documented on EMR Reaction Allergy Type Onset Date Status codeine Codeine numbness Drug Allergy Active Results Component Value Reference Range Notes P-Vitamin D 25-Hydroxy Reviewed date:08/12/2024 01:27:24 PM Interpretation: Normal Performing Lab: Notes/Report: Test performed by [facility] [address] [place], [place] [address]LAFASO Showell Laura [address], [place] [address] Adrian Gilbert MD, [employer] Machine [employer] CLIA: [id number] Vitamin D 25-Hydroxy 67.3 30.0-100.0 ng/mL Interpretation of Vitamin D 25 OH: < 20 ng/mL - Deficiency 20 - 29 ng/mL - Insufficiency 30 - 100 ng/mL - Sufficiency > 100 ng/mL - Super-therapeutic- toxicity may occur above this level. Clinical correlation required. P-TSH reflex to FT4 Reviewed date:08/12/2024 01:27:24 PM Interpretation: Normal Performing Lab: Notes/Report: Test performed by [facility] [address] [place], [place] [address]LAFASO Showell Laura [address] C, [place] [address] Adrian Gilbert MD, [employer]aching Machine Repairer CLIA: [id number] TSH reflex to FT4 4.20 0.43-5.25 mU/L P-Phosphorus Reviewed date:08/12/2024 01:27:24 PM Interpretation: Normal Performing Lab: Notes/Report: Test performed by [facility] [address] , [address], [place] [address] Adrian Gilbert MD, [employer]aching Machine Repairer CLIA: [id number] Phosphorus 3.3 2.5-4.5 mg/dL P-Magnesium Reviewed date:08/12/2024 01:27:24 PM Interpretation: Normal Performing Lab: Notes/Report: Test performed by [facility] , [address], [place] [address] Adrian Gilbert MD, [employer]aching Machine Repairer CLIA: [id number] Magnesium 2.3 1.6-2.4 mg/dL P-Culture, Urine Reviewed date:08/14/2024 09:01:10 AM Interpretation:No growth Performing Lab: Notes/Report: Test performed by [facility] , [address], [place] [address] Adrian Gilbert MD, [employer]aching Machine Rep[employer]r CLIA: [id number] Specimen Source Urine - CC Culture, Urine See Below Final Report : No growth P-Comprehensive Metabolic Pa krystal (CMP) Reviewed date:08/12/2024 01:27:24 PM Interpretation:bun 35, cr 1.35, gfr 38 Performing Lab: Notes/Report: Test performed by [facility] [employer] [address] , [address], [place] [address] Adrian Gilbert MD, [employer]aching Machine Repairer CLIA: [id number] Sodium 142 135-145 mmol/L Potassium 5.1 3.5-5.3 [...] 0.3 <0.2-1.2 mg/dL A/G Ratio 1.4 1.1-2.5 P-Vitamin B12 Reviewed date:08/12/2024 01:27:24 PM Interpretation:1402 Performing Lab: Notes/Report: Test performed by [facility] [employer] [address] [place] [address] , [address], [place] [address] Adrian Gilbert MD, [employer]aching Machine Repairer CLIA: [id number] Vitamin B12 8614 715-7912 pg/mL CBC Venipuncture (in house) Reviewed date:08/12/2024 01:27:24 [...] - 38 platlet 246 100 - 400 Urinalysis - Inhouse Reviewed date:08/11/2024 04:35:51 PM Interpretation: Performing Lab: Notes/Report: Color/Clarity yellow Leuk trace Nitrite neg Urobili 3.2 Protein neg pH 5.5 Blood neg Sp. Gr. 1.020 Ketone neg Bili neg Gluc neg Urinalysis - Inhouse Reviewed date:01/17/2025 06:16:40 PM [...] recommended Performing Lab: Notes/Report: Test performed by [facility] [address] [place] [address] Laura Atkins C, [place] [address] Adrian Gilbert MD, [employer]aching Machine Repairer CLIA: [id number] Specimen Source Urine - Void Culture, Urine See Below Final Report : 10,000-15,000 CFU/ml Mixed Gram Positive and Negative Organisms Three or more organisms present likely representing contamination during collection by patient's urogenital, skin, and/or fecal abdi. Organism identification and sensitivity assessment are not recommended. Specimen recollection is recommended. Urinalysis - Inhouse Reviewed date:03/29/2024 09:34:52 AM [...] 40 Performing Lab: Notes/Report: Test performed by [facility] [address] [place] [address] Laura Atkins C, [place] [id number] Adrian Gilbert MD, [employer]aching Machine Repairer CLIA: [id number] Sodium 141 135-145 mmol/L Potassium 4.4 3.5-5.3 [...] Lab: Notes/Report: Abnormal Urinalysis - Inhouse Reviewed date:09/08/2024 11:03:52 AM Interpretation:tracke leuk Performing Lab: Notes/Report: tracke leuk Color/Clarity dark yellow/cloudy Leuk Trace Nitrite Neg Urobili 3.2 Protein Neg pH 5.5 Blood Neg Sp. Gr. >=1.030 Ketone Trace Bili Neg Gluc Neg TEN-UTI panel Reviewed date:09/08/2024 11:10:00 AM Interpretation:Negative Performing Lab: Notes/Report: Negative TEN-UTI panel Reviewed date:01/19/2025 08:37:21 AM Interpretation:Negative Performing Lab: Notes/Report: Negative TEN-UTI panel Reviewed date:11/14/2024 10:18:38 AM Interpretation:E. Coli-sensitive Performing Lab: Notes/Report: E. Coli-sensitive TEN-UTI panel Reviewed date:11/14/2024 10:18:38 AM Interpretation:E. Coli-sensitive Performing Lab: Notes/Report: E. Coli-sensitive P-TSH reflex to FT4 Reviewed date:11/14/2024 10:18:24 AM Interpretation:Normal Performing Lab: Notes/Report: Test performed by [facility], [address] , [address], [place] [address] Adrian Gilbert MD, Broaching Machine Repairer CLIA: [id number] TSH reflex to FT4 2.68 0.43-5.25 mU/L P-Comprehensive Metabolic Pa krystal (CMP) Reviewed date:11/14/2024 10:18:02 AM Interpretation:gluc 153, bun 29, Cr 1.5, gfr 34 Performing Lab: Notes/Report: Test performed by [facility], [address] , [address], [place] [address] Adrian Gilbert MD, Broaching Machine Repairer CLIA: [id number] Sodium 143 135-145 mmol/L Potassium 4.1 3.5-5.3 [...] 0.3 <0.2-1.2 mg/dL A/G Ratio 1.3 1.1-2.5 CBC Venipuncture (in house) Reviewed date:11/11/2024 10:26:00 [...] - 38 platlet 223 100 - 400 Urinalysis - Inhouse Reviewed date:03/13/2024 03:07:45 PM [...] 36 Performing Lab: Notes/Report: Test performed by [facility] [address] [place] [address] , [address], [place] [address] Adrian Gilbert MD, Broaching Machine Repairer CLIA: [id number] Sodium 143 135-145 mmol/L Potassium 4.3 3.5-5.3 mmol/L Chloride 103 97-108 mmol/L CO2 28 22-32 mmol/L Glucose 111 65-99 mg/dL BUN 36 8-23 mg/dL Creatinine 1.42 0.50-1.00 mg/dL Calcium 9.9 8.6-10.4 mg/dL eGFR by Creatinine 36 >59 mL/min/1.73m2 TEN-UTI panel Reviewed date:05/11/2024 02:55:20 PM Interpretation:Abnormal Performing Lab: Notes/Report: Abnormal LC-Brivaracetam level serum Reviewed date:07/06/2024 08:50:12 AM Interpretation:3.86 Performing Lab:[facility], [address] [place] [id number], Phone - [phone], Director - [facility] Notes/Report: Brivaracetam 3.86 0.20 - 2.00 ug/mL This test was developed and its performance characteristics determined by [facility]. It has not been cleared or approved by the Food and Drug Administration. P-Culture, Urine Reviewed date:02/05/2025 05:53:45 PM Interpretation:No growth Performing Lab: Notes/Report: Test performed by [facility] [address] [place] [address] [address], [place] [address] Adrian Gilbert MD, Broaching Machine Repairer CLIA: [id number] Specimen Source Urine - Void Culture, Urine [...] Neg Gluc Neg Urinalysis - Inhouse Reviewed date:11/17/2024 12:41:29 PM [...] - 38 plat 199 100 - 400 Urinalysis - Inhouse Reviewed date:10/26/2024 08:29:47 AM Interpretation: Performing Lab: Notes/Report: Color/Clarity yellow/clear Leuk 1+ Nitrite Pos Urobili 3.2 Protein 1+ pH 5.0 Blood Neg Sp. Gr. 1.020 Ketone Neg Bili Neg P-Culture, Urine Reviewed date:10/30/2024 09:21:08 AM Interpretation:suggest contamination, recollection recommended Performing Lab: Notes/Report: Test performed by [facility] [employer] [address] [place] [address] , [address], [place] [address] Adrian Gilbert MD, Broaching Machine Repairer CLIA: [id number] Specimen Source Urine - Void Culture, Urine [...] Growth Performing Lab: Notes/Report: Test performed by [facility] [address] [place] [address] , [address], [place] [address] Adrian Gilbert MD, Broaching Machine Repairer CLIA: [id number] Specimen Source Urine - Void Culture, Urine See Below Final Report : No Significant Growth M-Miscellaneous Test Reviewed date:04/05/2024 11:34:56 AM Interpretation: Performing Lab: Notes/Report: [facility] #[id number] MISCT SCANNED IMAGE IMAGE SENT TO MEDICAL RECORDS TO BE SCANNED Medications Medication SIG (Take, Route, Frequency, Duration) Notes Start Date End Date Status Celecoxib 100 mg 1 capsule Orally Onc [...] Once a day; Duration: 90 days Active LORazepam 1 MG 1 tab(s) orally 2 ti mes a day; Duration: 30 day(s) 02/19/2025 Active Furosemide 20 mg 1 tablet Orally Once a day; Duration: 90 days Active Tamsulosin HCl 0.4 MG 1 capsule Orally O nce a day; Duration: 30 day(s) Active Memantine HCl 5 mg 1 tablet orally twic e a day; Duration: 90 days Active Phenazopyridine HCl 200 MG 1 tablet afte r meals Orally Three times a day; Duration: 2 day(s) Active Ondansetron HCl 4 MG 1 tablet Orally 3 t imes a day Active Wheelchair - as directed Activ e Azelastine HCl 137 MCG/SPRAY 2 puffs (1 spray in each nostril) Nasally Twice a day 06/29/2024 Active Voquezna 20 MG 1 tablet Orally Once a day; Duration: 30 days 02/16/2025 Active Irbesartan-hydroCHLOROthiazi de 300-12.5 MG TAKE ONE TABLET BY MOUTH EVERY DAY; Duration: 90 Active Lactulose 10 GM/15ML TAKE 15ML BY MOUTH ONCE DAILY NEEDED; Duration: 30 Active hydrOXYzine HCl 25 MG 1 tablet as needed Orally Two times a day 11/15/2024 Active MiraLax 17 GM/SCOOP 1 scoop mixed with 8 ounces of fluid Orally Once a day 06/29/2024 Active Gabapentin 300 MG 2 capsules orally 2 times daily 07/28/2024 Active Docusate Sodium 250 mg TAKE ONE CAPSULE BY MOUTH TWICE DAILY NEEDED; Duration: 30 Active Briviact 75 MG 1 tab(s) orally Twic e a day; Duration: 90 days 10/18/2024 Active Meclizine HCl 25 MG 1 tablet as needed Orally every 12 hrs; Duration: 90 days Active Commode Bedside - as directed Active Walker - as directed Active Lactase - as directed Active Lumbar Back Brace/Support Pad - as directed 12/11/2022 Active Triamcinolone Acetonide 0.1 % 1 application Externally Twice a day 02/24/2024 Active Diclofenac Sodium 1 % 4 grams Externally four times a day as needed 03/28/2024 Active Trulance 3 mg TAKE ONE TABLET BY M OUTH EVERY DAY; Duration: 90 Active Alendronate Sodium 70 mg 1 tablet by izabel once weekly; Duration: 84 days Active Vitamin D3 50 MCG (1999 UT) 1 tab(s) ora lly twice a day Active tiZANidine HCl 2 MG 1 tab(s) orally ever y 8 hours as needed Active Vitamin B 12 500 MCG 1 tab(s) orally onc e a day 03/06/2020 Active Albuterol Sulfate HFA 108 (90 Base) MCG/ACT 2 puff(s) inhaled qid and q2h prn; Duration: 30 days 04/14/2022 Active Immunizations Vaccine Route Administration Date Status [...] 04/12/2023 Administered xFlu shot- 6months-36 months of kcx-SLEL-JOOD-triv alent Unknown 03/22/2012 Administered xFluzone (6mos and older)-trivalent Unknown 06/11/2007 Administered xFluzone (6mos and older)-trivalent Unknown 05/21/2008 Administered xFluzone High Dose-private (65yr&older) IM Intramuscular 04/10/2014 Administered Problems Problem Type SNOMED Code ICD Code Onset Dates Problem Status W/U Status Risk Notes Problem Essential hypertension (21919568) Essential (primary) hypertension (I10) Active confirmed Problem Essential hypertension (35563904) Essential hypertension (I10) Active confirmed Problem Hypertriglyceridemia (337135059) Hypertriglyceridemia (E78.1) Active confirmed Problem Anxiety (76242713) Anxiety (F41.9) Active confi rmed Problem Dysuria (37095017) Dysuria (R30.0) Active confi rmed Problem Mixed anxiety and depressive disorder (073927201) Depression with anxiety (F41.8) Active confirmed Problem Memory loss (89716566) Memory loss (R41.3) Active confirmed Problem Seizure disorder (269509223) Seizure disorder (G40.909) Active confirmed Problem Sciatica (73304470) Lumbago with sciatica, right side (M54.41) Active confirmed Problem Fatigue (29137355) Other fatigue (R53.83) Active confirmed Problem Sciatica (80486644) Lumbago with sciatica, left side (M54.42) Active confirmed Problem Urge incontinence of urine (17936102) Urge incontinence (N39.41) Active confirmed Problem Frequency of micturition (378797110) Frequency of micturition (R35.0) Active confirmed Problem Malaise (086140871) Other malais e (R53.81) Active confirmed Problem Chronic pain (26403758) Other chronic pain (G89.29) Active confirmed Problem Lumbosacral spondylosis without myelopathy (02016317) Lumbosacral radiculopathy due to degenerative joint disease of spine (M47.27) Active confirmed Problem Acquired hypothyroidism (297051843) Acquired hypothyroidism (E03.9) Active confirmed Problem Low back pain (771388902) Bilateral low back pain without sciatica (M54.5) Active confirmed Problem Lumbar spinal stenosis (89576487) Spinal stenosis, lumbar (724.02) Active confirmed Problem Kidney stone (38694193) Kidney stone (N20.0) Active confirmed Problem Gastroesophageal reflux disease (007430190) Gastroesophageal reflux disease, esophagitis presence not specified (K21.9) Active confirmed Problem Osteoporosis (90659316) Osteoporosis (M81.0) Active confirmed Problem Ataxia (28165111) Ataxia (R27.0) Active confirm ed Problem Altered mental statu s (385840801) Altered mental status, unspecified altered mental status type (R41.82) Active confirmed Problem Recurrent falls (338780004) Frequent falls (R29.6) Active confirmed Problem Body mass index 30.0 0 to 34.99 (436991182616244) BMI 34.0-34.9,adult (Z68.34) Active confirmed Problem Dementia (97019147) Dementia wit hout behavioral disturbance (F03.90) Active confirmed Problem Chronic idiopathic constipation (72080378) Chronic idiopathic constipation (K59.04) Active confirmed Problem Lumbosacral spondylosis without myelopathy (61489758) Osteoarthritis of lumbar spine, unspecified spinal osteoarthritis complication status (M47.816) Active confirmed Problem Hearing loss (18593796) Hearing loss of left ear, unspecified hearing loss type (H91.92) Active confirmed Problem Seasonal allergic rhinitis (789612385) Seasonal allergic rhinitis, unspecified trigger (J30.2) Active confirmed Problem Allergic rhinitis (60175119) Allergic rhinitis, unspecified seasonality, unspecified trigger (J30.9) Active confirmed Problem Chronic kidney disease stage 3B (disorder) (960849537) Stage 3b chronic kidney disease (N18.32) Active confirmed Problem Low back pain (857187892) Low back pain, unspecified (M54.50) Active confirmed Problem Chronic kidney disease stage 3A (disorder) (272851299) Stage 3a chronic kidney disease (CKD) (N18.31) Active confirmed Problem Localized, primary osteoarthritis of the shoulder region (893351823) 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511 [facility] [address] [place], [place] [id number] 05/09/2024 Triston Flint Pyuria R82.[address] age 3b chronic kidney disease N18.32 [facility] [address] [place], [place] [id number] 06/29/2024 Triston Flint Seizure disorder G40 .909 ; Seasonal allergic rhinitis, unspecified trigger J30.2 and Chronic idiopathic constipation K59.04 [facility] [address] [place], [place] [id number] 08/11/2024 Triston Flint Fatigue, unspecified type R53.83 ; Anorexia R63.0 ; Stage 3b chronic kidney disease N18.32 ; Open wound of right forearm, initial encounter S51.801A ; Pyuria R82.81 ; Acute abdominal pain R10.9 ; Urinary tract infection without hematuria, site unspecified N39.0 and Urinary frequency R35.0 [facility] [address] [place] [id number] 09/06/2024 Triston Flint Frequent UTI N39.0 [facility] [address] [place], [place] [id number] 10/25/2024 Triston Flint Acute UTI N39.0 ; Se izure disorder G40.909 ; Acquired hypothyroidism E03.9 ; Anxiety F41.9 ; Essential (primary) hypertension I10 ; Low back pain, unspecified M54.50 ; Dementia without behavioral disturbance F03.90 and BMI 34.0-34.9,adult Z68.34 [facility] [address] [place], [place] [id number] 10/31/2024 Triston Flint Urinary tract infect ion without hematuria, site unspecified N39.0 [facility] [address] [facility] [address] [place], [place] [id number] 11/10/2024 Triston Flint Frequent UTI N39.0 ; Fatigue, unspecified type R53.83 and Stage 3b chronic kidney disease N18.32 [facility] [address] [place], [place] [id number] 11/17/2024 Triston Flint Acute UTI N39.0 and Fever, unspecified R50.9 [facility] [address] [place], [place] [id number] 01/09/2025 Triston Flint Chronic UTI N39.0 [facility] [address] [place] [id number] 01/17/2025 Triston Flint Chronic UTI N39.0 [facility] [address] [place] [id number] 02/02/2025 Triston Flint Nausea R11.0 and Pyu yash R82.81 [facility] [address] [place] [id number] 02/16/2025 Triston Flint Dyspepsia R10.13 [facility] [address] [place] [id number] 03/07/2024 Triston Flint [facility] [address] [place] [id number] 03/16/2024 Triston Flint [facility] [address] [place] [id number] 03/30/2024 Leena Crowdy [facility] [address] [place] [id number] 04/03/2024 Triston Flint [facility] [address] [place] [id number] 05/08/2024 Triston Flint Depression with anxi ety F41.8 [facility] [address] [place] [id number] 05/10/2024 Triston Flint [facility] [address] [place] [id number] 06/15/2024 Triston Flint [facility] [address] [place] [id number] 07/06/2024 Triston Flint [facility] [address] [place] [id number] 07/18/2024 Triston Flint Low back pain, unspecified M54.50 [facility] [address] [place] [id number] 07/27/2024 Triston Flint [facility] [address] [place] [id number] 08/12/2024 Triston Flint [facility] [address] [place] [id number] 08/17/2024 Triston Flint Depression with anxi ety F41.8 and Low back pain, unspecified M54.50 [facility] [address] [place] [id number] 09/26/2024 Triston Flint Low back pain, unspecified M54.50 [facility] [address] [place] [id number] 10/18/2024 Triston Flint Seizure disorder G40 .909 [facility] [address] [place] [id number] 10/30/2024 Triston Flint [facility] [address] [place] [id number] 11/14/2024 Triston Flint [facility] [address] [place] [id number] 11/15/2024 Triston Flint [facility] [address] [place] [id number] 11/20/2024 Triston Flint Depression with anxi ety F41.8 [facility] [address] [place] [id number] 11/22/2024 Trsiton Flint [facility] [address] [place] [id number] 01/23/2025 Triston Flint Low back pain, unspecified M54.50 [facility] [address] [place] [id number] 02/19/2025 Triston Flint Depression with anxi ety F41.8 [facility] [address] [place] [id number] 02/26/2025 Triston Campos Dyspepsia R10.13 [facility] [address] [place] [id number] 02/27/2025 Triston Campos Assessments Encounter Date Diagnosis (ICD Code) Assessment Notes Treatment Notes Treatment Clinical Notes Section Notes 01/23/2025 Low back pain, unspecified (ICD-10 - M54.50) 01/17/2025 Chronic UTI (ICD-10 - N39.0) 01/09/2025 Chronic UTI (ICD-10 - N39.0) 09/26/2024 Low back pain, unspecified (ICD-10 - M54.50) 03/28/2024 Urinary frequency (ICD-10 - R35.0) 05/09/2024 Pyuria (ICD-10 - R82.81) 05/09/2024 Stage 3b chronic kidney disease (ICD-10 - N18.32) 05/08/2024 Depression with anxiety (ICD-10 - F41.8) 03/28/2024 Stage 3a chronic kidney disease (CKD) (ICD-10 - N18.31) 10/25/2024 Seizure disorder (ICD-10 - G40.909) 10/25/2024 Acute UTI (ICD-10 - N39.0) 08/11/2024 Anorexia (ICD-10 - R63.0) 08/11/2024 Fatigue, unspecified type (ICD-10 - R53.83) 09/06/2024 Frequent UTI (ICD-10 - N39.0) 10/18/2024 Seizure disorder (ICD-10 - G40.909) 10/31/2024 Urinary tract infection without hematuria, site unspecified (ICD-10 - N39.0) 11/10/2024 Frequent UTI (ICD-10 - N39.0) 11/10/2024 Fatigue, unspecified type (ICD-10 - R53.83) 03/10/2024 Acute UTI (ICD-10 - N39.0) 06/29/2024 Seizure disorder (ICD-10 - G40.909) 06/29/2024 Seasonal allergic rhinitis, unspecified trigger (ICD-10 - J30.2) 07/18/2024 Low back pain, unspecified (ICD-10 - M54.50) 08/17/2024 Depression with anxiety (ICD-10 - F41.8) 11/17/2024 Fever, unspecified (ICD-10 - R50.9) 11/17/2024 Acute UTI (ICD-10 - N39.0) Urine PCR panel reviewed in office today with patient's daughter. Patient seems to have a partially treated infection 11/20/2024 Depression with anxiety (ICD-10 - F41.8) 02/02/2025 Nausea (ICD-10 - R11.0) 02/02/2025 Pyuria (ICD-10 - R82.81) 02/16/2025 Dyspepsia (ICD-10 - R10.13) 02/19/2025 Depression with anxiety (ICD-10 - F41.8) 02/26/2025 Dyspepsia (ICD-10 - R10.13) 08/17/2024 Low back pain, unspecified (ICD-10 - M54.50) 06/29/2024 Chronic idiopathic constipation (ICD-10 - K59.04) 11/10/2024 Stage 3b chronic kidney disease (ICD-10 - N18.32) 10/25/2024 Acquired hypothyroidism (ICD-10 - E03.9) 08/11/2024 Stage 3b chronic kidney disease (ICD-10 - N18.32) 03/28/2024 Seizure disorder (ICD-10 - G40.909) 08/11/2024 Open wound of right forearm, initial encounter (ICD-10 - S51.801A) 03/28/2024 Pain in right shoulder (ICD-10 - M25.511) 10/25/2024 Anxiety (ICD-10 - F41.9) 10/25/2024 Essential (primary) hypertension (ICD-10 - I10) 08/11/2024 Pyuria (ICD-10 - R82.81) 08/11/2024 Acute abdominal pain (ICD-10 - R10.9) 10/25/2024 Low back pain, unspecified (ICD-10 - M54.50) 08/11/2024 Urinary tract infection without hematuria, site unspecified (ICD-10 - N39.0) 10/25/2024 Dementia without behavioral disturbance (ICD-10 - F03.90) 10/25/2024 BMI 34.0-34.9,adult (ICD-10 - Z68.34) 08/11/2024 Urinary frequency (ICD-10 - R35.0) Plan Of Treatment No Information Insurance Providers Payer Name Payer Address Payer Phone Subscriber Number Group Number Insured Name Patient Relationship to Insured Coverage Start Date Coverage End Date MEDICARE PART B [address] [address] [place] [id number] Maura Carrero Self - patient is the insured [employer] [address] [place] [id number] Maura Carrero Self - patient is the [...]
--- OUTSIDE RECORDS SUMMARY | 2025-02-28 12:50 | XMS_ITS | Clinical Summary ---
[facility] Address [address] [place] [address] Care Team Providers Care Shot Dropper Name Role Phone Provider, No Known Primary Care Provider [phone] Medications methocarbamol (ROBAXIN) 750 MG tablet TAKE [...] MRSA Comment:nares screen 09/03/2015 09/03/2015 Care Teams Shot Dropper Relationship Specialty Start Date End Date Provider, [place] [address] PCP - General 11/14/15
--- OUTSIDE RECORDS SUMMARY | 2025-02-28 12:50 | XMS_ITS ---
Author Organization Unknown Results OrderDate OrderTestName ResultName ResultDate Value Units Range AbnormalFlag ResultStatus ObservationNotes TestCode ResultCode DateRecorded AccessionNumber DiagnosticSectionCode DiagnosticSectionName Sequence Interpretation Cust om 03/10/2024 00:00:00 Urinalysis - Inhouse Gluc 4363-05-77A91:00:00 Trace Reviewed Laura Velazco 03/10/2024 4:07:37 PM > , Provider reviewed results while patient in office. Urinalysis - Inhouse 03/10/2024 00:00:00003/10/2024 00:00:00Urinalysis - InhouseBili 1162-61-45P64:00:00NegRevieweSaadPromise [facility] [place] 03/10/2024 4:07:37 PM > , Provider reviewed results while patient in office. Coding Urinalysis - Inhouse 03/10/2024 00:00: 00:00:00Urinalysis - InhouseKetone 1345-72-46U56:00:00NegRevieweGrayson Nashira 03/10/2024 4:07:37 PM > , Provider reviewed results while patient in office. Coding Urinalysis - Inhouse 03/10/2024 00:00: 00:00:00Urinalysis - InhouseSp. Gr. 2992-43-65Q08:00:001.015ReviewedKammonPromise [facility] [place] 03/10/2024 4:07:37 PM > , Provider reviewed results while patient in office. Coding Urinalysis - Inhouse 03/10/2024 00:00:00003/10/2024 00:00:00Urinalysis - InhouseBlood 5711-00-70C79:00:00NegReviewedKammonPromise [facility] [place] 03/10/2024 4:07:37 PM > , Provider reviewed results while patient in office. Coding Urinalysis - Inhouse 03/10/2024 00:00: 00:00:00Urinalysis - ArrqrtybQ6365-19-96I01:00:00 5.0ReviewedKammonPromise [facility] [place] 03/10/2024 4:07:37 PM > , Provider reviewed results while patient in office. Coding Urinalysis - Inhouse 03/10/2024 00:00: 00:00:00Urinalysis - InhouseProtein 8725-25-73F67:00:00TraceReviewedKing,[facility] 03/10/2024 4:07:37 PM > , Provider reviewed results while patient in office. Coding Urinalysis - Inhouse 03/10/2024 00:00: 00:00:00Urinalysis - InhouseUrobili 3963-24-57Z09:00:0016RevieweSaadPromise [facility] [place] 03/10/2024 4:07:37 PM > , Provider reviewed results while patient in office. Coding Urinalysis - Inhouse 03/10/2024 00:00: 00:00:00Urinalysis - InhouseNitrite 2235-16-22L02:00:00PosReviewedKammonPromise [facility] Of [facility] [place] 03/10/2024 4:07:37 PM > , Provider reviewed results while patient in office. Coding Urinalysis - Inhouse 03/10/2024 00:00: 00:00:00Urinalysis - InhouseLeuk 6457-14-15Z36:00:00NegReviewedKammonPromise [facility] [place] 03/10/2024 4:07:37 PM > , Provider reviewed results while patient in office. Coding Urinalysis - Inhouse 03/10/2024 00:00: 00:00:00Urinalysis - InhouseColor/Clarity 4568-25-35T39:00:00orange/clearReviewedKing,[facility] 03/10/2024 4:07:37 PM > , Provider reviewed results while patient in office. Coding Urinalysis - Inhouse 03/10/2024 00:00: 00:00:00M-Miscellaneous TestMiscellaneous Test 9326-95-62S25:00:00SCANNED IMAGE-TitusIsabelle Yu 04/05/2024 11:34:50 AM > , see duplicate order Coding M-Miscellaneous Test 03/28/2024 00:00: 00:00:00TEN-UTI tpeez7722-83-92Y37:00:00Abnormal Isabelle Torres 03/30/2024 9:30:24 AM > , See phone encounter Coding TEN-UTI panel 03/28/2024 00:00: 00:00:00Miscell Ref Lab Vntz5611-18-67M59:00:00 Brivaracetam 4.43RevieweLaura Nash 03/28/2024 12:15:34 PM > Brivaracetam King Laura 03/28/2024 12:16:34 PM > Brivaracetam, Test Code: 315184Yfubjp,Julia 04/05/2024 11:25:46 AM > , See phone encounter Coding Miscell Ref Lab Test 03/28/2024 00:00: 00:00:00P-Basic Metabolic Panel (BMP)eGFR by Vhbmytmqdl8615-88-05W73:00:0040mL/min/1.73m2>59 - mL/min/1.53q6HFwequtawUlbn, Laura 03/28/2024 12:15:34 PM > Brivaracetazm Isabelle Yu 04/03/2024 11:32:40 AM > See phone encounter Coding P-Basic Metabolic Panel (BMP ) 03/28/2024 00:00: 00:00:00P-Basic Metabolic Panel (BMP)Sodium 9714-85-66E16:00:27353rtlq/Z205-862 - mmol/LRevLaura Kim 03/28/2024 12:15:34 PM > Brivaracetam Isabelle Yu 04/03/2024 11:32:40 AM > See phone encounter Coding P-Basic Metabolic Panel (BMP ) Coding Sodium 03/28/2024 00:00:00003/28/2024 00:00:00P-Basic Metabolic Panel (BMP)Potassium 1529-64-14F63:00:004.4mmol/L3.5-5.3 - mmol/LReviewedKing, Laura 03/28/2024 12:15:34 PM > Brivaracetam Isabelle Yu 04/03/2024 11:32:40 AM > See phone encounter Coding P-Basic Metabolic Panel (BMP ) Coding Potassium 03/28/2024 00:00:00003/28/2024 00:00:00P-Basic Metabolic Panel (BMP)Glucose 6522-10-24P65:00:05476sc/dL65-99 - mg/dLHRevlyndKing, Laura 03/28/2024 12:15:34 PM > Brivaracetam Isabelle Yu 04/03/2024 11:32:40 AM > See phone encounter Coding P-Basic Metabolic Panel (BMP ) Coding Glucose 03/28/2024 00:00: 00:00:00P-Basic Metabolic Panel (BMP)Creatinine 5519-83-56U86:00:001.31mg/dL0.50-1.00 - mg/dLHReviemaurisiodKing, Laura 03/28/2024 12:15:34 PM > Brivaracetam Isabelle Yu 04/03/2024 11:32:40 AM > See phone encounter Coding P-Basic Metabolic Panel (BMP ) Coding Creatinine 03/28/2024 00:00:00003/28/2024 00:00:00P-Basic Metabolic Panel (BMP)CO2 6610-89-91S91:00:0023mmol/L22-32 - mmol/LReviewedKing, Laura 03/28/2024 12:15:34 PM > Brivaracetam Isabelle Yu 04/03/2024 11:32:40 AM > See phone encounter Coding P-Basic Metabolic Panel (BMP ) Coding CO2 03/28/2024 00:00: 00:00:00P-Basic Metabolic Panel (BMP)Chloride 3382-51-03G02:00:86245annb/L97-108 - mmol/LRevieweSherlyammon, Laura 03/28/2024 12:15:34 PM > Isabelle Long 04/03/2024 11:32:40 AM > See phone encounter Coding P-Basic Metabolic Panel (BMP ) Coding Chloride 03/28/2024 00:00:00003/28/2024 00:00:00P-Basic Metabolic Panel (BMP)Calcium 0690-66-77M23:00:009.8mg/dL8.6-10.4 - mg/dLLaura Barbosa 03/28/2024 12:15:34 PM > Isabelle Long 04/03/2024 11:32:40 AM > See phone encounter Coding P-Basic Metabolic Panel (BMP ) Coding Calcium 03/28/2024 00:00: 00:00:00P-Basic Metabolic Panel (BMP)BUN 9339-21-96Z31:00:0037mg/dL8-23 - mg/dLHRevLaura Kim 03/28/2024 12:15:34 PM > Isabelle Long 04/03/2024 11:32:40 AM > See phone encounter Coding P-Basic Metabolic Panel (BMP ) Coding BUN 03/28/2024 00:00: 00:00:00CBC Venipuncture (in house)platvince 6040-56-91X23:00:12042528 - 400ReErica Massey 03/28/2024 12:54:52 PM > Isabelle Yu 04/03/2024 11:32:40 AM > See phone encounter Coding CBC Venipuncture (in house) 03/28/2024 00:00: 00:00:00[facility]-21N46:00:0032.431 - 38ReErica Massey 03/28/2024 12:54:52 PM > Isabelle Yu 04/03/2024 11:32:40 AM > See phone encounter Coding CBC Venipuncture (in house) 03/28/2024 00:00: 00:00:00CBC Venipuncture (in house)[facility] 2209-51-09N01:00:0033.325 - 35ReErica Massey 03/28/2024 12:54:52 PM > Isabelle Yu 04/03/2024 11:32:40 AM > See phone encounter Coding CBC Venipuncture (in house) 03/28/2024 00:00: 00:00:00CBC Venipuncture (in house)mcv 7161-63-95U54:00:30251.675 - 100Erica Charles 03/28/2024 12:54:52 PM > Isabelle Yu 04/03/2024 11:32:40 AM > See phone encounter Coding CBC Venipuncture (in house) 03/28/2024 00:00: 00:00:00CBC Venipuncture (in house)hct 0663-96-06V49:00:0040.135 - 55ReErica Massey 03/28/2024 12:54:52 PM > Isabelle Yu 04/03/2024 11:32:40 AM > See phone encounter Coding CBC Venipuncture (in house) 03/28/2024 00:00: 00:00:00CBC Venipuncture (in house)hgb 7548-05-24T54:00:0013.011.5 - 16.5Erica Charles 03/28/2024 12:54:52 PM > Isabelle Yu 04/03/2024 11:32:40 AM > See phone encounter Coding CBC Venipuncture (in house) 03/28/2024 00:00: 00:00:00CBC Venipuncture (in house)rbc 7706-89-24I47:00:003.913.5 - 5.5ReErica Massey 03/28/2024 12:54:52 PM > Isabelle Yu 04/03/2024 11:32:40 AM > See phone encounter Coding CBC Venipuncture (in house) 03/28/2024 00:00:00003/28/2024 00:00:00CBC Venipuncture (in house)gran 7304-15-57C51:00:0070.635 - 80ReErica Massey 03/28/2024 12:54:52 PM > Isabelle Yu 04/03/2024 11:32:40 AM > See phone encounter Coding CBC Venipuncture (in house) 03/28/2024 00:00: 00:00:00CBC Venipuncture (in house)mid 7121-53-36P94:00:005.32 - 15Erica Charles 03/28/2024 12:54:52 PM > Isabelle Yu 04/03/2024 11:32:40 AM > See phone encounter Coding CBC Venipuncture (in house) 03/28/2024 00:00: 00:00:00CBC Venipuncture (in house)lymph 7396-15-40Z43:00:0024.115 - 50Erica Charles 03/28/2024 12:54:52 PM > Isabelle Yu 04/03/2024 11:32:40 AM > See phone encounter Coding CBC Venipuncture (in house) 03/28/2024 00:00: 00:00:00CBC Venipuncture (in house)wbc 2161-38-66O91:00:007.03.5 - 10Erica Charles 03/28/2024 12:54:52 PM > Isabelle Yu 04/03/2024 11:32:40 AM > See phone encounter Coding CBC Venipuncture (in house) 03/28/2024 00:00: 00:00:00Urinalysis - InhouseGluc 2480-71-67O31:00:00Laura Benedict 03/28/2024 11:26:55 AM > , Provider reviewed results while patient in office. Coding Urinalysis - Inhouse 03/28/2024 00:00: 00:00:00Urinalysis - InhouseBili 6328-41-60E33:00:00negReLizzetteGraysonLaura 03/28/2024 11:26:55 AM > , Provider reviewed results while patient in office. Coding Urinalysis - Inhouse 03/28/2024 00:00: 00:00:00Urinalysis - InhouseKetone 1635-54-72Z15:00:00negRevieweSaadGraysonLaura 03/28/2024 11:26:55 AM > , Provider reviewed results while patient in office. Coding Urinalysis - Inhouse 03/28/2024 00:00: 00:00:00Urinalysis - InhouseSp. Gr. 1520-66-55A31:00:001.025RevieweSaad[facility] [place] 03/28/2024 11:26:55 AM > , Provider reviewed results while patient in office. Coding Urinalysis - Inhouse 03/28/2024 00:00: 00:00:00Urinalysis - InhouseBlood 4142-49-05J13:00:00negReLizzettePromise [facility] Of [facility] [place] 03/28/2024 11:26:55 AM > , Provider reviewed results while patient in office. Coding Urinalysis - Inhouse 03/28/2024 00:00: 00:00:00Urinalysis - CbgfoamiQ5584-60-66K23:00:00 5.5ReviewedKammonPromise [facility] [place] 03/28/2024 11:26:55 AM > , Provider reviewed results while patient in office. Coding Urinalysis - Inhouse 03/28/2024 00:00: 00:00:00Urinalysis - InhouseProtein 3231-86-88D88:00:00traceRevieweSaadPromise [facility] [place] 03/28/2024 11:26:55 AM > , Provider reviewed results while patient in office. Coding Urinalysis - Inhouse 03/28/2024 00:00:00003/28/2024 00:00:00Urinalysis - InhouseUrobili 6957-54-99G01:00:003.2RevJulioLaura 03/28/2024 11:26:55 AM > , Provider reviewed results while patient in office. Coding Urinalysis - Inhouse 03/28/2024 00:00: 00:00:00Urinalysis - InhouseNitrite 3484-15-78I17:00:00negRevieweSaadPromise [facility] [place] 03/28/2024 11:26:55 AM > , Provider reviewed results while patient in office. Coding Urinalysis - Inhouse 03/28/2024 00:00: 00:00:00Urinalysis - InhouseLeuk 6425-27-16I66:00:00traceRevJulioPromise [facility] [place] 03/28/2024 11:26:55 AM > , Provider reviewed results while patient in office. Coding Urinalysis - Inhouse 03/28/2024 00:00: 00:00:00Urinalysis - InhouseColor/Clarity 9541-47-33U57:00:00yellow/clearRevieweSaadPromise [facility] [place] 03/28/2024 11:26:55 AM > , Provider reviewed results while patient in office. Coding Urinalysis - Inhouse 03/28/2024 00:00:00107/09/2023 00:00:00TEN-UTI aztyb9864-40-91D95:00:00Abnormal Triston Barnett 05/11/2024 2:28:27 PM > Pt needs to take Amoxicillin 500 mg TID x 7 days, sent to Stacy Gonzales 05/11/2024 2:55:11 PM > See phone encounter Coding TEN-UTI panel 05/09/2024 00:00:00107/09/2023 00:00:00P-Basic Metabolic Panel (BMP)eGFR by Wbezspdteu9063-39-73H11:00:0036mL/min/1.73m2>59 - mL/min/1.68u7YJdqlzmbqStacy Garcia 05/10/2024 1:05:52 PM > See phone encounter Coding P-Basic Metabolic Panel (BMP ) 05/09/2024 00:00:00107/09/2023 00:00:00P-Basic Metabolic Panel (BMP)Sodium 2268-19-33B88:00:50844wszz/H439-487 - mmol/LReviewedNolan,Stacy 05/10/2024 1:05:52 PM > See phone encounter Coding P-Basic Metabolic Panel (BMP ) Coding Sodium 05/09/2024 00:00:00107/09/2023 00:00:00P-Basic Metabolic Panel (BMP)Potassium 5426-49-04S87:00:004.3mmol/L3.5-5.3 - mmol/LReviewedNolan,Stacy 05/10/2024 1:05:52 PM > See phone encounter Coding P-Basic Metabolic Panel (BMP ) Coding Potassium 05/09/2024 00:00:00107/09/2023 00:00:00P-Basic Metabolic Panel (BMP)Glucose 7721-55-30B43:00:35972jd/dL65-99 - mg/dLHReviewedNolan,Stacy 05/10/2024 1:05:52 PM > See phone encounter Coding P-Basic Metabolic Panel (BMP ) Coding Glucose 05/09/2024 00:00:00107/09/2023 00:00:00P-Basic Metabolic Panel (BMP)Creatinine 5239-48-81A86:00:001.42mg/dL0.50-1.00 - mg/dLHReviewedNolan,Stacy 05/10/2024 1:05:52 PM > See phone encounter Coding P-Basic Metabolic Panel (BMP ) Coding Creatinine 05/09/2024 00:00:00107/09/2023 00:00:00P-Basic Metabolic Panel (BMP)CO2 0945-70-55U68:00:0028mmol/L22-32 - mmol/LReviewedNolan,Stacy 05/10/2024 1:05:52 PM > See phone encounter Coding P-Basic Metabolic Panel (BMP ) Coding CO2 05/09/2024 00:00:00107/09/2023 00:00:00P-Basic Metabolic Panel (BMP)Chloride 5778-32-73K12:00:27153lrnu/L97-108 - mmol/LReviewedNolan,Stacy 05/10/2024 1:05:52 PM > See phone encounter Coding P-Basic Metabolic Panel (BMP ) Coding Chloride 05/09/2024 00:00:00107/09/2023 00:00:00P-Basic Metabolic Panel (BMP)Calcium 4877-97-23H69:00:009.9mg/dL8.6-10.4 - mg/dLReviewedNolan,Stacy 05/10/2024 1:05:52 PM > See phone encounter Coding P-Basic Metabolic Panel (BMP ) Coding Calcium 05/09/2024 00:00:00107/09/2023 00:00:00P-Basic Metabolic Panel (BMP)BUN 9179-18-63H51:00:0036mg/dL8-23 - mg/dLHReviewedNolan,Stacy 05/10/2024 1:05:52 PM > See phone encounter Coding P-Basic Metabolic Panel (BMP ) Coding BUN 05/09/2024 00:00: 00:00:00Urinalysis - InhouseGluc 1231-71-87S76:00:00negReLaura Crocker 05/10/2024 1:10:34 PM > , Provider reviewed results while patient in office. Coding Urinalysis - Inhouse 05/09/2024 00:00:00107/09/2023 00:00:00Urinalysis - InhouseBili 4862-40-88R40:00:00negRevieweLaura Nash 05/10/2024 1:10:34 PM > , Provider reviewed results while patient in office. Coding Urinalysis - Inhouse 05/09/2024 00:00:00107/09/2023 00:00:00Urinalysis - InhouseKetone 2642-71-48S45:00:00negRevieweLaura Nash 05/10/2024 1:10:34 PM > , Provider reviewed results while patient in office. Coding Urinalysis - Inhouse 05/09/2024 00:00: 00:00:00Urinalysis - InhouseSp. Gr. 3219-07-18R25:00:001.020RevieweSaad[facility] [place] 05/10/2024 1:10:34 PM > , Provider reviewed results while patient in office. Coding Urinalysis - Inhouse 05/09/2024 00:00: 00:00:00Urinalysis - InhouseBlood 4802-97-94S49:00:00negReviewedKingPromise [facility] [place] 05/10/2024 1:10:34 PM > , Provider reviewed results while patient in office. Coding Urinalysis - Inhouse 05/09/2024 00:00: 00:00:00Urinalysis - NtgyyyeyL2454-78-56N64:00:00 5.5ReviewedKammonPromise [facility] [place] 05/10/2024 1:10:34 PM > , Provider reviewed results while patient in office. Coding Urinalysis - Inhouse 05/09/2024 00:00: 00:00:00Urinalysis - InhouseProtein 1083-90-32D63:00:00negRevieweSaadPromise [facility] [place] 05/10/2024 1:10:34 PM > , Provider reviewed results while patient in office. Coding Urinalysis - Inhouse 05/09/2024 00:00: 00:00:00Urinalysis - InhouseUrobili 7318-43-09A35:00:003.2ReviewedKammonPromise [facility] [place] 05/10/2024 1:10:34 PM > , Provider reviewed results while patient in office. Coding Urinalysis - Inhouse 05/09/2024 00:00: 00:00:00Urinalysis - InhouseNitrite 9744-23-21I84:00:00negReviewedKingPromise [facility] [place] 05/10/2024 1:10:34 PM > , Provider reviewed results while patient in office. Coding Urinalysis - Inhouse 05/09/2024 00:00: 00:00:00Urinalysis - InhouseLeuk 5008-10-87S38:00:00traceRevieAdyLaura 05/10/2024 1:10:34 PM > , Provider reviewed results while patient in office. Coding Urinalysis - Inhouse 05/09/2024 00:00: 00:00:00Urinalysis - InhouseColor/Clarity 0592-86-41G45:00:00yellow/clearReviewedKammonPromise [facility] [place] 05/10/2024 1:10:34 PM > , Provider reviewed results while patient in office. Coding Urinalysis - Inhouse 05/09/2024 00:00: 00:00:00LC-Brivaracetam level serumBrivaracetam 6561-57-01W76:00:003.86ug/mL0.20 - 2.00 - ug/mLIsabelle Mackey 07/06/2024 8:50:10 AM > See phone encounter Coding LC-Brivaracetam level serum 06/29/2024 00:00: 00:00:00P-Vitamin D 25-HydroxyVitamin D 25-Hydroxy 7833-65-51H86:00:0067.3ng/mL30.0-100.0 - ng/mLRIsabelle Cobian 08/12/2024 1:27:16 PM > See phone encounter Coding P-Vitamin D 25-Hydroxy Coding Vitamin D 25-Hydroxy 08/11/2024 00:00: 00:00:00P-TSH reflex to FT4TSH reflex to FT4 1896-70-74V93:00:004.20mU/L0.43-5.25 - mU/LRIsabelle Cobian 08/12/2024 1:27:16 PM > See phone encounter Coding P-TSH reflex to FT4 Coding TSH reflex to FT4 08/11/2024 00:00: 00:00:82J-QgkvwyufaaZvjuiewqhi3601-10JtqzzifrkkJzpjiyagqe6473-77-60G15:00:00 3.3mg/dL2.5-4.5 - mg/dLIsabelle Torres 08/12/2024 1:27:16 PM > See phone encounter Coding P-Phosphorus Coding Phosphorus 08/11/2024 00:00: 00:00:03V-DcsziiimeJuoqcqrfv7347-00SctnjjwxtGigfocumt7374-10-38N34:00:002.3 mg/dL1.6-2.4 - mg/dLReIsabelle Roman 08/12/2024 1:27:16 PM > See phone encounter Coding P-Magnesium Coding Magnesium 08/11/2024 00:00: 00:00:00P-Culture, UrineSpecimen Source 5183-93-73L81:00:00Urine - CC-Isabelle Torres 08/14/2024 9:01:03 AM > See phone encounter Coding P-Culture, Urine 08/11/2024 00:00: 00:00:00P-Culture, UrineCulture, Urine 9228-20-65D23:00:00See Isabelle Marroquin 08/14/2024 9:01:03 AM > See phone encounter Coding P-Culture, Urine Coding Culture, Urine 08/11/2024 00:00: 00:00:00P-Comprehensive Metabolic Panel (CMP)eGFR by Oeymoxuimh5075-33-72N96:00:0038mL/min/1.73m2>59 - mL/min/1.04w5WGbqfwnfjIsabelle Garcia 08/12/2024 1:27:16 PM > See phone encounter Coding P-Comprehensive Metabolic Pa rkystal (CMP) 08/11/2024 00:00: 00:00:00P-Comprehensive Metabolic Panel (CMP) Jpatlyr9577-57-80O49:00:007.0g/dL6.0-8.3 - g/dLIsabelle Torres 08/12/2024 1:27:16 PM > See phone encounter Coding P-Comprehensive Metabolic Pa krystal (CMP) Coding Protein 08/11/2024 00:00: 00:00:00P-Comprehensive Metabolic Panel (CMP) Tvsvon4381-04-45J32:00:68113mdgk/R932-869 - mmol/Isabelle Vicente 08/12/2024 1:27:16 PM > See phone encounter Coding P-Comprehensive Metabolic Pa krystal (CMP) Coding Sodium 08/11/2024 00:00: 00:00:00P-Comprehensive Metabolic Panel (CMP) Umwaoqyie7522-74-03N46:00:005.1mmol/L3.5-5.3 - mmol/Isabelle Vicente 08/12/2024 1:27:16 PM > See phone encounter Coding P-Comprehensive Metabolic Pa krystal (CMP) Coding Potassium 08/11/2024 00:00: 00:00:00P-Comprehensive Metabolic Panel (CMP) Flikrgs0230-95-71T95:00:0092mg/dL65-99 - mg/dLIsabelle Torres 08/12/2024 1:27:16 PM > See phone encounter Coding P-Comprehensive Metabolic Pa krystal (CMP) Coding Glucose 08/11/2024 00:00: 00:00:00P-Comprehensive Metabolic Panel (CMP) Wcbeoeccde6985-37-88U77:00:001.35mg/dL0.50-1.00 - mg/dLIsabelle Mackey 08/12/2024 1:27:16 PM > See phone encounter Coding P-Comprehensive Metabolic Pa krystal (CMP) Coding Creatinine 08/11/2024 00:00: 00:00:00P-Comprehensive Metabolic Panel (CMP)CO2 5118-25-46F65:00:0027mmol/L22-32 - mmol/Isabelle Vicente 08/12/2024 1:27:16 PM > See phone encounter Coding P-Comprehensive Metabolic Pa krystal (CMP) Coding CO2 08/11/2024 00:00: 00:00:00P-Comprehensive Metabolic Panel (CMP) Rxsfbqxo6079-13-08Z25:00:98882zdls/L97-108 - mmol/LRevIsabelle James 08/12/2024 1:27:16 PM > See phone encounter Coding P-Comprehensive Metabolic Pa krystal (CMP) Coding Chloride 08/11/2024 00:00: 00:00:00P-Comprehensive Metabolic Panel (CMP) Cyctbry8870-91-50C99:00:0010.2mg/dL8.6-10.4 - mg/dLReIsabelle Roman 08/12/2024 1:27:16 PM > See phone encounter Coding P-Comprehensive Metabolic Pa krystal (CMP) Coding Calcium 08/11/2024 00:00: 00:00:00P-Comprehensive Metabolic Panel (CMP)BUN 0542-77-00S39:00:0035mg/dL8-23 - mg/dLIsabelle Mackey 08/12/2024 1:27:16 PM > See phone encounter Coding P-Comprehensive Metabolic Pa krystal (CMP) Coding BUN 08/11/2024 00:00: 00:00:00P-Comprehensive Metabolic Panel (CMP) Bilirubin, Rtxld6981-54-60M16:00:000.3mg/dL<0.2-1.2 - mg/dLMelissaIsabelle 08/12/2024 1:27:16 PM > See phone encounter Coding P-Comprehensive Metabolic Pa krystal (CMP) Coding Bilirubin, Total 08/11/2024 00:00: 00:00:00P-Comprehensive Metabolic Panel (CMP)AST (SGOT)7848-08-95D02:00:0013IU/L<5-40 - IU/LRevieIsabelle Lisa 08/12/2024 1:27:16 PM > See phone encounter Coding P-Comprehensive Metabolic Pa krystal (CMP) Coding AST (SGOT) 08/11/2024 00:00: 00:00:00P-Comprehensive Metabolic Panel (CMP)ALT (SGPT)8469-27-80X05:00:0014IU/L<5-47 - IU/LReviewedWhalen,Isabelle 08/12/2024 1:27:16 PM > See phone encounter Coding P-Comprehensive Metabolic Pa krystal (CMP) Coding ALT (SGPT) 08/11/2024 00:00: 00:00:00P-Comprehensive Metabolic Panel (CMP) Alkaline Umcdwcxhqzn7416-58-47H41:00:0093IU/L35-121 - IU/Isabelle Vicente 08/12/2024 1:27:16 PM > See phone encounter Coding P-Comprehensive Metabolic Pa krystal (CMP) Coding Alkaline Phosphatase 08/11/2024 00:00: 00:00:00P-Comprehensive Metabolic Panel (CMP) Hvrattq1555-66-67P39:00:004.1g/dL3.5-5.3 - g/dLReIsabelle Roman 08/12/2024 1:27:16 PM > See phone encounter Coding P-Comprehensive Metabolic Pa krystal (CMP) Coding Albumin 08/11/2024 00:00: 00:00:00P-Comprehensive Metabolic Panel (CMP)A/G Kjorg1247-42-56X30:00:001.41.1-2.5 -Isabelle Torres 08/12/2024 1:27:16 PM > See phone encounter Coding P-Comprehensive Metabolic Pa krystal (CMP) Coding A/G Ratio 08/11/2024 00:00: 00:00:00P-Vitamin H63Ewemvxp B12 6616-80-93W46:00:260865py/lS466-4722 - pg/mLIsabelle Mackey 08/12/2024 1:27:16 PM > See phone encounter Coding P-Vitamin B12 Coding Vitamin B12 08/11/2024 00:00: 00:00:00CBC Venipuncture (in house)[place] 8888-80-41Y85:00:94578743 - 400Laura Barbosa 08/11/2024 5:01:49 PM > Isabelle Yu 08/12/2024 1:27:16 PM > See phone encounter Coding CBC Venipuncture (in house) 08/11/2024 00:00: 00:00:00CBC Venipuncture (in house)[facility] 6891-33-04G52:00:0034.031 - 38[facility]Saad[facility] 08/11/2024 5:01:49 PM > AimeeIsabelle wellington 08/12/2024 1:27:16 PM > See phone encounter Coding CBC Venipuncture (in house) 08/11/2024 00:00: 00:00:00CBC Venipuncture (in house)[facility] 4401-15-40J84:00:0033.725 - 35ReLizzettePromise [facility] [place] 08/11/2024 5:01:49 PM > AimeeIsabelle 08/12/2024 1:27:16 PM > See phone encounter Coding CBC Venipuncture (in house) 08/11/2024 00:00: 00:00:00CBC Venipuncture (in house)[facility] 9935-89-12W94:00:0098.975 - 100ReLizzettePromise [facility] [place] 08/11/2024 5:01:49 PM > AimeeIsabelle wellington 08/12/2024 1:27:16 PM > See phone encounter Coding CBC Venipuncture (in house) 08/11/2024 00:00: 00:00:00CBC Venipuncture (in house)[facility] 5636-71-64S45:00:0038.535 - 55ReLizzettePromise [facility] [place] 08/11/2024 5:01:49 PM > AimeeIsabelle 08/12/2024 1:27:16 PM > See phone encounter Coding CBC Venipuncture (in house) 08/11/2024 00:00: 00:00:00CBC Venipuncture (in house)[facility] 9838-89-38D24:00:0013.111.5 - 16.5ReLizzettePromise [facility] [place] 08/11/2024 5:01:49 PM > AimeeIsabelle 08/12/2024 1:27:16 PM > See phone encounter Coding CBC Venipuncture (in house) 08/11/2024 00:00: 00:00:00CBC Venipuncture (in house)rbc 3930-29-34V70:00:003.893.5 - 5.5RevieweLaura Nash 08/11/2024 5:01:49 PM > Isabelle Yu 08/12/2024 1:27:16 PM > See phone encounter Coding CBC Venipuncture (in house) 08/11/2024 00:00: 00:00:00CBC Venipuncture (in house)gran 3841-00-90K64:00:0067.9%35 - 80RevieweSaad,[facility] 08/11/2024 5:01:49 PM > AimeeIsabelle french 08/12/2024 1:27:16 PM > See phone encounter Coding CBC Venipuncture (in house) 08/11/2024 00:00: 00:00:00CBC Venipuncture (in house)[facility] 6777-76-08J32:00:005.5%2 - 15RevieweSaadPromise [facility] [place] 08/11/2024 5:01:49 PM > AimeeIsabelle french 08/12/2024 1:27:16 PM > See phone encounter Coding CBC Venipuncture (in house) 08/11/2024 00:00: 00:00:00CBC Venipuncture (in house)lymph 8098-37-48B89:00:0026.6%15 - 50RevieweSaadPromise [facility] [place] 08/11/2024 5:01:49 PM > AimeeIsabelle wellington 08/12/2024 1:27:16 PM > See phone encounter Coding CBC Venipuncture (in house) 08/11/2024 00:00: 00:00:00CBC Venipuncture (in house)wbc 3891-68-57W82:00:008.83.5 - 10RevieweGrayson Nashira 08/11/2024 5:01:49 PM > Isabelle Yu 08/12/2024 1:27:16 PM > See phone encounter Coding CBC Venipuncture (in house) 08/11/2024 00:00: 00:00:00Urinalysis - InhouseGluc 3394-98-44B61:00:00negReAmaliaChelsie 08/11/2024 4:23:26 PM > Provider reviewed results while patient in office. Coding Urinalysis - Inhouse 08/11/2024 00:00: 00:00:00Urinalysis - InhouseBili 9490-61-14I13:00:00negReAmaliaChelsie 08/11/2024 4:23:26 PM > Provider reviewed results while patient in office. Coding Urinalysis - Inhouse 08/11/2024 00:00: 00:00:00Urinalysis - InhouseKetone 6634-51-48Y17:00:00negJakeChelsie 08/11/2024 4:23:26 PM > Provider reviewed results while patient in office. Coding Urinalysis - Inhouse 08/11/2024 00:00: 00:00:00Urinalysis - InhouseSp. Gr. 4013-20-40A98:00:001.020ReAmaliaChelsie 08/11/2024 4:23:26 PM > Provider reviewed results while patient in office. Coding Urinalysis - Inhouse 08/11/2024 00:00: 00:00:00Urinalysis - InhouseBlood 3482-02-35F38:00:00negReAmaliaChelsie 08/11/2024 4:23:26 PM > Provider reviewed results while patient in office. Coding Urinalysis - Inhouse 08/11/2024 00:00: 00:00:00Urinalysis - DrfxyxcqG0192-17-25G37:00:00 5.5RevieweNeenaChelsie 08/11/2024 4:23:26 PM > Provider reviewed results while patient in office. Coding Urinalysis - Inhouse 08/11/2024 00:00: 00:00:00Urinalysis - InhouseProtein 7086-06-71Z78:00:00negChelsie Joseph 08/11/2024 4:23:26 PM > Provider reviewed results while patient in office. Coding Urinalysis - Inhouse 08/11/2024 00:00: 00:00:00Urinalysis - InhouseUrobili 4004-69-41C29:00:003.2RevChelsie Tyler 08/11/2024 4:23:26 PM > Provider reviewed results while patient in office. Coding Urinalysis - Inhouse 08/11/2024 00:00: 00:00:00Urinalysis - InhouseNitrite 5903-87-24W61:00:00negChelsie Joseph 08/11/2024 4:23:26 PM > Provider reviewed results while patient in office. Coding Urinalysis - Inhouse 08/11/2024 00:00: 00:00:00Urinalysis - InhouseLeuk 9682-36-41S94:00:00traceRSaharaChelsie 08/11/2024 4:23:26 PM > Provider reviewed results while patient in office. Coding Urinalysis - Inhouse 08/11/2024 00:00: 00:00:00Urinalysis - InhouseColor/Clarity 6795-70-08R93:00:00yellowJakeChelsie 08/11/2024 4:23:26 PM > Provider reviewed results while patient in office. Coding Urinalysis - Inhouse 08/11/2024 00:00: 00:00:00TEN-UTI awjpn6927-35-71Q93:00:00Negative Erica Charles 09/08/2024 10:53:58 AM > sent to Laura Eiesnberg 09/08/2024 11:09:36 AM > Ptmicheline Sharp informed Coding TEN-UTI panel 09/06/2024 00:00: 00:00:00Urinalysis - InhouseGluc 5451-93-60W15:00:00NegReviewedKingPromise [facility] 09/06/2024 10:24:14 AM > AimeeIsabelle 09/08/2024 11:03:46 AM >see TENS panel results Coding Urinalysis - Inhouse 09/06/2024 00:00: 00:00:00Urinalysis - InhouseBili 3536-49-02G11:00:00NegReviewedKingPromise [facility] [place] 09/06/2024 10:24:14 AM > AimeeIsabelle 09/08/2024 11:03:46 AM >see TENS panel results Coding Urinalysis - Inhouse 09/06/2024 00:00: 00:00:00Urinalysis - InhouseKetone 6548-27-59N19:00:00TraceReviewedKammonPromise Hospital Of [facility] [place] 09/06/2024 10:24:14 AM > Aimee, Isabelle 09/08/2024 11:03:46 AM >see TENS panel results Coding Urinalysis - Inhouse 09/06/2024 00:00: 00:00:00Urinalysis - InhouseSp. Gr. 0184-20-50Z00:00:00>=1.030ReviewedKammonLaura 09/06/2024 10:24:14 AM > Aimee, Isabelle 09/08/2024 11:03:46 AM >see TENS panel results Coding Urinalysis - Inhouse 09/06/2024 00:00: 00:00:00Urinalysis - InhouseBlood 1249-42-58U27:00:00NegReviewedKingLaura 09/06/2024 10:24:14 AM > Aimee Isabelle 09/08/2024 11:03:46 AM >see TENS panel results Coding Urinalysis - Inhouse 09/06/2024 00:00: 00:00:00Urinalysis - EgzboszmF4608-72-00L38:00:00 5.5ReviewedKammonLaura 09/06/2024 10:24:14 AM > AimeeIsabelle 09/08/2024 11:03:46 AM >see TENS panel results Coding Urinalysis - Inhouse 09/06/2024 00:00: 00:00:00Urinalysis - InhouseProtein 8110-12-21M72:00:00NegRevieweSaadLaura 09/06/2024 10:24:14 AM > Aimee, Isabelle 09/08/2024 11:03:46 AM >see TENS panel results Coding Urinalysis - Inhouse 09/06/2024 00:00: 00:00:00Urinalysis - InhouseUrobili 4004-46-29O16:00:003.2RevieAdyPromise [facility] [place] 09/06/2024 10:24:14 AM > AimeeIsabelle french 09/08/2024 11:03:46 AM >see TENS panel results Coding Urinalysis - Inhouse 09/06/2024 00:00: 00:00:00Urinalysis - InhouseNitrite 3596-65-48H78:00:00NegReviewedKammonPromise Hospital Of [facility] [place] 09/06/2024 10:24:14 AM > Aimee, Isabelle 09/08/2024 11:03:46 AM >see TENS panel results Coding Urinalysis - Inhouse 09/06/2024 00:00: 00:00:00Urinalysis - InhouseLeuk 0312-27-97V17:00:00TraceReviemaurisiodKammonPromise [facility] [place] 09/06/2024 10:24:14 AM > AimeeIsabelle wellington 09/08/2024 11:03:46 AM >see TENS panel results Coding Urinalysis - Inhouse 09/06/2024 00:00: 00:00:00Urinalysis - InhouseColor/Clarity 0614-41-02N45:00:00dark yellow/cloudyReviewedKammonLaura 09/06/2024 10:24:14 AM > Aimee, Isabelle 09/08/2024 11:03:46 AM >see TENS panel results Coding Urinalysis - Inhouse 09/06/2024 00:00: 00:00:00P-Culture, UrineSpecimen Source 6161-52-79C23:00:00Urine - Void-ReviewedIsabelle Yu 10/30/2024 09:21:05 AM > See phone encounter Coding P-Culture, Urine 10/25/2024 00:00: 00:00:00P-Culture, UrineCulture, Urine 4185-28-19S25:00:00See Below-ReviewedIsabelle Yu 10/30/2024 09:21:05 AM > See phone encounter Coding P-Culture, Urine Coding Culture, Urine 10/25/2024 00:00: 00:00:00Urinalysis - InhouseBili 3823-38-55B38:00:00NegRevieweLaura Nash 10/25/2024 04:23:34 PM > Provider reviewed results while patient in office. Coding Urinalysis - Inhouse 10/25/2024 00:00: 00:00:00Urinalysis - InhouseKetone 9071-43-73L05:00:00NegRevieweLaura Nash 10/25/2024 04:23:34 PM > Provider reviewed results while patient in office. Coding Urinalysis - Inhouse 10/25/2024 00:00: 00:00:00Urinalysis - InhouseSp. Gr. 7853-38-61Y42:00:001.020RevieweLaura Nash 10/25/2024 04:23:34 PM > Provider reviewed results while patient in office. Coding Urinalysis - Inhouse 10/25/2024 00:00: 00:00:00Urinalysis - InhouseBlood 6765-83-99A52:00:00NegRevieweLaura Nash 10/25/2024 04:23:34 PM > Provider reviewed results while patient in office. Coding Urinalysis - Inhouse 10/25/2024 00:00: 00:00:00Urinalysis - XbmxthtfD6546-26-94T44:00:00 5.0ReviewedKammon, [facility] 10/25/2024 04:23:34 PM > Provider reviewed results while patient in office. Coding Urinalysis - Inhouse 10/25/2024 00:00: 00:00:00Urinalysis - InhouseProtein 0916-38-89W51:00:001+ReviewedKing [facility] 10/25/2024 04:23:34 PM > Provider reviewed results while patient in office. Coding Urinalysis - Inhouse 10/25/2024 00:00: 00:00:00Urinalysis - InhouseUrobili 8993-72-52D87:00:003.2RevieweSaad [facility] 10/25/2024 04:23:34 PM > Provider reviewed results while patient in office. Coding Urinalysis - Inhouse 10/25/2024 00:00: 00:00:00Urinalysis - InhouseNitrite 4381-66-90E46:00:00PosRevieweSaad [facility] 10/25/2024 04:23:34 PM > Provider reviewed results while patient in office. Coding Urinalysis - Inhouse 10/25/2024 00:00: 00:00:00Urinalysis - InhouseLeuk 9559-51-32N81:00:001+ReviewedKing [facility] 10/25/2024 04:23:34 PM > Provider reviewed results while patient in office. Coding Urinalysis - Inhouse 10/25/2024 00:00: 00:00:00Urinalysis - InhouseColor/Clarity 4319-15-24Q52:00:00yellow/clearReviewedKing [facility] 10/25/2024 04:23:34 PM > Provider reviewed results while patient in office. Coding Urinalysis - Inhouse 10/25/2024 00:00: 00:00:00P-Culture, UrineSpecimen Source 6288-09-82T90:00:00Urine - Void-ReviewedKingLaura 11/02/2024 11:46:13 AM > Pt's daughter Lila informed Coding P-Culture, Urine 10/31/2024 00:00: 00:00:00P-Culture, UrineCulture, Urine 4323-11-65Z11:00:00See Below-ReviewedKingLaura 11/02/2024 11:46:13 AM > Pt's daughter Lila informed Coding P-Culture, Urine Coding Culture, Urine 10/31/2024 00:00: 00:00:00Urinalysis - InhouseGluc 8310-67-77T31:00:00negRevieweNeena [place] 10/31/2024 03:36:18 PM > Coding Urinalysis - Inhouse 10/31/2024 00:00: 00:00:00Urinalysis - InhouseBili 8356-50-09T71:00:00negReAmalia [place] 10/31/2024 03:36:18 PM > Coding Urinalysis - Inhouse 10/31/2024 00:00: 00:00:00Urinalysis - InhouseKetone 5787-28-89O82:00:00negReAmalia [place] 10/31/2024 03:36:18 PM > Coding Urinalysis - Inhouse 10/31/2024 00:00: 00:00:00Urinalysis - InhouseSp. Gr. 8055-13-33Y59:00:001.020RevieweNeena [place] 10/31/2024 03:36:18 PM > Coding Urinalysis - Inhouse 10/31/2024 00:00: 00:00:00Urinalysis - InhouseBlood 0862-53-21A46:00:00negReAmalia [place] 10/31/2024 03:36:18 PM > Coding Urinalysis - Inhouse 10/31/2024 00:00: 00:00:00Urinalysis - RikdwmcrO9461-16-88Z56:00:00 5.5RevieweNeena [place] 10/31/2024 03:36:18 PM > Coding Urinalysis - Inhouse 10/31/2024 00:00: 00:00:00Urinalysis - InhouseProtein 8884-27-06Q93:00:00negJake [place] 10/31/2024 03:36:18 PM > Coding Urinalysis - Inhouse 10/31/2024 00:00: 00:00:00Urinalysis - InhouseUrobili 9746-89-14N22:00:003.2RevieVanessa [place] 10/31/2024 03:36:18 PM > Coding Urinalysis - Inhouse 10/31/2024 00:00: 00:00:00Urinalysis - InhouseNitrite 1324-40-42D14:00:00negJake [place] 10/31/2024 03:36:18 PM > Coding Urinalysis - Inhouse 10/31/2024 00:00: 00:00:00Urinalysis - InhouseLeuk 7384-33-58A75:00:00traceRSahara [place] 10/31/2024 03:36:18 PM > Coding Urinalysis - Inhouse 10/31/2024 00:00: 00:00:00Urinalysis - InhouseColor/Clarity 1800-99-99P67:00:00yellowReAmalia [place] 10/31/2024 03:36:18 PM > Coding Urinalysis - Inhouse 10/31/2024 00:00: 00:00:00TEN-UTI tqszv5095-22-93J83:00:00E. Coli-sensitiveReIsabelle Roman 11/13/2024 04:38:45 PM >pt started on cefuroximeIsabelle Yu 11/14/2024 10:18:33 AM> See phone encounter Coding TEN-UTI panel 11/10/2024 00:00: 00:00:00P-TSH reflex to FT4TSH reflex to FT4 9685-09-27E50:00:002.68mU/L0.43-5.25 - mU/Isabelle Vicente 11/14/2024 10:18:19 AM > See phone encounter Coding P-TSH reflex to FT4 Coding TSH reflex to FT4 11/10/2024 00:00: 00:00:00P-Comprehensive Metabolic Panel (CMP)eGFR by Iivyckcrmg7636-81-56C56:00:0034mL/min/1.73m2>59 - mL/min/1.88i8APkkuaogsIsabelle Klein 11/14/2024 10:17:55 AM > See phone encounter Coding P-Comprehensive Metabolic Pa krystal (CMP) 11/10/2024 00:00: 00:00:00P-Comprehensive Metabolic Panel (CMP) Nyycsgr5042-35-44K16:00:006.6g/dL6.0-8.3 - g/dLIsabelle Torres 11/14/2024 10:17:55 AM > See phone encounter Coding P-Comprehensive Metabolic Pa krystal (CMP) Coding Protein 11/10/2024 00:00: 00:00:00P-Comprehensive Metabolic Panel (CMP) Zidvgt2498-38-37Q97:00:77198tspv/F106-200 - mmol/LRIsabelle Cobian 11/14/2024 10:17:55 AM > See phone encounter Coding P-Comprehensive Metabolic Pa krystal (CMP) Coding Sodium 11/10/2024 00:00: 00:00:00P-Comprehensive Metabolic Panel (CMP) Ocosvauwr5560-95-34B18:00:004.1mmol/L3.5-5.3 - mmol/LRevIsabelle James 11/14/2024 10:17:55 AM > See phone encounter Coding P-Comprehensive Metabolic Pa krystal (CMP) Coding Potassium 11/10/2024 00:00: 00:00:00P-Comprehensive Metabolic Panel (CMP) Tncgvrf8939-61-40Y66:00:39200qx/dL65-99 - mg/dLHReviewedWhalen, Isabelle 11/14/2024 10:17:55 AM > See phone encounter Coding P-Comprehensive Metabolic Pa krystal (CMP) Coding Glucose 11/10/2024 00:00: 00:00:00P-Comprehensive Metabolic Panel (CMP) Msnyculmma8455-56-62J03:00:001.50mg/dL0.50-1.00 - mg/dLIsabelle Mackey 11/14/2024 10:17:55 AM > See phone encounter Coding P-Comprehensive Metabolic Pa krystal (CMP) Coding Creatinine 11/10/2024 00:00: 00:00:00P-Comprehensive Metabolic Panel (CMP)CO2 3856-38-83O15:00:0024mmol/L22-32 - mmol/LRevIsabelle James 11/14/2024 10:17:55 AM > See phone encounter Coding P-Comprehensive Metabolic Pa krystal (CMP) Coding CO2 11/10/2024 00:00: 00:00:00P-Comprehensive Metabolic Panel (CMP) Fxcfjsrw0167-45-72L84:00:37875prar/L97-108 - mmol/LRIsabelle Cobian 11/14/2024 10:17:55 AM > See phone encounter Coding P-Comprehensive Metabolic Pa krystal (CMP) Coding Chloride 11/10/2024 00:00: 00:00:00P-Comprehensive Metabolic Panel (CMP) Hkhylfi1677-48-78I16:00:009.9mg/dL8.6-10.4 - mg/dLReIsabelle Roman 11/14/2024 10:17:55 AM > See phone encounter Coding P-Comprehensive Metabolic Pa krystal (CMP) Coding Calcium 11/10/2024 00:00: 00:00:00P-Comprehensive Metabolic Panel (CMP)BUN 7414-17-49U40:00:0029mg/dL8-23 - mg/dLIsabelle Mackey 11/14/2024 10:17:55 AM > See phone encounter Coding P-Comprehensive Metabolic Pa krystal (CMP) Coding BUN 11/10/2024 00:00: 00:00:00P-Comprehensive Metabolic Panel (CMP) Bilirubin, Pmraf7123-42-99A73:00:000.3mg/dL<0.2-1.2 - mg/dLIsabelle Torres 11/14/2024 10:17:55 AM > See phone encounter Coding P-Comprehensive Metabolic Pa krystal (CMP) Coding Bilirubin, Total 11/10/2024 00:00: 00:00:00P-Comprehensive Metabolic Panel (CMP)AST (SGOT)7866-75-33O33:00:0014IU/L<5-40 - IU/LRevieweIsabelle Daniels 11/14/2024 10:17:55 AM > See phone encounter Coding P-Comprehensive Metabolic Pa krystal (CMP) Coding AST (SGOT) 11/10/2024 00:00: 00:00:00P-Comprehensive Metabolic Panel (CMP)ALT (SGPT)2980-80-25R58:00:0018IU/L<5-47 - IU/LRevieIsabelle Lisa 11/14/2024 10:17:55 AM > See phone encounter Coding P-Comprehensive Metabolic Pa krystal (CMP) Coding ALT (SGPT) 11/10/2024 00:00: 00:00:00P-Comprehensive Metabolic Panel (CMP) Alkaline Hymsjcjrann1266-77-08C03:00:0090IU/L35-121 - IU/LRevieIsabelle Lisa 11/14/2024 10:17:55 AM > See phone encounter Coding P-Comprehensive Metabolic Pa krystal (CMP) Coding Alkaline Phosphatase 11/10/2024 00:00: 00:00:00P-Comprehensive Metabolic Panel (CMP) Cocshlb5282-33-57R88:00:003.7g/dL3.5-5.3 - g/dLIsabelle Torres 11/14/2024 10:17:55 AM > See phone encounter Coding P-Comprehensive Metabolic Pa krystal (CMP) Coding Albumin 11/10/2024 00:00: 00:00:00P-Comprehensive Metabolic Panel (CMP)A/G Rscie1778-30-93X75:00:001.31.1-2.5 -Isabelle Torres 11/14/2024 10:17:55 AM > See phone encounter Coding P-Comprehensive Metabolic Pa krystal (CMP) Coding A/G Ratio 11/10/2024 00:00: 00:00:00CBC Venipuncture (in house)[facility] 4263-42-42G78:00:44878920 - 400RevieweGrayson Nashira 11/10/2024 03:12:10 PM >Triston Campos 11/11/2024 10:25:55 AM > Coding CBC Venipuncture (in house) 11/10/2024 00:00: 00:00:00CBC Venipuncture (in house)[facility] 6892-96-51Y84:00:0033.631 - 38RevieweSaad [facility] 11/10/2024 03:12:10 PM >Triston Campos 11/11/2024 10:25:55 AM > Coding CBC Venipuncture (in house) 11/10/2024 00:00: 00:00:00CBC Venipuncture (in house)[facility] 3453-23-89D82:00:0033.225 - 35RevieweSaad [facility] 11/10/2024 03:12:10 PM >Triston Campos 11/11/2024 10:25:55 AM > Coding CBC Venipuncture (in house) 11/10/2024 00:00: 00:00:00CBC Venipuncture (in house)[facility] 4737-55-85Y66:00:0098.775 - 100ReLizzette [facility] 11/10/2024 03:12:10 PM >Triston Campos T 11/11/2024 10:25:55 AM > Coding CBC Venipuncture (in house) 11/10/2024 00:00: 00:00:00CBC Venipuncture (in house)hct 6383-47-30V73:00:0038.135 - 55ReviewedKing, [facility] 11/10/2024 03:12:10 PM >Macedon,Triston T 11/11/2024 10:25:55 AM > Coding CBC Venipuncture (in house) 11/10/2024 00:00: 00:00:00CBC Venipuncture (in house)hgb 2174-59-88W14:00:0012.811.5 - 16.5ReviewedKing, [facility] 11/10/2024 03:12:10 PM >MacedonTriston T 11/11/2024 10:25:55 AM > Coding CBC Venipuncture (in house) 11/10/2024 00:00: 00:00:00CBC Venipuncture (in house)rbc 9945-63-32D60:00:003.863.5 - 5.5ReviewedKing, [facility] 11/10/2024 03:12:10 PM >MacedonTriston T 11/11/2024 10:25:55 AM > Coding CBC Venipuncture (in house) 11/10/2024 00:00: 00:00:00CBC Venipuncture (in house)gran 8394-79-09V91:00:0071.3%35 - 80ReviewedKammon, [facility] 11/10/2024 03:12:10 PM >MacedonTriston T 11/11/2024 10:25:55 AM > Coding CBC Venipuncture (in house) 11/10/2024 00:00: 00:00:00CBC Venipuncture (in house)[facility] 2336-32-63P32:00:005.4%2 - 15ReviewedKammon, [facility] 11/10/2024 03:12:10 PM >MacedonTriston T 11/11/2024 10:25:55 AM > Coding CBC Venipuncture (in house) 11/10/2024 00:00: 00:00:00CBC Venipuncture (in house)lymph 1013-41-89E61:00:0023.3%15 - 50ReGrayson Crockerira 11/10/2024 03:12:10 PM >Triston Campos 11/11/2024 10:25:55 AM > Coding CBC Venipuncture (in house) 11/10/2024 00:00: 00:00:00CBC Venipuncture (in house)wbc 6674-91-96E09:00:007.73.5 - 10ReLizzette Laura 11/10/2024 03:12:10 PM >Triston Campos 11/11/2024 10:25:55 AM > Coding CBC Venipuncture (in house) 11/10/2024 00:00: 00:00:00Urinalysis - InhouseGluc 2536-96-61S00:00:00negChelsie Joseph 11/10/2024 03:48:56 PM > Provider reviewed results while patient in office.Triston Campos 11/11/2024 10:25:42 AM > Coding Urinalysis - Inhouse 11/10/2024 00:00: 00:00:00Urinalysis - InhouseBili 7619-25-42A49:00:00negChelsie Joseph 11/10/2024 03:48:56 PM > Provider reviewed results while patient in office.Triston Campos 11/11/2024 10:25:42 AM > Coding Urinalysis - Inhouse 11/10/2024 00:00: 00:00:00Urinalysis - InhouseKetone 6187-53-20C19:00:00negChelsie Joseph 11/10/2024 03:48:56 PM > Provider reviewed results while patient in office.Triston Campos 11/11/2024 10:25:42 AM > Coding Urinalysis - Inhouse 11/10/2024 00:00: 00:00:00Urinalysis - InhouseSp. Gr. 3543-90-59P62:00:001.020ReAmalia Chelsie 11/10/2024 03:48:56 PM > Provider reviewed results while patient in office.Triston Campos 11/11/2024 10:25:42 AM > Coding Urinalysis - Inhouse 11/10/2024 00:00: 00:00:00Urinalysis - InhouseBlood 7079-28-95H11:00:00negJake Chelsie 11/10/2024 03:48:56 PM > Provider reviewed results while patient in office.Triston Campos 11/11/2024 10:25:42 AM > Coding Urinalysis - Inhouse 11/10/2024 00:00: 00:00:00Urinalysis - NtmqgncbG0966-38-24D69:00:00 5.Amalia Chelsie 11/10/2024 03:48:56 PM > Provider reviewed results while patient in office.Triston Campos 11/11/2024 10:25:42 AM > Coding Urinalysis - Inhouse 11/10/2024 00:00: 00:00:00Urinalysis - InhouseProtein 7780-42-96H66:00:00Chelsie Ellis 11/10/2024 03:48:56 PM > Provider reviewed results while patient in office.Triston Campos 11/11/2024 10:25:42 AM > Coding Urinalysis - Inhouse 11/10/2024 00:00: 00:00:00Urinalysis - InhouseUrobili 2786-07-80F52:00:003.2RevieweNeena Chelsie 11/10/2024 03:48:56 PM > Provider reviewed results while patient in office.Triston Campos 11/11/2024 10:25:42 AM > Coding Urinalysis - Inhouse 11/10/2024 00:00: 00:00:00Urinalysis - InhouseNitrite 4254-13-37M61:00:00Chelsie Ellis 11/10/2024 03:48:56 PM > Provider reviewed results while patient in office.Triston Campos 11/11/2024 10:25:42 AM > Coding Urinalysis - Inhouse 11/10/2024 00:00: 00:00:00Urinalysis - InhouseLeuk 6158-35-79Q75:00:00traceRevieVanessaUniversity Hospitals [facility] 11/10/2024 03:48:56 PM > Provider reviewed results while patient in office.Triston Campos 11/11/2024 10:25:42 AM > Coding Urinalysis - Inhouse 11/10/2024 00:00: 00:00:00Urinalysis - InhouseColor/Clarity 2938-76-95G63:00:00yellowReAmalia [place] 11/10/2024 03:48:56 PM > Provider reviewed results while patient in office.Triston Campos 11/11/2024 10:25:42 AM > Coding Urinalysis - Inhouse 11/10/2024 00:00: 00:00:00CBC Fingerstick (in house)[facility] 7808-03-09L04:00:72703075 - 400ReAmaliaUniversity Hospitals Geauga Medical [facility] 11/17/2024 11:26:10 AM > Provider reviewed results while patient in office. Coding CBC Fingerstick (in house) 11/17/2024 00:00: 00:00:00CBC Fingerstick (in house)[facility] 1569-71-74W68:00:0033.331 - 38RevieweNeenaUniversity Hospitals Geaug[facility] 11/17/2024 11:26:10 AM > Provider reviewed results while patient in office. Coding CBC Fingerstick (in house) 11/17/2024 00:00: 00:00:00CBC Fingerstick (in house)[facility] 6194-56-09L66:00:0033.225 - 35ReviewedHbrianaUniversity Hospitals Geauga Medical Center 11/17/2024 11:26:10 AM > Provider reviewed results while patient in office. Coding CBC Fingerstick (in house) 11/17/2024 00:00: 00:00:00CBC Fingerstick (in house)mcv 2864-80-49E84:00:0099.675 - 100ReviewedHanetteKindred Hospital Lima 11/17/2024 11:26:10 AM > Provider reviewed results while patient in office. Coding CBC Fingerstick (in house) 11/17/2024 00:00: 00:00:00CBC Fingerstick (in house)hct 6356-36-03K96:00:0038.435 - 55ReviewedHouKindred Hospital Lima 11/17/2024 11:26:10 AM > Provider reviewed results while patient in office. Coding CBC Fingerstick (in house) 11/17/2024 00:00: 00:00:00CBC Fingerstick (in house)hgb 4829-43-59D03:00:0012.811.5 - 16.5ReviewedHanetteKindred Hospital [facility]ima 11/17/2024 11:26:10 AM > Provider reviewed results while patient in office. Coding CBC Fingerstick (in house) 11/17/2024 00:00: 00:00:00CBC Fingerstick (in house)[facility] 0933-15-43D43:00:003.863.5 - 5.5ReviewedHanetteKindred Hospital Lima 11/17/2024 11:26:10 AM > Provider reviewed results while patient in office. Coding CBC Fingerstick (in house) 11/17/2024 00:00: 00:00:00CBC Fingerstick (in house)[facility] 7303-82-87N19:00:0087.735 - 80ReviewedHanetteKindred Hospital [facility] 11/17/2024 11:26:10 AM > Provider reviewed results while patient in office. Coding CBC Fingerstick (in house) 11/17/2024 00:00: 00:00:00CBC Fingerstick (in house)[facility] 9820-63-95O46:00:002.92 - 15ReviewedHouKindred Hospital Lima 11/17/2024 11:26:10 AM > Provider reviewed results while patient in office. Coding CBC Fingerstick (in house) 11/17/2024 00:00: 00:00:00CBC Fingerstick (in house)lym 6581-79-48Z20:00:009.415 - 50RevieweNeena Chelsie 11/17/2024 11:26:10 AM > Provider reviewed results while patient in office. Coding CBC Fingerstick (in house) 11/17/2024 00:00: 00:00:00CBC Fingerstick (in house)wbc 2343-24-89O03:00:0012.73.5 - 10RevieweNeenaUniversity Hospitals [facility] 11/17/2024 11:26:10 AM > Provider reviewed results while patient in office. Coding CBC Fingerstick (in house) 11/17/2024 00:00: 00:00:00Influenza Screen (in house)results 8837-82-87B46:00:00negReAmaliaUniversity Hospitals Geauga Medical Center 11/17/2024 11:25:19 AM > Provider reviewed results while patient in office. Coding Influenza Screen (in house) 11/17/2024 00:00: 00:00:00Urinalysis - InhouseGluc 0591-88-38M24:00:00NegReMerry Wilson 11/17/2024 11:30:16 AM > Provider reviewed results while patient in office. Coding Urinalysis - Inhouse 11/17/2024 00:00: 00:00:00Urinalysis - InhouseBili 0661-66-33O61:00:00NegReMerry Wilson 11/17/2024 11:30:16 AM > Provider reviewed results while patient in office. Coding Urinalysis - Inhouse 11/17/2024 00:00: 00:00:00Urinalysis - InhouseKetone 9212-21-95N42:00:00NegMerry Schwartz 11/17/2024 11:30:16 AM > Provider reviewed results while patient in office. Coding Urinalysis - Inhouse 11/17/2024 00:00: 00:00:00Urinalysis - InhouseSp. Gr. 6619-05-45X22:00:001.015Merry Schwartz 11/17/2024 11:30:16 AM > Provider reviewed results while patient in office. Coding Urinalysis - Inhouse 11/17/2024 00:00: 00:00:00Urinalysis - InhouseBlood 3675-37-15C64:00:00Merry Williamson 11/17/2024 11:30:16 AM > Provider reviewed results while patient in office. Coding Urinalysis - Inhouse 11/17/2024 00:00: 00:00:00Urinalysis - JsyrulegS2413-71-05F82:00:00 5.5ReMerry Wilson 11/17/2024 11:30:16 AM > Provider reviewed results while patient in office. Coding Urinalysis - Inhouse 11/17/2024 00:00: 00:00:00Urinalysis - InhouseProtein 5635-42-12V14:00:00TraceRMerry Lambert 11/17/2024 11:30:16 AM > Provider reviewed results while patient in office. Coding Urinalysis - Inhouse 11/17/2024 00:00: 00:00:00Urinalysis - InhouseUrobili 4208-30-16W93:00:003.2RMerry Lambert 11/17/2024 11:30:16 AM > Provider reviewed results while patient in office. Coding Urinalysis - Inhouse 11/17/2024 00:00: 00:00:00Urinalysis - InhouseNitrite 3557-30-05M26:00:00Merry Williamson 11/17/2024 11:30:16 AM > Provider reviewed results while patient in office. Coding Urinalysis - Inhouse 11/17/2024 00:00: 00:00:00Urinalysis - InhouseLeuk 7384-48-66A87:00:00NegReSteve Merry Mccracken 11/17/2024 11:30:16 AM > Provider reviewed results while patient in office. Coding Urinalysis - Inhouse 11/17/2024 00:00: 00:00:00Urinalysis - InhouseColor/Clarity [id number]:00:00amber/clearReMerry Wilson 11/17/2024 11:30:16 AM > Provider reviewed results while patient in office. Coding Urinalysis - Inhouse 11/17/2024 00:00: 00:00:00P-Culture, UrineSpecimen Source [id number]:00:00Urine - Void-ReviewedMerry Castellanos 01/16/2025 01:35:28 PM EDT >Pt's daughter notified and states she will try toget another specimen dropped off to recheck Coding P-Culture, Urine 01/09/2025 00:00: 00:00:00P-Culture, UrineCulture, Urine [id number]:00:00See Cheryl-Merry Schwartz 01/16/2025 01:35:28 PM EDT >Pt's daughter notified and states she will try toget another specimen dropped off to recheck Coding P-Culture, Urine Coding Culture, Urine 01/09/2025 00:00: 00:00:00Urinalysis - InhouseGluc 5279-53-61K72:00:00NegMerry Schwartz 01/09/2025 02:01:09 PM EDT >Triston Campos T 01/09/2025 07:34:46 PM EDT > culture ordered. Coding Urinalysis - Inhouse 01/09/2025 00:00: 00:00:00Urinalysis - InhouseBili 5599-62-46I06:00:00NegReMerry Wilson 01/09/2025 02:01:09 PM EDT >MacedonTriston kiser T 01/09/2025 07:34:46 PM EDT > culture ordered. Coding Urinalysis - Inhouse 01/09/2025 00:00: 00:00:00Urinalysis - InhouseKetone 9658-41-62N69:00:00NegReMerry Wilson 01/09/2025 02:01:09 PM EDT >MacedonTriston T 01/09/2025 07:34:46 PM EDT > culture ordered. Coding Urinalysis - Inhouse 01/09/2025 00:00: 00:00:00Urinalysis - InhouseSp. Gr. 4949-26-35E23:00:001.020ReMerry Wilsno 01/09/2025 02:01:09 PM EDT >Macedon, Triston T 01/09/2025 07:34:46 PM EDT > culture ordered. Coding Urinalysis - Inhouse 01/09/2025 00:00: 00:00:00Urinalysis - InhouseBlood 5488-50-07M46:00:00NegReMerry Wilson 01/09/2025 02:01:09 PM EDT >Beth Triston T 01/09/2025 07:34:46 PM EDT > culture ordered. Coding Urinalysis - Inhouse 01/09/2025 00:00: 00:00:00Urinalysis - VijuwkwyO0632-59-52G94:00:00 5.5RevieweMerry Casillas 01/09/2025 02:01:09 PM EDT >Beth Triston T 01/09/2025 07:34:46 PM EDT > culture ordered. Coding Urinalysis - Inhouse 01/09/2025 00:00: 00:00:00Urinalysis - InhouseProtein 7781-97-56X32:00:00NegEfrenMerry Nawaf 01/09/2025 02:01:09 PM EDT >Triston Campos T 01/09/2025 07:34:46 PM EDT > culture ordered. Coding Urinalysis - Inhouse 01/09/2025 00:00: 00:00:00Urinalysis - InhouseUrobili 7202-39-72O73:00:003.2RevieMarquisMerry Nawaf 01/09/2025 02:01:09 PM EDT >Triston Campos T 01/09/2025 07:34:46 PM EDT > culture ordered. Coding Urinalysis - Inhouse 01/09/2025 00:00: 00:00:00Urinalysis - InhouseNitrite 0352-69-82P36:00:00NegReMerry Wilson 01/09/2025 02:01:09 PM EDT >Triston Campos T 01/09/2025 07:34:46 PM EDT > culture ordered. Coding Urinalysis - Inhouse 01/09/2025 00:00: 00:00:00Urinalysis - InhouseLeuk 8869-63-77C60:00:00NegEfrenMerry Nawaf 01/09/2025 02:01:09 PM EDT >Triston Campos T 01/09/2025 07:34:46 PM EDT > culture ordered. Coding Urinalysis - Inhouse 01/09/2025 00:00: 00:00:00Urinalysis - InhouseColor/Clarity 4714-92-32W30:00:00yellow/clearReSteveXimenajustyn Mccracken 01/09/2025 02:01:09 PM EDT >Triston Campos T 01/09/2025 07:34:46 PM EDT > culture ordered. Coding Urinalysis - Inhouse 01/09/2025 00:00: 00:00:00Urinalysis - InhouseGluc 3678-61-19T69:00:00NegRevieweSaad Laura 01/17/2025 08:43:47 AM EDT >Triston Campos T 01/17/2025 06:16:18 PM EDT > Urine PCR panel ordered. Coding Urinalysis - Inhouse 01/17/2025 00:00: 00:00:00Urinalysis - InhouseBili 7450-97-22W16:00:00NegReviewedKammon, [facility] 01/17/2025 08:43:47 AM EDT >Triston Campos T 01/17/2025 06:16:18 PM EDT > Urine PCR panel ordered. Coding Urinalysis - Inhouse 01/17/2025 00:00: 00:00:00Urinalysis - InhouseKetone 1749-26-52V62:00:00NegRevieweSaad [facility] 01/17/2025 08:43:47 AM EDT >Triston Campos T 01/17/2025 06:16:18 PM EDT > Urine PCR panel ordered. Coding Urinalysis - Inhouse 01/17/2025 00:00: 00:00:00Urinalysis - InhouseSp. Gr. 4889-00-81Q87:00:001.020RevieweSaad [facility] 01/17/2025 08:43:47 AM EDT >Triston Campos T 01/17/2025 06:16:18 PM EDT > Urine PCR panel ordered. Coding Urinalysis - Inhouse 01/17/2025 00:00: 00:00:00Urinalysis - InhouseBlood 1319-99-10Q88:00:00NegRevieweSaad [facility] 01/17/2025 08:43:47 AM EDT >Triston Campos T 01/17/2025 06:16:18 PM EDT > Urine PCR panel ordered. Coding Urinalysis - Inhouse 01/17/2025 00:00: 00:00:00Urinalysis - KaskioppR8460-21-43A36:00:00 5.5RevieweSherlyammon Laura 01/17/2025 08:43:47 AM EDT >Triston Campos T 01/17/2025 06:16:18 PM EDT > Urine PCR panel ordered. Coding Urinalysis - Inhouse 01/17/2025 00:00: 00:00:00Urinalysis - InhouseProtein 6868-55-51U58:00:00NegRevieweSherlyammon Laura 01/17/2025 08:43:47 AM EDT >Triston Campos T 01/17/2025 06:16:18 PM EDT > Urine PCR panel ordered. Coding Urinalysis - Inhouse 01/17/2025 00:00: 00:00:00Urinalysis - InhouseUrobili 7630-07-32E66:00:003.2RevieAdy [facility] 01/17/2025 08:43:47 AM EDT >Triston Campos T 01/17/2025 06:16:18 PM EDT > Urine PCR panel ordered. Coding Urinalysis - Inhouse 01/17/2025 00:00: 00:00:00Urinalysis - InhouseNitrite 1247-88-75I98:00:00NegRevandaSaad Laura 01/17/2025 08:43:47 AM EDT >Triston Campos T 01/17/2025 06:16:18 PM EDT > Urine PCR panel ordered. Coding Urinalysis - Inhouse 01/17/2025 00:00: 00:00:00Urinalysis - InhouseLeuk 7260-09-18R86:00:00TraceRevieAdy Laura 01/17/2025 08:43:47 AM EDT >Triston Campos T 01/17/2025 06:16:18 PM EDT > Urine PCR panel ordered. Coding Urinalysis - Inhouse 01/17/2025 00:00: 00:00:00Urinalysis - InhouseColor/Clarity 2017-67-52W26:00:00Yellow/ClearReviewedKing, [facility] 01/17/2025 08:43:47 AM EDT >Triston Campos 01/17/2025 06:16:18 PM EDT > Urine PCR panel ordered. Coding Urinalysis - Inhouse 01/17/2025 00:00:00001/19/2025 00:00:00TEN-UTI ttxqe8239-05-59O67:00:00Negative ReviewedGoble, Erica 01/19/2025 08:35:15 AM EDT > pt informed of results Coding TEN-UTI panel 01/19/2025 00:00:00002/02/2025 00:00:00P-Culture, UrineSpecimen Source [id number]:00:00Urine - Void-ReviewedKing, [facility] 02/05/2025 05:53:19 PM EDT > Pt's daughter informed Coding P-Culture, Urine 02/02/2025 00:00: 00:00:00P-Culture, UrineCulture, Urine 4108-63-25G46:00:00See Below-ReviewedKing, [facility] 02/05/2025 05:53:19 PM EDT > Pt's daughter informed Coding P-Culture, Urine Coding Culture, Urine 02/02/2025 00:00: 00:00:00CBC Fingerstick (in house)[facility] 8967-25-51D56:00:09763741 - 400RevieweSaad [facility] 02/02/2025 03:14:46 PM EDT > Provider reviewed results while patient in office.Triston Campos 02/02/2025 09:36:56 PM EDT > Coding CBC Fingerstick (in house) 02/02/2025 00:00: 00:00:00CBC Fingerstick (in house)[facility] 4692-68-81H32:00:0033.831 - 38RevieweGrayson Nashira 02/02/2025 03:14:46 PM EDT > Provider reviewed results while patient in office.Triston Campos 02/02/2025 09:36:56 PM EDT > Coding CBC Fingerstick (in house) 02/02/2025 00:00:00002/02/2025 00:00:00CBC Fingerstick (in house)mch 6834-10-27J93:00:0032.625 - 35RevieweLaura Nash 02/02/2025 03:14:46 PM EDT > Provider reviewed results while patient in office.Triston Campos 02/02/2025 09:36:56 PM EDT > Coding CBC Fingerstick (in house) 02/02/2025 00:00:00002/02/2025 00:00:00CBC Fingerstick (in house)mcv 2582-28-99Z95:00:0096.375 - 100ReLaura Crocker 02/02/2025 03:14:46 PM EDT > Provider reviewed results while patient in office.Triston Campos 02/02/2025 09:36:56 PM EDT > Coding CBC Fingerstick (in house) 02/02/2025 00:00: 00:00:00CBC Fingerstick (in house)hct 3935-92-07F49:00:0039.735 - 55RevieweLaura Nash 02/02/2025 03:14:46 PM EDT > Provider reviewed results while patient in office.Triston Campos 02/02/2025 09:36:56 PM EDT > Coding CBC Fingerstick (in house) 02/02/2025 00:00:00002/02/2025 00:00:00CBC Fingerstick (in house)hgb 3100-61-38R45:00:0013.411.5 - 16.5ReviewedKLaura verde 02/02/2025 03:14:46 PM EDT > Provider reviewed results while patient in office.Triston Campos 02/02/2025 09:36:56 PM EDT > Coding CBC Fingerstick (in house) 02/02/2025 00:00:00002/02/2025 00:00:00CBC Fingerstick (in house)rbc 8668-18-49T95:00:004.123.5 - 5.5ReviewedKing, [facility] 02/02/2025 03:14:46 PM EDT > Provider reviewed results while patient in office.Triston Campos 02/02/2025 09:36:56 PM EDT > Coding CBC Fingerstick (in house) 02/02/2025 00:00:00002/02/2025 00:00:00CBC Fingerstick (in house)gran 9703-22-37E41:00:0068.8%35 - 80ReviewedKing, [facility] 02/02/2025 03:14:46 PM EDT > Provider reviewed results while patient in office.Triston Campos T 02/02/2025 09:36:56 PM EDT > Coding CBC Fingerstick (in house) 02/02/2025 00:00:00002/02/2025 00:00:00CBC Fingerstick (in house)mid 1490-71-59G83:00:006.0%2 - 15ReviewedKing, [facility] 02/02/2025 03:14:46 PM EDT > Provider reviewed results while patient in office.Triston Campos 02/02/2025 09:36:56 PM EDT > Coding CBC Fingerstick (in house) 02/02/2025 00:00: 00:00:00CBC Fingerstick (in house)lym 4440-06-76R55:00:0025.2%15 - 50ReviewedKing, [facility] 02/02/2025 03:14:46 PM EDT > Provider reviewed results while patient in office.Triston Campos 02/02/2025 09:36:56 PM EDT > Coding CBC Fingerstick (in house) 02/02/2025 00:00:00002/02/2025 00:00:00CBC Fingerstick (in house)wbc 7012-27-22Z21:00:008.83.5 - 10ReviewedKing, [facility] 02/02/2025 03:14:46 PM EDT > Provider reviewed results while patient in office.Triston Campos 02/02/2025 09:36:56 PM EDT > Coding CBC Fingerstick (in house) 02/02/2025 00:00:00002/02/2025 00:00:00Urinalysis - InhouseGluc 6791-91-54C58:00:00NegReLaura Crocker 02/02/2025 03:13:49 PM EDT > Provider reviewed results while patient in office.Triston Campos 02/02/2025 09:37:10 PM EDT > Coding Urinalysis - Inhouse 02/02/2025 00:00: 00:00:00Urinalysis - InhouseBili 8334-33-87O71:00:00NegLaura Barbosa 02/02/2025 03:13:49 PM EDT > Provider reviewed results while patient in office.Triston Campos 02/02/2025 09:37:10 PM EDT > Coding Urinalysis - Inhouse 02/02/2025 00:00: 00:00:00Urinalysis - InhouseKetone 6025-67-01G08:00:00NegReLaura Crocker 02/02/2025 03:13:49 PM EDT > Provider reviewed results while patient in office.Triston Campos 02/02/2025 09:37:10 PM EDT > Coding Urinalysis - Inhouse 02/02/2025 00:00: 00:00:00Urinalysis - InhouseSp. Gr. 3818-38-75J36:00:001.020ReLaura Crocker 02/02/2025 03:13:49 PM EDT > Provider reviewed results while patient in office.Triston Campos 02/02/2025 09:37:10 PM EDT > Coding Urinalysis - Inhouse 02/02/2025 00:00: 00:00:00Urinalysis - InhouseBlood 7404-30-09G48:00:00NegLaura Barbosa 02/02/2025 03:13:49 PM EDT > Provider reviewed results while patient in office.Triston Campos 02/02/2025 09:37:10 PM EDT > Coding Urinalysis - Inhouse 02/02/2025 00:00: 00:00:00Urinalysis - TjgrysyrD6285-11-91A06:00:00 5.5ReLaura Crocker 02/02/2025 03:13:49 PM EDT > Provider reviewed results while patient in office.Triston Campos 02/02/2025 09:37:10 PM EDT > Coding Urinalysis - Inhouse 02/02/2025 00:00: 00:00:00Urinalysis - InhouseProtein 0367-56-81P03:00:00NegLaura Barbosa 02/02/2025 03:13:49 PM EDT > Provider reviewed results while patient in office.Triston Campos 02/02/2025 09:37:10 PM EDT > Coding Urinalysis - Inhouse 02/02/2025 00:00: 00:00:00Urinalysis - InhouseUrobili 8091-59-00M19:00:003.2RevLaura Kim 02/02/2025 03:13:49 PM EDT > Provider reviewed results while patient in office.Triston aCmpos 02/02/2025 09:37:10 PM EDT > Coding Urinalysis - Inhouse 02/02/2025 00:00: 00:00:00Urinalysis - InhouseNitrite 9524-43-68Y82:00:00NegLaura Barbosa 02/02/2025 03:13:49 PM EDT > Provider reviewed results while patient in office.Triston Campos 02/02/2025 09:37:10 PM EDT > Coding Urinalysis - Inhouse 02/02/2025 00:00: 00:00:00Urinalysis - InhouseLeuk 4625-25-12S54:00:00TraceRLaura Garrett 02/02/2025 03:13:49 PM EDT > Provider reviewed results while patient in office.Triston Campos 02/02/2025 09:37:10 PM EDT > Coding Urinalysis - Inhouse 02/02/2025 00:00:00002/02/2025 00:00:00Urinalysis - InhouseColor/Clarity 6748-20-10L29:00:00Doug/Laura Walker 02/02/2025 03:13:49 PM EDT > Provider reviewed results while patient in office.Triston Campos 02/02/2025 09:37:10 PM EDT > Coding Urinalysis - Inhouse 02/02/2025 00:00:00
--- OUTSIDE RECORDS SUMMARY | 2025-02-28 12:51 | XMS_ITS | Encounter Summary ---
Author Organization Healthcare Address [address] [place] [address] Care Team Providers Care Mortgage Loan Funder Name Role Phone Triston Campos MD Primary Care Provider + [phone] Encounter Details Date Type Department Care Team (Late st Contact Info) Description 12/12/2024 Results Follow-Up [facility] Urology [address], [address] [place] [address] NoJudie thrasher M, GUIDE TOUR [address] [place] [address] Social History Tobacco Use Types [...] place to sleep or slept in a mcc (including now)? No 02/21/2024 AUDIT-C Answer Date [...] Info) Description 06/14/2025 8:30 AM EST Appointment [facility] Ultrasound [address] [place] [id number] 06/14/2025 10:30 AM EST Office Visit Medical Office Building Urology [address] [facility], [address] [place] [address] Noomen, Judie M, GUIDE TOUR [address] [place] [address] documented as of this encounter Visit Diagnoses Not on filedocumented in this encounter Additional Health Concerns Infection Onset Date Last Indicated Resolved Time MRSA Comment:Added from external infection. Source: [facility]. 09/03/2015 02/18/2024 Assessment Noted Time A fall risk assessment has been complete d for the patient 12/07/2024 10:09 AM EDT A Body Mass Index follow-up plan has been documented for the patient 12/07/2024 10:32 AM EDT documented as of this encounter Care Teams Mortgage Loan Funder Relationship Specialty Start Date End Date Triston Campos MD [address] [address] PCP - General 11/15/20 documented as of this encounter
--- OUTSIDE RECORDS SUMMARY | 2025-02-28 12:51 | XMS_ITS | Clinical Summary ---
Author Organization [facility] Address [address] [place] [address] Care Team Providers Care Automobile Service Writer Name Role Phone Triston Campos MD Primary Care Provider + [phone] Allergies Active Allergy Reactions Criticality Noted Date [...] Department Care Team Description 12/12/2024 Results Follow-Up [facility] Urology [address] [place] [id number] Judie Borrero APRN 12/07/2024 11:10 AM EDT Office Visit Medical Office Building Urology [address] [facility], [address] [place] [address] Judie Borrero, REPACKER History of kidney stones (Primary Dx) 12/07/2024 9:06 AM EDT - 12/07/2024 11:59 PM EDT Hospital Encounter [facility] [address] [place] [address] History of kidney stones Discharge [...] and Family Not on file 02/21/2024 Attends [employer] Not on file 02/20 Active Member [...] place to sleep or slept in a chcf (including now)? No 02/21/2024 AUDIT-C Answer Date [...] Info) Description 06/14/2025 8:30 AM EST Appointment [facility] Ultrasound [address] [place] [address] 06/14/2025 10:30 AM EST Office Visit Medical Office Building Urology [address] [facility], [address] [place] [address] Noomen, Judie M, REPACKER [address] [place] [address] Health Maintenance Due Date Last Done Comments [facility]-Bone Density Scan 1938 [facility]-Medicare Annual Wellness (AWV) 1938 [facility]-Infant/Child/Adol SDOH Screenings 1938 [facility]- SDOH Screenings 1956 [facility]-Adult SDOH Screenings 1956 [facility]-DTaP,Tdap,and Td Vaccines (1 - Tdap) 1957 [facility]-Zoster Vaccines (1 of 2) 1988 [facility]-RSV Vaccine: 60+ Years or (1 - 1-dose 75+ series) 2013 [facility]-YPRCO-90 Vaccine ( - season) 2024 05/09/2021, 09/11/2020, [...] this topic Medical Devices Implanted Type Area Surveyor Chain Helper Device Identifier Shelf Expiration Date Model / Serial / Lot Stent Ureteral Double Pigtail Pos 6fr 22cm - [id number] - [id number] Implanted:Qty: 1 on 02/18/2024 by Maru Persaud MD at [facility] [id number] 05/19/2025 [id number] / [id number] / Stent Ureteral Double Pigtail Pos 5fr 22cm - [id number] Implanted:Qty: 1 on 03/07/2024 by Maru Persaud MD at [facility] [id number] 09/01/2026 [id number] / / [id number] Procedures Procedure Name Priority Date/Time Associated Diagnosis [...] 12/07/2024 12:02 PM us Judie Calderón [employer] REPACKER IMG CT PROCEDURES Final Res ult from Last 3 Months Additional Health Concerns Infection Onset Date 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 Source: [facility]. 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 She states that she is power of securities attorney over her mother's medical decision making. 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 Therefore, daughter states her wishes would be to be designated as Full Code. Question Answer Comments Patient has decision-making capacity? No Healthcare Surrogate: Adult child of the patient Name of Healthcare Surrogate: Lila Go Care Teams Automobile Service Writer Relationship Specialty Start Date End Date Triston Campos MD [address] [place] [address] PCP - General 11/15/20
== END 2025-02-27 23:59 | disposition home or self-care (01) ==
LOC: SC.PAIN 14:20 → SC.PAINP 02-28 12:47
PROVIDERS: PCP Family Medicine; Visit Provider Nurse Anesthetist, Certified Registered
DX: M17.11 Unilateral primary osteoarthritis, right knee (principal); M46.1 Sacroiliitis, not elsewhere classified
CPT/HCPCS: 99212; G0463

== ENCOUNTER 2025-03-21 15:13 | Outpatient (CLI) | payer MEDICARE, MEDICAID, SELFPAY ==
--- OUTSIDE RECORDS SUMMARY | 2025-02-02 11:00 | XMS_ITS ---
Author Organization [facility] Address [address] [facility] [address] [place] [id number] Care Team Providers Care Parole Or Probation Officer Name Role Phone Triston Campos Primary Care Provider [phone] Allergies Allergen (clinical drug ingredient) Drug/Non Drug [...] growth Performing Lab: Notes/Report: Test performed by [facility] , [address], [place] [address] Adrian Gilbert MD, Instructor Physical Education CLIA: [id number] Specimen Source Urine - Void Culture, Urine [...] 02/02/2025 Encounters Encounter Location Date Provider Diagnosis [facility] [address] [facility] [address] [place], [place] [id number] 02/02/2025 Triston [place] Nausea R11.0 and Pyuria R82.81 Assessments Encounter [...] Notes * Maura CARRERODOB:1940 (84 yo F)Acc No.[id number]:02/02/2025 Progress Notes Patient: Maura SHULTZ Provider: Briana Campos M.D. :1940 A ge:84 Y S ex:Female Date:02/02/2025 Address:[facility] [address], [place], [id number] Subjective: * Chief Complaints: * 1 . [...] G 2211 Complex e/[place], [address] CBC WITH AUTO DIFF, 59864 CAPILLARY BLOOD DRAW, 76840 Urinalysis, no micro, 1036F TOBACCO NON-USER, G8752 MOST RECENT SYSTOLIC BP < 140MM HG, G8754 MOST RECENT DIASTOLIC BP < 90MM HG, G8783 BP SCR PRFRM RCMDD DEFIND SCR INTVL * Follow Up: v ia phone to report progress * Images: Billing Information: * Visit Code: 85202 Office Visit, Est Pt., Level 3. * Procedure Codes: G2211 Complex e/[place]. [address] CBC WITH AUTO DIFF. 47612 CAPILLARY BLOOD DRAW. 31906 Urinalysis, no micro. 1036F TOBACCO NON-USER. G8752 MOST RECENT SYSTOLIC BP < 140MM HG. G8754 MOST RECENT DIASTOLIC BP < 90MM HG. G8783 BP SCR PRFRM RCMDD DEFIND SCR INTVL. * Electronic signature of Fidelia Campos MD on 03/21/2025 at 03:16 PM EDT Sign off status: Pending * Provider: Briana Campos M.D. Date: 0 02/02/2025 Generated for [facility]/eTransmitting on: 0 03/21/2025 03:16 PM EDT History and Physical Notes * [...]
--- OUTSIDE RECORDS SUMMARY | 2025-02-16 07:30 | XMS_ITS ---
[facility] Address [address] [facility] [address] [place] [id number] Care Team Providers Care Truck Greaser Name Role Phone Triston Campos Primary Care Provider Allergies Allergen (clinical drug ingredient) Drug/Non Drug Allergy documented on EMR Reaction Allergy Type Onset Date Status codeine Codeine numbness Drug Allergy Active REASON FOR VISIT nauseous Medications Medication SIG (Take, Route, Frequency, Duration) Notes Start Date End Date Status Donepezil HCl 5 mg TAKE ONE TABLET BY M OUTH EVERY DAY AT BEDTIME; Duration: 90 Active Esomeprazole Magnesium 40 mg TAKE ONE CA PSULE BY MOUTH EVERY DAY; Duration: 90 Active oxyCODONE HCl 10 MG 1 tab(s) orally 2 ti mes a day; Duration: 30 days 01/23/2025 Active Memantine HCl 5 mg 1 tablet orally twic e a day; Duration: 90 days Active Ondansetron HCl 4 MG 1 tablet Orally 3 t imes a day Active Celecoxib 100 mg 1 capsule Orally Onc e a day; Duration: 90 days Active DULoxetine HCl 60 mg 1 capsule orally on ce a day; Duration: 30 days Active Levothyroxine Sodium 25 MCG 1 tab(s) ora lly once a day; Duration: 90 days Active Myrbetriq 50 mg 1 tablet Orally Once a day; Duration: 90 days Active Furosemide 20 mg 1 tablet Orally Once a day; Duration: 90 days Active hydrOXYzine HCl 25 MG 1 tablet as needed Orally Two times a day 11/15/2024 Active LORazepam 1 MG 1 tab(s) orally 2 ti mes a day; Duration: 30 day(s) 11/20/2024 Active Trulance 3 mg TAKE ONE TABLET BY M OUTH EVERY DAY; Duration: 90 Active Alendronate Sodium 70 mg 1 tablet by izabel th once weekly; Duration: 84 days Active Meclizine HCl 25 MG 1 tablet as needed Orally every 12 hrs; Duration: 90 days Active Irbesartan-hydroCHLOROthiazi de 300-12.5 MG TAKE ONE TABLET BY MOUTH EVERY DAY; Duration: 90 Active Lactulose 10 GM/15ML TAKE 15ML BY MOUTH ONCE DAILY NEEDED; Duration: 30 Active Gabapentin 300 MG 2 capsules orally 2 times daily 07/28/2024 Active Docusate Sodium 250 mg TAKE ONE CAPSULE BY MOUTH TWICE DAILY NEEDED; Duration: 30 Active Briviact 75 MG 1 tab(s) orally Twic e a day; Duration: 90 days 10/18/2024 Active MiraLax 17 GM/SCOOP 1 scoop mixed with 8 ounces of fluid Orally Once a day 06/29/2024 Active Lumbar Back Brace/Support Pad - as directed 12/11/2022 Active Triamcinolone Acetonide 0.1 % 1 application Externally Twice a day 02/24/2024 Active Diclofenac Sodium 1 % 4 grams Externally four times a day as needed 03/28/2024 Active Azelastine HCl 137 MCG/SPRAY 2 puffs (1 spray in each nostril) Nasally Twice a day 06/29/2024 Active Lactase - as directed Active Vitamin [...] q2h prn; Duration: 30 days 04/14/2022 Active Commode Bedside - as directed Active Walker - as directed Active Tamsulosin HCl 0.4 MG 1 capsule Orally O nce a day; Duration: 30 day(s) Active Phenazopyridine HCl 200 MG 1 tablet afte r meals Orally Three times a day; Duration: 2 day(s) Active Wheelchair - as directed Activ e Voquezna 20 MG 1 tablet Orally Once a day; Duration: 30 day(s) 02/16/2025 Active Vital Signs Weight 176.2 lbs 02/16/2025 Blood pressure systolic 126 mm Hg 02/17/20 25 Blood pressure diastolic 70 mm Hg 025 Heart Rate 92 /min 02/16/2025 Height 62 in 02/16/2025 BMI 32.22 kg/m2 02/16/2025 Encounters Encounter Location Date Provider Diagnosis [facility] [address] [place], [place] [id number] 02/16/2025 Triston Campos Dyspepsia R10.13 Assessments Encounter Date Diagnosis (ICD Code) Assessment Notes Treatment Notes Treatment Clinical Notes Section Notes 02/16/2025 Dyspepsia (ICD-10 - R10.13) Plan Of Treatment Medication Medication Name Sig Start Date Stop Date Notes Voquezna 20 MG 1 tablet Orally Once a day; Duration: 30 day(s) 02/16/2025 Next Appt Details Follow Up: via phone to repo rt progress, Reason: Progress Notes * Maura CARRERODOB:1940 (84 yo F)Acc No.[id number]:02/16/2025 Progress Notes Patient: Maura SHULTZ Provider: Briana Campos M.D. :1940 A ge:84 Y S ex:Female Date:02/16/2025 Address:[facility] [place] [place], [id number] Subjective: * Chief Complaints: * 1 . Nauseous. * HPI: G astroenterology: 84 year old female presents with c/o Abdominal Pain P t's daughter states that pt started complaining of lt lower abdominal pain 2-3 days ago. c/o Nausea Pt's daughter states that pt has continued with nausea and decreased appetite. Pt states she has been sick to her stomach since her last ov on 02/02. Pt's daughter states that pt has not been taking her medication as prescribed because of the nausea. * ROS: D ERMATOLOGY: no R tasha. n o H rica. G ASTROENTEROLOGY: no N ausea. n o V omiting. U ROLOGY: no D ifficulty urinating. n [...] 1 tablet orally twice a day , Taking Ondansetron HCl 4 MG Tablet 1 tablet Orally 3 times a day , Medication List reviewed and reconciled with the patient * Allergies: C odeine: numbness. Objective: * Vitals: W t: 176.2, Temp: 98.1, BP: 126/70, HR: 92, Nurse: karen, Ht: 62, BMI:32.22. * Examination: G eneral Examination: General Appearance: N AD, sitting in a wheel chair, conversant. H eart: R SR. A bdomen: b owel sounds present, soft and nontender, no guarding or rigidity. Assessment: * Assessment: 1. D yspepsia - R10.13 (Primary) Plan: * Treatment: * Procedure Codes: G 2211 Complex e/m visit add on * Follow Up: v ia phone to report progress * Images: Billing Information: * Visit Code: 68403 Office Visit, Est Pt., Level 3. * Procedure Codes: G2211 Complex e/m visit add on. * Electronic signature of Fidelia Campos MD on 03/21/2025 at 03:16 PM EDT Sign off status: Pending * Provider: Briana Campos M.D. Date: 0 02/16/2025 Generated for [facility] paredes/Hern[facility]/Kimberransmitting on: 0 03/21/2025 03:16 PM EDT History and Physical Notes * HPI (History of Present Illness) Category Sub-Category Detail Notes Category Not es Gastroenterology Abdominal Pain Pt's daughter s tates that pt started complaining of lt lower abdominal pain 2-3 days ago Nausea Pt's daughter states that pt has continued with nausea and decreased appetite. Pt states she has been sick to her stomach since her last ov on 02/02. Pt's daughter states that pt has not been taking her medication as prescribed because of the nausea Examination Category Sub-Category Detail Notes Category Not es General Examination Heart: RSR Abdomen: bowel sounds present , soft and nontender, no guarding or rigidity General Appearance: NAD, sitting in a wh eel chair, conversant
--- OUTSIDE RECORDS SUMMARY | 2025-03-14 07:30 | XMS_ITS ---
[facility] [address] [place] [id number] Care Team Providers Care Demurrage Man Name Role Phone Triston Campos Primary Care Provider Allergies Allergen (clinical drug ingredient) Drug/Non Drug Allergy documented on EMR Reaction Allergy Type Onset Date Status codeine Codeine numbness Drug Allergy Active REASON FOR VISIT poss.UTI Medications Medication SIG (Take, Route, Frequency, Duration) Notes Start Date End Date Status Voquezna 20 MG 1 tablet Orally Once a day; Duration: 30 days 02/16/2025 Unknown DULoxetine HCl 60 mg TAKE ONE CAPSULE BY MOUTH EVERY DAY; Duration: 30 Unknown LORazepam 1 MG 1 tab(s) orally 2 ti mes a day; Duration: 30 day(s) 02/19/2025 Unknown Memantine HCl 5 mg 1 tablet orally twic e a day; Duration: 90 days Unknown Ondansetron HCl 4 MG 1 tablet Orally 3 t imes a day Unknown Esomeprazole Magnesium 40 mg TAKE ONE CA PSULE BY MOUTH EVERY DAY; Duration: 90 Unknown oxyCODONE HCl 10 MG 1 tab(s) orally 2 ti mes a day; Duration: 30 days 01/23/2025 Unknown Celecoxib 100 mg 1 capsule Orally Onc e a day; Duration: 90 days Unknown Donepezil HCl 5 mg TAKE ONE TABLET BY MOUTH EVERY DAY AT BEDTIME; Duration: 90 Unknown Furosemide 20 mg 1 tablet Orally Once a day; Duration: 90 days Unknown Myrbetriq 50 mg 1 tablet Orally Once a day; Duration: 90 days Unknown Alendronate Sodium 70 mg 1 tablet by [facility] once weekly; Duration: 84 days Unknown Levothyroxine Sodium 25 MCG 1 tab(s) ora lly once a day; Duration: 90 days Unknown Trulance 3 mg TAKE ONE TABLET BY MOUTH EVERY DAY; Duration: 90 Unknown Meclizine HCl 25 MG 1 tablet as needed Orally every 12 hrs; Duration: 90 days Unknown Irbesartan-hydroCHLOROthiazi de 300-12.5 MG TAKE ONE TABLET BY MOUTH EVERY DAY; Duration: 90 Unknown Lactulose 10 GM/15ML TAKE 15ML BY MOUTH ONCE DAILY NEEDED; Duration: 30 Unknown Docusate Sodium 250 mg TAKE ONE CAPSULE BY MOUTH TWICE DAILY NEEDED; Duration: 30 Unknown Briviact 75 MG 1 tab(s) orally Twic e a day; Duration: 90 days 10/18/2024 Unknown hydrOXYzine HCl 25 MG 1 tablet as needed Orally Two times a day 11/15/2024 Unknown MiraLax 17 GM/SCOOP 1 scoop mixed with 8 ounces of fluid Orally Once a day 06/29/2024 Unknown Gabapentin 300 MG 2 capsules orally 2 times daily 07/28/2024 Unknown Azelastine HCl 137 MCG/SPRAY 2 puffs (1 spray in each nostril) Nasally Twice a day 06/29/2024 Unknown Triamcinolone Acetonide 0.1 % 1 application Externally Twice a day 02/24/2024 Unknown Diclofenac Sodium 1 % 4 grams Externally four times a day as needed 03/28/2024 Unknown tiZANidine HCl 2 MG 1 tab(s) orally ever y 8 hours as needed Unknown Vitamin B 12 500 MCG 1 tab(s) orally onc e a day 03/06/2020 Unknown Vitamin D3 50 MCG (2000 UT) 1 tab(s) ora lly twice a day Unknown Albuterol Sulfate HFA 108 (90 Base) MCG/ACT 2 puff(s) inhaled qid and q2h prn; Duration: 30 days 04/14/2022 Unknown Lumbar Back Brace/Support Pad - as directed 12/11/2022 Unknown Lactase - as directed Unknown Commode Bedside - as directed Unknown Walker - as directed Unknown Wheelchair - as directed Unkno wn Phenazopyridine HCl 200 MG 1 tablet afte r meals Orally Three times a day; Duration: 2 day(s) Unknown Tamsulosin HCl 0.4 MG 1 capsule Orally O nce a day; Duration: 30 day(s) Unknown Encounters Encounter Location Date Provider Diagnosis [facility] [address] [place] [phone] 03/14/2025 Triston Campos Plan Of Treatment No Information Progress Notes * Maura CARRERODOB:1940 (84 yo F)Acc No.[id number]:03/14/2025 Progress Notes Patient: Maura SHULTZ Provider: Briana Campos M.D. :1940 A ge:84 Y S ex:Female Date:03/14/2025 Address:[facility] [address], [id number] Subjective: * Chief Complaints: * 1 . poss.UTI. * HPI: U rology: 84 year old female presents with c/o frequent urination. * ROS: D ERMATOLOGY: no R tasha. [...] years ago. Sexually active: no.. * Medications: U nknown Tamsulosin HCl 0.4 MG Capsule 1 capsule Orally Once a day , Unknown Phenazopyridine HCl 200 MG Tablet 1 tablet after meals Orally Three times a day , Unknown Wheelchair - Miscellaneous as directed , Unknown Commode Bedside - Miscellaneous as directed , Unknown Walker - Miscellaneous as directed , Unknown Lactase - Powder as directed , Unknown Vitamin D3 50 MCG (2000 UT) Tablet 1 tab(s) orally twice a day , Unknown tiZANidine HCl 2 MG Tablet 1 tab(s) orally every 8 hours as needed , Unknown Vitamin B 12 500 MCG Tablet 1 tab(s) orally once a day , Unknown Albuterol Sulfate HFA 108 (90 Base) MCG/ACT Aerosol Solution 2 puff(s) inhaled qid and q2h prn , Unknown Lumbar Back Brace/Support Pad - Miscellaneous as directed , Unknown Triamcinolone Acetonide 0.1 % Cream 1 application Externally Twice a day , Unknown Diclofenac Sodium 1 % Gel 4 grams Externally four times a day as needed , Unknown Azelastine HCl 137 MCG/SPRAY Solution 2 puffs (1 spray in each nostril) Nasally Twice a day , Unknown MiraLax 17 GM/SCOOP Powder 1 scoop mixed with 8 ounces of fluid Orally Once a day , Unknown Gabapentin 300 MG Capsule 2 capsules orally 2 times daily , Unknown Docusate Sodium 250 mg Capsule TAKE ONE CAPSULE BY MOUTH TWICE DAILY NEEDED , Unknown Briviact 75 MG Tablet 1 tab(s) orally Twice a day , Unknown Irbesartan-hydroCHLOROthiazide 300-12.5 MG Tablet TAKE ONE TABLET BY MOUTH EVERY DAY , Unknown Lactulose 10 GM/15ML Solution TAKE 15ML BY MOUTH ONCE DAILY NEEDED , Unknown hydrOXYzine HCl 25 MG Tablet 1 tablet as needed Orally Two times a day , Unknown Meclizine HCl 25 MG Tablet 1 tablet as needed Orally every 12 hrs , Unknown Trulance 3 mg Tablet TAKE ONE TABLET BY MOUTH EVERY DAY , Unknown Alendronate Sodium 70 mg Tablet 1 tablet by mouth once weekly , Unknown Levothyroxine Sodium 25 MCG Tablet 1 tab(s) orally once a day , Unknown Myrbetriq 50 mg Tablet Extended Release 24 Hour 1 tablet Orally Once a day , Unknown Furosemide 20 mg Tablet 1 tablet Orally Once a day , Unknown Celecoxib 100 mg Capsule 1 capsule Orally Once a day , Unknown Donepezil HCl 5 mg Tablet TAKE ONE TABLET BY MOUTH EVERY DAY AT BEDTIME , Unknown Esomeprazole Magnesium 40 mg Capsule Delayed Release TAKE ONE CAPSULE BY MOUTH EVERY DAY , Unknown oxyCODONE HCl 10 MG Tablet 1 tab(s) orally 2 times a day , Unknown Memantine HCl 5 mg Tablet 1 tablet orally twice a day , Unknown Ondansetron HCl 4 MG Tablet 1 tablet Orally 3 times a day , Unknown LORazepam 1 MG Tablet 1 tab(s) orally 2 times a day , Unknown Voquezna 20 MG Tablet 1 tablet Orally Once a day , Unknown DULoxetine HCl 60 mg Capsule Delayed Release Particles TAKE ONE CAPSULE BY MOUTH EVERY DAY * Allergies: C odeine: numbness. Objective: * Vitals: Assessment: Plan: * Treatment: * Images: Billing Information: * Visit Code: * Procedure Codes: * Electronic signature of Fidelia Campos MD on 03/21/2025 at 03:16 PM EDT Sign off status: Pending * Provider: Briana Campos M.D. Date: 03/14/2025 Generated for [facility]/Hern[facility]/Simranitting on: 03/21/2025 03:16 PM EDT History and Physical Notes * HPI (History of Present Illness) Category Sub-Category Detail Notes Category Not es Urology frequent urination
--- OUTSIDE RECORDS SUMMARY | 2025-03-15 05:00 | XMS_ITS ---
Author Organization [facility] Address [address] [facility] [address] [place] [phone] Care Team Providers Care Manager Winter Name Role Phone Triston Campos Primary Care Provider Results Component Value Reference Range Notes Urinalysis - Inhouse Reviewed date:03/15/2025 12:36:45 PM Interpretation: Performing Lab: Notes/Report: Color/Clarity Gela/Cloudy Leuk 2+ Nitrite Neg Urobili >=131 Protein Trace pH 5.5 Blood Trace-Intact Sp. Gr. 1.015 Ketone Neg Bili 2+ Gluc Neg P-Culture, Urine Reviewed date:03/20/2025 11:03:44 AM Interpretation:intermediate Performing Lab: Notes/Report: Test performed by [facility] [address] [place] [address] , [address], [place] [address] Adrian Gilbert MD, Social Work Job Titles CLIA: [id number] Specimen Source Urine - Void Culture, Urine See Below See Microbiol ogy Report Klebsiella pneumoniae 50,000-100,000 CFU /ml Klebsiella pneumoniae Sensitivity Panel See Below _ Organism K.pneum Antibiotic INTERP _ Amikacin S Ampicillin R Aztreonam S Cefepime S Cefoxitin S Ceftazidime S Ceftriaxone S Cefuroxime S Ciprofloxacin S Ertapenem S Gentamicin S Imipenem S Levofloxacin S Meropenem S Nitrofurantoin I Piperacillin/Tazo S Tetracycline R Tobramycin S Trimeth/Sulfa S S=SUSCEPTIBLE I=INTERMEDIATE R=RESISTANT REASON FOR VISIT UA Medications Medication SIG (Take, Route, Frequency, Duration) Notes Start Date End Date Status Nitrofurantoin Monohyd Macro 100 MG 1 capsule with food Orally every 12 hrs; Duration: 5 days 03/15/2025 Active DULoxetine HCl 60 mg TAKE ONE CAPSULE BY MOUTH EVERY DAY; Duration: 30 Unknown Voquezna 20 MG 1 tablet Orally Once a day; Duration: 30 days 02/16/2025 Unknown LORazepam 1 MG 1 tab(s) orally 2 ti mes a day; Duration: 30 day(s) 02/19/2025 Unknown Ondansetron HCl 4 MG 1 tablet Orally 3 t imes a day Unknown Celecoxib 100 mg 1 capsule Orally Onc e a day; Duration: 90 days Unknown Memantine HCl 5 mg 1 tablet orally twic e a day; Duration: 90 days Unknown oxyCODONE HCl 10 MG 1 tab(s) orally 2 ti mes a day; Duration: 30 days 01/23/2025 Unknown Esomeprazole Magnesium 40 mg TAKE ONE CA PSULE BY MOUTH EVERY DAY; Duration: 90 Unknown Donepezil HCl 5 mg TAKE ONE TABLET BY MOUTH EVERY DAY AT BEDTIME; Duration: 90 Unknown Furosemide 20 mg 1 tablet Orally Once a day; Duration: 90 days Unknown Myrbetriq 50 mg 1 tablet Orally Once a day; Duration: 90 days Unknown Levothyroxine Sodium 25 MCG 1 tab(s) ora lly once a day; Duration: 90 days Unknown Alendronate Sodium 70 mg 1 tablet by [facility] once weekly; Duration: 84 days Unknown Trulance 3 mg TAKE ONE TABLET BY MOUTH EVERY DAY; Duration: 90 Unknown Meclizine HCl 25 MG 1 tablet as needed Orally every 12 hrs; Duration: 90 days Unknown hydrOXYzine HCl 25 MG 1 tablet as needed Orally Two times a day 11/15/2024 Unknown Lactulose 10 GM/15ML TAKE 15ML BY MOUTH ONCE DAILY NEEDED; Duration: 30 Unknown Irbesartan-hydroCHLOROthiazi de 300-12.5 MG TAKE ONE TABLET BY MOUTH EVERY DAY; Duration: 90 Unknown Briviact 75 MG 1 tab(s) orally Twic e a day; Duration: 90 days 10/18/2024 Unknown Docusate Sodium 250 mg TAKE ONE CAPSULE BY MOUTH TWICE DAILY NEEDED; Duration: 30 Unknown Gabapentin 300 MG 2 capsules orally 2 times daily 07/28/2024 Unknown MiraLax 17 GM/SCOOP 1 scoop mixed with 8 ounces of fluid Orally Once a day 06/29/2024 Unknown Azelastine HCl 137 MCG/SPRAY 2 puffs (1 spray in each nostril) Nasally Twice a day 06/29/2024 Unknown Diclofenac Sodium 1 % 4 grams Externally four times a day as needed 03/28/2024 Unknown Triamcinolone Acetonide 0.1 % 1 application Externally Twice a day 02/24/2024 Unknown Lumbar Back Brace/Support Pad - as directed 12/11/2022 Unknown Albuterol Sulfate HFA 108 (90 Base) MCG/ACT 2 puff(s) inhaled qid and q2h prn; Duration: 30 days 04/14/2022 Unknown Vitamin B 12 500 MCG 1 tab(s) orally onc e a day 03/06/2020 Unknown tiZANidine HCl 2 MG 1 tab(s) orally ever y 8 hours as needed Unknown Lactase - as directed Unknown Walker - as directed Unknown Commode Bedside - as directed Unknown Wheelchair - as directed Unkno wn Vitamin D3 50 MCG (1999 UT) 1 tab(s) ora lly twice a day Unknown Phenazopyridine HCl 200 MG 1 tablet afte r meals Orally Three times a day; Duration: 2 day(s) Unknown Tamsulosin HCl 0.4 MG 1 capsule Orally O nce a day; Duration: 30 day(s) Unknown Encounters Encounter Location Date Provider Diagnosis [facility] [address] [place] [phone] 03/15/2025 Triston Campos Acute UTI N39.0 Assessments Encounter Date Diagnosis (ICD Code) Assessment Notes Treatment Notes Treatment Clinical Notes Section Notes 03/15/2025 Acute UTI (ICD-10 - N39.0) Plan Of Treatment Medication Medication Name Sig Start Date Stop Date Notes Nitrofurantoin Monohyd Macro 100 MG 1 capsule with food Orally every 12 hrs; Duration: 5 days 03/15/2025 Next Appt Details Follow Up: via phone to repo rt test results, Reason: Progress Notes * Maura CARRERODOB:1940 (84 yo F)Acc No.[id number]:03/15/2025 Patient: Mauar SHULTZ Provider: Briana Campos M.D. :1940 A ge:84 Y S ex:Female Date:03/15/2025 Address:[facility] [address] [address], [id number] Subjective: * Chief Complaints: * 1 . UA. * HPI: H PI: Urine sample bryan to office by patient's daughter. * Medical History: * Medications: U nknown Tamsulosin HCl 0.4 [...] Objective: * Vitals: Assessment: * Assessment: 1. A cute UTI - N39.0 (Primary) Plan: * Treatment: Value Reference Range C ulture, Urine See Below - * S pecimen Source Urine - Void - * S ensitivity Panel See Below - * K lebsiella pneumoniae 50,000-100,000 CFU/ml Klebsiella pneumoniae - * Isabelle Yu 03/20/2025 11:0 2:13 AM EDT >pt started on nitrofurantoinIsabelle Yu 03/20/2025 11:03:39 AM EDT > See phone encounter ?LAB: Urinalysis - Inhouse (Collection Date & Time - 03/15/2025)* Value Reference Range C olor/Clarity Gela/Cloudy * L euk 2+ * N itrite Neg * U robili >=131 * P rotein Trace * p H 5.5 * B lood Trace-Intact * S p. Gr. 1.015 * K etone Neg * B hilda 2+ * G joselyn Neg * Laura Mccollum 03/15/2025 09:48: 02 AM EDT > * Procedure Codes: 8 1002 Urinalysis, no micro * Follow Up: v ia phone to report test results * Images: Billing Information: * Visit Code: * Procedure Codes: 06560 Urinalysis, no micro. * Electronic signature of Fidelia Campos MD on 03/21/2025 at 03:16 PM EDT Sign off status: Pending * Provider: Briana Campos M.D. Date: 0 03/15/2025 Generated for [facility]/[place]/eTransmstiven on: 0 03/21/2025 03:16 PM EDT History and Physical Notes * HPI (History of Present Illness) Category Sub-Category Detail Notes Category Not es HPI Urine sample br ough to office by patient's daughter
--- OUTSIDE RECORDS SUMMARY | 2025-03-21 15:16 | XMS_ITS | Patient Health Record ---
Author Organization [facility] Address [address] [place] [id number] Care Team Providers Care Propeller Tester Name Role Phone Arlette Camposian Primary Care Provider Leena Bhagat Unavailable [phone] Allergies Allergen (clinical drug ingredient) Drug/Non Drug Allergy documented on EMR Reaction Allergy Type Onset Date Status codeine Codeine numbness Drug Allergy Active Results Component Value Reference Range Notes CBC Venipuncture (in house) (Not yet reviewed by provider) Interpretation: Performing Lab: Notes/Report: wbc 7.2 3.5 - 10 lymph 26.9% 15 - 50 mid 5.2% 2 - 15 gran 67.9% 35 - 80 rbc 4.60 3.5 - 5.5 hgb 14.6 11.5 - 16.5 hct 44.9 35 - 55 mcv 97.5 75 - 100 mch 31.8 25 - 35 mchc 32.6 31 - 38 platlet 277 100 - 400 Urinalysis - Inhouse Reviewed [...] 40 Performing Lab: Notes/Report: Test performed by [facility] [address] , [address], [place] [address] Adrian Gilbert MD, Watch And Clock Repair Clerk CLIA: [id number] Sodium 141 135-145 mmol/L Potassium 4.4 3.5-5.3 [...] Interpretation:1402 Performing Lab: Notes/Report: Test performed by [facility] [address] , [address], [place] [address] Adrian Gilbert MD, Watch And Clock Repair Clerk CLIA: [id number] Vitamin B12 9453 311-1380 pg/mL P-Comprehensive Metabolic Pa krystal (CMP) Reviewed date:08/12/2024 01:27:24 PM Interpretation:bun 35, cr 1.35, gfr 38 Performing Lab: Notes/Report: Test performed by [facility] [address] [place] [address] , [address], [place] [address] Adrian Gilbert MD, Watch And Clock Repair Clerk CLIA: [id number] Sodium 142 135-145 mmol/L Potassium 5.1 3.5-5.3 [...] growth Performing Lab: Notes/Report: Test performed by [facility] [address] [place] [address] , [address], [place] [address] Adrian Gilbert MD, Watch And Clock Repair Clerk CLIA: [id number] Specimen Source Urine - CC Culture, Urine See Below Final Report : No growth P-Magnesium Reviewed date:08/12/2024 01:27:24 PM Interpretation: Normal Performing Lab: Notes/Report: Test performed by [facility] [address] , [address], [place] [address] Adrian Gilbert MD, Watch And Clock Repair Clerk CLIA: [id number] Magnesium 2.3 1.6-2.4 mg/dL P-Phosphorus Reviewed date:08/12/2024 01:27:24 PM Interpretation: Normal Performing Lab: Notes/Report: Test performed by [facility] [address] , [address], [place] [address] Adrian Gilbert MD, Watch And Clock Repair Clerk CLIA: [id number] Phosphorus 3.3 2.5-4.5 mg/dL P-TSH reflex to FT4 Reviewed date:08/12/2024 01:27:24 PM Interpretation: Normal Performing Lab: Notes/Report: Test performed by [facility] [address] , [address], [place] [address] Adrian Gilbert MD, Watch And Clock Repair Clerk CLIA: [id number] TSH reflex to FT4 4.20 0.43-5.25 mU/L P-Vitamin D 25-Hydroxy Reviewed date:08/12/2024 01:27:24 PM Interpretation: Normal Performing Lab: Notes/Report: Test performed by [facility] [address] , [address], [place] [address] Adrian Gilbert MD, Watch And Clock Repair Clerk CLIA: [id number] Vitamin D 25-Hydroxy 67.3 30.0-100.0 ng/mL Interpretation of Vitamin D 25 OH: < 20 ng/mL - Deficiency 20 - 29 ng/mL - Insufficiency 30 - 100 ng/mL - Sufficiency > 100 ng/mL - Super-therapeutic- toxicity may occur above this level. Clinical correlation required. Urinalysis - Inhouse Reviewed date:03/15/2025 12:36:45 PM Interpretation: Performing Lab: Notes/Report: Color/Clarity Gela/Cloudy Leuk 2+ Nitrite Neg Urobili >=131 Protein Trace pH 5.5 Blood Trace-Intact Sp. Gr. 1.015 Ketone Neg Bili 2+ Gluc Neg P-Culture, Urine Reviewed date:03/20/2025 11:03:44 AM Interpretation:intermediate Performing Lab: Notes/Report: Test performed by [facility], [address] , [place] [address] Adrian Gilbert MD, Watch And Clock Repair Clerk CLIA: [id number] Specimen Source Urine - Void Culture, Urine See Below See Microbiol ogy Report Klebsiella pneumoniae 50,000-100,000 CFU/ml Klebsiella pneumoniae Sensitivity Panel See Below _ Organism K.pneum Antibiotic INTERP _ Amikacin S Ampicillin R Aztreonam S Cefepime S Cefoxitin S Ceftazidime S Ceftriaxone S Cefuroxime S Ciprofloxacin S Ertapenem S Gentamicin S Imipenem S Levofloxacin S Meropenem S Nitrofurantoin I Piperacillin/Tazo S Tetracycline R Tobramycin S Trimeth/Sulfa S S=SUSCEPTIBLE I=INTERMEDIATE R=RESISTANT Urinalysis - Inhouse Reviewed date:09/08/2024 11:03:52 AM Interpretation:tracke leuk Performing Lab: Notes/Report: tracke leuk Color/Clarity dark yellow/cloudy Leuk Trace Nitrite Neg Urobili 3.2 Protein Neg pH 5.5 Blood Neg Sp. Gr. >=1.030 Ketone Trace Bili Neg Gluc Neg Urinalysis - Inhouse [...] 34 Performing Lab: Notes/Report: Test performed by [facility], [address] , [address], [place] [address] Adrian Gilbert MD, Watch And Clock Repair Clerk CLIA: [id number] Sodium 143 135-145 mmol/L Potassium 4.1 3.5-5.3 [...] Interpretation:Normal Performing Lab: Notes/Report: Test performed by [facility] [address] [place] [address] , [address], [place] [address] Adrian Gilbert MD, Watch And Clock Repair Clerk STEVEN: [id number] TSH reflex to FT4 2.68 0.43-5.25 mU/L TEN-UTI panel Reviewed date:11/14/2024 10:18:38 AM Interpretation:E. Coli-sensitive Performing Lab: Notes/Report: E. Coli-sensitive TEN-UTI panel Reviewed date:11/14/2024 10:18:38 AM Interpretation:E. Coli-sensitive Performing Lab: Notes/Report: E. Coli-sensitive CBC Fingerstick (in house) Reviewed date:11/17/2024 12:49:40 [...] - 38 plat 199 100 - 400 Influenza Screen (in house) Reviewed date:11/17/2024 12:47:12 PM Interpretation:neg Performing Lab: Notes/Report: neg results neg Urinalysis - Inhouse Reviewed date:11/17/2024 12:41:29 PM Interpretation: Performing Lab: Notes/Report: Color/Clarity gela/clear Leuk Neg Nitrite Neg Urobili 3.2 Protein Trace pH 5.5 Blood Neg Sp. Gr. 1.015 Ketone Neg Bili Neg Gluc Neg TEN-UTI panel Reviewed date:09/08/2024 11:10:00 AM Interpretation:Negative Performing Lab: Notes/Report: Negative Urinalysis - Inhouse Reviewed date:05/10/2024 01:10:57 PM Interpretation: Performing Lab: Notes/Report: Color/Clarity yellow/clear Leuk trace Nitrite neg Urobili 3.2 Protein neg pH 5.5 Blood neg Sp. Gr. 1.020 Ketone neg Bili neg Gluc neg P-Basic Metabolic Panel (BMP ) Reviewed date:05/10/2024 01:09:01 PM Interpretation:gluc 111, bun 36, creat 1.42, gfr 36 Performing Lab: Notes/Report: Test performed by [facility] [address] [place] [address] , [address], [place] [address] Adrian Gilbert MD, Watch And Clock Repair Clerk CLIA: [id number] Sodium 143 135-145 mmol/L Potassium 4.3 3.5-5.3 mmol/L Chloride 103 97-108 mmol/L CO2 28 22-32 mmol/L Glucose 111 65-99 mg/dL BUN 36 8-23 mg/dL Creatinine 1.42 0.50-1.00 mg/dL Calcium 9.9 8.6-10.4 mg/dL eGFR by Creatinine 36 >59 mL/min/1.73m2 TEN-UTI panel Reviewed date:05/11/2024 02:55:20 PM Interpretation:Abnormal Performing Lab: Notes/Report: Abnormal LC-Brivaracetam level serum Reviewed date:07/06/2024 08:50:12 AM Interpretation:3.86 Performing Lab:[facility], [address] [place] [phone], Phone - [phone], Director - [facility] Notes/Report: Brivaracetam 3.86 0.20 - 2.00 ug/mL This test was developed and its performance characteristics determined by [facility]. It has not been cleared or approved by the Food and Drug Administration. Urinalysis - Inhouse Reviewed date:10/26/2024 08:29:47 AM Interpretation: Performing Lab: Notes/Report: Color/Clarity yellow/clear Leuk 1+ Nitrite Pos Urobili 3.2 Protein 1+ pH 5.0 Blood Neg Sp. Gr. 1.020 Ketone Neg Bili Neg P-Culture, Urine Reviewed date:10/30/2024 09:21:08 AM Interpretation:suggest contamination, recollection recommended Performing Lab: Notes/Report: Test performed by [facility] [address] [place] [address] , [address], [place] [address] Adrian Gilbert MD, Watch And Clock Repair Clerk CLIA: [id number] Specimen Source Urine - Void Culture, Urine [...] Growth Performing Lab: Notes/Report: Test performed by [facility] [address] [place] [place] [address] , [address], [place] [id number] Adrian Gilbert MD, Watch And Clock Repair Clerk CLIA: [id number] Specimen Source Urine - Void Culture, Urine See Below Final Report : No Significant Growth Urinalysis - Inhouse Reviewed date:01/09/2025 07:35:00 PM Interpretation: Performing Lab: Notes/Report: Color/Clarity yellow/clear Leuk Neg Nitrite Neg Urobili 3.2 Protein Neg pH 5.5 Blood Neg Sp. Gr. 1.020 Ketone Neg Bili Neg Gluc Neg P-Culture, Urine Reviewed date:01/16/2025 01:36:03 PM Interpretation:suggest contamination, Specimen recollection is recommended Performing Lab: Notes/Report: Test performed by [facility] [address] [place] [place] [address] , [address], [place] [id number] Adrian Gilbert MD, Watch And Clock Repair Clerk CLIA: [id number] Specimen Source Urine - Void Culture, Urine See Below Final Report : 10,000-15,000 CFU/ml Mixed Gram Positive and Negative Organisms Three or more organisms present likely representing contamination during collection by patient's urogenital, skin, and/or fecal abdi. Organism identification and sensitivity assessment are not recommended. Specimen recollection is recommended. Urinalysis - Inhouse Reviewed date:01/17/2025 06:16:40 PM Interpretation: Performing Lab: Notes/Report: Color/Clarity Yellow/Clear Leuk Trace Nitrite Neg Urobili 3.2 Protein Neg pH 5.5 Blood Neg Sp. Gr. 1.020 Ketone Neg Bili Neg Gluc Neg Urinalysis - Inhouse Reviewed date:02/02/2025 09:37:15 PM [...] growth Performing Lab: Notes/Report: Test performed by [facility] [address] [place] [address] , [address], [place] [address] Adrian Gilbert MD, Watch And Clock Repair Clerk CLIA: [id number] Specimen Source Urine - Void Culture, Urine See Below Final Report : No growth M-Miscellaneous Test Reviewed date:04/05/2024 11:34:56 AM Interpretation: Performing Lab: Notes/Report: BRIVARACETAM LC#[id number] MISCT SCANNED IMAGE IMAGE SENT TO MEDICAL RECORDS TO BE SCANNED TEN-UTI panel Reviewed date:01/19/2025 08:37:21 AM Interpretation:Negative Performing Lab: Notes/Report: Negative Medications Medication SIG (Take, Route, Frequency, Duration) Notes Start Date End Date Status Walker - as directed Not-Taki ng Celecoxib 100 mg 1 capsule Orally Onc e a day; Duration: 90 days Not-Taking Commode Bedside - as directed Not-Taking Furosemide 20 mg 1 tablet Orally Once a day; Duration: 90 days Not-Takin g Vitamin D3 50 MCG (1999 UT) 1 tab(s) orally twice a day Not-Taking Esomeprazole Magnesium 40 mg TAKE ONE CAPSULE BY MOUTH EVERY DAY; Duration: 90 Not-Taking Lactase - as directed Not-Taki ng Donepezil HCl 5 mg TAKE ONE TABLET BY MOUTH EVERY DAY AT BEDTIME; Duration: 90 Not-Taking Vitamin B 12 500 MCG 1 tab(s) orally onc e a day 03/06/2020 Not-Taking tiZANidine HCl 2 MG 1 tab(s) orally ever y 8 hours as needed Not-Taking oxyCODONE HCl 10 MG 1 tab(s) orally 2 times a day; Duration: 30 days 01/23/2025 Not-Taking Albuterol Sulfate HFA 108 (90 Base) MCG/ACT 2 puff(s) inhaled qid and q2h prn; Duration: 30 days 04/14/2022 Not-Taking hydrOXYzine HCl 25 MG 1 tablet as needed Orally Two times a day 11/15/2024 Not-Takin g Tamsulosin HCl 0.4 MG 1 capsule Orally O nce a day; Duration: 30 day(s) Not-Taking Alendronate Sodium 70 mg 1 tablet by [facility] once weekly; Duration: 84 days Not-Taking Meclizine HCl 25 MG 1 tablet as needed Orally every 12 hrs; Duration: 90 days Not-Taking Wheelchair - as directed Not-T aking Myrbetriq 50 mg 1 tablet Orally Once a day; Duration: 90 days Not-Takin g Phenazopyridine HCl 200 MG 1 tablet afte r meals Orally Three times a day; Duration: 2 day(s) Not-Taking Levothyroxine Sodium 25 MCG 1 tab(s) orally once a day; Duration: 90 days Not-Takin g Gabapentin 300 MG 2 capsules orally 2 times daily 07/28/2024 Not-Taking MiraLax 17 GM/SCOOP 1 scoop mixed with 8 ounces of fluid Orally Once a day 06/29/2024 Not-Taking Ondansetron HCl 4 MG 1 tablet Orally 3 times a day Active Briviact 75 MG 1 tab(s) orally Twic e a day; Duration: 90 days 10/18/2024 Not-Taking Docusate Sodium 250 mg TAKE ONE CAPSULE BY MOUTH TWICE DAILY NEEDED; Duration: 30 Not-Taking Lactulose 10 GM/15ML TAKE 15ML BY MOUTH ONCE DAILY NEEDED; Duration: 30 Not-Taking Irbesartan-hydroCHLOROthia zide 300-12.5 MG TAKE ONE TABLET BY MOUTH EVERY DAY; Duration: 90 Not-Taking Cefuroxime Axetil 500 MG 1 tablet Orally every 12 hrs; Duration: 5 days 03/20/2025 Active Trulance 3 mg 1 tablet orally once a day; Duration: 90 days Active Memantine HCl 5 mg 1 tablet orally twic e a day; Duration: 90 days Not-Taking Triamcinolone Acetonide 0.1 % 1 application Externally Twice a day 02/24/2024 Not-Shaun roth Voquezna 20 MG 1 tablet Orally Once a day; Duration: 30 days 02/16/2025 Not-Shaun roth Lumbar Back Brace/Support Pad - as directed 12/11/2022 Not-Taking LORazepam 1 MG 1 tab(s) orally 2 times a day; Duration: 30 day(s) 02/19/2025 Not-Taking Azelastine HCl 137 MCG/SPRAY 2 puffs (1 spray in each nostril) Nasally Twice a day 06/29/2024 Not-Taking Diclofenac Sodium 1 % 4 grams Externally four times a day as needed 03/28/2024 Not-Taking DULoxetine HCl 60 mg TAKE ONE CAPSULE BY MOUTH EVERY DAY; Duration: 30 Not-Taking Immunizations Vaccine Route Administration Date Status Comme [...] 04/12/2023 Administered xFlu shot- 6months-36 months of alr-AINA-FPYX-triva lent Unknown 03/22/2012 Administered xFluzone (6mos and older)-trivalent Unknown 06/11/2007 Administered xFluzone (6mos and older)-trivalent Unknown 05/21/2008 Administered xFluzone High Dose-private (65yr&older) IM Intramuscular 04/10/2014 Administered Problems Problem Type SNOMED Code ICD Code Onset Dates Problem Status W/U Status Risk Notes Problem Essential hypertension (96464980) Essential (primary) hypertension (I10) Active confirmed Problem Essential hypertension (36392575) Essential hypertension (I10) Active confirmed Problem Hypertriglyceridemia (381966045) Hypertriglyceridemia (E78.1) Active confirmed Problem Anxiety (11842770) Anxiety (F41.9) Active confi rmed Problem Dysuria (22576305) Dysuria (R30.0) Active confi rmed Problem Mixed anxiety and depressive disorder (943523793) Depression with anxiety (F41.8) Active confirmed Problem Memory loss (91374299) Memory loss (R41.3) Active confirmed Problem Seizure disorder (702482989) Seizure disorder (G40.909) Active confirmed Problem Sciatica (41026414) Lumbago with sciatica, right side (M54.41) Active confirmed Problem Fatigue (25651251) Other fatigue (R53.83) Active confirmed Problem Sciatica (32884279) Lumbago with sciatica, left side (M54.42) Active confirmed Problem Urge incontinence of urine (02736197) Urge incontinence (N39.41) Active confirmed Problem Frequency of micturition (295631519) Frequency of micturition (R35.0) Active confirmed Problem Malaise (071939494) Other malais e (R53.81) Active confirmed Problem Chronic pain (15296646) Other chronic pain (G89.29) Active confirmed Problem Lumbosacral spondylosis without myelopathy (02449091) Lumbosacral radiculopathy due to degenerative joint disease of spine (M47.27) Active confirmed Problem Acquired hypothyroidism (766703277) Acquired hypothyroidism (E03.9) Active confirmed Problem Low back pain (617399405) Bilateral low back pain without sciatica (M54.5) Active confirmed Problem Lumbar spinal stenosis (21950944) Spinal stenosis, lumbar (724.02) Active confirmed Problem Kidney stone (91403761) Kidney stone (N20.0) Active confirmed Problem Gastroesophageal reflux disease (011196734) Gastroesophageal reflux disease, esophagitis presence not specified (K21.9) Active confirmed Problem Osteoporosis (57176039) Osteoporosis (M81.0) Active confirmed Problem Ataxia (80918581) Ataxia (R27.0) Active confirm ed Problem Altered mental statu s (856274213) Altered mental status, unspecified altered mental status type (R41.82) Active confirmed Problem Recurrent falls (599847599) Frequent falls (R29.6) Active confirmed Problem Body mass index 30.0 0 to 34.99 (056260988043596) BMI 34.0-34.9,adult (Z68.34) Active confirmed Problem Dementia (12035029) Dementia wit hout behavioral disturbance (F03.90) Active confirmed Problem Chronic idiopathic constipation (00612619) Chronic idiopathic constipation (K59.04) Active confirmed Problem Lumbosacral spondylosis without myelopathy (82624181) Osteoarthritis of lumbar spine, unspecified spinal osteoarthritis complication status (M47.816) Active confirmed Problem Hearing loss (25470642) Hearing loss of left ear, unspecified hearing loss type (H91.92) Active confirmed Problem Seasonal allergic rhinitis (633539725) Seasonal allergic rhinitis, unspecified trigger (J30.2) Active confirmed Problem Allergic rhinitis (68133885) Allergic rhinitis, unspecified seasonality, unspecified trigger (J30.9) Active confirmed Problem Chronic kidney disease stage 3B (disorder) (567337124) Stage 3b chronic kidney disease (N18.32) Active confirmed Problem Low back pain (891206756) Low back pain, unspecified (M54.50) Active confirmed Problem Chronic kidney disease stage 3A (disorder) (747904573) Stage 3a chronic kidney disease (CKD) (N18.31) Active confirmed Problem Localized, primary osteoarthritis of the shoulder region (734602713) 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 [address] [place], [place] [id number] 05/09/2024 Triston Seneca Pyuria R82.[address] age 3b chronic kidney disease N18.32 [facility] [address] [place], [place] [id number] 06/29/2024 Triston Seneca Seizure disorder G40 .909 ; Seasonal allergic rhinitis, unspecified trigger J30.2 and Chronic idiopathic constipation K59.04 [facility] [address] [place], [place] [id number] 08/11/2024 Triston Seneca Fatigue, unspecified type R53.83 ; Anorexia R63.0 ; Stage 3b chronic kidney disease N18.32 ; Open wound of right forearm, initial encounter S51.801A ; Pyuria R82.81 ; Acute abdominal pain R10.9 ; Urinary tract infection without hematuria, site unspecified N39.0 and Urinary frequency R35.0 [facility] [address] [place], [place] [id number] 09/06/2024 Triston Seneca Frequent UTI N39.0 [facility] [address] [place], [place] [id number] 10/25/2024 Triston Seneca Acute UTI N39.0 ; Se izure disorder G40.909 ; Acquired hypothyroidism E03.9 ; Anxiety F41.9 ; Essential (primary) hypertension I10 ; Low back pain, unspecified M54.50 ; Dementia without behavioral disturbance F03.90 and BMI 34.0-34.9,adult Z68.34 [facility] [address] [facility] [address] [place] [id number] 10/31/2024 Triston Seneca Urinary tract infect ion without hematuria, site unspecified N39.0 [facility] [address] [place] [id number] 11/10/2024 Triston Seneca Frequent UTI N39.0 ; Fatigue, unspecified type R53.83 and Stage 3b chronic kidney disease N18.32 [facility] [address] [place] [id number] 11/17/2024 Triston Seneca Acute UTI N39.0 and Fever, unspecified R50.9 [facility] [address] [place] [id number] 01/09/2025 Triston Seneca Chronic UTI N39.0 [facility] [address] [place] [id number] 01/17/2025 Triston Seneca Chronic UTI N39.0 [facility] [address] [place] [id number] 02/02/2025 Triston Seneca Nausea R11.0 and Pyu yash R82.81 [facility] [address] [place] [id number] 02/16/2025 Triston Seneca Dyspepsia R10.13 [facility] [address] [place] [id number] 03/15/2025 Triston Seneca Acute UTI N39.0 [facility] [address] [place] [id number] 03/21/2025 Triston Seneca Nausea and vomiting, unspecified vomiting type R11.2 ; Generalized abdominal pain R10.84 ; Chronic constipation K59.09 and Acquired hypothyroidism E03.9 [facility] [address] [place] [id number] 03/30/2024 Leena Crowdy [facility] [address] [place] [id number] 04/03/2024 Triston Seneca [facility] [address] [place] [id number] 05/08/2024 Triston Seneca Depression with anxi ety F41.8 [facility] [address] [place] [id number] 05/10/2024 Triston Seneca [facility] [address] [place] [id number] 06/15/2024 Triston Seneca [facility] [address] [place] [id number] 07/06/2024 Triston Seneca [facility] [address] [place] [id number] 07/18/2024 Triston Seneca Low back pain, unspecified M54.50 [facility] [address] [place] [id number] 07/27/2024 Triston Seneca [facility] [address] [place] [id number] 08/12/2024 Triston Seneca [facility] [address] [place] [id number] 08/17/2024 Triston Seneca Depression with anxi ety F41.8 and Low back pain, unspecified M54.50 [facility] [address] [place] [id number] 09/26/2024 Triston Seneca Low back pain, unspecified M54.50 [facility] [address] [place] [id number] 10/18/2024 Triston Seneca Seizure disorder G40 .909 [facility] [address] [place] [id number] 10/30/2024 Triston Seneca [facility] [address] [place] [id number] 11/14/2024 Triston Seneca [facility] [address] [place] [id number] 11/15/2024 Triston Seneca [facility] [address] [place] [id number] 11/20/2024 Triston Seneca Depression with anxi ety F41.8 [facility] [address] [place] [id number] 11/22/2024 Triston Seneca [facility] [address] [place] [id number] 01/23/2025 Triston Seneca Low back pain, unspecified M54.50 [facility] [address] [place] [id number] 02/19/2025 Triston Seneca Depression with anxi ety F41.8 [facility] [address] [place] [id number] 02/26/2025 Triston Seneca Dyspepsia R10.13 [facility] [address] [place] [id number] 02/27/2025 Triston Seneca [facility] [address] [place] [id number] 02/28/2025 Triston Seneca [facility] [address] [place] [id number] 03/12/2025 Triston Seneca Dyspepsia R10.13 [facility] [address] [facility] [address] [place], [place] [id number] 03/20/2025 Triston Seneca Acute UTI N39.0 Assessments Encounter Date Diagnosis (ICD Code) Assessment Notes Treatment Notes Treatment Clinical Notes Section Notes 03/28/2024 Urinary frequency (ICD-10 - R35.0) 03/28/2024 [...] - F41.8) 02/26/2025 Dyspepsia (ICD-10 - R10.13) 03/12/2025 Dyspepsia (ICD-10 - R10.13) 03/15/2025 Acute UTI (ICD-10 - N39.0) 03/20/2025 Acute UTI (ICD-10 - N39.0) 03/21/2025 Generalized abdominal pain (ICD-10 - R10.84) 10/31/2024 Urinary tract infection without hematuria, site unspecified (ICD-10 - N39.0) 11/10/2024 Frequent UTI (ICD-10 - N39.0) 11/10/2024 Fatigue, unspecified type (ICD-10 - R53.83) 03/21/2025 Nausea and vomiting, unspecified vomiting type (ICD-10 - R11.2) 03/21/2025 Chronic constipation (ICD-10 - K59.09) 11/10/2024 Stage 3b chronic kidney disease (ICD-10 - N18.32) 10/25/2024 Acquired hypothyroidism (ICD-10 - E03.9) 08/17/2024 Low back pain, unspecified (ICD-10 - M54.50) 08/11/2024 Stage 3b chronic kidney disease (ICD-10 - N18.32) 06/29/2024 Chronic idiopathic constipation (ICD-10 - K59.04) 03/28/2024 Seizure disorder (ICD-10 - G40.909) 03/28/2024 Pain in right shoulder (ICD-10 - M25.511) 08/11/2024 Open wound of right forearm, initial encounter (ICD-10 - S51.801A) 10/25/2024 Anxiety (ICD-10 - F41.9) 03/21/2025 Acquired hypothyroidism (ICD-10 - E03.9) 08/11/2024 Pyuria (ICD-10 - R82.81) 10/25/2024 Essential (primary) hypertension (ICD-10 - I10) 08/11/2024 Acute abdominal pain (ICD-10 - R10.9) 10/25/2024 Low back pain, unspecified (ICD-10 - M54.50) 10/25/2024 Dementia without behavioral disturbance (ICD-10 - F03.90) 08/11/2024 Urinary tract infection without hematuria, site unspecified (ICD-10 - N39.0) 08/11/2024 Urinary frequency (ICD-10 - R35.0) 10/25/2024 BMI 34.0-34.9,adult (ICD-10 - Z68.34) Plan Of Treatment Pending Test Test Name Order Date X ray : Abdomen-KUB with upright films 0 03/21/2025 CBC Venipuncture (in house) 03/21/2025 P-Amylase 03/21/2025 P-Comprehensive Metabolic Panel (CMP) P-Lipase 03/21/2025 P-Magnesium 03/21/2025 P-Phosphorus 03/21/2025 P-TSH reflex to FT4 03/21/2025 Insurance Providers Payer Name Payer Address Payer Phone Subscriber Number Group Number Insured Name Patient Relationship to Insured Coverage Start Date Coverage End Date MEDICARE PART B [address] [address] [place] [address] [id number] Maura Carrero Self - patient is the insured [employer] [address] [place] [id number] Magan Maura Self - patient is the insured Medications [...]
--- OUTSIDE RECORDS SUMMARY | 2025-03-21 15:16 | XMS_ITS | Clinical Summary ---
Author Organization [facility] Address [address] [place] [address] Care Team Providers Care Master [place] Name Role Phone Provider, No Known Primary Care Provider [phone] Medications methocarbamol (ROBAXIN) 750 MG tablet TAKE [...] 75+ series) 4 COVID-19 Vaccine (1 - season) 2025 INFLUENZA VACCINE 04/04/2025 Additional Health Concerns Infection Onset Date Last Indicated MRSA Comment:nares screen 09/03/2015 09/03/2015 Care Teams Master [place] Relationship Specialty Start Date End Date Provider, [place] [address] PCP - General 11/14/15
--- OUTSIDE RECORDS SUMMARY | 2025-03-21 15:17 | XMS_ITS | Encounter Summary ---
Author Organization Healthcare Address [address] [place] [address] Care Team Providers Care Ground Operations Superintendent Name Role Phone Triston Campos MD Primary Care Provider + [phone] Encounter Details Date Type Department Care Team (Late st Contact Info) Description 12/12/2024 Results Follow-Up [facility] Urology [address] [place] [address] NoJudie thrasher M, DOUGHNUT ICER [address] [place] [address] Social History Tobacco Use Types [...] and Family Not on file 02/21/2024 Attends [employer] Not on file 02/20 Active Member [...] place to sleep or slept in a fpc (including now)? No 02/21/2024 AUDIT-C Answer Date [...] 06/14/2025 8:30 AM EST Appointment [facility] Ultrasound 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 Source: [facility]. 09/03/2015 02/18/2024 Assessment Noted Time A fall risk assessment has been complete d for the patient 12/07/2024 10:09 AM EDT A Body Mass Index follow-up plan has been documented for the patient 12/07/2024 10:32 AM EDT documented as of this encounter Care Teams Ground Operations Superintendent Relationship Specialty Start Date End Date Triston Campos MD [address] [address] PCP - General 11/15/20 documented as of this encounter
--- OUTSIDE RECORDS SUMMARY | 2025-03-21 15:17 | XMS_ITS | Clinical Summary ---
Author Organization [facility] Address [address] [place] [address] Care Team Providers Care Broadcaster Name Role Phone Triston Campos MD Primary Care Provider + [phone] Allergies Active Allergy Reactions Criticality Noted Date [...] Diagnosed Date Sepsis 02/18/2024 Septic shock 02/18/2024 Family History Medical History Relation Name Comments [...] and Family Not on file 02/21/2024 Attends [employer] Services Not on file 02/20 Active Member [...] place to sleep or slept in a intermediate (including now)? No 02/21/2024 AUDIT-C Answer Date [...] Info) Description 06/14/2025 8:30 AM EST Appointment [facility] Ultrasound [address] [place] [address] 06/14/2025 10:30 AM EST Office Visit Medical Office Building Urology [address] [facility], [address] [place] [address] Judie Borrero M, COKE DRAWER [address] [place] [address] Health Maintenance Due Date Last Done Comments [facility]-Bone Density Scan 1938 [facility]-Medicare Annual Wellness (AWV) 1938 [facility]-/Child/Adol SDOH Screenings 1938 [facility]- SDOH Screenings 1956 [facility]-Adult SDOH Screenings 1956 [facility]-DTaP,Tdap,and Td Vaccines (1 - Tdap) 1957 [facility]-Zoster Vaccines (1 of 2) 1988 [facility]-RSV Vaccine: 60+ Years or (1 - 1-dose 75+ series) 2013 [id number] Vaccine ( - season) 2025 05/09/2021, 09/11/2020, 08/14/2020 [facility]-Influenza Vaccine (#1) 03/05/202508/31, [...] this topic Medical Devices Implanted Type Area Health And Wellness Director Device Identifier Shelf Expiration Date Model / Serial / Lot Stent Ureteral Double Pigtail Pos 6fr 22cm - [id number] - [id number] Implanted:Qty: 1 on 02/18/2024 by Maru Persaud MD at [facility] [id number] 05/19/2025 [id number] / [id number] / Stent Ureteral Double Pigtail Pos 5fr 22cm - [id number] Implanted:Qty: 1 on 03/07/2024 by Mrau Persaud MD at [facility] [id number] 09/01/2026 [id number] / / [id number] Additional Health Concerns Infection Onset Date 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 Source: [facility]. 09/03/2015 02/18/2024 Insurance MEDICAID-[place] MEDICARE Advance Directives Documents on File Type Date Recorded Patient Colon And Rectal Surgeon Expl anation Advance Directives and Living Will 03/07/2024 * Full Code (Latest Code Status on File) Date Activated Date Inactivated Comments 02/18/2024 7:05 PM 02/21/2024 6:15 PM Discussed wi th Daughter, Lila Go, about code status. She states that she is power of contracts attorney over her mother's medical decision making. 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 Therefore, daughter states her wishes would be to be designated as Full Code. Question Answer Comments Patient has decision-making capacity? No Healthcare Surrogate: Adult child of the patient Name of Healthcare Surrogate: Lila Go Care Teams Broadcaster Relationship Specialty Start Date End Date Triston Campos MD [facility] [place] [address] PCP - General 11/15/20
--- NOTE | 2025-03-21 15:19 | XR_ITS ---
FINAL REPORT CLINICAL HISTORY: abd pain on rt side COMPARISON: None FINDINGS: A single view of the abdomen was obtained. The visualized intestinal gas pattern appears normal. Pelvic calcifications are most likely phleboliths. There are severe degenerative changes throughout the entire lumbar spine. IMPRESSION: No acute findings. Reviewed, Interpreted and Dictated by Carolina Reid MD Transcribed by Ilana Yo Authenticated and [facility]
== END 2025-03-21 23:59 | disposition home or self-care (01) ==
LOC: RAD 15:14
PROVIDERS: PCP Family Medicine; Visit Provider Family Medicine
DX: R10.84 Generalized abdominal pain (principal)
CPT/HCPCS: 74019

== ENCOUNTER 2025-04-17 11:09 | Day surgery (SDC) | payer MEDICARE, MEDICAID, SELFPAY ==
[2025-04-17 11:30] VITALS: BP 173/64; PULSE 82; RESP 18; O2SAT 91; BMI 27.9
[2025-04-17] MEDS: LIDOCAINE 1% 5ML PF VIAL 5 ML (11:36)
[2025-04-17] MEDS: DEXAMETHASONE 10MG/ML 1ML VIAL 10 MG (11:36)
[2025-04-17] MEDS: BUPIVACAINE 0.25% 10ML INJ 25 MG IJ (11:36)
[2025-04-17 11:37] VITALS: BP 173/64; PULSE 82; RESP 18; O2SAT 93
--- NOTE | 2025-04-17 11:38 | EXP.PAIN.PRO ---
Procedure Date: 04/17/25 Time: 11:30 Anesthesiologist:: Virgil Ventura CRNA Complications:: None Pre-procedure Diagnosis:: Left sacroiliitis Post-procedure Diagnosis:: Same Indications for Procedure:: Patient is a pleasant 84-year-old female comes to clinic today for repeat left sacroiliac joint injection cortisone local anesthetic. Patient describes left low lumbar back pain as constant, dull, aching. Also, left posterior hip pain that she describes as constant, dull, aching. She is having difficulty transitioning from sitting to standing. She rates her pain 7/10. Procedure Details:: Procedure: Left sacroiliac injection under fluoroscopy Informed consent was obtained and the risk and benefits of the procedure were explained to the patient.~ The patient was taken to the procedure room and noninvasive monitors were placed including noninvasive blood pressure cuff and pulse oximeter.~ The patient was placed prone on the procedure table.~ The~ left hip was cleansed using Betadine as a cleansing solution.~ C-arm fluorosocpy was used to view the left SI joint.~ The skin and subcutaneous tissues were anesthetized using Lidocaine 1.5% and a 25-gauge needle.~ After this, a 22-gauge spinal needle was inserted under fluoroscopic guidance into the inferior aspect of the left SI joint.~ Omnipaque dye was injected and a good spread was seen throughout the joint.~ After this, approximately 5 mL of bupivacaine 0.25% and dexamethasone 10 mg was incrementally injected into the sacroiliac joint.~ The patient tolerated the procedure well with no complications.~ The patient was observed in the Pain Clinic for a period of 30-45 minutes, then discharged home neurologically intact.~ Plan and Disposition:: Patient was discharged without incident.
[2025-04-17 11:42] VITALS: BP 149/59; PULSE 80; RESP 18; O2SAT 94
[2025-04-17 11:43] VITALS: BP 173/64; PULSE 82; RESP 18; O2SAT 93
== END 2025-04-17 11:42 | disposition home or self-care (01) ==
PROVIDERS: PCP Family Medicine; Visit Provider Nurse Anesthetist, Certified Registered
DX: M46.1 Sacroiliitis, not elsewhere classified (principal); F41.9 Anxiety disorder, unspecified; I10 Essential (primary) hypertension; E03.9 Hypothyroidism, unspecified; R56.9 Unspecified convulsions; F43.20 Adjustment disorder, unspecified; Z87.891 Personal history of nicotine dependence; Z88.5 Allergy status to narcotic agent; Z79.890 Hormone replacement therapy; Z79.899 Other long term (current) drug therapy
CPT/HCPCS: 64450; J0665; J1100; J2003